=== PATIENT | male | born 1945 | race Caucasian/White ===

== ENCOUNTER → 2017-01-14 | Day surgery (SDC) | payer OTHER ==
[2016-12-28 09:05] VITALS: BMI 41.0
[~2017-01-14] VITALS: Ht 177.8 cm; Wt 129.6 kg
[~2017-01-14] MED LIST: ASPEC81 PO; COLE1TAB4 PO; FLNIN NAE; ISOS60TA25 PO; KETAMINE HCL INJ 50 MG/ML 10 ML VIAL ONE; LIDOCAINE HCL 2% 2 ML VIAL (20MG/ML) ONE; LISI-725 PO; METF-383 PO; METO-648 PO; MIDAZOLAM HCL 1 MG/ML 2ML VIAL ONE; MULTTAB58 PO; NITR0.4S UT; OMEG10007 PO; PROPOFOL IV EMULSION 10 MG/ML 20 ML VIAL IV ONE; TRIA37.5 PO
[2017-01-14 13:21] VITALS: Ht 177.8 cm; Wt 129.6 kg
--- NOTE | 2017-01-14 13:30 | Endo History and Physical ---
History & Physical Date of Service: January 14, 2017. Chief Complaint: Hx polyps Referring Physician: Dr. Conner History of Present Illness For Colonoscopy Past Surgical History Hx Cardiac Surgery: Yes (HEART CATH, STENT X1) Hx Internal Defibrillator: No Hx Pacemaker: No Hx Abdominal Surgery: No Hx of Implantable Prosthesis: No Hx Post-Op Nausea and Vomiting: No Hx Cancer Surgery: No Hx Thoracic Surgery: No Hx Orthopedic: No Hx Urinary Tract Surgery: No Family History Colon CA Social History Smoking Status: Never Smoker Hx Substance Use: No Hx Alcohol Use: Yes (OCCASIONAL) Allergies Coded Allergies: Statins (Verified Adverse Reaction, Intermediate, MYALGIAS, 12/28/16) Current Medications Reported Home Medications Medications Dose Route/Sig Max Daily Dose Days Date Category Nitrostat (Nitroglycerin) 0.4 Mg Sub 0.4 Mg UT PRN 06/08/13 Reported Multivitamin (Multiple Vitamin) 1 Tab Tab 1 Tab PO QAM 06/08/13 Reported Micronized Colestipol Hcl (Colestipol Hcl) 1 Gm Tab 2 Tablets PO BID 06/08/13 Reported Glucophage (Metformin Hcl) 850 Mg Tab 850 Mg PO BID 06/08/13 Reported Flonase Nasal [place] (Fluticasone Propionate) 120 Sprays/6000 Mcg Inha 2 Sprays SHASHI DAILY PRN 06/08/13 Reported Dyazide 37.5MG/25MG (Triamterene/HCTZ) Cap 2 Tabs PO QAM 06/08/13 Reported [place]-3 (Fish Oil) 1 Ea Cap 1 Cap PO QAM 09/02/10 Reported Imdur Ext Rel (Isosorbide Mononitrate) 60 Mg Ertab 60 Mg PO QAM 09/02/10 Reported Zestril (Lisinopril) 20 Mg Tab 20 Mg PO BID 09/02/10 Reported Ecotrin Or Generic * (Aspirin) 81 Mg Ectab 81 Mg PO QAM 09/02/10 Reported Vital Signs Weight (Kilograms): 129.55 Height (Feet): 5 Height (Inches): 10 Physical Exam General Appearance: WD/WN Respiratory/Chest: Respiratory effort: no dyspnea Cardiovascular: Heart Auscultation: RRR Abdomen: Inspection & Palpation: soft Assessment and Plan Hx of polyps for colonoscopy
--- NOTE | 2017-01-14 14:04 | Discharge Instructions ---
Endoscopy Patient Instructions Date / Procedure(s) Performed January 14, 2017. Colonoscopy Allergy Information Coded Allergies: Statins (Verified Adverse Reaction, Intermediate, MYALGIAS, 12/28/16) Discharge Date / Findings January 14, 2017. polyp, diverticulosis Medication Instructions Restart Stopped Medication(s): resume meds Reported Home Medications Medications Dose Route/Sig Max Daily Dose Days Date Category Nitrostat (Nitroglycerin) 0.4 Mg Sub 0.4 Mg UT PRN 06/08/13 Reported Multivitamin (Multiple Vitamin) 1 Tab Tab 1 Tab PO QAM 06/08/13 Reported Micronized Colestipol Hcl (Colestipol Hcl) 1 Gm Tab 2 Tablets PO BID 06/08/13 Reported Glucophage (Metformin Hcl) 850 Mg Tab 850 Mg PO BID 06/08/13 Reported Flonase Nasal [place] (Fluticasone Propionate) 120 Sprays/6000 Mcg Inha 2 Sprays SHASHI DAILY PRN 06/08/13 Reported Dyazide 37.5MG/25MG (Triamterene/HCTZ) Cap 2 Tabs PO QAM 06/08/13 Reported [place]-3 (Fish Oil) 1 Ea Cap 1 Cap PO QAM 09/02/10 Reported Imdur Ext Rel (Isosorbide Mononitrate) 60 Mg Ertab 60 Mg PO QAM 09/02/10 Reported Zestril (Lisinopril) 20 Mg Tab 20 Mg PO BID 09/02/10 Reported Ecotrin Or Generic * (Aspirin) 81 Mg Ectab 81 Mg PO QAM 09/02/10 Reported Provider Instructions Activity Restrictions - No exercising or heavy lifting for 24 hours. - Do not drink alcohol the day of the procedure. - Do not drive a car or operate machinery until the day after the procedure. - Do not make any important decisions or sign important papers in 24 hours after the procedure. Following Day: - Return to full activity which may include returning to work/school. Diet Start your diet with liquids and light foods (jello, soup, juice, toast). Then eat your usual diet if not nauseated. Treatment For Common After Affects For mild abdominal pain, bloating, or excessive gas: - Rest - Eat lightly - Lie on right side Follow-Up Information Follow-up with Dr Conner as scheduled Anesthesia Information What You Should Know You have had a procedure that required some medicine to reduce anxiety and discomfort. This treatment is called moderate sedation. After receiving the treatment, you may be sleepy, but you will be able to breathe on your own. The effects of the treatment may last for several hours. Follow these instructions along with Activity/Diet recommendations noted above: * Do NOT do anything where dizziness or clumsiness would be dangerous. * Rest quietly at home today, then you can be up and about tomorrow. * Have a responsible person stay with you the rest of today. * You may have had an I.V. today. If so, you may take the dressing off later today. Recommendations Call your doctor if: * Trouble breathing * Continuous vomiting for more than 24 hours * Temperature above 101 degrees * Severe abdominal pain or bloating * Pain not relieved by pain medicine ordered * There is increased drainage or redness from any incision * A large amount of rectal bleeding greater than 2-3 tablespoons. (If you had a polyp/s removed or have hemorrhoids, a small amount of blood - from the rectum is to be expected.) * You have any unanswered questions or concerns. IN THE EVENT OF A SERIOUS EMERGENCY, GO TO THE NEAREST EMERGENCY ROOM Your discharge instructions were prepared by provider Juan Ornelas. Patient Instructions Signature Page Moisés Peterson Patient (or Guardian) Signature/Date: I have read and understand the instructions given to me by my caregivers. Caregiver/RN/Doctor Signature/Date: The above-named patient and/or guardian has received patient instructions on this date. + Original Patient Signature Page (only) stays with chart. Please make copy for patient.
--- NOTE | 2017-01-14 14:08 | GI REPORT ---
Procedure Date: 01/14/2017 1:29 PM Procedure: Colonoscopy Indications: Personal history of colonic polyps Medicines: Midazolam 2 mg IV, Propofol total dose 120 mg IV, Lidocaine 40 mg IV, Ketamine 20 mg IV Complications: No immediate complications. Estimated Blood Loss: Estimated blood loss was minimal. Procedure: Pre-Anesthesia Assessment: - Prior to the procedure, a History and Physical was performed, and patient medications, allergies and sensitivities were reviewed. The patient's tolerance of previous anesthesia was reviewed. - The risks and benefits of the procedure and the sedation options and risks were discussed with the patient. All questions were answered and informed consent was obtained. After I obtained informed consent, the scope was passed under direct vision. Throughout the procedure, the patient's blood pressure, pulse, and oxygen saturations were monitored continuously. The scope was introduced through the anus and advanced to the cecum, identified by appendiceal orifice and ileocecal valve. The colonoscopy was performed without difficulty. The patient tolerated the procedure well. The quality of the bowel preparation was good. Findings: A few diverticula were found in the sigmoid colon. A 3 mm polyp was found in the rectum. The polyp was sessile. The polyp was removed with a cold biopsy forceps. Resection and retrieval were complete. Estimated blood loss was minimal. Impression: - Diverticulosis in the sigmoid colon. - One 3 mm polyp in the rectum, removed with a cold biopsy forceps. Resected and retrieved. Recommendation: - Discharge patient to home (ambulatory). - Continue present medications. - Await pathology results. - Return to primary care physician SHANIN. Juan Ornelas M.D. Juan Ornelas MD 01/14/2017 2:07:34 PM This report has been signed electronically. Note Initiated On: 01/14/2017 1:29 PM I attest to the content of the Intraoperative Record and orders documented therein, exceptions below
--- NOTE | 2017-01-14 14:26 | Anesthesiology Progress Note ---
Anesthesia Post Op Note Date & Time January 14, 2017 at 14:26 Vital Signs Vital Signs Past 12 Hours Date Time Temp Pulse Resp B/P Pulse Ox O2 Delivery O2 Flow Rate FiO2 01/14/17 14:21 69 18 119/69 95 Room Air 01/14/17 14:10 73 16 100/70 95 Room Air 01/14/17 13:32 36.3 87 18 149/85 97 Room Air Notes Mental Status: alert / awake / arousable, participated in evaluation Pt Amnestic to Procedure: Yes Nausea / Vomiting: adequately controlled Pain: adequately controlled Airway Patency, RR, SpO2: stable & adequate BP & HR: stable & adequate Hydration State: stable & adequate Anesthetic Complications: no major complications apparent Pt doing well.
[2017-01-14 14:40] VITALS: BP 145/82; PULSE 63; O2SAT 96
== END | disposition home or self-care (01) ==
LOC: C.GI 13:03
PROVIDERS: ATTEND Internal Medicine Gastroenterology
DX: K62.1 Rectal polyp (principal); K57.30 Diverticulosis of large intestine without perforation or abscess without bleeding; Z86.010 Personal history of colon polyps; Z80.0 Family history of malignant neoplasm of digestive organs; Z95.5 Presence of coronary angioplasty implant and graft; Z79.84 Long term (current) use of oral hypoglycemic drugs; Z79.899 Other long term (current) drug therapy

== ENCOUNTER 2017-12-21 09:18 | Observation (INO) | payer OTHER ==
[~2017-12-21] VITALS: Ht 175.3 cm; Wt 131.3 kg
[~2017-12-21 09:18] MED LIST changes: -KETAMINE HCL INJ 50 MG/ML 10 ML VIAL ONE; -LIDOCAINE HCL 2% 2 ML VIAL (20MG/ML) ONE; -METO-648 PO; +METO200T31 PO; -MIDAZOLAM HCL 1 MG/ML 2ML VIAL ONE; -PROPOFOL IV EMULSION 10 MG/ML 20 ML VIAL IV ONE
[2017-12-21 09:44] LABS: HEMATOCRIT 40.9 % (42-52); HEMOGLOBIN 13.9 g/dL (14.0-18.0); MEAN CELL VOLUME 88.9 fL (80-100); MEAN CORPUSCULAR HEMOGLOBIN 30.2 pg (25-34); MEAN PLATELET VOLUME 10.2 fL (7.4-10.4); PLATELET COUNT 238 K/uL (130-400); RED CELL DISTRIBUTION WIDTH CV 14.1 % (11.5-14.5); WHITE BLOOD COUNT 9.39 K/uL (4.8-10.8)
[2017-12-21 09:52] LABS: PTT PATIENT 24.5 SECONDS (21.0-31.0)
[2017-12-21 09:57] LABS: ALBUMIN 3.7 gm/dl (3.4-5.0); ALT/SGPT 37 U/L (12-78); AST/SGOT 38 U/L (15-37); BLOOD UREA NITROGEN 23 mg/dl (7-18); CALCIUM 8.9 mg/dl (8.5-10.1); CARBON DIOXIDE 24 mmol/L (21-32); GLUCOSE 114 mg/dl (70-99); POTASSIUM 4.3 mmol/L (3.5-5.1); SODIUM 138 mmol/L (136-145)
[2017-12-21 10:01] LABS: ALKALINE PHOSPHATASE 86 U/L (45-117); CKMB 0.5 ng/ml (0.5-3.6); TOTAL PROTEIN 7.1 gm/dl (6.4-8.2)
--- NOTE | 2017-12-21 10:15 | DIAGNOSTIC IMAGING REPORT ---
SINGLE VIEW CHEST CLINICAL HISTORY: Atypical chest pain. FINDINGS: An AP, portable, upright chest radiograph is compared to study dated 06/13/2014. The heart is enlarged. There is pulmonary vascular congestion. No airspace consolidation or large pleural effusion is identified. No pneumothorax is seen. The skeletal structures are osteopenic. The bony thorax is grossly intact. IMPRESSION: Cardiomegaly with evidence of mild congestive failure. Electronically signed by: Nikolai Bacon M.D. 12/21/2017 10:14 AM Dictated Date/Time: 12/21/2017 10:13 AM
[2017-12-21] MEDS ORDERED: MoRPHine SULFATE 4 MG/ML 1 ML CARP\\VIAL IV STA (11:07)
[2017-12-21] MEDS ORDERED: ONDANSETRON INJ 2 MG/ML 2 ML VIAL IV. SCH (11:15)
--- NOTE | 2017-12-21 11:49 | EMERGENCY ROOM VISIT NOTE ---
History First contact with patient: 09:35 Chief Complaint: CHEST PAIN Stated Complaint: CHEST PAIN Nursing Triage Summary: PT HERE WITH CHEST PAIN X A FEW WEEKS, PT STATES BECAME WORSE YESTERDAY. PT STATES INCREASED WITH MOVEMENT. PT DENIES ANY SOB, NAUSEA OR DIAPHORESIS. NO RADIATION OF PAINS. PT DOES HAVE SOME PITTING EDEMA TO BILATERAL LOWER LEGS. PT HAS HX OF CT 10 YEARS AGO. PT STATES TOOK NITRO FOR THE FIRST TIME IN 10 YEARS WITH ALLEVIATION OF PAIN History of Present Illness The patient is a 72 year old male who presents to the Emergency Room via EMS with complaints of chest pain. Patient states that he has had dull chest pain intermittently for the last week. He states the pain was just left of the sternum. He states he took nitro yesterday and it went away completely. He describes the pain as a pressure sensation and currently rates it at a 2 out of 10. This morning at 7:30 AM he states it was more severe and was worse when he got up from a sitting position. The EMS gave him nitroglycerin and aspirin. He states his pain did not completely go away. The patient denies any pain radiating to his arm or jaw. The patient denies any associated diaphoresis, shortness of breath, nausea or vomiting. The patient is not on any blood thinners. The patient states that he had an CT in the past approximately 10 years ago and was seen by Dr. Canchola and had a stent placed. He is unsure of where the CT was located. The patient states that he always has pitting edema of both his lower legs. He states that is not worse than normal. The patient is followed by [facility]. Review of Systems 10 system review was performed and was negative unless stated otherwise history of present illness. Past Medical/Surgical History Medical Problems: (1) Ankle pain (2) Gout of ankle (3) Heart disease (4) Hyperlipidemia Nec/Nos (5) Hypertension Nos (6) Leg edema, right (7) Personal History Of Pulmonary Embolism Family History Heart disease Social History Smoking Status: Never Smoker Alcohol Use: none Drug Use: none Marital Status: Housing Status: lives with family Occupation Status: retired Current/Historical Medications Scheduled Aspirin Enteric Coated (Ecotrin Or Generic *), 81 MG PO QAM Colestipol Hcl (Micronized Colestipol Hcl), 2 TABLETS PO BID Fish Oil ([place]-3), 1 CAP PO QAM Isosorbide Mononitrate Ext Rel (Imdur Ext Rel), 60 MG PO QAM Lisinopril (Zestril), 20 MG PO BID Metformin Hcl (Glucophage), 850 MG PO BID Metoprolol Succinate (Toprol Xl), 200 MG PO QAM Multiple Vitamin (Multivitamin), 1 TAB PO QAM Nitroglycerin (Nitrostat), 0.4 MG UT PRN Triamterene/Hctz (Dyazide 37.5MG/25MG), 2 TABS PO QAM Scheduled PRN Fluticasone Propionate (Flonase Nasal [place]), 2 SPRAYS SHASHI DAILY PRN for NASAL CONGESTION Physical Exam Vital Signs Date Time Temp Pulse Resp B/P (MAP) Pulse Ox O2 Delivery O2 Flow Rate FiO2 12/21/17 11:30 77 21 177/93 96 Room Air 12/21/17 10:28 63 16 155/87 97 Room Air 12/21/17 09:42 96 Room Air 12/21/17 09:42 96 Room Air 12/21/17 09:37 70 12/21/17 09:22 36.6 70 16 153/77 96 Room Air Physical Exam GENERAL: Morbidly obese 72-year-old white male appears in no acute distress. He is resting comfortably on the stretcher. MENTAL Status alert and oriented 3. EYES: PERRLA. EOMs intact. EARS: Canals clear. TMs without fluid level noted. NECK: Supple, no lymphadenopathy noted. No carotid bruits noted. LUNGS: Clear auscultation without wheezes rales or rhonchi. CARDIAC: Regular rate and rhythm without murmur. Pulses is full and equal throughout. CHEST WALL: Nontender to palpation. ABDOMEN: Positive bowel sounds all 4 quadrants. Soft, nontender to palpation. Difficult to evaluate for organomegaly or masses secondary to patient's size. LOWER EXTREMITIES: 1+ pitting edema bilaterally. No erythema or cyanosis noted. Calves are nontender. Medical Decision & Procedures ER Provider Diagnostic Interpretation: SINGLE VIEW CHEST CLINICAL HISTORY: Atypical chest pain. FINDINGS: An AP, portable, upright chest radiograph is compared to study dated 06/13/2014. The heart is enlarged. There is pulmonary vascular congestion. No airspace consolidation or large pleural effusion is identified. No pneumothorax is seen. The skeletal structures are osteopenic. The bony thorax is grossly intact. IMPRESSION: Cardiomegaly with evidence of mild congestive failure. Electronically signed by: Nikolai Bacon M.D. 12/21/2017 10:14 AM Laboratory Results 12/21/17 08:29 12/21/17 08:29 Test 12/21/17 08:29 12/21/17 11:05 Red Blood Count 4.60 M/uL (4.7-6.1) Mean Corpuscular Volume 88.9 fL (80-100) Mean Corpuscular Hemoglobin 30.2 pg (25-34) Mean Corpuscular Hemoglobin Concent 34.0 g/dl (32-36) RDW Standard Deviation 46.0 fL (36.4-46.3) RDW Coefficient of Variation 14.1 % (11.5-14.5) Mean Platelet Volume 10.2 fL (7.4-10.4) Prothrombin Time 10.3 SECONDS (9.0-12.0) Prothromb Time International Ratio 1.0 (0.9-1.1) Activated Partial Thromboplast Time 24.5 SECONDS (21.0-31.0) Partial Thromboplastin Ratio 0.9 Anion Gap 9.0 mmol/L (3-11) Est Creatinine Clear Calc Drug Dose 58.8 ml/min Estimated GFR () 52.8 Estimated GFR (Non- 45.5 BUN/Creatinine Ratio 15.6 (10-20) Calcium Level 8.9 mg/dl (8.5-10.1) Total Bilirubin 0.5 mg/dl (0.2-1) Aspartate Amino Transf (AST/SGOT) 38 U/L (15-37) Alanine Aminotransferase (ALT/SGPT) 37 U/L (12-78) Alkaline Phosphatase 86 U/L (45-117) Total Creatine Kinase 58 U/L (39-308) Creatine Kinase MB 0.5 ng/ml (0.5-3.6) Creatine Kinase MB Ratio 0.9 (0-3.0) Total Protein 7.1 gm/dl (6.4-8.2) Albumin 3.7 gm/dl (3.4-5.0) Globulin 3.4 gm/dl (2.5-4.0) Albumin/Globulin Ratio 1.1 (0.9-2) Troponin I < 0.015 ng/ml (0-0.045) Medications Administered Medications (Trade) Dose Ordered Sig/John Route Start Time Stop Time Status Last Admin Dose Admin Morphine Sulfate (MoRPHine SULFATE INJ) 4 mg NOW STAT IV 12/21/17 11:07 12/21/17 11:09 DC 12/21/17 11:22 4 MG Ondansetron HCl (Zofran Inj) 4 mg Q6H IV. 12/21/17 11:15 01/20/18 11:14 12/21/17 11:22 4 MG ECG Per My Interpretation Indication: chest pain Rhythm: sinus rhythm Findings: 1st degree AV block, no acute ischemic change Change: no significant change ED Course She was evaluated. The patient was placed on a monitor and continuous pulse ox. EKG was ordered interpreted without any acute findings. This was compared to prior EKG of June 13, 2014. There reveals sinus rhythm with first-degree AV block. Inferior infarct age undetermined as well as anterior lateral infarct age undetermined that this was similar to prior EKG. No acute ST changes noted. IV access was obtained. CBC and differential, complete metabolic profile, CK-MB, coags, troponin was ordered. Urinalysis was ordered. The patient had already received nitroglycerin and aspirin in route. Chest x- ray was ordered interpreted by the radiologist and myself as above with cardiomegaly and mild congestive heart failure. Remainder of labs were unremarkable. Troponin was normal. A second troponin was ordered and was also within normal range. Patient was independently evaluated by Dr. Mccallum who agree with treatment plan. The patient was given morphine 4 mg IV for pain. Hospitalist was consulted for admission for cardiac rule out.. Medical Decision Due to the patient's history of CAD, his obesity, and mild CHF I felt that it was reasonable to admit the patient for cardiac rule out. Other etiologies which I were of low suspicion were pneumonia, bronchitis, costochondritis, pulmonary embolus, muscular strain [place] Drug Monitoring Program Search Results: patient reviewed within database Medication Reconcilliation Current Medication List: was personally reviewed by me Blood Pressure Screening Patient's blood pressure: Elevated blood pressure Impression Primary Impression: Chest pain in adult Departure Information Dispostion Being Evaluated By Hospitalist Condition GOOD Referrals Sohan Lawler M.D. (PCP) Patient Instructions My [facility]
[2017-12-21 11:56] VITALS: Ht 175.3 cm; Wt 131.3 kg
[2017-12-21] MEDS ORDERED: POLYETHYLENE (MIRALAX) 17 GM PACK PO PRN (14:00)
[2017-12-21] MEDS ORDERED: ZOLPIDEM TARTRATE 5 MG TAB PO PRN (14:00)
[2017-12-21] MEDS ORDERED: FLUTICASONE PROPIONATE NA SPR 16 GM BTL NAE PRN (14:00)
[2017-12-21] MEDS ORDERED: ACETAMINOPHEN 325 MG TAB PO PRN (14:00)
[2017-12-21] MEDS ORDERED: NITROGLYCERIN 0.4 MG SL PER TAB CHARGE SL PRN (14:00)
[2017-12-21] MEDS ORDERED: MAGNESIUM HYDROXIDE SUSP 30 ML UDC PO PRN (14:00)
[2017-12-21] MEDS ORDERED: ONDANSETRON INJ 2 MG/ML 2 ML VIAL IV PRN (14:00)
[2017-12-21] MEDS ORDERED: ALUMINUM/MAGNESIUM/SIMETH (MAALOX MAX) 30 ML UDC PO PRN (14:00)
--- NOTE | 2017-12-21 14:11 | History and Physical ---
History & Physical Date of Service Dec 21, 2017. History & Physical chest pain rule out, [id number]
[2017-12-21] MEDS ORDERED: GLUCAGON FOR INJ 1 MG VIAL SQ PRN (14:15)
[2017-12-21] MEDS ORDERED: GLUCOSE 10 TABS/TUBE PO PRN (14:15)
[2017-12-21] MEDS ORDERED: DEXTROSE 50% 50 ML SYR IV PRN (14:15)
[2017-12-21] MEDS ORDERED: GLUCOSE 40% GEL 15 GM TUBE PO PRN (14:15)
[2017-12-21 14:17] LABS: HEMOGLOBIN A1C 6.6 % (4.5-5.6)
[2017-12-21] MEDS ORDERED: IV FLUIDS COMPLETED PRN (14:45)
[2017-12-21 14:57] VITALS: BP 156/87; PULSE 59; TEMP 36.3; O2SAT 95
--- NOTE | 2017-12-21 15:39 | HISTORY & PHYSICAL EXAMINATION ---
DATE OF ADMISSION: 12/21/2017 This is observation H&P. CHIEF COMPLAINT: Chest pain. HISTORY OF PRESENT ILLNESS: Patient is a 72-year-old white male with a significant past medical history of CAD, stent, gout, dyslipidemia, hypertension, pulmonary embolization came to the hospital Emergency Department because of the above chief complaint. Patient reported has been having chest pain, intermittent for several weeks. Yesterday afternoon and today it is getting worse, associated with some middle chest tight. It was so severe and getting worse when getting up from sitting positions. He called EMS. EMS gave him nitroglycerin and aspirin. He reported the pain did not completely go away. Denied any radiations. Denied any association with diaphoresis or shortness of breath or nausea and vomiting. He reported history of PE, but is not on any blood thinners. History of acute MT, had a cardiac catheterization and stent by Dr. Canchola, 10-year ago. Patient was to follow up with [facility] PCP. His PCP is no more with [facility] system. When I interviewed the patient, he is pleasant, awake, alert and orientated. Reports still has mild chest tight and uncomfortable appropriately 10/12. Denied fever or chills. Denied shortness of breath. Denied cough or sputum. Denied hemoptysis. Denied nausea, vomiting, abdominal pain, diarrhea or constipation. Denied dysuria, urgency and frequencies. Denied skin rashes. PAST MEDICAL HISTORY: Like I mentioned in the above which include CAD, obesity, mild CHF, dyslipidemia, hypertension, history of PE. ALLERGIES: STATINS. FAMILY HISTORY: Includes heart disease. SOCIAL HISTORY: Never smoked. Denied alcohol abuse disorder, denied illicit drug abuse. Patient is retired. MEDICATIONS: Include aspirin 81 mg p.o. daily, colestipol 2 tablets p.o. b.i.d., fish oil 1 cap p.o. q.a.m., Imdur 60 mg p.o. q.a.m., lisinopril 20 mg p.o. b.i.d., metformin 850 mg p.o. b.i.d., metoprolol 200 mg p.o. q.a.m., multivitamin 1 tab p.o. q.a.m., nitroglycerin 0.4 mg p.o. p.r.n. for chest pain, Dyazide 37.5/25 two tab p.o. q.a.m., Flonase 2 sprays bilateral nose p.r.n. for nasal congestion. REVIEW OF SYSTEMS: Please see HPI, otherwise 14-point organ system review were negative. PHYSICAL EXAMINATION: VITAL SIGNS: Temperature is 36.6, pulse 86, respiratory rate 16, blood pressure 153/77, pulse ox 96% on room air. GENERAL: Patient is a white male, awake, alert and orientated, obesity, pleasant, conversational, in no acute distress. HEAD: Normocephalic. EYES: Pupils equal, round, responds to light. EARS: Ear was normal. NOSE: Normal. NECK: Supple. Thyroid no enlargement. Trachea midline. HEART: Regular rhythm. S1, S2. LUNGS: Decreased breathing sounds. There were no wheezing, rhonchi or crackles. ABDOMEN: Obese, soft, nontender. Bowel sound was positive. Bilateral CVA was nontender. GENITOURINARY AND RECTAL: Deferred. BILATERAL LOWER EXTREMITIES: 1+ pitting edema. There was no cyanosis, no clubbing. LABORATORY STUDIES: WBC 9.3, hemoglobin 13, platelet 238. BUN 23, creatinine 1.5 compared to baseline creatinine 1.3. Blood glucose 114. Sodium 138. Potassium 4.3. WBC 9.3. IMAGING STUDIES: Chest x-ray in the Emergency Room shows cardiomegaly with evidence of mild congestive failure. EKG was done which shows sinus rhythm, first degree AV block, left axis deviations, low voltages of QRS, inferior old infarctions. There were no obvious ST-T phase changes. ASSESSMENT AND PLAN: A 72-year-old white male with the conditions as below: 1. Chest pain, rule out ACS , with history of coronary artery disease, stent. 2. History of pulmonary embolism, not on any anticoagulation. 3. Accelerated hypertension. 4. Possible mild congestive heart failure with 1+ edema and mild lung congestion in chest x-ray, possible compensated. 5. History of gout and dyslipidemia. PLAN: 1. Patient has obvious history of chest pain, history of coronary artery disease, stent. Two sets of cardiac enzyme troponin is negative. Will observation in the hospital, cardiac enzyme troponin x2 sets more. Continue home medications include aspirin and beta ruby, will have cardiology consultation. We will order a stress echo tomorrow if able to do it. Check BNP. Patient possible dose not need to have further evaluation for PE for now because he has no chest pain, no cough, no hemoptysis. He does not have any complaint of lower extremity calf pain. His oxygen is 96% in room air, however he has hx of PE, with mild elevated Ddimer,will do chest CT to rule out PE, discussed risks and benefits of iv cont, pt agrees to take risks, will give some ivf. f/u renal function. 2. Patient has acute kidney injuries. I will hold metformin, 3. hx of DMII, hold metformin,check HbA1c, order insulin sliding scale, will continue SOPHIE inhibitor for now, will check BNP as well. 4 . Continue home other medications. Check fasting lipid panel. 5. I discussed with patient about the care plan and answered all their questions, patient is full code. MTDD
--- NOTE | 2017-12-21 15:41 | EMERGENCY ROOM VISIT NOTE ---
ED Visit Note First contact with patient: 09:35 I have personally seen and evaluated the patient with the PA. I agree with the diagnosis and management decisions and have been personally involved in the case. Please see Nataly Villanueva PA-C's notes for further details of the history, physical and visit.
[2017-12-21 16:00] VITALS: O2SAT 95
[2017-12-21] MEDS ORDERED: OPTIRAY 320 IV PRN (16:00)
--- NOTE | 2017-12-21 17:12 | DIAGNOSTIC IMAGING REPORT ---
CT ANGIOGRAM OF THE CHEST CLINICAL HISTORY: Elevated d-dimer. COMPARISON STUDY: Chest x-ray dated 12/21/2017. Chest CT scan dated 10/06/2010. TECHNIQUE: Following the IV administration of approximately 60 cc of Optiray 320, CT angiogram of the chest was performed from the upper abdomen to the thoracic inlet utilizing the pulmonary embolus protocol. Images are reviewed in the axial, sagittal, and coronal planes. 3-D MIPS images are created and assessed. IV contrast was administered without complication. A dose lowering technique was utilized adhering to the principles of ALARA. There was an IV tubing malfunction during injection and only approximately half of the intended 118 cc bolus was injected. There is adequate opacification of the pulmonary arteries. The examination is degraded by motion artifact. CT DOSE: 688.44 mGy.cm FINDINGS: Thyroid: Imaged portions of the thyroid gland are normal in size and attenuation. Thoracic aorta: The thoracic aorta is normal in caliber and demonstrates 4-vessel variant arch anatomy. No dissection is seen. Pulmonary vasculature: The pulmonary trunk is normal in caliber. There are no filling defects identified in main, lobar, or proximal segmental pulmonary branches to suggest pulmonary embolus. Evaluation of the peripheral branches is degraded by motion artifact and suboptimal contrast opacification. Heart: The heart is mildly enlarged and without pericardial effusion. The coronary arteries are densely calcified. Lungs and pleural spaces: Evaluation of the lung parenchyma is degraded by motion artifact. No airspace consolidation or pleural effusion is identified. The trachea and central airways appear clear. Mediastinum: There is no mediastinal lymphadenopathy. Anita: Clear. Axillae: There is no axillary lymphadenopathy. Upper abdomen: Partially visualized upper abdominal viscera is within normal limits. Skeletal structures: The skeletal structures are osteopenic. 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 Arthritic change is also seen in the shoulders. No lytic or blastic bony lesions are seen. IMPRESSION: 1. Motion compromised examination. 2. There is no evidence of central pulmonary embolus in the main, lobar, or proximal segmental pulmonary arteries. 3. No airspace consolidation or pleural effusion is identified. 4. Cardiomegaly. Electronically signed by: Nikolai Bacon M.D. 12/21/2017 5:11 PM Dictated Date/Time: 12/21/2017 5:06 PM
[2017-12-21] MEDS: INSULIN ASPART 100 UNITS/ML 3 ML PEN SC SCH ×2 (17:36→21:00)
[2017-12-21] MEDS ORDERED: SODIUM CHLORIDE 0.9% 1000ML 1,000 ML IV SCH (17:45)
[2017-12-21 18:21] VITALS: BP 143/74; PULSE 56; TEMP 36.5; O2SAT 96
[2017-12-21] MEDS ORDERED: ENOXAPARIN 40 MG/0.4 ML SYR SC SCH (21:00)
[2017-12-21] MEDS: COLESTIPOL HCL 1 GM TAB PO SCH (21:21)
[2017-12-21] MEDS: HEPARIN SOD 5000 UNIT/0.5 ML CARP SQ SCH (21:22)
[2017-12-21] MEDS: LISINOPRIL 20 MG TAB PO SCH (21:24)
[2017-12-21 22:46] VITALS: BP 113/68; PULSE 56; TEMP 36.5; O2SAT 94
[2017-12-22] VITALS (7 sets, daily range): BP systolic 98–128; BP diastolic 57–76; PULSE 57–63; TEMP 36.5–36.8; O2SAT 92–96
[2017-12-22] MEDS: MoRPHine SULFATE 2 MG/ML CARP IV PRN ×2 (03:57→15:41)
[2017-12-22] MEDS: OMEGA-3 (PURIFIED FISH OIL) 1 GM CAP PO SCH (08:55)
[2017-12-22] MEDS: TRIAMTERENE/HCTZ 37.5/25MG CAP PO SCH (08:55)
[2017-12-22] MEDS: LISINOPRIL 20 MG TAB PO SCH ×2 (08:55→21:10)
[2017-12-22] MEDS: ISOSORBIDE MONONITRATE 60 MG TABCR PO SCH (08:56)
[2017-12-22] MEDS: MULTIVITAMIN TAB PO SCH (08:56)
[2017-12-22] MEDS: METOPROLOL SUCC 50MG EXT REL TAB PO SCH (08:56)
[2017-12-22] MEDS: ASPIRIN 81 MG ECTAB PO SCH (08:57)
[2017-12-22] MEDS: HEPARIN SOD 5000 UNIT/0.5 ML CARP SQ SCH ×2 (08:59→21:13)
[2017-12-22] MEDS ORDERED: ASPIRIN 81 MG ECTAB PO SCH (09:00)
[2017-12-22] MEDS: INSULIN ASPART 100 UNITS/ML 3 ML PEN SC SCH ×4 (09:55→21:00)
[2017-12-22] MEDS: COLESTIPOL HCL 1 GM TAB PO SCH ×2 (09:55→21:10)
[2017-12-22 10:01] LABS: BLOOD UREA NITROGEN 23 mg/dl (7-18); CALCIUM 9.1 mg/dl (8.5-10.1); CARBON DIOXIDE 28 mmol/L (21-32); CREATININE 1.51 mg/dl (0.60-1.40); GLUCOSE 124 mg/dl (70-99); POTASSIUM 4.3 mmol/L (3.5-5.1); SODIUM 138 mmol/L (136-145)
[2017-12-22 10:06] LABS: CHOLESTEROL 208 mg/dl (0-200); LDL CHOLESTEROL CALCULATED 92 mg/dl; PHOSPHORUS 3.1 mg/dl (2.5-4.9)
--- NOTE | 2017-12-22 13:48 | CARDIOLOGY CONSULTATION ---
DATE OF CONSULTATION: 12/22/2017 TIME: 11:58 a.m. CONSULTING PHYSICIAN: Saran Martinez MD REASON FOR CONSULTATION: Chest pain. PRIMARY TUB ATTENDANT: Dr. Canchola. HISTORY OF PRESENT ILLNESS: Mr. Peterson is a very pleasant 72-year-old gentleman with a history significant for CAD status post anterior MN in August of 2007, status post PCI, ischemic cardiomyopathy, type 2 diabetes, hypertension, dyslipidemia intolerant to statin therapy, who presented to [facility] with chest pain. He states for the past 2 weeks he has had intermittent chest discomfort, but his symptoms severely worsened 2 days ago. Two days ago after he had a bowel movement, he got up from the commode and had a left-sided sharp chest pain that was much more severe than anything he has experienced in the past. He took nitroglycerin and his pain resolved within 30 minutes. He took another nitroglycerin later that evening for chest discomfort as well. Yesterday morning, he had another bowel movement and when he got up off the commode he once again had chest discomfort; however, this time it was substernal and very severe sharp pain that lasted 15 seconds. He took nitroglycerin which improved his symptoms quickly, but his symptoms did not resolve. He then had a dull sensation that lasted a couple of hours before completely resolved. He states that if he is completely still. He is asymptomatic, but when he gets up or sometimes twists in bed, he will get a mild chest discomfort. There is no radiation of the pain, no shortness of breath, no diaphoresis, and no other associated symptoms. When asked if ambulation improves or worsens his pain, he was not entirely sure. He states that his answers may not be 100% accurate with some of the finer details of his history. He is certain, however, that this dull pain reminds him of his prior myocardial infarction and is such that the symptoms are similar. The sharp pain was unlike anything he has experienced in the past. He is currently chest pain free. He denies shortness of breath, syncope, near syncope, palpitations, edema, melena, hematochezia, hematuria, bleeding, abdominal pain, nausea, vomiting, fevers or chills. REVIEW OF SYSTEMS: As above. Review of systems is otherwise negative/unremarkable. PAST MEDICAL HISTORY: 1. CAD status post anterior MN and LAD PCI with a 3.5 x 15 mm stent in the early mid LAD on 08/04/2007. He also documented ostial circumflex 70% and a subtotal distal RCA stenosis per report. 2. Ischemic cardiomyopathy. 3. Type 2 diabetes. 4. Hypertension. 5. Dyslipidemia, intolerant to statin therapy. 6. Meniere's disease. 7. Pulmonary embolism. HOME MEDICATIONS: Include aspirin 81 mg daily, metoprolol succinate 200 mg daily, Imdur 60 mg daily, lisinopril 20 mg b.i.d., metformin 850 mg b.i.d., colestipol 2 tablets twice daily, fish oil 1 tablet daily, Dyazide 37.5/25 two tabs daily. INPATIENT MEDICATIONS: Include aspirin 81 mg daily, colestipol 1 gram b.i.d., fish oil 1 gram daily, heparin 5,000 units subQ q. 12 hours, Imdur 60 mg daily, lisinopril 20 mg b.i.d., metoprolol succinate 200 mg daily, Dyazide 37.5/25 two capsules daily. ALLERGIES: He is intolerant to statin therapy. SOCIAL HISTORY: Denies tobacco, alcohol abuse. He has not been . He has no children. He lives alone. He is retired and moved to [place], [place] from [place]. He is currently alone in his hospital room. FAMILY HISTORY: Father from [place] at age 60. Mother had [place] at approximately 64 years of age. PHYSICAL EXAMINATION: VITAL SIGNS: Temperature 36.7 degrees, heart rate 62 beats per minute, respiration rate 20, blood pressure 128/76 mmHg, oxygen saturation is 96% on room air, weight 131.8 kilogram. GENERAL: No acute distress. He is alert and oriented. HEENT: Anicteric sclerae. NECK: Thick, but no appreciable JVD. No bruits. Normal carotid upstrokes bilaterally. CARDIAC EXAMINATION: PMI was nonpalpable. There was no ventricular heave. Regular, normal S1 and S2. No audible murmurs, rubs or gallops. LUNGS: Clear to auscultation bilaterally without wheezes, rales or rhonchi. ABDOMEN: Soft, nontender, nondistended. Normoactive bowel sounds, no bruits noted. EXTREMITIES: No cyanosis or pitting edema. 2+ radial pulses bilaterally. 2+ dorsalis pedis pulses bilaterally. No palpable cords. CHEST: Nontender to palpation. PSYCHIATRIC: Affect appears appropriate. LABORATORY DATA: White blood cell count is 9.39, hemoglobin 13.9, platelets 238. Sodium 138, potassium 4.3, BUN 23, creatinine 1.51, magnesium 1.9. Troponin negative x5. ProBNP 302, triglycerides 360. Cholesterol 208, LDL 92, HDL 44. D-dimer 510. CT angiogram of the chest 12/21/2017 reported motion compromised exam. No evidence of central PE. ECG personally reviewed demonstrating sinus rhythm with first degree AV block at 73 BPM, inferior and anterior infarct suggested. Telemetry personally reviewed. He had a 6 beat episode of accelerated idioventricular rhythm as well as a ventricular triplet. No other arrhythmia. Cardiac catheterization findings as noted above. Echocardiogram 09/09/2010 reported LV systolic function of 35%-40%. There was apical akinesis and septal akinesis per report. ASSESSMENT AND PLAN: 1. Atypical chest pain: His chest discomfort was atypical. It tends to occur with movement; however, this could represent a musculoskeletal component as twisting of his torso appears to cause his symptoms as well as getting up from a seated position. It is unclear if actual ambulation worsens his symptoms. Given the fact, however, that it resembles his prior angina during his myocardial infarction, it would not be unreasonable to undergo the dobutamine stress echo that is currently pending for tomorrow. His troponins were not elevated and he did have a prolonged episode of chest discomfort, which would make ischemic causes of his pain less likely, but he does continue to have the pain and therefore, ischemic evaluation is reasonable. There is no urgent indication for cardiac catheterization. 2. Coronary artery disease status post percutaneous coronary intervention. Continue aspirin 81 mg daily indefinitely. Chest discomfort as described above. Continue beta ruby. He is intolerant to statin therapy. 3. Hypertension: Blood pressure adequately controlled. Continue home regimen. 4. Dyslipidemia: Intolerant to statin therapy. 5. Ischemic cardiomyopathy: Echocardiogram to further evaluate his LV systolic function as part of the stress echo, he appears to be compensated and euvolemic on exam. Continue beta ruby and SOPHIE inhibitor. 6. Disposition: Cardiology will continue to follow. Dr. Canchola, his primary employment security officer, will resume his cardiology care tomorrow. Greater than 40 minutes time spent with greater than 50% of time spent counseling patient. Thank you for allowing me to participate in care of Mr. Peterson.
--- NOTE | 2017-12-22 21:54 | Progress Note ---
Subjective Date of Service: Dec 22, 2017. Subjective Pt evaluation today including: conversation w/ patient, physical exam, lab review, conversation w/ programmer analyst consultant, review of inpatient medication list Pain: chest pressure when he walked in [place] PO Intake: adequate Voiding: no voiding problems patient described recent chest pain as sharp, midsternal, first occurred after having BM on Saturday then occurred on Saturday, was not exerting himself relieved with Nitro similar to pain when he had NH 10 years ago admits that he is not active, does not exert himself, suffers from gout has been sedentary for a year, increased fatigue, weight gain labs show negative troponin x 5 sets, EKG shows 1st degree AV block CTA chest negative for PE later in afternoon patient ambulated in the halls, had chest pressure, had to sit back down discussed with Dr. Bentley, plan for dobutamine stress echo tomorrow Problem List Medical Problems: (1) Chest pain in adult Status: Acute Review of Systems Constitutional: + weakness, + fatigue Cardiac: + chest pain All Other Systems: Reviewed and Negative Medications Current Inpatient Medications Medications (Trade) Dose Ordered Sig/John Route Start Time Stop Time Status Last Admin Dose Admin Acetaminophen (Tylenol Tab) 650 mg Q4H PRN PO 12/21/17 14:00 01/20/18 13:59 Al Hydrox/Mg Hydrox/Simethicone (Maalox Max Susp) 15 ml Q4H PRN PO 12/21/17 14:00 01/20/18 13:59 Magnesium Hydroxide (Milk Of Magnesia Susp) 30 ml Q12H PRN PO 12/21/17 14:00 01/20/18 13:59 Zolpidem Tartrate (Ambien Tab) 5 mg HSZ PRN PO 12/21/17 14:00 01/20/18 13:59 Ondansetron HCl (Zofran Inj) 4 mg Q6H PRN IV 12/21/17 14:00 01/20/18 13:59 Nitroglycerin (Nitrostat Tab) 0.4 mg UD PRN SL 12/21/17 14:00 01/20/18 13:59 Morphine Sulfate (MoRPHine SULFATE INJ) 2 mg Q30M PRN IV 12/21/17 14:00 01/04/18 13:59 12/22/17 15:41 2 MG Aspirin (Ecotrin Tab) 81 mg QAM PO 12/22/17 09:00 01/21/18 08:59 12/22/17 08:57 81 MG Polyethylene (Miralax Powder Packet) 17 gm DAILY PRN PO 12/21/17 14:00 01/20/18 13:59 Heparin Sodium (Porcine) (Heparin Sq 5000 Unit/0.5ml) 5,000 unit Q12 SQ 12/21/17 21:00 01/20/18 20:59 12/22/17 21:13 5,000 UNIT Colestipol HCl (Colestid Tab) 1 gm BID@1000,2200 PO 12/21/17 22:00 01/20/18 21:59 12/22/17 21:10 1 GM Fish Oil ([place]-3 (Purified Fish Oil) Cap) 1 gm QAM PO 12/22/17 09:00 01/21/18 08:59 12/22/17 08:55 1 GM Fluticasone Propionate (Flonase Nasal [place]) 2 sprays DAILY PRN SHASHI 12/21/17 14:00 01/20/18 13:59 Isosorbide Mononitrate (Imdur Ext Rel Tab) 60 mg QAM PO 12/22/17 09:00 01/21/18 08:59 12/22/17 08:56 60 MG Lisinopril (Zestril Tab) 20 mg BID PO 12/21/17 21:00 01/20/18 20:59 12/22/17 21:10 20 MG Metoprolol Succinate (Toprol Xl Tab) 200 mg QAM PO 12/22/17 09:00 01/21/18 08:59 12/22/17 08:56 200 MG Multivitamins (Multivitamin Tab) 1 tab QAM PO 12/22/17 09:00 01/21/18 08:59 12/22/17 08:56 1 TAB Triamterene/HCTZ (Dyazide 37.5/25 Mg Cap) 2 cap QAM PO 12/22/17 09:00 01/21/18 08:59 12/22/17 08:55 2 CAP Insulin Aspart (novoLOG ASPART) SLIDING SCALE G... ACHS SC 12/21/17 16:00 01/20/18 15:59 12/22/17 17:34 2 UNITS Glucose (Glucose 40% Gel) 15-30 GRAMS 15 GRAMS... UD PRN PO 12/21/17 14:15 01/20/18 14:14 Glucose (Glucose Chew Tab) 4-8 Tablets 4 Tabl... UD PRN PO 12/21/17 14:15 01/20/18 14:14 Dextrose (Dextrose 50% 50ML Syringe) 25-50ML OF 50% DW IV FOR... UD PRN IV 12/21/17 14:15 01/20/18 14:14 Glucagon (Glucagon Inj) 1 mg UD PRN SQ 12/21/17 14:15 01/20/18 14:14 Miscellaneous (Iv Fluids Completed) 1 ea PRN PRN N/A 12/21/17 14:45 12/21/18 14:44 Ioversol (Optiray 320) 100 ml UD PRN IV 12/21/17 16:00 12/25/17 15:59 Objective Vital Signs Date Time Temp Pulse Resp B/P (MAP) Pulse Ox O2 Delivery O2 Flow Rate FiO2 12/22/17 20:00 Room Air 12/22/17 19:32 36.8 59 20 115/68 (84) 96 Room Air 12/22/17 16:00 Room Air 12/22/17 15:41 36.5 63 18 102/60 (74) 93 Room Air 12/22/17 12:00 36.8 61 18 108/63 (78) 94 Room Air 12/22/17 12:00 Room Air 12/22/17 08:54 62 128/76 (93) 12/22/17 08:00 Room Air 12/22/17 07:11 36.7 62 20 118/74 (89) 96 Room Air 12/22/17 04:39 36.8 57 20 126/72 (90) 94 Room Air 12/22/17 04:00 Room Air 12/22/17 00:00 Room Air 12/21/17 22:46 36.5 56 20 113/68 (83) 94 Room Air Physical Exam General Appearance: no apparent distress, + obese Eyes: normal inspection, EOMI, sclerae normal ENT: normal ENT inspection, hearing grossly normal, pharynx normal Neck: supple, no adenopathy, no JVD, trachea midline Respiratory/Chest: chest non-tender, lungs clear, normal breath sounds, no respiratory distress, no accessory muscle use Cardiovascular: regular rate, rhythm, no edema, no gallop, no JVD, no murmur Abdomen: normal bowel sounds, non tender, soft, no organomegaly Extremities: normal range of motion, non-tender, normal inspection, no pedal edema, no calf tenderness, pelvis stable Neurologic/Psychiatric: 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2 BUN/Creatinine Ratio 15.4 Random Glucose 124 mg/dl Calcium Level 9.1 mg/dl Phosphorus Level 3.1 mg/dl Magnesium Level 1.9 mg/dl Triglycerides Level 360 mg/dl Cholesterol Level 208 mg/dl HDL Cholesterol 44 mg/dl LDL Cholesterol, Calculated 92 mg/dl VLDL Cholesterol, Calculated 72 mg/dl Cholesterol/HDL Ratio 4.7 Test 12/22/17 13:44 12/22/17 16:49 12/22/17 20:44 Troponin I < 0.015 ng/ml Bedside Glucose 120 mg/dl 107 mg/dl Assessment and Plan 72 yo male with history of NH 10 years ago with one cardiac stent, h/o PE 5 years ago that was treated with Coumadin, presented with intermittent sharp substernal chest pain - Chest pain: no evidence of ACS, troponin negative x 5, EKG without signs of ischemia not a PE, CTA chest negative had chest pressure when ambulating, could be angina patient agrees to dobutamine stress echo tomorrow 10 years ago on cath he had disease in multiple vessels, just not severe, was warned that he may need CABG someday continue aspirin, Fish oil, Toprol, Imdur, Lisinopril - H/o PE: no PE on CTA chest was treated with Coumadin for a year, no longer on anticoagulation - HTN: BP better controlled today, maintain home regimen - Gout: impairs ability to perform exercise stress test DVT prophylaxis: Heparin SC
[2017-12-23 03:52] VITALS: BP 130/75; PULSE 66; TEMP 36.8; O2SAT 95
[2017-12-23] MEDS: MoRPHine SULFATE 2 MG/ML CARP IV PRN (04:00)
[2017-12-23 06:49] VITALS: BP 118/75; PULSE 51; TEMP 36.5; O2SAT 96
[2017-12-23 08:30] LABS: CALCIUM 9.6 mg/dl (8.5-10.1); CREATININE 1.61 mg/dl (0.60-1.40)
[2017-12-23] MEDS: INSULIN ASPART 100 UNITS/ML 3 ML PEN SC SCH ×2 (08:44→12:23)
[2017-12-23] MEDS: TRIAMTERENE/HCTZ 37.5/25MG CAP PO SCH (08:45)
[2017-12-23] MEDS: OMEGA-3 (PURIFIED FISH OIL) 1 GM CAP PO SCH (08:45)
[2017-12-23] MEDS: ASPIRIN 81 MG ECTAB PO SCH (08:45)
[2017-12-23] MEDS: MULTIVITAMIN TAB PO SCH (08:46)
[2017-12-23] MEDS: METOPROLOL SUCC 50MG EXT REL TAB PO SCH (08:46)
[2017-12-23] MEDS: LISINOPRIL 20 MG TAB PO SCH (08:46)
[2017-12-23] MEDS: ISOSORBIDE MONONITRATE 60 MG TABCR PO SCH (08:47)
[2017-12-23] MEDS: HEPARIN SOD 5000 UNIT/0.5 ML CARP SQ SCH (08:49)
[2017-12-23] MEDS ORDERED: DOBUTamine HCL 12.5 MG/ML 20 ML VIAL ONE (09:37)
[2017-12-23] MEDS ORDERED: METOPROLOL TARTRATE 1 MG/ML VIAL ONE ×2 (09:37→09:38)
[2017-12-23] MEDS ORDERED: ATROPINE SULFATE 0.1 MG/ML 5ML SYR ONE ×2 (09:37→09:38)
[2017-12-23] MEDS ORDERED: COLESTIPOL HCL 1 GM TAB PO SCH (10:00)
[2017-12-23 11:13] VITALS: BP 99/58; PULSE 70; TEMP 36.6; O2SAT 94
--- NOTE | 2017-12-23 12:00 | DOBUTAMINE ECHO ---
*NOTICE TO RECEIVING REPUBLICAN AGENCY This information is strictly Confidential and protected under [place] law. [place] law prohibits you from making any further disclosure of this information unless further disclosure is expressly permitted by the written consent of the person to whom it pertains or is authorized by law. A general authorization for the release of medical or other information is not sufficient for this purpose. Hospital accepts no responsibility if the information is made available to any other person, INCLUDING THE PATIENT. Interpretation Summary * Name: LATANYA ASHLEY Study Date: 12/23/2017 08:55 AM BP: 156/83 mmHg * Patient Location: [facility]\S\N282\S\1 HR: 68 * : 1945 (M/d/yyyy) Gender: Male Height: 69 in * Age: 72 yrs Ethnicity: [place] Weight: 288 lb * Ordering Physician: Saran Martinez * Referring Physician: Self, Referred * Performed By: Jordan Carrillo RCS * * Reason For Study: CHEST PAIN * BSA: 2.4 m2 * -- Conclusions -- * The left ventricle is moderately dilated. * There are regional wall motion abnormalities as specified. * Left ventricular systolic function is mild to moderately reduced. * Right ventricular systolic pressure is elevated at 30-40mmHg. * Grade I diastolic dysfunction, (abnormal relaxation pattern). * Image quality was suboptimal for interpretation * No definite evidence of inducible ischemia at peak dobutamine infusion * Evidence of old infarct involving the septum apex and distal anterior wall Procedure Details * DOBUTAMINE ECHO, CPT#41591 Left Ventricular Findings with Stress * Image quality was suboptimal for interpretation No definite evidence of inducible ischemia at peak dobutamine infusion Evidence of old infarct involving the septum apex and distal anterior wall Left Ventricle * The left ventricle is moderately dilated. * There is normal left ventricular wall thickness. * Ejection Fraction = 40-45%. * Left ventricular systolic function is mild to moderately reduced. * There are regional wall motion abnormalities as specified. * At baseline there was global hypokinesis with akinesis of the septum, apex and distal portion of the anterior wall. Right Ventricle * The right ventricle is grossly normal size. * The right ventricular systolic function is normal as assessed by tricuspid annular plane systolic excursion (TAPSE) (normal >1.5 cm). Atria * The left atrial size is normal. * Right atrial size is normal. Mitral Valve * The mitral valve is grossly normal. * Significant mitral regurgitation is absent. Tricuspid Valve * The tricuspid valve is not well visualized, but is grossly normal. * There is mild tricuspid regurgitation. * Right ventricular systolic pressure is elevated at 30-40mmHg. Aortic Valve * The aortic valve is normal in structure and function. * The aortic valve is trileaflet. * No hemodynamically significant valvular aortic stenosis. * There is no significant aortic regurgitation. Pericardium * There is no pericardial effusion. Stress Parameters * Baseline EKG was sinus rhythm with evidence of old inferior and anterior infarcts * The significant ST or T-wave changes with dobutamine infusion * The stress portion of this study was personally supervised by the undersigned interpreting physician. * Rest heart rate was '68' BPM. * Rest blood pressure was '156/83' * Maximum heart rate achieved was 133 bpm. * Maximum heart rate was 90 % of maximum age-predicted heart rate. * Maximum blood pressure was '175/51' * Maximum Dobutamine infusion rate was '50' mcg/kg/min. * Dobutamine infusion was terminated due to achieving target heart rate * A total of 5 mg of IV Metoprolol was administered to reverse Dobutamine-induced tachycardia. * The patient did not exhibit any symptoms during drug infusion. * Normal blood pressure response to exercise. Left Ventricular Findings with Stress * There were baseline regional wall motion abnormalities with reduced LV systolic function At peak infusion there seem to be some improved augmentation of the inferior and posterior welch as well as basal segment of the anterior wall. No symptoms reported during the test There were no significant EKG changes during dobutamine infusion Left Ventricular Diastolic Function * Grade I diastolic dysfunction, (abnormal relaxation pattern). MMode 2D Measurements and Calculations IVSd 1.0 cm IVSs 1.2 cm LVIDd 6.3 cm LVIDs 4.1 cm LVPWd 1.0 cm LVPWs 1.2 cm IVS/LVPW 1.0 FS 35.2 % EDV(Teich) 199.8 ml ESV(Teich) 73.1 ml EF(Teich) 63.4 % EDV(cubed) 247.7 ml ESV(cubed) 67.5 ml EF(cubed) 72.7 % % IVS thick 18.7 % % LVPW thick 19.6 % LV mass(C)d 269.7 grams LV mass(C)dI 111.8 grams/m\S\2 LV mass(C)s 170.3 grams LV mass(C)sI 70.6 grams/m\S\2 SV(Teich) 126.7 ml SI(Teich) 52.5 ml/m\S\2 SV(cubed) 180.2 ml SI(cubed) 74.7 ml/m\S\2 Ao root diam 3.5 cm Ao root area 9.7 cm\S\2 ACS 1.8 cm LA dimension 3.8 cm asc Aorta Diam 3.4 cm LA/Ao 1.1 EDV(MOD-sp4) 133.7 ml ESV(MOD-sp4) 61.9 ml EF(MOD-sp4) 53.7 % EDV(MOD-sp2) 194.0 ml ESV(MOD-sp2) 104.6 ml EF(MOD-sp2) 46.1 % SV(MOD-sp4) 71.7 ml SI(MOD-sp4) 29.7 ml/m\S\2 SV(MOD-sp2) 89.4 ml SI(MOD-sp2) 37.1 ml/m\S\2 Doppler Measurements and Calculations MV E max bubba 90.5 cm/sec MV A max bubba 79.0 cm/sec MV E/A 1.1 MV P1/2t max ubbba 100.3 cm/sec MV P1/2t 78.1 msec MVA(P1/2t) 2.8 cm\S\2 MV dec slope 376.0 cm/sec\S\2 MV dec time 0.23 sec Ao V2 max 151.7 cm/sec Ao max PG 9.2 mmHg Ao max PG (full) 4.3 mmHg LV V1 max PG 4.9 mmHg LV V1 max 110.3 cm/sec PA V2 max 82.0 cm/sec PA max PG 2.7 mmHg TR max bubba 260.4 cm/sec
[2017-12-23] MEDS ORDERED: PERFLUTREN LIPID MICROSPHERE (DEFINITY) IV ONE (12:16)
[2017-12-23] MEDS ORDERED: NTRSLP4 SL (12:53)
[2017-12-23] MEDS ORDERED: GLYB2.5T7 PO (12:53)
[2017-12-23] MEDS ORDERED: FAMO20TA9 PO (12:56)
[2017-12-23] MEDS ORDERED: DICL1GEL12 TOP (12:56)
--- NOTE | 2017-12-23 12:57 | Discharge Instructions ---
Discharge Instructions Date of Service Dec 23, 2017. Admission Reason for Admission: Chest Pain Rule Out Acute Myocardial Infarction Discharge Discharge Diagnosis / Problem: Atypical chest pain Discharge Goals Goal(s): Decrease discomfort, Improve function, Increase independence, Improve disease control, Improve nutritional status, Learn about illness, Diagnostic testing, Therapeutic intervention, Prevent Disease Progression, Specific goals Activity Recommendations Activity Limitations: resume your previous activity . 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 twice daily, I also gave you Voltaren cream topical use as needed for possible musculoskeletal pain You have acute kidney injury, I hold metformin, I started glyburide for your diabetic, please follow-up with your primary care physician , you need to have labs kidney function repeated to make sure kidney function not getting worse in 1 week with your primary care physician - you need to follow up with your primary care physician in 1 week, - take medication as instructed, never overdose or any misuse, or take with alcohol, because misuse of medicine may cause organ damage or , call your primary care physician if have questions of medicaitons. - call your primary care physician OR go to local emergency room if has any fever/chill, chest pain, shortness of breathing, nausea/vomiting/abdominal pain , facial droop/slurry speech/local weakness, or if has any questions. - fall precaution - diet as instructed - you need to follow up with your subspecialist Current Hospital Diet Patient's current hospital diet: AHA Diet (Heart Healthy), Diabetes Type 2 Diet Discharge Diet Recommended Diet: Diabetes Type 2 Diet Pending Studies Studies pending at discharge: no Laboratory Results Hemoglobin A1c Test 12/21/17 08:29 Range/Units Estimated Average Glucose 143 mg/dl Hemoglobin A1c 6.6 H 4.5-5.6 % Lipid Panel Test 12/22/17 09:04 Range/Units Triglycerides Level 360 H 0-150 mg/dl Cholesterol Level 208 H 0-200 mg/dl HDL Cholesterol 44 mg/dl Cholesterol/HDL Ratio 4.7 LDL Cholesterol, Calculated 92 mg/dl Medical Emergencies . Who to Call and When: Medical Emergencies: If at any time you feel your situation is an emergency, please call 911 immediately. . Non-Emergent Contact Non-Emergency issues call your: Primary Care Provider, Lace Cutter . . "Provider Documentation" section prepared by Saran Martinez. .
[2017-12-23 14:06] VITALS: BP 99/58; PULSE 70; TEMP 36.6; O2SAT 94
--- NOTE | 2017-12-23 14:25 | Discharge Summary ---
Discharge Summary Date of Service Dec 23, 2017. Discharge Summary Admission Date: Dec 21, 2017 at 13:58 Discharge Date: Dec 23, 2017 Principal Diagnosis: atypical chest pain, so far has no evidence of acute heart attack Problems/Secondary Diagnoses: Acute kidney injury, diabetic, Immunizations: Have You Had Influenza Vaccine: Yes History of Tetanus Vaccine?: Yes History of Pneumococcal: Yes History of Hepatitis B Vaccine: No Consultations: No Medication Reconciliation New Medications: Diclofenac Sodium (Topical) (Voltaren 1% Top Gel) 1 % Gel 1 DOSE TOP DAILY PRN for Pain for 7 Days, #1 TUBE Famotidine (Pepcid) 20 Mg Tab 1 TAB PO BID for 30 Days, #60 TAB 5 Refills Nitroglycerin (Nitrostat) 0.4 Mg/1 Tab Subl 0.4 MG SL UD PRN for Chest Pain for 30 Days, #30 Continued Medications: Aspirin Enteric Coated (Ecotrin Or Generic *) 81 Mg Ectab 81 MG PO QAM Colestipol Hcl (Micronized Colestipol Hcl) 1 Gm Tab 2 TABLETS PO BID Fish Oil ([place]ster-3) 1 Ea Cap 1 CAP PO QAM Fluticasone Propionate (Flonase Nasal [place]) 120 Sprays/6000 Mcg Inha 2 SPRAYS SHASHI DAILY PRN for NASAL CONGESTION, BTL Isosorbide Mononitrate Ext Rel (Imdur Ext Rel) 60 Mg Ertab 60 MG PO QAM Lisinopril (Zestril) 20 Mg Tab 20 MG PO BID Metoprolol Succinate (Toprol Xl) 200 Mg Tab 200 MG PO QAM Multiple Vitamin (Multivitamin) 1 Tab Tab 1 TAB PO QAM Nitroglycerin (Nitrostat) 0.4 Mg Sub 0.4 MG UT PRN, BTL Triamterene/Hctz (Dyazide 37.5MG/25MG) Cap 2 TABS PO QAM Discontinued Medications: Metformin Hcl (Glucophage) 850 Mg Tab 850 MG PO BID, TAB Discharge Exam Review of Systems: Constitutional: No fever, No chills, No sweats, No weight loss, No weakness , No fatigue, No problem reported Eyes: No worsening of vision, No eye pain, No redness, No discharge, No diplopia, No problem reported ENT: No hearing loss, No unusual epistaxis, No nasal symptoms, No sore throat, No tinnitus, No dental problems, No trouble swallowing, No problem reported Respiratory: No cough, No sputum, No wheezing, No shortness of breath, No dyspnea on exertion, No dyspnea at rest, No hemoptysis, No problem reported Cardiovascular: No chest pain, No orthopnea, No PND, No edema, No claudication, No palpitations, No problem reported Abdomen: No pain, No nausea, No vomiting, No diarrhea, No constipation, No GI bleeding, No problem reported Musculoskeletal: + problem reported (Epigastric pain, producible,) Genitourinary - Male: No hematuria, No dysuria, No urinary frequency, No urinary urgency, No urinary hesitancy, No urinary retention, No urinary incontinence, No penile discharge, No lesions, No impotence, No problem reported Neurologic: No memory loss, No paralysis, No weakness, No numbness/tingling , No vertigo, No balance problems, No problem reported Psychiatric: No depression symptoms, No anhedonism, No anxiety, No insomnia , No substance abuse, No problem reported Endocrine: No fatigue, No excessive thirst, No excessive urination, No problem reported Hematologic / Lymphatic: No abnormal bleeding/bruising, No clotting problems , No swollen lymph nodes, No night sweats, No problem reported Integumentary: No rash, No itch, No new/changing skin lesions, No color change, No bleeding, No problem reported Physical Exam: General Appearance: WD/WN, no apparent distress ENT: normal ENT inspection, hearing grossly normal, TMs normal, pharynx normal Neck: supple, no adenopathy, thyroid normal Respiratory/Chest: chest non-tender, lungs clear, normal breath sounds Cardiovascular: regular rate, rhythm, no edema, no gallop, no JVD, no murmur Abdomen / GI: normal bowel sounds, non tender, soft, no organomegaly, no pulsatile mass, normal rectal exam Extremities: normal inspection, no calf tenderness, normal capillary refill , no pedal edema Neurologic/Psychiatric: credit intern II-XII nml as tested, no motor/sensory deficits , alert, normal mood/affect, normal reflexes, oriented x 3 Hospital Course 72 yo male with history of NM 10 years ago with one cardiac stent, h/o PE 5 years ago that was treated with Coumadin, presented with intermittent sharp substernal chest pain Chest pain: no evidence of ACS, troponin negative x 5, EKG without signs of ischemia, Mild epigastric area pain, come and goes, 2-3 out of 10, reproducible Has rule out ACS dobutamine stress test which was no ischemic event not a PE, CTA chest negative 10 years ago on cath he had disease in multiple vessels, just not severe, was warned that he may need CABG someday continue aspirin, Fish oil, Toprol, Imdur, Lisinopril Differential diagnosis for atypical epigastric pain include gastritis, gallbladder disease, or musculoskeletal pain, will give Pepcid to home, also Voltaren topical use as needed for the pain PCP please follow-up H/o PE: no PE on CTA chest was treated with Coumadin for a year, no longer on anticoagulation Accelerated hypertension; BP better controlled today, maintain home regimen Gout: impairs ability to perform exercise stress test Patient discharged home with stable condition Instructions / Follow-Up You have atypical chest pain, so far has no evidence of acute heart attack , dobutamine stress test is negative, 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 twice daily, I also gave you Voltaren cream topical use as needed for possible musculoskeletal pain You have acute kidney injury, I hold metformin, I started glyburide for your diabetic, please follow-up with your primary care physician , you need to have labs kidney function repeated to make sure kidney function not getting worse in 1 week with your primary care physician - you need to follow up with your primary care physician in 1 week, - take medication as instructed, never overdose or any misuse, or take with alcohol, because misuse of medicine may cause organ damage or , call your primary care physician if have questions of medicaitons. - call your primary care physician OR go to local emergency room if has any fever/chill, chest pain, shortness of breathing, nausea/vomiting/abdominal pain , facial droop/slurry speech/local weakness, or if has any questions. - fall precaution - diet as instructed - you need to follow up with your subspecialist Total Time Spent: Less than 30 minutes This includes examination of the patient, discharge planning, medication reconciliation, and communication with other providers. Discharge Instructions Please refer to the electronic Patient Visit Report (Discharge Instructions) for additional information.
--- NOTE | 2017-12-23 14:31 | CARDIOLOGY PROGRESS NOTE ---
DATE: 12/23/2017 HISTORY OF PRESENT ILLNESS: The patient was seen by me this morning. This was why he was undergoing his echocardiogram. He denies any of his recent sharp chest pain. He does complain of a dull constant aching sensation in his left chest. No relationship to activity. No increase in the intensity with exertion. He denies orthopnea, PND, palpitations, lightheadedness, syncope, or peripheral edema. No cerebrovascular complaints. No bleeding complaints. No fevers or chills. CURRENT MEDICATIONS: Colestipol 2 g p.o. b.i.d., aspirin 81 mg daily, omega 3 fish oil 1 g daily, isosorbide mononitrate 60 mg daily, metoprolol succinate ER 200 mg daily, multivitamin 1 daily, triamterene/HCTZ 2 capsules daily, subQ heparin 5000 units q. 12 hours, lisinopril 20 mg b.i.d., and several p.r.n. medications. ALLERGIES: STATINS. PHYSICAL EXAMINATION: GENERAL: Shows him to be in no distress. VITAL SIGNS: This morning with oral temperature 36.5, pulse 51, blood pressure 118/75, pulse oximetry on room air 96%. NECK: No jugular venous distention. LUNGS: Normal respiratory effort. Clear. No rales or wheezes. HEART: Regular rate and rhythm. S1, S2 normal. No S3 or S4. No murmur or rub. ABDOMEN: Soft. Nontender. No palpable masses or organomegaly. No bruits. EXTREMITIES: No pretibial edema. NEUROLOGIC: Alert and oriented x3. Motor grossly intact. PSYCHIATRIC: Affect is normal. DATA: Electrocardiogram reviewed by me from December 21 shows sinus rhythm with first degree AV block. Inferior MO and anterolateral MO. No acute ST or T-wave abnormalities. Resting echocardiogram today with global hypokinesis except for akinesis of the septum, apex, and distal anterior wall. Mild tricuspid regurgitation. The patient was given pharmacologic stress with intravenous dobutamine. Maximum heart rate attained was 133 beats per minute. This is 90% of the maximum predicted heart rate. He had no complaints during pharmacologic stress. The electrocardiogram following pharmacologic stress showed no diagnostic evidence of myocardial ischemia. There was augmentation of the wall motion in the LV segments which originally displayed hypokinesis. The patient has had 6 troponin I's less than 0.015. Metabolic profile today was sodium 137, potassium 4.0, chloride 103, carbon dioxide 29, BUN 26, creatinine 1.61, random glucose 130. Magnesium 1.9. ASSESSMENT: 1. Admission with prolonged chest discomfort. No clear association with activity such as walking. However, he said that the discomfort could be precipitated by movement of his upper body. Cardiac enzymes are negative for myocardial injury. Electrocardiogram without any diagnostic ischemic ST or T-wave abnormalities. 2. Maximum dobutamine stress echocardiogram today, negative for evidence of stress-induced myocardial ischemia by ECG and echo criteria. 3. Blood pressure under good control. 4. Mild to moderate resting left ventricular systolic dysfunction. 5. Chronic kidney disease. 6. Dyslipidemia. Intolerant of multiple statins. RECOMMENDATIONS: 1. No further cardiac workup at this time. 2. From a cardiac standpoint, discharge the patient home. 3. Continue cardiology followup with Dr. Ruddy Canchola. Continue to follow up with his primary care provider.
== END 2017-12-23 14:35 | disposition home or self-care (01) ==
LOC: EDBD 09:20 → C.EDB 09:21 → C.MED 13:58 → ENRESERV 14:11
PROVIDERS: ADMIT Hospitalist; ATTEND Hospitalist
DX: R07.89 Other chest pain (principal); N17.9 Acute kidney failure, unspecified; E78.5 Hyperlipidemia, unspecified; E11.9 Type 2 diabetes mellitus without complications; I13.0 Hypertensive heart and chronic kidney disease with heart failure and stage 1 through stage 4 chronic kidney disease, or unspecified chronic kidney disease; I50.9 Heart failure, unspecified; N18.9 Chronic kidney disease, unspecified; I25.10 Atherosclerotic heart disease of native coronary artery without angina pectoris; I25.5 Ischemic cardiomyopathy; H81.09 Meniere's disease, unspecified ear; I25.2 Old myocardial infarction; E66.9 Obesity, unspecified; Z68.41 Body mass index [BMI] 40.0-44.9, adult; Z79.82 Long term (current) use of aspirin; Z86.711 Personal history of pulmonary embolism; Z82.49 Family history of ischemic heart disease and other diseases of the circulatory system

== ENCOUNTER 2018-01-01 09:38 | Emergency (ER) | payer OTHER ==
[~2018-01-01] VITALS: Ht 175.3 cm; Wt 129.0 kg
[~2018-01-01 09:38] MED LIST changes: +DICL1GEL12 TOP; +FAMO20TA9 PO; -METF-383 PO; +NTRSLP4 SL
[2018-01-01 09:43] VITALS: TEMP 36.5; Ht 175.3 cm; Wt 129.0 kg
[2018-01-01 10:11] LABS: BASO % 0.2 %; BASO ABS # 0.02 K/uL (0-0.2); EOS % 0.3 %; EOS ABS # 0.04 K/uL (0-0.5); HEMATOCRIT 40.3 % (42-52); HEMOGLOBIN 13.5 g/dL (14.0-18.0); IG# 0.03 K/uL (0.00-0.02); LYMPH % 9.5 %; LYMPH ABS # 1.19 K/uL (1.2-3.4); MEAN CELL VOLUME 87.2 fL (80-100); MEAN CORPUSCULAR HEMOGLOBIN 29.2 pg (25-34); MEAN CORPUSCULAR HGB CONC 33.5 g/dl (32-36); MEAN PLATELET VOLUME 9.7 fL (7.4-10.4); MONO % 5.5 %; MONO ABS # 0.69 K/uL (0.11-0.59); NEUT % 84.3 %; NEUT ABS # 10.57 K/uL (1.4-6.5); PLATELET COUNT 232 K/uL (130-400); RED CELL DISTRIBUTION WIDTH SD 44.3 fL (36.4-46.3); WHITE BLOOD COUNT 12.54 K/uL (4.8-10.8)
[2018-01-01] MEDS ORDERED: OXYCODONE HCL IR 5 MG TAB (IMMEDIATE RELEASE) PO STA (10:12)
[2018-01-01] MEDS ORDERED: ALL100 PO (10:22)
[2018-01-01 10:27] LABS: ALBUMIN 3.6 gm/dl (3.4-5.0); CALCIUM 9.3 mg/dl (8.5-10.1); CREATININE 1.59 mg/dl (0.60-1.40); POTASSIUM 4.5 mmol/L (3.5-5.1)
[2018-01-01 10:30] LABS: TOTAL PROTEIN 7.3 gm/dl (6.4-8.2); URIC ACID 8.6 mg/dl (2.6-7.2)
[2018-01-01] MEDS ORDERED: FAMO20TA9 PO (10:37)
[2018-01-01] MEDS ORDERED: DICL1GEL34 TOP (10:37)
--- NOTE | 2018-01-01 11:03 | DIAGNOSTIC IMAGING REPORT ---
L FOOT MIN 3 VIEWS ROUTINE CLINICAL HISTORY: Left foot pain. Gout. COMPARISON: Left foot radiograph April 02, 2012. FINDINGS: Alignment of the left foot is anatomic. Tarsometatarsal joints are intact. Dorsal soft tissue swelling is noted. There is moderate plantar and posterior calcaneal spurring. A spur arising from the plantar aspect of the base of the distal phalanx of the left first toe is noted. There is moderate osteoarthritis of the left first metatarsophalangeal joint. There is a possible juxtacortical erosion within the distal aspect of the proximal phalanx of the left first toe. No gouty tophi are identified on this exam. IMPRESSION: 1. No acute fracture or dislocation within the left foot. 2. 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 3. Apparent juxtacortical erosion at the interphalangeal joint of the left great toe. This is nonspecific although can be seen in setting of gout. Electronically signed by: Choco Davidson M.D. 01/01/2018 11:02 AM Dictated Date/Time: 01/01/2018 10:57 AM
[2018-01-01 11:09] VITALS: BP 121/78; PULSE 81; O2SAT 97
[2018-01-01] MEDS ORDERED: PRED20TA PO (11:56)
[2018-01-01] MEDS ORDERED: OXYC1TAB3 PO (11:56)
[2018-01-01] MEDS ORDERED: DOXY100C76 PO (12:12)
--- NOTE | 2018-01-01 18:51 | EMERGENCY ROOM VISIT NOTE ---
History Report prepared by Kanu: Dave Rayo Under the Supervision of: Dr. Wai Serrano M.D. First contact with patient: 09:42 Chief Complaint: FOOT PAIN Stated Complaint: FOOT PAIN/GOUT History of Present Illness The patient is a 72 year old male who presents to the Emergency Room by EMS with complaints of constant left foot pain beginning two weeks ago. He has a history of gout, and states that his symptoms feel exactly like his previous gout. He rates his pain as a 2/10 in severity. The patient localizes his pain to the top of his left foot, and the joint connecting his big toe to his foot. His pain is worse with walking (increased to a 9/10 in severity). He reports eating pasta yesterday, but otherwise has been watching his diet. The patient was discharged from the hospital nine days ago, for which he was admitted for cardiac work-up. He seen by his PCP later that day, and was taken off of Naproxen. He was recently put on Allopurinol. The patient has a history of type 2 diabetes (on Metformin). Pt denies LOC, headache, fevers, chills, diaphoresis , visual changes, neck pain, new chest pain, breathing difficulties, calf swelling, nausea, vomiting, abdominal pain, back pain, melena, hematochezia, urinary symptoms, numbness, weakness, lymphadenopathy, rash, or other complaints. Source of History: patient Onset: Two weeks ago Position: foot (left) Symptom Intensity: currently 2/10, increases to 9/10 with walking Timing: constant Modifying Factors (Worsening): other (walking) Associated Symptoms: No chest pain (new) Note: Negative: calf swelling. Review of Systems See HPI for pertinent positives and negatives. A total of ten systems were reviewed and were otherwise negative. Past Medical & Surgical Medical Problems: (1) Ankle pain (2) chest pain rule out (3) Chest pain, rule out acute myocardial infarction (4) Diabetes (5) Gout of ankle (6) Heart disease (7) Hyperlipidemia Nec/Nos (8) Hypertension Nos (9) Leg edema, right (10) Personal History Of Pulmonary Embolism Family History Heart disease Social History Smoking Status: Never Smoker Alcohol Use: none Drug Use: none Marital Status: Housing Status: lives with family Occupation Status: retired Current/Historical Medications Scheduled Allopurinol (Allopurinol), 1 TAB PO QAM Aspirin Enteric Coated (Ecotrin Or Generic *), 81 MG PO QAM Colestipol Hcl (Micronized Colestipol Hcl), 2 TABLETS PO BID Doxycycline Monohydrate (Monodox), 100 MG PO BID Famotidine (Pepcid), 20 MG PO BID Fish Oil (Norcatur-3), 1 CAP PO QAM Isosorbide Mononitrate Ext Rel (Imdur Ext Rel), 60 MG PO QAM Lisinopril (Zestril), 20 MG PO BID Metoprolol Succinate (Toprol Xl), 200 MG PO QAM Multiple Vitamin (Multivitamin), 1 TAB PO QAM Nitroglycerin (Nitrostat), 0.4 MG UT PRN Prednisone (Prednisone), 40 MG PO DAILY Triamterene/Hctz (Dyazide 37.5MG/25MG), 2 TABS PO QAM Scheduled PRN Diclofenac Sodium (Topical) (Diclofenac Sodium), 1 DOSE TOP DAILY PRN for Pain Fluticasone Propionate (Flonase Nasal Webster), 2 SPRAYS SHASHI DAILY PRN for NASAL CONGESTION Oxycodone Ir (Roxicodone Ir), 1-2 TAB PO Q4H PRN for Pain Allergies Coded Allergies: Statins (Verified Adverse Reaction, Intermediate, MYALGIAS, 01/01/18) Physical Exam Vital Signs Date Time Temp Pulse Resp B/P (MAP) Pulse Ox O2 Delivery O2 Flow Rate FiO2 01/01/18 11:09 81 16 121/78 97 Room Air 01/01/18 09:43 36.5 88 16 161/90 94 Room Air Physical Exam GENERAL: Awake, alert, well-appearing, in no distress HENT: Normocephalic, atraumatic. Oropharynx unremarkable. EYES: Normal conjunctiva. Sclera non-icteric. NECK: Supple. No nuchal rigidity. FROM. No masses. RESPIRATORY: Clear to auscultation. No wheezes. No rales. Normal respiratory effort. CARDIAC: Normal rate. Normal rhythm. No murmurs. No rubs. Extremities warm and well perfused. Pulses equal. No JVD. GI: Soft, non-distended. No tenderness to palpation. No rebound or guarding. No masses. RECTAL: Deferred. MUSCULOSKELETAL: Atraumatic. Chest examination reveals no tenderness. The back is symmetrical on inspection without obvious abnormality. There is no CVA tenderness to palpation. No joint edema. LOWER EXTREMITIES: First MTP joint tenderness to the left foot. Tenderness to the medial and lateral left ankle joint. ROM is good, but pain elicited with ROM. No Achilles tenderness. 1+ lower extremity edema, slightly worse on the left. No calf tenderness. Negative Homans sign. NEURO: Normal sensorium. No sensory or motor deficits noted. SKIN: No rash or jaundice noted. Medical Decision & Procedures ER Provider Diagnostic Interpretation: Radiology results as stated below per my review and radiologist interpretation: L FOOT MIN 3 VIEWS ROUTINE FINDINGS: Alignment of the left foot is anatomic. Tarsometatarsal joints are intact. Dorsal soft tissue swelling is noted. There is moderate plantar and posterior calcaneal spurring. A spur arising from the plantar aspect of the base of the distal phalanx of the left first toe is noted. There is moderate osteoarthritis of the left first metatarsophalangeal joint. There is a possible juxtacortical erosion within the distal aspect of the proximal phalanx of the left first toe. No gouty tophi are identified on this exam. IMPRESSION: 1. No acute fracture or dislocation within the left foot. 2. 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 3. Apparent juxtacortical erosion at the interphalangeal joint of the left great toe. This is nonspecific although can be seen in setting of gout. Electronically signed by: Choco Davidson M.D. 01/01/2018 11:02 AM Laboratory Results 01/01/18 10:01 Red Blood Count 4.62, Mean Corpuscular Volume 87.2, Mean Corpuscular Hemoglobin 29.2, Mean Corpuscular Hemoglobin Concent 33.5, Mean Platelet Volume 9.7, Neutrophils (%) (Auto) 84.3, Lymphocytes (%) (Auto) 9.5, Monocytes (%) (Auto) 5.5, Eosinophils (%) (Auto) 0.3, Basophils (%) (Auto) 0.2, Neutrophils # (Auto) 10.57, Lymphocytes # (Auto) 1.19, Monocytes # (Auto) 0.69, Eosinophils # (Auto) 0.04, Basophils # (Auto) 0.02 01/01/18 10:01 Test 01/01/18 10:01 White Blood Count 12.54 K/uL (4.8-10.8) Red Blood Count 4.62 M/uL (4.7-6.1) Hemoglobin 13.5 g/dL (14.0-18.0) Hematocrit 40.3 % (42-52) Mean Corpuscular Volume 87.2 fL (80-100) Mean Corpuscular Hemoglobin 29.2 pg (25-34) Mean Corpuscular Hemoglobin Concent 33.5 g/dl (32-36) Platelet Count 232 K/uL (130-400) Mean Platelet Volume 9.7 fL (7.4-10.4) Neutrophils (%) (Auto) 84.3 % Lymphocytes (%) (Auto) 9.5 % Monocytes (%) (Auto) 5.5 % Eosinophils (%) (Auto) 0.3 % Basophils (%) (Auto) 0.2 % Neutrophils # (Auto) 10.57 K/uL (1.4-6.5) Lymphocytes # (Auto) 1.19 K/uL (1.2-3.4) Monocytes # (Auto) 0.69 K/uL (0.11-0.59) Eosinophils # (Auto) 0.04 K/uL (0-0.5) Basophils # (Auto) 0.02 K/uL (0-0.2) RDW Standard Deviation 44.3 fL (36.4-46.3) RDW Coefficient of Variation 14.0 % (11.5-14.5) Immature Granulocyte % (Auto) 0.2 % Immature Granulocyte # (Auto) 0.03 K/uL (0.00-0.02) Erythrocyte Sedimentation Rate 37 mm/hr (0-14) Anion Gap 7.0 mmol/L (3-11) Est Creatinine Clear Calc Drug Dose 55.0 ml/min Estimated GFR () 49.2 Estimated GFR (Non- 42.4 BUN/Creatinine Ratio 16.4 (10-20) Uric Acid 8.6 mg/dl (2.6-7.2) Calcium Level 9.3 mg/dl (8.5-10.1) Total Bilirubin 0.6 mg/dl (0.2-1) Direct Bilirubin 0.2 mg/dl (0-0.2) Aspartate Amino Transf (AST/SGOT) 22 U/L (15-37) Alanine Aminotransferase (ALT/SGPT) 31 U/L (12-78) Alkaline Phosphatase 98 U/L (45-117) C-Reactive Protein 3.05 mg/dl (0-0.29) Total Protein 7.3 gm/dl (6.4-8.2) Albumin 3.6 gm/dl (3.4-5.0) Lyme Disease IgG Antibody NEG (NEG) Laboratory results reviewed by me Medications Administered Medications (Trade) Dose Ordered Sig/John Route Start Time Stop Time Status Last Admin Dose Admin Prednisone (PredniSONE TAB) 60 mg NOW STAT PO 01/01/18 10:12 01/01/18 10:14 DC 01/01/18 10:33 60 MG Oxycodone HCl (Roxicodone Immediate Rel Tab) 5 mg NOW STAT PO 01/01/18 10:12 01/01/18 10:14 DC 01/01/18 10:32 5 MG ED Course 1004: The patient was evaluated in room B6. A complete history and physical exam was performed. 1012: Ordered Roxicodone Immediate Rel Tab 5 mg, Prednisone 60 mg PO. 1150: I reevaluated the patient. He is feeling better. Discussed results and discharge instructions: he verbalized understanding and agreement. He will follow up with his PCP in one week. The patient is ready for discharge. Medical Decision Prior records reviewed and summarized above. Triage Nursing notes reviewed and agree them. The patient's history was concerning for swelling and pain in the foot. Differential diagnosis: Etiologies such as gout, arthritis, cellulitis, DVT, joint effusion, infection, trauma, muscular, lymphedema, idiopathic, CHF, as well as others were entertained.. Physical examination: The physical examination revealed no signs of infection. Neurovascularly intact. Negative Homans sign. No calf tenderness. ER treatment provided: Oral prednisone Oral OxyIR On reassessment the patient felt better. Diagnostics interpreted by me: The labs revealed mild leukocytosis. Chemistry panel unremarkable. The patient has an elevated uric acid. Lyme IgM was positive. Western blot is pending. Imaging studies: X-ray as above Clinically the patient is doing well. He has history of gout and states this feels the same. He does have an elevated uric acid. I will put him on a very short course of prednisone. He was advised to monitor his carbohydrate intake and monitor his blood sugars. The patient will also be started on doxycycline. I will give him a seven-day prescription which should give him time to follow- up with his PCP and also have the Western blot resulted. If his Western blot is positive he will need an additional 14 days of antibiotics. The patient indicated his understanding. I gave my usual and customary discussion regarding this issue. By the evaluation outlined above emergent etiologies such as septic joint, trauma, infection, CHF, as well as others were deemed relatively unlikely. The patient was informed about the findings as listed above. All questions were answered and he was pleased with the treatment. Return instructions were outlined and the patient was discharged in stable condition. Outpatient prescription management: Prednisone OxyIR Doxycycline Referral: The patient was referred back to his primary care physician for follow-up for a recheck of the current condition. Medication Reconcilliation Current Medication List: was personally reviewed by me Blood Pressure Screening Patient's blood pressure: Normal blood pressure Blood pressure disposition: Did not require urgent referral Impression Primary Impression: Left foot pain Additional Impressions: Gout Lyme disease Scribe Attestation The scribe's documentation has been prepared under my direction and personally reviewed by me in its entirety. I confirm that the note above accurately reflects all work, treatment, procedures, and medical decision making performed by me. Departure Information Dispostion Home / Self-Care Prescriptions Doxycycline Monohydrate (Monodox) 100 Mg Cap 100 MG PO BID, #14 CAP Prov: Claudio Ureña MD 01/01/18 Prednisone (Prednisone) 20 Mg Tab 40 MG PO DAILY for 3 Days, #6 TAB Prov: Claudio Ureña MD 01/01/18 Oxycodone Ir (Roxicodone Ir) 5 Mg Tab 1-2 TAB PO Q4H Y for Pain, #12 TAB Prov: Claudio Ureña MD 01/01/18 Referrals Sohan Lawler M.D. (PCP) Forms HOME CARE DOCUMENTATION FORM, IMPORTANT VISIT INFORMATION Patient Instructions My [facility] Additional Instructions DO NOT drive, drink alcohol, operate machinery, or perform dangerous activities today. You were given medications in the ER that can affect your ability to safely function or operate a vehicle. Prednisone 40mg: Once daily until the prescription is finished. It is best to take this earlier in the day as some patients note occasional difficulty falling asleep when taken in the late evening. Doxycycline 100mg: Take one pill twice daily for seven days for your infection. Take with food, but avoid dairy. Avoid prolonged sun exposure since this medication makes you temporarily more susceptible to sunburns. All antibiotics can cause diarrhea. If this occurs and you feel worse or it does not resolve in 1-2 days follow up with your doctor or return to the Emergency Department as this could be signs of serious underlying problems. Any medication can cause an allergic reaction, stop the pills immediately and return to the ER for rash, hives, breathing difficulties, or swelling. Additional doxycycline may be necessary if the Lyme confirmation test comes back positive. This is important to discuss with Dr. Lawler on your follow- up. If it is positive on the confirmation you will need 3 weeks of antibiotics. Acetaminophen(Tylenol) may be used for fever or pain. Use 1000mg every six hours as needed. Avoid using more than 4000mg in a 24 hour period. This medication can be taken if you need to drive, work, or perform activities which may be dangerous when taking narcotic pain medication. Rest. Continue current medications. Return to the ER immediately for any numbness, tingling, severe pain, fever, redness of the joints, inability to walk, or as needed. Follow up with your primary care physician within 5-7 days for a recheck of your current condition. Problem Qualifiers
== END 2018-01-01 12:21 | disposition home or self-care (01) ==
LOC: EDBD 09:38 → C.EDB 09:39
DX: M10.9 Gout, unspecified (principal); A69.20 Lyme disease, unspecified; E11.9 Type 2 diabetes mellitus without complications; E78.5 Hyperlipidemia, unspecified; I10 Essential (primary) hypertension; Z86.711 Personal history of pulmonary embolism; Z79.82 Long term (current) use of aspirin; Z79.899 Other long term (current) drug therapy; Z88.8 Allergy status to other drugs, medicaments and biological substances

== ENCOUNTER 2020-03-07 12:25 | Inpatient (IN) ==
--- NOTE | 2020-03-07 12:47 | Emergency Department Note ---
History of Present Illness General Chief complaint: Shortness of Breath/Dyspnea Stated complaint: SOB on exertion Time Seen by Provider: 03/07/20 12:33 Source: patient Mode of arrival: EMS Limitations: no limitations History of Present Illness Provider complaint: Shortness of breath Onset (ago): week(s) 2 Location: chest Radiation: non-radiation Severity: moderate Pain Consistency: + intermittent Current Pain Intensity: 0 Exacerbated By: + other (Exertion) Associated symptoms: no chest pain, no cough, no diaphoresis, no fever/chills, no headaches, no malaise and no nausea/vomiting This is a 75-year-old male who presents with dyspnea on exertion for the past 2 weeks. He thought he likely had a heart problem or possibly COVID and did not seek medical help. He then thought today may be it is a clot in his lung and so he came here. He states that he had a clot in his lung 10 years ago. He is not sure how he got the clot and does not remember any provoking circumstances. He is no longer on any blood thinners. He states that his shortness of breath is intermittent. It is worse when he goes up the stairs or walks. It is not associated with any fever, cough or cold symptoms, loss of taste or smell, abdominal pain, diarrhea, chest discomfort or pain, leg swelling or pain or any known exposure to COVID-19. When questioned about the size of his legs he stated that they always look that way. Home Medications Home Medications Medication Instructions Recorded Confirmed Type allopurinol 300 mg tablet 300 mg PO DAILY tab 05/11/19 03/07/20 History aspirin 81 mg tablet 81 mg PO DAILY tab 05/11/19 03/07/20 History lisinopril 20 mg tablet 20 mg PO BID tab 05/11/19 03/07/20 History metformin 500 mg tablet 500 mg PO BID tab 05/11/19 03/07/20 History rjpwjzgm-bpk-mzvir acid 300 1 tab PO DAILY 05/11/19 03/07/20 History mcg-lycopene 600 mcg-lutein 300 mcg tablet nitroglycerin 0.4 mg sublingual 0.4 mg SL Q5M PRN #25 tab 05/11/19 03/07/20 History tablet vitamins A,C,C-auqc-kxfjlr 14,320 1 cap PO BID 05/11/19 03/07/20 History unit-226 mg-200 unit capsule omega 9-vsi-rtz-fish oil 1,000 mg 1 cap PO DAILY 05/20/19 03/07/20 History (120 mg-180 mg) capsule triamcinolone acetonide 0.1 % 1 appln TOP DAILY 05/20/19 03/07/20 History topical cream isosorbide mononitrate 60 mg 60 mg PO DAILY #90 tab 10/08/19 03/07/20 Rx tablet,extended release 24 hr colestipol 1 gram tablet 2 gm PO BID #360 tab 11/10/19 03/07/20 Rx triamterene 37.5 1 tab PO DAILY tab 01/05/20 03/07/20 History mg-hydrochlorothiazide 25 mg tablet metoprolol succinate 100 mg PO BID 03/07/20 03/07/20 History Allergies Allergy/AdvReac Type Severity Reaction Status Date / Time Ujejsfh-Egs-Qgk Reductase AdvReac Intermediate MYALGIAS Verified 03/07/20 12:58 Inhibitor Past Med/Surg History Medical History Arthritis of Back and Knees Bronchitis Hyperlipidemia Hypertension Past heart attack Surgical History History of prostate biopsy S/P coronary artery stent placement Family History Family/Other Prostate cancer Father Heart disease Mother Bone cancer Sister Colon cancer Social History Preferred Language: Palestinian Communication Ability: Effective marital status: Single current occupational status: retired Feels Safe at Home: Yes Smoking Status: Never smoker Hx Alcohol Use: No Diet Comment: Has special diet unsure what kind Review of Systems See HPI for pertinent positives & negatives. and A total of 10 systems reviewed and were otherwise negative Physical Exam Vital Signs Vital Signs - 24 hr 03/07/20 12:30 03/07/20 12:32 03/07/20 12:34 Temperature 37.4 C Temperature Source Oral Pulse Rate 87 88 87 Pulse Rate from SpO2 Sensor Respiratory Rate 20 20 20 Respiratory Effort / Characteristics Non-Labored Respiratory Depth Normal Blood Pressure 189/113 H 189/113 H Blood Pressure Mean 132 138 Blood Pressure Position Lying Pulse Oximetry 93 Oxygen Delivery Method Room Air Sepsis Recent Fever Within 48 Hours No Sepsis Action Taken by Nursing No Action Required 03/07/20 12:40 03/07/20 13:00 03/07/20 14:27 Temperature Temperature Source Pulse Rate 71 Pulse Rate from SpO2 Sensor 85 71 Respiratory Rate 18 20 Respiratory Effort / Characteristics Respiratory Depth Blood Pressure 125/75 Blood Pressure Mean 89 Blood Pressure Position Pulse Oximetry 91 91 Oxygen Delivery Method Room Air Sepsis Recent Fever Within 48 Hours Sepsis Action Taken by Nursing 03/07/20 14:30 03/07/20 14:31 03/07/20 15:00 Temperature Temperature Source Pulse Rate 71 70 71 Pulse Rate from SpO2 Sensor 70 70 71 Respiratory Rate 18 20 20 Respiratory Effort / Characteristics Respiratory Depth Blood Pressure 134/75 151/85 H Blood Pressure Mean 101 112 Blood Pressure Position Pulse Oximetry 90 90 90 Oxygen Delivery Method Sepsis Recent Fever Within 48 Hours Sepsis Action Taken by Nursing 03/07/20 15:01 03/07/20 15:30 03/07/20 15:31 Temperature Temperature Source Pulse Rate 77 71 69 Pulse Rate from SpO2 Sensor 77 70 69 Respiratory Rate 21 20 19 Respiratory Effort / Characteristics Respiratory Depth Blood Pressure 170/101 H Blood Pressure Mean 138 Blood Pressure Position Pulse Oximetry 89 L 91 91 Oxygen Delivery Method Sepsis Recent Fever Within 48 Hours Sepsis Action Taken by Nursing 03/07/20 16:00 Temperature Temperature Source Pulse Rate 76 Pulse Rate from SpO2 Sensor Respiratory Rate 18 Respiratory Effort / Characteristics Respiratory Depth Blood Pressure Blood Pressure Mean Blood Pressure Position Pulse Oximetry Oxygen Delivery Method Sepsis Recent Fever Within 48 Hours Sepsis Action Taken by Nursing Constitutional: Vital signs reviewed. Eyes: Pupils are equal round reactive to light. Conjunctiva are noninjected. ENT: Pharynx is clear without erythema or exudate. Mucous membranes are moist. Neck supple without meningeal signs. Respiratory: Clear to auscultation bilaterally. Breath sounds are equal bilaterally. Cardiovascular: Regular rate and rhythm. No rubs or gallops. GI: Soft, nondistended and nontender. Bowel sounds are present. Musculoskeletal: Bilateral lower extremity swelling. No pitting edema. No lower extremity tenderness. Integumentary: No cyanosis. or jaundice. Neurological: The patient is awake and alert. No focal deficits. Psychiatric: Normal affect. Not anxious appearing. Course Administered Medications Ioversol (Optiray 320 125ml) 118 ml IV ONCE PRN PRN Reason: Interaction Checking Stop: 03/11/20 13:38 Last Admin: 03/07/20 13:39 Dose: 118 ml Documented by: [id number] Discontinued Medications Furosemide (Lasix) 40 mg IV NOW STA Stop: 03/07/20 14:53 Last Admin: 03/07/20 15:28 Dose: 40 mg Documented by: [id number] Medical Decision Making Differential Diagnosis Pulmonary embolism, DVT, acute coronary syndrome, anemia, pneumonia Medical Records Attestation: I reviewed the patient's medical records. I did perform a limited focused review of portions of the patient's old chart on the electronic medical record. The patient has had no recent pertinent visits to this hospital. Home Medications Current Medication List: was personally reviewed by me Laboratory Data Attestation: I reviewed the patient's lab results. Result diagrams: 03/07/20 12:35 03/07/20 12:35 Lab Results 03/07/20 03/07/20 03/07/20 Range/Units 12:35 12:35 12:35 WBC 9.64 (4.8-10.8) K/uL RBC 4.47 L (4.7-6.1) M/uL Hgb 13.7 L (14.0-18.0) g/dL Hct 40.9 L (42-52) % MCV 91.5 (80-100) fL MCH 30.6 (25-34) pg MCHC 33.5 (32-36) g/dL RDW Std Deviation 52.3 H (36.4-46.3) fL RDW Coeff of Jeff 15.7 H (11.5-14.5) % Plt Count 199 (130-400) K/uL MPV 10.3 (7.4-10.4) fL Immature Gran % (Auto) 0.3 % Neut % (Auto) 80.3 % Lymph % (Auto) 10.6 % [place] % (Auto) 7.8 % Eos % (Auto) 0.8 % Baso % (Auto) 0.2 % Neut # (Auto) 7.74 H (1.4-6.5) K/uL Lymph # (Auto) 1.02 L (1.2-3.4) K/uL [place] # (Auto) 0.75 H (0.11-0.59) K/uL Eos # (Auto) 0.08 (0-0.5) K/uL Baso # (Auto) 0.02 (0-0.2) K/uL Immature Gran # (Auto) 0.03 H (0.00-0.02) K/uL PT 11.0 (9.0-12.0) Seconds INR 1.0 (0.9-1.1) APTT 29.1 (21.0-31.0) Seconds PTT Ratio 1.0 Sodium 141 (136-145) mmol/L Potassium 3.8 (3.5-5.1) mmol/L Chloride 108 H (98-107) mmol/L Carbon Dioxide 24 (21-32) mmol/L Anion Gap 9.0 (3-11) BUN 19 H (7-18) mg/dl Creatinine 1.15 (0.6-1.4) mg/dl Est Cr Clr Drug Dosing 74.8 ml/min Est GFR ( Amer) 71.2 Est GFR (Non-Af Amer) 61.5 BUN/Creatinine Ratio 16.5 (10-20) Glucose 128 H (70-99) mg/dl Calcium 9.2 (8.5-10.1) mg/dl Magnesium (1.8-2.4) mg/dl Total Bilirubin 0.9 (0.2-1) mg/dl AST 11 L (15-37) U/L ALT 17 (12-78) U/L Alkaline Phosphatase 95 (45-117) U/L Troponin I < 0.015 (0-0.045) ng/ml NT-Pro-B Natriuret Pep (0-1800) pg/ml Total Protein 7.2 (6.4-8.2) gm/dl Albumin 3.3 L (3.4-5.0) gm/dl Globulin 3.9 (2.5-4.0) gm/dl Albumin/Globulin Ratio 0.9 (0.9-2) /02/19 Range/Units 12:35 WBC (4.8-10.8) K/uL RBC (4.7-6.1) M/uL Hgb (14.0-18.0) g/dL Hct (42-52) % MCV (80-100) fL MCH (25-34) pg MCHC (32-36) g/dL RDW Std Deviation (36.4-46.3) fL RDW Coeff of Jeff (11.5-14.5) % Plt Count (130-400) K/uL MPV (7.4-10.4) fL Immature Gran % (Auto) % Neut % (Auto) % Lymph % (Auto) % [place] % (Auto) % Eos % (Auto) % Baso % (Auto) % Neut # (Auto) (1.4-6.5) K/uL Lymph # (Auto) (1.2-3.4) K/uL [place] # (Auto) (0.11-0.59) K/uL Eos # (Auto) (0-0.5) K/uL Baso # (Auto) (0-0.2) K/uL Immature Gran # (Auto) (0.00-0.02) K/uL PT (9.0-12.0) Seconds INR (0.9-1.1) APTT (21.0-31.0) Seconds PTT Ratio Sodium (136-145) mmol/L Potassium (3.5-5.1) mmol/L Chloride (98-107) mmol/L Carbon Dioxide (21-32) mmol/L Anion Gap (3-11) BUN (7-18) mg/dl Creatinine (0.6-1.4) mg/dl Est Cr Clr Drug Dosing ml/min Est GFR ( Amer) Est GFR (Non-Af Amer) BUN/Creatinine Ratio (10-20) Glucose (70-99) mg/dl Calcium (8.5-10.1) mg/dl Magnesium 1.8 (1.8-2.4) mg/dl Total Bilirubin (0.2-1) mg/dl AST (15-37) U/L ALT (12-78) U/L Alkaline Phosphatase (45-117) U/L Troponin I (0-0.045) ng/ml NT-Pro-B Natriuret Pep 1369 (0-1800) pg/ml Total Protein (6.4-8.2) gm/dl Albumin (3.4-5.0) gm/dl Globulin (2.5-4.0) gm/dl Albumin/Globulin Ratio (0.9-2) Imaging Data Radiologist's Impression: CT ANGIOGRAPHY OF THE CHEST, PULMONARY EMBOLUS PROTOCOL CLINICAL HISTORY: Dyspnea. COMPARISON STUDY: Chest CT December 21, 2017. TECHNIQUE: Following IV administration of 118 mL of Optiray-320, helical axial images of the chest were obtained utilizing the pulmonary embolus protocol. Maximal intensity projections and sagittal and coronal reformats were viewed on an independent 3D workstation. IV contrast was administered without complication. Automated exposure control was utilized for the study. A dose lowering technique was utilized adhering to the principles of ALARA. CT DOSE: 970.35 mGy.cm FINDINGS: No pulmonary emboli are identified although the segmental and subsegmental pulmonary arteries are suboptimally assessed given respiratory motion. Mild cardiomegaly is noted. There is no pericardial effusion. There is no pneumothorax. Small right and trace left pleural effusions are noted. Lungs are suboptimally assessed given respiratory motion. There is mild interlobular septal thickening. Mild groundglass opacities are noted. Central airways are patent. There is no lobar consolidation. Bony thorax is unremarkable. A few prominent mediastinal and right hilar lymph nodes are noted. IMPRESSION: 1. No pulmonary emboli identified although segmental and subsegmental pulmonary arteries suboptimally assessed given respiratory motion. 2. Findings suggestive of mild pulmonary edema. 2. Small right and trace left pleural effusions. ACT 112: Negative or not required by law. Electronically signed by: Choco Davidson M.D. 03/07/2020 1:58 PM ECG Data Attestation: I personally reviewed and interpreted this ECG as follows: Indication: + SOB/dyspnea Rate (beats per minute): 87 Rhythm: + normal sinus ECG Intervals/blocks: + First degree AV block ECG ST segments: no ST elevation ECG Findings: + Q waves (Anterior); no PVCs Comparison ECG Date: from (12/21/17) Change: no significant change Blood Pressure Blood Pressure Findings: Elevated blood pressure Blood Pressure Disposition: Referred to patients primary care provider MDM Narrative I did evaluate the patient as noted above. The patient is presenting with dyspnea on exertion. He states he is concerned about a blood clot in his lungs which she had approximately 10 years ago and was unprovoked. He is not on any blood thinners currently. IV access was established. I did place an order for continuous cardiac monitoring. The monitor showed normal sinus rhythm with a rate of 88. I did order and personally review the patient's 12-lead EKG as described above. He has no acute ischemic changes. He does have a first-degree AV block. I did order and review the patient's blood work as noted in the electronic medical record. CBC showed a mild anemia. Electrolytes showed a mild hyperchloremia but otherwise were normal. Troponin was negative. I did order a CT angiogram of the chest. I did review the images myself as well as the radiology report as described above. There is no evidence of pulmonary embolism. He does have pulmonary edema and bilateral effusions. I did discuss the test results with the patient. His O2 saturation was approximately 89% on room air. I did recommend hospitalization for further care and evaluation. He was given Lasix 40 mg IV. I did discuss case with the hospitalist and manager rn case. Impression & Plan Acute congestive heart failure, LOREDO (dyspnea on exertion), Bilateral pleural effusion Discharge Plan Visit Data *Final* Discharge Date/Time: 03/07/20 17:35 Chief Complaint: Shortness of Breath/Dyspnea Stated Complaint: SOB on exertion ED Provider: Galo Walls Discharge Problem: Acute congestive heart failure, LOREDO (dyspnea on exertion), Bilateral pleural effusion Patient Disposition: Admitted As Inpatient Discharge Instructions Interventions: ED Discharge Assessment Last Done: 03/07/20 17:35 Discharge Problem: Acute congestive heart failure Qualifiers: Heart failure type: unspecified Qualified Code(s): I50.9 - Heart failure, unspecified
[2020-03-07 12:52] LABS: Basophils # (auto) 0.02 K/uL (0-0.2); Basophils % (auto) 0.2 %; Eosinophils # (auto) 0.08 K/uL (0-0.5); Eosinophils % (auto) 0.8 %; Hematocrit (blood only) 40.9 % (42-52); Hemoglobin 13.7 g/dL (14.0-18.0); Immature Granulocytes # (auto) 0.03 K/uL (0.00-0.02); Immature Granulocytes % (auto) 0.3 %; Lymphocytes # (auto) 1.02 K/uL (1.2-3.4); Lymphocytes % (auto) 10.6 %; Mean Corpuscular Hemoglobin 30.6 pg (25-34); Mean Corpuscular Hgb Conc 33.5 g/dL (32-36); Mean Corpuscular Volume 91.5 fL (80-100); Mean Platelet Volume 10.3 fL (7.4-10.4); Monocytes # (auto) 0.75 K/uL (0.11-0.59); Monocytes % (auto) 7.8 %; Neutrophils # (auto) 7.74 K/uL (1.4-6.5); Neutrophils % (auto) 80.3 %; Platelet Count 199 K/uL (130-400); RDW Coefficient of Variation 15.7 % (11.5-14.5); RDW Standard Deviation 52.3 fL (36.4-46.3); Red Blood Count 4.47 M/uL (4.7-6.1); White Blood Count 9.64 K/uL (4.8-10.8)
[2020-03-07 13:08] LABS: Alanine Aminotransferase 17 U/L (12-78); Albumin Level 3.3 gm/dl (3.4-5.0); Aspartate Aminotransferase 11 U/L (15-37); BUN Creatinine Ratio 16.5 (10-20); Blood Urea Nitrogen 19 mg/dl (7-18); Calcium 9.2 mg/dl (8.5-10.1); Carbon Dioxide 24 mmol/L (21-32); Chloride 108 mmol/L (98-107); Creatinine Clr Calc Pharmacy 74.8 ml/min; Est GFR (African American) 71.2; Est GFR (Non-African American) 61.5; Glucose 128 mg/dl (70-99); Potassium 3.8 mmol/L (3.5-5.1); Sodium 141 mmol/L (136-145)
[2020-03-07 13:10] LABS: Partial Thromboplastin Time 29.1 Seconds (21.0-31.0)
[2020-03-07 13:12] LABS: Albumin Globulin Ratio 0.9 (0.9-2); Alkaline Phosphatase 95 U/L (45-117); Bilirubin,Total 0.9 mg/dl (0.2-1); Globulin 3.9 gm/dl (2.5-4.0); Total Protein 7.2 gm/dl (6.4-8.2); Troponin I < 0.015 ng/ml (0-0.045)
[2020-03-07] MEDS ORDERED: OPTIRAY 320 125ml IV PRN (13:39)
--- NOTE | 2020-03-07 13:59 | CT Scan Report ---
CT ANGIOGRAPHY OF THE CHEST, PULMONARY EMBOLUS PROTOCOL CLINICAL HISTORY: Dyspnea. COMPARISON STUDY: Chest CT December 21, 2017. TECHNIQUE: Following IV administration of 118 mL of Optiray-320, helical axial images of the chest we re obtained utilizing the pulmonary embolus protocol. Maximal intensity projections and sagittal and coronal reformats were viewed on an independent 3D workstation. IV contrast was administered withou t complication. Automated exposure control was utilized for the study. A dose lowering technique wa s utilized adhering to the principles of ALARA. CT DOSE: 970.35 mGy.cm FINDINGS: No pulmonary emboli are identified although the segmental and subsegmental pulmonary arter ies are suboptimally assessed given respiratory motion. Mild cardiomegaly is noted. There is no peric ardial effusion. There is no pneumothorax. Small right and trace left pleural effusions are noted. Marine ngs are suboptimally assessed given respiratory motion. There is mild interlobular septal thickening. Mild groundglass opacities are noted. Central airways are patent. There is no lobar consolidation. B dimitri thorax is unremarkable. A few prominent mediastinal and right hilar lymph nodes are noted. IMPRESSION: 1. No pulmonary emboli identified although segmental and subsegmental pulmonary arteries suboptimally assessed given respiratory motion. 2. Findings suggestive of mild pulmonary edema. 2. Small right and trace left pleural effusions. ACT 112: Negative or not required by law. Electronically signed by: Choco Davidson M.D. 03/07/2020 1:58 PM
[2020-03-07] MEDS ORDERED: FUROSEMIDE 40 MG/4 ML VIAL IV STA (14:52)
--- NOTE | 2020-03-07 16:17 | History & Physical Report ---
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 Will defer retrial to cardiology. LDL [12/18] 92, no need to repeat (3) Hypertension: Continue usual outpatient meds (Lisinopril, Metoprolol, ISMN, triamter heidi/HCTZ) with addition of lasix above (4) Diabetes: HbA1C with AM labs Hold metformin Insulin correction coverage only. Will add basal if requiring > 10 units/day of correction (5) Gout: Chronic. No acute flare. Continue allopurinol (6) Coronary artery disease: Conitinue ASA, metoprolol, lisinopril. Not on statin due to prior intolerance as above (7) DVT prophylaxis: Lovenox 40mg SQ Q12H, increased dose due to morbid obesity Admission and Anticipated Discharge Date Admission Date: 03/07/2020 History of Present Illness Chief Complaint: Shortness of breath on exertion Primary Care Provider: NO PCP Moisés Peterson is a 75-year-old male who presents to the ER with concern for pulmonary embolism due to ongoing shortness of breath on exertion for the past 2 weeks. He has a prior history of pulmonary embolism and although his symptoms have not been significantly worse today it did cross his mind that this might be the cause of his shortness of breath therefore decided to come to the ER as he had similar symptoms 10 years prior. He was also concerned about COVID-19 although reports no cough, fever, known COVID-19 exposure, loss or taste or smell. He has a known cardiac history with anterior [place] in 2006 with stent placed in mid LAD and follows outpatient with Dr Canchola. He denies any chest pain on exertion. No palpitations, claudication, presyncope or syncope. He does note associated paroxysmal nocturnal dyspnea and orthopnea over the same time period as his worsening shortness of breath on exertion. He has not noticed increased leg swelling and notes his right leg has always been bigger than his left leg since his prior DVT 10 years prior. In the ER he was given 40mg IV Lasix and is already responding with increased urination and improved shortness of breath. He is under urology for increased PSA but reports no change to his urine prior to Lasix being given. No nocturia, poor flow, increased frequency. Allergies Allergy/AdvReac Type Severity Reaction Status Date / Time Avcwkyu-Agf-Jhc Reductase AdvReac Intermediate MYALGIAS Verified 03/07/20 12:58 Inhibitor Home Medications Home Medications Medication Instructions Recorded Confirmed Type allopurinol 300 mg tablet 300 mg PO DAILY tab 05/11/19 03/07/20 History aspirin 81 mg tablet 81 mg PO DAILY tab 05/11/19 03/07/20 History lisinopril 20 mg tablet 20 mg PO BID tab 05/11/19 03/07/20 History metformin 500 mg tablet 500 mg PO BID tab 05/11/19 03/07/20 History tiwzcoin-pbf-enppn acid 300 1 tab PO DAILY 05/11/19 03/07/20 History mcg-lycopene 600 mcg-lutein 300 mcg tablet nitroglycerin 0.4 mg sublingual 0.4 mg SL Q5M PRN #25 tab 05/11/19 03/07/20 History tablet vitamins A,C,G-pfde-wchgox 14,320 1 cap PO BID 05/11/19 03/07/20 History unit-226 mg-200 unit capsule omega 7-rkn-iwn-fish oil 1,000 mg 1 cap PO DAILY 05/20/19 03/07/20 History (120 mg-180 mg) capsule triamcinolone acetonide 0.1 % 1 appln TOP DAILY 05/20/19 03/07/20 History topical cream isosorbide mononitrate 60 mg 60 mg PO DAILY #90 tab 10/08/19 03/07/20 Rx tablet,extended release 24 hr colestipol 1 gram tablet 2 gm PO BID #360 tab 11/10/19 03/07/20 Rx triamterene 37.5 1 tab PO DAILY tab 01/05/20 03/07/20 History mg-hydrochlorothiazide 25 mg tablet metoprolol succinate 100 mg PO BID 03/07/20 03/07/20 History Past Med/Surg History Medical History Arthritis of Back and Knees Bronchitis Hyperlipidemia Hypertension Past heart attack Surgical History History of prostate biopsy S/P coronary artery stent placement Family History Family/Other Prostate cancer Father Heart disease Mother Bone cancer Sister Colon cancer Social History Preferred Language: Estonian Communication Ability: Effective Postbed Stitcher Required: No Beliefs That Will Affect Care: None marital status: Single Current Living Situation: Alone current occupational status: retired Other Information That Helps Us Care for You: No Feels Safe at Home: Yes Safety Concerns: Feels Safe At This Time Smoking Status: Never smoker Hx Alcohol Use: Yes Alcohol type: wine Hx Substance Use: No Diet Comment: Has special diet unsure what kind Review of Systems Review of Systems: All systems reviewed & are unremarkable except as noted in HPI & below Physical Exam Constitutional: well developed and + morbidly obese; + not well nourished and no acute distress Eyes: PERRL, conjunctivae normal, anicteric sclerae ENMT: external ear and nose normal, oropharynx normal Neck: trachea midline, no thyromegaly Respiratory: normal respiratory effort; no respiratory distress Auscultation: + diminished lung sounds; no crackles, no rales and no wheezes Cardiovascular: Rate/Rhythm: regular rate and regular rhythm Heart Sounds: no murmur Vessels: + JVD Extremities: normal capillary refill and + pedal edema (3+ pitting to knees b/l, right calf > 2cm circumference left); no calf tenderness Gastrointestinal (Abdomen): normal bowel sounds, soft, nontender, no hepatosplenomegaly Musculoskeletal: no cyanosis or clubbing, extremities motor strength 5/5 Skin: no rashes, warm and dry Neurologic: moves all extremities and awake; no focal motor deficits and not confused Psychiatric: A+Ox3, euthymic affect Genitourinary: no CVA tenderness Lymphatic: no cervical or axillary lymphadenopathy Results & Data Results & Data ([facility]) Vital Signs (Past 12 Hours) Vital Signs Temp Pulse Resp BP Pulse Ox 03/07/20 15:31 69 19 91 03/07/20 15:30 71 20 170/101 H 91 03/07/20 15:01 77 21 89 L 03/07/20 15:00 71 20 151/85 H 90 03/07/20 14:31 70 20 90 03/07/20 14:30 71 18 134/75 90 03/07/20 14:27 71 20 125/75 91 03/07/20 13:00 18 91 03/07/20 12:34 87 20 03/07/20 12:32 37.4 C 88 20 189/113 H 93 03/07/20 12:30 87 20 189/[address] ANGIOGRAPHY OF THE CHEST, PULMONARY EMBOLUS PROTOCOL IMPRESSION: 1. No pulmonary emboli identified although segmental and subsegmental pulmonary arteries suboptimally assessed given respiratory motion. 2. Findings suggestive of mild pulmonary edema. 2. Small right and trace left pleural effusions. ECG Indication: SOB/dyspnea Rate (beats per minute): 87 Rhythm: normal sinus Findings: + other (left axis deviation, prior inferio/anterior q waves) and + 1st degree AV block; no acute ischemic change Comparison ECG Date: from (December 21, 2017) Change: the following changes noted Code Status & VTE Plan Code Status Full VTE Prophylaxis Plan VTE Prophylaxis will be ordered: Yes PG Care Time/CCT Total # of Minutes Spent Total Time Spent with Patient: Total time spent is greater than 50% in coordination of care (as documented) at patient's floor/unit and/or counseling patient: Coding Level of Care Code 84597 Initial Inpt Care Lvl 3 Diagnoses Acute congestive heart failure I50.9 Hyperlipidemia E78.5 Hypertension I10 Diabetes E11.9 Gout M10.9 Coronary artery disease I25.10 DVT prophylaxis Z29.9
[2020-03-07 17:04] LABS: Magnesium 1.8 mg/dl (1.8-2.4)
[2020-03-07] MEDS ORDERED: GLUCOSE 40% GEL 15 GM TUBE PO PRN (18:33)
[2020-03-07] MEDS ORDERED: ONDANSETRON INJ 2 MG/ML 2 ML VIAL IV PRN (18:33)
[2020-03-07] MEDS ORDERED: NITROGLYCERIN SL 0.4 MG/TAB TAB SL PRN ×2 (18:33)
[2020-03-07] MEDS ORDERED: GLUCOSE 10 TABS/TUBE PO PRN (18:33)
[2020-03-07] MEDS ORDERED: CARBOHYDRATES FOR HYPOGLYCEMIA PO PRN (18:33)
[2020-03-07] MEDS ORDERED: GLUCAGON FOR INJ 1 MG VIAL SQ PRN (18:33)
[2020-03-07] MEDS ORDERED: DEXTROSE 50% 50 ML SYRINGE IV PRN (18:33)
[2020-03-07] MEDS ORDERED: ALUMINUM/MAGNESIUM SUSP 30 ML UDC PO PRN (18:33)
[2020-03-07] MEDS ORDERED: MAGNESIUM HYDROXIDE SUSP 30 ML UDC PO PRN (18:33)
[2020-03-07] MEDS ORDERED: ACETAMINOPHEN 325 MG TAB PO PRN (18:33)
[2020-03-07] MEDS ORDERED: POLYETHYLENE (MIRALAX) 17 GM PACK PO PRN (18:33)
[2020-03-07 19:14] LABS: Appearance Urine Clear (Clear); Bilirubin Urine Negative (Negative); Blood Urine Negative (Negative); Color Urine Yellow; Glucose Urine UA Negative (Negative); Ketones Urine Negative (Negative); Leukocyte Esterase Urine Negative (Negative); Nitrite Urine Negative (Negative); Protein Urine Negative (Negative); Specific Gravity Urine 1.018 (1.000-1.030); Urobilinogen Urine Negative (Negative)
[2020-03-07] MEDS: INSULIN ASPART 100 UNITS/ML 3 ML PEN SC SCH ×2 (19:59→20:00)
[2020-03-07] MEDS: METOPROLOL SUCC 50MG EXT REL TAB PO SCH (20:01)
[2020-03-07] MEDS: lisinopriL 20 MG TAB PO SCH (20:02)
[2020-03-07] MEDS: COLESTIPOL HCL 1 GM TAB PO SCH (21:21)
[2020-03-07] MEDS ORDERED: ENOXAPARIN INJ 40 MG/0.4 ML SYR SQ ONE (23:00)
--- NOTE | 2020-03-08 06:28 | Electrocardiogram Report ---
Test Reason : Blood Pressure : / mmHG Vent. Rate : 087 BPM Atrial Rate : 087 BPM P-R Int : 216 ms QRS Dur : 102 ms QT Int : 376 ms P-R-T Axes : 000 -46 049 degrees QTc Int : 452 ms Sinus rhythm with 1st degree A-V block Left axis deviation Inferior infarct Anterior infarct Abnormal ECG When compared with ECG of 21-DEC-2017 09:22, No significant change was found Confirmed by Stuart Bentley ([id number]) on 03/08/2020 6:28:25 AM Referred By: REFERRED SELF Confirmed By:Stuart Bentley
[2020-03-08 06:49] LABS: Est GFR (African American) 71.2; Est GFR (Non-African American) 61.5; Potassium 3.3 mmol/L (3.5-5.1)
[2020-03-08 06:58] LABS: Estimated Average Glucose 137 mg/dl; Hemoglobin A1C 6.4 % (4.5-5.6)
[2020-03-08] MEDS ORDERED: POTASSIUM CHLORIDE 20 MEQ TABCR PO STA (08:05)
[2020-03-08] MEDS: ISOSORBIDE MONO EXTENDED REL 60 MG TABCR PO SCH (08:46)
[2020-03-08] MEDS: ASPIRIN 81 MG ECTAB PO SCH (08:46)
[2020-03-08] MEDS: lisinopriL 20 MG TAB PO SCH ×2 (08:47→20:19)
[2020-03-08] MEDS: allopurinoL 300 MG TAB PO SCH (08:47)
[2020-03-08] MEDS: MULTIVITAMIN TAB PO SCH (08:47)
[2020-03-08] MEDS: FUROSEMIDE 40 MG in SYRINGE 0 ML IV SCH (08:47)
[2020-03-08] MEDS: OMEGA-3 (PURIFIED FISH OIL) 1 GM CAP PO SCH (08:47)
[2020-03-08] MEDS: CLOTRIMAZOLE 1% CR 15 GM TUBE EXT SCH ×2 (08:47→20:19)
[2020-03-08] MEDS: ENOXAPARIN INJ 40 MG/0.4 ML SYR SQ SCH ×2 (08:47→20:18)
[2020-03-08] MEDS: METOPROLOL SUCC 50MG EXT REL TAB PO SCH ×2 (08:47→20:18)
[2020-03-08] MEDS: COLESTIPOL HCL 1 GM TAB PO SCH ×2 (08:48→20:18)
[2020-03-08] MEDS: INSULIN ASPART 100 UNITS/ML 3 ML PEN SC SCH ×4 (08:48→20:54)
[2020-03-08] MEDS ORDERED: TRIAMTERENE/HCTZ 37.5/25MG TAB PO SCH (09:00)
[2020-03-08] MEDS ORDERED: FUROSEMIDE 40 MG/4 ML VIAL IV SCH (09:00)
[2020-03-08] MEDS ORDERED: PERFLUTREN LIPID MICROSPHERE (DEFINITY) IV ONE (09:10)
--- NOTE | 2020-03-08 15:24 | Hospitalist Progress Note ---
Date of Service March 08, 2020 Assessment & Plan (1) Acute congestive heart failure: Lasix 40mg IV daily Spironolactone 25mg PO QAM Metoprolol XL 100mg BID, BP appears to be better controlled with some diuresis Lisinopril 20mg BID -> consider switching to Entresto given new diagnosis of heart failure, will defer to his non profit director TTE pending Daily weights - 3kg weight loss I&Os - -ve 1800ml since admission Fluid restrict 1500ml, heart healthy, low-sodium diet. Appreciate cardiology consult -agree patient should follow heart failure clinic on discharge. (2) Hyperlipidemia: Intolerant to statins as per prior cardiology consult. Will defer retrial to cardiology. LDL [12/18] 92, no need to repeat (3) Hypertension: Continue usual outpatient meds (Lisinopril, Metoprolol, ISMN) with addition of lasix above Switch HCTZ/triamterene for spironolactone 25mg PO daily (4) Diabetes: HbA1C with AM labs Hold metformin Insulin correction coverage only. Will add basal if requiring > 10 units/day of correction (5) Gout: Chronic. No acute flare. Continue allopurinol (6) Coronary artery disease: Conitinue ASA, metoprolol, lisinopril. Not on statin due to prior intolerance as above (7) Tinea corporis: Left abdominal wall and under left breast. Continue clotrimazole cream twice daily. Follow-up with primary care physician. (8) DVT prophylaxis: Lovenox 40mg SQ Q12H, increased dose due to morbid obesity Admission and Anticipated Discharge Date Admission Date: March 07, 2020 Subjective Producing a lot of urine from Lasix given. He reports ongoing shortness of breath on exertion especially without the oxygen. No chest pain, palpitations, claudication, paroxysmal nocturnal dyspnea. PND was intermittent prior to admission, he did not experience this last night. Orthopnea still present. Discussed diet at some length. Eating canned soup a few days per week and canned vegetables a few days a week. Does not weigh himself at home. He does note his triamterene/hydrochlorothiazide tablet was reduced in half around 6 to 8 months ago by his primary care doctor due to hypotension. Although his shortness of breath has been much more acute than this over the last month and especially the last 2 weeks Review of Systems Review of Systems: All systems reviewed & are unremarkable except as noted in HPI & below Physical Exam Constitutional: well developed and + morbidly obese; + not well nourished and no acute distress Eyes: PERRL, conjunctivae normal, anicteric sclerae ENMT: external ear and nose normal, oropharynx normal Neck: trachea midline, no thyromegaly Respiratory: normal respiratory effort; no respiratory distress Auscultation: + diminished lung sounds (improved bibasal air entry from admiss ion exam); no crackles, no rales and no wheezes Cardiovascular: Rate/Rhythm: regular rate and regular rhythm Heart Sounds: no murmur Vessels: + JVD Extremities: normal capillary refill and + pedal edema (3+ pitting to knees b/l, right calf > 2cm circumference left); no calf tenderness Gastrointestinal (Abdomen): normal bowel sounds, soft, nontender, no hepatosplenomegaly Musculoskeletal: no cyanosis or clubbing, extremities motor strength 5/5 Skin: no rashes, warm and dry Neurologic: moves all extremities and awake; not confused Psychiatric: A+Ox3, euthymic affect Results & Data Results & Data ([facility]) Vital Signs (Past 12 Hours) Vital Signs Temp Pulse Pulse Resp BP BP Pulse Ox 03/08/20 14:52 62 03/08/20 11:43 36.5 C 64 22 148/87 H 93 03/08/20 10:00 63 03/08/20 08:02 36.8 C 62 20 161/88 H 91 03/08/20 03:42 37.1 C 72 20 136/75 91 PG Care Time/CCT Total # of Minutes Spent Total Time Spent with Patient: Total time spent is greater than 50% in coordination of care (as documented) at patient's floor/unit and/or counseling patient: Coding Level of Care Code 12605 Subseq Hosp Care Lvl 3 Diagnoses Acute congestive heart failure I50.9 Heart failure type: unspecified Hyperlipidemia E78.5 Hypertension I10 Diabetes E11.9 Gout M10.9 Coronary artery disease I25.10 Tinea corporis B35.4 DVT prophylaxis Z29.9 (1) Acute congestive heart failure Heart failure type: unspecified Qualified Code(s): I50.9 - Heart failure, unspecified
--- NOTE | 2020-03-08 16:00 | XCELERA ---
[id number]
--- NOTE | 2020-03-08 16:17 | Cardiology Consultation ---
Date of Consultation March 08, 2020 Assessment & Plan (1) Acute diastolic CHF (congestive heart failure): (2) Coronary artery disease: (3) S/P coronary artery stent placement: (4) Hypertension: ASSESSMENT/PLAN: 1. Acute diastolic CHF: LV systolic function is only mildly reduced so overall, has relatively preserved EF. He does appear hypervolemic. We discussed importance of a low-sodium diet and daily weights. Continue diuresis. He appears to be diuresing well. Spironolactone was added today by the primary service after discussing as he also has hypokalemia. Heart failure program follow-up recommended. 2. CAD s/p PCI of mid LAD: No angina. Continue aspirin 81 mg daily. Intolerant to statin therapy. Continue metoprolol succinate 100 mg twice daily. Continue SOPHIE-inhibitor. 3. Ischemic cardiomyopathy: LV systolic function is only mildly reduced. Continue SOPHIE-inhibitor and beta-ruby. Plan as above. 4. Hypertension: Blood pressure reasonably controlled but was hypertensive initially. Blood pressure has improved with diuresis. 5. Dyslipidemia: Intolerant to statin therapy per records. This can be addressed by primary bonded strand operator. Could consider alternative to statin therapy given CAD. 6. Disposition: Cardiology will continue to follow. Patient care discussed with Dr. Hammond of the primary hospitalist service. Patient care also discussed with Lee Ann Kennedy of the Heart failure program who plans on meeting with him tomorrow. On discharge, he should follow up with heart failure program and his primary bonded strand operator, Dr. Canchola/Mr. Galeana. Thank you for allowing me to participate in the care of your patient. Please call for any other questions or concerns. Sincerely, Chino Bentley M.D. History of Present Illness Reason for Consultation: Heart Failure Requesting Physician: Dr. Hammond Attending Physician: Tony Hammond MD History of Present Illness Mr. Peterson is a pleasant 75-year-old gentleman with a history significant for CAD status post anterior HI in August of 2007, mid LAD PCI with 3.5 x 15 on 08/04/2007, ischemic cardiomyopathy, type 2 diabetes, hypertension, dyslipidemia intolerant to statin therapy, and pulmonary embolism. His primary bonded strand operator is Dr. Canchola and Mr. Galeana. He was admitted on 03/07/2020 with shortness of breath and diagnosed with heart failure, which is a new diagnosis for him. He has had occasional paroxysmal nocturnal dyspnea with breathing improving while sitting upright. He has had worsening dyspnea with exertion over the past few months and has been feeling weak and shaky in his legs. He has not noted any lower extremity swelling but has been told by providers here that he does have lower extremity edema. He denies syncope, near-syncope, chest pain, palpitations, or bleeding such as melena, hematochezia, or hematuria. He admits that he consumes canned soup a few days per week. He also consumes canned vegetables eventually. He denies adding salt to his food. He does not weigh himself as he does not have a scale at home. He admits that his dyspnea with exertion has progressed to the point that it would be difficult to walk even short distances such as 50 yd. While here, he has been administered intravenous furosemide and admits that he has urinated a significant amount compared to baseline. His breathing has significantly improved. Review of systems: As above. Review of systems otherwise negative/unrem arkable. Family history: Father at the age of 60 from HI. Mother had HI at the age of 64 but of cancer. Social history: Denies tobacco, alcohol, or drug abuse. He has not been . No children. Lives alone. He is unaccompanied. Allergies Allergy/AdvReac Type Severity Reaction Status Date / Time Cgtwbui-Eoz-Yvv Reductase AdvReac Intermediate MYALGIAS Verified 03/07/20 12:58 Inhibitor Home Medications Home Medications Medication Instructions Recorded Confirmed Type allopurinol 300 mg tablet 300 mg PO DAILY tab 05/11/19 03/07/20 History aspirin 81 mg tablet 81 mg PO DAILY tab 05/11/19 03/07/20 History lisinopril 20 mg tablet 20 mg PO BID tab 05/11/19 03/07/20 History metformin 500 mg tablet 500 mg PO BID tab 05/11/19 03/07/20 History blrvmocu-utu-wqwts acid 300 1 tab PO DAILY 05/11/19 03/07/20 History mcg-lycopene 600 mcg-lutein 300 mcg tablet nitroglycerin 0.4 mg sublingual 0.4 mg SL Q5M PRN #25 tab 05/11/19 03/07/20 History tablet vitamins A,C,Q-lnah-seameq 14,320 1 cap PO BID 05/11/19 03/07/20 History unit-226 mg-200 unit capsule omega 8-udu-hgn-fish oil 1,000 mg 1 cap PO DAILY 05/20/19 03/07/20 History (120 mg-180 mg) capsule triamcinolone acetonide 0.1 % 1 appln TOP DAILY 05/20/19 03/07/20 History topical cream isosorbide mononitrate 60 mg 60 mg PO DAILY #90 tab 10/08/19 03/07/20 Rx tablet,extended release 24 hr colestipol 1 gram tablet 2 gm PO BID #360 tab 11/10/19 03/07/20 Rx triamterene 37.5 1 tab PO DAILY tab 01/05/20 03/07/20 History mg-hydrochlorothiazide 25 mg tablet metoprolol succinate 100 mg PO BID 03/07/20 03/07/20 History Patient History Medical History Arthritis of Back and Knees Bronchitis Coronary artery disease DVT (deep venous thrombosis) Hyperlipidemia Hypertension Past heart attack Pulmonary embolism Type 2 diabetes mellitus Surgical History History of prostate biopsy S/P coronary artery stent placement Family History Family/Other Prostate cancer Father Heart disease Mother Bone cancer Sister Colon cancer Social History Preferred Language: Thai Communication Ability: Effective Lining Parts Sewer Required: No Beliefs That Will Affect Care: None marital status: Single Current Living Situation: Alone current occupational status: retired Other Information That Helps Us Care for You: No Feels Safe at Home: Yes Safety Concerns: Feels Safe At This Time Smoking Status: Never smoker Hx Alcohol Use: Yes Alcohol type: wine Hx Substance Use: No Diet Comment: Has special diet unsure what kind Physical Exam Physical Exam: Gen.: No acute distress. Alert and oriented. HEENT: Anicteric sclera. Neck: No JVD appreciated while sitting upright. Hepatic jugular reflux noted. No bruits. Normal carotid upstrokes bilaterally. Cardiac: PMI was nonpalpable. No ventricular heave. Regular. Normal S1-S2. No murmurs, rubs, or gallops. Pulmonary: Clear to auscultation bilaterally without wheezes, rales, or rhonchi. Abdomen: Soft, nontender, nondistended, with normoactive bowel sounds. No bruits noted. Extremities: 2+ radial pulses bilaterally. 2+ posterior tibialis pulses bila terally. 2+ bilateral lower extremity pitting edema, and to just below the knees. Non cyanosis. Psychiatric: Affect appears appropriate. Results & Data ([facility]) Vital Signs (Past 12 Hours) Vital Signs Temp Pulse Pulse Resp BP BP Pulse Ox 03/08/20 14:52 62 03/08/20 11:43 36.5 C 64 22 148/87 H 93 03/08/20 10:00 63 03/08/20 08:02 36.8 C 62 20 161/88 H 91 Intake & Output 03/06/20 03/07/20 03/08/20 03/09/20 06:59 06:59 06:59 06:59 Intake Total 350 / 350 780 / 780 Output Total 2150 / 2150 1700 / 1700 Balance -1800 / -1800 -920 / -920 Weight 130.1 kg Laboratory Results Laboratory Results - last 24 hr 03/07/20 03/07/20 03/07/20 12:35 18:37 19:00 Sodium Potassium Chloride Carbon Dioxide Anion Gap BUN Creatinine Est Cr Clr Drug Dosing Est GFR ( Amer) Est GFR (Non-Af Amer) BUN/Creatinine Ratio Glucose POC Glucose 122 H Estimat Average Glucose Hemoglobin A1c Calcium Magnesium 1.8 NT-Pro-B Natriuret Pep 1369 Urine Color Yellow Urine Appearance Clear Urine pH 5.0 Ur Specific [place] 1.018 Urine Protein Negative Urine Glucose (UA) Negative Urine Ketones Negative Urine Blood Negative Urine Nitrite Negative Urine Bilirubin Negative Urine Urobilinogen Negative Ur Leukocyte Esterase Negative 03/08/20 03/08/20 03/08/20 05:53 05:53 07:45 Sodium 142 Potassium 3.3 L Chloride 107 Carbon Dioxide 25 Anion Gap 10.0 BUN 20 H Creatinine 1.15 Est Cr Clr Drug Dosing 73.0 Est GFR ( Amer) 71.2 Est GFR (Non-Af Amer) 61.5 BUN/Creatinine Ratio 17.0 Glucose 120 H POC Glucose 126 H Estimat Average Glucose 137 Hemoglobin A1c 6.4 H Calcium 9.0 Magnesium NT-Pro-B Natriuret Pep 1537 Urine Color Urine Appearance Urine pH Ur Specific [place] Urine Protein Urine Glucose (UA) Urine Ketones Urine Blood Urine Nitrite Urine Bilirubin Urine Urobilinogen Ur Leukocyte Esterase 03/08/20 11:41 Sodium Potassium Chloride Carbon Dioxide Anion Gap BUN Creatinine Est Cr Clr Drug Dosing Est GFR ( Amer) Est GFR (Non-Af Amer) BUN/Creatinine Ratio Glucose POC Glucose 123 H Estimat Average Glucose Hemoglobin A1c Calcium Magnesium NT-Pro-B Natriuret Pep Urine Color Urine Appearance Urine pH Ur Specific [place] Urine Protein Urine Glucose (UA) Urine Ketones Urine Blood Urine Nitrite Urine Bilirubin Urine Urobilinogen Ur Leukocyte Esterase Diagnostic Findings Telemetry personally reviewed: Sinus rhythm with frequent PVCs. 4-5 beat of wide complex tachycardia. ECG personally reviewed: ECG 03/07/2020: Sinus rhythm with first-degree AV block. Inferior infarct. Anterior infarct. CTA chest 03/07/2020: No PE. Suggestion of pulmonary edema per Radiology. Small right pleural effusion. ECHO personally reviewed from 03/08/2020: 1. Normal left ventricular size with mildly reduced systolic function. EF 45- 50%. Hypokinesis of the inferior wall, basal inferoseptum, distal anterior, and basal anteroseptal wall segments. Akinesis of the mid anteroseptum and mid to distal inferoseptum. [place] is hypokinetic to akinetic. No left ventricular hypertrophy. 2. Mild right ventricular dilation with normal systolic function. 3. Mild biatrial dilation. 4. Mild mitral regurgitation. 5. Technically difficult study, enhanced with IV Definity. 6. Compared to prior study on 12/23/2017, no significant change. Medications Administered Current Inpatient Medications Acetaminophen (Tylenol) 650 mg PO Q4H PRN PRN Reason: Pain or Fever Stop: 04/06/20 18:32 Al Hydrox/Mg Hydrox/Simethicone (Maalox) 15 ml PO Q4H PRN PRN Reason: Dyspepsia Stop: 04/06/20 18:32 Allopurinol (Zyloprim) 300 mg PO DAILY [facility] Stop: 04/07/20 08:59 Last Admin: 03/08/20 08:47 Dose: 300 mg Documented by: Aspirin (Ecotrin Ectab) 81 mg PO DAILY [facility] Stop: 08/06/20 08:59 Last Admin: 03/08/20 08:46 Dose: 81 mg Documented by: Clotrimazole (Lotrimin 1%) 1 appln EXT BID [facility] Stop: 04/07/20 08:59 Last Admin: 03/08/20 08:47 Dose: 1 appln Documented by: Colestipol HCl (Colestid) 2 gm PO BID@1000,2200 [facility] Stop: 04/06/20 21:59 Last Admin: 03/08/20 08:48 Dose: 2 gm Documented by: Dextrose (Dextrose 50%) 25 - 50 ml IV UD PRN; Protocol PRN Reason: Hypoglycemia Protocol Stop: 04/06/20 18:32 Enoxaparin Sodium (Lovenox) 40 mg SQ Q12 [facility] Stop: 04/07/20 08:59 Last Admin: 03/08/20 08:47 Dose: 40 mg Documented by: Fish Oil ([place]-3 (Purified Fish Oil)) 1 gm PO DAILY [facility] Stop: 04/07/20 08:59 Last Admin: 03/08/20 08:47 Dose: 1 gm Documented by: Glucagon (Glucagen) 1 mg SQ UD PRN; Protocol PRN Reason: Hypoglycemia Protocol Stop: 04/06/20 18:32 Glucose (Dex4 Glucose) 4 - 8 tabs PO UD PRN; Protocol PRN Reason: Hypoglycemia Protocol Stop: 04/06/20 18:32 Glucose (Glucose 40%) 15 - 30 gm PO UD PRN; Protocol PRN Reason: Hypoglycemia Protocol Stop: 04/06/20 18:32 Furosemide 40 mg/ Syringe 4 mls @ 4 mls/min IV DAILY [facility] Stop: 04/07/20 08:59 Last Admin: 03/08/20 08:47 Dose: 4 mls/min Documented by: Insulin Aspart (Novolog Flexpen) 0 units SC ACHS [facility] Stop: 04/06/20 18:32 Last Admin: 03/08/20 12:00 Dose: Not Given Documented by: Isosorbide Mononitrate (Imdur Extended Rel) 60 mg PO DAILY [facility] Stop: 04/07/20 08:59 Last Admin: 03/08/20 08:46 Dose: 60 mg Documented by: Lisinopril (Zestril) 20 mg PO BID [facility] Stop: 04/06/20 20:59 Last Admin: 03/08/20 08:47 Dose: 20 mg Documented by: Magnesium Hydroxide (Milk Of Magnesia) 30 ml PO Q12H PRN PRN Reason: Constipation Stop: 04/06/20 18:32 Metoprolol Succinate (Toprol Xl) 100 mg PO BID [facility] Stop: 04/06/20 20:59 Last Admin: 03/08/20 08:47 Dose: 100 mg Documented by: Miscellaneous (Carbohydrates For Hypoglycemia) 15 - 30 gm PO UD PRN PRN Reason: Hypoglycemia Protocol Stop: 04/06/20 18:32 Multivitamins (Multivitamin Tab) 1 tab PO DAILY [facility] Stop: 04/07/20 08:59 Last Admin: 03/08/20 08:47 Dose: 1 tab Documented by: Multivitamins/Minerals (Multivitamin W/ Minerals Tab) 1 tab PO DAILY [facility]; P rotocol Stop: 04/08/20 08:59 Nitroglycerin (Nitrostat) 0.4 mg SL UD PRN PRN Reason: Chest Pain Stop: 04/06/20 18:32 Ondansetron HCl (Zofran) 4 mg IV Q6H PRN PRN Reason: Nausea Stop: 04/06/20 18:32 Polyethylene Glycol (Miralax Powder Packet) 17 gm PO DAILY PRN PRN Reason: Constipation Stop: 04/06/20 18:32 Spironolactone (Aldactone) 25 mg PO QAM [facility] Stop: 04/08/20 08:59 PG Care Time/CCT Total # of Minutes Spent Total Time Spent with Patient: Total time spent is greater than 50% in neonatal icu coordinator rdination of care (as documented) at patient's floor/unit and/or counseling patient: Coding Level of Care Code 36173 Initial Inpt Care Lvl 3 Diagnoses Acute diastolic CHF (congestive heart failure) I50.31 Coronary artery disease I25.10 S/P coronary artery stent placement Z95.5 Hypertension I10
[2020-03-08] MEDS ORDERED: ENOXAPARIN INJ 40 MG/0.4 ML SYR SQ SCH (21:00)
[2020-03-09 07:15] LABS: BUN Creatinine Ratio 19.9 (10-20); Calcium 9.1 mg/dl (8.5-10.1); Creatinine Clr Calc Pharmacy 64.1 ml/min; Est GFR (African American) 61.4; Potassium 3.5 mmol/L (3.5-5.1)
--- NOTE | 2020-03-09 08:24 | Hospitalist Progress Note ---
Date of Service March 09, 2020 Assessment & Plan (1) Acute congestive heart failure: HFpEF patient's had a mild increase in BUN and creatinine with diuresis will continue with scheduled diuresis as listed below and continue to watch his renal function but he has dry weight and then eventually discharged to heart failure clinic Lasix 40mg IV daily Spironolactone 25mg PO QAM Metoprolol XL 100mg BID, BP appears to be better controlled with some diuresis Lisinopril 20mg BID -> consider switching to Entresto given new diagnosis of heart failure, will defer to his cook starch Echo mildly reduced EF 45-50% some RWMA Fluid restrict 1500ml, heart healthy, low-sodium diet. Cardiology consult HFpEF, started on sprionolactone and recommend heart failure clinic follow up (2) Hyperlipidemia: Intolerant to statins as per prior cardiology consult. . LDL [12/18] 92, no need to repeat (3) Hypertension: Continue usual outpatient meds (Lisinopril, Metoprolol, ISMN) with addition of lasix above Switch HCTZ/triamterene for spironolactone 25mg PO daily (4) Diabetes: HbA1C with AM labs Hold metformin Insulin correction coverage only. Will add basal if requiring > 10 units/day of correction (5) Gout: Chronic. No acute flare. Continue allopurinol (6) Coronary artery disease: Conitinue ASA, metoprolol, lisinopril. Not on statin due to prior intolerance as above (7) Tinea corporis: Left abdominal wall and under left breast. Continue clotrimazole cream twice daily. Follow-up with primary care physician. (8) DVT prophylaxis: Lovenox 40mg SQ Q12H, increased dose due to morbid obesity Admission and Anticipated Discharge Date Admission Date: March 07, 2020 Subjective Patient states he feels much better with increased exercise stamina and decreased dyspnea on exertion. He still has fairly significant swelling to his legs. Vital signs documented weight reduction with diuresis institution. Currently being about 3 L negative with diuresis. He has had a modest increase in BUN and creatinine but not worrisome so we will continue diuresis as written with along with the fluid restriction and salt restriction. Patient's education with regard to his diet and he will be enrolled with a heart failure clinic for follow-up Review of Systems Review of Systems: Mild distress and fatigue especially with exercise no headache, blurry or double vision no speech or swallowing issues no chest pain, pressure or palpitations Dyspnea on exertion but less so at rest no abdominal pain, nausea or vomiting, diarrhea or constipation no dysuria, hematuria or frequency no focal joint pain has persistent bilateral lower extremity swelling no back pain, CVA tenderness or radicular pain no bruising, bleeding or rashes no focal signs of weakness or numbness or altered sensation no complaints or anxiety or depression. Physical Exam Physical Exam: The patient appeared well nourished and normally developed. Vital signs as documented. Head exam is normocephalic atraumatic no scleral icterus Neck is with mild JVD, thyromegaly, or carotid bruits. Lungs are clear to auscultation, this patient gets tachypneic with exertion Cardiac exam, Rhythm is regular.. No murmurs, rubs or gallops. Abdominal exam reveals normal bowel sounds, soft non tender, no masses Extremities are bilaterally moderately edematous and both pedal pulses are normal. Neurologic exam is alert and oriented, no focal loss of strength or sensation Skin is without bruises or rashes Psychologically is without concerns for anxiety or depression Results & Data Results & Data ([facility]) Vital Signs (Past 12 Hours) Vital Signs Temp Pulse Pulse Resp BP BP Pulse Ox 03/09/20 08:00 97.5 F L 61 18 120/72 95 03/09/20 07:41 55 L 03/09/20 02:45 97.7 F 64 18 121/70 93 03/08/20 23:26 97.9 F 65 20 120/72 91 PG Care Time/CCT Total # of Minutes Spent Total Time Spent with Patient: Total time spent is greater than 50% in coordination of care (as documented) at patient's floor/unit and/or counseling patient: Coding Level of Care Code 59853 Subseq Hosp Care Lvl 3 Diagnoses Acute congestive heart failure I50.9 Heart failure type: unspecified Hyperlipidemia E78.5 Hypertension I10 Diabetes E11.9 Gout M10.9 Coronary artery disease I25.10 Tinea corporis B35.4 DVT prophylaxis Z29.9 (1) Acute congestive heart failure Heart failure type: unspecified Qualified Code(s): I50.9 - Heart failure, unspecified
[2020-03-09] MEDS: OMEGA-3 (PURIFIED FISH OIL) 1 GM CAP PO SCH (08:47)
[2020-03-09] MEDS: ISOSORBIDE MONO EXTENDED REL 60 MG TABCR PO SCH (08:47)
[2020-03-09] MEDS: METOPROLOL SUCC 50MG EXT REL TAB PO SCH ×2 (08:47→21:12)
[2020-03-09] MEDS: ENOXAPARIN INJ 40 MG/0.4 ML SYR SQ SCH ×2 (08:47→21:11)
[2020-03-09] MEDS: SPIRONOLACTONE 25 MG TAB PO SCH (08:47)
[2020-03-09] MEDS: CEROVITE ADV FORMULA TAB PO SCH (08:47)
[2020-03-09] MEDS: FUROSEMIDE 40 MG in SYRINGE 0 ML IV SCH (08:47)
[2020-03-09] MEDS: MULTIVITAMIN TAB PO SCH (08:47)
[2020-03-09] MEDS: ASPIRIN 81 MG ECTAB PO SCH (08:47)
[2020-03-09] MEDS: lisinopriL 20 MG TAB PO SCH ×2 (08:47→21:12)
[2020-03-09] MEDS: COLESTIPOL HCL 1 GM TAB PO SCH ×2 (08:47→22:10)
[2020-03-09] MEDS: CLOTRIMAZOLE 1% CR 15 GM TUBE EXT SCH ×2 (08:47→21:11)
[2020-03-09] MEDS: allopurinoL 300 MG TAB PO SCH (08:48)
[2020-03-09] MEDS: INSULIN ASPART 100 UNITS/ML 3 ML PEN SC SCH ×4 (08:48→21:11)
--- NOTE | 2020-03-09 16:53 | Heart Failure Progress Note ---
Date of Service March 09, 2020 Assessment & Plan (1) Acute diastolic CHF (congestive heart failure): Mr. Peterson is a pleasant 75-year-old gentleman with a history significant for CAD status post anterior [place] in August of 2007, mid LAD PCI with 3.5 x 15 on 08/04/2007, ischemic cardiomyopathy, type 2 diabetes, hypertension, dyslipidemia intolerant to statin therapy, and pulmonary embolism. He is newly diagnosed with acute diastolic heart failure. His primary circulating process inspector is Dr. Canchola. He sees Charlie Galeana regularly. He was admitted on 03/07/2020 with shortness of breath and diagnosed with heart failure. Full cardiology consult was completed yesterday by Dr. Bentley. Patient is responding well to current diuretic therapy. He is net negative 4 L thus far. Weight is trending down. His symptoms are improving but not yet at baseline. Met with patient today to discuss the heart failure program. Patient is receptive and is agreeable to participation. Will continue to follow during hospitalization. Will begin to facilitate discharge planning process. Results & Data Vital Signs (Past 12 Hours) Vital Signs Temp Pulse Pulse Resp BP BP Pulse Ox 03/09/20 16:12 71 03/09/20 15:55 97.9 F 64 21 137/78 94 03/09/20 11:23 97.5 F L 64 18 121/73 93 03/09/20 08:00 97.5 F L 61 18 120/72 95 03/09/20 07:41 55 L PG Care Time/CCT Total # of Minutes Spent Total Time Spent with Patient: Total time spent is greater than 50% in coordination of care (as documented) at patient's floor/unit and/or counseling patient: Coding Level of Care Code None Diagnoses Acute diastolic CHF (congestive heart failure) I50.31
--- NOTE | 2020-03-09 17:29 | Cardiology Progress Note ---
Date of Service March 09, 2020 Assessment & Plan (1) Acute diastolic CHF (congestive heart failure): (2) Coronary artery disease: (3) S/P coronary artery stent placement: (4) Hypertension: ASSESSMENT/PLAN: 1. Acute diastolic CHF: LV systolic function is only mildly reduced so overall, he has relatively preserved EF. Volume status is improving. Continue Lasix 40 mg IV daily with spironolactone 25 mg daily. We discussed importance of a low- sodium diet and daily weights. He has now ruled in the Heart failure program and is excited to attend. 2. CAD s/p PCI of mid LAD: No angina. Continue aspirin 81 mg daily. Intolerant to statin therapy. Continue metoprolol succinate 100 mg twice daily. Continue SOPHIE-inhibitor. 3. Ischemic cardiomyopathy: LV systolic function is only mildly reduced. Continue SOPHIE-inhibitor and beta-ruby. Plan as above. 4. Hypertension: Blood pressure well controlled, although hypertensive on presentation. Blood pressure has improved with diuresis. 5. Dyslipidemia: Intolerant to statin therapy per records. This can be addressed by primary rail grinder. Could consider alternative to statin therapy given CAD. 6. Disposition: Cardiology will continue to follow. Patient care discussed with Dr. Villela of the primary hospitalist service. On discharge, he should follow up with heart failure program and his primary rail grinder, Dr. Canchola/Mr. Galeana. Admission and Anticipated Discharge Date Admission Date: March 07, 2020 Subjective He feels much better today. He denies shortness of breath but admits that he has not significantly ambulated. He feels nearly back to baseline but not quite. His energy level is not yet back to normal. He believes that his edema has improved. He denies chest pain, syncope, near-syncope, palpitations, or bleeding. Review of systems: As above. Physical Exam Physical Exam: Gen.: No acute distress. Alert and oriented. HEENT: Anicteric sclera. Neck: No JVD appreciated while sitting upright. No hepatic jugular reflux noted. Cardiac: No ventricular heave. Regular. Normal S1-S2. No murmurs, rubs, or gallops. Pulmonary: Clear to auscultation bilaterally without wheezes, rales, or rhonchi. Abdomen: Soft, nontender, nondistended, with normoactive bowel sounds. No bruits noted. Extremities: 2+ radial pulses bilaterally. 2+ posterior tibialis pulses bilaterally. 1-2+ bilateral lower extremity pitting edema care home to the knees. No cyanosis. Psychiatric: Affect appears appropriate. Results & Data ([facility]) Vital Signs (Past 12 Hours) Vital Signs Temp Pulse Pulse Resp BP BP Pulse Ox 03/09/20 16:12 71 03/09/20 15:55 36.6 C 64 21 137/78 94 03/09/20 11:23 36.4 C L 64 18 121/73 93 03/09/20 08:00 36.4 C L 61 18 120/72 95 03/09/20 07:41 55 L Intake & Output 03/07/20 03/08/20 03/09/20 03/10/20 06:59 06:59 06:59 06:59 Intake Total 350 / 350 1130 / 1130 240 / 240 Output Total 2150 / 2150 2400 / 2400 1175 / 1175 Balance -1800 / -1800 -1270 / -1270 -935 / -935 Weight 130.1 kg 128.2 kg Laboratory Results Laboratory Results - last 24 hr 03/08/20 03/09/20 03/09/20 20:19 06:09 07:45 Sodium 140 Potassium 3.5 Chloride 105 Carbon Dioxide 26 Anion Gap 9.0 BUN 26 H Creatinine 1.30 Est Cr Clr Drug Dosing 64.1 Est GFR ( Amer) 61.4 Est GFR (Non-Af Amer) 53.0 BUN/Creatinine Ratio 19.9 Glucose 125 H POC Glucose 130 H 120 H Calcium 9.1 03/09/20 03/09/20 11:45 17:05 Sodium Potassium Chloride Carbon Dioxide Anion Gap BUN Creatinine Est Cr Clr Drug Dosing Est GFR ( Amer) Est GFR (Non-Af Amer) BUN/Creatinine Ratio Glucose POC Glucose 137 H 123 H Calcium Diagnostic Findings Telemetry personally reviewed: Sinus rhythm with PVCs. Medications Administered Current Inpatient Medications Acetaminophen (Tylenol) 650 mg PO Q4H PRN PRN Reason: Pain or Fever Stop: 04/06/20 18:32 Al Hydrox/Mg Hydrox/Simethicone (Maalox) 15 ml PO Q4H PRN PRN Reason: Dyspepsia Stop: 04/06/20 18:32 Allopurinol (Zyloprim) 300 mg PO DAILY [facility] Stop: 04/07/20 08:59 Last Admin: 03/09/20 08:48 Dose: 300 mg Documented by: Aspirin (Ecotrin Ectab) 81 mg PO DAILY [facility] Stop: 04/07/20 08:59 Last Admin: 03/09/20 08:47 Dose: 81 mg Documented by: Clotrimazole (Lotrimin 1%) 1 appln EXT BID [facility] Stop: 04/07/20 08:59 Last Admin: 03/09/20 08:47 Dose: 1 appln Documented by: Colestipol HCl (Colestid) 2 gm PO BID@1000,2200 [facility] Stop: 04/06/20 21:59 Last Admin: 03/09/20 08:47 Dose: 2 gm Documented by: Dextrose (Dextrose 50%) 25 - 50 ml IV UD PRN; Protocol PRN Reason: Hypoglycemia Protocol Stop: 04/06/20 18:32 Enoxaparin Sodium (Lovenox) 40 mg SQ Q12 [facility] Stop: 04/07/20 08:59 Last Admin: 03/09/20 08:47 Dose: 40 mg Documented by: Fish Oil ([place]-3 (Purified Fish Oil)) 1 gm PO DAILY [facility] Stop: 04/07/20 08:59 Last Admin: 03/09/20 08:47 Dose: 1 gm Documented by: Glucagon (Glucagen) 1 mg SQ UD PRN; Protocol PRN Reason: Hypoglycemia Protocol Stop: 04/06/20 18:32 Glucose (Dex4 Glucose) 4 - 8 tabs PO UD PRN; Protocol PRN Reason: Hypoglycemia Protocol Stop: 04/06/20 18:32 Glucose (Glucose 40%) 15 - 30 gm PO UD PRN; Protocol PRN Reason: Hypoglycemia Protocol Stop: 04/06/20 18:32 Furosemide 40 mg/ Syringe 4 mls @ 4 mls/min IV DAILY [facility] Stop: 04/07/20 08:59 Last Admin: 03/09/20 08:47 Dose: 4 mls/min Documented by: Insulin Aspart (Novolog Flexpen) 0 units SC ACHS [facility] Stop: 04/06/20 18:32 Last Admin: 03/09/20 17:15 Dose: Not Given Documented by: Isosorbide Mononitrate (Imdur Extended Rel) 60 mg PO DAILY [facility] Stop: 04/07/20 08:59 Last Admin: 03/09/20 08:47 Dose: 60 mg Documented by: Lisinopril (Zestril) 20 mg PO BID [facility] Stop: 04/06/20 20:59 Last Admin: 03/09/20 08:47 Dose: 20 mg Documented by: Magnesium Hydroxide (Milk Of Magnesia) 30 ml PO Q12H PRN PRN Reason: Constipation Stop: 04/06/20 18:32 Metoprolol Succinate (Toprol Xl) 100 mg PO BID [facility] Stop: 04/06/20 20:59 Last Admin: 03/09/20 08:47 Dose: 100 mg Documented by: Miscellaneous (Carbohydrates For Hypoglycemia) 15 - 30 gm PO UD PRN PRN Reason: Hypoglycemia Protocol Stop: 04/06/20 18:32 Multivitamins (Multivitamin Tab) 1 tab PO DAILY [facility] Stop: 04/07/20 08:59 Last Admin: 03/09/20 08:47 Dose: 1 tab Documented by: Multivitamins/Minerals (Multivitamin W/ Minerals Tab) 1 tab PO DAILY [facility]; Protocol Stop: 04/08/20 08:59 Last Admin: 03/09/20 08:47 Dose: 1 tab Documented by: Nitroglycerin (Nitrostat) 0.4 mg SL UD PRN PRN Reason: Chest Pain Stop: 04/06/20 18:32 Ondansetron HCl (Zofran) 4 mg IV Q6H PRN PRN Reason: Nausea Stop: 04/06/20 18:32 Polyethylene Glycol (Miralax Powder Packet) 17 gm PO DAILY PRN PRN Reason: Constipation Stop: 04/06/20 18:32 Spironolactone (Aldactone) 25 mg PO QAM [facility] Stop: 04/08/20 08:59 Last Admin: 03/09/20 08:47 Dose: 25 mg Documented by: PG Care Time/CCT Total # of Minutes Spent Total Time Spent with Patient: Total time spent is greater than 50% in coordination of care (as documented) at patient's floor/unit and/or counseling patient: Coding Level of Care Code 52593 Subseq Hosp Care Lvl 3 Diagnoses Acute diastolic CHF (congestive heart failure) I50.31 Coronary artery disease I25.10 S/P coronary artery stent placement Z95.5 Hypertension I10
[2020-03-10 07:42] LABS: BUN Creatinine Ratio 20.8 (10-20); Calcium 9.4 mg/dl (8.5-10.1); Creatinine Clr Calc Pharmacy 54.7 ml/min; Est GFR (African American) 50.9; Est GFR (Non-African American) 43.9; Potassium 3.5 mmol/L (3.5-5.1)
[2020-03-10] MEDS: SPIRONOLACTONE 25 MG TAB PO SCH (07:48)
[2020-03-10] MEDS: ASPIRIN 81 MG ECTAB PO SCH (07:49)
[2020-03-10] MEDS: ISOSORBIDE MONO EXTENDED REL 60 MG TABCR PO SCH (07:49)
[2020-03-10] MEDS: CLOTRIMAZOLE 1% CR 15 GM TUBE EXT SCH ×2 (07:49→20:34)
[2020-03-10] MEDS: ENOXAPARIN INJ 40 MG/0.4 ML SYR SQ SCH ×2 (07:50→20:34)
[2020-03-10] MEDS: CEROVITE ADV FORMULA TAB PO SCH (07:50)
[2020-03-10] MEDS: MULTIVITAMIN TAB PO SCH (07:50)
[2020-03-10] MEDS: OMEGA-3 (PURIFIED FISH OIL) 1 GM CAP PO SCH (07:50)
[2020-03-10] MEDS: METOPROLOL SUCC 50MG EXT REL TAB PO SCH ×2 (07:51→20:33)
[2020-03-10] MEDS: lisinopriL 20 MG TAB PO SCH ×2 (07:51→20:33)
[2020-03-10] MEDS: allopurinoL 300 MG TAB PO SCH (07:52)
[2020-03-10] MEDS: INSULIN ASPART 100 UNITS/ML 3 ML PEN SC SCH ×4 (08:56→21:15)
[2020-03-10] MEDS: COLESTIPOL HCL 1 GM TAB PO SCH ×2 (09:28→21:39)
[2020-03-10] MEDS: FUROSEMIDE 40 MG in SYRINGE 0 ML IV SCH (09:28)
--- NOTE | 2020-03-10 15:46 | Hospitalist Progress Note ---
Date of Service March 10, 2020 Assessment & Plan (1) CIRILO (acute kidney injury): Baseline 1.3, now at 1.5 Likely related to lasix use Monitor (2) Acute congestive heart failure: HFpEF patient's had a mild increase in BUN and creatinine with diuresis wi ll continue with scheduled diuresis as listed below and continue to watch his renal function but he has dry weight and then eventually discharged to heart failure clinic Lasix 40mg IV daily, cards planning to PO today Spironolactone 25mg PO QAM Metoprolol XL 100mg BID, BP appears to be better controlled with some diuresis Lisinopril 20mg BID -> consider switching to Entresto given new diagnosis of heart failure, will defer to his cadd instructor Echo mildly reduced EF 45-50% some RWMA Fluid restrict 1500ml, heart healthy, low-sodium diet. Cardiology consult HFpEF, started on spironolactone and recommend heart failure clinic follow up Wean O2 today (3) Hyperlipidemia: Intolerant to statins as per prior cardiology consult. . LDL [12/18] 92, no need to repeat (4) Hypertension: Continue usual outpatient meds (Lisinopril, Metoprolol, ISMN) with addition of lasix above Switch HCTZ/triamterene for spironolactone 25mg PO daily (5) Diabetes: A1c 6.4 Hold metformin during admission Insulin correction coverage only. Will add basal if requiring > 10 units/day of correction (6) Gout: Chronic. No acute flare. Continue allopurinol (7) Coronary artery disease: Conitinue ASA, metoprolol, lisinopril. Not on statin due to prior intolerance as above (8) Tinea corporis: Left abdominal wall and under left breast. Continue clotrimazole cream twice daily. Follow-up with primary care physician. 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 He has not had any SOB at rest or with walking the halls, however he has not been without O2 since arrival. Still with some LE swelling, but improved. Pt denies fever, chest pain, abd pain, n/v/c/d, LE pain. No hx of home O2 use. Review of Systems Review of Systems: Pertinent positives and negatives reviewed in HPI--all others negative Physical Exam Constitutional: WD/WN, vitals as above Eyes: normal visual ascencio by confrontation and + anicteric sclerae Neck: normal visual inspection and trachea midline Respiratory: normal respiratory effort, lungs clear to auscultation Cardiovascular: Rate/Rhythm: regular rate and regular rhythm Extremities: + edema (trace pitting edema) Gastrointestinal (Abdomen): Inspection/Auscultation: abdomen not distended Percussion/Palpation: abdomen soft; abdomen nontender Musculoskeletal: Head/Neck/Chest: normocephalic and head atraumatic peripheral pulses intact Skin: no rashes, warm and dry Neurologic: awake; not confused Speech / Cognition: normal speech Psychiatric: A+Ox3, euthymic affect Results & Data Results & Data ([facility]) Vital Signs (Past 12 Hours) Vital Signs Temp Pulse Pulse Resp BP BP Pulse Ox 03/10/20 15:00 67 03/10/20 14:00 36.6 C 66 18 142/74 H 93 03/10/20 13:55 93 03/10/20 11:25 96 03/10/20 11:00 36.5 C 64 18 115/75 96 03/10/20 07:50 75 03/10/20 07:38 59 L 03/10/20 07:00 36.8 C 52 L 20 118/75 96 03/10/20 04:44 68 03/10/20 03:57 36.8 C 69 18 118/73 93 PG Care Time/CCT Total # of Minutes Spent Total Time Spent with Patient: Total time spent is greater than 50% in coordination of care (as documented) at patient's floor/unit and/or counseling patient: Coding Level of Care Code 94889 Subseq Hosp Care Lvl 3 Diagnoses CIRILO (acute kidney injury) N17.9 Acute congestive heart failure I50.9 Heart failure type: unspecified Hyperlipidemia E78.5 Hypertension I10 Diabetes E11.9 Gout M10.9 Coronary artery disease I25.10 Tinea corporis B35.4 DVT prophylaxis Z29.9 (1) Acute congestive heart failure Heart failure type: unspecified Qualified Code(s): I50.9 - Heart failure, unspecified
--- NOTE | 2020-03-10 19:00 | Cardiology Progress Note ---
Date of Service March 10, 2020 Assessment & Plan (1) Acute diastolic CHF (congestive heart failure): (2) Coronary artery disease: (3) S/P coronary artery stent placement: (4) Hypertension: ASSESSMENT/PLAN: 1. Acute diastolic CHF: LV systolic function is only mildly reduced so overall, he has relatively preserved EF. He is approaching euvolemia, remaining mildly hypervolemic today. BUN and creatinine have increased. His creatinine is now actually near his prior baseline. Continue Lasix 40 mg IV daily with spironolactone 25 mg daily. We discussed importance of a low-sodium diet and daily weights. He has now enrolled in the Heart failure program. 2. CAD s/p PCI of mid LAD: No angina. Continue aspirin 81 mg daily. Intolerant to statin therapy. Continue metoprolol succinate 100 mg twice daily. Continue SOPHIE-inhibitor. 3. Ischemic cardiomyopathy: LV systolic function is only mildly reduced. Continue SOPHIE-inhibitor and beta-ruby. Plan as above. 4. Hypertension: Blood pressure remained adequately controlled, although he was hypertensive on presentation. Blood pressure has improved with diuresis. 5. Dyslipidemia: Intolerant to statin therapy per records. This can be addressed by primary reversing mill roller. Could consider alternative to statin therapy given CAD. 6. Disposition: Cardiology will continue to follow. Patient care discussed with Dr. Sarmiento of the primary hospitalist service. On discharge, he should follow up with heart failure program ([facility]) and his primary reversing mill roller, Dr. Canchola/Raul Lissett. Admission and Anticipated Discharge Date Admission Date: March 07, 2020 Subjective He admits that he is feeling much better in regards to his breathing. He was able to ambulate in the hallways and at the end of the walk noted that he was a bit dyspneic, but much improved compared to presentation. He denies chest pain, shortness of breath at rest, syncope, near-syncope, palpitations. His edema has improved. Review of systems: As above. Physical Exam Physical Exam: Gen.: No acute distress. Alert and oriented. HEENT: Anicteric sclera. Neck: No JVD appreciated while sitting upright. No hepatic jugular reflux noted. Cardiac: No ventricular heave. Regular. Normal S1-S2. No murmurs, rubs, or gallops. Pulmonary: Clear to auscultation bilaterally without wheezes, rales, or rhonchi. Abdomen: Soft, nontender, nondistended, with normoactive bowel sounds. No bruits noted. Extremities: 2+ radial pulses bilaterally. 2+ posterior tibialis pulses bilaterally. 1+ bilateral lower extremity edema (improved). No cyanosis. Psychiatric: Affect appears appropriate. Results & Data ([facility]) Vital Signs (Past 12 Hours) Vital Signs Temp Pulse Pulse Resp BP BP Pulse Ox 03/10/20 18:52 36.6 C 70 18 117/69 92 03/10/20 15:00 67 03/10/20 14:00 36.6 C 66 18 142/74 H 93 03/10/20 13:55 93 03/10/20 11:25 96 03/10/20 11:00 36.5 C 64 18 115/75 96 03/10/20 07:50 75 03/10/20 07:38 59 L Intake & Output 03/08/20 03/09/20 03/10/20 03/11/20 06:59 06:59 06:59 06:59 Intake Total 350 / 350 1130 / 1130 740 / 740 825 / 825 Output Total 2150 / 2150 2400 / 2400 1700 / 1700 1600 / 1600 Balance -1800 / -1800 -1270 / -1270 -960 / -960 -775 / -775 Weight 130.1 kg 128.2 kg 127.8 kg 126.5 kg Laboratory Results Laboratory Results - last 24 hr 03/10/20 03/10/20 03/10/20 06:34 07:29 11:38 Sodium 139 Potassium 3.5 Chloride 103 Carbon Dioxide 29 Anion Gap 7.0 BUN 32 H Creatinine 1.52 H Est Cr Clr Drug Dosing 54.7 Est GFR ( Amer) 50.9 Est GFR (Non-Af Amer) 43.9 BUN/Creatinine Ratio 20.8 H Glucose 126 H POC Glucose 132 H 125 H Calcium 9.4 03/10/20 03/10/20 16:37 20:40 Sodium Potassium Chloride Carbon Dioxide Anion Gap BUN Creatinine Est Cr Clr Drug Dosing Est GFR ( Amer) Est GFR (Non-Af Amer) BUN/Creatinine Ratio Glucose POC Glucose 114 H 115 H Calcium Diagnostic Findings Telemetry personally reviewed: Sinus rhythm with PVCs. Medications Administered Current Inpatient Medications Acetaminophen (Tylenol) 650 mg PO Q4H PRN PRN Reason: Pain or Fever Stop: 04/06/20 18:32 Al Hydrox/Mg Hydrox/Simethicone (Maalox) 15 ml PO Q4H PRN PRN Reason: Dyspepsia Stop: 04/06/20 18:32 Allopurinol (Zyloprim) 300 mg PO DAILY [facility] Stop: 04/07/20 08:59 Last Admin: 03/10/20 07:52 Dose: 300 mg Documented by: Aspirin (Ecotrin Ectab) 81 mg PO DAILY [facility] Stop: 04/07/20 08:59 Last Admin: 03/10/20 07:49 Dose: 81 mg Documented by: Clotrimazole (Lotrimin 1%) 1 appln EXT BID [facility] Stop: 04/07/20 08:59 Last Admin: 03/10/20 20:34 Dose: 1 appln Documented by: Colestipol HCl (Colestid) 2 gm PO BID@1000,2200 [facility] Stop: 04/06/20 21:59 Last Admin: 03/10/20 21:39 Dose: 2 gm Documented by: Dextrose (Dextrose 50%) 25 - 50 ml IV UD PRN; Protocol PRN Reason: Hypoglycemia Protocol Stop: 04/06/20 18:32 Enoxaparin Sodium (Lovenox) 40 mg SQ Q12 [facility] Stop: 04/07/20 08:59 Last Admin: 03/10/20 20:34 Dose: 40 mg Documented by: Fish Oil ([place]-3 (Purified Fish Oil)) 1 gm PO DAILY [facility] Stop: 04/07/20 08:59 Last Admin: 03/10/20 07:50 Dose: 1 gm Documented by: Glucagon (Glucagen) 1 mg SQ UD PRN; Protocol PRN Reason: Hypoglycemia Protocol Stop: 04/06/20 18:32 Glucose (Dex4 Glucose) 4 - 8 tabs PO UD PRN; Protocol PRN Reason: Hypoglycemia Protocol Stop: 04/06/20 18:32 Glucose (Glucose 40%) 15 - 30 gm PO UD PRN; Protocol PRN Reason: Hypoglycemia Protocol Stop: 04/06/20 18:32 Furosemide 40 mg/ Syringe 4 mls @ 4 mls/min IV DAILY [facility] Stop: 04/07/20 08:59 Last Admin: 03/10/20 09:28 Dose: 4 mls/min Documented by: Insulin Aspart (Novolog Flexpen) 0 units SC ACHS [facility] Stop: 04/06/20 18:32 Last Admin: 03/10/20 21:15 Dose: Not Given Documented by: Isosorbide Mononitrate (Imdur Extended Rel) 60 mg PO DAILY [facility] Stop: 04/07/20 08:59 Last Admin: 03/10/20 07:49 Dose: 60 mg Documented by: Lisinopril (Zestril) 20 mg PO BID [facility] Stop: 04/06/20 20:59 Last Admin: 03/10/20 20:33 Dose: 20 mg Documented by: Magnesium Hydroxide (Milk Of Magnesia) 30 ml PO Q12H PRN PRN Reason: Constipation Stop: 04/06/20 18:32 Metoprolol Succinate (Toprol Xl) 100 mg PO BID [facility] Stop: 04/06/20 20:59 Last Admin: 03/10/20 20:33 Dose: 100 mg Documented by: Miscellaneous (Carbohydrates For Hypoglycemia) 15 - 30 gm PO UD PRN PRN Reason: Hypoglycemia Protocol Stop: 04/06/20 18:32 Multivitamins (Multivitamin Tab) 1 tab PO DAILY [facility] Stop: 04/07/20 08:59 Last Admin: 03/10/20 07:50 Dose: 1 tab Documented by: Multivitamins/Minerals (Multivitamin W/ Minerals Tab) 1 tab PO DAILY [facility]; Protocol Stop: 04/08/20 08:59 Last Admin: 03/10/20 07:50 Dose: 1 tab Documented by: Nitroglycerin (Nitrostat) 0.4 mg SL UD PRN PRN Reason: Chest Pain Stop: 04/06/20 18:32 Ondansetron HCl (Zofran) 4 mg IV Q6H PRN PRN Reason: Nausea Stop: 04/06/20 18:32 Polyethylene Glycol (Miralax Powder Packet) 17 gm PO DAILY PRN PRN Reason: Constipation Stop: 04/06/20 18:32 Last Admin: 03/10/20 10:19 Dose: 17 gm Documented by: Spironolactone (Aldactone) 25 mg PO QAM [facility] Stop: 04/08/20 08:59 Last Admin: 03/10/20 07:48 Dose: 25 mg Documented by: PG Care Time/CCT Total # of Minutes Spent Total Time Spent with Patient: Total time spent is greater than 50% in coordination of care (as documented) at patient's floor/unit and/or counseling patient: Coding Level of Care Code 52830 Subseq Hosp Care Lvl 3 Diagnoses Acute diastolic CHF (congestive heart failure) I50.31 Coronary artery disease I25.10 S/P coronary artery stent placement Z95.5 Hypertension I10
[2020-03-11 07:20] LABS: Calcium 9.1 mg/dl (8.5-10.1); Creatinine Clr Calc Pharmacy 61.1 ml/min; Est GFR (African American) 58.7; Est GFR (Non-African American) 50.6; Potassium 3.6 mmol/L (3.5-5.1)
[2020-03-11] MEDS: allopurinoL 300 MG TAB PO SCH (08:08)
[2020-03-11] MEDS: lisinopriL 20 MG TAB PO SCH ×2 (08:09→20:39)
[2020-03-11] MEDS: ISOSORBIDE MONO EXTENDED REL 60 MG TABCR PO SCH (08:09)
[2020-03-11] MEDS: CEROVITE ADV FORMULA TAB PO SCH (08:09)
[2020-03-11] MEDS: METOPROLOL SUCC 50MG EXT REL TAB PO SCH ×2 (08:09→20:39)
[2020-03-11] MEDS: ASPIRIN 81 MG ECTAB PO SCH (08:09)
[2020-03-11] MEDS: SPIRONOLACTONE 25 MG TAB PO SCH (08:10)
[2020-03-11] MEDS: MULTIVITAMIN TAB PO SCH (08:10)
[2020-03-11] MEDS: OMEGA-3 (PURIFIED FISH OIL) 1 GM CAP PO SCH (08:10)
[2020-03-11] MEDS: CLOTRIMAZOLE 1% CR 15 GM TUBE EXT SCH ×2 (08:11→20:36)
[2020-03-11] MEDS: FUROSEMIDE 40 MG in SYRINGE 0 ML IV SCH (08:11)
[2020-03-11] MEDS: INSULIN ASPART 100 UNITS/ML 3 ML PEN SC SCH ×4 (08:12→20:37)
[2020-03-11] MEDS: ENOXAPARIN INJ 40 MG/0.4 ML SYR SQ SCH ×2 (08:20→20:36)
[2020-03-11] MEDS: COLESTIPOL HCL 1 GM TAB PO SCH ×2 (10:25→21:33)
[2020-03-11] MEDS ORDERED: FUROSEMIDE 40 MG in SYRINGE 0 ML IV ONE (15:15)
--- NOTE | 2020-03-11 15:24 | Hospitalist Progress Note ---
Date of Service March 11, 2020 Assessment & Plan (1) CIRILO (acute kidney injury): Baseline 1.3, now at 1.3 Likely related to lasix use Monitor (2) Acute congestive heart failure: HFpEF patient's had a mild increase in BUN and creatinine with diuresis w ill continue with scheduled diuresis as listed below and continue to watch his renal function but he has dry weight and then eventually discharged to heart failure clinic Lasix 40mg IV daily with additional dosing this afternoon x1 Spironolactone 25mg PO QAM Metoprolol XL 100mg BID, BP appears to be better controlled with some diuresis Lisinopril 20mg BID -> consider switching to Entresto given new diagnosis of heart failure, 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 Cardiology consult HFpEF, started on spironolactone and recommend heart failure clinic follow up Wean O2 successful. (3) Hyperlipidemia: Intolerant to statins as per prior cardiology consult LDL [12/18] 92, no need to repeat colestipol at home (4) Hypertension: Continue usual outpatient meds (Lisinopril, Metoprolol, ISMN) with addition of lasix above Switch HCTZ/triamterene for spironolactone 25mg PO daily (5) Diabetes: A1c 6.4 Hold metformin during admission Insulin correction coverage only. Will add basal if requiring > 10 units/day of correction (6) Gout: Chronic. No acute flare. Continue allopurinol (7) Coronary artery disease: Conitinue ASA, metoprolol, lisinopril. Not on statin due to prior intolerance as above (8) Tinea corporis: Left abdominal wall and under left breast. Continue clotrimazole cream twice daily. Follow-up with primary care physician. (9) DVT prophylaxis: Lovenox 40mg SQ Q12H, increased dose due to morbid obesity Admission and Anticipated Discharge Date Admission Date: March 07, 2020 Subjective Pt states he is walking the halls and getting mildly SOB by the end of several "laps" . 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 He has not been on O2 since yesterday and feels fine without it at rest. No chest pain. Pt denies fever, abd pain, n/v/c/d, LE pain. LE swelling is mostly resolved. Review of Systems Review of Systems: Pertinent positives and negatives reviewed in HPI--all others negative Physical Exam Constitutional: WD/WN, vitals as above Eyes: normal visual ascencio by confrontation and + anicteric sclerae Neck: normal visual inspection and trachea midline Respiratory: normal respiratory effort, lungs clear to auscultation Cardiovascular: Rate/Rhythm: regular rate and regular rhythm Extremities: + edema (trace pitting edema) Gastrointestinal (Abdomen): Inspection/Auscultation: abdomen not distended Percussion/Palpation: abdomen soft; abdomen nontender Musculoskeletal: Head/Neck/Chest: normocephalic and head atraumatic Skin: no rashes, warm and dry Neurologic: awake; not confused Speech / Cognition: normal speech Psychiatric: A+Ox3, euthymic affect Results & Data Results & Data ([facility]) Vital Signs (Past 12 Hours) Vital Signs Temp Pulse Pulse Resp BP BP Pulse Ox 03/11/20 15:16 36.7 C 71 18 118/68 93 03/11/20 11:22 36.7 C 68 20 119/75 93 03/11/20 07:46 57 L 03/11/20 06:41 36.7 C 63 22 150/87 H 91 03/11/20 04:03 36.6 C 64 19 147/80 H 91 PG Care Time/CCT Total # of Minutes Spent Total Time Spent with Patient: Total time spent is greater than 50% in coordination of care (as documented) at patient's floor/unit and/or counseling patient: Coding Level of Care Code 82443 Subseq Hosp Care Lvl 3 Diagnoses CIRILO (acute kidney injury) N17.9 Acute congestive heart failure I50.9 Heart failure type: unspecified Hyperlipidemia E78.5 Hypertension I10 Diabetes E11.9 Gout M10.9 Coronary artery disease I25.10 Tinea corporis B35.4 DVT prophylaxis Z29.9 (1) Acute congestive heart failure Heart failure type: unspecified Qualified Code(s): I50.9 - Heart failure, unspecified
--- NOTE | 2020-03-11 16:00 | Cardiology Progress Note ---
Date of Service March 11, 2020 Assessment & Plan (1) Acute diastolic CHF (congestive heart failure): (2) Coronary artery disease: (3) S/P coronary artery stent placement: (4) Hypertension: ASSESSMENT/PLAN: 1. Acute diastolic CHF: LV systolic function is only mildly reduced so overall, he has relatively preserved EF. Mildly hypervolemic but improving daily. Another dose of Lasix 40 mg IV x1 now and addition to his morning dose. Creatinine remains at baseline. Continue Lasix 40 mg IV daily with spironolactone 25 mg daily. Continue low-sodium diet and daily weights. He has now enrolled in the Heart failure program. 2. CAD s/p PCI of mid LAD: No angina. Continue aspirin 81 mg daily. Intolerant to statin therapy. Continue metoprolol succinate 100 mg twice daily. Continue SOPHIE-inhibitor. 3. Ischemic cardiomyopathy: LV systolic function is only mildly reduced. Cont inue SOPHIE-inhibitor and beta-ruby. Plan as above. 4. Hypertension: Blood pressure is well controlled. Continue current regimen. 5. Dyslipidemia: Intolerant to statin therapy per records. This can be addressed by primary airport traffic controller. Could consider alternative to statin therapy given CAD. 6. Disposition: I will be away from the hospital for the next few days. He will likely be ready for discharge in the next 1-2 days. Please call on-call airport traffic controller for any questions or concerns. Patient care discussed with Dr. Sarmiento of the primary hospitalist service. On discharge, he should follow up with heart failure program ([facility]) and his primary airport traffic controller, Dr. Canchola/Mr. Galeana. Admission and Anticipated Discharge Date Admission Date: March 07, 2020 Subjective He is feeling better today. He did more laps in the hallway today but did have some dyspnea door today and. He is not yet back to baseline. He denies chest pain, syncope, near-syncope, palpitations. He believes that his edema is slowly improving. Review of systems: As above. Physical Exam Physical Exam: Gen.: No acute distress. Alert and oriented. HEENT: Anicteric sclera. Neck: No JVD appreciated while sitting upright. No hepatic jugular reflux noted. Cardiac: No ventricular heave. Regular. No ectopy. Normal S1-S2. No murmurs, rubs, or gallops. Pulmonary: Clear to auscultation bilaterally without wheezes, rales, or rhonchi. Abdomen: Soft, nontender, nondistended, with normoactive bowel sounds. No bruits noted. Extremities: 2+ radial pulses bilaterally. 1+ bilateral lower extremity edema a third of the way to the knees. No cyanosis. Psychiatric: Affect appears appropriate. Results & Data ([facility]) Vital Signs (Past 12 Hours) Vital Signs Temp Pulse Pulse Resp BP BP Pulse Ox 03/11/20 15:16 36.7 C 71 18 118/68 93 03/11/20 11:22 36.7 C 68 20 119/75 93 03/11/20 07:46 57 L 03/11/20 06:41 36.7 C 63 22 150/87 H 91 03/11/20 04:03 36.6 C 64 19 147/80 H 91 Intake & Output 03/09/20 03/10/20 03/11/20 03/12/20 06:59 06:59 06:59 06:59 Intake Total 1130 / 1130 740 / 740 825 / 825 700 / 700 Output Total 2400 / 2400 1700 / 1700 1925 / 1925 1245 / 1245 Balance -1270 / -1270 -960 / -960 -1100 / -1100 -545 / -545 Weight 128.2 kg 127.8 kg 126 kg Laboratory Results Laboratory Results - last 24 hr 03/10/20 03/10/20 03/11/20 16:37 20:40 06:08 Sodium 142 Potassium 3.6 Chloride 106 Carbon Dioxide 30 Anion Gap 6.0 BUN 34 H Creatinine 1.35 Est Cr Clr Drug Dosing 61.1 Est GFR ( Amer) 58.7 Est GFR (Non-Af Amer) 50.6 BUN/Creatinine Ratio 25.0 H Glucose 117 H POC Glucose 114 H 115 H Calcium 9.1 03/11/20 03/11/20 07:25 11:36 Sodium Potassium Chloride Carbon Dioxide Anion Gap BUN Creatinine Est Cr Clr Drug Dosing Est GFR ( Amer) Est GFR (Non-Af Amer) BUN/Creatinine Ratio Glucose POC Glucose 119 H 133 H Calcium Diagnostic Findings Telemetry personally reviewed: Sinus rhythm. No arrhythmia. Medications Administered Current Inpatient Medications Acetaminophen (Tylenol) 650 mg PO Q4H PRN PRN Reason: Pain or Fever Stop: 04/06/20 18:32 Al Hydrox/Mg Hydrox/Simethicone (Maalox) 15 ml PO Q4H PRN PRN Reason: Dyspepsia Stop: 04/06/20 18:32 Allopurinol (Zyloprim) 300 mg PO DAILY NAPOLEON Stop: 04/07/20 08:59 Last Admin: 03/11/20 08:08 Dose: 300 mg Documented by: Aspirin (Ecotrin Ectab) 81 mg PO DAILY N[place]OLEON Stop: 04/07/20 08:59 Last Admin: 03/11/20 08:09 Dose: 81 mg Documented by: Clotrimazole (Lotrimin 1%) 1 appln EXT BID N[place]ON Stop: 04/07/20 08:59 Last Admin: 03/11/20 08:11 Dose: 1 appln Documented by: Colestipol HCl (Colestid) 2 gm PO BID@1000,2200 [place]ON Stop: 04/06/20 21:59 Last Admin: 03/11/20 10:25 Dose: 2 gm Documented by: Dextrose (Dextrose 50%) 25 - 50 ml IV UD PRN; Protocol PRN Reason: Hypoglycemia Protocol Stop: 04/06/20 18:32 Enoxaparin Sodium (Lovenox) 40 mg SQ Q12 [place] Stop: 04/07/20 08:59 Last Admin: 03/11/20 08:20 Dose: 40 mg Documented by: Fish Oil ([place]-3 (Purified Fish Oil)) 1 gm PO DAILY N[place]LEON Stop: 04/07/20 08:59 Last Admin: 03/11/20 08:10 Dose: 1 gm Documented by: Glucagon (Glucagen) 1 mg SQ UD PRN; Protocol PRN Reason: Hypoglycemia Protocol Stop: 04/06/20 18:32 Glucose (Dex4 Glucose) 4 - 8 tabs PO UD PRN; Protocol PRN Reason: Hypoglycemia Protocol Stop: 04/06/20 18:32 Glucose (Glucose 40%) 15 - 30 gm PO UD PRN; Protocol PRN Reason: Hypoglycemia Protocol Stop: 04/06/20 18:32 Furosemide 40 mg/ Syringe 4 mls @ 4 mls/min IV DAILY N[place]ON Stop: 04/07/20 08:59 Last Admin: 03/11/20 08:11 Dose: 4 mls/min Documented by: Insulin Aspart (Novolog Flexpen) 0 units SC ACHS N[place]LEON Stop: 04/06/20 18:32 Last Admin: 03/11/20 12:29 Dose: Not Given Documented by: Isosorbide Mononitrate (Imdur Extended Rel) 60 mg PO DAILY N[place]LEON Stop: 04/07/20 08:59 Last Admin: 03/11/20 08:09 Dose: 60 mg Documented by: Lisinopril (Zestril) 20 mg PO BID N[place]LEON Stop: 04/06/20 20:59 Last Admin: 03/11/20 08:09 Dose: 20 mg Documented by: Magnesium Hydroxide (Milk Of Magnesia) 30 ml PO Q12H PRN PRN Reason: Constipation Stop: 04/06/20 18:32 Metoprolol Succinate (Toprol Xl) 100 mg PO BID N[place]OLEON Stop: 04/06/20 20:59 Last Admin: 03/11/20 08:09 Dose: 100 mg Documented by: Miscellaneous (Carbohydrates For Hypoglycemia) 15 - 30 gm PO UD PRN PRN Reason: Hypoglycemia Protocol Stop: 04/06/20 18:32 Multivitamins (Multivitamin Tab) 1 tab PO DAILY [facility] Stop: 04/07/20 08:59 Last Admin: 03/11/20 08:10 Dose: 1 tab Documented by: Multivitamins/Minerals (Multivitamin W/ Minerals Tab) 1 tab PO DAILY [facility]; Protocol Stop: 04/08/20 08:59 Last Admin: 03/11/20 08:09 Dose: 1 tab Documented by: Nitroglycerin (Nitrostat) 0.4 mg SL UD PRN PRN Reason: Chest Pain Stop: 04/06/20 18:32 Ondansetron HCl (Zofran) 4 mg IV Q6H PRN PRN Reason: Nausea Stop: 04/06/20 18:32 Polyethylene Glycol (Miralax Powder Packet) 17 gm PO DAILY PRN PRN Reason: Constipation Stop: 04/06/20 18:32 Last Admin: 03/10/20 10:19 Dose: 17 gm Documented by: Spironolactone (Aldactone) 25 mg PO QAM [facility] Stop: 04/08/20 08:59 Last Admin: 03/11/20 08:10 Dose: 25 mg Documented by: PG Care Time/CCT Total # of Minutes Spent Total Time Spent with Patient: Total time spent is greater than 50% in coordination of care (as documented) at patient's floor/unit and/or counseling patient: Coding Level of Care Code 13641 Subseq Hosp Care Lvl 3 Diagnoses Acute diastolic CHF (congestive heart failure) I50.31 Coronary artery disease I25.10 S/P coronary artery stent placement Z95.5 Hypertension I10
[2020-03-12] MEDS: ENOXAPARIN INJ 40 MG/0.4 ML SYR SQ SCH (07:28)
[2020-03-12] MEDS: CEROVITE ADV FORMULA TAB PO SCH (07:29)
[2020-03-12] MEDS: SPIRONOLACTONE 25 MG TAB PO SCH (07:29)
[2020-03-12] MEDS: MULTIVITAMIN TAB PO SCH (07:30)
[2020-03-12] MEDS: ISOSORBIDE MONO EXTENDED REL 60 MG TABCR PO SCH (07:30)
[2020-03-12] MEDS: ASPIRIN 81 MG ECTAB PO SCH (07:30)
[2020-03-12] MEDS: allopurinoL 300 MG TAB PO SCH (07:30)
[2020-03-12] MEDS: OMEGA-3 (PURIFIED FISH OIL) 1 GM CAP PO SCH (07:30)
[2020-03-12] MEDS: METOPROLOL SUCC 50MG EXT REL TAB PO SCH (07:31)
[2020-03-12] MEDS: CLOTRIMAZOLE 1% CR 15 GM TUBE EXT SCH (07:31)
[2020-03-12] MEDS: lisinopriL 20 MG TAB PO SCH (07:31)
[2020-03-12] MEDS: FUROSEMIDE 40 MG in SYRINGE 0 ML IV SCH (08:27)
[2020-03-12] MEDS: INSULIN ASPART 100 UNITS/ML 3 ML PEN SC SCH ×2 (08:27→12:19)
[2020-03-12] MEDS: COLESTIPOL HCL 1 GM TAB PO SCH (10:29)
--- NOTE | 2020-03-12 11:26 | Discharge Summary ---
Date of Service March 12, 2020 Admission HPI Per Admitting Provider Moisés Peterson is a 75-year-old male who presents to the ER with concern for pulmonary embolism due to ongoing shortness of breath on exertion for the past 2 weeks. He has a prior history of pulmonary embolism and although his symptoms have not been significantly worse today it did cross his mind that this might be the cause of his shortness of breath therefore decided to come to the ER as he had similar symptoms 10 years prior. He was also concerned about COVID-19 although reports no cough, fever, known COVID-19 exposure, loss or taste or smell. He has a known cardiac history with anterior [place] in 2006 with stent placed in mid LAD and follows outpatient with Dr Canchola. He denies any chest pain on exertion. No palpitations, claudication, presyncope or syncope. He does note associated paroxysmal nocturnal dyspnea and orthopnea over the same time period as his worsening shortness of breath on exertion. He has not noticed increased leg swelling and notes his right leg has always been bigger than his left leg since his prior DVT 10 years prior. In the ER he was given 40mg IV Lasix and is already responding with increased urination and improved shortness of breath. He is under urology for increased PSA but reports no change to his urine prior to Lasix being given. No nocturia, poor flow, increased frequency. Principal Diagnosis Pt is feeling much improved overall. He has continued to walk his "laps" and feels that his breathing with this exertion is continuing to improve. He states that he would feel comfortable going home today with his current exertion level. LE swelling is mostly resolved. Tolerating PO without issue. Pt denies fever, chest pain, abd pain, n/v/c/d, LE pain. Discharge Exam Constitutional WD/WN, vitals as above Eyes normal visual ascencio by confrontation and + anicteric sclerae Neck normal visual inspection and trachea midline Respiratory normal respiratory effort, lungs clear to auscultation Cardiovascular Rate/Rhythm: regular rate and regular rhythm Extremities: + edema (trace pitting edema) Gastrointestinal (Abdomen) Inspection/Auscultation: abdomen not distended Percussion/Palpation: abdomen soft; abdomen nontender Musculoskeletal Head/Neck/Chest: normocephalic and head atraumatic Skin no rashes, warm and dry Neurologic awake; not confused Speech / Cognition: normal speech Psychiatric A+Ox3, euthymic affect Discharge Data Allergies Allergy/AdvReac Type Severity Reaction Status Date / Time [id number] Reductase AdvReac Intermediate MYALGIAS Verified 03/07/20 12:58 Inhibitor Consultations 03/07/20 14:52 ED Decision to Admit Stat 03/07/20 18:33 Consult Cardiology Routine Ordered Studies 03/07/20 12:40 CT angio chest PE protocol Stat Hospital Course (1) CIRILO (acute kidney injury): Baseline 1.3, now at 1.3 on d/c Likely related to lasix use Monitor (2) Acute congestive heart failure: HFpEF patient's had a mild increase in BUN and creatinine with diuresis will continue with scheduled diuresis as listed below and continue to watch his renal function but he has dry weight and then eventually discharged to heart failure clinic Treated with multiple doses of Lasix 40mg IV Spironolactone 25mg PO QAM Metoprolol XL 100mg BID, BP appears to be better controlled with some diuresis Lisinopril 20mg BID -> consider switching to Entresto given new diagnosis of heart failure, will defer to his professional housing consultant Echo mildly reduced EF 45-50% some RWMA Fluid restrict 1500ml, heart healthy, low-sodium diet. Cardiology consult HFpEF, started on spironolactone and recommend heart failure clinic follow up Wean O2 successful Will d/c on lasix 60mg PO QD. Pt to purchase scale for daily weights Further adjustments to lasix as per CHF clinic Spent a substantial portion of time addressing diet, salt intake with pt Pt given Mediterranean style diet handouts prior to d/c Advised about the potential benefits of CoQ10 in CHF pts (3) Hyperlipidemia: Intolerant to statins as per prior cardiology consult LDL [12/18] 92, no need to repeat colestipol at home t/c CoQ10 dosing if statins needed in the future (4) Hypertension: Continue usual outpatient meds (Lisinopril, Metoprolol, ISMN) with addition of lasix above Switch HCTZ/triamterene for spironolactone 25mg PO daily (5) Diabetes: A1c 6.4 Hold metformin during admission, resume on d/c (6) Gout: Chronic. No acute flare. Continue allopurinol (7) Coronary artery disease: Conitinue ASA, metoprolol, lisinopril. Not on statin due to prior intolerance as above (8) Tinea corporis: Left abdominal wall and under left breast. Continue clotrimazole cream twice daily. Follow-up with primary care physician. (9) DVT prophylaxis: Lovenox 40mg SQ Q12H, increased dose due to morbid obesity Total Time Total Time Spent Total Time Spent (In Minutes): >30 Total Time Includes: Examination of the Patient, Discharge Planning, Medication Reconciliation, Communication With Other Providers and Other Discharge Plan Discharge Items Patient Disposition: Home - Self-Care Reason For Visit: ACUTE CONGESTIVE HEART FAILURE Discharge Diagnosis: Acute congestive heart failure Activity: Resume your previous activity Non-emergency contact: Primary Care Provider and Wraparound Facilitator Call non-emergency contact if: you have any medication questions and your symptoms worsen Follow-up/Referrals: Sergio Conner DO [Physician] - (in the next 3-5 days) Lee Ann Kennedy PA-C [Physician Antenna Specialist] - 03/17/20 2:00 pm (Congestive Heart Failure Program Appointment Information Early follow up is essential to managing your heart failure. An appointment has been scheduled for you with the [facility] Heart Failure Program within 7 days of discharge. Anticipate this visit to be 30-60 minutes long. Please expect a spindle sander phone call from one of our nurses approximately 48 hours from discharge. They will also be placing an order for lab work to be completed 1-2 days prior to your heart failure follow up appointment. Please be sure to have this done so we can go over the results when you come in. Office Location The cardiology office building is located in front of the hospital at [address] [facility] [place]. Bring the following with you to your follow-up doctor appointments: Please bring your daily weight log any discharge paperwork all of your medication bottles with you to this visit. ) PCP,NO [Physician] - Diet: Carb Consistent or DM2 and Low Sodium (2gm) Addtl Attending Provider Instructions: You should limit your use of pre-made salad dressings as we discussed. You can make infinite combinations with flavored olive oils or vinegars with lemon or manzanita juice, black pepper, dill, tumeric, or other spices. You should continue to limit your intake of soups or boxed foods. If you are using canned vegetables, you should rinse them well prior to eating them. Frozen vegetables have far less salt than canned. You should also ask for no salt added when you order your eggs out as most restaurants add a lot of salt to their dishes. You mentioned that you have had issues with leg cramping/spasms when using statins (cholesterol medication) in the past. It may be recommended in the future that you try taking a statin medication again. You could start taking CoQ10 300mg per day if this is the case. This will help to prevent the cramping/spasms that some people get with statin use. CoQ10 can be helpful for heart failure in general, so you might want to consider taking this supplement now, regardless of if you are put on a statin in the future. CoQ10 comes in 2 forms: ubiquinOL and ubiquinONE. Ubiquinol is the active and best form to take as it is already ready for your body to use. It will absorb better than ubiquinone. Due to this, ubiquinol can be a bit more expensive than ubiquinone, but it will be more effective for you to take the more expensive version. You can find this at most [employer], [employer], [employer], etc. You should take this with some sort of fat for best absorption: dairy products, olive oil, avocados will work for this. Pending Studies at Discharge: No Stand-Alone Forms: My [facility] [employer], Smoking Cessation Medications and DC Order Prescriptions: New spironolactone 25 mg Tablet 25 mg PO QAM Qty: 30 RF: 0 furosemide [Lasix] 40 mg tablet 60 mg PO DAILY Qty: 60 RF: 0 Continued isosorbide mononitrate 60 mg tablet extended release 24 hr 60 mg PO DAILY Qty: 90 RF: 3 colestipol 1 gram tablet 2 gm PO BID Qty: 360 RF: 3 nitroglycerin 0.4 mg tablet, sublingual 0.4 mg SL Q5M PRN (Reason: chest pain) Qty: 25 RF: 0 aspirin 81 mg tablet 81 mg PO DAILY RF: 0 metformin 500 mg tablet 500 mg PO BID RF: 0 lisinopril 20 mg tablet 20 mg PO BID RF: 0 allopurinol 300 mg tablet 300 mg PO DAILY RF: 0 PreserVision AREDS [id number] capsule 1 cap PO BID RF: 0 Centrum Silver Men 300-600-300 mcg tablet 1 tab PO DAILY RF: 0 triamterene-hydrochlorothiazid 37.5-25 mg tablet 1 tab PO DAILY RF: 0 omega 5-rnu-mks-fish oil [Fish Oil] 1,000 mg (120 mg-180 mg) capsule 1 cap PO DAILY RF: 0 triamcinolone acetonide 0.1 % cream 1 appln TOP DAILY RF: 0 metoprolol succinate 200 mg tablet extended release 24 hr 100 mg PO BID RF: 0 Discharge Orders: Discharge Order (Routine); Ordered 03/12/20 Ordered By: Sudha Moreno/Other Patient Handouts: High Blood Sugar (Hyperglycemia), Hypoglycemia (Low Blood Sugar), Managing Type 2 Diabetes, Managing Diabetes: The A1C Test, Diabetes: Meal Planning Admission Data Admit Date/Time: 03/07/20 16:23 Attending Provider: Sudha Sarmiento Admit Provider: Tony Hammond Other Providers: Tony Hammond ; Stuart Bentley Other Interventions: Discharge Summary Assessment (RN) Last Done: 03/12/20 11:29 DC Date/Time DO NOT enter until pt leaves facility: 03/12/20 14:09 Coding Level of Care Code D/C Day Management >30 mins Diagnoses CIRILO (acute kidney injury) N17.9 Acute congestive heart failure I50.9 Heart failure type: unspecified Hyperlipidemia E78.5 Hypertension I10 Diabetes E11.9 Gout M10.9 Coronary artery disease I25.10 Tinea corporis B35.4 DVT prophylaxis Z29.9
== END 2020-03-12 14:09 | disposition home or self-care (01) | DRG 291 ==
LOC: ED 12:25 → SUATTDRO 16:23 → 2N 16:23

== ENCOUNTER 2020-03-29 21:42 | Inpatient (IN) ==
[2020-03-29] MEDS ORDERED: INSULIN HUMAN REGULAR PER UNIT 10 UNITS in SYRINGE 9.9 ML IV STA (22:05)
[2020-03-29] MEDS ORDERED: CALCIUM GLUCONATE 10% 2,000 MG in SODIUM CHLORIDE 0.9% 50 ML IV STA (22:05)
[2020-03-29] MEDS ORDERED: SODIUM CHLORIDE 0.9% 500 ML IV ONE ×2 (22:05→23:49)
[2020-03-29] MEDS ORDERED: SODIUM POLYSTYRENE SULFONATE 15G/60ML SUSP PO STA ×2 (22:05→23:28)
[2020-03-29] MEDS ORDERED: DEXTROSE 50% 50 ML SYRINGE IV STA (22:05)
[2020-03-29 22:11] LABS: Basophils # (auto) 0.01 K/uL (0-0.2); Basophils % (auto) 0.1 %; Eosinophils # (auto) 0.07 K/uL (0-0.5); Eosinophils % (auto) 0.6 %; Hemoglobin 14.1 g/dL (14.0-18.0); Immature Granulocytes # (auto) 0.03 K/uL (0.00-0.02); Immature Granulocytes % (auto) 0.3 %; Lymphocytes # (auto) 1.07 K/uL (1.2-3.4); Mean Corpuscular Hemoglobin 30.7 pg (25-34); Mean Corpuscular Hgb Conc 34.4 g/dL (32-36); Mean Corpuscular Volume 89.1 fL (80-100); Mean Platelet Volume 11.3 fL (7.4-10.4); Monocytes # (auto) 0.84 K/uL (0.11-0.59); Monocytes % (auto) 7.1 %; Neutrophils # (auto) 9.81 K/uL (1.4-6.5); Neutrophils % (auto) 82.9 %; Platelet Count 201 K/uL (130-400); RDW Coefficient of Variation 14.7 % (11.5-14.5); RDW Standard Deviation 47.5 fL (36.4-46.3); White Blood Count 11.83 K/uL (4.8-10.8)
[2020-03-29 22:15] LABS: iSTAT Creatinine 4.1 mg/dl (0.6-1.3); iSTAT Hemoglobin 14.6 g/dl (14.0-18.0); iSTAT Ionized Calcium 1.23 mmol/l (1.12-1.32); iSTAT Potassium 7.3 mmol/L (3.3-5.0)
[2020-03-29 22:23] LABS: Partial Thromboplastin Ratio 0.9; Partial Thromboplastin Time 25.9 Seconds (21.0-31.0); Prothrombin Time 10.5 Seconds (9.0-12.0)
[2020-03-29 22:34] LABS: HCO3 VBG 19 mmol/L; PCO2 VBG 40 mmHg (38-50); PO2 VBG 30 mmHg; pH VBG 7.29 (7.36-7.41)
[2020-03-29 22:40] LABS: Oxygen Saturation VBG < 60.0 %
[2020-03-29 22:41] LABS: Alanine Aminotransferase 17 U/L (12-78); Albumin Level 3.7 gm/dl (3.4-5.0); Alkaline Phosphatase 84 U/L (45-117); Aspartate Aminotransferase 9 U/L (15-37); Bilirubin Direct 0.1 mg/dl (0-0.2); Bilirubin,Total 0.5 mg/dl (0.2-1); Blood Urea Nitrogen 93 mg/dl (7-18); Calcium 9.3 mg/dl (8.5-10.1); Carbon Dioxide 18 mmol/L (21-32); Chloride 103 mmol/L (98-107); Est GFR (African American) 17.2; Est GFR (Non-African American) 14.9; Globulin 3.5 gm/dl (2.5-4.0); Glucose 123 mg/dl (70-99); Lipase 732 U/L (73-393); Magnesium 2.9 mg/dl (1.8-2.4); NT Pro B Type Natriuretic Pept 4493 pg/ml (0-1800); Phosphorus 5.6 mg/dl (2.5-4.9); Potassium 7.2 mmol/L (3.5-5.1); Sodium 129 mmol/L (136-145); Total Protein 7.2 gm/dl (6.4-8.2); Troponin I < 0.015 ng/ml (0-0.045)
[2020-03-29 22:47] LABS: Appearance Urine Clear (Clear); Bacteria Urine Automated Negative (Negative); Bilirubin Urine Negative (Negative); Blood Urine 3+ (Negative); Color Urine Yellow; Epithelial Cell Urine Auto 0-5 /lpf (0-5); Glucose Urine UA Negative (Negative); Ketones Urine Negative (Negative); Leukocyte Esterase Urine Negative (Negative); Nitrite Urine Negative (Negative); Protein Urine Negative (Negative); RBC Urine Automated >30 /hpf (0-4); Specific Gravity Urine 1.015 (1.000-1.030); Urobilinogen Urine Negative (Negative)
--- NOTE | 2020-03-29 22:55 | Emergency Department Note ---
Impression & Plan Complete heart block, Acute hyperkalemia, Acute on chronic kidney failure, Metabolic acidosis ED Provider Note NAME: LATANYA ASHLEY AGE: 75 SEX: M ARRIVES VIA: Ambulance INFORMANT: Patient, ED PROVIDER(S): Daryl Johnson MD CHIEF COMPLAINT: Symptomatic bradycardia PLAN: Disposition: Admit MEDICAL DECISION MAKING: The patient is a pleasant 75-year-old gentleman with a past medical history of CHF, CAD, CKD who presents emergency department with symptomatic bradycardia found by EMS to have heart rate in the 30s with transmitted twelve-lead showing wide-complex bradycardia with no discernible P waves, with blood pressure systolic blood pressure in the 80s though the patient was mentating. The patient's symptoms occurred in the setting of feeling as though he has had had an upset stomach with nausea and decreased appetite over the past week in the setting of being started on spironolactone in addition to his Lasix on recent admission at the beginning of March. Patient reports he has been diuresing accordingly with these diuretics. Upon med command call the patient was given atropine per my order with subsequent improvement in his heart rate to the 40s and improvement in blood pressure, systolic 100s. On arrival the patient is ill-appearing but no acute distress, afebrile stable vital signs. EKG on a rrival does show white complex bradycardia with likely complete heart block though not all P waves are discernible but AL interval is variable. I-STAT chemistry shows acute on chronic renal failure with creatinine of 4 and potassium of 7. Patient was ordered for calcium, insulin. Kayexalate also was ordered and completion of CT of the abdomen pelvis. I did review the case with Dr. Lopez, [place] cardiology on-call and agrees with plan for reversal of patient's renal failure and hyperkalemia which would be expected to resolve his bradycardia and given that the patient is stabilizing we agree no indication for emergent transvenous pacing at this time. WBC 11.8, nonspecific. Hemoglobin within normal limits. Platelets within normal limits. Chemistry with mild metabolic acidosis with bicarb of 18 with VBG with pH of 7.29. Creatinine is 3.7 increased from patient's baseline of 1.5. BUN is 93 from baseline of 20-40. Opponent is negative/undetectable. BNP 4400 in the setting of the patient's acute on chronic renal failure. UA without evidence of infection. CT and pelvis was negative for acute process. Kayexalate was administered. Repeat iStat chemistry with potassium improving to 6.4 and Cr. 3.3. BP Stable though bradycardia persisting. Case was discussed with Dr. Sharp, [facility] [place] hospitalist, who will evaluate the patient for admission. Lyme screen subsequently positive for IgM AB. Patient is unsure of how he would be exposed to Ticks as he does not have pets or go outdoors. Treatment per admitting team who are aware. Triage Nursing notes reviewed and agree them. Prior medical records reviewed Vital Signs: reviewed and remarkable for no significant abnormalities Differential diagnosis: Vasovagal event, dehydration, infection, hypoglycemia, electrolyte abnormalities, cardiac sources, intracerebral event, pulmonary embolism, seizure, toxicologic, neurologic, as well as other pathologies. ER treatment provided: See below. Diagnostics interpreted by me: ECG: Wide complex bradycardia, 43 bpm, no ectopy, suspected complete heart block, no overt ST elevation or depression. Cardiac Monitoring: An order for continuous cardiac monitoring was placed and demonstrated wide-complex bradycardia, 43 bpm, suspected complete heart block Laboratory studies: See below Imaging studies: CXR: Mild venous congestion no focal infiltrates. STATRAD: Preliminary Findings Only See Final Report For Complete Findings CT ABDOMEN & PELVIS Without Contrast: Impression: No evidence of small bowel obstruction or other acute abnormality in the abdomen and pelvis on noncontrast examination. No renal or ureteral calculi. Urinary bladder is decompressed by Sam catheter. Sigmoid colon diverticulosis without evidence of acute diverticulitis. Enlarged prostate gland. Degenerative changes seen in the spine. Radiologist: Jose Carlos Ryan MD Study ready at 23:18 and initial results transmitted at 23:23 Consultation(s): Dr. Bentley [place] [facility]iology on-call. HPI: The patient is a pleasant 75-year-old gentleman with a past medical history of CHF, CAD, CKD who presents emergency department with symptomatic bradycardia found by EMS to have heart rate in the 30s with transmitted twelve-lead showing wide-complex bradycardia with no discernible P waves, with blood pressure systolic blood pressure in the 80s though the patient was mentating. The patient's symptoms occurred in the setting of feeling as though he has had had an upset stomach with nausea and decreased appetite over the past week in the setting of being started on spironolactone in addition to his Lasix on recent admission at the beginning of March. Patient reports he has been diuresing accordingly with these diuretics. Upon med command call the patient was given atropine per my order with subsequent improvement in his heart rate to the 40s and improvement in blood pressure to the 100s systolic. ROS: See above HPI for pertinent positives & negatives. A total of 10 systems reviewed and were otherwise negative. PAST MEDICAL HISTORY:See Below PAST SURGICAL HISTORY:See Below FAMILY HISTORY:See Below SOCIAL HISTORY:See Below HOME MEDICATIONS:See Below ALLERGIES:See Below VITALS:See Below PHYSICAL EXAMINATION: GENERAL: Awake, alert, ill-appearing, in no distress HENT: Normocephalic, atraumatic. Oropharynx with dry mucous membranes and otherwise unremarkable. EYES: Normal conjunctiva. Sclera non-icteric. NECK: Supple. No nuchal rigidity. FROM. No JVD. RESPIRATORY: Clear to auscultation. CARDIAC: Bradycardia rate, regular rhythm. Extremities warm and well perfused. Pulses equal. ABDOMEN: Soft, non-distended. No tenderness to palpation. No rebound or guarding. No masses. RECTAL: Deferred. MUSCULOSKELETAL: Chest examination reveals no tenderness. The back is symmetrical on inspection without obvious abnormality. There is no CVA tenderness to palpation. No joint edema. LOWER EXTREMITIES: Calves are equal size bilaterally and non-tender. Scant BLE edema. No discoloration. NEURO: Normal sensorium. No sensory or motor deficits noted. SKIN: No rash or jaundice noted. ED COURSE: Critical Care: I have personally spent greater than 105 minutes of critical care time in the direct management of this patient. This includes bedside care, interpretation of diagnostic studies, and testing, discussion with consultants, patient, and family members, and other required patient management activities. This 105 minutes is in excess of all separately billable procedures. Daryl Johnson MD Past Med/Surg History Medical History Arthritis of Back and Knees Bronchitis Coronary artery disease Hyperlipidemia Hypertension Past heart attack Pulmonary embolism Type 2 diabetes mellitus Surgical History History of prostate biopsy S/P coronary artery stent placement Family History Family/Other Prostate cancer Father Heart disease Mother Bone cancer Sister Colon cancer Social History Smoking Status: Never smoker Second Hand Exposure: No; Do You Dip or Chew Tobacco: No; Tobacco Cessation Education Requested by Patient: No Hx Alcohol Use: No Hx Substance Use: No Preferred Language: Kyrgyz Communication Ability: Effective Grades 1 Through 6 Teacher Required: No Beliefs That Will Affect Care: None marital status: Single Current Living Situation: Alone current occupational status: retired Other Information That Helps Us Care for You: No Feels Safe at Home: Yes Safety Concerns: Feels Safe At This Time Diet Comment: Has special diet unsure what kind Allergies Allergies Allergy/AdvReac Type Severity Reaction Status Date / Time Ukfceae-Dir-Gof Reductase AdvReac Intermediate MYALGIAS Verified 03/17/20 14:23 Inhibitor Home Meds Home Medications Medication Instructions Recorded Confirmed allopurinol 300 mg tablet 300 mg PO DAILY tab 05/11/19 03/29/20 aspirin 81 mg tablet 81 mg PO DAILY tab 05/11/19 03/29/20 lisinopril 20 mg tablet 20 mg PO BID tab 05/11/19 03/29/20 metformin 500 mg tablet 500 mg PO BID tab 05/11/19 03/29/20 vmabufmb-zjy-mjdus acid 300 1 tab PO DAILY 05/11/19 03/29/20 mcg-lycopene 600 mcg-lutein 300 mcg tablet nitroglycerin 0.4 mg sublingual 0.4 mg SL Q5M PRN #25 tab 05/11/19 03/29/20 tablet vitamins A,C,I-iqlu-oyzmam 14,320 1 cap PO BID 05/11/19 03/29/20 unit-226 mg-200 unit capsule omega 3-ruy-klv-fish oil 1,000 mg 1 cap PO DAILY 05/20/19 03/29/20 (120 mg-180 mg) capsule triamterene 37.5 1 tab PO DAILY tab 01/05/20 03/29/20 mg-hydrochlorothiazide 25 mg tablet clotrimazole 1 % topical cream 1 appln TOP BID PRN 03/17/20 03/29/20 metoprolol succinate 200 mg 200 mg PO DAILY tab 03/17/20 03/29/20 tablet,extended release 24 hr triamcinolone acetonide 55 mcg 1 sprays INTNAS DAILY 03/17/20 03/29/20 nasal spray aerosol turmeric root extract 500 mg 1,000 mg PO DAILY cap 03/17/20 03/29/20 capsule Previous Rx's Medication Instructions Recorded isosorbide mononitrate 60 mg 60 mg PO DAILY #90 tab 10/08/19 tablet,extended release 24 hr colestipol 1 gram tablet 2 gm PO BID #360 tab 11/10/19 furosemide 40 mg tablet 40 mg PO DAILY #90 tab 03/17/20 spironolactone 25 mg tablet 25 mg PO QAM #90 tab 03/17/20 Results & Data (ED) Vital Signs Vital Signs - 24 hr 03/29/20 21:51 03/29/20 22:45 03/29/20 22:50 Temperature 36.8 C Temperature Source Oral Pulse Rate 42 L 37 L 43 L Pulse Rate from SpO2 Sensor Respiratory Rate 20 Blood Pressure 102/59 L Blood Pressure Mean 73 Blood Pressure Position Sitting Pulse Oximetry 97 96 Oxygen Delivery Method Room Air Room Air Sepsis Recent Fever Within 48 Hours No Sepsis New/Unexplained Change in Mental Status No Sepsis Action Taken by Nursing No Action Required 03/29/20 23:11 03/29/20 23:12 03/29/20 23:13 Temperature Temperature Source Pulse Rate 44 L 46 L 46 L Pulse Rate from SpO2 Sensor 43 L 43 L 46 L Respiratory Rate 14 Blood Pressure 91/54 L Blood Pressure Mean 68 Blood Pressure Position Pulse Oximetry 99 99 98 Oxygen Delivery Method Room Air Room Air Sepsis Recent Fever Within 48 Hours Sepsis New/Unexplained Change in Mental Status Sepsis Action Taken by Nursing 03/29/20 23:15 03/29/20 23:16 03/29/20 23:17 Temperature Temperature Source Pulse Rate 45 L 42 L 50 L Pulse Rate from SpO2 Sensor 43 L 46 L Respiratory Rate 15 16 15 Blood Pressure 98/49 L Blood Pressure Mean 62 Blood Pressure Position Pulse Oximetry 98 98 97 Oxygen Delivery Method Room Air Sepsis Recent Fever Within 48 Hours Sepsis New/Unexplained Change in Mental Status Sepsis Action Taken by Nursing 03/29/20 23:30 03/29/20 23:31 03/29/20 23:45 Temperature Temperature Source Pulse Rate 34 L 46 L 43 L Pulse Rate from SpO2 Sensor Respiratory Rate 14 16 14 Blood Pressure 122/53 L Blood Pressure Mean 79 Blood Pressure Position Pulse Oximetry 94 96 95 Oxygen Delivery Method Room Air Room Air Room Air Sepsis Recent Fever Within 48 Hours Sepsis New/Unexplained Change in Mental Status Sepsis Action Taken by Nursing 03/29/20 23:47 03/29/20 23:48 03/30/20 00:00 Temperature Temperature Source Pulse Rate 41 L 37 L 37 L Pulse Rate from SpO2 Sensor Respiratory Rate 13 14 16 Blood Pressure 104/44 L 134/66 Blood Pressure Mean 82 72 Blood Pressure Position Pulse Oximetry 97 94 96 Oxygen Delivery Method Room Air Room Air Room Air Sepsis Recent Fever Within 48 Hours Sepsis New/Unexplained Change in Mental Status Sepsis Action Taken by Nursing 03/30/20 00:01 03/30/20 00:15 03/30/20 00:27 Temperature Temperature Source Pulse Rate 39 L 40 L 42 L Pulse Rate from SpO2 Sensor Respiratory Rate 12 14 12 Blood Pressure 122/50 L Blood Pressure Mean 74 Blood Pressure Position Pulse Oximetry 98 98 96 Oxygen Delivery Method Room Air Room Air Sepsis Recent Fever Within 48 Hours Sepsis New/Unexplained Change in Mental Status Sepsis Action Taken by Nursing 03/30/20 00:28 03/30/20 00:30 03/30/20 00:31 Temperature Temperature Source Pulse Rate 33 L 39 L 35 L Pulse Rate from SpO2 Sensor Respiratory Rate 13 18 12 Blood Pressure 135/54 L Blood Pressure Mean 75 Blood Pressure Position Pulse Oximetry 96 98 Oxygen Delivery Method Room Air Room Air Sepsis Recent Fever Within 48 Hours Sepsis New/Unexplained Change in Mental Status Sepsis Action Taken by Nursing 03/30/20 00:45 03/30/20 00:46 03/30/20 00:47 Temperature Temperature Source Pulse Rate 39 L 42 L 48 L Pulse Rate from SpO2 Sensor Respiratory Rate 14 13 16 Blood Pressure 96/46 L Blood Pressure Mean 67 Blood Pressure Position Pulse Oximetry 94 93 96 Oxygen Delivery Method Room Air Room Air Room Air Sepsis Recent Fever Within 48 Hours Sepsis New/Unexplained Change in Mental Status Sepsis Action Taken by Nursing 03/30/20 01:00 03/30/20 01:01 03/30/20 01:02 Temperature Temperature Source Pulse Rate 42 L 35 L 38 L Pulse Rate from SpO2 Sensor Respiratory Rate 14 14 14 Blood Pressure 101/40 L Blood Pressure Mean 66 Blood Pressure Position Pulse Oximetry 98 98 100 Oxygen Delivery Method Room Air Room Air Room Air Sepsis Recent Fever Within 48 Hours Sepsis New/Unexplained Change in Mental Status Sepsis Action Taken by Nursing 03/30/20 01:15 03/30/20 01:25 03/30/20 01:30 Temperature Temperature Source Pulse Rate 37 L 43 L 43 L Pulse Rate from SpO2 Sensor Respiratory Rate 14 13 16 Blood Pressure 98/47 L Blood Pressure Mean 58 Blood Pressure Position Pulse Oximetry 94 94 Oxygen Delivery Method Room Air Sepsis Recent Fever Within 48 Hours Sepsis New/Unexplained Change in Mental Status Sepsis Action Taken by Nursing Laboratory Data Attestation: I reviewed the patient's lab results. Result diagrams: 03/29/20 21:55 03/29/20 21:55 Lab Results 03/29/20 03/29/20 03/29/20 Range/Units 21:55 21:55 21:55 WBC 11.83 H (4.8-10.8) K/uL RBC 4.60 L (4.7-6.1) M/uL Hgb 14.1 (14.0-18.0) g/dL POC Hgb (14.0-18.0) g/dl Hct 41.0 L (42-52) % POC Hct (42-52) % MCV 89.1 (80-100) fL MCH 30.7 (25-34) pg MCHC 34.4 (32-36) g/dL RDW Std Deviation 47.5 H (36.4-46.3) fL RDW Coeff of Jeff 14.7 H (11.5-14.5) % Plt Count 201 (130-400) K/uL MPV 11.3 H (7.4-10.4) fL Immature Gran % (Auto) 0.3 % Neut % (Auto) 82.9 % Lymph % (Auto) 9.0 % [place] % (Auto) 7.1 % Eos % (Auto) 0.6 % Baso % (Auto) 0.1 % Neut # (Auto) 9.81 H (1.4-6.5) K/uL Lymph # (Auto) 1.07 L (1.2-3.4) K/uL [place] # (Auto) 0.84 H (0.11-0.59) K/uL Eos # (Auto) 0.07 (0-0.5) K/uL Baso # (Auto) 0.01 (0-0.2) K/uL Immature Gran # (Auto) 0.03 H (0.00-0.02) K/uL PT 10.5 (9.0-12.0) Seconds INR 1.0 (0.9-1.1) APTT 25.9 (21.0-31.0) Seconds PTT Ratio 0.9 VBG pH (7.36-7.41) VBG pCO2 (38-50) mmHg VBG pO2 mmHg VBG HCO3 mmol/L VBG O2 Saturation % VBG Base Excess mEq/L POC Sodium (135-144) mmol/L Sodium 129 L (136-145) mmol/L POC Potassium (3.3-5.0) mmol/L Potassium 7.2 H* (3.5-5.1) mmol/L POC Chloride (101-112) mmol/L Chloride 103 (98-107) mmol/L Carbon Dioxide 18 L (21-32) mmol/L POC Total CO2 (24-31) mmol/L Anion Gap 8.0 (3-11) POC Anion Gap (16-25) mmol/L POC BUN (7-18) mg/dl BUN 93 H (7-18) mg/dl Creatinine 3.72 H (0.6-1.4) mg/dl POC Creatinine (0.6-1.3) mg/dl Est Cr Clr Drug Dosing 23.0 ml/min Est GFR ( Amer) 17.2 Est GFR (Non-Af Amer) 14.9 BUN/Creatinine Ratio 25.0 H (10-20) Glucose 123 H (70-99) mg/dl POC Glucose (other) (70-99) mg/dl Calcium 9.3 (8.5-10.1) mg/dl POC Ioniz Calcium Daniel (1.12-1.32) mmol/l Phosphorus 5.6 H (2.5-4.9) mg/dl Magnesium 2.9 H (1.8-2.4) mg/dl Total Bilirubin 0.5 (0.2-1) mg/dl Direct Bilirubin 0.1 (0-0.2) mg/dl AST 9 L (15-37) U/L ALT 17 (12-78) U/L Alkaline Phosphatase 84 (45-117) U/L Troponin I < 0.015 (0-0.045) ng/ml NT-Pro-B Natriuret Pep 4493 H (0-1800) pg/ml Total Protein 7.2 (6.4-8.2) gm/dl Albumin 3.7 (3.4-5.0) gm/dl Globulin 3.5 (2.5-4.0) gm/dl Albumin/Globulin Ratio 1.0 (0.9-2) Lipase 732 H (73-393) U/L TSH 3.870 (0.300-4.500) uIu/ml Urine Color Urine Appearance (Clear) Urine pH (4.5-7.5) Ur Specific [place] (1.000-1.030) Urine Protein (Negative) Urine Glucose (UA) (Negative) Urine Ketones (Negative) Urine Blood (Negative) Urine Nitrite (Negative) Urine Bilirubin (Negative) Urine Urobilinogen (Negative) Ur Leukocyte Esterase (Negative) Urine WBC (Auto) (0-5) /hpf Urine RBC (Auto) (0-4) /hpf U Hyaline Cast (Auto) (0-5) /lpf U Epithel Cells (Auto) (0-5) /lpf Urine Bacteria (Auto) (Negative) Lyme Disease IgG Ab (Negative) Lyme Disease IgM Ab (Negative) 03/29/20 03/29/20 03/29/20 Range/Units 21:55 22:01 22:19 WBC (4.8-10.8) K/uL RBC (4.7-6.1) M/uL Hgb (14.0-18.0) g/dL POC Hgb 14.6 (14.0-18.0) g/dl Hct (42-52) % POC Hct 43 (42-52) % MCV (80-100) fL MCH (25-34) pg MCHC (32-36) g/dL RDW Std Deviation (36.4-46.3) fL RDW Coeff of Jeff (11.5-14.5) % Plt Count (130-400) K/uL MPV (7.4-10.4) fL Immature Gran % (Auto) % Neut % (Auto) % Lymph % (Auto) % [place] % (Auto) % Eos % (Auto) % Baso % (Auto) % Neut # (Auto) (1.4-6.5) K/uL Lymph # (Auto) (1.2-3.4) K/uL [place] # (Auto) (0.11-0.59) K/uL Eos # (Auto) (0-0.5) K/uL Baso # (Auto) (0-0.2) K/uL Immature Gran # (Auto) (0.00-0.02) K/uL PT (9.0-12.0) Seconds INR (0.9-1.1) APTT (21.0-31.0) Seconds PTT Ratio VBG pH 7.29 L (7.36-7.41) VBG pCO2 40 (38-50) mmHg VBG pO2 30 mmHg VBG HCO3 19 mmol/L VBG O2 Saturation < 60.0 % VBG Base Excess -7.0 mEq/L POC Sodium 129 L (135-144) mmol/L Sodium (136-145) mmol/L POC Potassium 7.3 H* (3.3-5.0) mmol/L Potassium (3.5-5.1) mmol/L POC Chloride 104 (101-112) mmol/L Chloride (98-107) mmol/L Carbon Dioxide (21-32) mmol/L POC Total CO2 18 L (24-31) mmol/L Anion Gap (3-11) POC Anion Gap 16.0 (16-25) mmol/L POC BUN 104 H* (7-18) mg/dl BUN (7-18) mg/dl Creatinine (0.6-1.4) mg/dl POC Creatinine 4.1 H (0.6-1.3) mg/dl Est Cr Clr Drug Dosing ml/min Est GFR ( Amer) Est GFR (Non-Af Amer) BUN/Creatinine Ratio (10-20) Glucose (70-99) mg/dl POC Glucose (other) 124 H (70-99) mg/dl Calcium (8.5-10.1) mg/dl POC Ioniz Calcium Daniel 1.23 (1.12-1.32) mmol/l Phosphorus (2.5-4.9) mg/dl Magnesium (1.8-2.4) mg/dl Total Bilirubin (0.2-1) mg/dl Direct Bilirubin (0-0.2) mg/dl AST (15-37) U/L ALT (12-78) U/L Alkaline Phosphatase (45-117) U/L Troponin I (0-0.045) ng/ml NT-Pro-B Natriuret Pep (0-1800) pg/ml Total Protein (6.4-8.2) gm/dl Albumin (3.4-5.0) gm/dl Globulin (2.5-4.0) gm/dl Albumin/Globulin Ratio (0.9-2) Lipase (73-393) U/L TSH (0.300-4.500) uIu/ml Urine Color Urine Appearance (Clear) Urine pH (4.5-7.5) Ur Specific [place] (1.000-1.030) Urine Protein (Negative) Urine Glucose (UA) (Negative) Urine Ketones (Negative) Urine Blood (Negative) Urine Nitrite (Negative) Urine Bilirubin (Negative) Urine Urobilinogen (Negative) Ur Leukocyte Esterase (Negative) Urine WBC (Auto) (0-5) /hpf Urine RBC (Auto) (0-4) /hpf U Hyaline Cast (Auto) (0-5) /lpf U Epithel Cells (Auto) (0-5) /lpf Urine Bacteria (Auto) (Negative) Lyme Disease IgG Ab Negative (Negative) Lyme Disease IgM Ab Positive A (Negative) 03/29/20 03/29/20 Range/Units 22:30 23:45 WBC (4.8-10.8) K/uL RBC (4.7-6.1) M/uL Hgb (14.0-18.0) g/dL POC Hgb 12.9 L (14.0-18.0) g/dl Hct (42-52) % POC Hct 38 L (42-52) % MCV (80-100) fL MCH (25-34) pg MCHC (32-36) g/dL RDW Std Deviation (36.4-46.3) fL RDW Coeff of Jeff (11.5-14.5) % Plt Count (130-400) K/uL MPV (7.4-10.4) fL Immature Gran % (Auto) % Neut % (Auto) % Lymph % (Auto) % [place] % (Auto) % Eos % (Auto) % Baso % (Auto) % Neut # (Auto) (1.4-6.5) K/uL Lymph # (Auto) (1.2-3.4) K/uL [place] # (Auto) (0.11-0.59) K/uL Eos # (Auto) (0-0.5) K/uL Baso # (Auto) (0-0.2) K/uL Immature Gran # (Auto) (0.00-0.02) K/uL PT (9.0-12.0) Seconds INR (0.9-1.1) APTT (21.0-31.0) Seconds PTT Ratio VBG pH (7.36-7.41) VBG pCO2 (38-50) mmHg VBG pO2 mmHg VBG HCO3 mmol/L VBG O2 Saturation % VBG Base Excess mEq/L POC Sodium 132 L (135-144) mmol/L Sodium (136-145) mmol/L POC Potassium 6.4 H* (3.3-5.0) mmol/L Potassium (3.5-5.1) mmol/L POC Chloride 106 (101-112) mmol/L Chloride (98-107) mmol/L Carbon Dioxide (21-32) mmol/L POC Total CO2 17 L (24-31) mmol/L Anion Gap (3-11) POC Anion Gap 16.0 (16-25) mmol/L POC BUN 96 H (7-18) mg/dl BUN (7-18) mg/dl Creatinine (0.6-1.4) mg/dl POC Creatinine 3.3 H (0.6-1.3) mg/dl Est Cr Clr Drug Dosing ml/min Est GFR ( Amer) Est GFR (Non-Af Amer) BUN/Creatinine Ratio (10-20) Glucose (70-99) mg/dl POC Glucose (other) 189 H (70-99) mg/dl Calcium (8.5-10.1) mg/dl POC Ioniz Calcium Daniel 1.18 (1.12-1.32) mmol/l Phosphorus (2.5-4.9) mg/dl Magnesium (1.8-2.4) mg/dl Total Bilirubin (0.2-1) mg/dl Direct Bilirubin (0-0.2) mg/dl AST (15-37) U/L ALT (12-78) U/L Alkaline Phosphatase (45-117) U/L Troponin I (0-0.045) ng/ml NT-Pro-B Natriuret Pep (0-1800) pg/ml Total Protein (6.4-8.2) gm/dl Albumin (3.4-5.0) gm/dl Globulin (2.5-4.0) gm/dl Albumin/Globulin Ratio (0.9-2) Lipase (73-393) U/L TSH (0.300-4.500) uIu/ml Urine Color Yellow Urine Appearance Clear (Clear) Urine pH 5.0 (4.5-7.5) Ur Specific [place] 1.015 (1.000-1.030) Urine Protein Negative (Negative) Urine Glucose (UA) Negative (Negative) Urine Ketones Negative (Negative) Urine Blood 3+ H (Negative) Urine Nitrite Negative (Negative) Urine Bilirubin Negative (Negative) Urine Urobilinogen Negative (Negative) Ur Leukocyte Esterase Negative (Negative) Urine WBC (Auto) 1-5 (0-5) /hpf Urine RBC (Auto) >30 H (0-4) /hpf U Hyaline Cast (Auto) 1-5 (0-5) /lpf U Epithel Cells (Auto) 0-5 (0-5) /lpf Urine Bacteria (Auto) Negative (Negative) Lyme Disease IgG Ab (Negative) Lyme Disease IgM Ab (Negative) Administered Medications Sodium Chloride (Nss 1000ml) 1,000 mls @ 125 mls/hr IV .Q8H [place] Stop: 04/29/20 01:53 Last Admin: 03/30/20 02:37 Dose: 125 mls/hr Documented by: [id number] Discontinued Medications Dextrose (Dextrose 50%) 100 ml IV NOW STA Stop: 03/29/20 22:06 Last Admin: 03/29/20 22:26 Dose: 100 ml Documented by: [id number] Calcium Gluconate 2,000 mg/ (Sodium Chloride) 70 mls @ 240 mls/hr IV NOW STA Stop: 03/29/20 22:19 Last Infusion: 03/29/20 22:53 Dose: 0 mls/hr Documented by: [id number] Admin: 03/29/20 22:32 Dose: 240 mls/hr Documented by: [id number] Insulin Human Regular 10 units (/ Syringe) 9.9 mls @ 3 mls/sec IV ONE STA Stop: 03/29/20 22:06 Last Admin: 03/29/20 22:52 Dose: 3 mls/sec Documented by: [id number] Cosigned by: [id number] Sodium Chloride (Nss) 500 mls @ 999 mls/hr IV .Q31M ONE Stop: 03/29/20 22:35 Last Infusion: 03/29/20 23:13 Dose: 0 mls/hr Documented by: [id number] Admin: 03/29/20 22:25 Dose: 999 mls/hr Documented by: [id number] Sodium Chloride (Nss) 500 mls @ 125 mls/hr IV .Q4H [place] Stop: 04/28/20 23:14 Last Infusion: 03/30/20 00:26 Dose: 125 mls/hr Documented by: [id number] Infusion: 03/29/20 23:50 Dose: 0 mls/hr Documented by: [id number] Admin: 03/29/20 23:18 Dose: 125 mls/hr Documented by: [id number] Sodium Chloride (Nss) 500 mls @ 999 mls/hr IV .Q31M ONE Stop: 03/30/20 00:19 Last Infusion: 03/30/20 00:26 Dose: 0 mls/hr Documented by: [id number] Admin: 03/29/20 23:50 Dose: 999 mls/hr Documented by: [id number] Sodium Polystyrene Sulfonate (Kayexalate) 15 gm PO NOW STA Stop: 03/29/20 22:06 Last Admin: 03/29/20 23:35 Dose: 15 gm Documented by: [id number] Sodium Polystyrene Sulfonate (Kayexalate) 15 gm PO NOW STA Stop: 03/29/20 23:29 Last Admin: 03/29/20 23:35 Dose: 15 gm Documented by: [id number] Blood Pressure Blood Pressure Findings: Low blood pressure Blood Pressure Disposition: further management by hospitalist Discharge Plan Visit Data *Final* Discharge Date/Time: 03/30/20 01:48 Chief Complaint: Bradycardia ED Provider: Daryl Johnson Discharge Problem: Complete heart block, Acute hyperkalemia, Acute on chronic kidney failure, Metabolic acidosis Patient Disposition: Admitted As Inpatient Discharge Instructions Interventions: ED Discharge Assessment Last Done: 03/30/20 01:48
[2020-03-29 23:12] LABS: Lyme Ab IgG w/WB Rflx Negative (Negative)
[2020-03-29 23:13] LABS: Lyme Ab IgM w/WB Rflx Positive (Negative)
[2020-03-29] MEDS ORDERED: SODIUM CHLORIDE 0.9% 500 ML IV SCH (23:15)
[2020-03-29 23:57] LABS: iSTAT Creatinine 3.3 mg/dl (0.6-1.3); iSTAT Hemoglobin 12.9 g/dl (14.0-18.0); iSTAT Ionized Calcium 1.18 mmol/l (1.12-1.32); iSTAT Potassium 6.4 mmol/L (3.3-5.0)
--- NOTE | 2020-03-30 01:00 | History & Physical Report ---
Date of Service March 30, 2020 Assessment & Plan (1) Bradycardia: 75-year-old male with past medical history hypertension, dyslipidemia, CHF, coronary artery disease, type 2 diabetes mellitus, gout presents with concern of low heart rate found to have hyperkalemia worsening renal function. Bradycardia/hyperkalemia Admit to PCU telemetry EKG: Wide-complex bradycardia with no discernible P waves. Suspect complete heart block. Will repeat EKG daily In the setting of starting spironolactone 25 mg and decreasing Lasix from 60 mg to 40 mg recently. We will hold spironolactone and additionally Lasix given worsening renal function Potassium 7.2 on admit. S/P IV calcium gluconate 2 g, IV insulin 10 units and dextrose, p.o. Kayexalate 15 g x 2 with improvement to 6.6. Will repeat this regimen again with next BMP resulting in the AM We will trend BMP every 4 hour Case was discussed with Dr. Bentley of cardiology. Plan to correct patient's renal failure and hyperkalemia with expectation that this will resolve his bradycardia. No indication for emergent transvenous pacing at this time Appreciate cardiology consult. Consideration for pacer Lyme serology pending. Lyme IgM antibody positive so far, which could explain his heart block. Will treat with IV Rocephin and p.o. doxy 100 mg twice daily for any other possible tick borne diseases as serologies result CIRILO Creatinine 3.72 on admit. Baseline ~1.5. Patient is not a dialysis patient In setting of overdiuresis -IVF NSS@125 mls/hr Holding diuretics as above CAD s/p PCI of mid LAD/dyslipidemia/hypertension/diastolic CHF -Continue aspirin 81 daily. Holding metoprolol succinate, lisinopril, triamterene/HCTZ, ISMN given soft pressures. Holding Lasix and Spironolactone as above -Patient is intolerant to statin therapy. This can be further discussed with lead business systems analyst. Cont Colestipol Ischemic cardiomyopathy Holding SOPHIE inhibitor and beta-ruby as above. Echo from last admission shows LV systolic function only mildly reduced. Entresto not currently indicated with EF greater than 40% DM 2 A1c 6.05 March 2020 Holding home metformin. Placed on SSI Gout Chronic, no acute flare. Continue allopurinol FEN/GI: Sodium 129, potassium 6.4. NSS@125. Heart healthy low-sodium diet DVT prophylaxis: Lovenox 40 mg SQ twice daily (increased dose secondary to morbid obesity) Full Code Dispo: PCU telemetry History of Present Illness Chief Complaint: Bradycardia Primary Care Provider: Sohan Lawler MD 75-year-old male with past medical history hypertension, dyslipidemia, CHF, coronary artery disease, type 2 diabetes mellitus, gout presents with concern of low heart rate and GI upset. Patient notes that he was recently discharged from hospital March 12, 2020 for acute CHF. On discharge he was started on spironolactone 25 mg. Additionally, at follow-up heart failure clinic appointment patient's Lasix was decreased to 40 mg from 60 mg. For the past few days patient notes GI upset with nausea and decreased appetite. He also states that he feels like his heart is going to stop. These symptoms in summation prompted EMS call. EMS noted patient's heart rate to be in the 30s (wide-c omplex bradycardia with no discernible P waves) with systolic BP in 80s. Instructed to give atropine in the field with improvement of heart rate in the 40s and systolic blood pressure in 100s. Pt notes associated loose bowel movements and leg cramping. Patient otherwise denies any fevers, chills, vomiting, chest pain, shortness of breath, palpitations, syncope or near syncope, abdominal pain, known sick contacts or recent travel anywhere. Patient with no other acute concerns or complaints. Pertinent labs: WBC 11.8, sodium 129, potassium 7.2, BUN 93, creatinine 3.72, phosphorus 5.6, magnesium 2.9, BNP 4493, lipase 732, Trop negative EKG: Per my interpretation, wide-complex bradycardia with no discernible P waves. Suspect complete heart block. Chest x-ray: Mild venous congestion with no focal infiltrates Abdominal pelvic CT without contrast: Negative for any acute process ER course: IV calcium gluconate 2 g, IV insulin 10 units and dextrose, p.o. Kayexalate 15 g x 2, NSS 1 L, NSS at 125 Allergies Allergy/AdvReac Type Severity Reaction Status Date / Time Cdzadjv-Ksl-Gdz Reductase AdvReac Intermediate MYALGIAS Verified 03/17/20 14:23 Inhibitor Home Medications Home Medications Medication Instructions Recorded Confirmed Type allopurinol 300 mg tablet 300 mg PO DAILY tab 05/11/19 03/29/20 History aspirin 81 mg tablet 81 mg PO DAILY tab 05/11/19 03/29/20 History lisinopril 20 mg tablet 20 mg PO BID tab 05/11/19 03/29/20 History metformin 500 mg tablet 500 mg PO BID tab 05/11/19 03/29/20 History lhayeetr-dji-ljrvj acid 300 1 tab PO DAILY 05/11/19 03/29/20 History mcg-lycopene 600 mcg-lutein 300 mcg tablet nitroglycerin 0.4 mg sublingual 0.4 mg SL Q5M PRN #25 tab 05/11/19 03/29/20 History tablet vitamins A,C,C-affl-vrubmb 14,320 1 cap PO BID 05/11/19 03/29/20 History unit-226 mg-200 unit capsule omega 7-ves-izc-fish oil 1,000 mg 1 cap PO DAILY 05/20/19 03/29/20 History (120 mg-180 mg) capsule isosorbide mononitrate 60 mg 60 mg PO DAILY #90 tab 10/08/19 03/29/20 Rx tablet,extended release 24 hr colestipol 1 gram tablet 2 gm PO BID #360 tab 11/10/19 03/29/20 Rx triamterene 37.5 1 tab PO DAILY tab 01/05/20 03/29/20 History mg-hydrochlorothiazide 25 mg tablet clotrimazole 1 % topical cream 1 appln TOP BID PRN 03/17/20 03/29/20 History furosemide 40 mg tablet 40 mg PO DAILY #90 tab 03/17/20 03/29/20 Rx metoprolol succinate 200 mg 200 mg PO DAILY tab 03/17/20 03/29/20 History tablet,extended release 24 hr spironolactone 25 mg tablet 25 mg PO QAM #90 tab 03/17/20 03/29/20 Rx triamcinolone acetonide 55 mcg 1 sprays INTNAS DAILY 03/17/20 03/29/20 History nasal spray aerosol turmeric root extract 500 mg 1,000 mg PO DAILY cap 03/17/20 03/29/20 History capsule Past Med/Surg History Medical History Arthritis of Back and Knees Bronchitis Coronary artery disease Hyperlipidemia Hypertension Past heart attack Pulmonary embolism Type 2 diabetes mellitus Surgical History History of prostate biopsy S/P coronary artery stent placement Family History Family/Other Prostate cancer Father Heart disease Mother Bone cancer Sister Colon cancer Social History Smoking Status: Never smoker Second Hand Exposure: No; Do You Dip or Chew Tobacco: No; Tobacco Cessation Education Requested by Patient: No Hx Alcohol Use: No Hx Substance Use: No Preferred Language: [place] Leonean Communication Ability: Effective Strategic Account Executive Required: No Beliefs That Will Affect Care: None marital status: Single Current Living Situation: Alone current occupational status: retired Other Information That Helps Us Care for You: No Feels Safe at Home: Yes Safety Concerns: Feels Safe At This Time Diet Comment: Has special diet unsure what kind Review of Systems Review of Systems: All systems reviewed & are unremarkable except as noted in HPI & below Physical Exam Constitutional: + ill appearing and + obese; no acute distress Eyes: PERRL, conjunctivae normal, anicteric sclerae ENMT: Mouth: + oral mucosal abnormality (Dry) Respiratory: normal respiratory effort, lungs clear to auscultation Cardiovascular: Rate/Rhythm: + bradycardic Gastrointestinal (Abdomen): normal bowel sounds, soft, nontender, no hepat osplenomegaly Percussion/Palpation: no guarding Skin: no rashes, warm and dry Psychiatric: A+Ox3, euthymic affect Genitourinary: Sam in place draining urine Lymphatic: + lymphedema (Trace lower extremity) Results & Data Results & Data ([facility]) Vital Signs (Past 12 Hours) Vital Signs Temp Pulse Resp BP Pulse Ox 03/30/20 00:00 37 L 16 134/66 96 03/29/20 23:48 37 L 14 94 03/29/20 23:47 41 L 13 104/44 L 97 03/29/20 23:45 43 L 14 95 03/29/20 23:31 46 L 16 122/53 L 96 03/29/20 23:30 34 L 14 94 03/29/20 23:17 50 L 15 97 03/29/20 23:16 42 L 16 98/49 L 98 03/29/20 23:15 45 L 15 98 03/29/20 23:13 46 L 14 98 03/29/20 23:12 46 L 91/54 L 99 03/29/20 23:11 44 L 99 03/29/20 22:50 43 L 03/29/20 22:45 37 L 96 03/29/20 21:51 36.8 C 42 L 20 102/59 L 97 Laboratory Results Laboratory Results - last 24 hr 03/29/20 03/29/20 03/29/20 21:55 21:55 21:55 WBC 11.83 H RBC 4.60 L Hgb 14.1 POC Hgb Hct 41.0 L POC Hct MCV 89.1 MCH 30.7 MCHC 34.4 RDW Std Deviation 47.5 H RDW Coeff of Jeff 14.7 H Plt Count 201 MPV 11.3 H Immature Gran % (Auto) 0.3 Neut % (Auto) 82.9 Lymph % (Auto) 9.0 Payne % (Auto) 7.1 Eos % (Auto) 0.6 Baso % (Auto) 0.1 Neut # (Auto) 9.81 H Lymph # (Auto) 1.07 L Payne # (Auto) 0.84 H Eos # (Auto) 0.07 Baso # (Auto) 0.01 Immature Gran # (Auto) 0.03 H PT 10.5 INR 1.0 APTT 25.9 PTT Ratio 0.9 VBG pH VBG pCO2 VBG pO2 VBG HCO3 VBG O2 Saturation VBG Base Excess POC Sodium Sodium 129 L POC Potassium Potassium 7.2 H* POC Chloride Chloride 103 Carbon Dioxide 18 L POC Total CO2 Anion Gap 8.0 POC Anion Gap POC BUN BUN 93 H Creatinine 3.72 H POC Creatinine Est Cr Clr Drug Dosing 23.0 Est GFR ( Amer) 17.2 Est GFR (Non-Af Amer) 14.9 BUN/Creatinine Ratio 25.0 H Glucose 123 H POC Glucose (other) Calcium 9.3 POC Ioniz Calcium Daniel Phosphorus 5.6 H Magnesium 2.9 H Total Bilirubin 0.5 Direct Bilirubin 0.1 AST 9 L ALT 17 Alkaline Phosphatase 84 Troponin I < 0.015 NT-Pro-B Natriuret Pep 4493 H Total Protein 7.2 Albumin 3.7 Globulin 3.5 Albumin/Globulin Ratio 1.0 Lipase 732 H TSH 3.870 Urine Color Urine Appearance Urine pH Ur Specific [place] Urine Protein Urine Glucose (UA) Urine Ketones Urine Blood Urine Nitrite Urine Bilirubin Urine Urobilinogen Ur Leukocyte Esterase Urine WBC (Auto) Urine RBC (Auto) U Hyaline Cast (Auto) U Epithel Cells (Auto) Urine Bacteria (Auto) Lyme Disease IgG Ab Lyme IgG (Western Blot) Lyme IgG 18 kDa Band Lyme IgG 23 kDa Band Lyme IgG 28 kDa Band Lyme IgG 30 kDa Band Lyme IgG 39 kDa Band Lyme IgG 41 kDa Band Lyme IgG 45 kDa Band Lyme IgG 58 kDa Band Lyme IgG 66 kDa Band Lyme IgG 93 kDa Band Lyme IgM Ab (WB) Lyme Disease IgM Ab Lyme IgM 23 kDa Band Lyme IgM 39 kDa Band Lyme IgM 41 kDa Band 03/29/20 03/29/20 03/29/20 21:55 21:55 22:01 WBC RBC Hgb POC Hgb 14.6 Hct POC Hct 43 MCV MCH MCHC RDW Std Deviation RDW Coeff of Jeff Plt Count MPV Immature Gran % (Auto) Neut % (Auto) Lymph % (Auto) Payne % (Auto) Eos % (Auto) Baso % (Auto) Neut # (Auto) Lymph # (Auto) Payne # (Auto) Eos # (Auto) Baso # (Auto) Immature Gran # (Auto) PT INR APTT PTT Ratio VBG pH VBG pCO2 VBG pO2 VBG HCO3 VBG O2 Saturation VBG Base Excess POC Sodium 129 L Sodium POC Potassium 7.3 H* Potassium POC Chloride 104 Chloride Carbon Dioxide POC Total CO2 18 L Anion Gap POC Anion Gap 16.0 POC BUN 104 H* BUN Creatinine POC Creatinine 4.1 H Est Cr Clr Drug Dosing Est GFR ( Amer) Est GFR (Non-Af Amer) BUN/Creatinine Ratio Glucose POC Glucose (other) 124 H Calcium POC Ioniz Calcium Daniel 1.23 Phosphorus Magnesium Total Bilirubin Direct Bilirubin AST ALT Alkaline Phosphatase Troponin I NT-Pro-B Natriuret Pep Total Protein Albumin Globulin Albumin/Globulin Ratio Lipase TSH Urine Color Urine Appearance Urine pH Ur Specific [place] Urine Protein Urine Glucose (UA) Urine Ketones Urine Blood Urine Nitrite Urine Bilirubin Urine Urobilinogen Ur Leukocyte Esterase Urine WBC (Auto) Urine RBC (Auto) U Hyaline Cast (Auto) U Epithel Cells (Auto) Urine Bacteria (Auto) Lyme Disease IgG Ab Negative Lyme IgG (Western Blot) Pending Lyme IgG 18 kDa Band Pending Lyme IgG 23 kDa Band Pending Lyme IgG 28 kDa Band Pending Lyme IgG 30 kDa Band Pending Lyme IgG 39 kDa Band Pending Lyme IgG 41 kDa Band Pending Lyme IgG 45 kDa Band Pending Lyme IgG 58 kDa Band Pending Lyme IgG 66 kDa Band Pending Lyme IgG 93 kDa Band Pending Lyme IgM Ab (WB) Pending Lyme Disease IgM Ab Positive A Lyme IgM 23 kDa Band Pending Lyme IgM 39 kDa Band Pending Lyme IgM 41 kDa Band Pending 03/29/20 03/29/20 03/29/20 22:19 22:30 23:45 WBC RBC Hgb POC Hgb 12.9 L Hct POC Hct 38 L MCV MCH MCHC RDW Std Deviation RDW Coeff of Jeff Plt Count MPV Immature Gran % (Auto) Neut % (Auto) Lymph % (Auto) Payne % (Auto) Eos % (Auto) Baso % (Auto) Neut # (Auto) Lymph # (Auto) Payne # (Auto) Eos # (Auto) Baso # (Auto) Immature Gran # (Auto) PT INR APTT PTT Ratio VBG pH 7.29 L VBG pCO2 40 VBG pO2 30 VBG HCO3 19 VBG O2 Saturation < 60.0 VBG Base Excess -7.0 POC Sodium 132 L Sodium POC Potassium 6.4 H* Potassium POC Chloride 106 Chloride Carbon Dioxide POC Total CO2 17 L Anion Gap POC Anion Gap 16.0 POC BUN 96 H BUN Creatinine POC Creatinine 3.3 H Est Cr Clr Drug Dosing Est GFR ( Amer) Est GFR (Non-Af Amer) BUN/Creatinine Ratio Glucose POC Glucose (other) 189 H Calcium POC Ioniz Calcium Daniel 1.18 Phosphorus Magnesium Total Bilirubin Direct Bilirubin AST ALT Alkaline Phosphatase Troponin I NT-Pro-B Natriuret Pep Total Protein Albumin Globulin Albumin/Globulin Ratio Lipase TSH Urine Color Yellow Urine Appearance Clear Urine pH 5.0 Ur Specific [place] 1.015 Urine Protein Negative Urine Glucose (UA) Negative Urine Ketones Negative Urine Blood 3+ H Urine Nitrite Negative Urine Bilirubin Negative Urine Urobilinogen Negative Ur Leukocyte Esterase Negative Urine WBC (Auto) 1-5 Urine RBC (Auto) >30 H U Hyaline Cast (Auto) 1-5 U Epithel Cells (Auto) 0-5 Urine Bacteria (Auto) Negative Lyme Disease IgG Ab Lyme IgG (Western Blot) Lyme IgG 18 kDa Band Lyme IgG 23 kDa Band Lyme IgG 28 kDa Band Lyme IgG 30 kDa Band Lyme IgG 39 kDa Band Lyme IgG 41 kDa Band Lyme IgG 45 kDa Band Lyme IgG 58 kDa Band Lyme IgG 66 kDa Band Lyme IgG 93 kDa Band Lyme IgM Ab (WB) Lyme Disease IgM Ab Lyme IgM 23 kDa Band Lyme IgM 39 kDa Band Lyme IgM 41 kDa Band Medications Administered Current Inpatient Medications Sodium Chloride (Nss) 500 mls @ 125 mls/hr IV .Q4H [place] Stop: 04/28/20 23:14 Last Infusion: 03/30/20 00:26 Dose: 125 mls/hr Documented by: Code Status & VTE Plan Code Status full Supervising Physician Co-Signing Physician Notes Patient seen and examined, chart reviewed, case discussed with Dr. Gutierrez and I agree with his assessment and plan as documented above. Briefly, patient is a 75yo male with history of CAD/HTN/HLP/DM presenting with bradycardia, hyperkalemia, CIRILO, suspected heart block. Patient was treated with Atropine prior to arrival. He was medically treated for hyperkalemia with insulin, calcium gluconate, IVF and Kayexelate. Patient reports brief episodes of dizziness and confusion as well as the feeling that his heart was going to stop beating over the last 1-2 weeks He denies CP, SOB, edema or orthopnea On exam he is afebrile, bradycardic, AA&O x 3, pleasant Skin - no rash HEENT - NC/AT, PERRL, EOMI, MMM, Neck supple Heart - +S1/S2, regular, bradcardic, no m/r/g Lungs - CTA, no rales/rhonchi/wheezes Abd - +BS, soft, NT/ND Ext - No edema Neuro - No deficits Labs and images reviewed. +WBC=11.84 Qo=258, K=7.2, CO2=18, BUN=93, Cr=3.72, BXG=9555, Nnkovz=387 Lyme IGM + - Western Blot confirmation pending CXR with mild bilateral airspace disease EKG with wide complex rhythm, ?complete heart block Assessment/Plan: 75yo C male presenting with bradycardia, complete heart block, found to have CIRILO with hyperkalemia as well as Lyme IgM positive. ?Lyme leading to heart block leading to poor perfusion, CIRILO and hyperkalemia vs overdiuresis leading to CIRILO and hyperkalemia leading to bradycardia. Patient reports brief episodes of dizziness and confusion over the past week. ?if these were episodes of bradycardia with poor perfusion?. He is currently well appearing, conversational and appropriate with no symptoms. No clinical evidence of heart failure although elevated BNP and mild pulmonary edema on CXR. -Admit to PCU, place pacer pads on chest -Await Lyme WB confirmatory testing -Ceftriaxone 2gm IV daily until heart block resolves -Doxycycline 100mg PO BID to cover possible other tick borne illnesses -IVF -BMP q 4 hours to monitor K and renal function - patient with Sam in place and is making urine. He may need additional round of Hyper-K treatment if K is not resolving -Cardiology consultation appreciated -Remainder of plan as above Resident Activity Tracking Resident Involvement: Resident Care Provided Care Provided: Adult Hospital Medicine
[2020-03-30] MEDS ORDERED: GLUCOSE 40% GEL 15 GM TUBE PO PRN ×2 (01:54→02:45)
[2020-03-30] MEDS ORDERED: GLUCOSE 10 TABS/TUBE PO PRN ×2 (01:54→02:45)
[2020-03-30] MEDS ORDERED: CARBOHYDRATES FOR HYPOGLYCEMIA PO PRN ×2 (01:54→02:45)
[2020-03-30] MEDS ORDERED: CLOTRIMAZOLE 1% CR 15 GM TUBE TOP PRN (01:54)
[2020-03-30] MEDS ORDERED: SODIUM CHLORIDE 0.9% 1000ML 1,000 ML IV SCH (01:54)
[2020-03-30] MEDS ORDERED: ALUMINUM/MAGNESIUM SUSP 30 ML UDC PO PRN (01:54)
[2020-03-30] MEDS ORDERED: DEXTROSE 50% 50 ML SYRINGE IV PRN ×2 (01:54→02:45)
[2020-03-30] MEDS ORDERED: GLUCAGON FOR INJ 1 MG VIAL SQ PRN (01:54)
[2020-03-30] MEDS ORDERED: ONDANSETRON INJ 2 MG/ML 2 ML VIAL IV PRN (01:54)
[2020-03-30] MEDS ORDERED: ACETAMINOPHEN 325 MG TAB PO PRN (01:54)
[2020-03-30] MEDS ORDERED: GLUCAGON FOR INJ 1 MG VIAL IM PRN (02:45)
--- NOTE | 2020-03-30 03:40 | Billing Data ---
Date of Service March 30, 2020 Coding Level of Care Code 89194 Initial Inpt Care Lvl 3
[2020-03-30 03:41] LABS: Basophils # (auto) 0.02 K/uL (0-0.2); Basophils % (auto) 0.2 %; Eosinophils # (auto) 0.11 K/uL (0-0.5); Eosinophils % (auto) 1.1 %; Hematocrit (blood only) 39.8 % (42-52); Hemoglobin 13.7 g/dL (14.0-18.0); Immature Granulocytes # (auto) 0.01 K/uL (0.00-0.02); Immature Granulocytes % (auto) 0.1 %; Lymphocytes # (auto) 1.28 K/uL (1.2-3.4); Mean Corpuscular Hemoglobin 31.1 pg (25-34); Mean Corpuscular Hgb Conc 34.4 g/dL (32-36); Mean Corpuscular Volume 90.5 fL (80-100); Mean Platelet Volume 10.9 fL (7.4-10.4); Monocytes # (auto) 0.62 K/uL (0.11-0.59); Monocytes % (auto) 6.3 %; Neutrophils % (auto) 79.3 %; Platelet Count 182 K/uL (130-400); RDW Coefficient of Variation 14.7 % (11.5-14.5); RDW Standard Deviation 48.4 fL (36.4-46.3); White Blood Count 9.84 K/uL (4.8-10.8)
[2020-03-30 04:02] LABS: BUN Creatinine Ratio 28.1 (10-20); Calcium 8.8 mg/dl (8.5-10.1); Est GFR (African American) 19.1; Est GFR (Non-African American) 16.5; Magnesium 2.8 mg/dl (1.8-2.4); Phosphorus 5.6 mg/dl (2.5-4.9); Potassium 6.6 mmol/L (3.5-5.1)
[2020-03-30] MEDS ORDERED: CALCIUM GLUCONATE 10% 2,000 MG in SODIUM CHLORIDE 0.9% 50 ML IV STA (04:11)
[2020-03-30] MEDS ORDERED: SODIUM POLYSTYRENE SULFONATE 15G/60ML SUSP PO STA ×2 (04:16→15:53)
[2020-03-30] MEDS ORDERED: DEXTROSE 50% 50 ML SYRINGE IV ONE (04:25)
[2020-03-30] MEDS ORDERED: INSULIN HUMAN REGULAR PER UNIT 10 UNITS in SYRINGE 9.9 ML IV ONE (04:30)
[2020-03-30] MEDS: cefTRIAXone SODIUM 2,000 MG in DEXTROSE 5% 50 ML IV SCH (04:41)
--- NOTE | 2020-03-30 06:38 | CT Scan Report ---
CT abd pelvis wo con CT DOSE: 1698.84 mGy.cm HISTORY: acute renal failure, abd pain nausea TECHNIQUE: Multiaxial CT images of the abdomen and pelvis were performed without contrast. A dose lo wering technique was utilized adhering to the principles of ALARA. COMPARISON STUDY: None. FINDINGS: The lung bases are clear. The unenhanced liver, spleen, gallbladder, pancreas, kidneys, and adrenal glands are within normal limits. No bowel wall thickening or obstruction. The pelvic organs are unremarkable. No suspicious lytic or blastic osseous lesions. Mild proximal sigmoid colonic diver ticulosis IMPRESSION: No significant abnormality identified within the abdomen or pelvis. Mild proximal sigmoid colonic div erticulosis. No evidence for diverticulitis. ACT 112: Negative or not required by law. The above report was generated using voice recognition software. It may contain grammatical, syntax or spelling errors. Electronically signed by: Mark Villanueva M.D. 03/30/2020 6:37 AM
--- NOTE | 2020-03-30 06:44 | XRay Report ---
XR chest 1V portable CLINICAL HISTORY: Atypical chest pain COMPARISON STUDY: 12/21/2017 FINDINGS: The heart is borderline enlarged. There is no failure. There is no focal pulmonary consolid ation. There are no pleural effusions.[ IMPRESSION: No active disease in the chest. ACT 112: Negative or not required by law. Electronically signed by: Corona العلي M.D. 03/30/2020 6:43 AM
[2020-03-30] MEDS ORDERED: SODIUM CHLORIDE 0.9% 1000ML 1,000 ML IV ONE (08:33)
[2020-03-30 08:51] LABS: BUN Creatinine Ratio 29.9 (10-20); Calcium 9.2 mg/dl (8.5-10.1); Creatinine Clr Calc Pharmacy 28.9 ml/min; Est GFR (African American) 22.7; Est GFR (Non-African American) 19.6; Potassium 5.7 mmol/L (3.5-5.1)
[2020-03-30] MEDS ORDERED: SODIUM BICARB 8.4% INJ 50 MEQ/50 ML SYR IV STA (08:58)
[2020-03-30] MEDS ORDERED: FUROSEMIDE 40 MG in SYRINGE 0 ML IV ONE (09:00)
[2020-03-30] MEDS ORDERED: cefTRIAXone SODIUM 2,000 MG in DEXTROSE 5% 50 ML IV SCH (09:00)
[2020-03-30] MEDS ORDERED: ENOXAPARIN INJ 40 MG/0.4 ML SYR SQ SCH (09:00)
[2020-03-30] MEDS ORDERED: FUROSEMIDE 100 MG in SYRINGE 0 ML IV ONE (09:15)
[2020-03-30] MEDS: INSULIN ASPART 100 UNITS/ML 3 ML PEN SC SCH ×4 (09:28→21:19)
[2020-03-30] MEDS: INSULIN GLARGINE SOLOSTAR 100 UNITS/ML 3 ML PEN SC SCH ×2 (09:28→21:21)
[2020-03-30] MEDS: ASPIRIN 81 MG ECTAB PO SCH (09:29)
[2020-03-30] MEDS: DOXYCYCLINE HYCLATE 100 MG CAP PO SCH ×2 (09:29→21:22)
[2020-03-30] MEDS: ENOXAPARIN INJ 30 MG/0.3 ML SYR SQ SCH (09:29)
[2020-03-30] MEDS: allopurinoL 300 MG TAB PO SCH (09:29)
--- NOTE | 2020-03-30 09:33 | Nephrology Consultation ---
Date of Consultation March 30, 2020 Assessment & Plan (1) Acute hyperkalemia: * Patient was seen emergently in the ICU. Potassium is trending down with medical management and hemodynamic status has improved * Discussed HD w/ patient and primary service. Given current clinical improvement will continue w/ medical management * staff development educator ordered to provide 1g Ca gluconate, 1 amp NaHCO3 IV x1, 1L NS bolus IV and 100 mg Furosemide IV x1 * Hold Lisinopril, Spironolactone and Dyazide * Next PRP to be drawn at 12 noon 90 min critical care time provided in the ICU this morning (2) Acute on chronic kidney failure: * Creatinine is trending down following IV hydration * Hold Lisinopril * Monitor PRP History of Present Illness Reason for Consultation: CIRILO/hyperkalemia Attending Physician: Serena Garces MD History of Present Illness Mr. Peterson is a 75 year old white male who is seen emergently at the request of Dr. Villatoro in the ICU for evaluation of CIRILO/hyperkalemia. Medical records in the EMR were reviewed and are summarized as follows: Mr. Peterson has ASCVD/ICM and is followed in the CHF clinic. He was hospitalized 02/19 w/ CHF. During his hospitalization Spironolactone was added to his medical regimen. He was also taking Lisinopril and Dyazide. Following his hospitalization Furosemide dose was reduced. Yesterday evening he developed GI upset and lightheadedness. EMS was called. Mr. Peterson was found to be in 3rd degree heart block w/ HR ~ 30, SBP 80's. Atropine was administered and Mr. Peterson was brought to the ED for evaluation. Labs revealed K 7.0, Cr 4.0, HCO3 18. Medical management of hyperkalemia was provided and transcutaneous pacer pads applied. Patient received 2g Ca at MN and 1g at 5am, Kayexelate 45 g po, dextrose and insulin. K had improved to 6.6 by 3am. Nephrology was called at 8:30 am to assess need for dialysis. At the time of my evaluation telemetry revealed a junctional rhythm but HR has improved to 60 bpm, BP120's. Patient was mentating well. He denied angina or dyspnea. Lungs - CTA, CV - reg, Ext - no edema. Lab was called. 8am labs were resulted but not yet posted. 8am K has improved to 5.7. Patient having frequent bowel movements due to kayexelate therapy. Allergies Allergy/AdvReac Type Severity Reaction Status Date / Time Emtjhgh-Btf-Ska Reductase AdvReac Intermediate MYALGIAS Verified 03/17/20 14:23 Inhibitor Home Medications Home Medications Medication Instructions Recorded Confirmed Type allopurinol 300 mg tablet 300 mg PO DAILY tab 05/11/19 03/29/20 History aspirin 81 mg tablet 81 mg PO DAILY tab 05/11/19 03/29/20 History lisinopril 20 mg tablet 20 mg PO BID tab 05/11/19 03/29/20 History metformin 500 mg tablet 500 mg PO BID tab 05/11/19 03/29/20 History iokmbtpi-jjc-omdgb acid 300 1 tab PO DAILY 05/11/19 03/29/20 History mcg-lycopene 600 mcg-lutein 300 mcg tablet nitroglycerin 0.4 mg sublingual 0.4 mg SL Q5M PRN #25 tab 05/11/19 03/29/20 History tablet vitamins A,C,Z-odpy-ikxpdq 14,320 1 cap PO BID 05/11/19 03/29/20 History unit-226 mg-200 unit capsule omega 4-amx-vvr-fish oil 1,000 mg 1 cap PO DAILY 05/20/19 03/29/20 History (120 mg-180 mg) capsule isosorbide mononitrate 60 mg 60 mg PO DAILY #90 tab 10/08/19 03/29/20 Rx tablet,extended release 24 hr colestipol 1 gram tablet 2 gm PO BID #360 tab 11/10/19 03/29/20 Rx triamterene 37.5 1 tab PO DAILY tab 01/05/20 03/29/20 History mg-hydrochlorothiazide 25 mg tablet clotrimazole 1 % topical cream 1 appln TOP BID PRN 03/17/20 03/29/20 History furosemide 40 mg tablet 40 mg PO DAILY #90 tab 03/17/20 03/29/20 Rx metoprolol succinate 200 mg 200 mg PO DAILY tab 03/17/20 03/29/20 History tablet,extended release 24 hr spironolactone 25 mg tablet 25 mg PO QAM #90 tab 03/17/20 03/29/20 Rx triamcinolone acetonide 55 mcg 1 sprays INTNAS DAILY 03/17/20 03/29/20 History nasal spray aerosol turmeric root extract 500 mg 1,000 mg PO DAILY cap 03/17/20 03/29/20 History capsule Patient History Medical History Arthritis of Back and Knees Bronchitis Coronary artery disease Hyperlipidemia Hypertension Past heart attack Pulmonary embolism Type 2 diabetes mellitus Surgical History History of prostate biopsy S/P coronary artery stent placement Family History Family/Other Prostate cancer Father Heart disease Mother Bone cancer Sister Colon cancer Social History Smoking Status: Never smoker Second Hand Exposure: No; Do You Dip or Chew Tobacco: No; Tobacco Cessation Education Requested by Patient: No Hx Alcohol Use: No Hx Substance Use: No Preferred Language: Lao Communication Ability: Effective Public Relations 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 Director 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: No Beliefs That Will Affect Care: None marital status: Single Current Living Situation: Alone current occupational status: retired Other Information That Helps Us Care for You: No Feels Safe at Home: Yes Safety Concerns: Feels Safe At This Time Diet Comment: Has special diet unsure what kind Physical Exam Constitutional: no acute distress Eyes: PERRL, conjunctivae normal, anicteric sclerae ENMT: external ear and nose normal, oropharynx normal Neck: trachea midline, no thyromegaly Respiratory: normal respiratory effort, lungs clear to auscultation Cardiovascular: RRR, no murmur, no edema Gastrointestinal (Abdomen): normal bowel sounds, soft, nontender, no hepatosplenomegaly Musculoskeletal: Extremities: no cyanosis Skin: no rashes, warm and dry Neurologic: awake; not confused Results & Data Vital Signs (Past 12 Hours) Vital Signs Temp Pulse Pulse Resp BP BP Pulse Ox 03/30/20 06:00 82 13 99 03/30/20 05:30 44 L 17 95 03/30/20 05:11 57 L 19 151/65 H 97 03/30/20 05:00 41 L 14 97 03/30/20 04:30 43 L 12 94 03/30/20 04:12 34 L 15 122/49 L 97 03/30/20 04:00 41 L 12 03/30/20 03:30 36 L 16 96 03/30/20 03:11 40 L 15 105/37 L 96 03/30/20 03:00 36 L 13 92 03/30/20 02:30 39 L 14 93 03/30/20 02:11 41 L 12 109/54 L 96 03/30/20 02:08 155 H 03/30/20 02:00 36.8 C 31 L 18 109/54 L 95 03/30/20 01:54 36.8 C 31 L 20 109/54 L 95 03/30/20 01:46 46 L 13 89 L 03/30/20 01:45 43 L 12 100/45 L 98 03/30/20 01:31 42 L 19 95/43 L 94 03/30/20 01:30 43 L 16 03/30/20 01:25 43 L 13 98/47 L 94 03/30/20 01:15 37 L 14 94 03/30/20 01:02 38 L 14 100 03/30/20 01:01 35 L 14 101/40 L 98 03/30/20 01:00 42 L 14 98 03/30/20 00:47 48 L 16 96 03/30/20 00:46 42 L 13 96/46 L 93 03/30/20 00:45 39 L 14 94 03/30/20 00:31 35 L 12 135/54 L 98 03/30/20 00:30 39 L 18 03/30/20 00:28 33 L 13 96 03/30/20 00:27 42 L 12 122/50 L 96 03/30/20 00:15 40 L 14 98 03/30/20 00:01 39 L 12 98 03/30/20 00:00 37 L 16 134/66 96 03/29/20 23:48 37 L 14 94 03/29/20 23:47 41 L 13 104/44 L 97 03/29/20 23:45 43 L 14 95 03/29/20 23:31 46 L 16 122/53 L 96 03/29/20 23:30 34 L 14 94 03/29/20 23:17 50 L 15 97 03/29/20 23:16 42 L 16 98/49 L 98 03/29/20 23:15 45 L 15 98 03/29/20 23:13 46 L 14 98 03/29/20 23:12 46 L 91/54 L 99 03/29/20 23:11 44 L 99 03/29/20 22:50 43 L 03/29/20 22:45 37 L 96 03/29/20 21:51 36.8 C 42 L 20 102/59 L 97 Pulse Ox 03/30/20 06:00 03/30/20 05:30 03/30/20 05:11 03/30/20 05:00 03/30/20 04:30 03/30/20 04:12 03/30/20 04:00 03/30/20 03:30 03/30/20 03:11 03/30/20 03:00 03/30/20 02:30 03/30/20 02:11 03/30/20 02:08 03/30/20 02:00 03/30/20 01:54 95 03/30/20 01:46 03/30/20 01:45 03/30/20 01:31 03/30/20 01:30 03/30/20 01:25 03/30/20 01:15 03/30/20 01:02 03/30/20 01:01 03/30/20 01:00 03/30/20 00:47 03/30/20 00:46 03/30/20 00:45 03/30/20 00:31 03/30/20 00:30 03/30/20 00:28 03/30/20 00:27 03/30/20 00:15 03/30/20 00:01 03/30/20 00:00 03/29/20 23:48 03/29/20 23:47 03/29/20 23:45 03/29/20 23:31 03/29/20 23:30 03/29/20 23:17 03/29/20 23:16 03/29/20 23:15 03/29/20 23:13 03/29/20 23:12 03/29/20 23:11 03/29/20 22:50 03/29/20 22:45 03/29/20 21:51 Laboratory Tests 03/29/20 03/29/20 03/30/20 22:01 23:45 03:20 WBC Hgb Hct Plt Count Sodium POC Potassium 7.3 H* 6.4 H* Potassium 6.6 H* Chloride Carbon Dioxide BUN Creatinine Calcium 03/30/20 03/30/20 03:20 08:00 WBC 9.84 Hgb 13.7 L Hct 39.8 L Plt Count 182 Sodium 134 L POC Potassium Potassium 5.7 H Chloride 107 Carbon Dioxide 18 L BUN 89 H Creatinine 2.96 H D Calcium 9.2 PG Care Time/CCT Total # of Minutes Spent Total Time Spent with Patient: Total time spent is greater than 50% in coordination of care (as documented) at patient's floor/unit and/or counseling patient: Critical Care Time: Yes Total Critical Care Time: 90 Coding Level of Care Code None Diagnoses Acute hyperkalemia E87.5 Acute on chronic kidney failure N17.9; N18.9 Additional Codes Critical Care Time - Critical Care Time: Yes ([id number])
[2020-03-30] MEDS ORDERED: CALCIUM GLUCONATE 10% 1,000 MG in SODIUM CHLORIDE 0.9% 50 ML IV ONE (10:00)
--- NOTE | 2020-03-30 10:32 | Cardiology Consultation ---
Date of Consultation March 30, 2020 Assessment & Plan (1) Junctional bradycardia: On presentation he appeared to be in a junctional bradycardia with a somewhat wide complex although his complex had the same axis and morphology as his baseline several weeks ago. This is consistent with hyperkalemia causing a wide-complex, it is also likely that hyperkalemia inhibited his sinus function resulting in a junctional bradycardia. I do not see evidence of complete heart block. (2) Acute hyperkalemia: The cause of his hyperkalemia appears to be a combination of spironolactone, triamterene as well as a possible contribution of Lasix and hydrochlorothiazide resulting in renal insufficiency. He is not on a potassium supplement. I do not know that he needs spironolactone, I am not sure exactly why it was added. His LV function is diminished but not terribly so, I would probably avoid spironolactone in the future. (3) Acute on chronic kidney failure: He has chronic kidney disease, he had significant worsening of his creatinine this admission. That is probably due to either dehydration from diuresis or from his junctional bradycardia causing a decreased cardiac output. It is hard to tell the difference at this point, both will result in decreased perfusion of his kidneys. (4) Diastolic CHF: He has a history of diastolic heart failure primarily, we need to be careful about over diuresis. Fluid management may be difficult over the long run as he may have very little change in volume to go from fluid overload to dehydration. (5) S/P coronary artery stent placement: He has coronary disease but that does not seem to be a factor in his presentation. History of Present Illness Reason for Consultation: Bradycardia Attending Physician: Serena Garces MD History of Present Illness This is a 75-year-old male with a history of diabetes, hypertension, dyslipidemia and coronary artery disease including myocardial infarction August 2007 where he had an LAD stent placed August 04, 2007. He has an ischemic cardiomyopathy which has improved with medical therapy, his ejection fraction March 08, 2020 was 45 to 50% with wall motion abnormalities. This was similar to 2018. He has had admissions for diastolic heart failure however, most recently March 07 through March 12, 2020. He was recently seen in our heart failure clinic on March 17, 2020. He was evidently doing well, following a diet and having improvement in his peripheral edema. He presented to the emergency room on March 29, 2020 with a wide-complex rhythm and bradycardia, however his creatinine was elevated to 3.72, his potassium was 7.3 and his electrocardiogram showed a left bundle pattern at a rate of 43 bpm, QRS duration 124 ms. There may be one P wave visible on the tracing although it could also be artifact, otherwise there are no P waves visible. Following admission his creatinine has improved to 5.7 his creatinine has gradually improved somewhat as well. His chest x-ray did not indicate congestive heart failure. His potassium was 4.2 on March 16, 2020. His creatinine was 1.8 at that time with a baseline of around 1.3-1.5. Based on our office records he was on spironolactone 25 mg daily and triamterene 37.5 mg daily as part of Dyazide. He was also on lisinopril 20 mg twice daily in addition to furosemide. At the time of my evaluation he was feeling much better. His potassium had been corrected resulting in improvement in his heart rate. He is sitting in his chair at his bedside, he is feeling very well and has no current complaints. Allergies Allergy/AdvReac Type Severity Reaction Status Date / Time Ubxnkqx-Iom-Bym Reductase AdvReac Intermediate MYALGIAS Verified 03/17/20 14:23 Inhibitor Home Medications Home Medications Medication Instructions Recorded Confirmed Type allopurinol 300 mg tablet 300 mg PO DAILY tab 05/11/19 03/29/20 History aspirin 81 mg tablet 81 mg PO DAILY tab 05/11/19 03/29/20 History lisinopril 20 mg tablet 20 mg PO BID tab 05/11/19 03/29/20 History metformin 500 mg tablet 500 mg PO BID tab 05/11/19 03/29/20 History obeiacvp-zqp-irmek acid 300 1 tab PO DAILY 05/11/19 03/29/20 History mcg-lycopene 600 mcg-lutein 300 mcg tablet nitroglycerin 0.4 mg sublingual 0.4 mg SL Q5M PRN #25 tab 05/11/19 03/29/20 History tablet vitamins A,C,Z-badg-sqeddk 14,320 1 cap PO BID 05/11/19 03/29/20 History unit-226 mg-200 unit capsule omega 6-plz-eof-fish oil 1,000 mg 1 cap PO DAILY 05/20/19 03/29/20 History (120 mg-180 mg) capsule isosorbide mononitrate 60 mg 60 mg PO DAILY #90 tab 10/08/19 03/29/20 Rx tablet,extended release 24 hr colestipol 1 gram tablet 2 gm PO BID #360 tab 11/10/19 03/29/20 Rx triamterene 37.5 1 tab PO DAILY tab 01/05/20 03/29/20 History mg-hydrochlorothiazide 25 mg tablet clotrimazole 1 % topical cream 1 appln TOP BID PRN 03/17/20 03/29/20 History furosemide 40 mg tablet 40 mg PO DAILY #90 tab 03/17/20 03/29/20 Rx metoprolol succinate 200 mg 200 mg PO DAILY tab 03/17/20 03/29/20 History tablet,extended release 24 hr spironolactone 25 mg tablet 25 mg PO QAM #90 tab 03/17/20 03/29/20 Rx triamcinolone acetonide 55 mcg 1 sprays INTNAS DAILY 03/17/20 03/29/20 History nasal spray aerosol turmeric root extract 500 mg 1,000 mg PO DAILY cap 03/17/20 03/29/20 History capsule Patient History Medical History Arthritis of Back and Knees Bronchitis Coronary artery disease Hyperlipidemia Hypertension Past heart attack Pulmonary embolism Type 2 diabetes mellitus Surgical History History of prostate biopsy S/P coronary artery stent placement Family History Family/Other Prostate cancer Father Heart disease Mother Bone cancer Sister Colon cancer Social History Smoking Status: Never smoker Second Hand Exposure: No; Do You Dip or Chew Tobacco: No; Tobacco Cessation Education Requested by Patient: No Hx Alcohol Use: No Hx Substance Use: No Preferred Language: Guatemalan Communication Ability: Effective 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 HEENT: Unremarkable Neck: No jugular venous distention, carotid pulses are normal and equal bi laterally without bruits. Pulmonary: Clear to auscultation bilaterally. Cardiac: Regular rhythm with no murmur, gallop or rub. Abdomen: Soft, nontender with normal bowel sounds. Extremities: No edema. Distal pulses intact. Neurologic: No focal findings. Gait is steady. Skin: No rash, ecchymoses or petechiae. Results & Data ([facility]) Vital Signs (Past 12 Hours) Vital Signs Temp Pulse Pulse Resp BP BP Pulse Ox 03/30/20 06:00 82 13 99 03/30/20 05:30 44 L 17 95 03/30/20 05:11 57 L 19 151/65 H 97 03/30/20 05:00 41 L 14 97 03/30/20 04:30 43 L 12 94 03/30/20 04:12 34 L 15 122/49 L 97 03/30/20 04:00 41 L 12 03/30/20 03:30 36 L 16 96 03/30/20 03:11 40 L 15 105/37 L 96 03/30/20 03:00 36 L 13 92 03/30/20 02:30 39 L 14 93 03/30/20 02:11 41 L 12 109/54 L 96 03/30/20 02:08 155 H 03/30/20 02:00 36.8 C 31 L 18 109/54 L 95 03/30/20 01:54 36.8 C 31 L 20 109/54 L 95 03/30/20 01:46 46 L 13 89 L 03/30/20 01:45 43 L 12 100/45 L 98 03/30/20 01:31 42 L 19 95/43 L 94 03/30/20 01:30 43 L 16 03/30/20 01:25 43 L 13 98/47 L 94 03/30/20 01:15 37 L 14 94 03/30/20 01:02 38 L 14 100 03/30/20 01:01 35 L 14 101/40 L 98 03/30/20 01:00 42 L 14 98 03/30/20 00:47 48 L 16 96 03/30/20 00:46 42 L 13 96/46 L 93 03/30/20 00:45 39 L 14 94 03/30/20 00:31 35 L 12 135/54 L 98 03/30/20 00:30 39 L 18 03/30/20 00:28 33 L 13 96 03/30/20 00:27 42 L 12 122/50 L 96 03/30/20 00:15 40 L 14 98 03/30/20 00:01 39 L 12 98 03/30/20 00:00 37 L 16 134/66 96 03/29/20 23:48 37 L 14 94 03/29/20 23:47 41 L 13 104/44 L 97 03/29/20 23:45 43 L 14 95 03/29/20 23:31 46 L 16 122/53 L 96 03/29/20 23:30 34 L 14 94 03/29/20 23:17 50 L 15 97 03/29/20 23:16 42 L 16 98/49 L 98 03/29/20 23:15 45 L 15 98 03/29/20 23:13 46 L 14 98 03/29/20 23:12 46 L 91/54 L 99 03/29/20 23:11 44 L 99 03/29/20 22:50 43 L 03/29/20 22:45 37 L 96 Pulse Ox 03/30/20 06:00 03/30/20 05:30 03/30/20 05:11 03/30/20 05:00 03/30/20 04:30 03/30/20 04:12 03/30/20 04:00 03/30/20 03:30 03/30/20 03:11 03/30/20 03:00 03/30/20 02:30 03/30/20 02:11 03/30/20 02:08 03/30/20 02:00 03/30/20 01:54 95 03/30/20 01:46 03/30/20 01:45 03/30/20 01:31 03/30/20 01:30 03/30/20 01:25 03/30/20 01:15 03/30/20 01:02 03/30/20 01:01 03/30/20 01:00 03/30/20 00:47 03/30/20 00:46 03/30/20 00:45 03/30/20 00:31 03/30/20 00:30 03/30/20 00:28 03/30/20 00:27 03/30/20 00:15 03/30/20 00:01 03/30/20 00:00 03/29/20 23:48 03/29/20 23:47 03/29/20 23:45 03/29/20 23:31 03/29/20 23:30 03/29/20 23:17 03/29/20 23:16 03/29/20 23:15 03/29/20 23:13 03/29/20 23:12 03/29/20 23:11 03/29/20 22:50 03/29/20 22:45 Diagnostic Findings Cardiac Enzymes 03/29/20 Range/Units 21:55 AST 9 L (15-37) U/L Troponin I < 0.015 (0-0.045) ng/ml Coagulation 03/29/20 Range/Units 21:55 PT 10.5 (9.0-12.0) Seconds APTT 25.9 (21.0-31.0) Seconds CBC 03/29/20 03/30/20 Range/Units 21:55 03:20 WBC 11.83 H 9.84 (4.8-10.8) K/uL RBC 4.60 L 4.40 L (4.7-6.1) M/uL Hgb 14.1 13.7 L (14.0-18.0) g/dL Hct 41.0 L 39.8 L (42-52) % Plt Count 201 182 (130-400) K/uL Neut # (Auto) 9.81 H 7.80 H (1.4-6.5) K/uL Lymph # (Auto) 1.07 L 1.28 (1.2-3.4) K/uL [place] # (Auto) 0.84 H 0.62 H (0.11-0.59) K/uL Eos # (Auto) 0.07 0.11 (0-0.5) K/uL Baso # (Auto) 0.01 0.02 (0-0.2) K/uL Comprehensive Metabolic Panel 03/29/20 03/30/20 03/30/20 Range/Units 21:55 03:20 08:00 Sodium 129 L 134 L 134 L (136-145) mmol/L Potassium 7.2 H* 6.6 H* 5.7 H (3.5-5.1) mmol/L Chloride 103 108 H 107 (98-107) mmol/L Carbon Dioxide 18 L 20 L 18 L (21-32) mmol/L BUN 93 H 96 H 89 H (7-18) mg/dl Creatinine 3.72 H 3.42 H D 2.96 H D (0.6-1.4) mg/dl Glucose 123 H 100 H 117 H (70-99) mg/dl Calcium 9.3 8.8 9.2 (8.5-10.1) mg/dl Direct Bilirubin 0.1 (0-0.2) mg/dl AST 9 L (15-37) U/L ALT 17 (12-78) U/L Alkaline Phosphatase 84 (45-117) U/L Total Protein 7.2 (6.4-8.2) gm/dl Albumin 3.7 (3.4-5.0) gm/dl Intake and Output 03/29/20 03/30/20 03/30/20 22:59 06:59 14:59 Intake Total 70 / 3811.358 8949.000 / 7065.544 6399 / 1818 Output Total 50 / 428 378 / 428 Balance 20 / 5430.993 7296.000 / 9382.878 2414 / 1818 Intake: IV 70 / 4339.185 0420.000 / 9033.745 8809 / 1818 Calcium Gluconate 10% 2,000 mg 70 / 140 70 / 140 In Nss 50 ml @ 240 mls/hr IV NOW STA Rx#:[id number] Nss 1000ML 1,000 ml @ 999 mls/ 1818 / 1818 hr IV .Q1H1M ONE Rx#:[id number] Nss 500 ml @ 125 mls/hr IV .Q4H 1500.000 / 1500.000 [facility] Rx#:[id number] Rocephin 2,000 mg In D5w 50 ml 70 / 70 @ 100 mls/hr IV Q24H [place] Rx#: [id number] Oral 0 / 0 Output: Stool 1 / 1 Urine Amount (Catheter) 50 / 425 375 / 425 Sam/Indwelling 50 / 425 375 / 425 # Bowel Movements 2 / 2 Other: Weight 123.9 kg 124 kg His presenting electrocardiogram on March 29, 2020 at 2149 showed what I believe to be a junctional bradycardia at 43 bpm. There might be 1 atrial beat evident, but no consistent atrial activity. There is a left bundle branch pattern versus anterior myocardial infarction with left axis deviation. In comparison his electrocardiogram from March 07, 2020 he was in sinus rhythm with a borderline QRS duration but a very similar conduction pattern with left axis deviation and QS pattern across the precordium. On telemetry he remained in a junctional bradycardia with occasional increased heart rate overnight, this morning he regained sinus rhythm based on telemetry with a heart rate in the 80s. PG Care Time/CCT Total # of Minutes Spent Total Time Spent with Patient: Total time spent is greater than 50% in coordination of care (as documented) at patient's floor/unit and/or counseling patient: Coding Level of Care Code 71972 Initial Inpt Care Lvl 3 Diagnoses Junctional bradycardia R00.1 Acute hyperkalemia E87.5 Acute on chronic kidney failure N17.9; N18.9 Diastolic CHF I50.30 S/P coronary artery stent placement Z95.5
[2020-03-30] MEDS: COLESTIPOL HCL 1 GM TAB PO SCH ×2 (11:13→22:38)
[2020-03-30 11:38] LABS: BUN Creatinine Ratio 30.3 (10-20); Calcium 8.8 mg/dl (8.5-10.1); Creatinine Clr Calc Pharmacy 31.4 ml/min; Est GFR (African American) 25.2; Est GFR (Non-African American) 21.7; Potassium 5.4 mmol/L (3.5-5.1)
--- NOTE | 2020-03-30 12:59 | Medical Student Progress Note ---
Date of Service March 30, 2020 Assessment & Plan (1) Junctional bradycardia: Patient is a 75 year old male with a past medical history of CHF, CAD, and CKD who presented to the emergency department with abdominal pain, leg cramps and was found to have a HR in the 30s with EKG changes as well as hyperkalemia. After consultation with cardiology, the bradycardia likely seems secondary to his hyperkalemia, which seems secondary to the addition of spironolactone to his CHF regimen. Junctional bradycardia in setting of hyperkalemia - HR this am down in 30s. - Appreciate cardiology consult - Junctional bradycardia 2/2 hyperkalemia - Per cards the wide complexes can be attributed to hyperkalemia - Only IgM lyme titre +. Likely false positive. Abx d/pasha - Treating Hyperkalemia - Patient's heart rate has come up to the 80s later in the day Hyperkalemia w/ Acute on chronic kidney disease 2/2 diuretics - Recently started on spironolactone and furosemide dose decreased as outpatient - CIRILO prerenal - Treated with multiple dose of insulin, calcium gluconate, kayexalate. - Nephro consulted - feels that both hyperkalemia and CIRILO are due to recent prescription of spironolactone on top of furosemide - administered calcium, sodium bicarb, 1L NSS bolus, 100 mg furosemide this morning. Kayexelate overnight per nephro as above. - Hold lisinopril, spironolactone, dyazide. - Continue BMP Q4H Chronic systolic Congestive Heart Failure - EF 45-50% - No symptoms of exacerbation (dyspnea, fatigue, edema) - CXR showed an enlarged heart but otherwise unremarkable - Appreciate cardiology consult - Per cards spironolactone is not needed for this patient's CHF management and that it should be discontinued altogether Hypoxia - O2 at baseline DM II HbA1c 6.4 (as March) Holding home metformin. - Insulin SSI Gout Chronic, no acute flare. Continue allopurinol FEN/GI: NSS. Heart healthy low-potassium diet. DVT prophylaxis: Lovenox 30 mg SQ daily Full Code Dispo: PCU Present on Admission?: Yes (2) Acute hyperkalemia: Present on Admission?: Yes (3) Acute on chronic kidney failure: Present on Admission?: Yes (4) Acute diastolic CHF (congestive heart failure): Present on Admission?: Yes Supervising Attestation Medical student Supervision Note: I independently interviewed and examined the patient and verified the beltran history and physical, reviewed labs and image studies, discussed the case with Bianka Brothers and agree with the findings and care plan. Patient bradycardic this am in 30s. Denied shortness of breath, chest pain, dizziness. Other vitals stable Received insulin, calcium gluconate, IVF and kayexalate overnight. considering HR and hyperkalemia of K above 6 - consulted with nephrology for need of hemodialysis. repeat k started check came down. plan to hold HD. recommended starting IV with bicarb, lasix 100mgs Patient's heart rate slowly started to go up. Spent 35 min of critical care time. Subjective Patient gave a little background about his admission and the events leading up to his admission. Jesús was admitted to the hospital recently (discharge date was 03/12) for CHF. He was put on 25 mg of spironolactone and 40 mg of furosemide daily (down from his previous dose of 60 mg of furosemide). He felt fine for about a week, but then started having intermittent episodes of: cramping muscular pain, upper abdominal discomfort, diaphoresis, altered mental status ("I just felt foggy sometimes"), and feeling like "my heart was going to stop." He saw his provider who manages his CHF, but they did not feel he needed to go to the ED. But as his symptoms worsened, he decided to go to the ED, where he was found to be bradycardic with "wide QRS complexes and no discernable P waves." Today, he says he feels "good" and that if he didn't know that his vitals/test results are not looking good, then he'd have had no idea that he was having health problems. He currently does not endorse any SOB, chest pain, muscle pain, palpitations, light-headedness, n/v, or abdominal pain. Review of Systems Cardiovascular: no chest pain, no dyspnea, no palpitations and no lightheadedness Gastrointestinal: no abdominal pain, no nausea and no vomiting Physical Exam Constitutional: WD/WN, vitals as above Respiratory: normal respiratory effort, lungs clear to auscultation Cardiovascular: Rate/Rhythm: + bradycardic Heart Sounds: normal S1 and normal S2; no murmur Results & Data ([facility]) Vital Signs (Past 12 Hours) Vital Signs Temp Pulse Pulse Resp BP BP Pulse Ox 03/30/20 11:00 36.4 C L 03/30/20 06:00 82 13 99 03/30/20 05:30 44 L 17 95 03/30/20 05:11 57 L 19 151/65 H 97 03/30/20 05:00 41 L 14 97 03/30/20 04:30 43 L 12 94 03/30/20 04:12 34 L 15 122/49 L 97 03/30/20 04:00 41 L 12 03/30/20 03:30 36 L 16 96 03/30/20 03:11 40 L 15 105/37 L 96 03/30/20 03:00 36 L 13 92 03/30/20 02:30 39 L 14 93 03/30/20 02:11 41 L 12 109/54 L 96 03/30/20 02:08 155 H 03/30/20 02:00 36.8 C 31 L 18 109/54 L 95 03/30/20 01:54 36.8 C 31 L 20 109/54 L 95 03/30/20 01:46 46 L 13 89 L 03/30/20 01:45 43 L 12 100/45 L 98 03/30/20 01:31 42 L 19 95/43 L 94 03/30/20 01:30 43 L 16 03/30/20 01:25 43 L 13 98/47 L 94 03/30/20 01:15 37 L 14 94 03/30/20 01:02 38 L 14 100 03/30/20 01:01 35 L 14 101/40 L 98 03/30/20 01:00 42 L 14 98 03/30/20 00:47 48 L 16 96 Pulse Ox 03/30/20 11:00 03/30/20 06:00 03/30/20 05:30 03/30/20 05:11 03/30/20 05:00 03/30/20 04:30 03/30/20 04:12 03/30/20 04:00 03/30/20 03:30 03/30/20 03:11 03/30/20 03:00 03/30/20 02:30 03/30/20 02:11 03/30/20 02:08 03/30/20 02:00 03/30/20 01:54 95 03/30/20 01:46 03/30/20 01:45 03/30/20 01:31 03/30/20 01:30 03/30/20 01:25 03/30/20 01:15 03/30/20 01:02 03/30/20 01:01 03/30/20 01:00 03/30/20 00:47 Resident Activity Tracking Resident Involvement: Resident Care Provided Care Provided: Adult [facility] Medicine
[2020-03-30] MEDS ORDERED: HYDROCORTISONE HC 2.5% CRM 30GM TUBE EXT PRN (13:31)
[2020-03-30 15:22] LABS: BUN Creatinine Ratio 27.3 (10-20); Calcium 9.2 mg/dl (8.5-10.1); Creatinine Clr Calc Pharmacy 29.4 ml/min; Est GFR (African American) 23.2; Potassium 5.6 mmol/L (3.5-5.1)
[2020-03-30 19:30] LABS: BUN Creatinine Ratio 28.9 (10-20); Calcium 9.4 mg/dl (8.5-10.1); Creatinine Clr Calc Pharmacy 31.9 ml/min; Est GFR (African American) 25.6; Est GFR (Non-African American) 22.1; Potassium 4.7 mmol/L (3.5-5.1)
[2020-03-30] MEDS ORDERED: LACTULOSE SYRUP 20 GM/30 ML UDC PO SCH (21:00)
[2020-03-31] MEDS: cefTRIAXone SODIUM 2,000 MG in DEXTROSE 5% 50 ML IV SCH (04:46)
[2020-03-31 07:34] LABS: Basophils # (auto) 0.02 K/uL (0-0.2); Basophils % (auto) 0.2 %; Eosinophils # (auto) 0.11 K/uL (0-0.5); Eosinophils % (auto) 1.2 %; Hematocrit (blood only) 42.8 % (42-52); Hemoglobin 14.7 g/dL (14.0-18.0); Immature Granulocytes # (auto) 0.02 K/uL (0.00-0.02); Immature Granulocytes % (auto) 0.2 %; Lymphocytes % (auto) 15.7 %; Mean Corpuscular Hemoglobin 31.1 pg (25-34); Mean Corpuscular Hgb Conc 34.3 g/dL (32-36); Mean Corpuscular Volume 90.5 fL (80-100); Mean Platelet Volume 10.9 fL (7.4-10.4); Monocytes # (auto) 0.64 K/uL (0.11-0.59); Monocytes % (auto) 7.2 %; Neutrophils # (auto) 6.71 K/uL (1.4-6.5); Neutrophils % (auto) 75.5 %; Platelet Count 161 K/uL (130-400); RDW Coefficient of Variation 14.7 % (11.5-14.5); RDW Standard Deviation 49.1 fL (36.4-46.3); Red Blood Count 4.73 M/uL (4.7-6.1)
[2020-03-31] MEDS: allopurinoL 300 MG TAB PO SCH (07:46)
[2020-03-31] MEDS: DOXYCYCLINE HYCLATE 100 MG CAP PO SCH (07:46)
[2020-03-31] MEDS: ASPIRIN 81 MG ECTAB PO SCH (07:46)
[2020-03-31] MEDS: INSULIN ASPART 100 UNITS/ML 3 ML PEN SC SCH ×4 (07:47→20:40)
[2020-03-31] MEDS: ENOXAPARIN INJ 30 MG/0.3 ML SYR SQ SCH (07:47)
[2020-03-31 08:04] LABS: BUN Creatinine Ratio 32.3 (10-20); Calcium 9.1 mg/dl (8.5-10.1); Creatinine Clr Calc Pharmacy 42.9 ml/min; Est GFR (African American) 37.2; Est GFR (Non-African American) 32.1; Potassium 4.3 mmol/L (3.5-5.1)
--- NOTE | 2020-03-31 08:20 | Electrocardiogram Report ---
Test Reason : Blood Pressure : / mmHG Vent. 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
--- NOTE | 2020-03-31 08:58 | Electrocardiogram Report ---
Test Reason : Blood Pressure : / mmHG Vent. Rate : 043 BPM Atrial Rate : 045 BPM P-R Int : 000 ms QRS Dur : 124 ms QT Int : 466 ms P-R-T Axes : 000 -60 043 degrees QTc Int : 393 ms Junctional bradycardia Left axis deviation Inferior infarct , age undetermined Anterolateral infarct , age undetermined Abnormal ECG When compared with ECG of 07-MAR-2020 12:30, Wide QRS rhythm has replaced Sinus rhythm Vent. rate has decreased BY 44 BPM Confirmed by Chino Bai ([id number]) on 03/31/2020 8:57:48 AM Referred By: REFERRED SELF Confirmed By:Chino Bai
--- NOTE | 2020-03-31 09:08 | Electrocardiogram Report ---
Test Reason : Blood Pressure : / mmHG Vent. 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 rate has increased BY 43 BPM Confirmed by Tommy Torres ([id number]) on 03/31/2020 9:08:03 AM Referred By: REFERRED SELF Confirmed By:Tommy Torres
[2020-03-31] MEDS: COLESTIPOL HCL 1 GM TAB PO SCH ×2 (09:24→20:39)
[2020-03-31] MEDS: INSULIN GLARGINE SOLOSTAR 100 UNITS/ML 3 ML PEN SC SCH ×2 (09:24→20:40)
[2020-03-31] MEDS ORDERED: SODIUM CHLORIDE 0.9% 1000ML 1,000 ML IV SCH (09:45)
--- NOTE | 2020-03-31 10:41 | Nephrology Progress Note ---
Date of Service March 31, 2020 Assessment & Plan (1) Acute hyperkalemia: * Potassium has normalized w/ medical management * Avoid Spironolactone (2) Acute on chronic kidney failure: * Baseline Cr 1.3. Will provide 1L 0.9NS today and monitor kidney fun ction * Hold Lisinopril. Can restart if needed once creatinine has normalized * Monitor PRP Admission and Anticipated Discharge Date Admission Date: March 30, 2020 Subjective Mr. Peterson was seen and examined in his hospital room this morning. He tolerated Kayexelate therapy without GI upset or diarrhea. He currently denies angina or palpitations. He reports no new medical concerns. Review of Systems Constitutional: no fever and no weakness Eyes: no problem reported Ear, Nose, Mouth, Throat: no problem reported Respiratory: no cough and no dyspnea Cardiovascular: no chest pain, no palpitations and no edema Gastrointestinal: no abdominal pain and no diarrhea/loose stools Genitourinary: no dysuria, no urinary hesitancy and no hematuria Musculoskeletal: no back pain Integumentary: no rash Neurologic: no dizziness and no confusion Physical Exam Constitutional: no acute distress Eyes: PERRL, conjunctivae normal, anicteric sclerae ENMT: external ear and nose normal, oropharynx normal Neck: trachea midline, no thyromegaly Respiratory: normal respiratory effort, lungs clear to auscultation Cardiovascular: RRR, no murmur, no edema Gastrointestinal (Abdomen): normal bowel sounds, soft, nontender, no hepatospl enomegaly Musculoskeletal: Extremities: no cyanosis Skin: no rashes, warm and dry Neurologic: awake; not confused Results & Data ([facility]) Vital Signs (Past 12 Hours) Vital Signs Temp Pulse Resp BP BP Pulse Ox 03/31/20 07:19 36.5 C 88 20 121/71 95 03/31/20 03:00 36.6 C 86 16 114/70 97 03/30/20 23:37 36.5 C 90 16 95/63 L 95 Laboratory Tests 03/31/20 03/31/20 07:22 07:22 WBC 8.90 Hgb 14.7 Hct 42.8 Plt Count 161 Sodium 142 Potassium 4.3 Chloride 110 H Carbon Dioxide 25 BUN 64 H Creatinine 1.97 H D Glucose 121 H PG Care Time/CCT Total # of Minutes Spent Total Time Spent with Patient: Total time spent is greater than 50% in coordination of care (as documented) at patient's floor/unit and/or counseling patient: Coding Level of Care Code 95572 Subseq Hosp Care Lvl 3 Diagnoses Acute hyperkalemia E87.5 Acute on chronic kidney failure N17.9; N18.9
--- NOTE | 2020-03-31 10:45 | Medical Student Progress Note ---
Date of Service March 31, 2020 Assessment & Plan (1) Junctional bradycardia: Patient is a 75 year old male with a past medical history of CHF, CAD, and CKD who presented to the emergency department with abdominal pain and was found to have a HR in the 30s with EKG changes as well as hyperkalemia. After consultation with cardiology, the bradycardia likely seems secondary to his hyperkalemia, which seems secondary to the addition of spironolactone to his CHF regimen. Bradycardia - Patient's heart rate has come up to the 80s (was between 31-57 overnight) - EKG showed wide QRS complexes and "no discernable P waves" - Appreciate cardiology consult - "Junctional bradycardia" likely secondary to hyperkalemia (which in turn is likely secondary to diuretic treatment) - According to Dr. Bai, the wide complexes can be attributed to hy perkalemia and that this patient does not have a heart block - There was originally a consideration of a Lyme etiology because his Lyme IgM was positive, but his IgG was negative, he has no history of being outdoors in a wooded area, and he has no other symptoms (fever, rash, arthralgias) - Abx have been discontinued Hyperkalemia/Acute on chronic kidney failure - Potassium is downtrending; 7.2 on admission --> 5.4 at 11 AM today - Creatinine is downtrending; 3.72 on admission --> 2.72 at 11 AM today (baseline is closer to 1.3) - Abdomen/Pelvis CT unremarkable except for a mild sigmoid diverticulosis. - Appreciate nephrology consult - feels that both hyperkalemia and CIRILO are due to recent prescription of spironolactone on top of furosemide - administered calcium, sodium bicarb, 1 L NSS bolus, 100 mg furosemide - held lisinopril, spironolactone, dyazide - continue to monitor BMP, continue IVF (NSS) Congestive Heart Failure - no symptoms of exacerbation (dyspnea, fatigue, edema) - CXR showed an enlarged heart but otherwise unremarkable - Appreciate cardiology consult - Dr. Bai believes that spironolactone is not needed for this patient's CHF management and that it should be discontinued altogether DM II HbA1c 6.4 (as March) Holding home metformin. Placed on sliding scale insulin Gout Chronic, no acute flare. Continue allopurinol FEN/GI: NSS. Heart healthy low-potassium diet. DVT prophylaxis: Lovenox 40 mg SQ twice daily Full Code Dispo: ICU telemetry (2) Acute hyperkalemia: (3) Acute on chronic kidney failure: (4) Acute diastolic CHF (congestive heart failure): Subjective Patient reports feeling well today. He says that the symptoms he had prior to admission (stomach discomfort, cramping leg pain, leg muscle twitching) have resolved. Results & Data ([facility]) Vital Signs (Past 12 Hours) Vital Signs Temp Pulse Resp BP BP Pulse Ox 03/31/20 07:19 36.5 C 88 20 121/71 95 03/31/20 03:00 36.6 C 86 16 114/70 97 03/30/20 23:37 36.5 C 90 16 95/63 L 95
--- NOTE | 2020-03-31 10:47 | Medical Student Progress Note ---
Date of Service March 31, 2020 Assessment & Plan (1) Junctional bradycardia: Patient is a 75 year old male with a past medical history of CHF, CAD, and CKD who presented to the emergency department with abdominal pain and was found to have a HR in the 30s with EKG changes as well as hyperkalemia. After consultation with cardiology, the bradycardia likely seems secondary to his hyperkalemia, which seems secondary to the addition of spironolactone to his CHF regimen. Junctional bradycardia in setting of hyperkalemia - Bradycardia has resolved, HR in 80s Hyperkalemia w/ Acute on chronic kidney disease 2/2 diuretics - Potassium 4.3 - Creatinine 1.97 (baseline is 1.5) - Recently started on spironolactone while furosemide dose decreased as outpatient - Nephro consulted - feels that both hyperkalemia and CIRILO are due to recent prescription of spironolactone while he was also taking triamterene. - IV NSS for CIRILO - Hold lisinopril, spironolactone, triamterene Chronic systolic Congestive Heart Failure - EF 45-50% - No symptoms of exacerbation (dyspnea, fatigue, edema) - CXR showed an enlarged heart but otherwise unremarkable - Appreciate cardiology consult - Per cards spironolactone not needed for this patient's CHF management and should be discontinued altogether - Patient is followed outpatient by the heart failure clinic, has discussed changing dietary sodium - Patient should schedule outpatient dietitian appt for further dietary counseling DM II Most recent HbA1c 6.4 Holding home metformin. - Insulin SSI Gout Chronic, no acute flare. Continue allopurinol FEN/GI: NSS. Heart healthy low-potassium diet. DVT prophylaxis: Lovenox 30 mg SQ daily Full Code Dispo: PCU Present on Admission?: Yes (2) Acute hyperkalemia: (3) Acute on chronic kidney failure: (4) Acute diastolic CHF (congestive heart failure): Supervising Attestation Medical Student Supervision Note: I independently interviewed and examined the patient and verified the beltran history and physical, reviewed labs and image studies, discussed the case with Bianka Brothers and agree with the findings and care plan. No chest pain, shortness of breath HR in 80s. BP stable. K, creatinine level down. continue IVF to d/c spironolactone. to resume lisinopril as outpatient. anticipate d/c home in am Subjective Patient reports feeling well today. He says that the symptoms he had prior to admission (stomach discomfort, cramping leg pain, leg muscle twitching) have resolved. Review of Systems Cardiovascular: no chest pain, no dyspnea and no palpitations Musculoskeletal: no cramping pain, no twitching Physical Exam Constitutional: WD/WN, vitals as above Respiratory: normal respiratory effort, lungs clear to auscultation Cardiovascular: Rate/Rhythm: regular rate and regular rhythm Extremities: no pedal edema Results & Data ([facility]) Vital Signs (Past 12 Hours) Vital Signs Temp Pulse Resp BP BP Pulse Ox 03/31/20 07:19 36.5 C 88 20 121/71 95 03/31/20 03:00 36.6 C 86 16 114/70 97 03/30/20 23:37 36.5 C 90 16 95/63 L 95
[2020-04-01 07:47] LABS: BUN Creatinine Ratio 26.2 (10-20); Calcium 9.2 mg/dl (8.5-10.1); Creatinine Clr Calc Pharmacy 53.7 ml/min; Est GFR (African American) 48.5; Est GFR (Non-African American) 41.9
[2020-04-01] MEDS: INSULIN ASPART 100 UNITS/ML 3 ML PEN SC SCH ×2 (08:23→11:57)
[2020-04-01] MEDS: INSULIN GLARGINE SOLOSTAR 100 UNITS/ML 3 ML PEN SC SCH (08:24)
[2020-04-01] MEDS: ENOXAPARIN INJ 30 MG/0.3 ML SYR SQ SCH (08:25)
[2020-04-01] MEDS: ASPIRIN 81 MG ECTAB PO SCH (08:25)
[2020-04-01] MEDS: allopurinoL 300 MG TAB PO SCH (08:25)
[2020-04-01] MEDS ORDERED: FUROSEMIDE 40 MG TAB PO SCH (09:00)
[2020-04-01] MEDS: COLESTIPOL HCL 1 GM TAB PO SCH (10:42)
--- NOTE | 2020-04-01 10:55 | Cardiology Progress Note ---
Date of Service April 01, 2020 Assessment & Plan (1) Junctional bradycardia: On presentation he appeared to be in a junctional bradycardia with a somewhat wide complex although his complex had the same axis and morphology as his baseline several weeks ago. This is consistent with hyperkalemia causing a wide-complex, it is also likely that hyperkalemia inhibited his sinus function resulting in a junctional bradycardia. I do not see evidence of complete heart block. This has not recurred following correction of his potassium and I would not evaluate further. (2) Acute hyperkalemia: The cause of his hyperkalemia appears to be a combination of spironolactone, triamterene as well as a possible contribution of Lasix and hydrochlorothiazide resulting in renal insufficiency. He is not on a potassium supplement. I would not use spironolactone, I am not sure exactly why it was added. His LV function is diminished but not terribly so, I would probably avoid spironolactone in the future. He was doing well on Dyazide and that may be reasonable to continue in the future, although if it can be avoided without causing undue hypokalemia perhaps it would be safer but he may well need a potassium supplement in that case. (3) Acute on chronic kidney failure: He has chronic kidney disease, he had significant worsening of his creatinine this admission. That is probably due to either dehydration from diuresis or from his junctional bradycardia causing a decreased cardiac output. It is hard to tell the difference at this point, both will result in decreased perfusion of his kidneys. His kidney function has now returned to baseline, which is slightly diminished. (4) Diastolic CHF: He has a history of diastolic heart failure primarily, we need to be careful about over diuresis. Fluid management may be difficult over the long run as he may have very little change in volume to go from fluid overload to dehydration. He was doing well until he had the hyperkalemia as near as I can tell, therefore I would be inclined to send him home on the same heart failure medications except avoiding spironolactone and possibly Dyazide. He has a telephone visit scheduled for this coming Saturday, I advised him to keep it. (5) S/P coronary artery stent placement: He has coronary disease but that does not seem to be a factor in his presentation. Admission and Anticipated Discharge Date Admission Date: March 30, 2020 Subjective He is doing well today, he has none of the symptoms he had preceding his presentation. He is worried about some leg weakness that he had and a feeling of a slow heart rate which have not occurred since correction of his potassium. Physical Exam Physical Exam: Constitutional: Alert, cooperative and in no distress. HEENT: Unremarkable Neck: No jugular venous distention, carotid pulses are normal and equal bilaterally without bruits. Pulmonary: Clear to auscultation bilaterally. Cardiac: Regular rhythm with no murmur, gallop or rub. Abdomen: Soft, nontender with normal bowel sounds. Extremities: No edema. Distal pulses intact. Neurologic: No focal findings. Gait is steady. Skin: No rash, ecchymoses or petechiae. Results & Data ([facility]) Vital Signs (Past 12 Hours) Vital Signs Temp Pulse Pulse Resp BP BP Pulse Ox 04/01/20 07:34 36.5 C 92 H 20 116/76 97 04/01/20 02:47 36.5 C 87 16 99/67 L 93 04/01/20 00:00 79 03/31/20 23:11 36.5 C 93 H 18 107/68 94 Laboratory Results Comprehensive Metabolic Panel 04/01/20 04/01/20 Range/Units 06:51 08:30 Sodium 142 (136-145) mmol/L Potassium 4.0 (3.5-5.1) mmol/L Chloride 109 H (98-107) mmol/L Carbon Dioxide 26 (21-32) mmol/L BUN 41 H (7-18) mg/dl Creatinine 1.58 H D (0.6-1.4) mg/dl Glucose 111 H (70-99) mg/dl Calcium 9.2 (8.5-10.1) mg/dl Intake and Output 03/31/20 04/01/20 04/01/20 22:59 06:59 14:59 Intake Total 1560 / 2195 Output Total 1175 / 2276 500 / 2276 Balance 385 / -81 -500 / -81 Intake: IV 1000 / 1000 Nss 1000ML 1,000 ml @ 125 mls/ 1000 / 1000 hr IV .Q8H [place] Rx#:[id number] Oral 560 / 1195 Output: Urine 1175 / 2275 500 / 2275 Other: Weight 122.2 kg Diagnostic Findings Telemetry: Sinus rhythm, rate well controlled. PG Care Time/CCT Total # of Minutes Spent Total Time Spent with Patient: Total time spent is greater than 50% in coordination of care (as documented) at patient's floor/unit and/or counseling patient: Coding Level of Care Code 72506 Subseq Hosp Care Lvl 2 Diagnoses Junctional bradycardia R00.1 Acute hyperkalemia E87.5 Acute on chronic kidney failure N17.9; N18.9 Diastolic CHF I50.30 S/P coronary artery stent placement Z95.5
--- NOTE | 2020-04-01 11:08 | Nephrology Progress Note ---
Date of Service April 01, 2020 Assessment & Plan (1) Acute hyperkalemia: * Potassium has normalized w/ medical management * Avoid Spironolactone (2) Acute on chronic kidney failure: * Kidney function is nearing baseline * Volume status and electrolyte balance are acceptable * BP is acceptable. Defer whether to resume SOPHIE to Cardiology * No further Nephrology evaluation needed at this time. Will sign off. Please call if further assistance is needed Admission and Anticipated Discharge Date Admission Date: March 30, 2020 Subjective Mr. Peterson was seen and examined in his hospital room this morning. He denied angina or palpitations. He reports no new medical concerns. Review of Systems Constitutional: no fever and no weakness Eyes: no problem reported Ear, Nose, Mouth, Throat: no problem reported Respiratory: no cough and no dyspnea Cardiovascular: no chest pain, no palpitations and no edema Gastrointestinal: no abdominal pain Genitourinary: no urinary hesitancy and no hematuria Musculoskeletal: no back pain Integumentary: no rash Neurologic: no dizziness and no confusion Physical Exam Constitutional: no acute distress Eyes: PERRL, conjunctivae normal, anicteric sclerae ENMT: external ear and nose normal, oropharynx normal Neck: trachea midline, no thyromegaly Respiratory: normal respiratory effort, lungs clear to auscultation Cardiovascular: RRR, no murmur, no edema Gastrointestinal (Abdomen): normal bowel sounds, soft, nontender, no hepatosplenomegaly Musculoskeletal: Extremities: no cyanosis Skin: no rashes, warm and dry Neurologic: awake; not confused Results & Data ([facility]) Vital Signs (Past 12 Hours) Vital Signs Temp Pulse Pulse Resp BP BP Pulse Ox 04/01/20 07:34 36.5 C 92 H 20 116/76 97 04/01/20 02:47 36.5 C 87 16 99/67 L 93 04/01/20 00:00 79 03/31/20 23:11 36.5 C 93 H 18 107/68 94 Laboratory Results Laboratory Tests 04/01/20 04/01/20 06:51 08:30 Sodium 142 Potassium 4.0 Chloride 109 H Carbon Dioxide 26 BUN 41 H Creatinine 1.58 H D Glucose 111 H PG Care Time/CCT Total # of Minutes Spent Total Time Spent with Patient: Total time spent is greater than 50% in coordination of care (as documented) at patient's floor/unit and/or counseling patient: Coding Level of Care Code 84247 Subseq Hosp Care Lvl 3 Diagnoses Acute hyperkalemia E87.5 Acute on chronic kidney failure N17.9; N18.9
--- NOTE | 2020-04-01 14:49 | Discharge Summary ---
Date of Service April 01, 2020 Admission HPI Per Admitting Provider 75-year-old male with past medical history hypertension, dyslipidemia, CHF, coronary artery disease, type 2 diabetes mellitus, gout presents with concern of low heart rate and GI upset. Patient notes that he was recently discharged from hospital March 12, 2020 for acute CHF. On discharge he was started on spironolactone 25 mg. Additionally, at follow-up heart failure clinic appointment patient's Lasix was decreased to 40 mg from 60 mg. For the past few days patient notes GI upset with nausea and decreased appetite. He also states that he feels like his heart is going to stop. These symptoms in summation prom pted EMS call. EMS noted patient's heart rate to be in the 30s (wide-complex bradycardia with no discernible P waves) with systolic BP in 80s. Instructed to give atropine in the field with improvement of heart rate in the 40s and systolic blood pressure in 100s. Pt notes associated loose bowel movements and leg cramping. Patient otherwise denies any fevers, chills, vomiting, chest pain, shortness of breath, palpitations, syncope or near syncope, abdominal pain, known sick contacts or recent travel anywhere. Patient with no other acute concerns or complaints. Pertinent labs: WBC 11.8, sodium 129, potassium 7.2, BUN 93, creatinine 3.72, phosphorus 5.6, magnesium 2.9, BNP 4493, lipase 732, Trop negative EKG: Per my interpretation, wide-complex bradycardia with no discernible P waves. Suspect complete heart block. Chest x-ray: Mild venous congestion with no focal infiltrates Abdominal pelvic CT without contrast: Negative for any acute process ER course: IV calcium gluconate 2 g, IV insulin 10 units and dextrose, p.o. Kayexalate 15 g x 2, NSS 1 L, NSS at 125 Admission Exam Per Admitting Provider Constitutional: + ill appearing and + obese; no acute distress Eyes: PERRL, conjunctivae normal, anicteric sclerae ENMT: Mouth: + oral mucosal abnormality (Dry) Respiratory: normal respiratory effort, lungs clear to auscultation Cardiovascular: Rate/Rhythm: + bradycardic Gastrointestinal (Abdomen): normal bowel sounds, soft, nontender, no hepatosplenomegaly Percussion/Palpation: no guarding Skin: no rashes, warm and dry Psychiatric: A+Ox3, euthymic affect Genitourinary: Sam in place draining urine Lymphatic: + lymphedema (Trace lower extremity) Principal Diagnosis hyperkalemia Discharge Exam Constitutional WD/WN, vitals as above Eyes normal visual ascencio by confrontation and + anicteric sclerae Neck normal visual inspection and trachea midline Respiratory normal respiratory effort, lungs clear to auscultation Cardiovascular Rate/Rhythm: regular rate and regular rhythm Extremities: + edema (trace pitting edema) Gastrointestinal (Abdomen) Inspection/Auscultation: abdomen not distended Percussion/Palpation: abdomen soft; abdomen nontender Musculoskeletal Head/Neck/Chest: normocephalic and head atraumatic Skin no rashes, warm and dry Neurologic awake; not confused Speech / Cognition: normal speech Psychiatric A+Ox3, euthymic affect Discharge Data Allergies Allergy/AdvReac Type Severity Reaction Status Date / Time Lhbvvah-Zmn-Dtq Reductase AdvReac Intermediate MYALGIAS Verified 03/17/20 14:23 Inhibitor Consultations 03/29/20 22:53 ED Decision to Admit Stat 03/30/20 01:54 Consult Cardiology Routine Ordered Studies 03/29/20 22:08 CT abd pelvis wo con Urgent Hospital Course (1) Acute hyperkalemia: Patient is a 75 year old male with a past medical history of CHF, CAD, and CKD who presented to the emergency department with abdominal pain and was found to have a HR in the 30s with EKG changes as well as hyperkalemia. After consultation with cardiology, the bradycardia likely seems secondary to his hyperkalemia, which seems secondary to the addition of spironolactone to his CHF regimen. Junctional bradycardia in setting of hyperkalemia - Bradycardia resolved with treatment of Hyperkalemia. HR in 80s Hyperkalemia w/ Acute on chronic kidney disease 2/2 diuretics - hyperkalemia and CIRILO sec to recent prescription of spironolactone while he was also taking triamterene. - Potassium on admission 7.2 - Was treated with multiple dose of insulin, calcium gluconate, kayexalate, IVF. - Nephro consulted for possible need of dialysis when having junctional rhythm with elevated. - Creatinine improved with medical treatment. 1.58 on discharge (baseline is 1.5) - discontinued spironolactone, triamterene - reviewed low Potassium diet - BMP Saturday Chronic systolic Congestive Heart Failure - EF 45-50% - No symptoms of exacerbation (dyspnea, fatigue, edema) - CXR showed an enlarged heart but otherwise unremarkable - Patient is followed outpatient by the heart failure clinic, has discussed changing dietary sodium - Patient should schedule outpatient dietitian appt for further dietary counseling on Na and K DM II Most recent HbA1c 6.4 will continue home medication on discharge Gout Chronic, no acute flare. Continue allopurinol Total Time Total Time Spent Total Time Spent (In Minutes): see attending attestation Discharge Plan Discharge Items Patient Disposition: Home - Self-Care Reason For Visit: BRADYCARDIA, HYPERK Discharge Diagnosis: hyperkalemia resolved Activity: Per Instructions section Non-emergency contact: Primary Care Provider Call non-emergency contact if: your symptoms worsen Follow-up/Referrals: Sohan Lawler MD [Primary Care Provider] - Shaun Rodriguez MD [Resident] - 04/07/20 12:50 pm (Please follow up with Dr. Rodriguez at [facility] on 04/07/2020 at 12:50 pm. Please arrive to the office 15 minutes early for your appointment. *If you are unable to keep this appointment, please call the office at to reschedule. ) Diet: Heart Healthy, Low Potassium (2gm) and Low Sodium (2gm) Addtl Attending Provider Instructions: Elevated potassium You came to the hospital for muscle cramps and were found to have a elevated potassium level. This was thought to be related to your medication Spironolactone and Triamterene. We limited your intake of potassium, worked to ensure that you were getting fluid and having several bowel movements to clear the potassium from your body. You will need to ensure that the food that you eat does not contain added potass ium. You should also avoid high potassium foods that include: - sports drinks - fruits such as bananas, coconut, melon, kiwi, pedro, oranges, dried fruit, dates, prunes - milk - soups (read the labels) Heart failure You have a history of heart failure and we had cardiology see you while you were here in the hospital. You should resume your home medications as prescribed. You should set up an outpatient visit with a dietitian to work on decreasing sodium in your diet. Blood pressure You have had low blood pressures while in the hospital and we will hold your metoprolol until you have follow up to restart this. Follow up You will need to have the following follow up appointments: Primary care - in the next day or two Heart failure clinic - as soon as possible Dietitian - as soon as possible If you do not get a call to arrange this appointment please call to arrange it. Labs You will have a lab to get on Saturday prior to seeing your primary care doctor. Return precautions If you experience any of the following call or come in to get evaluated: - chest pain - palpitations, fast or irregular heart beats - cramps similar to what brought you in Pending Studies at Discharge: No Stand-Alone Forms: My [facility] [place] [address], Smoking Cessation Medications and DC Order Prescriptions: Continued isosorbide mononitrate 60 mg tablet extended release 24 hr 60 mg PO DAILY Qty: 90 RF: 3 colestipol 1 gram tablet 2 gm PO BID Qty: 360 RF: 3 nitroglycerin 0.4 mg tablet, sublingual 0.4 mg SL Q5M PRN (Reason: chest pain) Qty: 25 RF: 0 aspirin 81 mg tablet 81 mg PO DAILY RF: 0 metformin 500 mg tablet 500 mg PO BID RF: 0 lisinopril 20 mg tablet 20 mg PO BID RF: 0 allopurinol 300 mg tablet 300 mg PO DAILY RF: 0 PreserVision AREDS [id number],[id number] ufie-[id number] capsule 1 cap PO BID RF: 0 Centrum Silver Men 300-600-300 mcg tablet 1 tab PO DAILY RF: 0 omega 5-wfx-bpk-fish oil [Fish Oil] 1,000 mg (120 mg-180 mg) capsule 1 cap PO DAILY RF: 0 clotrimazole [Antifungal (clotrimazole)] 1 % cream 1 appln TOP BID PRN (Reason: break outs) RF: 0 triamcinolone acetonide [Nasacort] 55 mcg aerosol,spray 1 sprays INTNAS DAILY RF: 0 turmeric root extract 500 mg capsule 1,000 mg PO DAILY RF: 0 furosemide [Lasix] 40 mg tablet 40 mg PO DAILY Qty: 90 RF: 3 Discontinued triamterene-hydrochlorothiazid 37.5-25 mg tablet 1 tab PO DAILY RF: 0 metoprolol succinate 200 mg tablet extended release 24 hr 200 mg PO DAILY RF: 0 spironolactone 25 mg tablet 25 mg PO QAM Qty: 90 RF: 3 Discharge Orders: Discharge Order (Routine); Ordered 04/01/20 Ordered By: Lazaro Moreno/Other Patient Handouts: Tips for Using Less Salt, Low-Salt Choices, Heart Failure Making Changes to Your Diet, Heart Failure Dc, Hyperkalemia Dc, Understanding Bradycardia Admission Data Admit Date/Time: 03/30/20 01:31 Attending Provider: Serena Garces Admit Provider: Alex Gutierrez Primary Care Provider: Sohan Lawler Other Providers: Mary Sharp ; Chino Bai ; Galo Villela Other Interventions: Discharge Summary Assessment (RN) Last Done: 04/01/20 12:16 DC Date/Time DO NOT enter until pt leaves facility: 04/01/20 13:46 Supervising Physician Co-Signing Physician Notes Resident Physician Supervision Note: I independently interviewed and examined the patient and verified the beltran history and physical, reviewed labs and image studies, discussed the case with the resident Dr. Klien and agree with the findings and care plan. Time spent in discharge 35 min CBC Results Results Complete Blood Count Results: RBC 4.73 M/uL (4.7-6.1) 03/31/20 WBC 8.90 K/uL (4.8-10.8) 03/31/20 Hgb 14.7 g/dL (14.0-18.0) 03/31/20 Hct 42.8 % (42-52) 03/31/20 Plt Count 161 K/uL (130-400) 03/31/20 Results BMP Results: Sodium 142 mmol/L (136-145) 04/01/20 Potassium 4.0 mmol/L (3.5-5.1) 04/01/20 Chloride 109 mmol/L (98-107) H 04/01/20 BUN 41 mg/dl (7-18) H 04/01/20 Creatinine 1.58 mg/dl (0.6-1.4) H 04/01/20 Glucose 111 mg/dl (70-99) H 04/01/20 Resident Activity Tracking Resident Involvement: Resident Care Provided Care Provided: [facility]
[2020-04-01 16:29] LABS: 18KDIGG Band NON-REACTIVE; 23KDIGG Band NON-REACTIVE; 23KDIGM Band NON-REACTIVE; 28KDIGG Band NON-REACTIVE; 30KDIGG Band NON-REACTIVE; 39KDIGG Band NON-REACTIVE; 39KDIGM Band NON-REACTIVE; 41KDIGG Band REACTIVE; 41KDIGM Band NON-REACTIVE; 45KDIGG Band NON-REACTIVE; 58KDIGG Band NON-REACTIVE; 66KDIGG Band NON-REACTIVE; 93KDIGG Band NON-REACTIVE; Lyme Antibodies, WB IgG NEGATIVE (NEGATIVE); Lyme Antibodies, WB IgM NEGATIVE (NEGATIVE)
--- NOTE | 2020-04-02 07:02 | Electrocardiogram Report ---
Test Reason : Blood Pressure : / mmHG Vent. Rate : 101 BPM Atrial Rate : 101 BPM P-R Int : 240 ms QRS Dur : 108 ms QT Int : 344 ms P-R-T Axes : 000 -60 089 degrees QTc Int : 446 ms Sinus tachycardia with 1st degree A-V block Left axis deviation Inferior infarct (cited on or before 04-AUG-2007) Anterolateral infarct (cited on or before 04-AUG-2007) Abnormal ECG When compared with ECG of 31-MAR-2020 06:40, Premature ventricular complexes are no longer Present Inverted T waves have replaced nonspecific T wave abnormality in Lateral leads Confirmed by Chino Bai ([id number]) on 04/02/2020 7:01:37 AM Referred By: REFERRED SELF Confirmed By:Chino Bai
== END 2020-04-01 13:46 | disposition home or self-care (01) | DRG 683 ==
LOC: ED 21:42 → SUATTDRO 03-30 01:31 → 1E 03-30 01:31 → 2S 03-30 17:21

== ENCOUNTER 2020-08-22 13:56 | Inpatient (IN) ==
[2020-08-22] MEDS ORDERED: NITROGLYCERIN SL 0.4 MG/TAB TAB SL STA (14:08)
[2020-08-22 14:30] LABS: Basophils # (auto) 0.01 K/uL (0-0.2); Basophils % (auto) 0.1 %; Eosinophils # (auto) 0.02 K/uL (0-0.5); Eosinophils % (auto) 0.2 %; Hematocrit (blood only) 44.4 % (42-52); Hemoglobin 15.1 g/dL (14.0-18.0); Immature Granulocytes # (auto) 0.03 K/uL (0.00-0.02); Immature Granulocytes % (auto) 0.2 %; Lymphocytes # (auto) 0.96 K/uL (1.2-3.4); Mean Corpuscular Hemoglobin 31.7 pg (25-34); Mean Corpuscular Volume 93.3 fL (80-100); Mean Platelet Volume 10.2 fL (7.4-10.4); Monocytes # (auto) 0.53 K/uL (0.11-0.59); Monocytes % (auto) 4.4 %; Neutrophils # (auto) 10.48 K/uL (1.4-6.5); Neutrophils % (auto) 87.1 %; Platelet Count 223 K/uL (130-400); RDW Coefficient of Variation 14.4 % (11.5-14.5); RDW Standard Deviation 48.7 fL (36.4-46.3); Red Blood Count 4.76 M/uL (4.7-6.1); White Blood Count 12.03 K/uL (4.8-10.8)
[2020-08-22 14:41] LABS: Partial Thromboplastin Time 27.6 Seconds (21.0-31.0); Prothrombin Time 10.7 Seconds (9.0-12.0)
[2020-08-22 14:48] LABS: Albumin Level 3.9 gm/dl (3.4-5.0); BUN Creatinine Ratio 12.9 (10-20); Calcium 9.3 mg/dl (8.5-10.1); Creatinine Clr Calc Pharmacy 64.1 ml/min; Est GFR (African American) 60.9; Est GFR (Non-African American) 52.5
[2020-08-22 15:08] LABS: Albumin Globulin Ratio 1.1 (0.9-2); Bilirubin,Total 0.4 mg/dl (0.2-1); Globulin 3.7 gm/dl (2.5-4.0); Total Protein 7.6 gm/dl (6.4-8.2); Troponin I 3.83 ng/ml (0-0.045)
--- NOTE | 2020-08-22 15:13 | XRay Report ---
SINGLE VIEW CHEST CLINICAL HISTORY: Atypical chest pain. FINDINGS: 2 AP, portable, upright chest radiographs are compared to study dated 03/29/2020 and correla phi with chest CT dated 03/07/2020. The heart is enlarged noting atherosclerotic calcification of the t horacic aorta. There is prominence of the pulmonary vasculature. Chronic interstitial thickening is s imilar to previous. Mild scarring/atelectasis is seen at the lung bases. No airspace consolidation or large pleural effusion is identified. No pneumothorax is seen. The skeletal structures are osteopeni c. The bony thorax is grossly intact. IMPRESSION: 1. Cardiomegaly with prominence of the pulmonary vasculature. Correlate clinically for evidence of mi ld congestive failure. 2. No airspace consolidation or large pleural effusion is identified. ACT 112: Negative or not required by law. Electronically signed by: Nikolai Bacon M.D. 08/22/2020 3:11 PM
[2020-08-22] MEDS ORDERED: Heparin IV Low Dose WITH Bolus IV STA (15:25)
[2020-08-22] MEDS ORDERED: NITROGLYCERIN 2% OINTMENT 30GM TUBE EXT STA (15:27)
[2020-08-22] MEDS ORDERED: HEPARIN SOD (PORCINE) 1000 UNIT/ML 10 ML VIAL ONE (15:44)
[2020-08-22] MEDS: HEPARIN SODIUM/DEXTROSE 25,000 UNITS/500 ML BAG IV SCH (15:55)
--- NOTE | 2020-08-22 17:13 | History & Physical Report ---
Date of Service August 22, 2020 Assessment & Plan (1) NSTEMI (non-ST elevated myocardial infarction): Mr. Peterson is a 75-year-old male with a history of CAD s/p Anterior DC 08/04/2007 (s/p 3.5 x 15 mm Stent in early mid LAD), 70% Ostial LCx stenosis, Subtotal Distal RCA stenosis, Ischemic Cardiomyopathy (LVEF 45% to 50%), Type 2 Diabetes Mellitus, Hypertension, Dyslipidemia (intolerant of statin therapy), and Chronic Diastolic CHF who woke up this morning with a relatively severe chest pressure and elevated BP readings. Patient subsequently took his usual morning medications and his chest pressure gradually improved. He contacted his mix chemist's office with concern about his BP readings and was advised to take an extra Metoprolol -- which he did. His BP improved, but he's continued to experience a low-level chest pressure off and on throughout the day rated a 1 or 2/10. Chest pressure is associated with nausea and diaphoresis and is reminiscent of his prior anginal complaints. It gets slightly worse with exertion. His breathing has been stable and his body weight has been holding steady. His presenting symptoms and elevated troponin I level are consistent with an NSTEMI and his BP remains elevated. Recommend the following: -- Admit to telemetry. -- Heparin drip. -- Nitroglycerin transdermal. -- Aspirin 81 mg x 3 tabs now, then 81 mg daily. -- Toprol XL 100 mg daily. -- Lisinopril 40 mg daily. -- Isosorbide Mononitrate 60 mg daily. -- Sublingual Nitroglycerin as needed. -- Add Amlodipine 5 mg now and then q a.m. for better BP control. -- Patient is statin intolerant, would recommend Repatha 140 mg subcutaneous injection twice monthly if insurance will cover it. -- NPO after midnight except medications. -- Hold Metformin. -- Cardiac Catheterization/Coronary Angiography tomorrow with Vaibhav Nicholas. (2) CAD, multiple vessel: -- As outlined above. (3) Hypertension: -- Continue usual medications along with Amlodipine 5 mg. (4) Hyperlipidemia: -- Patient is statin intolerant, would recommend Repatha 140 mg subcutaneous injection twice monthly if insurance will cover it. -- Continue Myton 3 fish oil capsules. (5) Type 2 diabetes mellitus: -- Hold Metformin due to risk of renal toxicity. -- BSG checks with SSI. (6) Diastolic CHF: -- Currently appears euvolemic. -- Monitor daily I&O's and body weights. -- Continue Lasix 40 mg daily with an extra 40 mg prn for weight gain, edema, or SOB. History of Present Illness Chief Complaint: -- Chest pressure/NSTEMI. -- CAD. -- Chronic Diastolic CHF. Primary Care Provider: Sohan Lawler MD Mr. Peterson is a 75-year-old male with a history of CAD s/p Anterior DC 08/04/2007 (s/p 3.5 x 15 mm Stent in early mid LAD), 70% Ostial LCx stenosis, Subtotal Distal RCA stenosis, Ischemic Cardiomyopathy (LVEF 45% to 50%), Type 2 Diabetes Mellitus, Hypertension, Dyslipidemia (intolerant of statin therapy), and Chronic Diastolic CHF who woke up this morning with a relatively severe chest pressure and elevated BP readings. Patient subsequently took his usual morning medications and his chest pressure gradually improved. He contacted his mix chemist's office with concern about his BP readings and was advised to take an extra Metoprolol -- which he did. His BP improved, but he's continued to experience a low-level chest pressure off and on throughout the day rated a 1 or 2/10. Chest pressure is associated with nausea and diaphoresis and is reminiscent of his prior anginal complaints. It gets slightly worse with exertion. His breathing has been stable and his body weight has been holding steady. He is closely followed by [facility] Heart Failure [facility]. HISTORICAL BACKGROUND: History of coronary artery disease dates back to an Anterior DC August 04, 2007. Cardiac Catheterization at that time revealed total early mid LAD occlusion. Subsequent deployment of 3.5 x 15 mm bare metal stent. 70% Ostial LCx stenosis. Subtotal distal RCA stenosis. History of bilateral pulmonary emboli April 2010. History of diabetes mellitus, dyslipidemia, and hypertension. Intolerant of statin therapy. Dobutamine stress echocardiogram negative for myocardial ischemia at 87% MPHR 09/2010. Dobutamine Stress Echocardiogram 2012 negative for evidence of myocardial ischemia. Resting LV ejection fraction 35% -- anteroseptal, apical, anterolateral, and anterior akinesis. He was admitted from 03/07/2020 through 03/12/20 for newly diagnosed acute diastolic congestive heart failure. He presented with shortness of breath. He was hypervolemic on exam. He responded well to diuretics, net negative 4 L during admission. Patient was referred to the heart failure program upon discharge. He was discharged on Spironolactone 25 mg daily and Lasix 60 mg daily. 03/08/2020 Echo: Normal LV size, EF 45%-50%. Hypokinesis of inferior wall, basal inferoseptum, distal anterior, and basal anteroseptal wall. Akinesis of mid anteroseptum and mid to distal inferoseptum. Fellows is hypokinetic to akinetic. No LVH. Mild RV dilation with normal function. Mild biatrial dilation. Mild mitral regurgitation. No change from 2018. Patient was then evaluated with the heart failure program on 03/17/20. At that time he was feeling well without heart failure symptoms. Dry weight was 275 lb. Labs demonstrated slight azotemia and Lasix was decreased from 60 mg to 40 mg daily. Patient was readmitted from 03/30/20 through 04/01/20 for symptomatic bradycardia secondary to hyperkalemia. He was treated with multiple dose of insulin, calcium gluconate, kayexalate, IVF. HCTZ, Spironolactone were held on discharge. Follow up labs demonstrated stable electrolytes and kidney function. Allergies Allergy/AdvReac Type Severity Reaction Status Date / Time spironolactone AdvReac Severe Increased Verified 08/22/20 16:44 K, decreased HR Ojwrxhb-Nxt-Ahp Reductase AdvReac Intermediate MYALGIAS Verified 08/22/20 16:44 Inhibitor Home Medications Medication Instructions Recorded Confirmed Type allopurinol 300 mg tablet 300 mg PO DAILY tab 05/11/19 08/22/20 History lisinopril 20 mg tablet 40 mg PO QAM tab 05/11/19 08/22/20 History metformin 500 mg tablet 500 mg PO BIDM tab 05/11/19 08/22/20 History visivahh-yie-ltzpi acid 300 1 tab PO DAILY 05/11/19 08/22/20 History mcg-lycopene 600 mcg-lutein 300 mcg tablet vitamins A,C,H-pmte-xlufsm 14,320 1 cap PO BID 05/11/19 08/22/20 History unit-226 mg-200 unit capsule omega 0-qbs-noc-fish oil 1,000 mg 1 cap PO DAILY 05/20/19 08/22/20 History (120 mg-180 mg) capsule isosorbide mononitrate 60 mg 60 mg PO DAILY #90 tab 10/08/19 08/22/20 Rx tablet,extended release 24 hr clotrimazole 1 % topical cream 1 appln TOP BID PRN 03/17/20 08/22/20 History triamcinolone acetonide 55 mcg 1 sprays INTNAS DAILY 03/17/20 08/22/20 History nasal spray aerosol nitroglycerin 0.4 mg sublingual 0.4 mg SL Q5M PRN #25 tab 04/05/20 08/22/20 Rx tablet Blue Emu Cream 1 applic TOPICAL TID PRN 06/21/20 08/22/20 History naproxen sodium 220 mg tablet 220 mg PO Q12H PRN 06/21/20 08/22/20 History aspirin [Aspir-Low] 81 mg PO DAILY 08/22/20 08/22/20 History colestipol 2 g PO QPM 08/22/20 08/22/20 History furosemide [Lasix] 40 - 80 mg PO QAM 08/22/20 08/22/20 History metoprolol succinate 100 mg PO DAILY 08/22/20 08/22/20 History Past Med/Surg History Medical History Acute diastolic CHF (congestive heart failure) Ankle pain Arthritis of Back and Knees Bronchitis Chest pain, rule out acute myocardial infarction Coronary artery disease Fall Gout of ankle Hyperlipidemia Hypertension Left foot pain Leg edema, right Low back pain Lyme disease Past heart attack Pulmonary embolism Tinea corporis Type 2 diabetes mellitus Surgical History History of prostate biopsy S/P coronary artery stent placement Family History Family/Other Prostate cancer Father Heart disease Mother Bone cancer Sister Colon cancer Social History Smoking Status: Never smoker Second Hand Exposure: No; Do You Dip or Chew Tobacco: No; Tobacco Cessation Education Requested by Patient: No Hx Alcohol Use: Yes Alcohol type: wine Hx Substance Use: No Preferred Language: Sierra Leonean Communication Ability: Effective 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 General: Patient in no acute distress. HEENT: Head is atraumatic, normocephalic. EOMs intact. Sclera anicteric. Facies symmetric. No perioral cyanosis. Neck: No JVD. Carotid upstrokes +2 bilaterally without bruits. Jugular venous pressure is at the level of the clavicle sitting upright. Chest and Lungs: Clear to auscultation throughout all lung ascencio, no wheezes, rales, or rhonchi. CVS: S1 and S2 are regular without obvious murmurs, gallops, or rubs. PMI is nonpalpable. No lifts, heaves, or thrills. No abdominal aortic or renal bruits. Abdominal Exam: Bowel sounds present. No masses, organomegaly, or tenderness. Extremities: No clubbing or cyanosis. Radial pulses +2 bilaterally, Fab's test positive for both right radial and ulnar arterial reflow. Trace to +1 bilateral pretibial edema. Neurologic Exam: Patient is awake, alert, and oriented. Pleasant and cooperative. Answers questions appropriately. Speech is clear. Normal movement in all 4 extremities. Results & Data Results & Data ([facility]) Vital Signs (Past 12 Hours) Vital Signs Temp Pulse Resp BP Pulse Ox 08/22/20 16:01 94 08/22/20 16:00 94 H 22 154/100 H 93 08/22/20 15:30 89 24 158/97 H 94 08/22/20 15:01 93 H 15 268/117 H 93 08/22/20 15:00 95 H 17 94 08/22/20 14:50 95 H 20 144/101 H 93 08/22/20 14:45 11 L 161/102 H 92 08/22/20 14:40 19 162/107 H 91 08/22/20 14:35 91 H 15 149/94 H 91 08/22/20 14:30 100 H 18 163/109 H 92 08/22/20 14:28 95 H 14 164/106 H 93 08/22/20 14:20 104 H 19 91 08/22/20 14:15 97 H 15 94 08/22/20 14:07 36.9 C 99 H 29 H 191/139 H 94 Laboratory Results Laboratory Results - last 24 hr 08/22/20 08/22/20 08/22/20 14:11 14:11 14:11 WBC 12.03 H RBC 4.76 Hgb 15.1 Hct 44.4 MCV 93.3 MCH 31.7 MCHC 34.0 RDW Std Deviation 48.7 H RDW Coeff of Jeff 14.4 Plt Count 223 MPV 10.2 Immature Gran % (Auto) 0.2 Neut % (Auto) 87.1 Lymph % (Auto) 8.0 [place] % (Auto) 4.4 Eos % (Auto) 0.2 Baso % (Auto) 0.1 Neut # (Auto) 10.48 H Lymph # (Auto) 0.96 L [place] # (Auto) 0.53 Eos # (Auto) 0.02 Baso # (Auto) 0.01 Immature Gran # (Auto) 0.03 H PT 10.7 INR 1.0 APTT 27.6 PTT Ratio 1.0 Sodium 139 Potassium 4.0 Chloride 106 Carbon Dioxide 25 Anion Gap 8.0 BUN 17 Creatinine 1.31 Est Cr Clr Drug Dosing 64.1 Est GFR ( Amer) 60.9 Est GFR (Non-Af Amer) 52.5 BUN/Creatinine Ratio 12.9 Glucose 153 H Calcium 9.3 Total Bilirubin 0.4 AST 52 H ALT 21 Alkaline Phosphatase 93 Troponin I 3.830 H* Total Protein 7.6 Albumin 3.9 Globulin 3.7 Albumin/Globulin Ratio 1.1 Lipase 178 SARS-CoV-2 Ag (Rapid) 08/22/20 16:31 WBC RBC Hgb Hct MCV MCH MCHC RDW Std Deviation RDW Coeff of Jeff Plt Count MPV Immature Gran % (Auto) Neut % (Auto) Lymph % (Auto) [place] % (Auto) Eos % (Auto) Baso % (Auto) Neut # (Auto) Lymph # (Auto) [place] # (Auto) Eos # (Auto) Baso # (Auto) Immature Gran # (Auto) PT INR APTT PTT Ratio Sodium Potassium Chloride Carbon Dioxide Anion Gap BUN Creatinine Est Cr Clr Drug Dosing Est GFR ( Amer) Est GFR (Non-Af Amer) BUN/Creatinine Ratio Glucose Calcium Total Bilirubin AST ALT Alkaline Phosphatase Troponin I Total Protein Albumin Globulin Albumin/Globulin Ratio Lipase SARS-CoV-2 Ag (Rapid) Negative Medications Administered Active Medications Generic Name Dose Route Start Last Admin Trade Name Freq PRN Reason Stop Dose Admin Amlodipine Besylate 5 mg 08/22/20 17:05 Amlodipine Besylate 5 Mg Tab PO 08/22/20 17:06 NOW ONE Amlodipine Besylate 5 mg 08/23/20 09:00 Amlodipine Besylate 5 Mg Tab PO 09/22/20 08:59 QAM NAPOLEON Heparin Sodium/Dextrose 25,000 units in 500 mls @ 20 mls/hr 08/22/20 15:30 08/22/20 15:55 Heparin Sodium/Dextrose IV 09/21/20 15:29 1,000 units/hr .Q24H NAPOLEON 20 mls/hr Administration Protocol 1,000 UNITS/HR Code Status & VTE Plan Code Status Full code VTE Prophylaxis Plan VTE Prophylaxis will be ordered: Yes Supervising Physician Co-Signing Physician Notes I personally saw and examined the patient. I verified all beltran points and agree with RAUL Galeana with the following exceptions and/or additions: 75 yo male with known CAD who presents to the ER with substernal chest pain that started this morning, associated shortness of breath, nausea. Initially 8/10 severity, currently 2/10. Already seen by cardiology and recommend cardiac cath tomorrow as long as pain not increasing. O/E bibasal crackles, HS 1+2 RRR, no murmurs, Abdo SNT, BS +ve A/P NSTEMI ASA 324mg given via EMS, continue 81mg PO daily, no clopidogrel per cardiology recommendations IV heparin bolus and drip Continue current dose of metoprolol and add amlodipine per cardiology recommendations for hypertension in setting of NSTEMI Continue nitro paste per cardiology recommendations but will increase to 2 inch. No statin due to prior intolerance - consider PCSK9 inhibitor as outpatient Lipid panel and HbA1C with AM labs NPO after midnight PG Care Time/CCT Total # of Minutes Spent Total Time Spent with Patient: Total time spent is greater than 50% in coordination of care (as documented) at patient's floor/unit and/or counseling patient:35 Coding Level of Care Code 55428 Initial Inpt Care Lvl 3 Diagnoses NSTEMI (non-ST elevated myocardial infarction) I21.4 CAD, multiple vessel I25.10 Hypertension I10 Hyperlipidemia E78.5 Type 2 diabetes mellitus E11.9 Diastolic CHF I50.30
--- NOTE | 2020-08-22 17:19 | Cardiology Consultation ---
Date of Consultation August 22, 2020 Assessment & Plan (1) NSTEMI (non-ST elevated myocardial infarction): 2. History of coronary artery disease post prior anterior ID 2006. Known residual ostial circumflex, distal RCA disease. 3. Ischemic cardiomyopathyLVEF 45 to 50%, hypokinetic inferior wall wall, akinetic apex. 4. Chronic diastolic heart failure 5. Type 2 diabetes 6. Hypertension 7. Dyslipidemiastatin intolerance 8. Chronic renal insufficiency Patient here with acute onset chest pain and elevated troponin consistent with NSTEMI. Patient at elevated risk for adverse cardiac events and recommend invasive risk stratification with cardiac catheterization. At present patient with minimal residual discomfort, hemodynamically and electrically stable. No need for urgent catheterization at this time and will plan to perform procedure tomorrow via right radial artery. In the interim continue heparin infusion. Continue current Nitropaste. Resume home Toprol-XL, lisinopril and would add amlodipine. Continue aspirin. We will hold off on clopidogrel in the setting of diabetes and possible multivessel disease. Please keep n.p.o. after midnight. Please contact if recurrent severe chest discomfort overnight. Further recommendations pending findings of cathete rization. History of Present Illness History of Present Illness Mr. Peterson is a very pleasant 75-year-old man with a history of coronary artery disease post anterior ID in 2006 (residual 70% ostial circumflex, diffuse subtotal RCA disease at that time) chronic diastolic heart failure, hypertension, type 2 diabetes on oral therapy, remote VTE admitted with acute onset chest pain with elevated troponin consistent with NSTEMI. Patient is followed by Dr. Canchola for his cardiac care as well as the heart failure clinic. Most recent heart failure hospitalization back in March. Last seen in office 6 days ago at which time was stable on maintenance Lasix 80 mg daily. Patient reports that he was doing well up until this morning when after waking noted chest pressure, at its worse 6 out of 10 with some associated nausea. States pain improved when he took all of his morning medications. Noted that his blood pressure this a.m. was up to the high 170s. Chest pressure somewhat reminiscent of his prior ID. States that with walking during the day today has noted increase shortness of breath. No palpitations, presyncope, worsening lower extremity edema. States weights have been stable. On arrival blood pressure initially in the 190s.. ECG showed sinus rhythm with old inferior, anterolateral infarct but no dynamic ST changes. Troponin elevated at 3.83. Chest x-ray with minimal congestion. Started on heparin infusion, Nitropaste, previously took full dose aspirin. At time of interview patient states feeling better. Minimal residual chest pressure may be 1 out of 10. Prior cardiac studies: Cardiac catheterization 08/2007 -- revealed total early mid LAD occlusion. Subsequent deployment of 3.5 x 15 mm bare metal stent. 70% ostial left circumflex stenosis. Subtotal distal RCA stenosis. 03/08/20 Echo: Normal LV size, EF 45-50%. Hypokinesis of inferior wall, basal inferoseptum, distal anterior, and basal anteroseptal wall. Akinesis of mid anteroseptum and mid to distal inferoseptum. [place] is hypokinetic to akinetic. No LVH. Mild RV dilation with normal function. Mild biatrial dilation. Mild mitral regurgitation. No change from 2018. Social history: Retired, previously worked for an [employer] company near [place]. Single. Denies tobacco. Family history: Father of an ID at age 60. Allergies Allergy/AdvReac Type Severity Reaction Status Date / Time spironolactone AdvReac Severe Increased Verified 08/22/20 16:44 K, decreased HR Mhqipmu-Iim-Mhi Reductase AdvReac Intermediate MYALGIAS Verified 08/22/20 16:44 Inhibitor Home Medications Medication Instructions Recorded Confirmed Type allopurinol 300 mg tablet 300 mg PO DAILY tab 05/11/19 08/22/20 History lisinopril 20 mg tablet 40 mg PO QAM tab 05/11/19 08/22/20 History metformin 500 mg tablet 500 mg PO BIDM tab 05/11/19 08/22/20 History mnjmgcee-opj-tceos acid 300 1 tab PO DAILY 05/11/19 08/22/20 History mcg-lycopene 600 mcg-lutein 300 mcg tablet vitamins A,C,J-nlkb-ovhmqw 14,320 1 cap PO BID 05/11/19 08/22/20 History unit-226 mg-200 unit capsule omega 7-tif-sfu-fish oil 1,000 mg 1 cap PO DAILY 05/20/19 08/22/20 History (120 mg-180 mg) capsule isosorbide mononitrate 60 mg 60 mg PO DAILY #90 tab 10/08/19 08/22/20 Rx tablet,extended release 24 hr clotrimazole 1 % topical cream 1 appln TOP BID PRN 03/17/20 08/22/20 History triamcinolone acetonide 55 mcg 1 sprays INTNAS DAILY 03/17/20 08/22/20 History nasal spray aerosol nitroglycerin 0.4 mg sublingual 0.4 mg SL Q5M PRN #25 tab 04/05/20 08/22/20 Rx tablet Blue Emu Cream 1 applic TOPICAL TID PRN 06/21/20 08/22/20 History naproxen sodium 220 mg tablet 220 mg PO Q12H PRN 06/21/20 08/22/20 History aspirin [Aspir-Low] 81 mg PO DAILY 08/22/20 08/22/20 History colestipol 2 g PO QPM 08/22/20 08/22/20 History furosemide [Lasix] 40 - 80 mg PO QAM 08/22/20 08/22/20 History metoprolol succinate 100 mg PO DAILY 08/22/20 08/22/20 History Patient History Medical History (Updated 08/22/20 @ 17:12 by Jeffry Peterson MD) Acute diastolic CHF (congestive heart failure) Ankle pain Arthritis of Back and Knees Bronchitis Chest pain, rule out acute myocardial infarction Coronary artery disease Fall Gout of ankle Hyperlipidemia Hypertension Left foot pain Leg edema, right Low back pain Lyme disease Past heart attack Pulmonary embolism Tinea corporis Type 2 diabetes mellitus Surgical History History of prostate biopsy S/P coronary artery stent placement Family History Family/Other Prostate cancer Father Heart disease Mother Bone cancer Sister Colon cancer Social History Smoking Status: Never smoker Second Hand Exposure: No; Hx Alcohol Use: No Hx Substance Use: No Preferred Language: Swedish Communication Ability: Effective 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 Cardiac: Regular rate and rhythm, no murmurs. No JVD. Abdomen: Soft, nontender, nondistended, positive bowel sounds. Extremities: Warm, well perfused, trace edema 2+ radial pulses, 2+ DP pulses bilaterally Skin: No rashes or lesions. Neuro: Nonfocal Psych: Alert orient x3, normal affect and mood Results & Data ([facility]) Vital Signs (Past 12 Hours) Vital Signs Temp Pulse Resp BP Pulse Ox 08/22/20 16:01 94 08/22/20 16:00 94 H 22 154/100 H 93 08/22/20 15:30 89 24 158/97 H 94 08/22/20 15:01 93 H 15 268/117 H 93 08/22/20 15:00 95 H 17 94 08/22/20 14:50 95 H 20 144/101 H 93 08/22/20 14:45 11 L 161/102 H 92 08/22/20 14:40 19 162/107 H 91 08/22/20 14:35 91 H 15 149/94 H 91 08/22/20 14:30 100 H 18 163/109 H 92 08/22/20 14:28 95 H 14 164/106 H 93 08/22/20 14:20 104 H 19 91 08/22/20 14:15 97 H 15 94 08/22/20 14:07 98.4 F 99 H 29 H 191/139 H 94 PG Care Time/CCT Total # of Minutes Spent Total Time Spent with Patient: Total time spent is greater than 50% in coordination of care (as documented) at patient's floor/unit and/or counseling patient: Coding Level of Care Code 18597 Inpt Consult Level 4 Diagnoses NSTEMI (non-ST elevated myocardial infarction) I21.4
--- NOTE | 2020-08-22 18:48 | Emergency Department Note ---
History of Present Illness General Chief complaint: Cardiac Assessment Time Seen by Provider: 08/22/20 13:58 Source: patient, EMS and RN notes reviewed Mode of arrival: EMS Limitations: no limitations History of Present Illness Provider complaint: substernal CP, h/o CHF, CAD w stent Maximum Pain Intensity: 2 This pt is a 75 yo male with h/o CHF and CAD with stent who follows with Dr Canchola. He presents to the ED with c/o substernal to L sided CP with very little radiation of the pain. He states it began last evening after eating "a meatball marinara" so he attributed the pain to heartburn. He was unable to get rid of the discomfort for most of the evening and again noticed discomfort this am. 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 Pt states he is feeling much better now. He received ASA in the ambulance, but no NTG. He is hoping "this is not a waste of time." He denies recent fevers, cough, vomiting, abd pain, diarrhea or known COVID exposure. Home Medications Medication Instructions Recorded Confirmed Type allopurinol 300 mg tablet 300 mg PO DAILY tab 05/11/19 08/22/20 History lisinopril 20 mg tablet 40 mg PO QAM tab 05/11/19 08/22/20 History metformin 500 mg tablet 500 mg PO BIDM tab 05/11/19 08/22/20 History xkgcqtos-ick-onock acid 300 1 tab PO DAILY 05/11/19 08/22/20 History mcg-lycopene 600 mcg-lutein 300 mcg tablet vitamins A,C,W-lmfx-kkhljd 14,320 1 cap PO BID 05/11/19 08/22/20 History unit-226 mg-200 unit capsule omega 5-rsq-ngt-fish oil 1,000 mg 1 cap PO DAILY 05/20/19 08/22/20 History (120 mg-180 mg) capsule isosorbide mononitrate 60 mg 60 mg PO DAILY #90 tab 10/08/19 08/22/20 Rx tablet,extended release 24 hr clotrimazole 1 % topical cream 1 appln TOP BID PRN 03/17/20 08/22/20 History triamcinolone acetonide 55 mcg 1 sprays INTNAS DAILY 03/17/20 08/22/20 History nasal spray aerosol nitroglycerin 0.4 mg sublingual 0.4 mg SL Q5M PRN #25 tab 04/05/20 08/22/20 Rx tablet Blue Emu Cream 1 applic TOPICAL TID PRN 06/21/20 08/22/20 History naproxen sodium 220 mg tablet 220 mg PO Q12H PRN 06/21/20 08/22/20 History aspirin [Aspir-Low] 81 mg PO DAILY 08/22/20 08/22/20 History colestipol 2 g PO QPM 08/22/20 08/22/20 History furosemide [Lasix] 40 - 80 mg PO QAM 08/22/20 08/22/20 History metoprolol succinate 100 mg PO DAILY 08/22/20 08/22/20 History Allergies Allergy/AdvReac Type Severity Reaction Status Date / Time spironolactone AdvReac Severe Increased Verified 08/22/20 16:44 K, decreased HR Uvsxsfc-Ean-Uqy Reductase AdvReac Intermediate MYALGIAS Verified 08/22/20 16:44 Inhibitor Past Med/Surg History Medical History Acute diastolic CHF (congestive heart failure) Ankle pain Arthritis of Back and Knees Bronchitis Chest pain, rule out acute myocardial infarction Coronary artery disease Fall Gout of ankle Hyperlipidemia Hypertension Left foot pain Leg edema, right Low back pain Lyme disease Past heart attack Pulmonary embolism Tinea corporis Type 2 diabetes mellitus Surgical History History of prostate biopsy S/P coronary artery stent placement Family History Family/Other Prostate cancer Father Heart disease Mother Bone cancer Sister Colon cancer Social History Smoking Status: Never smoker Second Hand Exposure: No; Do You Dip or Chew Tobacco: No; Tobacco Cessation Education Requested by Patient: No Hx Alcohol Use: Yes Alcohol type: wine Hx Substance Use: No Preferred Language: Maltese Communication Ability: Effective 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 and A total of 10 systems reviewed and were otherwise negative Physical Exam Vital Signs Vital Signs - 24 hr 08/22/20 14:07 08/22/20 14:15 08/22/20 14:20 Temperature 36.9 C Temperature Source Oral Pulse Rate 99 H 97 H 104 H Pulse Rate from SpO2 Sensor 99 H 98 H 104 H Respiratory Rate 29 H 15 19 Blood Pressure 191/139 H Blood Pressure Mean 159 Pulse Oximetry 94 94 91 Oxygen Delivery Method Room Air Sepsis Recent Fever Within 48 Hours No Sepsis New/Unexplained Change in Mental Status N/A Sepsis Action Taken by Nursing No Action Required 08/22/20 14:28 08/22/20 14:30 08/22/20 14:35 Temperature Temperature Source Pulse Rate 95 H 100 H 91 H Pulse Rate from SpO2 Sensor 95 H 97 H 91 H Respiratory Rate 14 18 15 Blood Pressure 164/106 H 163/109 H 149/94 H Blood Pressure Mean 119 117 108 Pulse Oximetry 93 92 91 Oxygen Delivery Method Sepsis Recent Fever Within 48 Hours Sepsis New/Unexplained Change in Mental Status Sepsis Action Taken by Nursing 08/22/20 14:40 08/22/20 14:45 08/22/20 14:50 Temperature Temperature Source Pulse Rate 95 H Pulse Rate from SpO2 Sensor 98 H 92 H 94 H Respiratory Rate 19 11 L 20 Blood Pressure 162/107 H 161/102 H 144/101 H Blood Pressure Mean 126 116 113 Pulse Oximetry 91 92 93 Oxygen Delivery Method Sepsis Recent Fever Within 48 Hours Sepsis New/Unexplained Change in Mental Status Sepsis Action Taken by Nursing 08/22/20 15:00 08/22/20 15:01 08/22/20 15:30 Temperature Temperature Source Pulse Rate 95 H 93 H 89 Pulse Rate from SpO2 Sensor 95 H 93 H 89 Respiratory Rate 17 15 24 Blood Pressure 268/117 H 158/97 H Blood Pressure Mean 178 105 Pulse Oximetry 94 93 94 Oxygen Delivery Method Room Air Sepsis Recent Fever Within 48 Hours Sepsis New/Unexplained Change in Mental Status Sepsis Action Taken by Nursing 08/22/20 16:00 08/22/20 16:01 08/22/20 17:00 Temperature Temperature Source Pulse Rate 94 H 90 Pulse Rate from SpO2 Sensor 94 H 91 H Respiratory Rate 22 19 Blood Pressure 154/100 H 155/100 H Blood Pressure Mean 119 119 Pulse Oximetry 93 94 92 Oxygen Delivery Method Room Air Sepsis Recent Fever Within 48 Hours Sepsis New/Unexplained Change in Mental Status Sepsis Action Taken by Nursing 08/22/20 17:30 08/22/20 18:00 Temperature Temperature Source Pulse Rate Pulse Rate from SpO2 Sensor Respiratory Rate 19 20 Blood Pressure 144/95 H 160/103 H Blood Pressure Mean 107 119 Pulse Oximetry Oxygen Delivery Method Sepsis Recent Fever Within 48 Hours Sepsis New/Unexplained Change in Mental Status Sepsis Action Taken by Nursing Vital signs reviewed. General: Well-appearing 75 yo male, in no significant distress. HEENT: No scleral icterus, PERRLA, neck supple. Atraumatic. Cardiovascular: Regular rate and rhythm, no extra sounds. Pulmonary: Clear to auscultation bilaterally, normal work of breathing. Abdomen: Soft, obese, nontender, nondistended, positive bowel sounds. Musculoskeletal: Atraumatic, no peripheral edema. Neurologic: Patient awake alert and oriented x 3 Skin: Warm, dry, no rash Course Administered Medications Allopurinol (Allopurinol 300 Mg Tab) 300 mg PO DAILY [facility] Stop: 09/22/20 08:59 Last Admin: 08/23/20 09:18 Dose: 300 mg Documented by: [id number] Amlodipine Besylate (Amlodipine Besylate 5 Mg Tab) 5 mg PO QAM [facility] Stop: 09/22/20 08:59 Last Admin: 08/23/20 09:19 Dose: 5 mg Documented by: [id number] Colestipol HCl (Colestipol Hcl 1 Gm Tab) 2 gm PO DAILY@1999 [facility] Stop: 09/21/20 20:14 Last Admin: 08/22/20 21:57 Dose: 2 gm Documented by: [id number] Fish Oil ([place]-3 (Purified Fish Oil) 1 Gm Cap) 1 gm PO DAILY [facility] Stop: 09/22/20 08:59 Last Admin: 08/23/20 09:18 Dose: 1 gm Documented by: [id number] Heparin Sodium/Dextrose (Heparin Sodium/Dextrose) 25,000 units in 500 mls @ 28 mls/hr IV .[id number] [facility]; Protocol Stop: 09/21/20 15:29 Last Titration: 08/23/20 07:03 Dose: 1,400 units/hr, 28 mls/hr Documented by: [id number] Cosigned by: [id number] Titration: 08/23/20 06:16 Dose: 1,400 units/hr, 28 mls/hr Documented by: [id number] Cosigned by: [id number] Titration: 08/22/20 22:33 Dose: 1,200 units/hr, 24 mls/hr Documented by: [id number] Cosigned by: [id number] Titration: 08/22/20 20:31 Dose: 1,000 units/hr, 20 mls/hr Documented by: [id number] Cosigned by: [id number] Admin: 08/22/20 15:55 Dose: 1,000 units/hr, 20 mls/hr Documented by: [id number] Cosigned by: [id number] Potassium Chloride (K Curtis / Wtr) 10 meq in 100 mls @ 100 mls/hr IV Q1H [facility] Stop: 08/23/20 10:14 Last Admin: 08/23/20 09:26 Dose: 100 mls/hr Documented by: [id number] Infusion: 08/23/20 09:25 Dose: 100 mls/hr Documented by: [id number] Admin: 08/23/20 08:25 Dose: 100 mls/hr Documented by: [id number] Insulin Aspart (Insulin Aspart 100 Units/Ml 3 Ml Pen) 0 units SC ACHS [facility] Stop: 09/21/20 20:59 Last Admin: 08/23/20 06:14 Dose: 1 units Documented by: [id number] Cosigned by: [id number] Admin: 08/22/20 22:01 Dose: 2 units Documented by: [id number] Cosigned by: [id number] Isosorbide Mononitrate (Isosorbide [place] Extended Rel 60 Mg Tabcr) 60 mg PO DAILY [facility] Stop: 09/22/20 08:59 Last Admin: 08/23/20 09:19 Dose: 60 mg Documented by: [id number] Lisinopril (Lisinopril 20 Mg Tab) 20 mg PO BID [facility] Stop: 09/21/20 21:44 Last Admin: 08/23/20 09:19 Dose: 20 mg Documented by: [id number] Admin: 08/22/20 22:35 Dose: 20 mg Documented by: [id number] Metoprolol Succinate (Metoprolol Succ 50mg Ext Rel Tab) 100 mg PO DAILY [facility] Stop: 09/22/20 08:59 Last Admin: 08/23/20 09:19 Dose: 100 mg Documented by: [id number] Multivitamins (Multivitamin Tab) 1 tab PO DAILY [facility] Stop: 09/22/20 08:59 Last Admin: 08/23/20 09:19 Dose: 1 tab Documented by: [id number] Multivitamins/Minerals (Cerovite Adv Formula Tab) 1 tab PO DAILY [facility]; Protocol Stop: 09/22/20 08:59 Last Admin: 08/23/20 09:19 Dose: 1 tab Documented by: [id number] Nitroglycerin (Nitroglycerin 2% Ointment 30gm Tube) 2 inch EXT Q6H [facility] Stop: 09/21/20 21:59 Last Admin: 08/23/20 09:20 Dose: 2 inch Documented by: [id number] Admin: 08/23/20 03:42 Dose: 2 inch Documented by: [id number] Admin: 08/22/20 21:57 Dose: 2 inch Documented by: [id number] Discontinued Medications Amlodipine Besylate (Amlodipine Besylate 5 Mg Tab) 5 mg PO NOW ONE Stop: 08/22/20 18:51 Last Admin: 08/22/20 18:52 Dose: 5 mg Documented by: [id number] Heparin Sodium (Porcine) (Heparin Sod (Porcine) 1000 Unit/Ml 10 Ml Vial) Confirm Administered Dose 10,000 units .ROUTE .STK-MED ONE Stop: 08/22/20 15:45 Last Admin: 08/22/20 15:57 Dose: 4,000 units Documented by: [id number] Cosigned by: [id number] Heparin Sodium/Dextrose (Heparin Iv Low Dose With Bolus) 1 ea IV NOW STA; Protocol Stop: 08/22/20 15:26 Last Admin: 08/22/20 15:57 Dose: Not Given Documented by: [id number] Heparin Sodium (Porcine) 4,000 (units/ Syringe) 4 mls @ 10 mls/min IV ONE ONE Stop: 08/22/20 22:33 Last Admin: 08/22/20 22:54 Dose: 10 mls/min Documented by: [id number] Cosigned by: [id number] Heparin Sodium (Porcine) 4,000 (units/ Syringe) 4 mls @ 10 mls/min IV ONE ONE Stop: 08/23/20 06:18 Last Admin: 08/23/20 06:38 Dose: 10 mls/min Documented by: [id number] Cosigned by: [id number] Insulin Aspart (Insulin Aspart 100 Units/Ml 3 Ml Pen) 0 units SC TODAY@0000,0400 [facility] Stop: 08/23/20 04:01 Last Admin: 08/23/20 03:42 Dose: 2 units Documented by: [id number] Cosigned by: [id number] Admin: 08/23/20 00:01 Dose: 1 units Documented by: [id number] Cosigned by: [id number] Nitroglycerin (Nitroglycerin Sl 0.4 Mg/Tab Tab) 0.4 mg SL NOW STA Stop: 08/22/20 14:09 Last Admin: 08/22/20 14:28 Dose: 0.4 mg Documented by: [id number] Nitroglycerin (Nitroglycerin 2% Ointment 30gm Tube) 1 inch EXT NOW STA Stop: 08/22/20 15:28 Last Admin: 08/22/20 15:56 Dose: 1 inch Documented by: [id number] Critical Care Time Critical Care Time: Yes (40) The high probability of a clinically significant, sudden or life threatening deterioration required my full and direct attention, intervention and personal management. The aggregate critical care time was 40 minutes. This time is in addition to time spent performing reported procedures but includes the following: [x] Data Review and interpretation [x] Patient assessment and monitoring of vital signs [x] Documentation [x] Medication orders and management Medical Decision Making Differential Diagnosis Cardiac ischemia, aortic dissection, pulmonary embolism, pneumothorax, pneumonia, pericarditis, myocarditis, esophageal rupture, GERD, cholecystitis, pancreatitis, musculoskeletal, as well as other pathologies. Medical Records Attestation: I reviewed the patient's medical records. Home Medications Current Medication List: was personally reviewed by me Laboratory Data Attestation: I reviewed the patient's lab results. Result diagrams: 08/23/20 05:41 08/23/20 05:41 Lab Results 08/22/20 08/22/20 08/22/20 Range/Units 14:11 14:11 14:11 WBC 12.03 H (4.8-10.8) K/uL RBC 4.76 (4.7-6.1) M/uL Hgb 15.1 (14.0-18.0) g/dL Hct 44.4 (42-52) % MCV 93.3 (80-100) fL MCH 31.7 (25-34) pg MCHC 34.0 (32-36) g/dL RDW Std Deviation 48.7 H (36.4-46.3) fL RDW Coeff of Jeff 14.4 (11.5-14.5) % Plt Count 223 (130-400) K/uL MPV 10.2 (7.4-10.4) fL Immature Gran % (Auto) 0.2 % Neut % (Auto) 87.1 % Lymph % (Auto) 8.0 % [place] % (Auto) 4.4 % Eos % (Auto) 0.2 % Baso % (Auto) 0.1 % Neut # (Auto) 10.48 H (1.4-6.5) K/uL Lymph # (Auto) 0.96 L (1.2-3.4) K/uL [place] # (Auto) 0.53 (0.11-0.59) K/uL Eos # (Auto) 0.02 (0-0.5) K/uL Baso # (Auto) 0.01 (0-0.2) K/uL Immature Gran # (Auto) 0.03 H (0.00-0.02) K/uL PT 10.7 (9.0-12.0) Seconds INR 1.0 (0.9-1.1) APTT 27.6 (21.0-31.0) Seconds PTT Ratio 1.0 Sodium 139 (136-145) mmol/L Potassium 4.0 (3.5-5.1) mmol/L Chloride 106 (98-107) mmol/L Carbon Dioxide 25 (21-32) mmol/L Anion Gap 8.0 (3-11) BUN 17 (7-18) mg/dl Creatinine 1.31 (0.6-1.4) mg/dl Est Cr Clr Drug Dosing 64.1 ml/min Est GFR ( Amer) 60.9 Est GFR (Non-Af Amer) 52.5 BUN/Creatinine Ratio 12.9 (10-20) Glucose 153 H (70-99) mg/dl Calcium 9.3 (8.5-10.1) mg/dl Total Bilirubin 0.4 (0.2-1) mg/dl AST 52 H (15-37) U/L ALT 21 (12-78) U/L Alkaline Phosphatase 93 (45-117) U/L Troponin I 3.830 H* (0-0.045) ng/ml Total Protein 7.6 (6.4-8.2) gm/dl Albumin 3.9 (3.4-5.0) gm/dl Globulin 3.7 (2.5-4.0) gm/dl Albumin/Globulin Ratio 1.1 (0.9-2) Lipase 178 (73-393) U/L SARS-CoV-2 Ag (Rapid) (Negative) 08/22/20 Range/Units 16:31 WBC (4.8-10.8) K/uL RBC (4.7-6.1) M/uL Hgb (14.0-18.0) g/dL Hct (42-52) % MCV (80-100) fL MCH (25-34) pg MCHC (32-36) g/dL RDW Std Deviation (36.4-46.3) fL RDW Coeff of Jeff (11.5-14.5) % Plt Count (130-400) K/uL MPV (7.4-10.4) fL Immature Gran % (Auto) % Neut % (Auto) % Lymph % (Auto) % [place] % (Auto) % Eos % (Auto) % Baso % (Auto) % Neut # (Auto) (1.4-6.5) K/uL Lymph # (Auto) (1.2-3.4) K/uL [place] # (Auto) (0.11-0.59) K/uL Eos # (Auto) (0-0.5) K/uL Baso # (Auto) (0-0.2) K/uL Immature Gran # (Auto) (0.00-0.02) K/uL PT (9.0-12.0) Seconds INR (0.9-1.1) APTT (21.0-31.0) Seconds PTT Ratio Sodium (136-145) mmol/L Potassium (3.5-5.1) mmol/L Chloride (98-107) mmol/L Carbon Dioxide (21-32) mmol/L Anion Gap (3-11) BUN (7-18) mg/dl Creatinine (0.6-1.4) mg/dl Est Cr Clr Drug Dosing ml/min Est GFR ( Amer) Est GFR (Non-Af Amer) BUN/Creatinine Ratio (10-20) Glucose (70-99) mg/dl Calcium (8.5-10.1) mg/dl Total Bilirubin (0.2-1) mg/dl AST (15-37) U/L ALT (12-78) U/L Alkaline Phosphatase (45-117) U/L Troponin I (0-0.045) ng/ml Total Protein (6.4-8.2) gm/dl Albumin (3.4-5.0) gm/dl Globulin (2.5-4.0) gm/dl Albumin/Globulin Ratio (0.9-2) Lipase (73-393) U/L SARS-CoV-2 Ag (Rapid) Negative (Negative) Imaging Data Radiologist's Impression: SINGLE VIEW CHEST CLINICAL HISTORY: Atypical chest pain. FINDINGS: 2 AP, portable, upright chest radiographs are compared to study dated 03/29/2020 and correlated with chest CT dated 03/07/2020. The heart is enlarged noting atherosclerotic calcification of the thoracic aorta. There is prominence of the pulmonary vasculature. Chronic interstitial thickening is similar to previous. Mild scarring/atelectasis is seen at the lung bases. No airspace consolidation or large pleural effusion is identified. No pneumothorax is seen. The skeletal structures are osteopenic. The bony thorax is grossly intact. IMPRESSION: 1. Cardiomegaly with prominence of the pulmonary vasculature. Correlate clinically for evidence of mild congestive failure. 2. No airspace consolidation or large pleural effusion is identified. ACT 112: Negative or not required by law. Electronically signed by: Nikolai Bacon M.D. 08/22/2020 3:11 PM Dictated: 08/22/20 1509Transcribed: 08/22/20 1509 ECG Data Attestation: I personally reviewed and interpreted this ECG as follows: Indication: + chest pain and + other Rate (beats per minute): 101 Rhythm: + sinus tachycardia ECG Intervals/blocks: + First degree AV block and + Prolonged QT (487) ECG [place]: + Left axis deviation ECG ST segments: + Normal ST segments ECG Findings: + Q waves (inferior, anterior) and + Other (poor quality baseline) Additional Comments: EKG#2 @ 1552 SR at 88 bpm w first degree AV block. QTc has improved from previous. Q waves inferior and anterior persist. ST segments remain at baseline. Low voltage with LAD. Blood Pressure Blood Pressure Findings: Elevated blood pressure Blood Pressure Disposition: further management by hospitalist MDM Narrative This pt was evaluated and appeared to be in no distress. IV access was obtained and lab work was drawn. An order for cardiac monitoring was placed and the pt was noted to be in a SR with first degree AV block at 99 bpm. BP was elevated. NTG SL was administered with minimal improvement. 1" NTG paste was applied. CXR reveals cardiomegaly and mild congestion. Lab work is concerning for elevated trop at 3.83. IV heparin was initiated. Pt had minimal residual pain. His BP was improved but remained elevated. Dr. Peterson of interventional cardiology was consulted as well as the hospitalist service for further management. Pt is aware of the plan and agrees. Impression & Plan Acute non-ST elevation myocardial infarction (NSTEMI), CAD S/P percutaneous coronary angioplasty Discharge Plan Visit Data Chief Complaint: Cardiac Assessment ED Provider: Parris Mccallum Discharge Problem: Acute non-ST elevation myocardial infarction (NSTEMI), CAD S/P percutaneous coronary angioplasty Patient Disposition: Admitted As Inpatient Discharge Instructions Interventions: ED Discharge Assessment Last Done: 08/22/20 19:17
[2020-08-22] MEDS ORDERED: amLODIPine BESYLATE 5 MG TAB PO ONE (18:50)
[2020-08-22] MEDS ORDERED: ONDANSETRON INJ 2 MG/ML 2 ML VIAL IV PRN (19:54)
[2020-08-22] MEDS ORDERED: NITROGLYCERIN SL 0.4 MG/TAB TAB SL PRN (19:54)
[2020-08-22] MEDS ORDERED: BLUE EMU topical PRN (19:54)
[2020-08-22] MEDS ORDERED: CLOTRIMAZOLE 1% CR 15 GM TUBE TOP PRN (19:54)
[2020-08-22] MEDS ORDERED: ACETAMINOPHEN 325 MG TAB PO PRN (19:54)
[2020-08-22] MEDS ORDERED: PHARMACY GLYCEMIC MGMT CONSULT PRN (20:20)
[2020-08-22] MEDS ORDERED: FUROSEMIDE 40 MG TAB PO PRN (20:30)
[2020-08-22] MEDS ORDERED: GLUCAGON FOR INJ 1 MG VIAL IM PRN (21:00)
[2020-08-22] MEDS ORDERED: CARBOHYDRATES FOR HYPOGLYCEMIA PO PRN (21:00)
[2020-08-22] MEDS ORDERED: GLUCOSE 40% GEL 15 GM TUBE PO PRN (21:00)
[2020-08-22] MEDS ORDERED: GLUCOSE 10 TABS/TUBE PO PRN (21:00)
[2020-08-22] MEDS ORDERED: DEXTROSE 50% 50 ML SYRINGE IV PRN (21:00)
[2020-08-22] MEDS: NITROGLYCERIN 2% OINTMENT 30GM TUBE EXT SCH (21:57)
[2020-08-22] MEDS: COLESTIPOL HCL 1 GM TAB PO SCH (21:57)
[2020-08-22] MEDS: INSULIN ASPART 100 UNITS/ML 3 ML PEN SC SCH (22:01)
[2020-08-22 22:31] LABS: Partial Thromboplastin Ratio 1.1
[2020-08-22] MEDS ORDERED: HEPARIN IV BOLUS 4,000 UNITS in SYRINGE 0 ML IV ONE (22:32)
[2020-08-22] MEDS: lisinopril 20 MG TAB PO SCH (22:35)
[2020-08-23] MEDS: INSULIN ASPART 100 UNITS/ML 3 ML PEN SC SCH ×6 (00:01→20:55)
[2020-08-23] MEDS: NITROGLYCERIN 2% OINTMENT 30GM TUBE EXT SCH ×4 (03:42→22:51)
[2020-08-23 06:00] LABS: Basophils # (auto) 0.01 K/uL (0-0.2); Basophils % (auto) 0.1 %; Eosinophils # (auto) 0.04 K/uL (0-0.5); Eosinophils % (auto) 0.3 %; Hematocrit (blood only) 44.1 % (42-52); Hemoglobin 14.7 g/dL (14.0-18.0); Immature Granulocytes # (auto) 0.02 K/uL (0.00-0.02); Immature Granulocytes % (auto) 0.2 %; Lymphocytes # (auto) 0.89 K/uL (1.2-3.4); Lymphocytes % (auto) 6.9 %; Mean Corpuscular Hemoglobin 31.1 pg (25-34); Mean Corpuscular Volume 93.4 fL (80-100); Mean Platelet Volume 10.2 fL (7.4-10.4); Monocytes # (auto) 0.69 K/uL (0.11-0.59); Monocytes % (auto) 5.3 %; Neutrophils # (auto) 11.29 K/uL (1.4-6.5); Neutrophils % (auto) 87.2 %; Platelet Count 209 K/uL (130-400); RDW Coefficient of Variation 14.5 % (11.5-14.5); Red Blood Count 4.72 M/uL (4.7-6.1); White Blood Count 12.94 K/uL (4.8-10.8)
[2020-08-23 06:09] LABS: Partial Thromboplastin Ratio 1.3; Partial Thromboplastin Time 37.4 Seconds (21.0-31.0)
[2020-08-23] MEDS ORDERED: HEPARIN IV BOLUS 4,000 UNITS in SYRINGE 0 ML IV ONE (06:17)
[2020-08-23 06:23] LABS: Calcium 9.1 mg/dl (8.5-10.1); Est GFR (African American) 51.7; Est GFR (Non-African American) 44.6; Magnesium 1.9 mg/dl (1.8-2.4); Potassium 3.6 mmol/L (3.5-5.1)
[2020-08-23 06:27] LABS: Mean Corpuscular Hgb Conc 33.3 g/dL (32-36)
[2020-08-23 06:49] LABS: Troponin I 18.2 ng/ml (0-0.045)
[2020-08-23 07:50] LABS: Estimated Average Glucose 140 mg/dl; Hemoglobin A1C 6.5 % (4.5-5.6)
[2020-08-23] MEDS: POTASSIUM CHLORIDE / WTR 10 MEQ/100 ML PLCT IV SCH ×2 (08:25→09:26)
[2020-08-23] MEDS ORDERED: lisinopril 40 MG TAB PO SCH (09:00)
[2020-08-23] MEDS: OMEGA-3 (PURIFIED FISH OIL) 1 GM CAP PO SCH (09:18)
[2020-08-23] MEDS: allopurinoL 300 MG TAB PO SCH (09:18)
[2020-08-23] MEDS: METOPROLOL SUCC 50MG EXT REL TAB PO SCH (09:19)
[2020-08-23] MEDS: CEROVITE ADV FORMULA TAB PO SCH (09:19)
[2020-08-23] MEDS: lisinopril 20 MG TAB PO SCH ×2 (09:19→20:42)
[2020-08-23] MEDS: ISOSORBIDE MONO EXTENDED REL 60 MG TABCR PO SCH (09:19)
[2020-08-23] MEDS: MULTIVITAMIN TAB PO SCH (09:19)
[2020-08-23] MEDS: amLODIPine BESYLATE 5 MG TAB PO SCH (09:19)
--- NOTE | 2020-08-23 10:09 | Hospitalist Progress Note ---
Date of Service August 23, 2020 Assessment & Plan (1) NSTEMI (non-ST elevated myocardial infarction): Serial changes of anterior ischemic changes on EKGs. Troponin not yet peaked therefore will continue to trend. Continue aspirin, no clopidogrel per cardiology recommendations due to concern for multivessel disease and possible need for bypass. Continue IV heparin drip Continue metoprolol XL 100mg PO daily - room to increase this but will defer to cardiology Continue nitro paste with his usual PO ISMN If patient stays here will consult gearcase assembler to consider setting up PSCK9 inhibitor as an outpatient is insurance covers Further management pending cardiac cath results. Appreciate ongoing cardiology management (2) CAD, multiple vessel: -- As outlined above. (3) Hypertension: -- Continue usual medications along with Amlodipine 5 mg and nitro paste 2 inch (4) Hyperlipidemia: -- Patient is statin intolerant, would recommend Repatha 140 mg subcutan eous injection twice monthly if insurance will cover it. -- Continue [place] 3 fish oil capsules. (5) Type 2 diabetes mellitus: HbA1C 6.5. -- Hold Metformin due to risk of renal toxicity. Can restart as outpatient on this -- BSG checks with SSI - pharmacy consulted for glycemic control (6) Diastolic CHF: -- Currently appears euvolemic. -- Monitor daily I&O's and body weights. (negative 307ml balance 08/22) -- Continue Lasix 40 mg daily with an extra 40 mg prn for weight gain, edema, or SOB. (7) Gout: Continue allopurinol 300mg PO daily (8) DVT prophylaxis: IV heparin drip Admission and Anticipated Discharge Date Admission Date: August 22, 2020 Subjective Patient reports pain was well controlled all night on nitro paste. Current severity /. Planning on cardiac catheterization later this morning. No shortness of breath or diaphoresis. BP much improved this morning with introduction of nitro paste and amlodipine. Review of Systems Review of Systems: All systems reviewed & are unremarkable except as noted in HPI & below Physical Exam Constitutional: well developed, well nourished and + morbidly obese; no acute distress Eyes: + anicteric sclerae; normal pupil size ENMT: external ear and nose normal, oropharynx normal Neck: trachea midline, no thyromegaly Respiratory: normal respiratory effort, lungs clear to auscultation Cardiovascular: Rate/Rhythm: regular rate and regular rhythm Heart Sounds: no murmur Vessels: no JVD Extremities: normal capillary refill; no calf tenderness and no pedal edema Results & Data Results & Data ([facility]) Vital Signs (Past 12 Hours) Vital Signs Temp Pulse Pulse Resp BP Pulse Ox 08/23/20 07:22 84 08/23/20 07:05 37.1 C 86 18 125/78 92 08/23/20 03:28 36.7 C 86 18 149/91 H 91 08/22/20 23:34 36.4 C L 82 18 141/87 H 90 ECG Indication: chest pain Rate (beats per minute): 77 Rhythm: normal sinus Findings: + other (T wave flattening laterally) and + 1st degree AV block Change: the following changes noted (serial changes of anterior infarct present) PG Care Time/CCT Total # of Minutes Spent Total Time Spent with Patient: Total time spent is greater than 50% in coordination of care (as documented) at patient's floor/unit and/or counseling patient: Coding Level of Care Code 68025 Subseq Hosp Care Lvl 2 Diagnoses NSTEMI (non-ST elevated myocardial infarction) I21.4 CAD, multiple vessel I25.10 Hypertension I10 Hyperlipidemia E78.5 Type 2 diabetes mellitus E11.9 Diastolic CHF I50.30 Gout M10.9 DVT prophylaxis Z29.9
--- NOTE | 2020-08-23 10:20 | XCELERA ---
[id number]
--- NOTE | 2020-08-23 10:24 | Cardiology Progress Note ---
Date of Service August 23, 2020 Assessment & Plan (1) NSTEMI (non-ST elevated myocardial infarction): 2. History of coronary artery disease post prior anterior OR 2006. Known residual ostial circumflex, distal RCA disease. 3. Ischemic cardiomyopathyLVEF today 2024% with worse anterior, lateral wall motion abnormality 4. Chronic diastolic heart failure 5. Type 2 diabetes 6. Hypertension 7. Dyslipidemiastatin intolerance 8. Acute on chronic renal insufficiency Reviewed patient's echocardiogram from earlier today. Now with severe LV dysfunction and worse anterior/lateral wall motion abnormality. Largely chest pain-free this morning. Troponin uptrending to 18 Hemodynamically and electrically stable overnight. Plan to proceed with cardiac catheterization later this morning. Admission and Anticipated Discharge Date Admission Date: August 22, 2020 Subjective Feeling well this morning. Minimal chest pressure overnight, states usually would not have thought anything of it. No shortness of breath. Telemetry reviewedno events Review of Systems Review of Systems: All systems reviewed & are unremarkable except as noted in HPI & below Physical Exam Physical Exam: General: Comfortable, no acute distress HEENT: Sclerae anicteric Lungs: Clear to auscultation anteriorly Cardiac: Regular rate and rhythm, 2/6 holosystolic murmur Abdomen: Soft, nontender Extremities: Warm, well perfused, no edema. 2+ radial pulses Neuro: Nonfocal Psych: Alert orient x3, normal affect and mood Results & Data ([facility]) Vital Signs (Past 12 Hours) Vital Signs Temp Pulse Pulse Resp BP Pulse Ox 08/23/20 07:22 84 08/23/20 07:05 98.8 F 86 18 125/78 92 08/23/20 03:28 98.1 F 86 18 149/91 H 91 08/22/20 23:34 97.5 F L 82 18 141/87 H 90 PG Care Time/CCT Total # of Minutes Spent Total Time Spent with Patient: Total time spent is greater than 50% in coordination of care (as documented) at patient's floor/unit and/or counseling patient: Coding Level of Care Code 52403 Subseq Hosp Care Lvl 3 Diagnoses NSTEMI (non-ST elevated myocardial infarction) I21.4
[2020-08-23] MEDS ORDERED: NITROGLYCERIN/D5W 100MCG/ML 20ML SYR ONE (11:10)
[2020-08-23] MEDS ORDERED: fentaNYL citrate 100 MCG/2 ML VIAL ONE ×2 (11:10→12:22)
[2020-08-23] MEDS ORDERED: MIDAZOLAM HCL 1 MG/ML 2ML VIAL ONE ×2 (11:10→11:42)
[2020-08-23] MEDS ORDERED: HEPARIN (PORCINE) 1000 UNIT/ML 10 ML (CATH LAB USE ONLY) ONE (11:10)
[2020-08-23] MEDS ORDERED: niCARdipine HCL INJ 2.5 MG/ML 10 ML AMP ONE (11:10)
[2020-08-23] MEDS ORDERED: CLOPIDOGREL BISULFATE 300 MG TAB ONE (12:43)
--- NOTE | 2020-08-23 13:19 | Post Anesthesia Assessment ---
Date of Service August 23, 2020 Post Sedation Assessment Vital Signs Temp Pulse Pulse Resp BP BP Pulse Ox 08/23/20 13:13 81 18 155/94 H 95 08/23/20 13:00 85 18 153/97 H 95 08/23/20 07:22 84 08/23/20 07:05 98.8 F 86 18 125/78 92 08/23/20 03:28 98.1 F 86 18 149/91 H 91 08/22/20 23:34 97.5 F L 82 18 141/87 H 90 08/22/20 21:55 84 138/78 08/22/20 19:53 97.3 F L 88 18 176/111 H 92 08/22/20 19:00 85 20 143/96 H 90 08/22/20 18:30 86 20 154/104 H 93 08/22/20 18:00 20 160/103 H 08/22/20 17:30 19 144/95 H 08/22/20 17:00 90 19 155/100 H 92 08/22/20 16:01 94 08/22/20 16:00 94 H 22 154/100 H 93 08/22/20 15:30 89 24 158/97 H 94 08/22/20 15:01 93 H 15 268/117 H 93 08/22/20 15:00 95 H 17 94 08/22/20 14:50 95 H 20 144/101 H 93 08/22/20 14:45 11 L 161/102 H 92 08/22/20 14:40 19 162/107 H 91 08/22/20 14:35 91 H 15 149/94 H 91 08/22/20 14:30 100 H 18 163/109 H 92 08/22/20 14:28 95 H 14 164/106 H 93 08/22/20 14:20 104 H 19 91 08/22/20 14:15 97 H 15 94 08/22/20 14:07 98.4 F 99 H 29 H 191/139 H 94 Recovery Score Activity: Moves 4 extremities Respiration: Deep Breath/Cough Circulation: +/-20% PreAnes Value Consciousness: Fully Awake Oxygen Saturation: O2 needed for >90% Discharge Sedation Level of Care: Fast Track Phase II Post Sedation Plan On clinical assessment, the patient appears to have tolerated the sedation without complications. Patient is recovering as anticipated. Patient will continue to be monitored by nursing and may be discharged when sedation discharge criteria are met per below protocol. Upon Completions of procedure up to 15 minutes continue every 5 minute vital signs and the P.A.R. score; then discharge to a Phase I or Fast Track to Phase II per the following guidelines: * Discharge Patient to appropriate Phase II area if PAR is 8 or greater or return to pre- procedure baseline. The post - procedure orders will be as directed. * If PAR score is less than 8 or not return to pre-procedure baseline then patient will follow Phase I monitoring till PAR is reached for Phase II. The Phase I may be done in procedure room or may call to secure a Phase I area. * If naloxone or flumazenil are used for reversal, hold in Phase I for continued monitoring from when last reversal dose was given for a minimum of 60 minutes or longer pending the nurse and/or physician discretion of patient condition before discharge to Phase II. Please call the Sedation Physician to re-evaluate and complete post-note for discharge to Phase II area. Do NOT discharge from procedure sedation or Phase 1 until post- sedation evaluation note is complete by procedure /sedation MD Sedation Discharge Instructions to be given to the patient at discharge to home.
--- NOTE | 2020-08-23 13:23 | Post Operative Brief Note ---
Cardiology Brief Post Op Date of Surgery August 23, 2020 Pre & Post Diagnosis CAD Procedure -- Line Installer Trolley Yassine Peterson MD Benefits Consultant Maciel Estimated Blood Loss 10 Findings See Below Severe multivessel CAD - 95% distal RCA into PDA. Chronic R-PAV occlusion. R-PLB fills via left to right collaterals. - Mid LAD stent 30% ISR (by IVUS). 70% late-mid LAD stenosis - 50-60% distal circumflex (50% by IVUS). PCI of distal RCA into PDA with 3.0x22 mm Carl; post-dilated with 3.5 NC PCI of late-mid LAD with 2.75 x 15 mm Carl; post-dilated with 3.0 NC Anesthesia Type RN Sedation Complications none Disposition Accompanied Patient To Recovery: No Disposition: PCU Overlapping Procedure I was present for: the critical portions of procedure. I was immediately available: during the entire case. Back up surgeon: was not required during procedure.
[2020-08-23] MEDS ORDERED: SODIUM CHLORIDE 0.9% 1000ML 1,000 ML IV SCH (13:30)
[2020-08-23] MEDS: ASPIRIN 81 MG ECTAB PO SCH (13:39)
[2020-08-23] MEDS: FUROSEMIDE 40 MG TAB PO SCH (13:40)
[2020-08-23] MEDS: TRIAMCINOLONE ACET NASAL SPRAY 10.8ML BTL SCH (13:41)
[2020-08-23] MEDS: HEPARIN SODIUM/DEXTROSE 25,000 UNITS/500 ML BAG IV SCH (13:45)
--- NOTE | 2020-08-23 14:07 | Pharmacy Report ---
Pharmacy Glycemic Short Note 2 - Date of Service August 23, 2020 - Glycemic Short BSG Results (Last 24 hours): 08/22/20 08/22/20 08/22/20 14:11 19:38 21:48 Glucose 153 H POC Glucose 146 H 185 H 08/22/20 08/23/20 08/23/20 23:57 03:27 05:41 Glucose 160 H POC Glucose 150 H 173 H 08/23/20 08/23/20 08/23/20 06:01 07:34 13:26 Glucose POC Glucose 149 H 159 H 149 H OUTPATIENT ANTIDIABETIC REGIMEN: * metformin 500 bid ASSESSMENT: * 75 year old with NSTEMI. Type 2 diabetic managed only on metformin at home * BSGs relatively well controlled since admission / continue novolog for now. Will consider adding basal if fasting elevated. A1c of 6.5% on admission indicating good glycemic control outpatient PLAN FOR INPATIENT GLYCEMIC CONTROL: * Hold outpatient oral diabetes medications * Basal insulin * Lantus - hold * Bolus insulin * NovoLog per scale ACHS or Q6hrs while NPO * Goal Range: Low 110 mg/dL - High 140 mg/dL * Correction Factor: 25 mg/dL/unit * Nutritional / Prandial insulin per carb ratio of 1 unit per 8 grams CHO consumed PLAN FOR DISCHARGE: * A1c of 6.5 indicates good glycemic control. Would consider continuation of home metformin as long as no contraindications exist
[2020-08-23 14:53] LABS: Partial Thromboplastin Ratio 2.3
[2020-08-23 15:07] LABS: Partial Thromboplastin Time 64.2 Seconds (21.0-31.0)
--- NOTE | 2020-08-23 15:56 | Electrocardiogram Report ---
Test Reason : Blood Pressure : / mmHG Vent. Rate : 101 BPM Atrial Rate : 101 BPM P-R Int : 240 ms QRS Dur : 108 ms QT Int : 376 ms P-R-T Axes : 000 -64 078 degrees QTc Int : 487 ms Poor data quality, interpretation may be adversely affected Sinus tachycardia with 1st degree A-V block Left axis deviation Low voltage QRS Inferior infarct (cited on or before 04-AUG-2007) Cannot rule out Anterior infarct (cited on or before 04-AUG-2007) Abnormal ECG When compared with ECG of 01-APR-2020 07:48, No significant change Confirmed by Chino Bai ([id number]) on 08/23/2020 3:56:07 PM Referred By: ER Confirmed By:Chino Bai
--- NOTE | 2020-08-23 15:57 | Electrocardiogram Report ---
Test Reason : Blood Pressure : / mmHG Vent. Rate : 088 BPM Atrial Rate : 088 BPM P-R Int : 232 ms QRS Dur : 114 ms QT Int : 380 ms P-R-T Axes : -25 -62 085 degrees QTc Int : 459 ms Sinus rhythm with 1st degree A-V block Left axis deviation Low voltage QRS Inferior infarct (cited on or before 04-AUG-2007) Anterolateral infarct (cited on or before 04-AUG-2007) Abnormal ECG When compared with ECG of 22-AUG-2020 14:04, (unconfirmed) No significant change Confirmed by Chino Bai ([id number]) on 08/23/2020 3:57:21 PM Referred By: REFERRED SELF Confirmed By:Chino Bai
--- NOTE | 2020-08-23 16:19 | Electrocardiogram Report ---
Test Reason : Blood Pressure : / mmHG Vent. Rate : 077 BPM Atrial Rate : 077 BPM P-R Int : 272 ms QRS Dur : 108 ms QT Int : 432 ms P-R-T Axes : 020 -49 127 degrees QTc Int : 488 ms Sinus rhythm with 1st degree A-V block Left axis deviation Low voltage QRS Inferior infarct (cited on or before 04-AUG-2007) Cannot rule out Anterior infarct (cited on or before 04-AUG-2007) T wave abnormality, consider lateral ischemia Abnormal ECG When compared with ECG of 22-AUG-2020 15:52, (unconfirmed) Serial changes of Anterior infarct Present Confirmed by Chino Bai ([id number]) on 08/23/2020 4:19:04 PM Referred By: REFERRED SELF Confirmed By:Chino Bai
--- NOTE | 2020-08-23 18:25 | Cardiac Catheterization ---
ACC Data: [place] Cardiac Status Clinical evaluation leading to the procedure CAD Presenation: Non STEMI Anginal Classification: CCS IV Heart Failure: No Cardiogenic Shock within 24 Hours: No Cardiac Arrest within 24 Hours: No Imaging Studies Past 6 Months: Yes Stress Studies Past 6 Months: No Diagnostic Physicians Name: Yassine Peterson MD Status: Elective Closure Device Percutaneous Entry Location: Radial Closure Device: Radial Band Recommendations: PCI without planned CABG PCI Indication: PCI for high risk Non-ALEKSANDAR Lesion Segment Name: Distal RCA Culprit Artery: Yes Stenosis Prior to Rx (%): 95 Chronic Total Occlusion: No IVUS: Yes FFR: No Pre-Procedure KURT Flow: 3 Previously Treated Lesion: No Lesion Complexity: Non-High/Non-C Lesion Length (mm): 15 Thrombus Present: Yes Bifurcation Lesion: Yes Guidewire Across Lesion: Stenosis Post-Procedure (%): 0 Post-Procedure KURT Flow: 3 Devices(s) Deployed: Yes Yes Lesion #2 Segment Name: Latemid LAD Culprit Artery: No Stenosis Prior to Rx (%): 70 Chronic Total Occlusion: No IVUS: Yes Pre-Procedure KURT Flow: 3 Previously Treated Lesion: No Lesion Complexity: Non-High/Non-C Lesion Length (mm): 10 Thrombus Present: No Bifurcation Lesion: No Guidewire Across Lesion: Yes Stenosis Post-Procedure (%): 0 Post-Procedure KURT Flow: 3 Devices(s) Deployed: Yes Intraprocedure Events Significant Disection: No Perforation: No Cardiac Cath Procedure Full Procedure Date August 23, 2020 Pre-Procedure Diagnosis Pre-Procedure Diagnosis: Non STEMI AUC Score AUC Score: 8 Post-Procedure Diagnosis Post-Procedure Diagnosis: Severe CAD, Successful PCI and Normal Intracardiac Pressures Procedure(s) Performed Procedure(s) Performed: Coronary Angiography, Left Heart Cath, Drug Eluting Stent and IVUS Coat Finisher Yassine Peterson MD University Extension Specialist(s) Maciel Estimated Blood Loss Estimated Blood Loss: None Medication(s) Medication(s): Clopidogrel, Fentanyl, Heparin, Lidocaine 1%, Nicardipine, Nitroglycerin and Versed Summary of Findings Indication: NSTEMI, new LV dysfunction Access: 6 Fr right radial artery Catheters: [place], EBU 3.5 guide, JR4 guide Findings: LM -20 to 30% ostial stenosis LAD -medium caliber vessel, proximal luminal regularities, 40% mid in-stent restenosis (mild disease by IVUS), 70% latemid focal stenosis (71% by IVUS, MLA 1.8 mm)., distal vessel with luminal irregularities as wraps around apex. Large D1 takes off just before prior LAD stent and has a 30 to 40% ostial stenosis by IVUS, mid D1 with focal, calcified 50 to 60% stenosis (IVUS MLA 3.0 mm). Circumflex -large caliber vessel, 40% ostial stenosis by IVUS, proximal and mid segment luminal regularities, 60% calcified focal stenosis in distal segment just after takeoff of large OM 3 (50% by IVUS, MLA 3.7 mm). Distal vessel gives off collaterals to right posterior lateral branch. RCA -dominant, medium caliber, 40 to 50% proximal stenosis, mid segment ectatic with mild disease, 95% distal RCA/ostial PDA stenosis. Subtotal occlusion of right posterior AV branch. Right PLB fills via [id number] collaterals. LVEDP -14 Venus IVUS assessment of LAD, D1, circumflex and RCA. Found to have moderate mid LAD in-stent restenosis and severe chronic latemid LAD disease. Moderate nonobstructive, chronic D1 disease and distal circumflex disease. Decision to proceed with PCI of latemid LAD and acute culprit RCA. -- PCI -- Antithrombotic therapy: Heparin, clopidogrel Procedure: Left main cannulated with EBU 3.5 guide BMW wire passed across lesion into distal LAD Latemid LAD lesion predilated with 2.5 compliant balloon Dilated lesion stented with 2.75 x 15 mm [place] drug-eluting stent Stent post-dilated with 3.0 noncompliant balloon IC vasodilators administered for spasm Post procedure KURT 3 flow, stent well expanded with minimal residual stenosis and no apparent cardiac complications. RCA cannulated with JR4 guide BMW wire passed across lesion into distal PDA Ostial PDA/distal RCA dilated with 2.5 balloon 3.0 x 22 mm Carl drug-eluting stent placed from distal RCA into proximal PDA Stent postdilated with 3.5 NC balloon IC vasodilators administered for spasm Post procedure KURT 3 flow, stent well expanded with minimal residual stenosis and no apparent cardiac complications. Arterial Closure: TR band Summary: 1. Multivessel coronary artery disease -95% acute distal RCA/ostial PDA. Chronic subtotal occlusion of right posterior AV branch. Right PLB fills via [id number] collaterals. 20 to 30% ostial left main 40% mid LAD in-stent restenosis, 70% latemid LAD stenosis 40% ostial circumflex, 50 to 60% distal circumflex after OM 3 2. Normal intracardiac filling pressure 3. Successful PCI of distal RCA to proximal PDA with single drug-eluting stent (3.0 x 22 mm Carl; postdilated with 3.5 NC). 4. Successful PCI of latemid LAD with single drug-eluting stent (2.75 x 15 mm Carl; postdilated with 3.0 NC) Recommendations: To PCU for continued monitoring Loaded with clopidogrel 600 mg in bolt labeler Continue dual-antiplatelet therapy for at least 1 year. Consider extended DAPT in the setting of multivessel stenting. Continue statin, and ASCVD risk factor modification Optimize GDMT for ischemic cardiomyopathy Consult cardiac Rehab If severe LV dysfunction persists, or refractory symptoms consider FFR and possible PCI to distal circumflex which is a large vessel and provides collaterals to right PLB. Hemodynamics Rest Ao:: 123/78/99 Final Ao: 118/75/93 LV: 121/14 Recommendations Recommendations: PCI without planned CABG Specimens Specimens: None Radiation Exposure (mGy) 3996 Contrast (mls) 145 Fluids (cc crystalloids) Fluids (cc crystalloids): 54 Drains Drains: None Anesthesia Moderate Procedural Complication(s) None Disposition PCU I attest to the content of the Intraoperative Record and any orders documented therein. Any exceptions are noted below. [facility] Card Cath Procedure Codes Cardiac Catheterization Procedure 1: Cardiovascular Cath Procedures: 27268 Coronaries and LHC (+/-LV) Therapeutic Services & Ancillary Proc Procedure 1: Cardiovascular Tx and Anc Procedures: 71937 IV Ultrasound (Coronary or Graft) Procedure 2: Cardiovascular Tx and Anc Procedures: 83132 IV Ultrasound Ea addl vessel Procedure 3: Cardiovascular Tx and Anc Procedures: 39741 IV Ultrasound Ea addl vessel Stenting Procedure 1: Cardiovascular Stent Procedures: 75375 Perc transcatheter placement of intracoronary stent(s), with ang Procedure 2: Cardiovascular Stent Procedures: 92372 Ea addl branch of a major coronary artery PG Care Time/CCT Total # of Minutes Spent Total Time Spent with Patient: Total time spent is greater than 50% in coordination of care (as documented) at patient's floor/unit and/or counseling patient:
[2020-08-23] MEDS: COLESTIPOL HCL 1 GM TAB PO SCH (20:41)
[2020-08-24] MEDS: NITROGLYCERIN 2% OINTMENT 30GM TUBE EXT SCH ×3 (04:25→23:21)
[2020-08-24 06:57] LABS: BUN Creatinine Ratio 16.2 (10-20); Calcium 9.1 mg/dl (8.5-10.1); Creatinine Clr Calc Pharmacy 58.4 ml/min; Est GFR (African American) 56.2; Est GFR (Non-African American) 48.5; Potassium 3.6 mmol/L (3.5-5.1)
[2020-08-24 07:03] LABS: Troponin I 15.9 ng/ml (0-0.045)
[2020-08-24] MEDS: INSULIN ASPART 100 UNITS/ML 3 ML PEN SC SCH ×4 (08:18→20:42)
[2020-08-24] MEDS: ASPIRIN 81 MG ECTAB PO SCH (08:23)
[2020-08-24] MEDS: FUROSEMIDE 40 MG TAB PO SCH (08:24)
[2020-08-24] MEDS: ISOSORBIDE MONO EXTENDED REL 60 MG TABCR PO SCH (08:24)
[2020-08-24] MEDS: CEROVITE ADV FORMULA TAB PO SCH (08:25)
[2020-08-24] MEDS: amLODIPine BESYLATE 5 MG TAB PO SCH (08:26)
[2020-08-24] MEDS: OMEGA-3 (PURIFIED FISH OIL) 1 GM CAP PO SCH (08:26)
[2020-08-24] MEDS: allopurinoL 300 MG TAB PO SCH (08:27)
[2020-08-24] MEDS: CLOPIDOGREL BISULFATE 75 MG TAB PO SCH (08:27)
[2020-08-24] MEDS: lisinopril 20 MG TAB PO SCH ×2 (08:27→23:20)
[2020-08-24] MEDS: METOPROLOL SUCC 50MG EXT REL TAB PO SCH ×2 (08:27→23:44)
[2020-08-24] MEDS: TRIAMCINOLONE ACET NASAL SPRAY 10.8ML BTL SCH (08:30)
[2020-08-24] MEDS: MULTIVITAMIN TAB PO SCH (08:31)
[2020-08-24] MEDS: POLYETHYLENE (MIRALAX) 17 GM PACK PO PRN (12:20)
[2020-08-24] MEDS: PSYLLIUM 58.6% POWDER PACKET PO SCH (12:22)
--- NOTE | 2020-08-24 14:34 | Cardiology Progress Note ---
Date of Service August 24, 2020 Assessment & Plan (1) NSTEMI (non-ST elevated myocardial infarction): 2. Multivessel coronary disease 3. Ischemic cardiomyopathyLVEF today 20-25% with worse anterior, lateral wall motion abnormality 4. Chronic diastolic heart failure 5. Type 2 diabetes 6. Hypertension 7. Dyslipidemiastatin intolerance 8. Acute on chronic renal insufficiency Patient stable post PCI yesterday to RCA, latemid LAD. Residual moderate circumflex disease. From a cardiac standpoint okay with discharge today. Home on DAPT with aspirin, clopidogrel. Continue current lisinopril 40 mg daily and Toprol-XL We will consider transition of lisinopril to Entresto as an outpatient Continue current Imdur, amlodipine. Intolerant to spironolactone and statins. Consider PCSK9 as an outpatient Continue maintenance Lasix 40 mg daily. Heart failure follow-up in 1 to 2 weeks. Follow-up with Dr. Canchola in 2 weeks. Long-term if refractory symptoms, persistent LV dysfunction could consider FFR/PCI to distal circumflex. Admission and Anticipated Discharge Date Admission Date: August 22, 2020 Subjective Feeling well this morning. No recurrent chest pain. Up around room to bathroom without symptoms. No significant pain at right radial access site. Telemetry reviewedno events Review of Systems Review of Systems: All systems reviewed & are unremarkable except as noted in HPI & below Physical Exam Physical Exam: General: comfortable, no acute distress HEENT: Sclerae anicteric Lungs: Clear to auscultation anteriorly Cardiac: Regular rate and rhythm, 2/6 holosystolic murmur Abdomen: Soft, nontender Extremities: Warm, well perfused, no edema. Right radial artery access site with no ecchymosis, hematoma. Distal pulse and sensation intact. Neuro: Nonfocal Psych: Alert orient x3, normal affect and mood Results & Data ([facility]) Vital Signs (Past 12 Hours) Vital Signs Temp Pulse Resp BP Pulse Ox 08/24/20 07:43 98.4 F 84 18 129/72 92 08/24/20 06:14 94 08/24/20 03:32 98.6 F 78 18 104/64 95 PG Care Time/CCT Total # of Minutes Spent Total Time Spent with Patient: Total time spent is greater than 50% in coordination of care (as documented) at patient's floor/unit and/or counseling patient: Coding Level of Care Code 87818 Subseq Hosp Care Lvl 3 Diagnoses NSTEMI (non-ST elevated myocardial infarction) I21.4
[2020-08-24] MEDS ORDERED: NITROGLYCERIN SL 0.4 MG/TAB TAB SL STA (14:47)
[2020-08-24] MEDS ORDERED: HEPARIN SODIUM/DEXTROSE 25,000 UNITS/500 ML BAG IV SCH (16:00)
--- NOTE | 2020-08-24 16:03 | Hospitalist Progress Note ---
Date of Service August 24, 2020 Assessment & Plan (1) NSTEMI (non-ST elevated myocardial infarction): Serial changes of anterior ischemic changes on EKGs. S/p cardiac catheterization with multivessel coronary artery disease and x2 PCI and SONYA to distal RCA-PDA and latemid LAD. Residual disease most notably in circumflex. Troponin peaked at 21.9 Continue aspirin, clopidogrel Initially discontinued Nitropaste and IV heparin however will restart these given recurrence of chest pain Continued isosorbide mononitrate extended release 60 mg p.o. daily Increase metoprolol XL 100 -> 200mg given current tachycardia Continue lisinopril during inpatient stay with goal to switch to Entresto as outpatient when more stable. Praluent cost $15 with insurance (insurance preferred over Repatha) Morphine as needed for continued pain not controlled with nitroglycerin. If needing x2 doses of this recommend switching to IV nitroglycerin for chest pain control. Appreciate cardiology ongoing management - discussed ongoing pain with Dr. Peterson who will review patient. (2) CAD, multiple vessel: As outlined above. (3) Hypertension: Continue usual medications along with Amlodipine 5 mg and nitro paste 2 inch (4) Hyperlipidemia: Patient is statin intolerant, will start on Praluent every 2 weeks as outpatient. Continue [place] 3 fish oil capsules. (5) Type 2 diabetes mellitus: HbA1C 6.5. - Hold Metformin due to risk of renal toxicity. Can restart as outpatient on this - BSG checks with SSI - pharmacy consulted for glycemic control (6) Diastolic CHF: - Currently appears euvolemic - confirmed on catheterization. - Monitor daily I&O's and body weights. (negative 307ml balance 08/22) - Continue Lasix 40 mg daily (7) Ischemic cardiomyopathy: Metoprolol succinate increased as above Switch lisinopril to Entresto as an outpatient (8) Gout: Continue allopurinol 300mg PO daily (9) DVT prophylaxis: IV heparin drip Admission and Anticipated Discharge Date Admission Date: August 22, 2020 Subjective Initially patient seen in the morning with 0/10 chest pain. However throughout the morning his chest pain increased to 1/10. Sublingual nitroglycerin given and repeat blood pressure measurements normal. Pain increasing to 3-4/10 therefore will restart on heparin IV drip and nitro patch. Chest pain feels similar to when he came in. Associated mild shortness of breath, no diaphoresis or nausea. No radiation. Review of Systems Review of Systems: All systems reviewed & are unremarkable except as noted in HPI & below Physical Exam Constitutional: well developed, well nourished and + acute distress (Chest pain) Eyes: + anicteric sclerae; normal pupil size Respiratory: normal respiratory effort, lungs clear to auscultation Cardiovascular: Rate/Rhythm: regular rate and regular rhythm Heart Sounds: no murmur Extremities: normal capillary refill and + pedal edema (Trace ankles bilaterally equal); no calf tenderness Gastrointestinal (Abdomen): normal bowel sounds, soft, nontender, no hepatos plenomegaly Musculoskeletal: no cyanosis or clubbing, extremities motor strength 5/5 Skin: no rashes, warm and dry Neurologic: moves all extremities and awake; not confused Psychiatric: A+Ox3, euthymic affect Results & Data Results & Data ([facility]) Vital Signs (Past 12 Hours) Vital Signs Temp Pulse Resp BP BP Pulse Ox 08/24/20 15:26 37.0 C 80 18 112/52 L 94 08/24/20 15:15 88 127/69 08/24/20 14:45 90 96/57 L 08/24/20 07:43 36.9 C 84 18 129/72 92 08/24/20 06:14 94 PG Care Time/CCT Total # of Minutes Spent Total Time Spent with Patient: Total time spent is greater than 50% in coordination of care (as documented) at patient's floor/unit and/or counseling patient: Coding Level of Care Code 11449 Subseq Hosp Care Lvl 3 Diagnoses NSTEMI (non-ST elevated myocardial infarction) I21.4 CAD, multiple vessel I25.10 Hypertension I10 Hyperlipidemia E78.5 Type 2 diabetes mellitus E11.9 Diastolic CHF I50.30 Ischemic cardiomyopathy I25.5 Gout M10.9 DVT prophylaxis Z29.9
--- NOTE | 2020-08-24 16:35 | XRay Report ---
SINGLE VIEW CHEST CLINICAL HISTORY: Atypical chest pain. FINDINGS: 2 AP, portable, upright chest radiographs are compared to study dated 08/22/2020 and correl ated with chest CT dated 03/07/2020. The heart is enlarged noting atherosclerotic calcification of the thoracic aorta. There is prominence of the pulmonary vasculature. Chronic interstitial thickening is similar to previous. Mild scarring/atelectasis is seen at the lung bases. Mild patchy interstitial op acities are seen throughout both lungs. No large pleural effusion or pneumothorax is identified. The skeletal structures are osteopenic. The bony thorax is grossly intact. IMPRESSION: 1. Cardiomegaly with prominence of the pulmonary vasculature. Correlate clinically for evidence of mi ld congestive failure. 2. Mild hazy interstitial airspace opacities are present in both lungs. This could represent mild pul monary edema and/or an infectious/inflammatory pneumonitis. Clinical correlation will be required ACT 112: Negative or not required by law. Electronically signed by: Nikolai Bacon M.D. 08/24/2020 4:34 PM
[2020-08-24] MEDS: Heparin IV Low Dose WITH Bolus IV SCH ×3 (16:59→17:01)
[2020-08-24] MEDS ORDERED: metFORMIN HCL 500 MG TAB PO SCH (17:00)
[2020-08-24 17:05] LABS: Hematocrit (blood only) 43.8 % (42-52); Hemoglobin 14.4 g/dL (14.0-18.0); Mean Corpuscular Hemoglobin 31.3 pg (25-34); Mean Corpuscular Volume 95.2 fL (80-100); Mean Platelet Volume 10.1 fL (7.4-10.4); Platelet Count 188 K/uL (130-400); RDW Coefficient of Variation 14.8 % (11.5-14.5); RDW Standard Deviation 51.5 fL (36.4-46.3); White Blood Count 15.77 K/uL (4.8-10.8)
[2020-08-24 17:08] LABS: Mean Corpuscular Hgb Conc 32.9 g/dL (32-36)
[2020-08-24 17:17] LABS: INR 1.1 (0.9-1.1); Partial Thromboplastin Time 26.7 Seconds (21.0-31.0); Prothrombin Time 11.1 Seconds (9.0-12.0)
[2020-08-24 17:31] LABS: BUN Creatinine Ratio 17.1 (10-20); Calcium 9.3 mg/dl (8.5-10.1); Creatinine Clr Calc Pharmacy 51.7 ml/min; Est GFR (African American) 48.5; Est GFR (Non-African American) 41.9; Troponin I 11.5 ng/ml (0-0.045)
[2020-08-24] MEDS ORDERED: MoRPHine SULFATE 2 MG/ML CARP IV PRN (17:34)
[2020-08-24] MEDS ORDERED: HEPARIN IV BOLUS 4,000 UNITS in SYRINGE 0 ML IV ONE (18:00)
[2020-08-24] MEDS ORDERED: FUROSEMIDE 40 MG in SYRINGE 0 ML IV STA (19:12)
[2020-08-24] MEDS ORDERED: POTASSIUM CHLORIDE CRTAB 20 MEQ TABCR PO STA (19:12)
[2020-08-24 19:31] LABS: Magnesium 1.7 mg/dl (1.8-2.4)
[2020-08-24] MEDS ORDERED: niCARdipine HCL INJ 2.5 MG/ML 10 ML AMP ONE (21:17)
[2020-08-24] MEDS ORDERED: fentaNYL citrate 100 MCG/2 ML VIAL ONE (21:17)
[2020-08-24] MEDS ORDERED: HEPARIN (PORCINE) 1000 UNIT/ML 10 ML (CATH LAB USE ONLY) ONE (21:17)
[2020-08-24] MEDS ORDERED: MIDAZOLAM HCL 1 MG/ML 2ML VIAL ONE (21:18)
[2020-08-24] MEDS ORDERED: NITROGLYCERIN/D5W 100MCG/ML 20ML SYR ONE (21:18)
--- NOTE | 2020-08-24 21:36 | Pre Anesthesia Assessment ---
Date of Service August 24, 2020 Pre Sedation Assessment Vital Signs Temp Pulse Pulse Resp BP BP Pulse Ox 08/24/20 20:47 107 H 22 137/79 96 08/24/20 18:47 99.7 F H 110 H 18 94 08/24/20 18:39 120 H 141/80 H 08/24/20 16:30 103 H 146/83 H 08/24/20 16:00 93 H 08/24/20 15:58 96 H 131/76 08/24/20 15:26 98.6 F 80 18 112/52 L 94 08/24/20 15:15 88 127/69 08/24/20 14:45 90 96/57 L 08/24/20 07:43 98.4 F 84 18 129/72 92 08/24/20 06:14 94 08/24/20 03:32 98.6 F 78 18 104/64 95 08/23/20 23:46 97.7 F 85 19 120/73 96 Cardiovascular RRR, no murmur, no edema Respiratory normal respiratory effort, lungs clear to auscultation Pre-Sedation Airway Assessment Smoking Status: Never smoker Hx Sleep Apnea: No Hx Difficult Intubation: No Short, Thick Neck: No Thyromental Distance: > or= 3.5 Finger Breadths Oral Cavity: + WNL Mallampati Class: III ASA: ASA3 Procedure Planning Contraindications for Sedation: none Current Medications Reviewed: Yes Notes The planned sedation has been discussed with the patient. Informed Consent was obtained. I have identified the patient, determined the appropriateness of sedation and have assessed the patient immediately prior to the procedure. All medicine(s) and interventions are by my order.
[2020-08-24] MEDS ORDERED: METOPROLOL TARTRATE 1 MG/ML VIAL IV ONE (22:22)
[2020-08-24] MEDS ORDERED: FUROSEMIDE 40 MG/4 ML VIAL IV ONE (22:22)
[2020-08-24] MEDS ORDERED: CLOPIDOGREL BISULFATE 300 MG TAB ONE (22:23)
--- NOTE | 2020-08-24 22:26 | Post Anesthesia Assessment ---
Date of Service August 24, 2020 Post Sedation Assessment Vital Signs Temp Pulse Pulse Resp BP BP Pulse Ox 08/24/20 20:47 107 H 22 137/79 96 08/24/20 18:47 99.7 F H 110 H 18 94 08/24/20 18:39 120 H 141/80 H 08/24/20 16:30 103 H 146/83 H 08/24/20 16:00 93 H 08/24/20 15:58 96 H 131/76 08/24/20 15:26 98.6 F 80 18 112/52 L 94 08/24/20 15:15 88 127/69 08/24/20 14:45 90 96/57 L 08/24/20 07:43 98.4 F 84 18 129/72 92 08/24/20 06:14 94 08/24/20 03:32 98.6 F 78 18 104/64 95 08/23/20 23:46 97.7 F 85 19 120/73 96 Recovery Score Activity: Moves 4 extremities Respiration: Deep Breath/Cough Circulation: +/-20% PreAnes Value Consciousness: Fully Awake Oxygen Saturation: O2 needed for >90% Discharge Sedation Level of Care: Fast Track Phase II Post Sedation Plan On clinical assessment, the patient appears to have tolerated the sedation without complications. Patient is recovering as anticipated. Patient will continue to be monitored by nursing and may be discharged when sedation discharge criteria are met per below protocol. Upon Completions of procedure up to 15 minutes continue every 5 minute vital signs and the P.A.R. score; then discharge to a Phase I or Fast Track to Phase II per the following guidelines: * Discharge Patient to appropriate Phase II area if PAR is 8 or greater or re turn to pre- procedure baseline. The post - procedure orders will be as directed. * If PAR score is less than 8 or not return to pre-procedure baseline then patient will follow Phase I monitoring till PAR is reached for Phase II. The Phase I may be done in procedure room or may call to secure a Phase I area. * If naloxone or flumazenil are used for reversal, hold in Phase I for continued monitoring from when last reversal dose was given for a minimum of 60 minutes or longer pending the nurse and/or physician discretion of patient condition before discharge to Phase II. Please call the Sedation Physician to re-evaluate and complete post-note for discharge to Phase II area. Do NOT discharge from procedure sedation or Phase 1 until post- sedation evaluation note is complete by procedure /sedation MD Sedation Discharge Instructions to be given to the patient at discharge to home.
--- NOTE | 2020-08-24 22:43 | Cardiac Catheterization ---
[facility] Data: [facility] Cardiac Status Clinical evaluation leading to the procedure CAD Presenation: Non STEMI Anginal Classification: CCS IV Heart Failure: NYHA Class: CCS IV Cardiogenic Shock within 24 Hours: No Cardiac Arrest within 24 Hours: No Imaging Studies Past 6 Months: Yes Stress Studies Past 6 Months: No Diagnostic Physicians Name: Yassine Peterson MD Status: Urgent Closure Device Percutaneous Entry Location: Radial Closure Device: Radial Band Recommendations: PCI without planned CABG PCI Indication: PCI for high risk Non-ALEKSANDAR Lesion Segment Name: Distal circumflex Culprit Artery: Yes Stenosis Prior to Rx (%): 70 Chronic Total Occlusion: No IVUS: No FFR: No Pre-Procedure KURT Flow: 3 Previously Treated Lesion: No Lesion Complexity: Non-High/Non-C Lesion Length (mm): 12 Thrombus Present: No Bifurcation Lesion: Yes Guidewire Across Lesion: Stenosis Post-Procedure (%): 0 Post-Procedure KURT Flow: 3 Devices(s) Deployed: Yes Yes Intraprocedure Events Significant Disection: No Perforation: No Cardiac Cath Procedure Full Procedure Date August 24, 2020 Pre-Procedure Diagnosis Pre-Procedure Diagnosis: Acute Coronary Syndrome AUC Score AUC Score: 8 Post-Procedure Diagnosis Post-Procedure Diagnosis: Severe CAD, Successful PCI and Elevated Intracardiac Pressures Procedure(s) Performed Procedure(s) Performed: Coronary Angiography, Left Heart Cath and Drug Eluting S tent Service Delivery Manager Yassine Peterson MD Light Bulb Replacer(s) Wolfgang Estimated Blood Loss Estimated Blood Loss: 15 Medication(s) Medication(s): Clopidogrel, Fentanyl, Heparin, Lidocaine 1%, Nicardipine, Nitrog lycerin and Versed Summary of Findings Indication: Patient admitted with NSTEMI and is post PCI with stent to distal RCA and latemid LAD yesterday. At that time noted to have moderate to severe residual circumflex disease. Had been feeling well and chest pain-free until this afternoon when had recurrent chest pain which was refractory to topical nitrates, morphine. ECG unchanged. Due to persistent pain reminiscent of presenting symptoms patient brought back to [facility] for repeat evaluation. Access: 6 Fr right radial artery Catheters: Medora, diagnostic JR4, EBU 3.5 guide Findings: LM -20 to 30% ostial stenosis LAD - 40% mid in-stent restenosis (mild disease by IVUS), patent late to mid LAD stent. D1 with unchanged 40% ostial stenosis. Circumflex -large caliber vessel, 30 to 40% ostial stenosis, hazy/calcified 60 to 70% distal circumflex after large OM 3 (unchanged. Distal vessel gives off collaterals to right posterior lateral branch. RCA -dominant, medium caliber, 40 percent proximal stenosis, mid segment ectatic with mild disease, widely patent distal RCA into PDA stent. Subtotal occlusion of right posterior AV branch. LVEDP -22 -- PCI of distal circumflex-- Antithrombotic therapy: Heparin, clopidogrel Procedure: Left main cannulated with EBU 3.5 guide BMW wire passed across lesion into distal circumflex Distal circumflex lesion predilated with 2.5 compliant balloon Prowater wire placed in OM 3 Dilated lesion stented with 2.75 x 15 mm Xience Anika drug-eluting stent Stent post-dilated with 3.0 noncompliant balloon IC vasodilators administered for spasm Post procedure KURT 3 flow, stent well expanded with minimal residual stenosis and KURT-3 flow in OM3 with minimal ostial stenosis. Arterial Closure: TR band In the setting of elevated filling pressures, sinus tachycardia given 40 of IV Lasix and 5 of IV Lopressor. Summary: 1. Widely patent latemid LAD, distal RCA stents. 2. Stable moderate to severe distal circumflex disease 3. Acute systolic heart failure (LVEDP 22). 4. Successful PCI of distal circumflex with single drug-eluting stent (2.75 x 15 mm Xience; postdilated with 3.0 NC) Recommendations: To PCU for continued monitoring Reloaded with clopidogrel 300 mg in [facility] Continue dual-antiplatelet therapy for at least 1 year, likely extended DAPT in the setting of multivessel stenting. Follow-up urine output, renal function. Possible additional IV diuresis tomorrow Increase Toprol-XL to 100 mg twice daily Hold SOPHIE inhibitor in a.m. Continue current amlodipine, Imdur Hemodynamics Rest Ao:: 110/70/87 Final Ao: 114/76/90 LV: 117/22 Recommendations Recommendations: PCI without planned CABG Specimens Specimens: None Radiation Exposure (mGy) 2721 Contrast (mls) 55 Fluids (cc crystalloids) Fluids (cc crystalloids): 80 Drains Drains: None Anesthesia Moderate Procedural Complication(s) None Disposition PCU I attest to the content of the Intraoperative Record and any orders documented therein. Any exceptions are noted below. [facility] Card Cath Procedure Codes Cardiac Catheterization Procedure 1: Cardiovascular Cath Procedures: 29052 Coronaries and LHC (+/-LV) Moderate Sedation Procedure 1: Sedation/Anesthesia: 64258 Mod Sedation by the same physician;Init15 Min Child Age 5 & Up Procedure 2: Sedation/Anesthesia: 08034 Mod Sedation by the same physician; Ea [id number] Minutes Stenting Procedure 1: Cardiovascular Stent Procedures: 80128 Perc transcatheter placement of intracoronary stent(s), with ang PG Care Time/CCT Total # of Minutes Spent Total Time Spent with Patient: Total time spent is greater than 50% in coordination of care (as documented) at patient's floor/unit and/or counseling patient:
[2020-08-24] MEDS: COLESTIPOL HCL 1 GM TAB PO SCH (23:44)
[2020-08-25 07:19] LABS: BUN Creatinine Ratio 14.5 (10-20); Calcium 9.5 mg/dl (8.5-10.1); Creatinine Clr Calc Pharmacy 47.1 ml/min; Est GFR (African American) 43.5; Est GFR (Non-African American) 37.5; Potassium 3.6 mmol/L (3.5-5.1)
--- NOTE | 2020-08-25 07:56 | Electrocardiogram Report ---
Test Reason : Blood Pressure : / mmHG Vent. 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
[2020-08-25] MEDS ORDERED: POTASSIUM CHLORIDE CRTAB 20 MEQ TABCR PO ONE (08:00)
[2020-08-25] MEDS ORDERED: MAGNESIUM OXIDE 400 MG TAB PO ONE (08:00)
--- NOTE | 2020-08-25 08:18 | Electrocardiogram Report ---
Test Reason : Blood Pressure : / mmHG Vent. 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
[2020-08-25] MEDS: INSULIN ASPART 100 UNITS/ML 3 ML PEN SC SCH ×4 (08:37→21:12)
[2020-08-25] MEDS: allopurinoL 300 MG TAB PO SCH (08:39)
[2020-08-25] MEDS: CEROVITE ADV FORMULA TAB PO SCH (08:39)
[2020-08-25] MEDS: CLOPIDOGREL BISULFATE 75 MG TAB PO SCH (08:39)
[2020-08-25] MEDS: ISOSORBIDE MONO EXTENDED REL 60 MG TABCR PO SCH (08:39)
[2020-08-25] MEDS: amLODIPine BESYLATE 5 MG TAB PO SCH (08:39)
[2020-08-25] MEDS: PSYLLIUM 58.6% POWDER PACKET PO SCH (08:39)
[2020-08-25] MEDS: ASPIRIN 81 MG ECTAB PO SCH (08:39)
[2020-08-25] MEDS: OMEGA-3 (PURIFIED FISH OIL) 1 GM CAP PO SCH (08:39)
[2020-08-25] MEDS: TRIAMCINOLONE ACET NASAL SPRAY 10.8ML BTL SCH (08:39)
[2020-08-25] MEDS: MULTIVITAMIN TAB PO SCH (08:40)
[2020-08-25] MEDS ORDERED: METOPROLOL SUCC 50MG EXT REL TAB PO SCH (09:00)
--- NOTE | 2020-08-25 09:36 | Electrocardiogram Report ---
Test Reason : Blood Pressure : / mmHG Vent. 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
--- NOTE | 2020-08-25 09:47 | Cardiology Progress Note ---
Date of Service August 25, 2020 Assessment & Plan (1) NSTEMI (non-ST elevated myocardial infarction): 2. Multivessel coronary disease 3. Ischemic cardiomyopathyLVEF today 20-25% with worse anterior, lateral wall motion abnormality 4. Chronic diastolic heart failure 5. Type 2 diabetes 6. Hypertension 7. Dyslipidemiastatin intolerance 8. Acute on chronic renal insufficiency Patient with mild residual, pleuritic chest discomfort. Repeat cardiac catheterization showed unchanged anatomy. Had uncomplicated PCI to distal circumflex lesion but do not feel his chest pain yesterday/today is secondary to his coronary artery disease. Question some component of his symptoms secondary to heart failure although minimal apparent congestion on exam today. Consider other etiologies of pleuritic chest pain including PE. Continue aspirin, clopidogrel Repeat chest x-ray, proBNP For now hold SOPHIE inhibitor, additional diuretics Continue current beta-ruby, amlodipine, Imdur. We will continue to follow. Admission and Anticipated Discharge Date Admission Date: August 22, 2020 Subjective Patient had recurrent chest pain yesterday afternoon/evening with worsening shortness of breath. ECG unchanged. Taken urgently back for cardiac catheterization which revealed widely patent stents and unchanged moderate to severe distal circumflex disease with KURT-3 flow. Underwent uncomplicated PCI of distal circumflex with placement of a single drug-eluting stent. Also given 40 of IV Lasix in the setting of LVEDP of 22. Overnight telemetry unremarkable. Net positive I/Os. Weight down a pound. Still with mild residual chest pain, pleuritic in nature. Mild dyspnea. Review of Systems Review of Systems: All systems reviewed & are unremarkable except as noted in HPI & below Physical Exam Physical Exam: General: Appears tired, sitting up in chair HEENT: Sclerae anicteric Lungs: Clear aside from possibly decreased breath sounds at right base Cardiac: Regular rate and rhythm, 2/6 holosystolic murmur. No apparent JVD Abdomen: Soft, nontender Extremities: Warm, well perfused, no edema. Right radial artery access site with no ecchymosis, hematoma. Distal pulse and sensation intact. Neuro: Nonfocal Psych: Alert orient x3, normal affect and mood Results & Data ([facility]) Vital Signs (Past 12 Hours) Vital Signs Temp Pulse Pulse Resp BP BP BP 08/25/20 07:40 98.2 F 85 20 118/72 08/25/20 07:25 85 12/24/20 03:30 98.8 F 79 19 104/70 08/25/20 02:31 88 20 135/84 08/25/20 01:31 90 18 139/82 08/25/20 00:31 92 H 18 121/75 08/25/20 00:01 99 H 20 156/101 H 08/24/20 23:31 99 H 22 143/94 H 08/24/20 23:16 99 H 22 129/75 08/24/20 23:01 99 H 20 155/89 H 08/24/20 22:46 98.4 F 101 H 18 145/87 H 08/24/20 22:27 107 H 137/79 Pulse Ox 08/25/20 07:40 96 08/25/20 07:25 08/25/20 03:30 92 08/25/20 02:31 97 08/25/20 01:31 97 08/25/20 00:31 96 08/25/20 00:01 96 08/24/20 23:31 96 08/24/20 23:16 96 08/24/20 23:01 94 08/24/20 22:46 94 08/24/20 22:27 PG Care Time/CCT Total # of Minutes Spent Total Time Spent with Patient: Total time spent is greater than 50% in coordination of care (as documented) at patient's floor/unit and/or counseling patient: Coding Level of Care Code 12377 Subseq Hosp Care Lvl 3 Diagnoses NSTEMI (non-ST elevated myocardial infarction) I21.4
--- NOTE | 2020-08-25 11:31 | XRay Report ---
TWO VIEW CHEST CLINICAL HISTORY: Dyspnea. FINDINGS: PA and lateral chest radiographs are compared to study dated 08/24/2020 and correlated with chest CT dated 03/07/2020. The heart is enlarged. There is prominence of the portal vasculature. Inter stitial opacities at the lung bases have partially cleared as compared to yesterday. There is no pleu ral effusion or pneumothorax. The skeletal structures are osteopenic. The bony thorax appears intact. IMPRESSION: 1. Cardiomegaly with prominence of the pulmonary vasculature. Correlate clinically for evidence of mi ld congestive failure. 2. Interstitial opacities at the lung bases have partially cleared as compared to yesterday. ACT 112: Negative or not required by law. Electronically signed by: Nikolai Bacon M.D. 08/25/2020 11:29 AM
[2020-08-25] MEDS: METOPROLOL SUCC 50MG EXT REL TAB PO SCH ×2 (11:57→22:15)
--- NOTE | 2020-08-25 17:34 | Hospitalist Progress Note ---
Date of Service August 25, 2020 Assessment & Plan (1) Pleuritic chest pain: Suspected residual pain not from CAD. Differential includes pulmonary embolism however not tachycardic or hypoxic and unless getting worse will avoid overtreatment as currently would avoid CT for PE given x2 intravenous contrast given for cath procedures and renal function worsening (suspect due to lasix given). Positional (worse on lying down) - possible pericarditis GI - possible gastrointestinal related despite feeling similar to the pain he came in with. Start famotidine 20mg PO daily. (2) NSTEMI (non-ST elevated myocardial infarction): Serial changes of anterior ischemic changes on EKGs. S/p cardiac catheterization with multivessel coronary artery disease and x2 PCI and SONYA to distal RCA-PDA and latemid LAD. Ongoing chest pain therefore taken back to [facility] for PCI and SONYA to residual disease in circumflex Troponin peaked at 21.9 Continue aspirin, clopidogrel Continued isosorbide mononitrate extended release 60 mg p.o. daily Increase metoprolol XL 100 daily -> BID per cardiology recommendations Hold lasix and lisinopril in setting of relative hypotension and worsening renal function Praluent cost $15 with insurance (insurance preferred over Repatha) Appreciate cardiology ongoing management. (3) CAD, multiple vessel: As outlined above. (4) Hypertension: Hold Lasix and lisinopril as above Continue usual medications along with Amlodipine 5 mg (5) Hyperlipidemia: Patient is statin intolerant, start on Praluent every 2 weeks as outpatient. Continue [place] 3 fish oil capsules. (6) Type 2 diabetes mellitus: HbA1C 6.5. - Hold Metformin due to risk of renal toxicity. Can restart as outpatient on this - BSG checks with [facility] - pharmacy consulted for glycemic control (7) Diastolic CHF: Increased lasix yesterday prior to and during 2nd cardiac cath Increased Cr today ?due to overdiuresis vs. contrast induced nephropathy. Will hold off further diuretics per cardiology recommendations. - Monitor daily I&O's and body weights. (negative -612ml balance 08/24) (8) Ischemic cardiomyopathy: Metoprolol succinate increased as above Switch lisinopril to Entresto as an outpatient (9) Gout: Continue allopurinol 300mg PO daily (10) DVT prophylaxis: Previously on IV heparin. Will hold off further anticoagulation today in setting of second plavix loading dose and aspirin. Admission and Anticipated Discharge Date Admission Date: August 22, 2020 Subjective Ongoing substernal chest pain. 3-4/10 on lying down, 1-2/10 on sitting up. Similar pain to when he came in. No radiation. Non exertional. No relationship to food. Review of Systems Review of Systems: All systems reviewed & are unremarkable except as noted in HPI & below Physical Exam Constitutional: well developed, well nourished and + morbidly obese; no acute distress Eyes: + anicteric sclerae; normal pupil size Neck: trachea midline Respiratory: normal respiratory effort, lungs clear to auscultation Cardiovascular: Rate/Rhythm: regular rate and regular rhythm Heart Sounds: no murmur Vessels: no JVD Extremities: normal capillary refill and + pedal edema (Trace ankles bilaterally equal); no calf tenderness Gastrointestinal (Abdomen): normal bowel sounds, soft, nontender, no he patosplenomegaly Skin: no rashes, warm and dry Neurologic: moves all extremities and awake; not confused Results & Data Results & Data ([facility]) Vital Signs (Past 12 Hours) Vital Signs Temp Pulse Pulse Resp BP BP Pulse Ox 08/25/20 15:04 94 08/25/20 15:03 38.0 C H 87 19 101/62 86 L 08/25/20 11:33 36.9 C 75 16 95/56 L 97 08/25/20 07:40 36.8 C 85 20 118/72 96 08/25/20 07:25 85 Diagnostic Findings TWO VIEW CHEST IMPRESSION: 1. Cardiomegaly with prominence of the pulmonary vasculature. Correlate clinically for evidence of mild congestive failure. 2. Interstitial opacities at the lung bases have partially cleared as compared to yesterday. ECG Indication: chest pain Rate (beats per minute): 83 Rhythm: normal sinus Findings: + other (Nonspecific lateral T wave changes) and + 1st degree AV block Comparison ECG Date: from (August 24, 2020) Change: no significant change PG Care Time/CCT Total # of Minutes Spent Total Time Spent with Patient: Total time spent is greater than 50% in coordination of care (as documented) at patient's floor/unit and/or counseling patient: Coding Level of Care Code 20885 Subseq Hosp Care Lvl 3 Diagnoses Pleuritic chest pain R07.81 NSTEMI (non-ST elevated myocardial infarction) I21.4 CAD, multiple vessel I25.10 Hypertension I10 Hyperlipidemia E78.5 Type 2 diabetes mellitus E11.9 Diastolic CHF I50.30 Ischemic cardiomyopathy I25.5 Gout M10.9 DVT prophylaxis Z29.9
[2020-08-25] MEDS: COLESTIPOL HCL 1 GM TAB PO SCH (20:04)
[2020-08-25] MEDS ORDERED: FAMOTIDINE 20 MG TAB PO SCH (21:00)
[2020-08-26] MEDS: allopurinoL 300 MG TAB PO SCH (07:46)
[2020-08-26] MEDS: MULTIVITAMIN TAB PO SCH (07:46)
[2020-08-26] MEDS: CLOPIDOGREL BISULFATE 75 MG TAB PO SCH (07:46)
[2020-08-26] MEDS: OMEGA-3 (PURIFIED FISH OIL) 1 GM CAP PO SCH (07:46)
[2020-08-26] MEDS: CEROVITE ADV FORMULA TAB PO SCH (07:47)
[2020-08-26] MEDS: ASPIRIN 81 MG ECTAB PO SCH (07:47)
[2020-08-26] MEDS: ISOSORBIDE MONO EXTENDED REL 60 MG TABCR PO SCH (07:47)
[2020-08-26] MEDS: PSYLLIUM 58.6% POWDER PACKET PO SCH (07:47)
[2020-08-26] MEDS: amLODIPine BESYLATE 5 MG TAB PO SCH (07:47)
[2020-08-26] MEDS: TRIAMCINOLONE ACET NASAL SPRAY 10.8ML BTL SCH (07:48)
[2020-08-26] MEDS: INSULIN ASPART 100 UNITS/ML 3 ML PEN SC SCH ×4 (08:00→21:09)
[2020-08-26 08:33] LABS: Basophils # (auto) 0.02 K/uL (0-0.2); Basophils % (auto) 0.2 %; Eosinophils # (auto) 0.27 K/uL (0-0.5); Eosinophils % (auto) 2.2 %; Hematocrit (blood only) 40.3 % (42-52); Hemoglobin 13.5 g/dL (14.0-18.0); Immature Granulocytes # (auto) 0.03 K/uL (0.00-0.02); Immature Granulocytes % (auto) 0.2 %; Lymphocytes # (auto) 1.14 K/uL (1.2-3.4); Lymphocytes % (auto) 9.3 %; Mean Corpuscular Hemoglobin 31.5 pg (25-34); Mean Corpuscular Hgb Conc 33.5 g/dL (32-36); Mean Corpuscular Volume 93.9 fL (80-100); Mean Platelet Volume 10.8 fL (7.4-10.4); Monocytes % (auto) 7.3 %; Neutrophils # (auto) 9.91 K/uL (1.4-6.5); Neutrophils % (auto) 80.8 %; Platelet Count 209 K/uL (130-400); RDW Coefficient of Variation 14.8 % (11.5-14.5); RDW Standard Deviation 50.3 fL (36.4-46.3); Red Blood Count 4.29 M/uL (4.7-6.1); White Blood Count 12.27 K/uL (4.8-10.8)
[2020-08-26] MEDS ORDERED: ALUMINUM/MAGNESIUM SUSP 30 ML UDC PO PRN (08:42)
[2020-08-26 09:06] LABS: BUN Creatinine Ratio 25.8 (10-20); Calcium 9.1 mg/dl (8.5-10.1); Est GFR (African American) 46.7; Est GFR (Non-African American) 40.3
[2020-08-26] MEDS: POLYETHYLENE (MIRALAX) 17 GM PACK PO PRN (09:15)
[2020-08-26] MEDS: METOPROLOL SUCC 50MG EXT REL TAB PO SCH ×2 (12:17→20:56)
--- NOTE | 2020-08-26 12:52 | Cardiology Progress Note ---
Date of Service August 26, 2020 Assessment & Plan Admission and Anticipated Discharge Date Admission Date: August 22, 2020 Subjective He describes a chest discomfort that is worse laying down and better sitting up he notes sitting in a chair at approximately a 1 out of 10 but when he lays in bed it is a 3-4 out of 10. Is unchanged from yesterday. He denies that there is a sensation of feeling like an elephant sitting on his chest and it has not worsened since yesterday. Overnight he went into atrial fibrillation with a controlled ventricular response. He is unaware of any palpitations or fluttering the does not feel any different in sinus rhythm compared to atrial fibrillation. This does raise the question as to whether he may have been having atrial fibrillation at home as well. He denies any dark stools or black tarry stools. He denies coughing up any blood or vomiting any blood. He denies any orthostatic symptoms. His appetite is very good. He has no significant lower extremity edema. He is not short of breath talking in sentences. The rest of a complete review of systems is otherwise negative Results & Data ([facility]) Vital Signs (Past 12 Hours) Vital Signs Temp Pulse Pulse Resp BP BP Pulse Ox 08/26/20 12:14 37.1 C 95 H 20 118/59 L 93 08/26/20 08:05 36.7 C 89 18 98/66 L 95 08/26/20 03:42 36.8 C 99 H 16 107/70 95 he is awake alert oriented x3 he is in no acute distress HEENT: Markedly reduced carotid upstrokes Lungs: Clear to auscultation bilaterally no rales rhonchi or wheezing Heart: Irregular rate and rhythm there is a soft systolic ejection murmur Abdomen: Soft nontender distended positive bowel sounds Extremities: No clubbing cyanosis or edema Psychiatric his affect appear appropriate Assessment & Plan (1) NSTEMI (non-ST elevated myocardial infarction): 2. Multivessel coronary disease with coronary intervention x2 in 2 vascular territories this admission 3. Ischemic cardiomyopathyLVEF today 20-25% with worse anterior, lateral wall motion abnormality 4. Chronic diastolic heart failure 5. Type 2 diabetes 6. Hypertension 7. Dyslipidemiastatin intolerance 8. 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 New onset atrial fibrillation at approximately midnight on August 26, 2020 This was discussed with Dr. Hammond. The challenge now is discussion of his anticoagulation and antiplatelet agents. 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 Therefore I made the following recommendations: 1.stop his aspirin 2. add colchicine 0.6 mg twice daily as it does have antiplatelet effect as well 3. he will remain on Plavix 75 mg daily 4. If he remains in atrial fibrillation tomorrow he will need to start apixaban. His creatinine is 1.7 he is only 75 years of age but given the fact that he is probably going to need to be on triple therapy for at least a month 2-1/2 mg of apixaban twice a day may be the better option. His rates in atrial fibrillation are reasonably well controlled. If he needs better rate control his beta-blockers can be increased. 5. He may be having episodes of atrial fibrillation at home that he has been unaware of. This would not surprise me as he is completely asymptomatic in A. fib today. This makes the need for long-term anticoagulation more likely. 6. There is no appreciable rub on exam. And clinically he was not in heart failure. Dr. Ibarra will return tomorrow for the weekend coverage 7. Depending on where his renal function ends up there should be consideration of Entresto
--- NOTE | 2020-08-26 13:22 | Hospitalist Progress Note ---
Date of Service August 26, 2020 Assessment & Plan (1) New onset atrial fibrillation: Converted to new onset atrial fibrillation overnight. Per cardiology recommendations will start on apixaban tomorrow if does not convert. Rate controlled on metoprolol succinate 100mg PO BID Will defer repeat limited TTE to cardiology as below. (2) Pleuritic chest pain: Suspected residual pain not from CAD. Discussed with Dr. 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 ESR/CRP with AM labs. No significant change with famotidine or Maalox suggesting not gastrointestinal If renal function continues to improve consider CT for PE in AM. (3) NSTEMI (non-ST elevated myocardial infarction): Serial changes of anterior ischemic changes on EKGs. S/p cardiac catheterization with multivessel coronary artery disease and x2 PCI and SONYA to distal RCA-PDA and latemid LAD. Ongoing chest pain therefore taken back to label printing machinist for PCI and SONYA to residual disease in circumflex Troponin peaked at 21.9 Continue aspirin, clopidogrel Continued isosorbide mononitrate extended release 60 mg p.o. daily Increase metoprolol XL 100 daily -> BID per cardiology recommendations Hold lasix and lisinopril in setting of relative hypotension and worsening renal function Praluent cost $15 with insurance (insurance preferred over Repatha) - needs prescribing on discharge. Appreciate cardiology ongoing management. (4) CAD, multiple vessel: As outlined above. (5) Hypertension: Relative hypotension - patient asymptomatic Hold Lasix, lisinopril and amlodipine as above Continue ISMN currently however if BP continues to be low may need to discontinue this. (6) Hyperlipidemia: Patient is statin intolerant, will start on Praluent every 2 weeks as outpatient. Continue [place] 3 fish oil capsules. (7) Type 2 diabetes mellitus: HbA1C 6.5. - Hold Metformin due to risk of renal toxicity. Can restart as outpatient on this - BSG checks with SSI - pharmacy consulted for glycemic control (8) Diastolic CHF: - Currently appears euvolemic - confirmed on catheterization. - Monitor daily I&O's and body weights. (negative 307ml balance 08/22) - Holding further lasix with repeat CXR (9) Ischemic cardiomyopathy: Metoprolol succinate increased as above Possibly will start on Entresto as outpatient (10) Gout: Continue allopurinol 300mg PO daily (11) DVT prophylaxis: SCDs Possibly will start on apixaban in AM if still in a. fib Admission and Anticipated Discharge Date Admission Date: August 22, 2020 Subjective Ongoing substernal chest pain. 3-4/10 on lying down, 1-2/10 on sitting up. Sharp, worse on inspiration. Similar pain to when he came in. No radiation. Non exertional. No relationship to food. No associated diaphoresis or shortness of breath. Converted to a. fib just after midnight on telemetry. Patient not having any more symptoms with this. No palpitations or increased leg swelling. Review of Systems Review of Systems: All systems reviewed & are unremarkable except as noted in HPI & below Physical Exam Constitutional: well developed, well nourished and + morbidly obese; no acute distress Eyes: + anicteric sclerae; normal pupil size ENMT: external ear and nose normal, oropharynx normal Neck: trachea midline Respiratory: normal respiratory effort, lungs clear to auscultation Cardiovascular: Rate/Rhythm: regular rate and + irregularly irregular Heart Sounds: no murmur Vessels: no JVD Extremities: + pedal edema (Trace ankles bilaterally equal); no calf tenderness Chest (Breasts): Additional Comments: No pain on palpation Gastrointestinal (Abdomen): normal bowel sounds, soft, nontender, no hepatosplenomegaly Neurologic: moves all extremities and awake; not confused Psychiatric: A+Ox3, euthymic affect Results & Data Results & Data ([facility]) Vital Signs (Past 12 Hours) Vital Signs Temp Pulse Pulse Resp BP BP Pulse Ox 08/26/20 12:14 37.1 C 95 H 20 118/59 L 93 08/26/20 08:05 36.7 C 89 18 98/66 L 95 08/26/20 03:42 36.8 C 99 H 16 107/70 95 ECG Indication: chest pain Rate (beats per minute): 89 Rhythm: atrial fibrillation Comparison ECG Date: from (August 26, 2020) Change: the following changes noted (a. fib is new) PG Care Time/CCT Total # of Minutes Spent Total Time Spent with Patient: Total time spent is greater than 50% in coordination of care (as documented) at patient's floor/unit and/or counseling patient: Coding Level of Care Code 10926 Subseq Hosp Care Lvl 3 Diagnoses New onset atrial fibrillation I48.91 Pleuritic chest pain R07.81 NSTEMI (non-ST elevated myocardial infarction) I21.4 CAD, multiple vessel I25.10 Hypertension I10 Hyperlipidemia E78.5 Type 2 diabetes mellitus E11.9 Diastolic CHF I50.30 Ischemic cardiomyopathy I25.5 Gout M10.9 DVT prophylaxis Z29.9
--- NOTE | 2020-08-26 13:55 | Pharmacy Report ---
Pharmacy Glycemic Short Note 2 - Date of Service August 26, 2020 - Glycemic Short BSG Results (Last 24 hours): 08/25/20 08/25/20 08/26/20 16:22 20:06 07:26 Glucose POC Glucose 122 H 172 H 147 H 08/26/20 08/26/20 08:00 11:31 Glucose 172 H POC Glucose 148 H OUTPATIENT ANTIDIABETIC REGIMEN: * metformin 500 bid * A1c = 6.5% 08/23/20 ASSESSMENT: * Moisés received 19 units of bolus insulin yesterday * Fasting BSG = 147 mg/dL. Will continue to hold on basal insulin. May need to consider adding basal if fasting trends up any further. * Post prandial BSGs are acceptable. Continue current Novolog parameters. PLAN FOR INPATIENT GLYCEMIC CONTROL: * Hold outpatient oral diabetes medications * Basal insulin * Lantus - hold * Bolus insulin * NovoLog per scale ACHS or Q6hrs while NPO * Goal Range: Low 110 mg/dL - High 140 mg/dL * Correction Factor: 25 mg/dL/unit * Nutritional / Prandial insulin per carb ratio of 1 unit per 8 grams CHO consumed PLAN FOR DISCHARGE: * A1c of 6.5 indicates good glycemic control. Would consider continuation of home metformin as long as no contraindications exist
[2020-08-26] MEDS: COLCHICINE 0.6 MG TAB PO SCH ×2 (14:06→20:55)
[2020-08-26] MEDS: FAMOTIDINE 20 MG TAB PO SCH (20:55)
[2020-08-26] MEDS: COLESTIPOL HCL 1 GM TAB PO SCH (20:55)
[2020-08-27] MEDS ORDERED: DOCUSATE SODIUM 100 MG CAP PO PRN (02:59)
[2020-08-27 06:29] LABS: Basophils # (auto) 0.02 K/uL (0-0.2); Basophils % (auto) 0.2 %; Eosinophils # (auto) 0.48 K/uL (0-0.5); Hematocrit (blood only) 38.4 % (42-52); Hemoglobin 12.7 g/dL (14.0-18.0); Immature Granulocytes # (auto) 0.02 K/uL (0.00-0.02); Immature Granulocytes % (auto) 0.2 %; Lymphocytes # (auto) 1.41 K/uL (1.2-3.4); Lymphocytes % (auto) 11.8 %; Mean Corpuscular Hemoglobin 31.1 pg (25-34); Mean Corpuscular Hgb Conc 33.1 g/dL (32-36); Mean Corpuscular Volume 93.9 fL (80-100); Mean Platelet Volume 10.6 fL (7.4-10.4); Monocytes # (auto) 0.72 K/uL (0.11-0.59); Neutrophils # (auto) 9.33 K/uL (1.4-6.5); Neutrophils % (auto) 77.8 %; Platelet Count 217 K/uL (130-400); RDW Coefficient of Variation 14.6 % (11.5-14.5); RDW Standard Deviation 49.3 fL (36.4-46.3); Red Blood Count 4.09 M/uL (4.7-6.1); White Blood Count 11.98 K/uL (4.8-10.8)
[2020-08-27 06:55] LABS: BUN Creatinine Ratio 26.5 (10-20); Creatinine Clr Calc Pharmacy 52.5 ml/min; Est GFR (African American) 48.9; Est GFR (Non-African American) 42.2; Potassium 4.5 mmol/L (3.5-5.1)
[2020-08-27 07:05] LABS: C Reactive Protein 16.9 mg/dl (0-0.29); Thyroid Stimulating Hormone 1.97 uIu/ml (0.300-4.500)
--- NOTE | 2020-08-27 07:16 | XRay Report ---
XR chest 2V PA/lateral CLINICAL HISTORY: Chest pain, hypoxia COMPARISON STUDY: 08/25/2020 FINDINGS: The heart is enlarged. There is no failure. There is no acute vertebral consolidation. Ther e is minimal blunting of the left lateral costophrenic angle. 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 Cardiomegaly 2. No evidence of focal pulmonary consolidation 3. Possible trace left pleural effusion ACT 112: Negative or not required by law. Electronically signed by: Corona العلي M.D. 08/27/2020 7:15 AM
[2020-08-27] MEDS: COLCHICINE 0.6 MG TAB PO SCH ×2 (08:03→21:09)
[2020-08-27] MEDS: allopurinoL 300 MG TAB PO SCH (08:03)
[2020-08-27] MEDS: METOPROLOL SUCC 50MG EXT REL TAB PO SCH ×2 (08:03→21:09)
[2020-08-27] MEDS: ISOSORBIDE MONO EXTENDED REL 60 MG TABCR PO SCH (08:04)
[2020-08-27] MEDS: CLOPIDOGREL BISULFATE 75 MG TAB PO SCH (08:04)
[2020-08-27] MEDS: MULTIVITAMIN TAB PO SCH (08:04)
[2020-08-27] MEDS: PSYLLIUM 58.6% POWDER PACKET PO SCH (08:04)
[2020-08-27] MEDS: OMEGA-3 (PURIFIED FISH OIL) 1 GM CAP PO SCH (08:04)
[2020-08-27] MEDS: CEROVITE ADV FORMULA TAB PO SCH (08:05)
[2020-08-27] MEDS: FAMOTIDINE 20 MG TAB PO SCH ×2 (08:05→21:09)
[2020-08-27] MEDS: INSULIN ASPART 100 UNITS/ML 3 ML PEN SC SCH ×4 (08:06→21:09)
[2020-08-27] MEDS: TRIAMCINOLONE ACET NASAL SPRAY 10.8ML BTL SCH (08:06)
[2020-08-27] MEDS ORDERED: METOPROLOL SUCC 50MG EXT REL TAB PO SCH (09:00)
[2020-08-27] MEDS: APIXABAN 2.5 MG TAB PO SCH ×2 (10:27→21:09)
[2020-08-27] MEDS: metFORMIN HCL 500 MG TAB PO SCH ×2 (10:28→17:13)
[2020-08-27] MEDS: FUROSEMIDE 40 MG TAB PO SCH (12:17)
--- NOTE | 2020-08-27 13:10 | Hospitalist Progress Note ---
Date of Service August 27, 2020 Assessment & Plan (1) New onset atrial fibrillation: Converted to new onset atrial fibrillation overnight on 08/26, remains in it but rate controlled Asymptomatic Rate controlled on metoprolol succinate 100mg PO BID -start Eliquis today at Cardiology recommendation of 2.5 bid as he remains in Afib and is on triple therapy Consider increasing Eliquis to 5mg bid after off triple therapy in future continue tele monitoring (2) Pleuritic chest pain: Suspected residual pain not from CAD. 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 ESR/CRP quite elevated which is consistent with such Now much improved with colchicine No significant change with famotidine or Maalox suggesting not gastrointestinal No need for CTA for PE as is drastically improved with colchicine alone -continue colchicine x 3 months Follow up with Cardiology (3) NSTEMI (non-ST elevated myocardial infarction): Serial changes of anterior ischemic changes on EKGs. S/p cardiac catheterization with multivessel coronary artery disease and x2 PCI and SONYA to distal RCA-PDA and latemid LAD. Ongoing chest pain therefore taken back to director labor standards for PCI and SONYA to residual disease in circumflex Troponin peaked at 21.9 Continue clopidogrel and colchcine rather than ASA as above Continued isosorbide mononitrate extended release 60 mg p.o. daily Increased metoprolol XL 100 to BID per cardiology recommendations Restart home lasix and continue to hold lisinopril in setting of relative hypotension and worsening renal function -hopeful to restart lisinopril tomorrow if chlorinator stable Praluent cost $15 with insurance (insurance preferred over Repatha) - needs prescribing on discharge. Appreciate cardiology ongoing management. (4) CAD, multiple vessel: As outlined above. (5) Hypertension: Relative hypotension - patient asymptomatic ok to restart Lasix -continue holding lisinopril and amlodipine Continue ISMN currently however if BP continues to be low may need to discontinue this. (6) Hyperlipidemia: Patient is statin intolerant, start on Praluent every 2 weeks as outpatient. Continue [place] 3 fish oil capsules. (7) Type 2 diabetes mellitus: HbA1C 6.5. - Hold Metformin due to risk of renal toxicity. Can restart as outpatient on this possibly - BSG checks with SSI - pharmacy consulted for glycemic control (8) Diastolic CHF: Chronic combined systolic and diastolic CHF/Ischemic cardiomyopathyLVEF here 20-25% with worse anterior, lateral wall motion abnormality - Currently appears euvolemic - confirmed on catheterization. - Monitor daily I&O's and daily weights -restart home po lasix -restart lisinopril hopefully tomorrow if BP tolerates and chlorinator stable (9) Ischemic cardiomyopathy: Metoprolol succinate increased as above Possibly will start on Entresto as outpatient (10) Gout: Continue allopurinol 300mg PO daily colchicine will also help with this (11) CKD (chronic kidney disease) stage 3, GFR 30-59 ml/min: with renal insufficiency in setting of CKD stage 3 chlorinator down to 1.5 today -Avoid nephrotoxins -renally dose meds when appropriate -follow BMP -restart lasix (12) DVT prophylaxis: SCDs Felisa Dispo-continued stay, possibly home tomorrow if remains stable Admission and Anticipated Discharge Date Admission Date: August 22, 2020 Subjective Feeling much better, still " a little shaky." Says the chest pain is now almost completely gone and he can even lie down without an increase in pain as before. No SOB, no nausea. Is eating well. Had a BM this AM, no bleeding from anywhere but has bruising on arms. Tele with rate controlled Afib Discussed his care with Cardiology today, Dr. Ibarra Review of Systems Review of Systems: All systems reviewed & are unremarkable except as noted in HPI & below Physical Exam Constitutional: WD/WN, vitals as above Eyes: + anicteric sclerae Neck: trachea midline, no thyromegaly Respiratory: normal respiratory effort, lungs clear to auscultation Cardiovascular: Rate/Rhythm: regular rate and + irregularly irregular Heart Sounds: no murmur Extremities: + edema (trace pitting edema of legs bilat) Gastrointestinal (Abdomen): normal bowel sounds, soft, nontender, no hepatosplenomegaly Musculoskeletal: Extremities: extremities normal to inspection; no cyanosis and no clubbing Skin: no rashes, warm and dry Neurologic: moves all extremities and awake; no focal motor deficits Psychiatric: A+Ox3, euthymic affect Lymphatic: no lymphedema Results & Data Results & Data ([facility]) Vital Signs (Past 12 Hours) Vital Signs Temp Pulse Pulse Resp BP Pulse Ox 08/27/20 12:59 36.4 C L 72 20 107/62 96 08/27/20 08:10 37.4 C 75 19 114/73 94 08/27/20 07:26 81 08/27/20 03:03 37 C 86 18 99/58 L 96 Laboratory Results 08/27/20 08/27/20 08/27/20 Range/Units 12:22 06:10 06:10 WBC (4.8-10.8) K/uL RBC (4.7-6.1) M/uL Hgb (14.0-18.0) g/dL Hct (42-52) % MCV (80-100) fL MCH (25-34) pg MCHC (32-36) g/dL RDW Std Deviation (36.4-46.3) fL RDW Coeff of Jeff (11.5-14.5) % Plt Count (130-400) K/uL MPV (7.4-10.4) fL Immature Gran % (Auto) % Neut % (Auto) % Lymph % (Auto) % Cache % (Auto) % Eos % (Auto) % Baso % (Auto) % Neut # (Auto) (1.4-6.5) K/uL Lymph # (Auto) (1.2-3.4) K/uL Cache # (Auto) (0.11-0.59) K/uL Eos # (Auto) (0-0.5) K/uL Baso # (Auto) (0-0.2) K/uL Immature Gran # (Auto) (0.00-0.02) K/uL ESR > 90 H (0-14) mm/hr Sodium 135 L (136-145) mmol/L Potassium 4.5 (3.5-5.1) mmol/L Chloride 102 (98-107) mmol/L Carbon Dioxide 28 (21-32) mmol/L Anion Gap 5.0 (3-11) BUN 42 H (7-18) mg/dl Creatinine 1.57 H (0.6-1.4) mg/dl Est Cr Clr Drug Dosing 52.5 ml/min Est GFR ( Amer) 48.9 Est GFR (Non-Af Amer) 42.2 BUN/Creatinine Ratio 26.5 H (10-20) Glucose 148 H (70-99) mg/dl POC Glucose 142 H (70-99) mg/dl Calcium 9.0 (8.5-10.1) mg/dl C-Reactive Protein 16.90 H (0-0.29) mg/dl TSH 1.970 (0.300-4.500) uIu/ml 08/27/20 08/26/20 Range/Units 06:10 21:06 WBC 11.98 H (4.8-10.8) K/uL RBC 4.09 L (4.7-6.1) M/uL Hgb 12.7 L (14.0-18.0) g/dL Hct 38.4 L (42-52) % MCV 93.9 (80-100) fL MCH 31.1 (25-34) pg MCHC 33.1 (32-36) g/dL RDW Std Deviation 49.3 H (36.4-46.3) fL RDW Coeff of Jeff 14.6 H (11.5-14.5) % Plt Count 217 (130-400) K/uL MPV 10.6 H (7.4-10.4) fL Immature Gran % (Auto) 0.2 % Neut % (Auto) 77.8 % Lymph % (Auto) 11.8 % Cache % (Auto) 6.0 % Eos % (Auto) 4.0 % Baso % (Auto) 0.2 % Neut # (Auto) 9.33 H (1.4-6.5) K/uL Lymph # (Auto) 1.41 (1.2-3.4) K/uL Cache # (Auto) 0.72 H (0.11-0.59) K/uL Eos # (Auto) 0.48 (0-0.5) K/uL Baso # (Auto) 0.02 (0-0.2) K/uL Immature Gran # (Auto) 0.02 (0.00-0.02) K/uL ESR (0-14) mm/hr Sodium (136-145) mmol/L Potassium (3.5-5.1) mmol/L Chloride (98-107) mmol/L Carbon Dioxide (21-32) mmol/L Anion Gap (3-11) BUN (7-18) mg/dl Creatinine (0.6-1.4) mg/dl Est Cr Clr Drug Dosing ml/min Est GFR ( Amer) Est GFR (Non-Af Amer) BUN/Creatinine Ratio (10-20) Glucose (70-99) mg/dl POC Glucose 155 H (70-99) mg/dl Calcium (8.5-10.1) mg/dl C-Reactive Protein (0-0.29) mg/dl TSH (0.300-4.500) uIu/ml PG Care Time/CCT Total # of Minutes Spent Total Time Spent with Patient: Total time spent is greater than 50% in coordination of care (as documented) at patient's floor/unit and/or counseling patient: Coding Level of Care Code 03714 Subseq Hosp Care Lvl 3 Diagnoses New onset atrial fibrillation I48.91 Pleuritic chest pain R07.81 NSTEMI (non-ST elevated myocardial infarction) I21.4 CAD, multiple vessel I25.10 Hypertension I10 Hyperlipidemia E78.5 Type 2 diabetes mellitus E11.9 Diastolic CHF I50.30 Ischemic cardiomyopathy I25.5 Gout M10.9 CKD (chronic kidney disease) stage 3, GFR 30-59 ml/min N18.30 DVT prophylaxis Z29.9
--- NOTE | 2020-08-27 13:23 | Electrocardiogram Report ---
Test Reason : Blood Pressure : / mmHG Vent. Rate : 089 BPM Atrial Rate : 100 BPM P-R Int : 000 ms QRS Dur : 106 ms QT Int : 376 ms P-R-T Axes : 000 -73 057 degrees QTc Int : 457 ms Atrial fibrillation Left axis deviation Low voltage QRS Inferior infarct (cited on or before 04-AUG-2007) Anterolateral infarct (cited on or before 04-AUG-2007) Abnormal ECG When compared with ECG of 25-AUG-2020 08:00, Atrial fibrillation has replaced Sinus rhythm Serial changes of Anterior infarct Present Confirmed by Alex Ibarra ([id number]) on 08/27/2020 1:22:45 PM Referred By: REFERRED SELF Confirmed By:Alex Ibarra
[2020-08-27] MEDS: COLESTIPOL HCL 1 GM TAB PO SCH (20:14)
[2020-08-28] MEDS: metFORMIN HCL 500 MG TAB PO SCH (08:04)
[2020-08-28] MEDS: APIXABAN 2.5 MG TAB PO SCH ×2 (08:04→20:02)
[2020-08-28] MEDS: METOPROLOL SUCC 50MG EXT REL TAB PO SCH ×2 (08:05→20:03)
[2020-08-28] MEDS: allopurinoL 300 MG TAB PO SCH (08:05)
[2020-08-28] MEDS: PSYLLIUM 58.6% POWDER PACKET PO SCH (08:05)
[2020-08-28] MEDS: FAMOTIDINE 20 MG TAB PO SCH ×2 (08:06→20:02)
[2020-08-28] MEDS: CEROVITE ADV FORMULA TAB PO SCH (08:06)
[2020-08-28] MEDS: COLCHICINE 0.6 MG TAB PO SCH ×2 (08:06→20:02)
[2020-08-28] MEDS: CLOPIDOGREL BISULFATE 75 MG TAB PO SCH (08:06)
[2020-08-28] MEDS: OMEGA-3 (PURIFIED FISH OIL) 1 GM CAP PO SCH (08:07)
[2020-08-28] MEDS: ISOSORBIDE MONO EXTENDED REL 60 MG TABCR PO SCH (08:07)
[2020-08-28] MEDS: MULTIVITAMIN TAB PO SCH (08:07)
[2020-08-28] MEDS: FUROSEMIDE 40 MG TAB PO SCH (08:07)
[2020-08-28] MEDS: TRIAMCINOLONE ACET NASAL SPRAY 10.8ML BTL SCH (08:08)
[2020-08-28] MEDS: INSULIN ASPART 100 UNITS/ML 3 ML PEN SC SCH ×4 (08:16→20:05)
[2020-08-28 08:57] LABS: Basophils # (auto) 0.03 K/uL (0-0.2); Basophils % (auto) 0.3 %; Eosinophils # (auto) 0.56 K/uL (0-0.5); Eosinophils % (auto) 5.6 %; Hematocrit (blood only) 38.2 % (42-52); Hemoglobin 12.9 g/dL (14.0-18.0); Immature Granulocytes # (auto) 0.02 K/uL (0.00-0.02); Immature Granulocytes % (auto) 0.2 %; Lymphocytes # (auto) 1.42 K/uL (1.2-3.4); Lymphocytes % (auto) 14.2 %; Mean Corpuscular Hemoglobin 31.6 pg (25-34); Mean Corpuscular Hgb Conc 33.8 g/dL (32-36); Mean Corpuscular Volume 93.6 fL (80-100); Mean Platelet Volume 10.7 fL (7.4-10.4); Monocytes # (auto) 0.69 K/uL (0.11-0.59); Monocytes % (auto) 6.9 %; Neutrophils # (auto) 7.31 K/uL (1.4-6.5); Neutrophils % (auto) 72.8 %; Platelet Count 230 K/uL (130-400); RDW Coefficient of Variation 14.6 % (11.5-14.5); RDW Standard Deviation 49.6 fL (36.4-46.3); Red Blood Count 4.08 M/uL (4.7-6.1); White Blood Count 10.03 K/uL (4.8-10.8)
[2020-08-28 09:17] LABS: Albumin Level 2.9 gm/dl (3.4-5.0); BUN Creatinine Ratio 23.9 (10-20); C Reactive Protein 12.6 mg/dl (0-0.29); Calcium 9.5 mg/dl (8.5-10.1); Creatinine Clr Calc Pharmacy 53.2 ml/min; Est GFR (African American) 49.7; Est GFR (Non-African American) 42.8; Magnesium 2.3 mg/dl (1.8-2.4); Potassium 4.1 mmol/L (3.5-5.1)
[2020-08-28 09:28] LABS: Albumin Globulin Ratio 0.7 (0.9-2); Bilirubin,Total 0.6 mg/dl (0.2-1); Globulin 4.4 gm/dl (2.5-4.0); Thyroid Stimulating Hormone 2.59 uIu/ml (0.300-4.500); Total Protein 7.3 gm/dl (6.4-8.2)
--- NOTE | 2020-08-28 11:52 | Hospitalist Progress Note ---
Date of Service August 28, 2020 Assessment & Plan (1) New onset atrial fibrillation: Converted to new onset atrial fibrillation overnight on 08/26, remains in it but rate controlled Asymptomatic Rate controlled on metoprolol succinate 100mg PO BID Started on Eliquis at Cardiology recommendation of 2.5 bid as he remains in Afib and is on triple therapy because of his recent SONYA Consider increasing Eliquis to 5mg bid after off triple therapy in future continue tele monitoring (2) Pleuritic chest pain: Continue to have residual chest pain even after stents in place not thought to be due to 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 ESR/CRP quite elevated which is consistent with such Now chest pain is completely resolved since starting colchicine No need for CTA for PE as is drastically improved with colchicine alone -continue colchicine x 3 months -Continue to follow ESR and CRP-CRP is starting to trend downward but ESR remains greater than 90 Follow up with Cardiology (3) Acute on chronic combined systolic (congestive) and diastolic (congestive) heart failure: Ischemic cardiomyopathyLVEF here 20-25% with worse anterior, lateral wall motion abnormality Was noted to have elevated LVEDP of 22 on cardiac catheterization Was given IV Lasix and now on p.o. Lasix 40 mg once daily Continues with dyspnea on exertion and peripheral edema, has developed crackles on examination today and weight is up slightly Increase p.o. Lasix to 80 mg p.o. daily for now - Monitor daily I&O's and daily weights, low-sodium diet -Continue to hold SOPHIE inhibitor for now, consideration to be made for Entresto in the future Follow BMP in the morning Follows with CHF clinic -Continue Toprol-XL (4) NSTEMI (non-ST elevated myocardial infarction): Serial changes of anterior ischemic changes on EKGs. S/p cardiac catheterization with multivessel coronary artery disease and x2 PCI and SONYA to distal RCA-PDA and latemid LAD. 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 daily Increased metoprolol XL 100 to BID per cardiology recommendations Continue p.o. lasix and hold lisinopril in setting of relative hypotension and worsened renal function Statin intolerant-Praluent cost $15 with insurance (insurance preferred over Repatha) - needs prescribing on discharge. Appreciate cardiology ongoing management. (5) CAD, multiple vessel: As outlined above. (6) Hypertension: Blood pressures were slightly low, now improved Continue Lasix -continue holding lisinopril and amlodipine from home Metoprolol was increased, continue isosorbide (7) Hyperlipidemia: Patient is statin intolerant, start on Praluent every 2 weeks as outpatient. Continue [place] 3 fish oil capsules. (8) Type 2 diabetes mellitus: HbA1C 6.5. - Hold Metformin due to risk of renal toxicity. 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 No further chest pain at all. He is not feeling ready to go home yet and is scared of going home on his own too soon. He had a bad experience earlier this year of going home too soon and coming back with hypokalemia and bradycardia and renal failure. He also reports that after his multiple hospitalizations this year he has been feeling depressed on some days. He denies any thoughts of suicide. He is receptive to treatment for depression if his mood does not improve in the near future and says he will follow-up with his PCP regarding this. Telemetry with atrial fibrillation with rates in the 60s to low 100s. Review of Systems Review of Systems: All systems reviewed & are unremarkable except as noted in HPI & below Appetite is good, no abdominal pain. He is making urine. Physical Exam Constitutional: WD/WN, vitals as above Eyes: + anicteric sclerae ENMT: Ears: no hearing impairment Neck: trachea midline, no thyromegaly Respiratory: normal respiratory effort Auscultation: + crackles (Bibasilar); no rhonchi and no wheezes Cardiovascular: Rate/Rhythm: regular rate and + irregularly irregular Heart Sounds: no murmur Extremities: + edema (trace pitting edema of legs bilat) Gastrointestinal (Abdomen): normal bowel sounds, soft, nontender, no hepatosplenomegaly Musculoskeletal: Extremities: extremities normal to inspection; no cyanosis and no clubbing Skin: no rashes, warm and dry Neurologic: moves all extremities and awake; no focal motor deficits Psychiatric: Orientation: alert and oriented x 3 Eye Contact: good eye contact Speech: normal rate/rhythm/volume of speech Affect: + depressed affect and + tearful affect Mood: + depressed mood Suicidal Thoughts: denies suicidal thoughts Insight: good insight Judgement: good judgement Lymphatic: no lymphedema Results & Data Results & Data ([facility]) Vital Signs (Past 12 Hours) Vital Signs Temp Pulse Pulse Resp BP Pulse Ox 08/28/20 07:25 83 08/28/20 03:28 36.5 C 85 18 114/74 95 Laboratory Results 08/28/20 08/28/20 08/28/20 Range/Units 19:58 16:47 11:47 WBC (4.8-10.8) K/uL RBC (4.7-6.1) M/uL Hgb (14.0-18.0) g/dL Hct (42-52) % MCV (80-100) fL MCH (25-34) pg MCHC (32-36) g/dL RDW Std Deviation (36.4-46.3) fL RDW Coeff of Jeff (11.5-14.5) % Plt Count (130-400) K/uL MPV (7.4-10.4) fL Immature Gran % (Auto) % Neut % (Auto) % Lymph % (Auto) % [place] % (Auto) % Eos % (Auto) % Baso % (Auto) % Neut # (Auto) (1.4-6.5) K/uL Lymph # (Auto) (1.2-3.4) K/uL [place] # (Auto) (0.11-0.59) K/uL Eos # (Auto) (0-0.5) K/uL Baso # (Auto) (0-0.2) K/uL Immature Gran # (Auto) (0.00-0.02) K/uL ESR (0-14) mm/hr Sodium (136-145) mmol/L Potassium (3.5-5.1) mmol/L Chloride (98-107) mmol/L Carbon Dioxide (21-32) mmol/L Anion Gap (3-11) BUN (7-18) mg/dl Creatinine (0.6-1.4) mg/dl Est Cr Clr Drug Dosing ml/min Est GFR ( Amer) Est GFR (Non-Af Amer) BUN/Creatinine Ratio (10-20) Glucose (70-99) mg/dl POC Glucose 158 H 129 H 134 H (70-99) mg/dl Calcium (8.5-10.1) mg/dl Magnesium (1.8-2.4) mg/dl Total Bilirubin (0.2-1) mg/dl AST (15-37) U/L ALT (12-78) U/L Alkaline Phosphatase (45-117) U/L C-Reactive Protein (0-0.29) mg/dl Total Protein (6.4-8.2) gm/dl Albumin (3.4-5.0) gm/dl Globulin (2.5-4.0) gm/dl Albumin/Globulin Ratio (0.9-2) TSH (0.300-4.500) uIu/ml 08/28/20 08/28/20 08/28/20 Range/Units 08:47 08:47 08:47 WBC 10.03 (4.8-10.8) K/uL RBC 4.08 L (4.7-6.1) M/uL Hgb 12.9 L (14.0-18.0) g/dL Hct 38.2 L (42-52) % MCV 93.6 (80-100) fL MCH 31.6 (25-34) pg MCHC 33.8 (32-36) g/dL RDW Std Deviation 49.6 H (36.4-46.3) fL RDW Coeff of Jeff 14.6 H (11.5-14.5) % Plt Count 230 (130-400) K/uL MPV 10.7 H (7.4-10.4) fL Immature Gran % (Auto) 0.2 % Neut % (Auto) 72.8 % Lymph % (Auto) 14.2 % [place] % (Auto) 6.9 % Eos % (Auto) 5.6 % Baso % (Auto) 0.3 % Neut # (Auto) 7.31 H (1.4-6.5) K/uL Lymph # (Auto) 1.42 (1.2-3.4) K/uL [place] # (Auto) 0.69 H (0.11-0.59) K/uL Eos # (Auto) 0.56 H (0-0.5) K/uL Baso # (Auto) 0.03 (0-0.2) K/uL Immature Gran # (Auto) 0.02 (0.00-0.02) K/uL ESR > 90 H (0-14) mm/hr Sodium 137 (136-145) mmol/L Potassium 4.1 (3.5-5.1) mmol/L Chloride 100 (98-107) mmol/L Carbon Dioxide 25 (21-32) mmol/L Anion Gap 11.0 (3-11) BUN 37 H (7-18) mg/dl Creatinine 1.55 H (0.6-1.4) mg/dl Est Cr Clr Drug Dosing 53.2 ml/min Est GFR ( Amer) 49.7 Est GFR (Non-Af Amer) 42.8 BUN/Creatinine Ratio 23.9 H (10-20) Glucose 195 H (70-99) mg/dl POC Glucose (70-99) mg/dl Calcium 9.5 (8.5-10.1) mg/dl Magnesium 2.3 (1.8-2.4) mg/dl Total Bilirubin 0.6 (0.2-1) mg/dl AST 28 (15-37) U/L ALT 31 (12-78) U/L Alkaline Phosphatase 126 H (45-117) U/L C-Reactive Protein 12.60 H (0-0.29) mg/dl Total Protein 7.3 (6.4-8.2) gm/dl Albumin 2.9 L (3.4-5.0) gm/dl Globulin 4.4 H (2.5-4.0) gm/dl Albumin/Globulin Ratio 0.7 L (0.9-2) TSH 2.590 (0.300-4.500) uIu/ml 08/28/20 08/27/20 Range/Units 07:40 20:14 WBC (4.8-10.8) K/uL RBC (4.7-6.1) M/uL Hgb (14.0-18.0) g/dL Hct (42-52) % MCV (80-100) fL MCH (25-34) pg MCHC (32-36) g/dL RDW Std Deviation (36.4-46.3) fL RDW Coeff of Jeff (11.5-14.5) % Plt Count (130-400) K/uL MPV (7.4-10.4) fL Immature Gran % (Auto) % Neut % (Auto) % Lymph % (Auto) % [place] % (Auto) % Eos % (Auto) % Baso % (Auto) % Neut # (Auto) (1.4-6.5) K/uL Lymph # (Auto) (1.2-3.4) K/uL [place] # (Auto) (0.11-0.59) K/uL Eos # (Auto) (0-0.5) K/uL Baso # (Auto) (0-0.2) K/uL Immature Gran # (Auto) (0.00-0.02) K/uL ESR (0-14) mm/hr Sodium (136-145) mmol/L Potassium (3.5-5.1) mmol/L Chloride (98-107) mmol/L Carbon Dioxide (21-32) mmol/L Anion Gap (3-11) BUN (7-18) mg/dl Creatinine (0.6-1.4) mg/dl Est Cr Clr Drug Dosing ml/min Est GFR ( Amer) Est GFR (Non-Af Amer) BUN/Creatinine Ratio (10-20) Glucose (70-99) mg/dl POC Glucose 139 H 158 H (70-99) mg/dl Calcium (8.5-10.1) mg/dl Magnesium (1.8-2.4) mg/dl Total Bilirubin (0.2-1) mg/dl AST (15-37) U/L ALT (12-78) U/L Alkaline Phosphatase (45-117) U/L C-Reactive Protein (0-0.29) mg/dl Total Protein (6.4-8.2) gm/dl Albumin (3.4-5.0) gm/dl Globulin (2.5-4.0) gm/dl Albumin/Globulin Ratio (0.9-2) TSH (0.300-4.500) uIu/ml PG Care Time/CCT Total # of Minutes Spent Total Time Spent with Patient: Total time spent is greater than 50% in coordination of care (as documented) at patient's floor/unit and/or counseling patient: Coding Level of Care Code 71302 Subseq Hosp Care Lvl 3 Diagnoses New onset atrial fibrillation I48.91 Pleuritic chest pain R07.81 Acute on chronic combined systolic (congestive) and diastolic (congestive) heart failure I50.43 NSTEMI (non-ST elevated myocardial infarction) I21.4 CAD, multiple vessel I25.10 Hypertension I10 Hyperlipidemia E78.5 Type 2 diabetes mellitus E11.9 Ischemic cardiomyopathy I25.5 Gout M10.9 CKD (chronic kidney disease) stage 3, GFR 30-59 ml/min N18.30 DVT prophylaxis Z29.9
[2020-08-28] MEDS ORDERED: FUROSEMIDE 40 MG TAB PO ONE (11:53)
[2020-08-28] MEDS: COLESTIPOL HCL 1 GM TAB PO SCH (19:32)
[2020-08-29 07:04] LABS: BUN Creatinine Ratio 23.8 (10-20); Calcium 9.1 mg/dl (8.5-10.1); Creatinine Clr Calc Pharmacy 50.6 ml/min; Est GFR (African American) 46.7; Est GFR (Non-African American) 40.3; Potassium 3.9 mmol/L (3.5-5.1)
[2020-08-29] MEDS: PSYLLIUM 58.6% POWDER PACKET PO SCH (08:20)
[2020-08-29] MEDS: CLOPIDOGREL BISULFATE 75 MG TAB PO SCH (08:20)
[2020-08-29] MEDS: METOPROLOL SUCC 50MG EXT REL TAB PO SCH ×2 (08:20→22:32)
[2020-08-29] MEDS: allopurinoL 300 MG TAB PO SCH (08:21)
[2020-08-29] MEDS: OMEGA-3 (PURIFIED FISH OIL) 1 GM CAP PO SCH (08:21)
[2020-08-29] MEDS: FUROSEMIDE 40 MG TAB PO SCH (08:21)
[2020-08-29] MEDS: APIXABAN 2.5 MG TAB PO SCH ×2 (08:21→22:32)
[2020-08-29] MEDS: FAMOTIDINE 20 MG TAB PO SCH ×2 (08:21→22:32)
[2020-08-29] MEDS: COLCHICINE 0.6 MG TAB PO SCH ×2 (08:21→22:32)
[2020-08-29] MEDS: ISOSORBIDE MONO EXTENDED REL 60 MG TABCR PO SCH (08:22)
[2020-08-29] MEDS: MULTIVITAMIN TAB PO SCH (08:22)
[2020-08-29] MEDS: CEROVITE ADV FORMULA TAB PO SCH (08:22)
[2020-08-29] MEDS: TRIAMCINOLONE ACET NASAL SPRAY 10.8ML BTL SCH (08:23)
[2020-08-29] MEDS: INSULIN ASPART 100 UNITS/ML 3 ML PEN SC SCH ×4 (08:27→21:33)
[2020-08-29] MEDS ORDERED: FUROSEMIDE 80 MG TAB PO SCH (09:00)
--- NOTE | 2020-08-29 17:33 | Hospitalist Progress Note ---
Date of Service August 29, 2020 Assessment & Plan (1) New onset atrial fibrillation: Converted to new onset atrial fibrillation overnight on 08/26, remains in it but rate controlled Asymptomatic at rest, but continues to be quite dyspneic with exertion--> question if just not tolerating Afib? No room to go up on beta ruby and adding diltiazem not ideal with reduced EF -continue metoprolol succinate 100mg PO BID Started on Eliquis at Cardiology recommendation of 2.5 bid as he remains in Afib and is on triple therapy because of his recent SONYA Consider increasing Eliquis to 5mg bid after off triple therapy in future continue tele monitoring Appreciate any further Cardiology recommendations (2) Pleuritic chest pain: Continued to have residual chest pain even after stents in place Cardiology Dr. 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 ESR/CRP quite elevated which is consistent with such Now chest pain is completely resolved since starting colchicine 08/29 noted exertional chest tightness while walking halls that went away with rest -continue colchicine x 3 months -Continue to follow ESR and CRP-CRP is starting to trend downward but ESR remains greater than 90 -may need to increase isosorbide as antianginal Follow up with Cardiology (3) Acute on chronic combined systolic (congestive) and diastolic (congestive) heart failure: Ischemic cardiomyopathyLVEF here 20-25% with worse anterior, lateral wall motion abnormality Was noted to have elevated LVEDP of 22 on cardiac catheterization Was given IV Lasix and now on p.o. Lasix 40 mg once daily, received 80mg po on 08/28 Continues with dyspnea on exertion but crackles improved, edema improved, BUN/Tripe Cooker rising -continue lasix 40mg po daily - Monitor daily I&O's and daily weights, low-sodium diet -Continue to hold SOPHIE inhibitor for now, consideration to be made for Entresto in the future Follow BMP in the morning Follows with CHF clinic -Continue Toprol-XL (4) NSTEMI (non-ST elevated myocardial infarction): Serial changes of anterior ischemic changes on EKGs. S/p cardiac catheterization with multivessel coronary artery disease and x2 PCI and SONYA to distal RCA-PDA and latemid LAD. 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 daily Increased metoprolol XL 100 to BID per cardiology recommendations Continue p.o. lasix and hold lisinopril in setting of relative hypotension and worsened renal function Statin intolerant-Praluent cost $15 with insurance (insurance preferred over Repatha) - needs prescribing on discharge. Appreciate cardiology ongoing management. (5) CAD, multiple vessel: As outlined above. (6) Hypertension: Blood pressures were slightly low, now improved Continue Lasix -continue holding lisinopril and amlodipine from home Metoprolol was increased, continue isosorbide (7) Hyperlipidemia: Patient is statin intolerant, start on Praluent every 2 weeks as outpatient. Continue [place] 3 fish oil capsules. (8) Type 2 diabetes mellitus: HbA1C 6.5. - Hold Metformin due to risk of renal toxicity. 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.6 -Avoid nephrotoxins -renally dose meds when appropriate -follow BMP Continue Lasix (12) DVT prophylaxis: SCDs Felisa Dispo-continued stay,see if Cardiology wants to make any changes in management to improve dyspnea, exertional chest pain PT/OT consults ordered, recommend home with home health, however pt prefers short term rehab now--> Case Management consult placed to look into short term rehab stay Will need Cardiac rehab after discharge as well Admission and Anticipated Discharge Date Admission Date: August 22, 2020 Subjective Patient still feeling short of breath with walking in the halls today with physical therapy and had to stop frequently to catch his breath. He also reports some chest tightness that came on with walking in the halls that went away with rest. He was able to go up and down 1 flight of stairs with physical therapy. He still does not feel like he is quite ready to go home. He is actually very concerned about being able to even walk from the parking lot into the pharmacy to get his medications upon discharge. He is interested in perhaps going to a short-term rehab stay. Discussed his care with Cardiology Tele with atrial fibrillation, PVCs, rates in the 60s to 80s with couplets Review of Systems Review of Systems: All systems reviewed & are unremarkable except as noted in HPI & below Physical Exam Constitutional: WD/WN, vitals as above Eyes: + anicteric sclerae ENMT: Ears: + hearing impairment Respiratory: normal respiratory effort, lungs clear to auscultation Cardiovascular: Rate/Rhythm: regular rate and + irregularly irregular Heart Sounds: no murmur Extremities: + edema (trace pitting edema of legs bilat) Gastrointestinal (Abdomen): normal bowel sounds, soft, nontender, no hepatosplenomegaly Musculoskeletal: Extremities: extremities normal to inspection; no cyanosis a nd no clubbing Skin: no rashes, warm and dry Neurologic: moves all extremities and awake; no focal motor deficits Psychiatric: A+Ox3, euthymic affect Eye Contact: good eye contact Speech: normal rate/rhythm/volume of speech Lymphatic: no lymphedema Results & Data Results & Data ([facility]) Vital Signs (Past 12 Hours) Vital Signs Temp Pulse Pulse Pulse Resp BP BP 08/29/20 16:22 37.0 C 71 18 110/73 08/29/20 16:00 63 08/29/20 11:23 36.6 C 71 16 110/73 08/29/20 07:22 36.9 C 72 16 104/71 08/29/20 07:13 78 Pulse Ox 08/29/20 16:22 95 08/29/20 16:00 08/29/20 11:23 93 08/29/20 07:22 95 08/29/20 07:13 Laboratory Results 08/29/20 08/29/20 08/29/20 Range/Units 16:35 11:35 07:31 Sodium (136-145) mmol/L Potassium (3.5-5.1) mmol/L Chloride (98-107) mmol/L Carbon Dioxide (21-32) mmol/L Anion Gap (3-11) BUN (7-18) mg/dl Creatinine (0.6-1.4) mg/dl Est Cr Clr Drug Dosing ml/min Est GFR ( Amer) Est GFR (Non-Af Amer) BUN/Creatinine Ratio (10-20) Glucose (70-99) mg/dl POC Glucose 137 H 144 H 157 H (70-99) mg/dl Calcium (8.5-10.1) mg/dl 08/29/20 08/28/20 Range/Units 05:54 19:58 Sodium 135 L (136-145) mmol/L Potassium 3.9 (3.5-5.1) mmol/L Chloride 100 (98-107) mmol/L Carbon Dioxide 30 (21-32) mmol/L Anion Gap 5.0 (3-11) BUN 39 H (7-18) mg/dl Creatinine 1.63 H (0.6-1.4) mg/dl Est Cr Clr Drug Dosing 50.6 ml/min Est GFR ( Amer) 46.7 Est GFR (Non-Af Amer) 40.3 BUN/Creatinine Ratio 23.8 H (10-20) Glucose 128 H (70-99) mg/dl POC Glucose 158 H (70-99) mg/dl Calcium 9.1 (8.5-10.1) mg/dl PG Care Time/CCT Total # of Minutes Spent Total Time Spent with Patient: Total time spent is greater than 50% in coordination of care (as documented) at patient's floor/unit and/or counseling patient: Coding Level of Care Code 64519 Subseq Hosp Care Lvl 3 Diagnoses New onset atrial fibrillation I48.91 Pleuritic chest pain R07.81 Acute on chronic combined systolic (congestive) and diastolic (congestive) heart failure I50.43 NSTEMI (non-ST elevated myocardial infarction) I21.4 CAD, multiple vessel I25.10 Hypertension I10 Hyperlipidemia E78.5 Type 2 diabetes mellitus E11.9 Ischemic cardiomyopathy I25.5 Gout M10.9 CKD (chronic kidney disease) stage 3, GFR 30-59 ml/min N18.30 DVT prophylaxis Z29.9
[2020-08-29] MEDS ORDERED: FUROSEMIDE 40 MG in SYRINGE 0 ML IV ONE (18:45)
[2020-08-29] MEDS: COLESTIPOL HCL 1 GM TAB PO SCH (21:33)
--- NOTE | 2020-08-29 22:12 | Cardiology Progress Note ---
Date of Service August 29, 2020 Assessment & Plan (1) NSTEMI (non-ST elevated myocardial infarction): 2. Multivessel coronary disease Post PCI to distal RCA, latemid LAD, distal circumflex 3. Ischemic cardiomyopathyLVEF 20-25% 4. Acute on chronic diastolic heart failure 5. Persistent atrial fibrillation 6. 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 Acute on chronic renal insufficiency 8. Type 2 diabetes 9. Hypertension 10. Dyslipidemiastatin intolerance Looks well today. No recurrent chest pain. No O2 requirement but mild dyspnea/chest tightness with walking in the halls Remains in atrial fibrillation but well rate controlled Well-perfused with congestion on exam, weight up 3 kg since admission Will give additional 40 of IV Lasix today. Likely resume maintenance Lasix tomorrow Repeat limited echo in a.m. Continue dual therapy with clopidogrel, Eliquis. If renal function stable tomorrow would switch Eliquis back to 5 mg twice daily If renal function stable would discontinue Imdur and resume SOPHIE inhibitor. Start lisinopril 20 mg and can titrate back up as an outpatient Continue current Toprol-XL 100 mg Continue colchicine 0.6 mg twice daily for 1 month Plan to start Praluent as an outpatient From a cardiac standpoint possible discharge to home tomorrow. Admission and Anticipated Discharge Date Admission Date: August 22, 2020 Subjective Denies chest pain. Reports some mild tightness with walking the halls. Could walk about 25 feet before developed shortness of breath. Has not required oxyge n. Does report that lower extremities more swollen than with admission. No palpitations. Telemetry reviewedremains in atrial fibrillation, rate controlled with heart rates primarily in the 80s Review of Systems Review of Systems: All systems reviewed & are unremarkable except as noted in HPI & below Physical Exam Physical Exam: General: Appears comfortable, sitting up in chair HEENT: Sclerae anicteric Lungs: Few crackles at bases, right greater than left Cardiac: Irregular irregular 2/6 holosystolic murmur. JVP approximately 8-9 Abdomen: Soft, nontender Extremities: Warm, well perfused, trace to 1+ edema to the shins. Right radial artery access site with no ecchymosis, hematoma. Distal pulse and sensation intact. Neuro: Nonfocal Psych: Alert orient x3, normal affect and mood Results & Data ([facility]) Vital Signs (Past 12 Hours) Vital Signs Temp Pulse Pulse Pulse Resp BP BP 08/29/20 19:44 97.5 F L 66 18 137/95 08/29/20 16:22 98.6 F 71 18 110/73 08/29/20 16:00 63 08/29/20 11:23 97.9 F 71 16 110/73 Pulse Ox 08/29/20 19:44 95 08/29/20 16:22 95 08/29/20 16:00 08/29/20 11:23 93 PG Care Time/CCT Total # of Minutes Spent Total Time Spent with Patient: Total time spent is greater than 50% in coordination of care (as documented) at patient's floor/unit and/or counseling patient: Coding Level of Care Code 93750 Subseq Hosp Care Lvl 3 Diagnoses NSTEMI (non-ST elevated myocardial infarction) I21.4
[2020-08-30 07:58] LABS: BUN Creatinine Ratio 24.3 (10-20); Calcium 9.2 mg/dl (8.5-10.1); Creatinine Clr Calc Pharmacy 53.1 ml/min; Est GFR (African American) 50.4; Est GFR (Non-African American) 43.5; Potassium 3.7 mmol/L (3.5-5.1)
[2020-08-30] MEDS: allopurinoL 300 MG TAB PO SCH (08:11)
[2020-08-30] MEDS: FUROSEMIDE 40 MG TAB PO SCH (08:11)
[2020-08-30] MEDS: OMEGA-3 (PURIFIED FISH OIL) 1 GM CAP PO SCH (08:11)
[2020-08-30] MEDS: CLOPIDOGREL BISULFATE 75 MG TAB PO SCH (08:12)
[2020-08-30] MEDS: FAMOTIDINE 20 MG TAB PO SCH ×2 (08:12→21:09)
[2020-08-30] MEDS: MULTIVITAMIN TAB PO SCH (08:12)
[2020-08-30] MEDS: APIXABAN 2.5 MG TAB PO SCH (08:13)
[2020-08-30] MEDS: COLCHICINE 0.6 MG TAB PO SCH ×2 (08:13→21:08)
[2020-08-30] MEDS: PSYLLIUM 58.6% POWDER PACKET PO SCH (08:14)
[2020-08-30] MEDS: ISOSORBIDE MONO EXTENDED REL 60 MG TABCR PO SCH (08:14)
[2020-08-30] MEDS: METOPROLOL SUCC 50MG EXT REL TAB PO SCH ×2 (08:15→21:10)
[2020-08-30] MEDS: TRIAMCINOLONE ACET NASAL SPRAY 10.8ML BTL SCH (08:16)
[2020-08-30] MEDS: CEROVITE ADV FORMULA TAB PO SCH (08:16)
[2020-08-30] MEDS: INSULIN ASPART 100 UNITS/ML 3 ML PEN SC SCH ×4 (08:18→21:09)
--- NOTE | 2020-08-30 08:51 | XCELERA ---
[id number]
[2020-08-30] MEDS ORDERED: APIXABAN 5 MG TABLET PO SCH ×2 (09:00→21:00)
[2020-08-30] MEDS ORDERED: APIXABAN 2.5 MG TAB PO ONE (09:00)
--- NOTE | 2020-08-30 10:53 | Hospitalist Progress Note ---
Date of Service August 30, 2020 Assessment & Plan (1) New onset atrial fibrillation: Converted to new onset atrial fibrillation overnight on 08/26, remains in it but rate controlled Asymptomatic at rest, but continues to be quite dyspneic with exertion secondary to CHF. -continue metoprolol succinate 100mg PO BID which is an increased dose -Started on Eliquis and increased to 5mg po bid today as renal function stable continue tele monitoring Appreciate Cardiology recommendations (2) Pleuritic chest pain: Continued to have residual chest pain even after stents in place Cardiology Dr. 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 ESR/CRP quite elevated which is consistent with such Now chest pain is completely resolved since starting colchicine 08/29 noted exertional chest tightness while walking halls that went away with rest. Ths is also now resolved with IV diuresis -continue colchicine x 1 month as per Cardio -Continue to follow ESR and CRP-CRP is starting to trend downward but ESR remains greater than 90 -Cardio recs to dc isosorbide Follow up with Cardiology (3) Acute on chronic combined systolic (congestive) and diastolic (congestive) heart failure: Ischemic cardiomyopathyLVEF here 20-25% with worse anterior, lateral wall motion abnormality Repeat limited ECHO 08/30 same Was noted to have elevated LVEDP of 22 on cardiac catheterization Was given IV Lasix and now on p.o. Lasix 40 mg once daily, received 80mg po on 08/28 Continues with dyspnea on exertion but crackles improved, edema improved, BUN/Grinder Gear stable/improved today -give another lasix 40mg IV x 1 -continue lasix but increase tomorrow to 80mg po daily - Monitor daily I&O's and daily weights, low-sodium diet -restart lisinopril 20mg daily and dc isosorbide as per Cardio -consideration to be made for Entresto in the future Follow BMP in the morning Follows with CHF clinic -Continue Toprol-XL 100 bid -will need repeat ECHO in 3 months and consideration for AICD if EF remains poor (4) NSTEMI (non-ST elevated myocardial infarction): Serial changes of anterior ischemic changes on EKGs. S/p cardiac catheterization with multivessel coronary artery disease and x2 PCI and SONYA to distal RCA-PDA and latemid LAD. 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 Appreciate cardiology ongoing management. (5) CAD, multiple vessel: As outlined above. (6) Hypertension: Blood pressures stable Continue Lasix -restart lisinopril -hold/dc amlodipine -Metoprolol was increased -discontinue isosorbide (7) Hyperlipidemia: Patient is statin intolerant, start on Praluent every 2 weeks as outpatient. Continue Thorp 3 fish oil capsules. (8) Type 2 diabetes mellitus: HbA1C 6.5. - Hold Metformin due to risk of renal toxicity. 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 at 1.5 -Avoid nephrotoxins -renally dose meds when appropriate -follow BMP Continue Lasix (12) Major depressive disorder: feels depressed o nmost days, thoughts of being better off , no plans for suicide post-SD start ZOloft 25mg po qAM and encouraged to seek counseling after discharge (13) DVT prophylaxis: Bridget Roberto Dispo-continued stay,diuresis PT/OT consults ordered, recommend home, does not qualify for rehab as he requested Will need Cardiac rehab after discharge as well Admission and Anticipated Discharge Date Admission Date: August 22, 2020 Subjective Pt reports he took two laps around the halls this AM and now feels "exhausted." Still with LOREDO, but no further chest tightness with walking. Does not feel he can go home. Also continues to admit to feelings of hopelessness and wonders "what's the point" in reference to living at times. Denies SI. Feels depressed most days. Is willing to see therapist as outpt and start SSRI Tele with Afib rates 60s-90s Review of Systems Review of Systems: All systems reviewed & are unremarkable except as noted in HPI & below Physical Exam Constitutional: WD/WN, vitals as above Eyes: + anicteric sclerae ENMT: Ears: + hearing impairment Neck: trachea midline, no thyromegaly Respiratory: normal respiratory effort, lungs clear to auscultation normal respiratory effort Cardiovascular: Rate/Rhythm: regular rate and + irregularly irregular Heart Sounds: no murmur Extremities: + edema (trace pitting edema of legs bilat) Gastrointestinal (Abdomen): normal bowel sounds, soft, nontender, no hepatosplenomegaly Musculoskeletal: Extremities: extremities normal to inspection; no cyanosis and no clubbing Skin: no rashes, warm and dry Neurologic: moves all extremities and awake; no focal motor deficits Psychiatric: Orientation: alert and oriented x 3 Eye Contact: good eye contact Speech: normal rate/rhythm/volume of speech Affect: + depressed affect Mood: + depressed mood Suicidal Thoughts: denies suicidal thoughts Insight: good insight Judgement: good judgement Lymphatic: no lymphedema Results & Data Results & Data ([facility]) Vital Signs (Past 12 Hours) Vital Signs Temp Pulse Pulse Resp BP BP Pulse Ox 08/30/20 08:23 36.2 C L 77 16 130/88 93 08/30/20 05:26 36.7 C 69 18 131/76 94 08/30/20 00:09 36.4 C L 82 20 136/82 94 08/30/20 00:00 76 Laboratory Results 08/30/20 08/30/20 08/29/20 Range/Units 07:43 07:04 20:14 Sodium 138 (136-145) mmol/L Potassium 3.7 (3.5-5.1) mmol/L Chloride 101 (98-107) mmol/L Carbon Dioxide 29 (21-32) mmol/L Anion Gap 8.0 (3-11) BUN 37 H (7-18) mg/dl Creatinine 1.53 H (0.6-1.4) mg/dl Est Cr Clr Drug Dosing 53.1 ml/min Est GFR ( Amer) 50.4 Est GFR (Non-Af Amer) 43.5 BUN/Creatinine Ratio 24.3 H (10-20) Glucose 132 H (70-99) mg/dl POC Glucose 136 H 152 H (70-99) mg/dl Calcium 9.2 (8.5-10.1) mg/dl Magnesium 2.0 (1.8-2.4) mg/dl 08/29/20 08/29/20 Range/Units 16:35 11:35 Sodium (136-145) mmol/L Potassium (3.5-5.1) mmol/L Chloride (98-107) mmol/L Carbon Dioxide (21-32) mmol/L Anion Gap (3-11) BUN (7-18) mg/dl Creatinine (0.6-1.4) mg/dl Est Cr Clr Drug Dosing ml/min Est GFR ( Amer) Est GFR (Non-Af Amer) BUN/Creatinine Ratio (10-20) Glucose (70-99) mg/dl POC Glucose 137 H 144 H (70-99) mg/dl Calcium (8.5-10.1) mg/dl Magnesium (1.8-2.4) mg/dl PG Care Time/CCT Total # of Minutes Spent Total Time Spent with Patient: Total time spent is greater than 50% in coordination of care (as documented) at patient's floor/unit and/or counseling patient: Coding Level of Care Code 51665 Subseq Hosp Care Lvl 3 Diagnoses New onset atrial fibrillation I48.91 Pleuritic chest pain R07.81 Acute on chronic combined systolic (congestive) and diastolic (congestive) heart failure I50.43 NSTEMI (non-ST elevated myocardial infarction) I21.4 CAD, multiple vessel I25.10 Hypertension I10 Hyperlipidemia E78.5 Type 2 diabetes mellitus E11.9 Ischemic cardiomyopathy I25.5 Gout M10.9 CKD (chronic kidney disease) stage 3, GFR 30-59 ml/min N18.30 Major depressive disorder F32.9 DVT prophylaxis Z29.9
[2020-08-30] MEDS ORDERED: FUROSEMIDE 40 MG in SYRINGE 0 ML IV ONE (11:00)
[2020-08-30] MEDS: SERTRALINE HCL 50 MG TABLET PO SCH (11:51)
--- NOTE | 2020-08-30 12:09 | Cardiology Progress Note ---
Date of Service August 30, 2020 Assessment & Plan (1) NSTEMI (non-ST elevated myocardial infarction): 2. Multivessel coronary disease Post PCI to distal RCA, latemid LAD, distal circumflex 3. Ischemic cardiomyopathyLVEF 20-25% 4. Acute on chronic diastolic heart failure 5. Persistent atrial fibrillation 6. 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 Acute on chronic renal insufficiency 8. Type 2 diabetes 9. Hypertension 10. Dyslipidemiastatin intolerance Congestion improved on exam today. Renal function stable. Remains well rate controlled Echo again shows severe LV dysfunction, unchanged from prior. IVC dilated. From a cardiac standpoint okay with discharge today Agree with going home on 80 mg of p.o. Lasix. Continue current Toprol-XL, resume lisinopril. Will consider Entresto as an outpatient. Previously intolerant to spironolactone. Continue dual therapy with clopidogrel, Eliquis. Eliquis increased back to 5 mg twice daily Continue colchicine 0.6 mg twice daily for 1 month Plan to start Praluent as an outpatient Follow-up with heart failure clinic in [address] Canchola within a month. Cardiac rehab to be arranged as an outpatient. Appreciate [facility] medicine care. Admission and Anticipated Discharge Date Admission Date: August 22, 2020 Subjective Feeling well this morning. Denies any chest pain or shortness of breath. Has not walked in the halls yet at time seen. . Telemetry reviewedremains in atrial fibrillation primarily in the 60s to 80s. Review of Systems Review of Systems: All systems reviewed & are unremarkable except as noted in HPI & below Physical Exam Physical Exam: General: Appears comfortable, sitting up in chair HEENT: Sclerae anicteric Lungs: Lungs clear t Cardiac: Irregular irregular 2/6 holosystolic murmur. JVP approximately 7-8 Abdomen: Soft, nontender Extremities: Warm, well perfused, no significant edema. Neuro: Nonfocal Psych: Alert orient x3, normal affect and mood Results & Data ([facility]) Vital Signs (Past 12 Hours) Vital Signs Temp Pulse Resp BP BP Pulse Ox 08/30/20 11:24 97.3 F L 73 20 114/73 93 08/30/20 08:23 97.2 F L 77 16 130/88 93 08/30/20 05:26 98.1 F 69 18 131/76 94 08/30/20 00:09 97.5 F L 82 20 136/82 94 PG Care Time/CCT Total # of Minutes Spent Total Time Spent with Patient: Total time spent is greater than 50% in coordination of care (as documented) at patient's floor/unit and/or counseling patient: Coding Level of Care Code 48634 Subseq Hosp Care Lvl 3 Diagnoses NSTEMI (non-ST elevated myocardial infarction) I21.4
--- NOTE | 2020-08-30 14:38 | Pharmacy Report ---
Pharmacy Glycemic Short Note 2 - Date of Service August 30, 2020 - Glycemic Short BSG Results (Last 24 hours): 08/29/20 08/29/20 08/30/20 16:35 20:14 07:04 Glucose 132 H POC Glucose 137 H 152 H 08/30/20 08/30/20 07:43 11:45 Glucose POC Glucose 136 H 135 H OUTPATIENT ANTIDIABETIC REGIMEN: * metformin 500 bid * A1c = 6.5% 08/23/20 ASSESSMENT: * Moisés received 21 units of bolus insulin yesterday with BSG ranging 128 - 157 mg/dL. * Fasting BSG = 136 mg/dL. Will continue to hold basal insulin. * Post prandial BSGs are acceptable. Continue current Novolog parameters. Metformin placed on hold by provider. PLAN FOR INPATIENT GLYCEMIC CONTROL: * Hold outpatient oral diabetes medications * Basal insulin * Lantus - hold * Bolus insulin * NovoLog per scale ACHS or Q6hrs while NPO * Goal Range: Low 110 mg/dL - High 140 mg/dL * Correction Factor: 25 mg/dL/unit * Nutritional / Prandial insulin per carb ratio of 1 unit per 7 grams CHO consumed PLAN FOR DISCHARGE: * A1c of 6.5 indicates good glycemic control. Would consider continuation of home metformin as long as no contraindications exist
[2020-08-30] MEDS: APIXABAN 5 MG TABLET PO SCH (21:09)
[2020-08-30] MEDS: COLESTIPOL HCL 1 GM TAB PO SCH (22:08)
[2020-08-31 06:25] LABS: Basophils # (auto) 0.04 K/uL (0-0.2); Basophils % (auto) 0.4 %; Eosinophils # (auto) 0.26 K/uL (0-0.5); Eosinophils % (auto) 2.5 %; Hematocrit (blood only) 38.1 % (42-52); Hemoglobin 12.9 g/dL (14.0-18.0); Immature Granulocytes # (auto) 0.04 K/uL (0.00-0.02); Immature Granulocytes % (auto) 0.4 %; Lymphocytes % (auto) 14.2 %; Mean Corpuscular Hemoglobin 31.3 pg (25-34); Mean Corpuscular Hgb Conc 33.9 g/dL (32-36); Mean Corpuscular Volume 92.5 fL (80-100); Mean Platelet Volume 10.6 fL (7.4-10.4); Monocytes # (auto) 0.42 K/uL (0.11-0.59); Neutrophils # (auto) 8.32 K/uL (1.4-6.5); Neutrophils % (auto) 78.5 %; Platelet Count 298 K/uL (130-400); RDW Coefficient of Variation 14.3 % (11.5-14.5); RDW Standard Deviation 48.3 fL (36.4-46.3); Red Blood Count 4.12 M/uL (4.7-6.1); White Blood Count 10.58 K/uL (4.8-10.8)
[2020-08-31 06:56] LABS: BUN Creatinine Ratio 24.7 (10-20); Calcium 9.6 mg/dl (8.5-10.1); Creatinine Clr Calc Pharmacy 58.5 ml/min; Est GFR (African American) 56.7; Est GFR (Non-African American) 48.9; Potassium 3.5 mmol/L (3.5-5.1)
[2020-08-31] MEDS: INSULIN ASPART 100 UNITS/ML 3 ML PEN SC SCH ×2 (08:12→11:56)
[2020-08-31] MEDS: SERTRALINE HCL 50 MG TABLET PO SCH (08:13)
[2020-08-31] MEDS: CLOPIDOGREL BISULFATE 75 MG TAB PO SCH (08:14)
[2020-08-31] MEDS: MULTIVITAMIN TAB PO SCH (08:14)
[2020-08-31] MEDS: allopurinoL 300 MG TAB PO SCH (08:14)
[2020-08-31] MEDS: CEROVITE ADV FORMULA TAB PO SCH (08:14)
[2020-08-31] MEDS: METOPROLOL SUCC 50MG EXT REL TAB PO SCH (08:14)
[2020-08-31] MEDS: COLCHICINE 0.6 MG TAB PO SCH (08:15)
[2020-08-31] MEDS: FAMOTIDINE 20 MG TAB PO SCH (08:15)
[2020-08-31] MEDS: OMEGA-3 (PURIFIED FISH OIL) 1 GM CAP PO SCH (08:15)
[2020-08-31] MEDS: APIXABAN 5 MG TABLET PO SCH (08:16)
[2020-08-31] MEDS: TRIAMCINOLONE ACET NASAL SPRAY 10.8ML BTL SCH (08:16)
[2020-08-31] MEDS ORDERED: lisinopril 20 MG TAB PO SCH (09:00)
[2020-08-31] MEDS ORDERED: FUROSEMIDE 80 MG TAB PO SCH (09:00)
[2020-08-31] MEDS: PSYLLIUM 58.6% POWDER PACKET PO SCH (09:31)
--- NOTE | 2020-08-31 11:51 | Discharge Summary ---
Date of Service August 31, 2020 Admission HPI Per Admitting Provider Mr. Peterson is a 75-year-old male with a history of CAD s/p Anterior SD 08/04/2007 (s/p 3.5 x 15 mm Stent in early mid LAD), 70% Ostial LCx stenosis, Subtotal Distal RCA stenosis, Ischemic Cardiomyopathy (LVEF 45% to 50%), Type 2 Diabetes Mellitus, Hypertension, Dyslipidemia (intolerant of statin therapy), and Chronic Diastolic CHF who woke up this morning with a relatively severe chest pressure and elevated BP readings. Patient subsequently took his usual morning medications and his chest pressure gradually improved. He contacted his solution lead's office with concern about his BP readings and was advised to take an extra Metoprolol -- which he did. His BP improved, but he's continued to experience a low-level chest pressure off and on throughout the day rated a 1 or 2/10. Chest pressure is associated with nausea and diaphoresis and is reminiscent of his prior anginal complaints. It gets slightly worse with exertion. His breathing has been stable and his body weight has been holding steady. He is closely followed by [facility] Heart Failure Program. HISTORICAL BACKGROUND: History of coronary artery disease dates back to an Anterior SD August 04, 2007. Cardiac Catheterization at that time revealed total early mid LAD occlusion. Subsequent deployment of 3.5 x 15 mm bare metal stent. 70% Ostial LCx stenosis. Subtotal distal RCA stenosis. History of bilateral pulmonary emboli April 2010. History of diabetes mellitus, dyslipidemia, and hypertension. Intolerant of statin therapy. Dobutamine stress echocardiogram negative for myocardial ischemia at 87% MPHR 09/2010. Dobutamine Stress Echocardiogram 2012 negative for evidence of myocardial ischemia. Resting LV ejection fraction 35% -- anteroseptal, apical, anterolateral, and anterior akinesis. He was admitted from 03/07/2020 through 03/12/20 for newly diagnosed acute diastolic congestive heart failure. He presented with shortness of breath. He was hypervolemic on exam. He responded well to diuretics, net negative 4 L during admission. Patient was referred to the heart failure program upon discharge. He was discharged on Spironolactone 25 mg daily and Lasix 60 mg daily. 03/08/2020 Echo: Normal LV size, EF 45%-50%. Hypokinesis of inferior wall, basal inferoseptum, distal anterior, and basal anteroseptal wall. Akinesis of mid anteroseptum and mid to distal inferoseptum. [place] is hypokinetic to akinetic. No LVH. Mild RV dilation with normal function. Mild biatrial dilation. Mild mitral regurgitation. No change from 2018. Patient was then evaluated with the heart failure program on 03/17/20. At that time he was feeling well without heart failure symptoms. Dry weight was 275 lb. Labs demonstrated slight azotemia and Lasix was decreased from 60 mg to 40 mg daily. Patient was readmitted from 03/30/20 through 04/01/20 for symptomatic bradycardia secondary to hyperkalemia. He was treated with multiple dose of insulin, calcium gluconate, kayexalate, IVF. HCTZ, Spironolactone were held on discharge. Follow up labs demonstrated stable electrolytes and kidney function. Principal Diagnosis NSTEMI, acute on chronic combined systolic and diastolic CHF Discharge Exam Constitutional WD/WN, vitals as above Eyes + anicteric sclerae ENMT Ears: + hearing impairment Neck trachea midline, no thyromegaly Respiratory normal respiratory effort, lungs clear to auscultation normal respiratory effort Cardiovascular Rate/Rhythm: regular rate and + irregularly irregular Heart Sounds: no murmur Extremities: + edema (trace pitting edema of legs bilat) Gastrointestinal (Abdomen) normal bowel sounds, soft, nontender, no hepatosplenomegaly Musculoskeletal Extremities: extremities normal to inspection; no cyanosis and no clubbing Skin no rashes, warm and dry Neurologic moves all extremities and awake; no focal motor deficits Psychiatric A+Ox3, euthymic affect Eye Contact: good eye contact Speech: normal rate/rhythm/volume of speech Insight: good insight Judgement: good judgement Lymphatic no lymphedema Discharge Data Allergies Allergy/AdvReac Type Severity Reaction Status Date / Time spironolactone AdvReac Severe Increased Verified 08/22/20 16:44 K, decreased HR Wypvkqf-Oji-Rzf Reductase AdvReac Intermediate MYALGIAS Verified 08/22/20 16:44 Inhibitor Consultations 08/22/20 19:54 Consult Cardiology Routine 08/23/20 13:25 Consult Cardiac Rehabilitation Routine 08/24/20 07:58 Consult Case Management - Discharge Planning Routine 08/28/20 09:49 Consult Case Management - Discharge Planning Routine 08/29/20 17:35 Consult Case Management - Discharge Planning Routine Procedures Performed Operation Date: 08/23/20 11:00 Actual Procedures p Cath, Left with Cors and Vent - Jeffry Peterson MD s Cineradiography w/Routine Exam - Jeffry Peterson MD s IVUS Coronary Single Vessel - Jeffry Peterson MD s IVUS Coronary each ADDL Vessel - Jeffry Peterson MD s Drug Eluting Stent SGl Vessel - Jeffry Peterson MD s Drug Eluting Stent each ADDTL Vessel - Jeffry Peterson MD Operation Date: 08/24/20 21:10 Actual Procedures s Cath, Left with Cors and Vent - Jeffry Peterson MD s Cineradiography w/Routine Exam - Jeffry Peterson MD p Drug Eluting Stent SGl Vessel - Jeffry Peterson MD Ordered Studies 08/23/20 11:03 CL Cath Imgs for PACS use only Routine 08/23/20 14:31 CL Cath Imgs for PACS use only Routine 08/24/20 21:12 CL Cath Imgs for PACS use only Stat CXRx4 ECHO x 2 Hospital Course (1) New onset atrial fibrillation: Converted to new onset atrial fibrillation overnight on 08/26, remains in it but rate controlled Asymptomatic -continue metoprolol succinate 100mg PO BID which is a change from home regimen of 200 mg once daily -Started on Eliquis 5mg po bid today as renal function stable Appreciate Cardiology recommendations (2) Pleuritic chest pain: Continued to have residual chest pain even after stents in place Cardiology Dr. 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 ESR/CRP quite elevated which is consistent with such Now chest pain is completely resolved since starting colchicine 08/29 noted exertional chest tightness while walking halls that went away with rest. Ths is also now resolved with IV diuresis -continue colchicine x 1 month as per Cardio -Continue to follow ESR and CRP-CRP is starting to trend downward but ESR remains greater than 90 -Cardio recs to dc isosorbide Follow up with Cardiology (3) Acute on chronic combined systolic (congestive) and diastolic (congestive) heart failure: Ischemic cardiomyopathyLVEF here 20-25% with worse anterior, lateral wall motion abnormality Repeat limited ECHO 08/30 same Was noted to have elevated LVEDP of 22 on cardiac catheterization Was given IV Lasix on several occasions and will go home on Lasix 80 mg p.o. once daily Dyspnea on exertion much improved and weight is down and net negative on his I's and O's since admission No further crackles on examination and BUN and creatinine have actually improved since admission - Monitor daily weights, low-sodium diet, and fluid restriction of 1500 mL/day at home -Continue lower dose of lisinopril 20mg daily and dc isosorbide as per Cardio -consideration to be made for Entresto in the future Follow BMP as an outpatient Follows with CHF clinic -Continue Toprol-XL 100 bid -will need repeat ECHO in 3 months and consideration for AICD if EF remains poor (4) NSTEMI (non-ST elevated myocardial infarction): Serial changes of anterior ischemic changes on EKGs. S/p cardiac catheterization with multivessel coronary artery disease and x2 PCI and SONYA to distal RCA-PDA and latemid LAD. Ongoing chest pain therefore taken back to cardiac catheterization technician for PCI and SONYA to residual disease in circumflex Troponin peaked at 21.9 Continue clopidogrel and colchicine rather than ASA as above. Once colchicine is completed, will likely go back on aspirin in addition to the Plavix for DAPT dc isosorbide mononitrate Continue metoprolol XL 100 to BID per cardiology recommendations Continue lasix and lisinopril as above Statin intolerant-Praluent cost $15 with insurance (insurance preferred over Repatha) -prescribed on discharge Appreciate cardiology ongoing management. (5) CAD, multiple vessel: As outlined above. (6) Hypertension: Blood pressures stable Continue Lasix, lisinopril, and metoprolol -discontinued isosorbide (7) Hyperlipidemia: Patient is statin intolerant, start on Praluent every 2 weeks as outpatient. Continue [place] 3 fish oil capsules. (8) Type 2 diabetes mellitus: HbA1C 6.5. 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 reamer improved today at 1.3 -Avoid nephrotoxins -renally dose meds when appropriate -follow BMP as an outpatient Continue Lasix (12) Major depressive disorder: feels depressed o nmost days, thoughts of being better off , no plans for suicide post-SD started ZOloft 25mg po qAM and encouraged to seek counseling after discharge Follow-up with PCP and given precautions about black box warning for increased suicidality risk He contracts for safety (13) DVT prophylaxis: SCDs Felisa Dispo-stable for discharge to home PT/OT consults ordered, recommend home, does not qualify for rehab as he requested Will need Cardiac rehab after discharge as well Total Time Total Time Spent Total Time Spent (In Minutes): 40 minutes Total Time Includes: Examination of the Patient, Discharge Planning, Medication Reconciliation and Communication With Other Providers (Cardiology) Discharge Plan Discharge Items Patient Disposition: Home - Self-Care Reason For Visit: NSTEMI Discharge Diagnosis: Heart attack (non-ST elevation myocardiac infarction), Congestive heart failure Condition on Discharge: Good Activity: As commented below Lifting: No more than 5 pounds Bathing: No limitations Exercise Comment: No heavy exertion until after follow up with Cardiology Driving/Machine Use: No limitations Non-emergency contact: Primary Care Provider and Park Maintenance Technician Call non-emergency contact if: you have any medication questions and your symptoms worsen Follow-up/Referrals: Sohan Lawler MD [Primary Care Provider] - (Follow-up within 1 week) Lee Ann Kennedy PA-C [Physician Clinical Quality Analyst] - 09/06/20 2:00 pm Diet: Carb Consistent or DM2, Heart Healthy and Low Sodium (2gm) Addtl Attending Provider Instructions: You were admitted to [facility] from August 22 to 2019 due to chest pain. You were diagnosed with a heart attack and treated with cardiac catheterization and x2 drug-eluting stents placed. You have congestive heart failure and the function of your heart is currently at 20-25%. You were given IV Lasix which helped take some fluid off and help you feel less short of breath. Your medications have been changed around so please follow the medication list instructions carefully. You were also diagnosed with an irregular heart rhythm called atrial fibrillation. You were started on apixaban as a blood thinner for this to prevent stroke. Please follow-up with the CHF clinic as scheduled and with your primary care physician within 1 week. You had some chest pains and were diagnosed with a post myocardial infarction pericarditis which means inflammation around the heart lining. This is being treated with colchicine for at least 1 month. The solution lead will tell you when you can stop taking this medication. You were also started on an antidepressant called sertraline/Zoloft for major depressive disorder. Please follow-up with your primary care physician for further management of this and to get a referral to a therapist for counseling which can also be very beneficial. It has been a pleasure taking care of you exhalation point -Dr. Kay Borgestl Ceramic Plater Provider Instructions: ACTIVITY RECOMMENDATIONS POST CARDIAC CATHETERIZATION: Excess manipulation of the wrist should be avoided for the next 24-48 hours. * No lifting over 2 pounds (approximately a 1/2 gallon of milk) with the utilized arm for 24 hours. * No strenuous activity such as bowling or tennis for 3 days. * Keep the site of the procedure covered with a bandage for 24 hours. *You may shower the day after the procedure. Do not take a tub bath or submerge the puncture site in water for the next 3 days. *Do not operate any motorized equipment for 3 days. SPECIAL CARE INSTRUCTIONS: The site may be slightly bruised and sore following your procedure. Should any of the following occur, contact the Dr. who performed your procedure. 1. Redness/inflammation, swelling, chills, or fever, or colored drainage at procedure site within 3-7 days after your procedure. 2. Coldness, discoloration, ongoing numbness, severe pain, or swelling. Expect mild tingling of hand and tenderness at the puncture site for up to three days. If this persists beyond three days, or other symptoms develop, notify the Dr. who performed your procedure. BLEEDING: If the procedure site on your wrist begins to bleed, do not panic 1. Place 1 or 2 fingers firmly just slightly above the insertion site to stop the bleeding. You may be able to feel your pulse as you hold pressure. 2. Lift your finger after 5 minutes to see if the bleeding has stopped. 3. Once the bleeding has stopped, gently wipe the wrist area clean with a bandage. * If the bleeding from your wrist does not stop after 10 minutes, or if there is a large amount of bleeding or spurting, call 911 (do not drive yourself to the hospital). SKIN IRRITATION: * You may experience some redness and/or swelling in the area where radiation was administered. If any skin irritation occurs, please contact your family physician. FOLLOW UP VISIT: Keep any scheduled doctor appointments. Pending Studies at Discharge: No Stand-Alone Forms: My [facility] Medications and DC Order Prescriptions: New clopidogrel 75 mg Tablet 75 mg PO QAM 30 Days Qty: 30 RF: 0 Eliquis 5 mg Tablet 5 mg PO BID Qty: 60 RF: 0 sertraline 25 mg tablet 25 mg PO DAILY Qty: 30 RF: 0 metformin 500 mg Tablet 500 mg PO BIDM Qty: 60 RF: 0 colchicine [Colcrys] 0.6 mg Tablet 0.6 mg PO BID Qty: 60 RF: 0 Praluent Pen 75 mg/mL pen injector 75 mg subcut Q14D Qty: 2 RF: 0 Continued metformin 500 mg tablet 500 mg PO BIDM RF: 0 allopurinol 300 mg tablet 300 mg PO DAILY RF: 0 PreserVision AREDS [id number] ijyf-ca-fqph capsule 1 cap PO BID RF: 0 Centrum Silver Men 300-600-300 mcg tablet 1 tab PO DAILY RF: 0 omega 6-cef-pzv-fish oil [Fish Oil] 1,000 mg (120 mg-180 mg) capsule 1 cap PO DAILY RF: 0 clotrimazole [Antifungal (clotrimazole)] 1 % cream 1 appln TOP BID PRN (Reason: break outs) RF: 0 triamcinolone acetonide [Nasacort] 55 mcg aerosol,spray 1 sprays INTNAS DAILY RF: 0 nitroglycerin 0.4 mg tablet, sublingual 0.4 mg SL Q5M PRN (Reason: chest pain) Qty: 25 RF: 0 Blue Emu Cream 1 applic topical TID PRN (Reason: pain) RF: 0 colestipol 1 gram tablet 2 g PO QPM RF: 0 Changed lisinopril 20 mg tablet 20 mg PO QAM Qty: 0 RF: 0 furosemide [Lasix] 40 mg tablet 80 mg PO QAM Qty: 0 RF: 0 metoprolol succinate 100 mg tablet extended release 24 hr 100 mg PO BID Qty: 0 RF: 0 Discontinued isosorbide mononitrate 60 mg tablet extended release 24 hr 60 mg PO DAILY Qty: 90 RF: 3 naproxen sodium 220 mg tablet 220 mg PO Q12H PRN (Reason: pain) RF: 0 aspirin [Aspir-Low] 81 mg Tablet,Delayed Release (Dr/Ec) 81 mg PO DAILY RF: 0 Discharge Orders: Discharge Order (Routine); Ordered 08/31/20 Ordered By: Kay Moreno/Other Patient Handouts: High Blood Sugar (Hyperglycemia), Hypoglycemia (Low Blood Sugar), Managing Type 2 Diabetes, 5 Steps for Eating Healthier Admission Data Admit Date/Time: 08/22/20 18:17 Attending Provider: Kay Corona Admit Provider: Tony Hammond Primary Care Provider: Sohan Lawler Other Providers: Jeffry Peterson ; [facility],[employer] Coding Level of Care Code D/C Day Management >30 mins Diagnoses New onset atrial fibrillation I48.91 Pleuritic chest pain R07.81 Acute on chronic combined systolic (congestive) and diastolic (congestive) heart failure I50.43 NSTEMI (non-ST elevated myocardial infarction) I21.4 CAD, multiple vessel I25.10 Hypertension I10 Hyperlipidemia E78.5 Type 2 diabetes mellitus E11.9 Ischemic cardiomyopathy I25.5 Gout M10.9 CKD (chronic kidney disease) stage 3, GFR 30-59 ml/min N18.30 Major depressive disorder F32.9 DVT prophylaxis Z29.9
== END 2020-08-31 14:13 | disposition home health service (06) | DRG 246 ==
LOC: ED 13:56 → 2S 18:17 → SUATTDRO 18:17 → 2S 19:17 → 2N 08-26 14:13

== ENCOUNTER 2020-11-14 17:04 | Observation (INO) ==
[2020-11-14] MEDS ORDERED: NITROGLYCERIN 2% OINTMENT 30GM TUBE EXT STA (19:23)
--- NOTE | 2020-11-14 19:30 | Emergency Department Note ---
Impression & Plan Precordial chest pain, SOB (shortness of breath), History of coronary artery disease, History of pericarditis ED Provider Note NAME: LATANYA ASHLEY AGE: 75 SEX: M : 1945 ARRIVES VIA: Walk-In INFORMANT: [Patient] ED PROVIDER(S): [Nikolai Anders MD] CHIEF COMPLAINT: Chest pain HISTORY OF PRESENT ILLNESS: The patient is a 75-year-old male who presents to the ER with around 8 hours of mild central chest pain that worsens to inhale. He is not short of breath, he h as not had fever or chills. There has been no nausea or vomiting. No trauma. The patient spoke to the staff carbonating stone cleaner for the heart failure clinic and was sent to the ER. The patient admits that for the last 3 months, he has had some dyspnea. He states that this is being dealt with by his doctors, he has heart disease, he has A. fib. The 2 things are making him winded. He notices his dyspnea with exertion. He has to stop to catch his breath. The patient does not typically have chest pain, when he called today and spoke to the heart failure clinic, because of the pain, he was referred. Of note, the patient is on Eliquis. He also takes medications to control his heart rate. The patient states that he had 3 cardiac stents placed in August, about 3 months ago. REVIEW OF SYSTEMS: See HPI for pertinent positives and negatives. A total of ten systems were reviewed and were otherwise negative. PMHx/PSHx: See Below SOCIAL HISTORY: See Below. PHYSICAL EXAM: GENERAL: Patient is in no acute distress. HEENT: No acute trauma, normocephalic atraumatic, mucous membranes moist, no nasal congestion, no scleral icterus. NECK: No stridor, no adenopathy, no meningismus, trachea is midline. LUNGS: Clear to auscultation bilaterally, no wheeze, no rhonchi, breath sounds equal. HEART: Without murmurs gallops or rubs, regular rate and rhythm. Heart tones are distant. ABDOMEN: Soft, nontender, bowel sounds positive, no hernias, no peritonitis. EXTREMITIES: No cyanosis, moderate bilateral pedal edema, full range of motion of all the joints without pain or difficulty, no signs for acute trauma. NEUROLOGIC: Oriented x 3, no acute motor or sensory deficits, no focal weakness. SKIN: No rash, no jaundice, no diaphoresis. DIFFERENTIAL DIAGNOSIS: Cardiac ischemia, aortic dissection, pulmonary embolism, pneumothorax, pneumonia, pericarditis, myocarditis, esophageal rupture, GERD, cholecystitis, pancreatitis, musculoskeletal, as well as other pathologies. EMERGENCY DEPARTMENT COURSE/PROCEDURES: ECG: Indication was chest pain. The ECG shows some baseline artifact. The rhythm is difficult but I believe this is a sinus rhythm with a long first- degree AV block. The rate is 72. There is a potential old inferior infarct and some poor R wave progression. An old anterior lateral infarct appears present. The QTc is 479. Compared to an ECG from 11 October 2020, I see no significant change. Continuous Cardiac Monitoring: An order was placed for continuous cardiac monitoring. The monitor shows a rate of 78 with sinus rhythm with a first- degree AV block. MEDICAL DECISION MAKING: There is no leukocytosis or concerning anemia. There is a normal platelet cou nt. There is some mild renal insufficiency but this is baseline looking back at previous testing. No concerning electrolyte abnormality. Magnesium slightly low but not in need of emergent correction. No worrisome liver enzyme elevation. ECG shows what appears to be a sinus rhythm with a first-degree AV block. No acute ischemic change. Cardiac enzyme testing x1 is not consistent with acute cardiac injury. There is no evidence for pancreatitis by our testing. Covid testing returned negative. Chest film showed some cardiomegaly, I see no CHF or mediastinal widening. There was no pneumonia. On exam, the patient complained of central pleuritic chest discomfort. The pain was not reproducible. The patient was not toxic or febrile. The patient was given 1 inch of nitroglycerin paste. He thought this may have helped his discomfort slightly but the pain did not completely resolve. I spoke to cardiology on-call. Given the patient's complicated recent past history, a hospital stay and further cardiac work-up was felt warranted. Certainly, the patient's chest pain does seem atypical for cardiac ischemia however, further enzyme testing and a cardiology consult in the a.m. was felt warranted. I did speak with case management, I spoke to the patient. The on- call hospitalist was consulted. Past Med/Surg History Medical History Arthritis back, knees Atrial fibrillation New onset a. fib 08/2020 in setting of NSTEMI (which resulted in placement of 3 stents) Chronic anticoagulation Chronic systolic heart failure CKD (chronic kidney disease) stage 3, GFR 30-59 ml/min Coronary artery disease stent x1 (2006), stents x3 (08/2020) Diastolic CHF Newly diagnosed during 03/2020 admission, responded well to diuretics > discharged on diuretics and referred to HF clinic per cardiology records Gout of ankle Hx of myocardial infarction 2006, NSTEMI (08/2020 > 3 stents) Hyperlipidemia Hypertension Ischemic cardiomyopathy Low back pain Lyme disease hx of 2018 Major depressive disorder Obesity Paroxysmal atrial fibrillation Pulmonary embolism 5+ years ago Type 2 diabetes mellitus NIDDM Surgical History History of prostate biopsy S/P coronary artery stent placement stent x1 (2006), stents x3 (08/2020) Family History Family/Other Prostate cancer Father Heart disease Mother Bone cancer Sister Colon cancer Social History Smoking Status: Never smoker Second Hand Exposure: No; Do You Dip or Chew Tobacco: No; Tobacco Cessation Education Requested by Patient: No Hx Alcohol Use: Yes Alcohol type: wine Hx Substance Use: No Preferred Language: Qatari Communication Ability: Effective 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 Beliefs That Will Affect Care: Sikhism Sikhism Beliefs: RESTORATIONISM marital status: Single Current Living Situation: Alone current occupational status: retired Other Information That Helps Us Care for You: No Feels Safe at Home: Yes Safety Concerns: Feels Safe At This Time Diet Comment: Has special diet unsure what kind Assistive Devices: Glasses Allergies Allergies Allergy/AdvReac Type Severity Reaction Status Date / Time spironolactone AdvReac Severe Hyperkalemia, Verified 11/14/20 19:38 bradycardia Ktoingg-Slz-Gla Reductase AdvReac Intermediate Myalgias Verified 11/14/20 19:38 Inhibitor Home Meds Home Medications Medication Instructions Recorded Confirmed allopurinol 300 mg tablet 300 mg PO QAM tab 05/11/19 11/14/20 nvqkdlbr-dpy-kwlaj acid 300 1 tab PO DAILY 05/11/19 11/14/20 mcg-lycopene 600 mcg-lutein 300 mcg tablet vitamins A,C,G-lwhc-eiquoa 14,320 1 cap PO BID 05/11/19 11/14/20 unit-226 mg-200 unit capsule omega 8-qxl-gmw-fish oil 1,000 mg 1 cap PO DAILY 05/20/19 11/14/20 (120 mg-180 mg) capsule triamcinolone acetonide 55 mcg 1 sprays INTNAS DAILY 03/17/20 11/14/20 nasal spray aerosol colestipol 2 g PO QPM 08/22/20 11/14/20 amiodarone 200 mg PO HS 10/06/20 11/14/20 colchicine 0.6 mg PO QAM 10/06/20 11/14/20 sertraline 50 mg PO DAILY 11/14/20 11/14/20 Previous Rx's Medication Instructions Recorded metformin 500 mg PO BIDM #60 tab 08/31/20 nitroglycerin 0.4 mg sublingual 0.4 mg SL Q5M PRN #25 tab 09/06/20 tablet apixaban 5 mg tablet 5 mg PO BID #180 tab 09/20/20 clopidogrel 75 mg tablet 75 mg PO QAM 30 Days #90 tab 09/20/20 metoprolol succinate 100 mg 100 mg PO BID #180 tab 10/17/20 tablet,extended release 24 hr furosemide 40 mg tablet 80 mg PO QAM #200 tab 11/04/20 sacubitril 97 mg-valsartan 103 mg 1 tab PO BID #180 tab 11/04/20 tablet Results & Data (ED) Vital Signs Vital Signs - 24 hr 11/14/20 17:08 11/14/20 19:48 11/14/20 19:50 Temperature 36.2 C L Temperature Source Temporal Artery Scan Pulse Rate 78 72 Pulse Rate [Apical] 72 Pulse Rate from SpO2 Sensor Respiratory Rate 20 17 Blood Pressure 126/82 138/86 Blood Pressure [Left Arm] 132/93 Blood Pressure Mean 96 103 Blood Pressure Mean [Left Arm] 106 Pulse Oximetry 93 95 95 Oxygen Delivery Method Room Air Room Air Room Air Sepsis Recent Fever Within 48 Hours No Sepsis New/Unexplained Change in Mental Status N/A Sepsis Action Taken by Nursing No Action Required 11/14/20 20:00 11/14/20 20:15 11/14/20 20:30 Temperature Temperature Source Pulse Rate 71 70 73 Pulse Rate [Apical] Pulse Rate from SpO2 Sensor 71 70 Respiratory Rate 20 20 20 Blood Pressure 134/88 133/87 112/79 Blood Pressure [Left Arm] Blood Pressure Mean 103 102 90 Blood Pressure Mean [Left Arm] Pulse Oximetry 93 91 92 Oxygen Delivery Method Sepsis Recent Fever Within 48 Hours Sepsis New/Unexplained Change in Mental Status Sepsis Action Taken by Nursing 11/14/20 20:45 11/14/20 21:00 11/14/20 21:15 Temperature Temperature Source Pulse Rate 70 67 73 Pulse Rate [Apical] Pulse Rate from SpO2 Sensor Respiratory Rate 19 20 21 Blood Pressure 119/70 113/70 136/79 Blood Pressure [Left Arm] Blood Pressure Mean 86 84 98 Blood Pressure Mean [Left Arm] Pulse Oximetry 92 91 93 Oxygen Delivery Method Sepsis Recent Fever Within 48 Hours Sepsis New/Unexplained Change in Mental Status Sepsis Action Taken by Nursing 11/14/20 21:30 11/14/20 21:45 11/14/20 22:00 Temperature Temperature Source Pulse Rate 72 72 72 Pulse Rate [Apical] Pulse Rate from SpO2 Sensor Respiratory Rate 19 14 20 Blood Pressure 132/84 116/74 129/79 Blood Pressure [Left Arm] Blood Pressure Mean 100 88 95 Blood Pressure Mean [Left Arm] Pulse Oximetry 92 91 91 Oxygen Delivery Method Sepsis Recent Fever Within 48 Hours Sepsis New/Unexplained Change in Mental Status Sepsis Action Taken by Nursing 11/14/20 22:15 11/14/20 22:20 11/14/20 22:30 Temperature Temperature Source Pulse Rate 72 72 74 Pulse Rate [Apical] Pulse Rate from SpO2 Sensor 73 72 74 Respiratory Rate 20 21 21 Blood Pressure 134/74 131/72 Blood Pressure [Left Arm] Blood Pressure Mean 94 91 Blood Pressure Mean [Left Arm] Pulse Oximetry 91 92 92 Oxygen Delivery Method Sepsis Recent Fever Within 48 Hours Sepsis New/Unexplained Change in Mental Status Sepsis Action Taken by Nursing 11/14/20 22:31 11/14/20 22:45 11/14/20 23:00 Temperature Temperature Source Pulse Rate 75 75 66 Pulse Rate [Apical] Pulse Rate from SpO2 Sensor 75 75 76 Respiratory Rate 20 20 22 Blood Pressure 139/88 125/78 Blood Pressure [Left Arm] Blood Pressure Mean 105 93 Blood Pressure Mean [Left Arm] Pulse Oximetry 93 93 93 Oxygen Delivery Method Sepsis Recent Fever Within 48 Hours Sepsis New/Unexplained Change in Mental Status Sepsis Action Taken by Nursing 11/14/20 23:01 Temperature Temperature Source Pulse Rate 72 Pulse Rate [Apical] Pulse Rate from SpO2 Sensor 72 Respiratory Rate 21 Blood Pressure Blood Pressure [Left Arm] Blood Pressure Mean Blood Pressure Mean [Left Arm] Pulse Oximetry 92 Oxygen Delivery Method Sepsis Recent Fever Within 48 Hours Sepsis New/Unexplained Change in Mental Status Sepsis Action Taken by Half-Way Medications Current Medication List: was personally reviewed by me Laboratory Data Attestation: I reviewed the patient's lab results. Result diagrams: 11/15/20 04:14 11/15/20 04:14 Lab Results 11/14/20 11/14/20 11/14/20 Range/Units 19:51 19:51 22:10 WBC 10.29 (4.8-10.8) K/uL RBC 4.28 L (4.7-6.1) M/uL Hgb 13.4 L (14.0-18.0) g/dL Hct 40.3 L (42-52) % MCV 94.2 (80-100) fL MCH 31.3 (25-34) pg MCHC 33.3 (32-36) g/dL RDW Std Deviation 54.5 H (36.4-46.3) fL RDW Coeff of Jeff 15.8 H (11.5-14.5) % Plt Count 229 (130-400) K/uL MPV 10.6 H (7.4-10.4) fL Immature Gran % (Auto) 0.2 % Neut % (Auto) 82.2 % Lymph % (Auto) 7.9 % Merrick % (Auto) 8.6 % Eos % (Auto) 1.0 % Baso % (Auto) 0.1 % Neut # (Auto) 8.47 H (1.4-6.5) K/uL Lymph # (Auto) 0.81 L (1.2-3.4) K/uL Merrick # (Auto) 0.88 H (0.11-0.59) K/uL Eos # (Auto) 0.10 (0-0.5) K/uL Baso # (Auto) 0.01 (0-0.2) K/uL Immature Gran # (Auto) 0.02 (0.00-0.02) K/uL Sodium 142 (136-145) mmol/L Potassium 3.6 (3.5-5.1) mmol/L Chloride 106 (98-107) mmol/L Carbon Dioxide 30 (21-32) mmol/L Anion Gap 6.0 (3-11) BUN 26 H (7-18) mg/dl Creatinine 1.55 H (0.6-1.4) mg/dl Est Cr Clr Drug Dosing 52.7 ml/min Est GFR ( Amer) 49.7 Est GFR (Non-Af Amer) 42.8 BUN/Creatinine Ratio 16.8 (10-20) Glucose 112 H (70-99) mg/dl Calcium 9.5 (8.5-10.1) mg/dl Magnesium 1.7 L (1.8-2.4) mg/dl Total Bilirubin 0.8 (0.2-1) mg/dl AST 9 L (15-37) U/L ALT 15 (12-78) U/L Alkaline Phosphatase 121 H (45-117) U/L Troponin I < 0.015 (0-0.045) ng/ml Total Protein 7.5 (6.4-8.2) gm/dl Albumin 3.8 (3.4-5.0) gm/dl Globulin 3.7 (2.5-4.0) gm/dl Albumin/Globulin Ratio 1.0 (0.9-2) Lipase 166 (73-393) U/L COVID-19 Eval [facility] SARS-CoV-2, RNA, NAAT (NEGATIVE) 11/14/20 Range/Units 22:10 WBC (4.8-10.8) K/uL RBC (4.7-6.1) M/uL Hgb (14.0-18.0) g/dL Hct (42-52) % MCV (80-100) fL MCH (25-34) pg MCHC (32-36) g/dL RDW Std Deviation (36.4-46.3) fL RDW Coeff of Jeff (11.5-14.5) % Plt Count (130-400) K/uL MPV (7.4-10.4) fL Immature Gran % (Auto) % Neut % (Auto) % Lymph % (Auto) % Merrick % (Auto) % Eos % (Auto) % Baso % (Auto) % Neut # (Auto) (1.4-6.5) K/uL Lymph # (Auto) (1.2-3.4) K/uL Merrick # (Auto) (0.11-0.59) K/uL Eos # (Auto) (0-0.5) K/uL Baso # (Auto) (0-0.2) K/uL Immature Gran # (Auto) (0.00-0.02) K/uL Sodium (136-145) mmol/L Potassium (3.5-5.1) mmol/L Chloride (98-107) mmol/L Carbon Dioxide (21-32) mmol/L Anion Gap (3-11) BUN (7-18) mg/dl Creatinine (0.6-1.4) mg/dl Est Cr Clr Drug Dosing ml/min Est GFR ( Amer) Est GFR (Non-Af Amer) BUN/Creatinine Ratio (10-20) Glucose (70-99) mg/dl Calcium (8.5-10.1) mg/dl Magnesium (1.8-2.4) mg/dl Total Bilirubin (0.2-1) mg/dl AST (15-37) U/L ALT (12-78) U/L Alkaline Phosphatase (45-117) U/L Troponin I (0-0.045) ng/ml Total Protein (6.4-8.2) gm/dl Albumin (3.4-5.0) gm/dl Globulin (2.5-4.0) gm/dl Albumin/Globulin Ratio (0.9-2) Lipase (73-393) U/L COVID-19 Eval Order SARS-CoV-2, RNA, NAAT NEGATIVE (NEGATIVE) Administered Medications Allopurinol (Allopurinol 300 Mg Tab) 300 mg PO QAM [facility] Stop: 12/15/20 08:59 Last Admin: 11/15/20 09:25 Dose: 300 mg Documented by: [id number] Apixaban (Apixaban 5 Mg Tablet) 5 mg PO BID [facility] Stop: 12/15/20 08:59 Last Admin: 11/15/20 09:26 Dose: 5 mg Documented by: [id number] Clopidogrel Bisulfate (Clopidogrel Bisulfate 75 Mg Tab) 75 mg PO QAM [facility] Stop: 12/15/20 08:59 Last Admin: 11/15/20 09:25 Dose: 75 mg Documented by: [id number] Colchicine (Colchicine 0.6 Mg Tab) 0.6 mg PO QAM [facility] Stop: 12/15/20 08:59 Last Admin: 11/15/20 09:25 Dose: 0.6 mg Documented by: [id number] Furosemide (Furosemide 80 Mg Tab) 80 mg PO QAM [facility] Stop: 12/15/20 08:59 Last Admin: 11/15/20 09:26 Dose: 80 mg Documented by: [id number] Insulin Aspart (Insulin Aspart 100 Units/Ml 3 Ml Pen) 0 units SC ACHS [facility] Stop: 12/15/20 07:29 Last Admin: 11/15/20 09:39 Dose: Not Given Documented by: [id number] Cosigned by: [id number] Metoprolol Succinate (Metoprolol Succ 50mg Ext Rel Tab) 100 mg PO BID [facility] Stop: 12/15/20 08:59 Last Admin: 11/15/20 09:25 Dose: 100 mg Documented by: [id number] Sacubitril/Valsartan (Sacubitril-Valsartan 97-103 Mg Tab) 1 tab PO BID [facility] Stop: 12/15/20 08:59 Last Admin: 11/15/20 09:26 Dose: 1 tab Documented by: [id number] Sertraline HCl (Sertraline Hcl 50 Mg Tablet) 50 mg PO DAILY [facility] Stop: 12/15/20 08:59 Last Admin: 11/15/20 09:26 Dose: 50 mg Documented by: [id number] Triamcinolone Acetonide (Triamcinolone Acet Nasal [place] 10.8ml Btl) 1 sprays NA DAILY [facility] Stop: 12/15/20 08:59 Last Admin: 11/15/20 09:26 Dose: 1 sprays Documented by: [id number] Discontinued Medications Magnesium Sulfate/Dextrose (Magnesium Sulfate / D5w) 1 gm in 100 mls @ 50 mls/hr IV Q2H STA Stop: 11/15/20 01:36 Last Infusion: 11/15/20 02:12 Dose: 0 mls/hr Documented by: [id number] Admin: 11/14/20 23:59 Dose: 50 mls/hr Documented by: [id number] Furosemide 80 mg/ Syringe 8 mls @ 4 mls/min IV ONE ONE Stop: 11/15/20 10:31 Last Admin: 11/15/20 11:28 Dose: 4 mls/min Documented by: [id number] Nitroglycerin (Nitroglycerin 2% Ointment 30gm Tube) 1 inch EXT NOW STA Stop: 11/14/20 19:24 Last Admin: 11/14/20 19:46 Dose: 1 inch Documented by: [id number] Perflutren Lipid Microsphere (Perflutren Lipid Microsphere (Definity)) 2 ml IV ONCE ONE Stop: 11/15/20 07:08 Last Admin: 11/15/20 07:08 Dose: 2 ml Documented by: [id number] Potassium Chloride (Potassium Chloride Crtab 20 Meq Tabcr) 40 meq PO NOW STA Stop: 11/15/20 10:00 Last Admin: 11/15/20 11:28 Dose: 40 meq Documented by: [id number] Imaging Data Radiologist's Impression: XR chest 1V portable CLINICAL HISTORY: Atypical chest pain COMPARISON STUDY: 08/26/2020 FINDINGS: The heart is enlarged. There is mild central vascular prominence without evidence of overt failure. There is no lobar consolidation. There are no pleural effusions.[ IMPRESSION: Cardiomegaly. No evidence of focal pulmonary consolidation Discharge Plan Visit Data Chief Complaint: Chest Pain Stated Complaint: CHEST PAIN, DOC REF'D ED Provider: Nikolai Anders Discharge Problem: Precordial chest pain, SOB (shortness of breath), History of coronary artery disease, History of pericarditis Patient Disposition: Admitted As Inpatient Condition: Good Discharge Instructions Interventions: ED Discharge Assessment Last Done: 11/14/20 23:56
--- NOTE | 2020-11-14 19:49 | XRay Report ---
XR chest 1V portable CLINICAL HISTORY: Atypical chest pain COMPARISON STUDY: 08/26/2020 FINDINGS: The heart is enlarged. There is mild central vascular prominence without evidence of overt failure. There is no lobar consolidation. There are no pleural effusions.[ IMPRESSION: Cardiomegaly. No evidence of focal pulmonary consolidation ACT 112: Negative or not required by law. Electronically signed by: Corona العلي M.D. 11/14/2020 7:48 PM
[2020-11-14 19:59] LABS: Basophils # (auto) 0.01 K/uL (0-0.2); Basophils % (auto) 0.1 %; Hematocrit (blood only) 40.3 % (42-52); Hemoglobin 13.4 g/dL (14.0-18.0); Immature Granulocytes # (auto) 0.02 K/uL (0.00-0.02); Immature Granulocytes % (auto) 0.2 %; Lymphocytes # (auto) 0.81 K/uL (1.2-3.4); Lymphocytes % (auto) 7.9 %; Mean Corpuscular Hemoglobin 31.3 pg (25-34); Mean Corpuscular Hgb Conc 33.3 g/dL (32-36); Mean Corpuscular Volume 94.2 fL (80-100); Mean Platelet Volume 10.6 fL (7.4-10.4); Monocytes # (auto) 0.88 K/uL (0.11-0.59); Monocytes % (auto) 8.6 %; Neutrophils # (auto) 8.47 K/uL (1.4-6.5); Neutrophils % (auto) 82.2 %; Platelet Count 229 K/uL (130-400); RDW Coefficient of Variation 15.8 % (11.5-14.5); RDW Standard Deviation 54.5 fL (36.4-46.3); Red Blood Count 4.28 M/uL (4.7-6.1); White Blood Count 10.29 K/uL (4.8-10.8)
[2020-11-14 20:19] LABS: Alanine Aminotransferase 15 U/L (12-78); Albumin Level 3.8 gm/dl (3.4-5.0); Aspartate Aminotransferase 9 U/L (15-37); BUN Creatinine Ratio 16.8 (10-20); Blood Urea Nitrogen 26 mg/dl (7-18); Calcium 9.5 mg/dl (8.5-10.1); Carbon Dioxide 30 mmol/L (21-32); Chloride 106 mmol/L (98-107); Creatinine Clr Calc Pharmacy 52.7 ml/min; Est GFR (African American) 49.7; Est GFR (Non-African American) 42.8; Glucose 112 mg/dl (70-99); Lipase 166 U/L (73-393); Magnesium 1.7 mg/dl (1.8-2.4); Potassium 3.6 mmol/L (3.5-5.1); Sodium 142 mmol/L (136-145)
[2020-11-14 20:24] LABS: Alkaline Phosphatase 121 U/L (45-117); Bilirubin,Total 0.8 mg/dl (0.2-1); Globulin 3.7 gm/dl (2.5-4.0); Total Protein 7.5 gm/dl (6.4-8.2); Troponin I < 0.015 ng/ml (0-0.045)
[2020-11-14] MEDS ORDERED: NITROGLYCERIN SL 0.4 MG/TAB TAB SL PRN (23:03)
--- NOTE | 2020-11-14 23:09 | History & Physical Report ---
Date of Service November 14, 2020 Assessment & Plan (1) Chest pain: 74 yo M PMHx HTN, HLD, CAD s/p stent x3 with resultant ischemic CM with LVEF 20-25%, pericarditis on colchicine, and AFib on Eliquis therapy admitted for chest pain rule out. Atypical chest pain/CAD s/p stent/ischemic CM: -Presents with midsternal chest pain that worsens with deep inspiration. -EKG without changes as compared to last EKG. Initial troponin negative. -CXR without findings suggestive of pneumonia. COVID 19 negative. -Unlikely to be pericarditis as patient's symptoms do not worsen with lying down. -Last Echocardiogram August 2020 with LVEF 20-25% with severe global hypokinesis -Continue Eliquis/Plavix therapy, Entresto, Lasix, colestipol. -Lipid panel and Hgb A1c with AM labs. Trend troponins q8h. -Echocardiogram ordered. -Cardiology consult placed. Depending on results of Echo, patient may be candid ate for AICD. -Optimize electrolytes. AFib: -History of, follows with Dr. Canchola. -On rate control with metoprolol, rhythm control with amiodarone, and is s/p cardioversion one month ago. -Not currently in RVR. -On chronic Eliquis therapy, continue. Pericarditis: -Diagnosed with pericarditis when last admitted in August 2020. At that time was started on colchicine. -No findings on exam suggestive of pericarditis. -Echo and Cardiology consult in the AM as above. -Continue colchicine. DM2: -On metformin therapy. -Hgb A1c in the AM. -SSI while admitted. CKD stage 3b: -History of, with baseline creatinine 1.6. -Creatinine is at baseline this admission, no interventions. Code Status: DNR/DNI FEN: NPO at midnight. DVT ppx: Eliquis Dispo: PCU Telemetry (2) CAD S/P percutaneous coronary angioplasty: (3) Ischemic cardiomyopathy: (4) Major depressive disorder: (5) CKD (chronic kidney disease) stage 3, GFR 30-59 ml/min: (6) Type 2 diabetes mellitus: (7) Hyperlipidemia: (8) Hypertension: History of Present Illness Chief Complaint: chest pain Primary Care Provider: Sohan Lawler MD 74 yo M PMHx HTN, HLD, CAD s/p stent x3, DM2, ischemic CM with LVEF 25%, pericarditis on colchicine, and AFib on Eliquis therapy presented to ER for chest tightness x1 day with deep inspiration, with complaints of dyspnea on exertion since discharge from hospital in August. Was admitted to hospital in August and at that time was found to have significant CAD, and had stent x3 placed by Dr. Peterson. He was also found to have ischemic cardiomyopathy, pericarditis, and AFib that admission. Has been on Eliquis therapy and colchicine since discharge. Was started on amiodarone by Dr. Canchola for rhythm control given dyspnea on exertion felt to be secondary to AFib. When that did not relieve his symptoms he was cardioverted. Today in the ER he had troponin x1 which was negative, EKG without new findings, CXR without pneumonia. Did receive Nitropaste x1 in ER. Given significant and recent cardiac history, hospitalist service was consulted for observation for chest pain rule out ACS. On my interview patient reports no further sensation of chest tightness. No dyspnea at rest or while talking, no dizziness, headaches, abdominal pain, naus ea. No smoking history and no history of lung disease. Allergies Allergy/AdvReac Type Severity Reaction Status Date / Time spironolactone AdvReac Severe Hyperkalemia, Verified 11/14/20 19:38 bradycardia Qbhxkww-Dcl-Iyp Reductase AdvReac Intermediate Myalgias Verified 11/14/20 19:38 Inhibitor Home Medications Medication Instructions Recorded Confirmed Type allopurinol 300 mg tablet 300 mg PO QAM tab 05/11/19 11/14/20 History lliwszkq-xfh-zgxaw acid 300 1 tab PO DAILY 05/11/19 11/14/20 History mcg-lycopene 600 mcg-lutein 300 mcg tablet vitamins A,C,B-zvcv-wzeirf 14,320 1 cap PO BID 05/11/19 11/14/20 History unit-226 mg-200 unit capsule omega 9-mkp-nfp-fish oil 1,000 mg 1 cap PO DAILY 05/20/19 11/14/20 History (120 mg-180 mg) capsule triamcinolone acetonide 55 mcg 1 sprays INTNAS DAILY 03/17/20 11/14/20 History nasal spray aerosol colestipol 2 g PO QPM 08/22/20 11/14/20 History metformin 500 mg PO BIDM #60 tab 08/31/20 11/14/20 Rx nitroglycerin 0.4 mg sublingual 0.4 mg SL Q5M PRN #25 tab 09/06/20 11/14/20 Rx tablet apixaban 5 mg tablet 5 mg PO BID #180 tab 09/20/20 11/14/20 Rx clopidogrel 75 mg tablet 75 mg PO QAM 30 Days #90 tab 09/20/20 11/14/20 Rx amiodarone 200 mg PO HS 10/06/20 11/14/20 History colchicine 0.6 mg PO QAM 10/06/20 11/14/20 History metoprolol succinate 100 mg 100 mg PO BID #180 tab 10/17/20 11/14/20 Rx tablet,extended release 24 hr furosemide 40 mg tablet 80 mg PO QAM #200 tab 11/04/20 11/14/20 Rx sacubitril 97 mg-valsartan 103 mg 1 tab PO BID #180 tab 11/04/20 11/14/20 Rx tablet sertraline 50 mg PO DAILY 11/14/20 11/14/20 History Past Med/Surg History Medical History Arthritis back, knees Atrial fibrillation New onset a. fib 08/2020 in setting of NSTEMI (which resulted in placement of 3 stents) Chronic anticoagulation CKD (chronic kidney disease) stage 3, GFR 30-59 ml/min Coronary artery disease stent x1 (2006), stents x3 (08/2020) Diastolic CHF Newly diagnosed during 03/2020 admission, responded well to diuretics > discharged on diuretics and referred to HF clinic per cardiology records Gout of ankle Hx of myocardial infarction 2006, NSTEMI (08/2020 > 3 stents) Hyperlipidemia Hypertension Ischemic cardiomyopathy Low back pain Lyme disease hx of 2018 Major depressive disorder Obesity Pulmonary embolism 5+ years ago Type 2 diabetes mellitus NIDDM Surgical History History of prostate biopsy S/P coronary artery stent placement stent x1 (2006), stents x3 (08/2020) Family History Family/Other Prostate cancer Father Heart disease Mother Bone cancer Sister Colon cancer Social History Smoking Status: Never smoker Second Hand Exposure: No; Do You Dip or Chew Tobacco: No; Tobacco Cessation Education Requested by Patient: No Hx Alcohol Use: Yes Alcohol type: wine Hx Substance Use: No Preferred Language: Gibraltarian Communication Ability: Effective Media Theorist And Author Of Required: No Beliefs That Will Affect Care: Latter-Day Latter-Day Beliefs: JEWISH marital status: Single Current Living Situation: Alone current occupational status: retired Other Information That Helps Us Care for You: No Feels Safe at Home: Yes Safety Concerns: Feels Safe At This Time Diet Comment: Has special diet unsure what kind Assistive Devices: Glasses Review of Systems Review of Systems: All systems reviewed & are unremarkable except as noted in HPI & below (Note ROS at time of my interview) Constitutional: no fever, no chills and no malaise Respiratory: no cough and no dyspnea Cardiovascular: no chest pain, no palpitations and no edema Gastrointestinal: no abdominal pain, no constipation and no diarrhea/loose stools Physical Exam Constitutional: WD/WN, vitals as above Eyes: PERRL, conjunctivae normal, anicteric sclerae ENMT: external ear and nose normal, oropharynx normal Neck: normal visual inspection Respiratory: normal respiratory effort, lungs clear to auscultation Cardiovascular: Rate/Rhythm: regular rate and regular rhythm Heart Sounds: no murmur Extremities: + edema (1+ bilateral LE) Gastrointestinal (Abdomen): normal bowel sounds, soft, nontender, no hepatosplenomegaly Musculoskeletal: no cyanosis or clubbing, extremities motor strength 5/5 Skin: no rashes, warm and dry Neurologic: AAOx3, normal speech. Moves all extremities equally. Psychiatric: A+Ox3, euthymic affect Results & Data Results & Data ([facility]) Vital Signs (Past 12 Hours) Vital Signs Temp Pulse Pulse Resp BP BP Pulse Ox 11/14/20 22:20 72 21 92 11/14/20 22:15 72 20 134/74 91 11/14/20 22:00 72 20 129/79 91 11/14/20 21:45 72 14 116/74 91 11/14/20 21:30 72 19 132/84 92 11/14/20 21:15 73 21 136/79 93 11/14/20 21:00 67 20 113/70 91 11/14/20 20:45 70 19 119/70 92 11/14/20 20:30 73 20 112/79 92 11/14/20 20:15 70 20 133/87 91 11/14/20 20:00 71 20 134/88 93 11/14/20 19:50 72 72 17 138/86 132/93 95 11/14/20 19:48 95 11/14/20 17:08 36.2 C L 78 20 126/82 93 Laboratory Results Lab Results 11/14/20 11/14/20 11/14/20 Range/Units 19:51 19:51 22:10 WBC 10.29 (4.8-10.8) K/uL RBC 4.28 L (4.7-6.1) M/uL Hgb 13.4 L (14.0-18.0) g/dL Hct 40.3 L (42-52) % MCV 94.2 (80-100) fL MCH 31.3 (25-34) pg MCHC 33.3 (32-36) g/dL RDW Std Deviation 54.5 H (36.4-46.3) fL RDW Coeff of Jeff 15.8 H (11.5-14.5) % Plt Count 229 (130-400) K/uL MPV 10.6 H (7.4-10.4) fL Immature Gran % (Auto) 0.2 % Neut % (Auto) 82.2 % Lymph % (Auto) 7.9 % Lake % (Auto) 8.6 % Eos % (Auto) 1.0 % Baso % (Auto) 0.1 % Neut # (Auto) 8.47 H (1.4-6.5) K/uL Lymph # (Auto) 0.81 L (1.2-3.4) K/uL Lake # (Auto) 0.88 H (0.11-0.59) K/uL Eos # (Auto) 0.10 (0-0.5) K/uL Baso # (Auto) 0.01 (0-0.2) K/uL Immature Gran # (Auto) 0.02 (0.00-0.02) K/uL Sodium 142 (136-145) mmol/L Potassium 3.6 (3.5-5.1) mmol/L Chloride 106 (98-107) mmol/L Carbon Dioxide 30 (21-32) mmol/L Anion Gap 6.0 (3-11) BUN 26 H (7-18) mg/dl Creatinine 1.55 H (0.6-1.4) mg/dl Est Cr Clr Drug Dosing 52.7 ml/min Est GFR ( Amer) 49.7 Est GFR (Non-Af Amer) 42.8 BUN/Creatinine Ratio 16.8 (10-20) Glucose 112 H (70-99) mg/dl Calcium 9.5 (8.5-10.1) mg/dl Magnesium 1.7 L (1.8-2.4) mg/dl Total Bilirubin 0.8 (0.2-1) mg/dl AST 9 L (15-37) U/L ALT 15 (12-78) U/L Alkaline Phosphatase 121 H (45-117) U/L Troponin I < 0.015 (0-0.045) ng/ml Total Protein 7.5 (6.4-8.2) gm/dl Albumin 3.8 (3.4-5.0) gm/dl Globulin 3.7 (2.5-4.0) gm/dl Albumin/Globulin Ratio 1.0 (0.9-2) Lipase 166 (73-393) U/L COVID-19 Eval Order Covid19 IDNow atMVAC SARS-CoV-2, RNA, NAAT (NEGATIVE) 11/14/20 Range/Units 22:10 WBC (4.8-10.8) K/uL RBC (4.7-6.1) M/uL Hgb (14.0-18.0) g/dL Hct (42-52) % MCV (80-100) fL MCH (25-34) pg MCHC (32-36) g/dL RDW Std Deviation (36.4-46.3) fL RDW Coeff of Jeff (11.5-14.5) % Plt Count (130-400) K/uL MPV (7.4-10.4) fL Immature Gran % (Auto) % Neut % (Auto) % Lymph % (Auto) % Lake % (Auto) % Eos % (Auto) % Baso % (Auto) % Neut # (Auto) (1.4-6.5) K/uL Lymph # (Auto) (1.2-3.4) K/uL Lake # (Auto) (0.11-0.59) K/uL Eos # (Auto) (0-0.5) K/uL Baso # (Auto) (0-0.2) K/uL Immature Gran # (Auto) (0.00-0.02) K/uL Sodium (136-145) mmol/L Potassium (3.5-5.1) mmol/L Chloride (98-107) mmol/L Carbon Dioxide (21-32) mmol/L Anion Gap (3-11) BUN (7-18) mg/dl Creatinine (0.6-1.4) mg/dl Est Cr Clr Drug Dosing ml/min Est GFR ( Amer) Est GFR (Non-Af Amer) BUN/Creatinine Ratio (10-20) Glucose (70-99) mg/dl Calcium (8.5-10.1) mg/dl Magnesium (1.8-2.4) mg/dl Total Bilirubin (0.2-1) mg/dl AST (15-37) U/L ALT (12-78) U/L Alkaline Phosphatase (45-117) U/L Troponin I (0-0.045) ng/ml Total Protein (6.4-8.2) gm/dl Albumin (3.4-5.0) gm/dl Globulin (2.5-4.0) gm/dl Albumin/Globulin Ratio (0.9-2) Lipase (73-393) U/L COVID-19 Eval Order SARS-CoV-2, RNA, NAAT NEGATIVE (NEGATIVE) Diagnostic Findings XR chest 1V portable CLINICAL HISTORY: Atypical chest pain COMPARISON STUDY: 08/26/2020 FINDINGS: The heart is enlarged. There is mild central vascular prominence without evidence of overt failure. There is no lobar consolidation. There are no pleural effusions.[ IMPRESSION: Cardiomegaly. No evidence of focal pulmonary consolidation ACT 112: Negative or not required by law. Electronically signed by: Corona العلي M.D. 11/14/2020 7:48 PM Dictated: 11/14/[id number]: 11/14/201946 Code Status & VTE Plan VTE Prophylaxis Plan VTE Prophylaxis will be ordered: Yes Supervising Physician Co-Signing Physician Notes Patient seen and examined, chart reviewed, case discussed with Dr. Jorgensen and I agree with her assessment and plan as documented above. Briefly, patient is a 75yo male with history of DM/HTN/HLP and CAD s/p PCI in August 2020 - mid LAD, RCA and mid-late LAD, circumflex. Ischemic cardiomyopathy with EF of 20-25%, Atrial fibrillation on Eliquis presenting with chest discomfort. Troponin unremarkable EKG unchanged History of pericarditis on colchicine On exam he is afebrile, HD stable, NAD, hard of hearing Skin - no rash HEENT - NC/AT, PERRL Heart - +S1/S2, regular Lungs - CTA Abd - +BS, soft, NT/ND Ext - No edema Labs and images reviewed Assessment/Plan - 75yo male with history of CAD, pericarditis, ICM presenting with atypical CP -Telemetry monitoring -Trend troponin -Repeat Echo - hopefully patient will have improvement in EF with current CHF regimen -Cardiology consultation appreciated -Remainder of plan as above Resident Activity Tracking Resident Involvement: Resident Care Provided Care Provided: Adult Hospital Medicine (1) Major depressive disorder Active/Remission status: currently active Major depression episode severity: unspecified Major depression recurrence: unspecified whether recurrent Qualified Code(s): F32.9 - Major depressive disorder, single episode, unspecified (2) Type 2 diabetes mellitus Chronic kidney disease stage: stage 3 (moderate) Chronic kidney disease stage 3 subtype: stage 3b (GFR 30-44) Diabetes mellitus complication detail: with chronic kidney disease Diabetes mellitus complication status: with kidney complications Diabetes mellitus tank terminal gauger insulin use: without tank terminal gauger use Qualified Code(s): E11.22 - Type 2 diabetes mellitus with diabetic chronic kidney disease; N18.32 - Chronic kidney disease, stage 3b (3) CKD (chronic kidney disease) stage 3, GFR 30-59 ml/min Chronic kidney disease stage 3 subtype: stage 3b (GFR 30-44) Qualified Code(s): N18.32 - Chronic kidney disease, stage 3b (4) Hyperlipidemia Hyperlipidemia type: unspecified Qualified Code(s): E78.5 - Hyperlipidemia, unspecified (5) Chest pain Chest pain type: unspecified Qualified Code(s): R07.9 - Chest pain, unspecified (6) Hypertension Hypertension type: essential hypertension Qualified Code(s): I10 - Essential (primary) hypertension
[2020-11-14] MEDS ORDERED: MAGNESIUM SULFATE / D5W 1 GM/100 ML BAG IV STA (23:37)
[2020-11-15] MEDS ORDERED: GLUCOSE 10 TABS/TUBE PO PRN (00:47)
[2020-11-15] MEDS ORDERED: GLUCAGON FOR INJ 1 MG VIAL SQ PRN (00:47)
[2020-11-15] MEDS ORDERED: ACETAMINOPHEN 325 MG TAB PO PRN (00:47)
[2020-11-15] MEDS ORDERED: DEXTROSE 50% 50 ML SYRINGE IV PRN (00:47)
[2020-11-15] MEDS ORDERED: GLUCOSE 40% GEL 15 GM TUBE PO PRN (00:47)
[2020-11-15] MEDS ORDERED: CARBOHYDRATES FOR HYPOGLYCEMIA PO PRN (00:47)
--- NOTE | 2020-11-15 02:29 | Billing Data ---
Date of Service November 14, 2020 Coding Level of Care Code 40860 OBS Care - Level 3
[2020-11-15 04:37] LABS: Basophils # (auto) 0.01 K/uL (0-0.2); Basophils % (auto) 0.1 %; Eosinophils # (auto) 0.13 K/uL (0-0.5); Eosinophils % (auto) 1.6 %; Hematocrit (blood only) 35.5 % (42-52); Hemoglobin 11.4 g/dL (14.0-18.0); Immature Granulocytes # (auto) 0.02 K/uL (0.00-0.02); Immature Granulocytes % (auto) 0.2 %; Lymphocytes # (auto) 0.77 K/uL (1.2-3.4); Lymphocytes % (auto) 9.4 %; Mean Corpuscular Hemoglobin 30.5 pg (25-34); Mean Corpuscular Hgb Conc 32.1 g/dL (32-36); Mean Corpuscular Volume 94.9 fL (80-100); Mean Platelet Volume 10.4 fL (7.4-10.4); Monocytes # (auto) 0.71 K/uL (0.11-0.59); Monocytes % (auto) 8.7 %; Neutrophils # (auto) 6.53 K/uL (1.4-6.5); Platelet Count 197 K/uL (130-400); RDW Coefficient of Variation 15.9 % (11.5-14.5); RDW Standard Deviation 55.3 fL (36.4-46.3); Red Blood Count 3.74 M/uL (4.7-6.1); White Blood Count 8.17 K/uL (4.8-10.8)
[2020-11-15 04:54] LABS: BUN Creatinine Ratio 18.2 (10-20); Calcium 8.6 mg/dl (8.5-10.1); Creatinine Clr Calc Pharmacy 59.2 ml/min; Est GFR (African American) 57.7; Est GFR (Non-African American) 49.7; Potassium 3.4 mmol/L (3.5-5.1)
[2020-11-15 04:59] LABS: Troponin I 0.018 ng/ml (0-0.045)
[2020-11-15 06:15] LABS: Estimated Average Glucose 120 mg/dl; Hemoglobin A1C 5.8 % (4.5-5.6)
[2020-11-15] MEDS ORDERED: PERFLUTREN LIPID MICROSPHERE (DEFINITY) IV ONE (07:07)
[2020-11-15] MEDS ORDERED: SERTRALINE HCL 50 MG TABLET PO SCH (09:00)
[2020-11-15] MEDS ORDERED: allopurinoL 300 MG TAB PO SCH (09:00)
[2020-11-15] MEDS ORDERED: SACUBITRIL-VALSARTAN 97-103 MG TAB PO SCH (09:00)
[2020-11-15] MEDS ORDERED: METOPROLOL SUCC 50MG EXT REL TAB PO SCH (09:00)
[2020-11-15] MEDS ORDERED: CLOPIDOGREL BISULFATE 75 MG TAB PO SCH (09:00)
[2020-11-15] MEDS ORDERED: FUROSEMIDE 80 MG TAB PO SCH (09:00)
[2020-11-15] MEDS ORDERED: APIXABAN 5 MG TABLET PO SCH (09:00)
[2020-11-15] MEDS ORDERED: TRIAMCINOLONE ACET NASAL SPRAY 10.8ML BTL SCH (09:00)
[2020-11-15] MEDS ORDERED: COLCHICINE 0.6 MG TAB PO SCH (09:00)
[2020-11-15] MEDS: INSULIN ASPART 100 UNITS/ML 3 ML PEN SC SCH ×2 (09:39→12:40)
[2020-11-15] MEDS ORDERED: POTASSIUM CHLORIDE CRTAB 20 MEQ TABCR PO STA (09:59)
--- NOTE | 2020-11-15 10:14 | Cardiology Consultation ---
Date of Consultation November 15, 2020 Assessment & Plan (1) Chest pain: (2) CAD, multiple vessel: (3) Ischemic cardiomyopathy: (4) Paroxysmal atrial fibrillation: (5) Chronic anticoagulation: (6) Chronic systolic heart failure: (7) S/P coronary artery stent placement: (8) Hypertension: ASSESSMENT/PLAN: 1. Chest pain: Atypical. Pleuritic in nature. Not consistent with ischemic etiology. Already on treatment for pericarditis with colchicine at home. Symptoms have resolved without intervention or change in therapy. No further cardiac assessment or change in therapy necessary at this time in this regard. 2. Chronic systolic CHF: He appears hypervolemic and has class 3 symptoms, chronically. Continue home dose of diuretic. Give Lasix 80 mg IV x1. Otherwise, continue home regimen for now which has been titrated as an outpatient. Low-sodium diet. Daily weights. Following heart failure program closely. Did not tolerate spironolactone according to record. Depending on the intolerant, could consider eplerenone. 3. Ischemic cardiomyopathy: LV systolic function has improved since August. Continue current regimen and has repeat echo as an outpatient scheduled next month to determine if he qualifies for ICD for primary prevention following optimal therapy. Continue beta-ruby and Entresto. 4. Paroxysmal atrial fibrillation s/p Cardioversion Oct 2020: In sinus rhythm. On anticoagulation for stroke risk reduction. Continue beta-ruby. On amiodarone. 5. CAD s/p multivessel PCI: Symptoms inconsistent with ischemic heart disease. Continue Plavix 75 mg daily. Continue beta-ruby. Intolerant to statin therapy according to records. 6. Hypertension: Blood pressure has been well controlled. Continue current regimen. 7. Disposition: Can be discharged later today from a cardiac standpoint if no new issues. Close follow-up with heart failure program. Continue to follow-up with primary production specialist, Dr. Canchola. Patient care discussed with Dr. Hawk of the primary hospitalist service. 50 minute visit including discussion with patient, coordinating care with heart failure program (Ms Kennedy) and primary service (Dr. Hawk), chart review, record review, and chart completion. Thank you for allowing me to participate in the care of your patient. Please call for any other questions or concerns. Sincerely, Chino Bentley M.D. History of Present Illness Reason for Consultation: CAD s/p PCI x 3. Ischemic cardiomyopathy. Pericarditis. Requesting Physician: Dr. Jacobsen Attending Physician: Laurent Hawk MD History of Present Illness Mr. Peterson is a pleasant 75-year-old gentleman with a history significant for CAD status post anterior [place] in August of 2007, multivessel PCI, paroxysmal Atrial fibrillation s/p DC cardioversion, ischemic cardiomyopathy, type 2 diabetes, hypertension, dyslipidemia intolerant to statin therapy, and pulmonary embolism. His primary production specialist is Dr. Canchola and Mr. Galeana. He is followed in the Heart Failure Program with Ms. Lee Ann Kennedy. He was hospitalized in August of 2020 with myocardial infarction and underwent PCI of distal RCA to proximal PDA with 3 x 22 mm milena, mid LAD with 2.75 x 15 mm milena, and distal circumflex with 2.75 x 15 mm Xience. His RCA lesion was felt to be the culprit lesion and left to right collaterals are noted. He also underwent echocardiogram which demonstrated severely reduced LV systolic function with an EF of 20-25% and mildly reduced RV systolic function with moderate MR. For atrial fibrillation, he underwent cardioversion on 10/11/2020 and has been on amiodarone and anticoagulation therapy. He has been treated for pericarditis and continues to take colchicine. He was admitted on 11/14/2020 with chest discomfort. He describes the chest discomfort as a tightness across his chest. It is pleuritic in nature, only occurring with inspiration. It began acutely yesterday at 11:00 a.m. while sitting and has since resolved. It is nonexertional. His troponins have remained unremarkable. He has had dyspnea with exertion chronically since his hospitalization in August of 2020, but no recent worsening. In fact, exercise tolerance has improved with titration of outpatient medications. He denies shortness of breath at rest, orthopnea, syncope, near-syncope, palpitations. He has chronic lower extremity edemabut believes it is no worse than usual. He maintains a low-sodium diet and weighs himself approximately 3 days per week. He states that his weight has been stable at home. He denies bleeding such as melena, hematochezia, or hematuria. He has an outpatient echo pending in December following titration of his medications. He states that Entresto was recently increased to the high dose and he is tolerating it well. Review of systems: As above. Review of systems otherwise negative/unremarkable. Family history: Father at the age of 60 from [place]. Mother had [place] at the age of 64 but of cancer. Social history: Denies tobacco, alcohol, or drug abuse. He has not been . No children. Lives alone. He is unaccompanied. Allergies Allergy/AdvReac Type Severity Reaction Status Date / Time spironolactone AdvReac Severe Hyperkalemia, Verified 11/14/20 19:38 bradycardia Xuguseg-Bgs-Tud Reductase AdvReac Intermediate Myalgias Verified 11/14/20 19:38 Inhibitor Home Medications Medication Instructions Recorded Confirmed Type allopurinol 300 mg tablet 300 mg PO QAM tab 05/11/19 11/14/20 History vkynhizu-nti-qeqvw acid 300 1 tab PO DAILY 05/11/19 11/14/20 History mcg-lycopene 600 mcg-lutein 300 mcg tablet vitamins A,C,D-dmce-hoifpb 14,320 1 cap PO BID 05/11/19 11/14/20 History unit-226 mg-200 unit capsule omega 2-qiv-mdm-fish oil 1,000 mg 1 cap PO DAILY 05/20/19 11/14/20 History (120 mg-180 mg) capsule triamcinolone acetonide 55 mcg 1 sprays INTNAS DAILY 03/17/20 11/14/20 History nasal spray aerosol colestipol 2 g PO QPM 08/22/20 11/14/20 History metformin 500 mg PO BIDM #60 tab 08/31/20 11/14/20 Rx nitroglycerin 0.4 mg sublingual 0.4 mg SL Q5M PRN #25 tab 09/06/20 11/14/20 Rx tablet apixaban 5 mg tablet 5 mg PO BID #180 tab 09/20/20 11/14/20 Rx clopidogrel 75 mg tablet 75 mg PO QAM 30 Days #90 tab 09/20/20 11/14/20 Rx amiodarone 200 mg PO HS 10/06/20 11/14/20 History colchicine 0.6 mg PO QAM 10/06/20 11/14/20 History metoprolol succinate 100 mg 100 mg PO BID #180 tab 10/17/20 11/14/20 Rx tablet,extended release 24 hr furosemide 40 mg tablet 80 mg PO QAM #200 tab 11/04/20 11/14/20 Rx sacubitril 97 mg-valsartan 103 mg 1 tab PO BID #180 tab 11/04/20 11/14/20 Rx tablet sertraline 50 mg PO DAILY 11/14/20 11/14/20 History Patient History Medical History Arthritis back, knees Atrial fibrillation New onset a. fib 08/2020 in setting of NSTEMI (which resulted in placement of 3 stents) Chronic anticoagulation Chronic systolic heart failure CKD (chronic kidney disease) stage 3, GFR 30-59 ml/min Coronary artery disease stent x1 (2006), stents x3 (08/2020) Diastolic CHF Newly diagnosed during 03/2020 admission, responded well to diuretics > discharged on diuretics and referred to HF clinic per cardiology records Gout of ankle Hx of myocardial infarction 2006, NSTEMI (08/2020 > 3 stents) Hyperlipidemia Hypertension Ischemic cardiomyopathy Low back pain Lyme disease hx of 2018 Major depressive disorder Obesity Paroxysmal atrial fibrillation Pulmonary embolism 5+ years ago Type 2 diabetes mellitus NIDDM Surgical History History of prostate biopsy S/P coronary artery stent placement stent x1 (2006), stents x3 (08/2020) Family History Family/Other Prostate cancer Father Heart disease Mother Bone cancer Sister Colon cancer Social History Smoking Status: Never smoker Second Hand Exposure: No; Do You Dip or Chew Tobacco: No; Tobacco Cessation Education Requested by Patient: No Hx Alcohol Use: Yes Alcohol type: wine Hx Substance Use: No Preferred Language: German Communication Ability: Effective Strip Polisher Required: No Beliefs That Will Affect Care: Buddhist Buddhist Beliefs: TAOISM marital status: Single Current Living Situation: Alone current occupational status: retired Other Information That Helps Us Care for You: No Feels Safe at Home: Yes Safety Concerns: Feels Safe At This Time Diet Comment: Has special diet unsure what kind Assistive Devices: Glasses Physical Exam Physical Exam: Gen.: No acute distress. Alert and oriented. HEENT: Anicteric sclera. Neck: No appreciable JVD. No bruits. Normal carotid upstrokes bilaterally. Cardiac: PMI was nondisplaced. No ventricular heave. Regular. Normal S1-S2. No murmurs, rubs, or gallops. Pulmonary: Clear to auscultation bilaterally without wheezes, rales, or rhonchi. Abdomen: Soft, nontender, nondistended, with normoactive bowel sounds. No bruits noted. Extremities: 2+ radial pulses bilaterally. 2+ posterior tibialis pulses bilaterally. 1 to 2+ right lower extremity edema. 2+ left lower extremity edema. No cyanosis. Psychiatric: Affect appears appropriate. Results & Data ([facility]) Vital Signs (Past 12 Hours) Vital Signs Temp Pulse Pulse Resp BP BP Pulse Ox 11/15/20 08:05 36.9 C 73 16 143/82 H 98 11/15/20 03:00 36.4 C L 70 20 119/69 90 11/15/20 00:15 36.4 C L 75 22 130/82 93 11/14/20 23:31 70 18 91 11/14/20 23:30 71 26 H 130/76 92 11/14/20 23:15 71 20 126/77 90 11/14/20 23:01 72 21 92 11/14/20 23:00 66 22 125/78 93 11/14/20 22:45 75 20 139/88 93 11/14/20 22:31 75 20 93 11/14/20 22:30 74 21 131/72 92 11/14/20 22:20 72 21 92 11/14/20 22:15 72 20 134/74 91 Intake & Output 11/13/20 11/14/20 11/15/20 11/16/20 06:59 06:59 06:59 06:59 Intake Total 100 / 100 Balance 100 / 100 Weight 269 lb 13.533 oz Laboratory Results Laboratory Results - last 24 hr 11/14/20 11/14/20 11/14/20 19:51 19:51 22:10 WBC 10.29 RBC 4.28 L Hgb 13.4 L Hct 40.3 L MCV 94.2 MCH 31.3 MCHC 33.3 RDW Std Deviation 54.5 H RDW Coeff of Jeff 15.8 H Plt Count 229 MPV 10.6 H Immature Gran % (Auto) 0.2 Neut % (Auto) 82.2 Lymph % (Auto) 7.9 Dougherty % (Auto) 8.6 Eos % (Auto) 1.0 Baso % (Auto) 0.1 Neut # (Auto) 8.47 H Lymph # (Auto) 0.81 L Dougherty # (Auto) 0.88 H Eos # (Auto) 0.10 Baso # (Auto) 0.01 Immature Gran # (Auto) 0.02 Sodium 142 Potassium 3.6 Chloride 106 Carbon Dioxide 30 Anion Gap 6.0 BUN 26 H Creatinine 1.55 H Est Cr Clr Drug Dosing 52.7 Est GFR ( Amer) 49.7 Est GFR (Non-Af Amer) 42.8 BUN/Creatinine Ratio 16.8 Glucose 112 H POC Glucose Estimat Average Glucose Hemoglobin A1c Calcium 9.5 Magnesium 1.7 L Total Bilirubin 0.8 AST 9 L ALT 15 Alkaline Phosphatase 121 H Troponin I < 0.015 Total Protein 7.5 Albumin 3.8 Globulin 3.7 Albumin/Globulin Ratio 1.0 Triglycerides Cholesterol LDL Cholesterol, Calc VLDL Cholesterol, Calc HDL Cholesterol Cholesterol/HDL Ratio Lipase 166 COVID-19 Eval Order Covid19 IDNow On license of [facility] SARS-CoV-2, RNA, NAAT 11/14/20 11/15/20 11/15/20 22:10 04:14 04:14 WBC 8.17 RBC 3.74 L Hgb 11.4 L Hct 35.5 L MCV 94.9 MCH 30.5 MCHC 32.1 RDW Std Deviation 55.3 H RDW Coeff of Jeff 15.9 H Plt Count 197 MPV 10.4 Immature Gran % (Auto) 0.2 Neut % (Auto) 80.0 Lymph % (Auto) 9.4 Dougherty % (Auto) 8.7 Eos % (Auto) 1.6 Baso % (Auto) 0.1 Neut # (Auto) 6.53 H Lymph # (Auto) 0.77 L Dougherty # (Auto) 0.71 H Eos # (Auto) 0.13 Baso # (Auto) 0.01 Immature Gran # (Auto) 0.02 Sodium Potassium Chloride Carbon Dioxide Anion Gap BUN Creatinine Est Cr Clr Drug Dosing Est GFR ( Amer) Est GFR (Non-Af Amer) BUN/Creatinine Ratio Glucose POC Glucose Estimat Average Glucose Hemoglobin A1c Calcium Magnesium Total Bilirubin AST ALT Alkaline Phosphatase Troponin I Cancelled Total Protein Albumin Globulin Albumin/Globulin Ratio Triglycerides Cholesterol LDL Cholesterol, Calc VLDL Cholesterol, Calc HDL Cholesterol Cholesterol/HDL Ratio Lipase COVID-19 Eval Order SARS-CoV-2, RNA, NAAT NEGATIVE 11/15/20 11/15/20 11/15/20 04:14 04:14 07:04 WBC RBC Hgb Hct MCV MCH MCHC RDW Std Deviation RDW Coeff of Jeff Plt Count MPV Immature Gran % (Auto) Neut % (Auto) Lymph % (Auto) Dougherty % (Auto) Eos % (Auto) Baso % (Auto) Neut # (Auto) Lymph # (Auto) Dougherty # (Auto) Eos # (Auto) Baso # (Auto) Immature Gran # (Auto) Sodium 144 Potassium 3.4 L Chloride 110 H Carbon Dioxide 32 Anion Gap 2.0 L BUN 25 H Creatinine 1.37 Est Cr Clr Drug Dosing 59.2 Est GFR ( Amer) 57.7 Est GFR (Non-Af Amer) 49.7 BUN/Creatinine Ratio 18.2 Glucose 124 H POC Glucose 128 H Estimat Average Glucose 120 Hemoglobin A1c 5.8 H Calcium 8.6 Magnesium Total Bilirubin AST ALT Alkaline Phosphatase Troponin I 0.018 Total Protein Albumin Globulin Albumin/Globulin Ratio Triglycerides 108 Cholesterol 122 LDL Cholesterol, Calc 58 VLDL Cholesterol, Calc 22 HDL Cholesterol 42 Cholesterol/HDL Ratio 3 Lipase COVID-19 Eval Order SARS-CoV-2, RNA, NAAT Diagnostic Findings Chest x-ray 11/14/2020: No consolidation. Telemetry personally reviewed: Sinus rhythm. No arrhythmia. Echo 11/15/2020: Moderately reduced LV systolic function. EF 35-40%. Mild to moderate MR. (see full report for details) ECGs personally reviewed: ECG 11/14/2020: Sinus rhythm first-degree AV block. 72 beats per minute. Inferior infarct. Anterior infarct. ECG 11/15/2020: Sinus rhythm first-degree AV block 63 beats per minute. Inferior [place]. Anterior [place]. Cardiac catheterization reports reviewed from August 2020 as noted above in HPI. Medications Administered Current Inpatient Medications Acetaminophen (Acetaminophen 325 Mg Tab) 650 mg PO Q4H PRN PRN Reason: Pain or Fever Stop: 12/15/20 00:46 Allopurinol (Allopurinol 300 Mg Tab) 300 mg PO QAM [facility] Stop: 12/15/20 08:59 Last Admin: 11/15/20 09:25 Dose: 300 mg Documented by: Amiodarone HCl (Amiodarone 200 Mg Tab) 200 mg PO HS [facility] Stop: 12/15/20 20:59 Apixaban (Apixaban 5 Mg Tablet) 5 mg PO BID [facility] Stop: 12/15/20 08:59 Last Admin: 11/15/20 09:26 Dose: 5 mg Documented by: Clopidogrel Bisulfate (Clopidogrel Bisulfate 75 Mg Tab) 75 mg PO QAM [facility] Stop: 12/15/20 08:59 Last Admin: 11/15/20 09:25 Dose: 75 mg Documented by: Colchicine (Colchicine 0.6 Mg Tab) 0.6 mg PO QAM [facility] Stop: 12/15/20 08:59 Last Admin: 11/15/20 09:25 Dose: 0.6 mg Documented by: Colestipol HCl (Colestipol Hcl 1 Gm Tab) 2 gm PO DAILY@2200 [facility] Stop: 12/15/20 21:59 Dextrose (Dextrose 50% 50 Ml Syringe) 25 - 50 ml IV UD PRN; Protocol PRN Reason: Hypoglycemia Protocol Stop: 12/15/20 00:46 Furosemide (Furosemide 80 Mg Tab) 80 mg PO QAM [facility] Stop: 12/15/20 08:59 Last Admin: 11/15/20 09:26 Dose: 80 mg Documented by: Glucagon (Glucagon For Inj 1 Mg Vial) 1 mg SQ UD PRN; Protocol PRN Reason: Hypoglycemia Protocol Stop: 12/15/20 00:46 Glucose (Glucose 10 Tabs/Tube) 4 - 8 tabs PO UD PRN; Protocol PRN Reason: Hypoglycemia Protocol Stop: 12/15/20 00:46 Glucose (Glucose 40% Gel 15 Gm Tube) 15 - 30 gm PO UD PRN; Protocol PRN Reason: Hypoglycemia Protocol Stop: 12/15/20 00:46 Insulin Aspart (Insulin Aspart 100 Units/Ml 3 Ml Pen) 0 units SC ACHS [facility] Stop: 12/15/20 07:29 Last Admin: 11/15/20 09:39 Dose: Not Given Documented by: Metoprolol Succinate (Metoprolol Succ 50mg Ext Rel Tab) 100 mg PO BID [facility] Stop: 12/15/20 08:59 Last Admin: 11/15/20 09:25 Dose: 100 mg Documented by: Miscellaneous (Carbohydrates For Hypoglycemia ) 15 - 30 gm PO UD PRN PRN Reason: Hypoglycemia Protocol Stop: 12/15/20 00:46 Nitroglycerin (Nitroglycerin Sl 0.4 Mg/Tab Tab) 0.4 mg SL UD PRN PRN Reason: Chest Pain Stop: 12/14/20 23:02 Sacubitril/Valsartan (Sacubitril-Valsartan 97-103 Mg Tab) 1 tab PO BID [facility] Stop: 12/15/20 08:59 Last Admin: 11/15/20 09:26 Dose: 1 tab Documented by: Sertraline HCl (Sertraline Hcl 50 Mg Tablet) 50 mg PO DAILY [facility] Stop: 12/15/20 08:59 Last Admin: 11/15/20 09:26 Dose: 50 mg Documented by: Triamcinolone Acetonide (Triamcinolone Acet Nasal [facility] 10.8ml Btl) 1 sprays NA DAILY [facility] Stop: 12/15/20 08:59 Last Admin: 11/15/20 09:26 Dose: 1 sprays Documented by: PG Care Time/CCT Total # of Minutes Spent Total Time Spent with Patient: Total time spent is greater than 50% in coordination of care (as documented) at patient's floor/unit and/or counseling patient: Coding Level of Care Code 04487 Office/Outpt Visit, Est Diagnoses Chest pain R07.9 Chest pain type: unspecified CAD, multiple vessel I25.10 Ischemic cardiomyopathy I25.5 Paroxysmal atrial fibrillation I48.0 Chronic anticoagulation Z79.01 Chronic systolic heart failure I50.22 S/P coronary artery stent placement Z95.5 Hypertension I10 Hypertension type: essential hypertension (1) Chest pain Chest pain type: unspecified Qualified Code(s): R07.9 - Chest pain, unspecified (2) Hypertension Hypertension type: essential hypertension Qualified Code(s): I10 - Essential (primary) hypertension
[2020-11-15] MEDS ORDERED: FUROSEMIDE 80 MG in SYRINGE 0 ML IV ONE (10:30)
--- NOTE | 2020-11-15 10:44 | XCELERA ---
[id number] \\[email or web address]\[id number]
--- NOTE | 2020-11-15 17:30 | Discharge Summary ---
Date of Service November 15, 2020 Admission HPI Per Admitting Provider 74 yo M PMHx HTN, HLD, CAD s/p stent x3, DM2, ischemic CM with LVEF 25%, pericarditis on colchicine, and AFib on Eliquis therapy presented to ER for chest tightness x1 day with deep inspiration, with complaints of dyspnea on exertion since discharge from hospital in August. Was admitted to hospital in August and at that time was found to have significant CAD, and had stent x3 placed by Dr. Peterson. He was also found to have ischemic cardiomyopathy, pericarditis, and AFib that admission. Has been on Eliquis therapy and colchicine since discharge. Was started on amiodarone by Dr. Canchola for rhythm control given dyspnea on exertion felt to be secondary to AFib. When that did not relieve his symptoms he was cardioverted. Today in the ER he had troponin x1 which was negative, EKG without new findings, CXR without pneumonia. Did receive Nitropaste x1 in ER. Given significant and recent cardiac history, hospitalist service was consulted for observation for chest pain rule out ACS. On my interview patient reports no further sensation of chest tightness. No dyspnea at rest or while talking, no dizziness, headaches, abdominal pain, nausea. No smoking history and no history of lung disease. Principal Diagnosis Non-cardiac chest pain Discharge Exam Constitutional WD/WN, vitals as above Eyes EOM intact bilaterally; no conjunctival abnormality ENMT external ear and nose normal, oropharynx normal Neck trachea midline, no thyromegaly normal visual inspection Respiratory normal respiratory effort, lungs clear to auscultation no respiratory distress Cardiovascular RRR, no murmur, no edema Gastrointestinal (Abdomen) Inspection/Auscultation: abdomen normal to inspection; abdomen not distended Musculoskeletal no cyanosis or clubbing, extremities motor strength 5/5 Skin no rashes, warm and dry Neurologic moves all extremities and awake Psychiatric Orientation: alert, oriented to person and cooperative Discharge Data Allergies Allergy/AdvReac Type Severity Reaction Status Date / Time spironolactone AdvReac Severe Hyperkalemia, Verified 11/14/20 19:38 bradycardia Tycjerq-Kii-Wsb Reductase AdvReac Intermediate Myalgias Verified 11/14/20 19:38 Inhibitor Consultations 11/14/20 21:58 ED Decision to Admit Stat 11/14/20 23:03 Consult Cardiology Routine Hospital Course (1) Precordial chest pain: Troponins negative x 2. Given recent cath, there was no need for further testing per cardiology team. He was felt to be slightly volume up, so he was given Lasix 80 mg IV x 1 to boost diuresis. He will see Lee Ann Kennedy in clinic on Saturday. By discharge, his chest pain had resolved, and he was happy to be disharged. Total Time Total Time Spent Total Time Spent (In Minutes): 24 Discharge Plan Discharge Items Patient Disposition: Home - Self-Care Reason For Visit: CHEST PAIN RULE OUT Discharge Diagnosis: Chest pain - ruled out cardiac cause Condition on Discharge: Good Activity: Resume your previous activity Non-emergency contact: Primary Care Provider and [employer] Call non-emergency contact if: your symptoms worsen Follow-up/Referrals: Sohan Lawler MD [Primary Care Provider] - 11/22/20 2:10 pm (Your appointment will be in [address].) Lee Ann Kennedy PA-C [Physician [employer]] - 11/18/20 11:00 am Diet: Heart Healthy and Low Sodium (2gm) Addtl Attending Provider Instructions: Mr. Peterson, You were admitted with chest pain. Luckily, this was not an indication of a heart attack as your lab measures remained normal. The heart doctor team saw you and feels you are good to head home. You will see Lee Ann Kennedy in clinic on Saturday to be sure you are doing well. Pending Studies at Discharge: No Stand-Alone Forms: My [facility] Ludesi, Smoking Cessation Medications and DC Order Prescriptions: Continued metoprolol succinate 100 mg tablet extended release 24 hr 100 mg PO BID Qty: 180 RF: 3 allopurinol 300 mg tablet 300 mg PO QAM RF: 0 PreserVision AREDS [id number] rdku-ls-jowq capsule 1 cap PO BID RF: 0 Centrum Silver Men 300-600-300 mcg tablet 1 tab PO DAILY RF: 0 omega 1-mvp-dvi-fish oil [Fish Oil] 1,000 mg (120 mg-180 mg) capsule 1 cap PO DAILY RF: 0 triamcinolone acetonide [Nasacort] 55 mcg aerosol,spray 1 sprays INTNAS DAILY RF: 0 Entresto 97-103 mg tablet 1 tab PO BID Qty: 180 RF: 3 furosemide [Lasix] 40 mg tablet 80 mg PO QAM Qty: 200 RF: 0 Eliquis 5 mg tablet 5 mg PO BID Qty: 180 RF: 3 clopidogrel 75 mg tablet 75 mg PO QAM 30 Days Qty: 90 RF: 3 nitroglycerin 0.4 mg tablet, sublingual 0.4 mg SL Q5M PRN (Reason: chest pain) Qty: 25 RF: 0 amiodarone 200 mg tablet 200 mg PO HS RF: 0 colchicine 0.6 mg tablet 0.6 mg PO QAM RF: 0 colestipol 1 gram tablet 2 g PO QPM RF: 0 metformin 500 mg Tablet 500 mg PO BIDM Qty: 60 RF: 0 sertraline 50 mg tablet 50 mg PO DAILY RF: 0 Discharge Orders: Discharge Order (Routine); Ordered 11/15/20 Ordered By: Laurent Moreno/Other Patient Handouts: Heart Failure Meds, What Is Heart Failure, Heart Failure Signs of Flare-Up, Heart Failure: Tracking Your Weight, Heart Failure: Being Active, Coping with Heart Failure, Heart Failure Making Changes to ..., Warning Signs of a Heart Attack Admission Data Admit Date/Time: 11/14/20 23:03 Attending Provider: Laurent Hawk Admit Provider: Mary Sharp Primary Care Provider: Sohan Lawler Other Providers: Chino Bai ; Laurent Hawk Other Interventions: Discharge Summary Assessment (RN) Last Done: 11/15/20 12:45 Coding Level of Care Code 41779 OBS Care - Discharge Diagnoses Precordial chest pain R07.2
[2020-11-15] MEDS ORDERED: AMIODARONE 200 MG TAB PO SCH (21:00)
[2020-11-15] MEDS ORDERED: COLESTIPOL HCL 1 GM TAB PO SCH (22:00)
--- NOTE | 2020-11-16 05:28 | Electrocardiogram Report ---
Test Reason : Blood Pressure : / mmHG Vent. Rate : 072 BPM Atrial Rate : 078 BPM P-R Int : 340 ms QRS Dur : 114 ms QT Int : 438 ms P-R-T Axes : 000 -57 118 degrees QTc Int : 479 ms Poor data quality, interpretation may be adversely affected Sinus rhythm with 1st degree A-V block Left axis deviation Inferior infarct (cited on or before 04-AUG-2007) Anterior infarct (cited on or before 04-AUG-2007) Abnormal ECG When compared with ECG of 11-OCT-2020 07:49, QT has shortened Confirmed by Stuart Bentley ([id number]) on 11/16/2020 5:28:22 AM Referred By: Lee Ann Kennedy Confirmed By:Stuart Bentley
--- NOTE | 2020-11-16 05:56 | Electrocardiogram Report ---
Test Reason : Blood Pressure : / mmHG Vent. Rate : 063 BPM Atrial Rate : 063 BPM P-R Int : 280 ms QRS Dur : 118 ms QT Int : 452 ms P-R-T Axes : 000 -58 094 degrees QTc Int : 462 ms Sinus rhythm with 1st degree A-V block Left axis deviation Low voltage QRS Inferior infarct Anterior infarct Abnormal ECG When compared with ECG of 14-NOV-2020 17:16, No significant change Confirmed by Stuart Bentley ([id number]) on 11/16/2020 5:56:13 AM Referred By: Lee Ann Kennedy Confirmed By:Stuart Bentley
== END 2020-11-15 14:19 | disposition home or self-care (01) ==
LOC: ED 17:04 → 2S 17:04 → SUATTDRO 23:03 → 2S 23:56

== ENCOUNTER 2021-05-02 08:01 | Inpatient (IN) ==
--- NOTE | 2021-05-02 09:32 | CT Scan Report ---
CT OF THE HEAD WITHOUT CONTRAST CLINICAL HISTORY: pain fall COMPARISON STUDY: No previous studies for comparison. MRI brain February 01, 2011. TECHNIQUE: Helical axial images of the head were obtained without IV contrast. Automated exposure con trol was utilized for the study. A dose lowering technique was utilized adhering to the principles o f ALARA. FINDINGS: This exam is mildly compromised by motion artifact. No acute intracranial hemorrhage, midli ne shift or mass effect is present. The ventricular system is unremarkable. The basal cisterns are pa tent. No extra-axial collections are present. There are no findings to suggest acute dural sinus thro mbosis or acute territorial infarct. Visualized portions of the sinuses and mastoid air cells are arely ar. A small right scalp contusion is noted. There is no calvarial fracture. IMPRESSION: 1. No acute intracranial findings. Exam mildly compromised by motion artifact. 2. Small right scalp contusion. No calvarial fracture. ACT 112: Negative or not required by law. Electronically signed by: Choco Davidson M.D. 05/02/2021 9:30 AM
--- NOTE | 2021-05-02 09:43 | CT Scan Report ---
CERVICAL SPINE CT CT DOSE: 3304.51 mGy.cm HISTORY: Neck pain fall TECHNIQUE: Multiaxial CT images of the cervical spine were performed and reformatted in the sagittal and coronal plane without the use of contrast. A dose lowering technique was utilized adhering to th e principles of ALARA. COMPARISON: None. FINDINGS: No fracture or subluxation within the cervical spine. The C3-T1 vertebral bodies and facets are fused. The prevertebral soft tissues and C1-C2 interval are intact. Partially visualized left pl eural effusion. IMPRESSION: No fractures within the cervical spine. Partially visualized left pleural effusion. ACT 112: Negative or not required by law. Electronically signed by: Adebayo Whitehead M.D. 05/02/2021 9:42 AM
--- NOTE | 2021-05-02 10:16 | XRay Report ---
XR chest 1V portable CLINICAL HISTORY: Chest Pain COMPARISON STUDY: Chest radiograph November 14, 2020. FINDINGS: There is no pneumothorax. A moderate left pleural effusion is present. There is left basila r opacity. There is pulmonary vascular congestion with suspected pulmonary edema. Cardiomegaly is not ed. IMPRESSION: 1. Moderate left pleural effusion with left basilar opacity which likely reflects atelectasis. Radiog raphic follow-up is recommended to ensure resolution. 2. Mild pulmonary edema. 3. Cardiomegaly. ACT 112: Negative or not required by law. Electronically signed by: Choco Davidson M.D. 05/02/2021 10:14 AM
--- NOTE | 2021-05-02 10:19 | XRay Report ---
XR hip RT 2V w pelvis CLINICAL HISTORY: Right hip pain. Fall COMPARISON STUDY: Pelvis 10/12/2014. FINDINGS: No fracture or dislocation within the pelvis or hips. There is mild osteoarthritis within t he bilateral hips, unchanged. The sacrum appears intact. Soft tissues are within normal limits. IMPRESSION: No fracture or dislocation within the pelvis or hips. ACT 112: Negative or not required by law. Electronically signed by: Adebayo Whitehead M.D. 05/02/2021 10:18 AM
[2021-05-02 10:54] LABS: Basophils # (auto) 0.01 K/uL (0-0.2); Basophils % (auto) 0.1 %; Eosinophils # (auto) 0.03 K/uL (0-0.5); Eosinophils % (auto) 0.3 %; Hematocrit (blood only) 35.8 % (42-52); Hemoglobin 11.5 g/dL (14.0-18.0); Immature Granulocytes # (auto) 0.05 K/uL (0.00-0.02); Immature Granulocytes % (auto) 0.4 %; Lymphocytes # (auto) 0.37 K/uL (1.2-3.4); Lymphocytes % (auto) 3.2 %; Mean Corpuscular Hemoglobin 29.3 pg (25-34); Mean Corpuscular Hgb Conc 32.1 g/dL (32-36); Mean Corpuscular Volume 91.3 fL (80-100); Mean Platelet Volume 10.9 fL (7.4-10.4); Monocytes # (auto) 0.76 K/uL (0.11-0.59); Monocytes % (auto) 6.6 %; Neutrophils # (auto) 10.23 K/uL (1.4-6.5); Neutrophils % (auto) 89.4 %; Platelet Count 247 K/uL (130-400); RDW Coefficient of Variation 17.4 % (11.5-14.5); RDW Standard Deviation 57.5 fL (36.4-46.3); Red Blood Count 3.92 M/uL (4.7-6.1); White Blood Count 11.45 K/uL (4.8-10.8)
[2021-05-02 11:13] LABS: INR 1.2 (0.9-1.1); Partial Thromboplastin Time 25.4 Seconds (21.0-31.0); Prothrombin Time 12.2 Seconds (9.0-12.0)
[2021-05-02 11:19] LABS: Alanine Aminotransferase 21 U/L (12-78); Albumin Level 3.2 gm/dl (3.4-5.0); Aspartate Aminotransferase 20 U/L (15-37); BUN Creatinine Ratio 22.6 (10-20); Bilirubin Direct 0.3 mg/dl (0-0.2); Blood Urea Nitrogen 48 mg/dl (7-18); Calcium 8.6 mg/dl (8.5-10.1); Carbon Dioxide 26 mmol/L (21-32); Chloride 104 mmol/L (98-107); Creatinine Clr Calc Pharmacy 37.3 ml/min; Est GFR (African American) 33.4 ml/min; Est GFR (Non-African American) 28.8 ml/min; Glucose 126 mg/dl (70-99); Lipase 267 U/L (73-393); Potassium 3.3 mmol/L (3.5-5.1); Sodium 138 mmol/L (136-145)
[2021-05-02 11:23] LABS: Albumin Globulin Ratio 0.9 (0.9-2); Alkaline Phosphatase 250 U/L (45-117); Bilirubin,Total 0.7 mg/dl (0.2-1); Globulin 3.6 gm/dl (2.5-4.0); NT Pro B Type Natriuretic Pept 4999 pg/ml (0-1800); Phosphorus 3.7 mg/dl (2.5-4.9); Total Protein 6.8 gm/dl (6.4-8.2); Troponin I < 0.015 ng/ml (0-0.045)
[2021-05-02] MEDS ORDERED: BUMETANIDE 2 MG in SYRINGE 0 ML IV ONE (11:24)
--- NOTE | 2021-05-02 11:56 | Ultrasound Report ---
BILATERAL LOWER EXTREMITY VENOUS DOPPLER HISTORY: Lower extremity edema pain COMPARISON STUDY: None. FINDINGS: There is normal compressibility, flow, and augmentation within the bilateral lower extremit y deep venous systems. IMPRESSION: No DVT within the right or left lower extremity. ACT 112: Negative or not required by law. Electronically signed by: Adebayo Whitehead M.D. 05/02/2021 11:54 AM
--- NOTE | 2021-05-02 12:43 | Emergency Department Note ---
Impression & Plan Acute on chronic combined systolic (congestive) and diastolic (congestive) heart failure, Bilateral edema of lower extremity, Shortness of breath at rest, Ulcer of right lower leg, Fall from standing ED Provider Note NAME: LATANYA ASHLEY AGE: 76 SEX: M ARRIVES VIA: Ambulance INFORMANT: Patient, ED PROVIDER(S): Daryl Johnson MD CHIEF COMPLAINT: Fall, SOB. PLAN: Disposition: Admit MEDICAL DECISION MAKING: The patient is a pleasant 76-year-old gentleman with a past medical history of atrial fibrillation, CAD, ischemic cardiomyopathy, combined systolic and diastolic heart failure, CKD, diabetes, hypertension, hyperlipidemia who presents to the emergency department for evaluation of worsening shortness of breath and fluid retention as well as evaluation for fall which he reports occurred today when he was at him to get in his vehicle and was unable to get his leg up into the car and fell over onto his right side hitting his head. He denies any loss of consciousness. He reports he was unable to get up but upon EMS arrival was able to stand with assistance. He reports he was on his way to have an outpatient ultrasound done which was ordered by his cardiology office. He was seen yesterday per his report and he relates that he was prescribed metolazone which she was to pickle maker today to help with additional diuresis and fluid removal. He denies any fevers, chills, nausea, vomiting, diarrhea. He reports his legs have becoming more edematous and red with increased weeping over the past couple of weeks. On arrival the patient is chronically ill-appearing, uncomfortable/mildly dyspneic but in NAD, AFVSS. He appears hypervolemic with 4+ BLE pitting edma with serous weeping. EKG shows suspected A. fib without overt acute ischemia. Chest X-ray shows pulmonary edema. WBC 11.4, nonspecific. Platelets within normal limits. H/H similar to prior range of values. Chemistry without metabolic acidosis. Creatinine 2.1, similar to yesterday however increased from recent range of values. LFTs without significant abnormality. Troponin negative/undetectable. BNP 4900 increased from recent. Over [address] of the head and C-spine negative for acute findings. Plain films of the right hip and pelvis. Bilateral lower extremity ultrasound negative for DVT. The patient reports he is "getting exhausted from this" as he feels he is unable to manage given his increased fluid retention where he is short of breath with minimal exertion and moving his legs which are severely edematous and contributed to his fall today. Agrees with plan for admission for further management. IV Bumex ordered. Case was discussed [place]. Marquis, [facility] [place], who will evaluate the patient for admission. Triage Nursing notes reviewed and agree them. Prior medical records reviewed Vital Signs: reviewed and remarkable for no significant abnormalities Differential diagnosis: Infection, dehydration, metabolic abnormality, hypo/hyperglycemia, electrolyte disturbance, anemia, hypoxia, cardiac sources, intracerebral event, toxicologic, neurologic, as well as other pathologies. ER treatment provided: See below. Diagnostics interpreted by me: ECG: Suspected atrial fibrillation, 55 bpm, no ectopy, no overt ST elevation or depression, QTC 508, QRS 98. Cardiac Monitoring: An order for continuous cardiac monitoring was placed and demonstrated suspected atrial fibrillation, 55 bpm, no ectopy. Laboratory studies: See below Imaging studies: See below Consultation(s): Case was discussed with Dr. Marquis [facility] [place], who will evaluate the patient for admission. HPI: The patient is a pleasant 76-year-old gentleman with a past medical history of atrial fibrillation, CAD, ischemic cardiomyopathy, combined systolic and diastolic heart failure, CKD, diabetes, hypertension, hyperlipidemia who presents to the emergency department for evaluation of worsening shortness of breath and fluid retention as well as evaluation for fall which he reports occurred today when he was at him to get in his vehicle and was unable to get his leg up into the car and fell over onto his right side hitting his head. He denies any loss of consciousness. He reports he was unable to get up but upon EMS arrival was able to stand with assistance. He reports he was on his way to have an outpatient ultrasound done which was ordered by his cardiology office. He was seen yesterday per his report and he relates that he was prescribed metolazone which she was to pickle maker today to help with additional diuresis and fluid removal. He denies any fevers, chills, nausea, vomiting, diarrhea. He reports his legs have becoming more edematous and red with increased weeping over the past couple of weeks. ROS: See above HPI for pertinent positives & negatives. A total of 10 systems reviewed and were otherwise negative. PAST MEDICAL HISTORY:See Below PAST SURGICAL HISTORY:See Below FAMILY HISTORY:See Below SOCIAL HISTORY:See Below HOME MEDICATIONS:See Below ALLERGIES:See Below VITALS:See Below PHYSICAL EXAMINATION: GENERAL: Awake, alert, chronically ill-appearing, in no distress HENT: Normocephalic, atraumatic. Oropharynx unremarkable. EYES: Normal conjunctiva. Sclera non-icteric. NECK: Supple. No nuchal rigidity. FROM. Mild JVD. RESPIRATORY: Diminished breath sounds at the bases and bilateral scant rales. CARDIAC: Regular rate, normal rhythm. Extremities warm and well perfused. Pulses equal. ABDOMEN: Soft, non-distended. No tenderness to palpation. No rebound or guarding. No masses. RECTAL: Deferred. MUSCULOSKELETAL: Chest examination reveals no tenderness. The back is symmetrical on inspection without obvious abnormality. There is no CVA tenderness to palpation. No joint edema. LOWER EXTREMITIES: Calves are equal size bilaterally and non-tender. 4+ BLE edema with serous weeping. Right lower leg with mild erythema and 4cm superficial pretibial ulceration. NEURO: Normal sensorium. No sensory or motor deficits noted. SKIN: No jaundice noted. Daryl Johnson MD Past Med/Surg History Medical History Arthritis back, knees Atrial fibrillation New onset a. fib 08/2020 in setting of NSTEMI (which resulted in placement of 3 stents) Chronic anticoagulation Chronic systolic heart failure CKD (chronic kidney disease) stage 3, GFR 30-59 ml/min Coronary artery disease stent x1 (2006), stents x3 (08/2020) Diastolic CHF Newly diagnosed during 03/2020 admission, responded well to diuretics > discharged on diuretics and referred to HF clinic per cardiology records Gout of ankle Hx of myocardial infarction 2006, NSTEMI (08/2020 > 3 stents) Hyperlipidemia Hypertension Ischemic cardiomyopathy Low back pain Lyme disease hx of 2018 Major depressive disorder Obesity Paroxysmal atrial fibrillation Pulmonary embolism 5+ years ago Type 2 diabetes mellitus NIDDM Surgical History History of prostate biopsy S/P coronary artery stent placement stent x1 (2006), stents x3 (08/2020) Family History Family/Other Prostate cancer Father Heart disease Mother Bone cancer Sister Colon cancer Social History Smoking Status: Never smoker Second Hand Exposure: No; Hx Alcohol Use: No Hx Substance Use: No Preferred Language: [place] Communication Ability: Effective Md Urologist Required: No Beliefs That Will Affect Care: None marital status: Single Current Living Situation: Alone current occupational status: retired Other Information That Helps Us Care for You: No Feels Safe at Home: Yes Safety Concerns: Feels Safe At This Time Diet Comment: Has special diet unsure what kind Assistive Devices: Cane and Glasses Allergies Allergies Allergy/AdvReac Type Severity Reaction Status Date / Time spironolactone AdvReac Severe Hyperkalemia, Verified 05/02/21 08:46 bradycardia Sqvofye-Ktt-Wqa Reductase AdvReac Intermediate Myalgias Verified 05/02/21 08:46 Inhibitor Home Meds Home Medications Medication Instructions Recorded Confirmed allopurinol 300 mg tablet 300 mg PO QAM tab 05/11/19 05/02/21 mhnqxxmq-fvx-kozzy acid 300 1 tab PO QAM 05/11/19 05/02/21 mcg-lycopene 600 mcg-lutein 300 mcg tablet (Centrum Silver Men) vitamins A,C,I-ucvd-rawvah 14,320 1 cap PO BID 05/11/19 05/02/21 unit-226 mg-200 unit capsule (PreserVision AREDS) omega 6-qda-tms-fish oil 1,000 mg 1 cap PO QAM 05/20/19 05/02/21 (120 mg-180 mg) capsule (Fish Oil) amiodarone 200 mg tablet (Pacerone) 200 mg PO HS 10/06/20 05/02/21 sertraline 50 mg tablet (Zoloft) 50 mg PO QAM 11/14/20 05/02/21 albuterol sulfate 90 mcg/actuation 2 puff INHALATION Q6H PRN 05/02/21 05/02/21 aerosol inhaler (Ventolin HFA) clopidogrel 75 mg tablet (Plavix) 75 mg PO QAM 05/02/21 05/02/21 colestipol 1 gram tablet (Colestid) 2 g PO BID 05/02/21 05/02/21 ketoconazole 2 % topical cream 1 applic TOPICAL DAILY 05/02/21 05/02/21 metoprolol succinate 100 mg 100 mg PO BID 05/02/21 05/02/21 tablet,extended release 24 hr (Toprol XL) nitroglycerin 0.4 mg sublingual 0.4 mg SL Q5M PRN 05/02/21 05/02/21 tablet (Nitrostat) Previous Rx's Medication Instructions Recorded metformin 500 mg tablet 500 mg PO BIDM #60 tab 08/31/20 sacubitril 97 mg-valsartan 103 mg 1 tab PO BID #180 tab 11/04/20 tablet (Entresto) apixaban 5 mg tablet (Eliquis) 5 mg PO BID #180 tab 03/28/21 bumetanide 2 mg tablet 2 mg PO BID #60 tab 03/28/21 metolazone 5 mg tablet 5 mg PO DAILY #7 tab 05/01/21 Results & Data (ED) Vital Signs Vital Signs - 24 hr 05/02/21 08:00 05/02/21 08:03 05/02/21 12:15 Temperature 36.7 C Temperature Source Oral Pulse Rate 58 L 53 L 57 L Pulse Rate [Apical] Pulse Rate from SpO2 Sensor 56 L 52 L Respiratory Rate 18 19 18 Respiratory Effort / Characteristics Non-Labored Respiratory Depth Normal Blood Pressure 103/60 103/60 108/66 Blood Pressure [Right Arm] Blood Pressure Mean 74 74 80 Blood Pressure Mean [Right Arm] Blood Pressure Position [Right Arm] Pulse Oximetry 90 93 95 Oxygen Delivery Method Room Air Room Air Room Air Sepsis Recent Fever Within 48 Hours No Sepsis New/Unexplained Change in Mental Status No Sepsis Action Taken by Nursing No Action Required 05/02/21 14:02 Temperature Temperature Source Pulse Rate Pulse Rate [Apical] 64 Pulse Rate from SpO2 Sensor Respiratory Rate 20 Respiratory Effort / Characteristics Respiratory Depth Blood Pressure Blood Pressure [Right Arm] 108/66 Blood Pressure Mean Blood Pressure Mean [Right Arm] 80 Blood Pressure Position [Right Arm] Sitting Pulse Oximetry 98 Oxygen Delivery Method Room Air Sepsis Recent Fever Within 48 Hours Sepsis New/Unexplained Change in Mental Status Sepsis Action Taken by Nursing Laboratory Data Result diagrams: 05/02/21 10:39 05/02/21 10:39 Lab Results 05/02/21 05/02/21 05/02/21 Range/Units 10:15 10:15 10:39 WBC 11.45 H (4.8-10.8) K/uL RBC 3.92 L (4.7-6.1) M/uL Hgb 11.5 L (14.0-18.0) g/dL Hct 35.8 L (42-52) % MCV 91.3 (80-100) fL MCH 29.3 (25-34) pg MCHC 32.1 (32-36) g/dL RDW Std Deviation 57.5 H (36.4-46.3) fL RDW Coeff of Jeff 17.4 H (11.5-14.5) % Plt Count 247 (130-400) K/uL MPV 10.9 H (7.4-10.4) fL Immature Gran % (Auto) 0.4 % Neut % (Auto) 89.4 % Lymph % (Auto) 3.2 % [place] % (Auto) 6.6 % Eos % (Auto) 0.3 % Baso % (Auto) 0.1 % Neut # (Auto) 10.23 H (1.4-6.5) K/uL Lymph # (Auto) 0.37 L (1.2-3.4) K/uL [place] # (Auto) 0.76 H (0.11-0.59) K/uL Eos # (Auto) 0.03 (0-0.5) K/uL Baso # (Auto) 0.01 (0-0.2) K/uL Immature Gran # (Auto) 0.05 H (0.00-0.02) K/uL PT (9.0-12.0) Seconds INR (0.9-1.1) APTT (21.0-31.0) Seconds PTT Ratio Sodium (136-145) mmol/L Potassium (3.5-5.1) mmol/L Chloride (98-107) mmol/L Carbon Dioxide (21-32) mmol/L Anion Gap (3-11) BUN (7-18) mg/dl Creatinine (0.6-1.4) mg/dl Est Cr Clr Drug Dosing ml/min Est GFR ( Amer) ml/min Est GFR (Non-Af Amer) ml/min BUN/Creatinine Ratio (10-20) Glucose (70-99) mg/dl Calcium (8.5-10.1) mg/dl Phosphorus (2.5-4.9) mg/dl Magnesium (1.8-2.4) mg/dl Total Bilirubin (0.2-1) mg/dl Direct Bilirubin (0-0.2) mg/dl AST (15-37) U/L ALT (12-78) U/L Alkaline Phosphatase (45-117) U/L Troponin I (0-0.045) ng/ml NT-Pro-B Natriuret Pep (0-1800) pg/ml Total Protein (6.4-8.2) gm/dl Albumin (3.4-5.0) gm/dl Globulin (2.5-4.0) gm/dl Albumin/Globulin Ratio (0.9-2) Lipase (73-393) U/L COVID-19 Eval Order Covid19 at [facility] SARS-CoV-2 (PCR) NEGATIVE (Negative) 05/02/21 05/02/21 Range/Units 10:39 10:39 WBC (4.8-10.8) K/uL RBC (4.7-6.1) M/uL Hgb (14.0-18.0) g/dL Hct (42-52) % MCV (80-100) fL MCH (25-34) pg MCHC (32-36) g/dL RDW Std Deviation (36.4-46.3) fL RDW Coeff of Jeff (11.5-14.5) % Plt Count (130-400) K/uL MPV (7.4-10.4) fL Immature Gran % (Auto) % Neut % (Auto) % Lymph % (Auto) % [place] % (Auto) % Eos % (Auto) % Baso % (Auto) % Neut # (Auto) (1.4-6.5) K/uL Lymph # (Auto) (1.2-3.4) K/uL [place] # (Auto) (0.11-0.59) K/uL Eos # (Auto) (0-0.5) K/uL Baso # (Auto) (0-0.2) K/uL Immature Gran # (Auto) (0.00-0.02) K/uL PT 12.2 H (9.0-12.0) Seconds INR 1.2 H (0.9-1.1) APTT 25.4 (21.0-31.0) Seconds PTT Ratio 1.0 Sodium 138 (136-145) mmol/L Potassium 3.3 L (3.5-5.1) mmol/L Chloride 104 (98-107) mmol/L Carbon Dioxide 26 (21-32) mmol/L Anion Gap 8.0 (3-11) BUN 48 H (7-18) mg/dl Creatinine 2.14 H (0.6-1.4) mg/dl Est Cr Clr Drug Dosing 37.3 ml/min Est GFR ( Amer) 33.4 ml/min Est GFR (Non-Af Amer) 28.8 ml/min BUN/Creatinine Ratio 22.6 H (10-20) Glucose 126 H (70-99) mg/dl Calcium 8.6 (8.5-10.1) mg/dl Phosphorus 3.7 (2.5-4.9) mg/dl Magnesium 2.0 (1.8-2.4) mg/dl Total Bilirubin 0.7 (0.2-1) mg/dl Direct Bilirubin 0.3 H (0-0.2) mg/dl AST 20 (15-37) U/L ALT 21 (12-78) U/L Alkaline Phosphatase 250 H (45-117) U/L Troponin I < 0.015 (0-0.045) ng/ml NT-Pro-B Natriuret Pep 4999 H (0-1800) pg/ml Total Protein 6.8 (6.4-8.2) gm/dl Albumin 3.2 L (3.4-5.0) gm/dl Globulin 3.6 (2.5-4.0) gm/dl Albumin/Globulin Ratio 0.9 (0.9-2) Lipase 267 (73-393) U/L COVID-19 Eval Order SARS-CoV-2 (PCR) (Negative) Administered Medications Acetaminophen (Acetaminophen 325 Mg Tab) 650 mg PO Q4H PRN PRN Reason: Pain or Fever Stop: 06/01/21 15:31 Last Admin: 05/02/21 20:19 Dose: 650 mg Documented by: [id number] Amiodarone HCl (Amiodarone 200 Mg Tab) 200 mg PO HS [place] Stop: 06/01/21 20:59 Last Admin: 05/02/21 20:23 Dose: 200 mg Documented by: [id number] Apixaban (Apixaban 5 Mg Tablet) 5 mg PO BID [place] Stop: 06/01/21 20:59 Last Admin: 05/02/21 20:20 Dose: 5 mg Documented by: [id number] Bumetanide 2 mg/ Syringe 8 mls @ 4 mls/min IV BID@0900,1700 [facility] Stop: 06/01/21 16:59 Last Admin: 05/02/21 16:07 Dose: 4 mls/min Documented by: [id number] Insulin Aspart (Insulin Aspart 100 Units/Ml 3 Ml Pen) 0 units SC ACHS [facility] Stop: 06/01/21 16:29 Last Admin: 05/02/21 20:56 Dose: Not Given Documented by: [id number] Cosigned by: [id number] Admin: 05/02/21 17:13 Dose: 1 units Documented by: [id number] Cosigned by: [id number] Metoprolol Succinate (Metoprolol Succ 50mg Ext Rel Tab) 100 mg PO BID [facility] Stop: 06/01/21 20:59 Last Admin: 05/02/21 20:25 Dose: Not Given Documented by: [id number] Discontinued Medications Bumetanide 2 mg/ Syringe 8 mls @ 4 mls/min IV ONE ONE Stop: 05/02/21 11:25 Last Admin: 05/02/21 12:14 Dose: 4 mls/min Documented by: [id number] Imaging Data Radiologist's Impression: Hip/Pelvis X-Ray 05/02/21 09:10 XR hip RT 2V w pelvis CLINICAL HISTORY: Right hip pain. Fall COMPARISON STUDY: Pelvis 10/12/2014. FINDINGS: No fracture or dislocation within the pelvis or hips. There is mild osteoarthritis within the bilateral hips, unchanged. The sacrum appears intact. Soft tissues are within normal limits. IMPRESSION: No fracture or dislocation within the pelvis or hips. ACT 112: Negative or not required by law. Electronically signed by: Adebayo Whitehead M.D. 05/02/2021 10:18 AM Venous Doppler Study 05/02/21 10:13 BILATERAL LOWER EXTREMITY VENOUS DOPPLER HISTORY: Lower extremity edema pain COMPARISON STUDY: None. FINDINGS: There is normal compressibility, flow, and augmentation within the b ilateral lower extremity deep venous systems. IMPRESSION: No DVT within the right or left lower extremity. ACT 112: Negative or not required by law. Electronically signed by: Adebayo Whitehead M.D. 05/02/2021 11:54 AM Discharge Plan Visit Data Chief Complaint: Fall Stated Complaint: FALL, ED Provider: Daryl Johnson Discharge Problem: Acute on chronic combined systolic (congestive) and diastolic (congestive) heart failure, Bilateral edema of lower extremity, Shortness of breath at rest, Ulcer of right lower leg, Fall from standing Patient Disposition: Admitted As Inpatient Discharge Instructions Interventions: ED Discharge Assessment Last Done: 05/02/21 15:12 Discharge Problem: Ulcer of right lower leg Qualifiers: Non-pressure ulcer stage: limited to breakdown of skin Qualified Code(s): L97.911 - Non-pressure chronic ulcer of unspecified part of right lower leg limited to breakdown of skin Fall from standing Qualifiers: Encounter type: initial encounter Qualified Code(s): W19.XXXA - Unspecified fall, initial encounter
--- NOTE | 2021-05-02 13:58 | History & Physical Report ---
Date of Service May 02, 2021 Assessment & Plan (1) Acute on chronic systolic heart failure: Plan: Patient with significant edema and worsening renal status, likely secondary to acute on chronic heart failure Patient does have a history of ischemic cardiomyopathy with EF of 30-35% Admit to a PCU bed and Start diuresis with Bumex 2 mg IV every 12 hours. Per previous cardiology note, patient was very recently increased 4 mg of but may not have started his new dose I will also start metolazone 5 mg daily as recommended by cardiology Check I's and O's, daily weights Elevate legs when possible Trend cardiac enzymes I will ask cardiology to evaluate further recommendations (2) Pleural effusion: Plan: Left-sided pleural effusion seen on checks x-ray, most likely CHF Discussed with Nikolai Valladares, can tap as patient is on aspirin, Plavix, and Eliquis. We will try to diuresis fluid off but may need to consider if patient does not improve (3) History of coronary artery disease: Plan: Continue medications as previously ordered This includes Toprol-XL 100 mg twice daily, aspirin and Plavix, (4) Paroxysmal atrial fibrillation: Plan: Patient is on Eliquis 5 mg twice daily Patient also takes amiodarone 200 mg twice daily which we will continue (5) CKD (chronic kidney disease) stage 3, GFR 30-59 ml/min: Plan: Patient appears to have worsening renal function on serial lab work prior to his presentation Creatinine was previously 1.3 but now up to 2.14, will monitor with diuresis Because of poor renal function, will hold Entresto for now, will need this restarted as soon as possible (6) Type 2 diabetes mellitus: Plan: I with worsening renal function, will hold off on Metformin for now Start sliding scale insulin Check hemoglobin A1c (7) Hyperlipidemia: Plan: Check fasting lipid Patient is not on a statin, noted to have an intolerance Continue Colestid as ordered (8) Hypertension: Plan: Blood pressure is low, holding Entresto may improve this History of Present Illness Chief Complaint: Dyspnea on exertion, edema, status post fall Primary Care Provider: Sohan Lawler MD This is a 76-year-old male with past medical history of ischemic cardiomyopathy with EF 30-35%, rhythm controlled atrial fibrillation, coronary artery disease that presents status post fall along with worsening edema and dyspnea. Patient is pleasant but somewhat limited historian. Patient initially started to notice a worsening edema in his lower extremities over the past few weeks to the point that are now massively edematous and weeping clear fluid. He finds that it is somewhat more difficult to ambulate with this. In addition, he has noticed worsening dyspnea on exertion with very little exercise tolerance. 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 Canchola on 05/01. At that time, was no phi that his renal function was worsening and that he was more edematous despite being on large doses of twice daily Bumex. Patient was prescribed metolazone 5 mg daily, this was called to the pharmacy that the patient has not yet been able to obtain it. Earlier today, patient was at the [employer] building here. He went to get into his car and tripped on the runner, falling down his right si de. Patient was brought to the emergency room, evaluation shows the patient did not have any significant injury including fracture or head trauma. At my evaluation, the patient is ambulatory around the room. He does not appear to be short of breath at rest but has significant dyspnea with even a short walk from the bathroom. Patient is concerned that he can no longer care for himself in his current condition and will like more intensive therapy to deal with his fluid overload. He does admit to some of very minimal chest pain which is substernal, similar to a "pulled muscle "that he experienced in the past. He denies any fevers, chills, diarrhea, nausea, vomiting, or constipation. Allergies Allergy/AdvReac Type Severity Reaction Status Date / Time spironolactone AdvReac Severe Hyperkalemia, Verified 05/02/21 08:46 bradycardia Ukxcezk-Rqv-Lxe Reductase AdvReac Intermediate Myalgias Verified 05/02/21 08:46 Inhibitor Home Medications Medication Instructions Recorded Confirmed Type allopurinol 300 mg tablet 300 mg PO QAM tab 05/11/19 05/02/21 History nufjyrfv-zcf-gyldi acid 300 1 tab PO QAM 05/11/19 05/02/21 History mcg-lycopene 600 mcg-lutein 300 mcg tablet (Centrum Silver Men) vitamins A,C,T-swmw-rzhlxl 14,320 1 cap PO BID 05/11/19 05/02/21 History unit-226 mg-200 unit capsule (PreserVision AREDS) omega 7-cxv-oao-fish oil 1,000 mg 1 cap PO QAM 05/20/19 05/02/21 History (120 mg-180 mg) capsule (Fish Oil) metformin 500 mg tablet 500 mg PO BIDM #60 tab 08/31/20 05/02/21 Rx amiodarone 200 mg tablet (Pacerone) 200 mg PO HS 10/06/20 05/02/21 History sacubitril 97 mg-valsartan 103 mg 1 tab PO BID #180 tab 11/04/20 05/02/21 Rx tablet (Entresto) sertraline 50 mg tablet (Zoloft) 50 mg PO QAM 11/14/20 05/02/21 History apixaban 5 mg tablet (Eliquis) 5 mg PO BID #180 tab 03/28/21 05/02/21 Rx bumetanide 2 mg tablet 2 mg PO BID #60 tab 03/28/21 05/02/21 Rx metolazone 5 mg tablet 5 mg PO DAILY #7 tab 05/01/21 05/02/21 Rx albuterol sulfate 90 mcg/actuation 2 puff INHALATION Q6H PRN 05/02/21 05/02/21 History aerosol inhaler (Ventolin HFA) clopidogrel 75 mg tablet (Plavix) 75 mg PO QAM 05/02/21 05/02/21 History colestipol 1 gram tablet (Colestid) 2 g PO BID 05/02/21 05/02/21 History ketoconazole 2 % topical cream 1 applic TOPICAL DAILY 05/02/21 05/02/21 History metoprolol succinate 100 mg 100 mg PO BID 05/02/21 05/02/21 History tablet,extended release 24 hr (Toprol XL) nitroglycerin 0.4 mg sublingual 0.4 mg SL Q5M PRN 05/02/21 05/02/21 History tablet (Nitrostat) Past Med/Surg History Medical History Arthritis Atrial fibrillation Chronic anticoagulation Chronic systolic heart failure CKD (chronic kidney disease) stage 3, GFR 30-59 ml/min Coronary artery disease Diastolic CHF Gout of ankle Hx of myocardial infarction Hyperlipidemia Hypertension Ischemic cardiomyopathy Low back pain Lyme disease Major depressive disorder Obesity Paroxysmal atrial fibrillation Pulmonary embolism Type 2 diabetes mellitus Surgical History History of prostate biopsy S/P coronary artery stent placement Family History Family/Other Prostate cancer Father Heart disease Mother Bone cancer Sister Colon cancer Social History Smoking Status: Never smoker Second Hand Exposure: No; Hx Alcohol Use: Yes Alcohol type: wine Hx Substance Use: No Preferred Language: Surinamese Communication Ability: Effective 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 Required: No Beliefs That Will Affect Care: Adventist Adventist Beliefs: SPIRITISM marital status: Single Current Living Situation: Alone current occupational status: retired Feels Safe at Home: Yes Diet Comment: Has special diet unsure what kind Assistive Devices: Glasses Review of Systems Constitutional: + weight gain; no fever, no chills, no weakness and no weight loss Eyes: as per Subjective / HPI Respiratory: + dyspnea on exertion; no cough, no chest congestion and no sputum production Cardiovascular: + chest pain, + dyspnea on exertion and + edema; no orthopnea, no palpitations and no lightheadedness Additional Comments: Positive for worsening edema Gastrointestinal: no abdominal pain, no nausea, no vomiting, no constipation and no diarrhea/loose stools Musculoskeletal: + neck pain; no back pain, no joint pain, no stiffness and no myalgia Integumentary: no rash Neurologic: no gait abnormality, no unsteadiness, no falls and no generalized weakness Physical Exam Constitutional: cooperative; no acute distress Neck: trachea midline, no thyromegaly Respiratory: normal respiratory effort Auscultation: + diminished lung sounds (Left base), + crackles and + rales; no rhonchi and no wheezes Cardiovascular: Rate/Rhythm: regular rate and regular rhythm Heart Sounds: normal S1 and normal S2 Gastrointestinal (Abdomen): Inspection/Auscultation: abdomen normal to inspection Percussion/Palpation: abdomen soft; abdomen nontender, no guarding, abdomen not rigid and no hepatosplenomegaly Skin: + ulcer (Right pretibial area, ulceration covered by dressing. Bilateral serous weep) Results & Data Results & Data ([facility]) Vital Signs (Past 12 Hours) Vital Signs Temp Pulse Resp BP Pulse Ox 05/02/21 12:15 57 L 18 108/66 95 05/02/21 08:03 53 L 19 103/60 93 05/02/21 08:00 36.7 C 58 L 18 103/60 90 Laboratory Results Laboratory Results WBC 11.45 K/uL (4.8-10.8) H 05/02/21 10:39 RBC 3.92 M/uL (4.7-6.1) L 05/02/21 10:39 Hgb 11.5 g/dL (14.0-18.0) L 05/02/21 10:39 Hct 35.8 % (42-52) L 05/02/21 10:39 MCV 91.3 fL (80-100) 05/02/21 10:39 MCH 29.3 pg (25-34) 05/02/21 10:39 MCHC 32.1 g/dL (32-36) 05/02/21 10:39 RDW Std Deviation 57.5 fL (36.4-46.3) H 05/02/21 10:39 RDW Coeff of Jeff 17.4 % (11.5-14.5) H 05/02/21 10:39 Plt Count 247 K/uL (130-400) 05/02/21 10:39 MPV 10.9 fL (7.4-10.4) H 05/02/21 10:39 Immature Gran % (Auto) 0.4 % 05/02/21 10:39 Neut % (Auto) 89.4 % 05/02/21 10:39 Lymph % (Auto) 3.2 % 05/02/21 10:39 [place] % (Auto) 6.6 % 05/02/21 10:39 Eos % (Auto) 0.3 % 05/02/21 10:39 Baso % (Auto) 0.1 % 05/02/21 10:39 Neut # (Auto) 10.23 K/uL (1.4-6.5) H 05/02/21 10:39 Lymph # (Auto) 0.37 K/uL (1.2-3.4) L 05/02/21 10:39 [place] # (Auto) 0.76 K/uL (0.11-0.59) H 05/02/21 10:39 Eos # (Auto) 0.03 K/uL (0-0.5) 05/02/21 10:39 Baso # (Auto) 0.01 K/uL (0-0.2) 05/02/21 10:39 Immature Gran # (Auto) 0.05 K/uL (0.00-0.02) H 05/02/21 10:39 PT 12.2 Seconds (9.0-12.0) H 05/02/21 10:39 INR 1.2 (0.9-1.1) H 05/02/21 10:39 APTT 25.4 Seconds (21.0-31.0) 05/02/21 10:39 PTT Ratio 1.0 05/02/21 10:39 Sodium 138 mmol/L (136-145) 05/02/21 10:39 Potassium 3.3 mmol/L (3.5-5.1) L 05/02/21 10:39 Chloride 104 mmol/L (98-107) 05/02/21 10:39 Carbon Dioxide 26 mmol/L (21-32) 05/02/21 10:39 Anion Gap 8.0 (3-11) 05/02/21 10:39 BUN 48 mg/dl (7-18) H 05/02/21 10:39 Creatinine 2.14 mg/dl (0.6-1.4) H 05/02/21 10:39 Est Cr Clr Drug Dosing 37.3 ml/min 05/02/21 10:39 Est GFR ( Amer) 33.4 ml/min 05/02/21 10:39 Est GFR (Non-Af Amer) 28.8 ml/min 05/02/21 10:39 BUN/Creatinine Ratio 22.6 (10-20) H 05/02/21 10:39 Glucose 126 mg/dl (70-99) H 05/02/21 10:39 Calcium 8.6 mg/dl (8.5-10.1) 05/02/21 10:39 Phosphorus 3.7 mg/dl (2.5-4.9) 05/02/21 10:39 Magnesium 2.0 mg/dl (1.8-2.4) 05/02/21 10:39 Total Bilirubin 0.7 mg/dl (0.2-1) 05/02/21 10:39 Direct Bilirubin 0.3 mg/dl (0-0.2) H 05/02/21 10:39 AST 20 U/L (15-37) 05/02/21 10:39 ALT 21 U/L (12-78) 05/02/21 10:39 Alkaline Phosphatase 250 U/L (45-117) H 05/02/21 10:39 Troponin I < 0.015 ng/ml (0-0.045) 05/02/21 10:39 NT-Pro-B Natriuret Pep 4999 pg/ml (0-1800) H 05/02/21 10:39 Total Protein 6.8 gm/dl (6.4-8.2) 05/02/21 10:39 Albumin 3.2 gm/dl (3.4-5.0) L 05/02/21 10:39 Globulin 3.6 gm/dl (2.5-4.0) 05/02/21 10:39 Albumin/Globulin Ratio 0.9 (0.9-2) 05/02/21 10:39 Lipase 267 U/L (73-393) 05/02/21 10:39 COVID-19 Eval Order Covid19 at [facility] 05/02/21 10:15 SARS-CoV-2 (PCR) NEGATIVE (Negative) 05/02/21 10:15 Impressions Chest X-Ray 05/02/21 09:04 XR chest 1V portable CLINICAL HISTORY: Chest Pain COMPARISON STUDY: Chest radiograph November 14, 2020. FINDINGS: There is no pneumothorax. A moderate left pleural effusion is present. There is left basilar opacity. There is pulmonary vascular congestion with suspected pulmonary edema. Cardiomegaly is noted. IMPRESSION: 1. Moderate left pleural effusion with left basilar opacity which likely reflects atelectasis. Radiographic follow-up is recommended to ensure resolution. 2. Mild pulmonary edema. 3. Cardiomegaly. ACT 112: Negative or not required by law. Electronically signed by: Choco Davidson M.D. 05/02/2021 10:[address] 05/02/21 09:[address] DOSE: 3304.51 mGy.cm HISTORY: Neck pain fall TECHNIQUE: Multiaxial CT images of the cervical spine were performed and reformatted in the sagittal and coronal plane without the use of contrast. A dose lowering technique was utilized adhering to the principles of ALARA. COMPARISON: None. FINDINGS: No fracture or subluxation within the cervical spine. The C3-T1 vertebral bodies and facets are fused. The prevertebral soft tissues and C1-C2 interval are intact. Partially visualized left pleural effusion. IMPRESSION: No fractures within the cervical spine. Partially visualized left pleural effusion. ACT 112: Negative or not required by law. Electronically signed by: Adebayo Whitehead M.D. 05/02/2021 9:[address] 05/02/21 09:10 CT OF THE HEAD WITHOUT CONTRAST CLINICAL HISTORY: pain fall COMPARISON STUDY: No previous studies for comparison. MRI brain February 01, 2011. TECHNIQUE: Helical axial images of the head were obtained without IV contrast. Automated exposure control was utilized for the study. A dose lowering technique was utilized adhering to the principles of ALARA. FINDINGS: This exam is mildly compromised by motion artifact. No acute intracranial hemorrhage, midline shift or mass effect is present. The ventricular system is unremarkable. The basal cisterns are patent. No extra- axial collections are present. There are no findings to suggest acute dural sinus thrombosis or acute territorial infarct. Visualized portions of the sinuses and mastoid air cells are clear. A small right scalp contusion is noted. There is no calvarial fracture. IMPRESSION: 1. No acute intracranial findings. Exam mildly compromised by motion artifact. 2. Small right scalp contusion. No calvarial fracture. ACT 112: Negative or not required by law. Electronically signed by: Choco Davidson M.D. 05/02/2021 9:30 AM Hip/Pelvis X-Ray 05/02/21 09:10 XR hip RT 2V w pelvis CLINICAL HISTORY: Right hip pain. Fall COMPARISON STUDY: Pelvis 10/12/2014. FINDINGS: No fracture or dislocation within the pelvis or hips. There is mild osteoarthritis within the bilateral hips, unchanged. The sacrum appears intact. Soft tissues are within normal limits. IMPRESSION: No fracture or dislocation within the pelvis or hips. ACT 112: Negative or not required by law. Electronically signed by: Adebayo Whitehead M.D. 05/02/2021 10:18 AM Venous Doppler Study 05/02/21 10:13 BILATERAL LOWER EXTREMITY VENOUS DOPPLER HISTORY: Lower extremity edema pain COMPARISON STUDY: None. FINDINGS: There is normal compressibility, flow, and augmentation within the bilateral lower extremity deep venous systems. IMPRESSION: No DVT within the right or left lower extremity. ACT 112: Negative or not required by law. Electronically signed by: Adebayo Whitehead M.D. 05/02/2021 11:54 AM Code Status & VTE Plan Code Status Patient tells me that he is DNR/DNI, has living will on file with [facility] Care Time/CCT Total # of Minutes Spent Total Time Spent with Patient: Total time spent is greater than 50% in coordination of care (as documented) at patient's floor/unit and/or counseling patient: Coding Level of Care Code 30807 Initial Inpt Care Lvl 3 Diagnoses Acute on chronic systolic heart failure I50.23 History of coronary artery disease Z86.79 Paroxysmal atrial fibrillation I48.0 CKD (chronic kidney disease) stage 3, GFR 30-59 ml/min N18.32 Chronic kidney disease stage 3 subtype: stage 3b (GFR 30-44) Type 2 diabetes mellitus E11.22; N18.32 Diabetes mellitus correction insulin use: without correction use Diabetes mellitus complication status: with kidney complications Diabetes mellitus complication detail: with chronic kidney disease Chronic kidney disease stage: stage 3 (moderate) Chronic kidney disease stage 3 subtype: stage 3b (GFR 30-44) Hyperlipidemia E78.5 Hyperlipidemia type: unspecified Hypertension I10 Hypertension type: essential hypertension Pleural effusion J90 (1) CKD (chronic kidney disease) stage 3, GFR 30-59 ml/min Chronic kidney disease stage 3 subtype: stage 3b (GFR 30-44) Qualified Code(s): N18.32 - Chronic kidney disease, stage 3b (2) Type 2 diabetes mellitus Diabetes mellitus correction insulin use: without parts counterman use Diabetes mellitus complication status: with kidney complications Diabetes mellitus complication detail: with chronic kidney disease Chronic kidney disease stage: stage 3 (moderate) Chronic kidney disease stage 3 subtype: stage 3b (GFR 30-44) Qualified Code(s): E11.22 - Type 2 diabetes mellitus with diabetic chronic kidney disease; N18.32 - Chronic kidney disease, stage 3b (3) Hyperlipidemia Hyperlipidemia type: unspecified Qualified Code(s): E78.5 - Hyperlipidemia, unspecified (4) Hypertension Hypertension type: essential hypertension Qualified Code(s): I10 - Essential (primary) hypertension
[2021-05-02] MEDS ORDERED: GLUCOSE 10 TABS/TUBE PO PRN (15:32)
[2021-05-02] MEDS ORDERED: NITROGLYCERIN SL 0.4 MG/TAB TAB SL PRN (15:32)
[2021-05-02] MEDS ORDERED: CARBOHYDRATES FOR HYPOGLYCEMIA PO PRN (15:32)
[2021-05-02] MEDS ORDERED: GLUCOSE 40% GEL 15 GM TUBE PO PRN (15:32)
[2021-05-02] MEDS ORDERED: DEXTROSE 50% 50 ML SYRINGE IV PRN (15:32)
[2021-05-02] MEDS ORDERED: GLUCAGON FOR INJ 1 MG VIAL SQ PRN (15:32)
[2021-05-02] MEDS ORDERED: ALBUTEROL HFA 8 GM INHALER INH PRN (15:32)
[2021-05-02] MEDS: BUMETANIDE 2 MG in SYRINGE 0 ML IV SCH (16:07)
[2021-05-02] MEDS: INSULIN ASPART 100 UNITS/ML 3 ML PEN SC SCH ×2 (17:13→20:56)
[2021-05-02] MEDS: ACETAMINOPHEN 325 MG TAB PO PRN (20:19)
[2021-05-02] MEDS: APIXABAN 5 MG TABLET PO SCH (20:20)
[2021-05-02] MEDS: AMIODARONE 200 MG TAB PO SCH (20:23)
[2021-05-02] MEDS: METOPROLOL SUCC 50MG EXT REL TAB PO SCH (20:25)
[2021-05-02] MEDS: COLESTIPOL HCL 1 GM TAB PO SCH (22:36)
--- NOTE | 2021-05-03 05:40 | Electrocardiogram Report ---
Test Reason : Blood Pressure : / mmHG Vent. 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
[2021-05-03 07:06] LABS: Basophils # (auto) 0.01 K/uL (0-0.2); Basophils % (auto) 0.1 %; Eosinophils # (auto) 0.05 K/uL (0-0.5); Eosinophils % (auto) 0.5 %; Hematocrit (blood only) 36.1 % (42-52); Hemoglobin 11.5 g/dL (14.0-18.0); Immature Granulocytes # (auto) 0.02 K/uL (0.00-0.02); Immature Granulocytes % (auto) 0.2 %; Lymphocytes # (auto) 0.47 K/uL (1.2-3.4); Mean Corpuscular Hemoglobin 29.3 pg (25-34); Mean Corpuscular Hgb Conc 31.9 g/dL (32-36); Mean Corpuscular Volume 91.9 fL (80-100); Mean Platelet Volume 10.6 fL (7.4-10.4); Monocytes # (auto) 0.73 K/uL (0.11-0.59); Monocytes % (auto) 7.8 %; Neutrophils # (auto) 8.06 K/uL (1.4-6.5); Neutrophils % (auto) 86.4 %; Platelet Count 235 K/uL (130-400); RDW Coefficient of Variation 17.5 % (11.5-14.5); RDW Standard Deviation 57.5 fL (36.4-46.3); Red Blood Count 3.93 M/uL (4.7-6.1); White Blood Count 9.34 K/uL (4.8-10.8)
[2021-05-03 07:44] LABS: BUN Creatinine Ratio 22.7 (10-20); Calcium 8.5 mg/dl (8.5-10.1); Creatinine Clr Calc Pharmacy 43.8 ml/min; Est GFR (African American) 40.6 ml/min; Estimated Average Glucose 143 mg/dl; Hemoglobin A1C 6.6 % (4.5-5.6); Magnesium 1.6 mg/dl (1.8-2.4); Potassium 3.2 mmol/L (3.5-5.1)
[2021-05-03] MEDS: allopurinoL 100 MG TAB PO SCH (07:57)
[2021-05-03] MEDS: CLOPIDOGREL BISULFATE 75 MG TAB PO SCH (07:57)
[2021-05-03] MEDS: CEROVITE ADV FORMULA TAB PO SCH (07:58)
[2021-05-03] MEDS: SERTRALINE HCL 50 MG TABLET PO SCH (07:58)
[2021-05-03] MEDS: OMEGA-3 (PURIFIED FISH OIL) 1 GM CAP PO SCH (07:58)
[2021-05-03] MEDS: METOPROLOL SUCC 50MG EXT REL TAB PO SCH ×2 (07:58→19:54)
[2021-05-03] MEDS: BUMETANIDE 2 MG in SYRINGE 0 ML IV SCH ×2 (07:58→17:16)
[2021-05-03] MEDS: APIXABAN 5 MG TABLET PO SCH ×2 (07:58→19:54)
[2021-05-03] MEDS: INSULIN ASPART 100 UNITS/ML 3 ML PEN SC SCH ×4 (08:03→19:57)
[2021-05-03] MEDS ORDERED: metOLazone 5 MG TABLET PO SCH (09:00)
--- NOTE | 2021-05-03 09:42 | Cardiology Consultation ---
Date of Consultation May 03, 2021 Assessment & Plan (1) Acute on chronic combined systolic (congestive) and diastolic (congestive) heart failure: No clear precipitants. Increasing diuretic requirement over the last month. Responded to IV Bumex. Renal function stable. Mild residual congestion on exam. Repeat echo to assess mitral valve disease Continue IV Bumex 2 mg twice daily Supplement potassium Received metolazone this morning. We will hold going forward unless inadequate diuresis on Bumex alone Strict Daily I/O, weights. Goal net -1 to 2 L Continue home Toprol-XL. (2) CAD, multiple vessel: No symptoms, objective findings of ACS. Continue antiplatelet therapy with clopidogrel (3) Paroxysmal atrial fibrillation: Remains in sinus rhythm. Continue amiodarone. Continue Eliquis for now. Alternative if renal function declines (4) CKD (chronic kidney disease) stage 3, GFR 30-59 ml/min: Stable from recent baseline. Entresto on hold (5) Venous ulcer of leg: Bilateral lower extreme edema secondary to heart failure and likely some combination of lymphedema, chronic venous insufficiency. Some concern for possible cellulitis. Consider wound culture, antibiotics, wound care involvement will need some form of compressive therapy Venous reflux ultrasound as outpatient to eval for pathologic venous reflux. History of Present Illness Attending Physician: Vinod Rob MD History of Present Illness Mr. Peterson is a very pleasant 76-year-old gentleman with a history significant for CAD status post anterior [place] in August of 2007, multivessel PCI 08/2020, paroxysmal Atrial fibrillation on amiodarone, heart failure with reduced ejection fraction (EF 30 to 35%), type 2 diabetes, hypertension, dyslipidemia intolerant to statin therapy, and remote pulmonary embolism. His primary barrel rifler button is Dr. Canchola. He is followed in the Heart Failure Program with Ms. Lee Ann Kennedy. Patient has been dealing with volume overload, increased dyspnea over the last several weeks. Bumex dose increased to 4 mg twice daily recently and after was seen by Dr. Canchola 2 days ago plan had been to add metolazone as well (not started at home). Has also been dealing with bilateral left greater than right lower extremity/carroll ulcerations being treated by PCP. Was to undergo venous reflux ultrasound yesterday but had a mechanical fall in the parking lot. Taken to ED in the setting of fall, worsened dyspnea. Post fall reports some mild chest discomfort which resolved without intervention. Denies preceding palpitations, presyncope. In ED CT of head/neck unremarkable. Hip/pelvis x-ray without fracture. Venous duplex negative for DVT. Chest x-ray showed pulmonary edema and moderate left pleural effusion. Troponin negative. ECG without dynamic ST changes. BNP elevated to 5000. Serum creatinine mildly to 2.1. Given 2 mg IV Bumex. Overnight -1700. Down 1 pound on home scale. Creatinine down to 1.8. Most recent cardiac studies: August of 2020- PCI of distal RCA to proximal PDA with 3 x 22 mm milena, mid LAD with 2.75 x 15 mm milena, and distal circumflex with 2.75 x 15 mm Xience. His RCA lesion was felt to be the culprit lesion and left to right collaterals are noted. 12/2020 echo: EF 30 to 35%, LV mildly dilated, apex, anterior wall is akinetic. Normal RV function, mildly dilated RV. Moderate MR Allergies Allergy/AdvReac Type Severity Reaction Status Date / Time spironolactone AdvReac Severe Hyperkalemia, Verified 05/02/21 08:46 bradycardia Zkddxyu-Erm-Usq Reductase AdvReac Intermediate Myalgias Verified 05/02/21 08:46 Inhibitor Home Medications Medication Instructions Recorded Confirmed Type allopurinol 300 mg tablet 300 mg PO QAM tab 05/11/19 05/02/21 History hztykjyz-dcm-sqrmq acid 300 1 tab PO QAM 05/11/19 05/02/21 History mcg-lycopene 600 mcg-lutein 300 mcg tablet (Centrum Silver Men) vitamins A,C,W-pauf-ccsjys 14,320 1 cap PO BID 05/11/19 05/02/21 History unit-226 mg-200 unit capsule (PreserVision AREDS) omega 2-yrl-cmh-fish oil 1,000 mg 1 cap PO QAM 05/20/19 05/02/21 History (120 mg-180 mg) capsule (Fish Oil) metformin 500 mg tablet 500 mg PO BIDM #60 tab 08/31/20 05/02/21 Rx amiodarone 200 mg tablet (Pacerone) 200 mg PO HS 10/06/20 05/02/21 History sacubitril 97 mg-valsartan 103 mg 1 tab PO BID #180 tab 11/04/20 05/02/21 Rx tablet (Entresto) sertraline 50 mg tablet (Zoloft) 50 mg PO QAM 11/14/20 05/02/21 History apixaban 5 mg tablet (Eliquis) 5 mg PO BID #180 tab 03/28/21 05/02/21 Rx bumetanide 2 mg tablet 2 mg PO BID #60 tab 03/28/21 05/02/21 Rx metolazone 5 mg tablet 5 mg PO DAILY #7 tab 05/01/21 05/02/21 Rx albuterol sulfate 90 mcg/actuation 2 puff INHALATION Q6H PRN 05/02/21 05/02/21 History aerosol inhaler (Ventolin HFA) clopidogrel 75 mg tablet (Plavix) 75 mg PO QAM 05/02/21 05/02/21 History colestipol 1 gram tablet (Colestid) 2 g PO BID 05/02/21 05/02/21 History ketoconazole 2 % topical cream 1 applic TOPICAL DAILY 05/02/21 05/02/21 History metoprolol succinate 100 mg 100 mg PO BID 05/02/21 05/02/21 History tablet,extended release 24 hr (Toprol XL) nitroglycerin 0.4 mg sublingual 0.4 mg SL Q5M PRN 05/02/21 05/02/21 History tablet (Nitrostat) Patient History Medical History Arthritis back, knees Atrial fibrillation New onset a. fib 08/2020 in setting of NSTEMI (which resulted in placement of 3 stents) Chronic anticoagulation Chronic systolic heart failure CKD (chronic kidney disease) stage 3, GFR 30-59 ml/min Coronary artery disease stent x1 (2006), stents x3 (08/2020) Diastolic CHF Newly diagnosed during 03/2020 admission, responded well to diuretics > discharged on diuretics and referred to HF clinic per cardiology records Gout of ankle Hx of myocardial infarction 2006, NSTEMI (08/2020 > 3 stents) Hyperlipidemia Hypertension Ischemic cardiomyopathy Low back pain Lyme disease hx of 2018 Major depressive disorder Obesity Paroxysmal atrial fibrillation Pulmonary embolism 5+ years ago Type 2 diabetes mellitus NIDDM Surgical History History of prostate biopsy S/P coronary artery stent placement stent x1 (2006), stents x3 (08/2020) Family History Family/Other Prostate cancer Father Heart disease Mother Bone cancer Sister Colon cancer Social History Smoking Status: Never smoker Second Hand Exposure: No; Hx Alcohol Use: No Hx Substance Use: No Preferred Language: Stateless Communication Ability: Effective Leasing Manager Required: No Beliefs That Will Affect Care: None marital status: Single Current Living Situation: Alone current occupational status: retired Other Information That Helps Us Care for You: No Feels Safe at Home: Yes Safety Concerns: Feels Safe At This Time Diet Comment: Has special diet unsure what kind Assistive Devices: Walker Review of Systems Review of Systems: All systems reviewed & are unremarkable except as noted in HPI & below Physical Exam Physical Exam: General: Comfortable, in good spirits HEENT: Sclerae anicteric Lungs: Decreased breath sounds at left base, few crackles at right base Cardiac: Distant heart sounds, regular, bradycardic, 2/6 holosystolic murmur heard best at the apex Vascular: 2+ radial bilaterally Abdomen: Soft, nontender Extremities: Well perfused, 2-3+ bilateral lower extremity edema left greater than right. Superficial ulceration over lateral aspects of bilateral shins greater than 3 cm on left with surrounding erythema. Neuro: Nonfocal Psych: Alert orient x3, normal affect and mood Results & Data ([facility]) Vital Signs (Past 12 Hours) Vital Signs Temp Pulse Pulse Resp BP Pulse Ox 05/03/21 07:36 97.7 F 57 L 20 113/70 93 05/03/21 05:33 62 05/03/21 03:49 97.7 F 54 L 18 111/78 94 05/02/21 23:45 97.9 F 58 L 18 106/67 90 PG Care Time/CCT Total # of Minutes Spent Total Time Spent with Patient: Total time spent is greater than 50% in coordination of care (as documented) at patient's floor/unit and/or counseling patient: Coding Level of Care Code 04966 Initial Inpt Care Lvl 3 Diagnoses Acute on chronic combined systolic (congestive) and diastolic (congestive) heart failure I50.43 CAD, multiple vessel I25.10 Paroxysmal atrial fibrillation I48.0 CKD (chronic kidney disease) stage 3, GFR 30-59 ml/min N18.32 Chronic kidney disease stage 3 subtype: stage 3b (GFR 30-44) Venous ulcer of leg I83.009; L97.909 (1) CKD (chronic kidney disease) stage 3, GFR 30-59 ml/min Chronic kidney disease stage 3 subtype: stage 3b (GFR 30-44) Qualified Code(s): N18.32 - Chronic kidney disease, stage 3b
[2021-05-03] MEDS ORDERED: MICONAZOLE NITRATE POWDER 43 GM EXT PRN (10:08)
[2021-05-03] MEDS: COLESTIPOL HCL 1 GM TAB PO SCH ×2 (10:45→23:16)
[2021-05-03] MEDS ORDERED: POTASSIUM CHLORIDE 20 MEQ/15 ML UDC PO STA (12:34)
[2021-05-03] MEDS: MAGNESIUM SULFATE / D5W 1 GM/100 ML BAG IV SCH ×2 (13:15→15:27)
--- NOTE | 2021-05-03 13:37 | Hospitalist Progress Note ---
Date of Service May 03, 2021 Assessment & Plan (1) Acute on chronic systolic heart failure: Plan: IV Bumex; low threshold to switch to Bumex drip but hold off for now; Entresto could have been continued but now that held hold off immediate resumption (2) Pleural effusion: Plan: At present diuresis; could need thoracocentesis at some point (3) History of coronary artery disease: Plan: May be excessively negatively chronotropically blockedcut back metoprolol (4) Paroxysmal atrial fibrillation: Plan: Continue Eliquis and amiodarone (5) Type 2 diabetes mellitus: Plan: On sliding scale; sugars acceptable at presentno change (6) Hyperlipidemia: Plan: LDL 48no change (7) Hypertension: Plan: No change other than above (8) Acute on chronic renal failure: Plan: Likely CRS; improved; follow for nowunderlying CKD stage III (9) Venous ulcer of leg: Plan: Wound care consult Plan: Watch leukocytosisimproved; wound care consult; anemia can be followed Admission and Anticipated Discharge Date Admission Date: May 02, 2021 Subjective Follow-up of presentation of decompensated heart failure; presented after a fall but found to be in decompensated heart failure; recent symptoms of worsening weeping edema Physical Exam Physical Exam: Constitutional and general: No acute distress, looks biologic age Head and face: No puffiness, atraumatic Eyes: No scleral icterus, extraocular movements normal Neck: Supple, JVD ++ Musculoskeletal: No acute joint swelling, no bony abnormalities Skin/dermatologic/integument: No rash, no purpura Hematologic and lymphatic: pallor +, no petechia Gastrointestinal/abdomen: distended, soft, nonacute Neurologic: Cranial nerves intact, nonfocal Psychiatry: Awake, alert, pleasant, communicative Cardiovascular: Heart rhythm regular, no rub, pansystolic murmur 2 x 6, no gallop Respiratory: Chest movements equal, no use of accessory muscles, decreased breath sounds left more than Extremities: 3-4+ edema, no cyanosis Results & Data Results & Data ([facility]) Vital Signs (Past 12 Hours) Vital Signs Temp Pulse Pulse Resp BP Pulse Ox 05/03/21 10:59 36.4 C L 60 17 115/74 92 05/03/21 08:00 57 L 05/03/21 07:36 36.5 C 57 L 20 113/70 93 09/01/21 05:33 62 05/03/21 03:49 36.5 C 54 L 18 111/78 94 Laboratory Results Laboratory Results - last 24 hr 05/02/21 05/02/21 05/03/21 15:42 20:28 06:45 WBC 9.34 RBC 3.93 L Hgb 11.5 L Hct 36.1 L MCV 91.9 MCH 29.3 MCHC 31.9 L RDW Std Deviation 57.5 H RDW Coeff of Jeff 17.5 H Plt Count 235 MPV 10.6 H Immature Gran % (Auto) 0.2 Neut % (Auto) 86.4 Lymph % (Auto) 5.0 [place] % (Auto) 7.8 Eos % (Auto) 0.5 Baso % (Auto) 0.1 Neut # (Auto) 8.06 H Lymph # (Auto) 0.47 L [place] # (Auto) 0.73 H Eos # (Auto) 0.05 Baso # (Auto) 0.01 Immature Gran # (Auto) 0.02 Sodium Potassium Chloride Carbon Dioxide Anion Gap BUN Creatinine Est Cr Clr Drug Dosing Est GFR ( Amer) Est GFR (Non-Af Amer) BUN/Creatinine Ratio Glucose POC Glucose 132 H 108 H Estimat Average Glucose Hemoglobin A1c Calcium Magnesium Triglycerides Cholesterol LDL Cholesterol, Calc VLDL Cholesterol, Calc HDL Cholesterol Cholesterol/HDL Ratio 05/03/21 05/03/21 05/03/21 06:45 06:45 07:10 WBC RBC Hgb Hct MCV MCH MCHC RDW Std Deviation RDW Coeff of Jeff Plt Count MPV Immature Gran % (Auto) Neut % (Auto) Lymph % (Auto) [place] % (Auto) Eos % (Auto) Baso % (Auto) Neut # (Auto) Lymph # (Auto) [place] # (Auto) Eos # (Auto) Baso # (Auto) Immature Gran # (Auto) Sodium 141 Potassium 3.2 L Chloride 106 Carbon Dioxide 28 Anion Gap 7.0 BUN 41 H Creatinine 1.82 H D Est Cr Clr Drug Dosing 43.8 Est GFR ( Amer) 40.6 Est GFR (Non-Af Amer) 35.0 BUN/Creatinine Ratio 22.7 H Glucose 109 H POC Glucose 107 H Estimat Average Glucose 143 Hemoglobin A1c 6.6 H Calcium 8.5 Magnesium 1.6 L Triglycerides 83 Cholesterol 108 LDL Cholesterol, Calc 48 VLDL Cholesterol, Calc 17 HDL Cholesterol 43 Cholesterol/HDL Ratio 3 05/03/21 07:43 WBC RBC Hgb Hct MCV MCH MCHC RDW Std Deviation RDW Coeff of Jeff Plt Count MPV Immature Gran % (Auto) Neut % (Auto) Lymph % (Auto) [place] % (Auto) Eos % (Auto) Baso % (Auto) Neut # (Auto) Lymph # (Auto) [place] # (Auto) Eos # (Auto) Baso # (Auto) Immature Gran # (Auto) Sodium Potassium Chloride Carbon Dioxide Anion Gap BUN Creatinine Est Cr Clr Drug Dosing Est GFR ( Amer) Est GFR (Non-Af Amer) BUN/Creatinine Ratio Glucose POC Glucose 116 H Estimat Average Glucose Hemoglobin A1c Calcium Magnesium Triglycerides Cholesterol LDL Cholesterol, Calc VLDL Cholesterol, Calc HDL Cholesterol Cholesterol/HDL Ratio PG Care Time/CCT Total # of Minutes Spent Total Time Spent with Patient: Total time spent is greater than 50% in coordination of care (as documented) at patient's floor/unit and/or counseling patient: Coding Level of Care Code 93977 Subseq Hosp Care Lvl 3 Diagnoses Acute on chronic systolic heart failure I50.23 Pleural effusion J90 History of coronary artery disease Z86.79 Paroxysmal atrial fibrillation I48.0 Type 2 diabetes mellitus E11.22; N18.32 Diabetes mellitus terminal block assembler insulin use: without jail use Diabetes mellitus complication status: with kidney complications Diabetes mellitus complication detail: with chronic kidney disease Chronic kidney disease stage: stage 3 (moderate) Chronic kidney disease stage 3 subtype: stage 3b (GFR 30-44) Hyperlipidemia E78.5 Hyperlipidemia type: unspecified Hypertension I10 Hypertension type: essential hypertension Acute on chronic renal failure N17.9; N18.9 Venous ulcer of leg I83.009; L97.909 (1) Type 2 diabetes mellitus Diabetes mellitus terminal block assembler insulin use: without jail use Diabetes mellitus complication status: with kidney complications Diabetes mellitus complication detail: with chronic kidney disease Chronic kidney disease stage: stage 3 (moderate) Chronic kidney disease stage 3 subtype: stage 3b (GFR 30-44) Qualified Code(s): E11.22 - Type 2 diabetes mellitus with diabetic chronic kidney disease; N18.32 - Chronic kidney disease, stage 3b (2) Hyperlipidemia Hyperlipidemia type: unspecified Qualified Code(s): E78.5 - Hyperlipidemia, unspecified (3) Hypertension Hypertension type: essential hypertension Qualified Code(s): I10 - Essential (primary) hypertension
--- NOTE | 2021-05-03 17:20 | XCELERA ---
[id number]
[2021-05-03] MEDS: POLYETHYLENE (MIRALAX) 17 GM PACK PO PRN (18:20)
[2021-05-03] MEDS: AMIODARONE 200 MG TAB PO SCH (19:53)
[2021-05-03] MEDS ORDERED: METOPROLOL SUCC 25MG EXT REL TAB PO SCH (21:00)
--- NOTE | 2021-05-04 05:47 | Electrocardiogram Report ---
Test Reason : Blood Pressure : / mmHG Vent. Rate : 056 BPM Atrial Rate : 326 BPM P-R Int : 000 ms QRS Dur : 134 ms QT Int : 444 ms P-R-T Axes : 000 -43 111 degrees QTc Int : 428 ms Probable Sinus bradycardia with 1st degree A-V block Left axis deviation Non-specific intra-ventricular conduction block Inferior infarct , age undetermined Anterior infarct , age undetermined Nonspecific T wave abnormality Abnormal ECG When compared with ECG of 02-MAY-2021 08:09, Confirmed by Stuart Bentley ([id number]) on 05/04/2021 5:46:56 AM Referred By: REFERRED SELF Confirmed By:Stuart Bentley
[2021-05-04 07:19] LABS: Basophils # (auto) 0.01 K/uL (0-0.2); Basophils % (auto) 0.1 %; Eosinophils # (auto) 0.05 K/uL (0-0.5); Eosinophils % (auto) 0.5 %; Hematocrit (blood only) 35.6 % (42-52); Hemoglobin 11.4 g/dL (14.0-18.0); Immature Granulocytes # (auto) 0.01 K/uL (0.00-0.02); Immature Granulocytes % (auto) 0.1 %; Lymphocytes # (auto) 0.83 K/uL (1.2-3.4); Mean Corpuscular Hemoglobin 29.8 pg (25-34); Mean Platelet Volume 10.5 fL (7.4-10.4); Monocytes # (auto) 0.31 K/uL (0.11-0.59); Monocytes % (auto) 3.4 %; Neutrophils # (auto) 7.99 K/uL (1.4-6.5); Neutrophils % (auto) 86.9 %; Platelet Count 256 K/uL (130-400); RDW Coefficient of Variation 17.3 % (11.5-14.5); RDW Standard Deviation 58.7 fL (36.4-46.3); Red Blood Count 3.83 M/uL (4.7-6.1)
[2021-05-04 07:44] LABS: Albumin Level 3.2 gm/dl (3.4-5.0); BUN Creatinine Ratio 21.2 (10-20); Calcium 9.1 mg/dl (8.5-10.1); Creatinine Clr Calc Pharmacy 46.2 ml/min; Est GFR (African American) 44.4 ml/min; Est GFR (Non-African American) 38.3 ml/min; Magnesium 1.9 mg/dl (1.8-2.4)
[2021-05-04 07:47] LABS: Albumin Globulin Ratio 0.8 (0.9-2); Bilirubin,Total 0.8 mg/dl (0.2-1); Globulin 3.9 gm/dl (2.5-4.0); Total Protein 7.1 gm/dl (6.4-8.2)
[2021-05-04] MEDS: INSULIN ASPART 100 UNITS/ML 3 ML PEN SC SCH ×4 (08:37→21:00)
[2021-05-04] MEDS: APIXABAN 5 MG TABLET PO SCH ×2 (08:38→20:34)
[2021-05-04] MEDS: BUMETANIDE 2 MG in SYRINGE 0 ML IV SCH ×2 (08:38→17:09)
[2021-05-04] MEDS: METOPROLOL SUCC 50MG EXT REL TAB PO SCH ×2 (08:38→20:34)
[2021-05-04] MEDS: CLOPIDOGREL BISULFATE 75 MG TAB PO SCH (08:39)
[2021-05-04] MEDS: SERTRALINE HCL 50 MG TABLET PO SCH (08:39)
[2021-05-04] MEDS: COLESTIPOL HCL 1 GM TAB PO SCH ×2 (08:39→22:02)
[2021-05-04] MEDS: OMEGA-3 (PURIFIED FISH OIL) 1 GM CAP PO SCH (08:39)
[2021-05-04] MEDS: allopurinoL 100 MG TAB PO SCH (08:39)
[2021-05-04] MEDS: CEROVITE ADV FORMULA TAB PO SCH (08:39)
--- NOTE | 2021-05-04 08:46 | Hospitalist Progress Note ---
Date of Service May 04, 2021 Assessment & Plan (1) Acute on chronic systolic heart failure: Plan: Doing better; continue diuresis; cardiology following (2) Pleural effusion: Plan: At present diuresis; could need thoracocentesis at some point; repeat x-ray chest in a.m. (3) History of coronary artery disease: Plan: No angina; no change; cardiology preferred continue metoprolol at prior dosewill defer (4) Paroxysmal atrial fibrillation: Plan: Continue Eliquis and amiodarone (5) Type 2 diabetes mellitus: Plan: On sliding scale; sugars acceptable at presentno change (6) Hyperlipidemia: Plan: LDL 48no change (7) Hypertension: Plan: Acceptable; no change (8) Acute on chronic renal failure: Plan: Likely CRS; improved; follow for nowunderlying CKD stage III (9) Venous ulcer of leg: Plan: Wound care consult (10) Hypokalemia: Plan: Replace Plan: wound care following venous ulcer; anemia can be followed; PT/OTat least will need home health if not short-term rehab Admission and Anticipated Discharge Date Admission Date: May 02, 2021 Subjective Follow-up of presentation of decompensated heart failure; presented after a fall but found to be in decompensated heart failure; doing better Physical Exam Physical Exam: Constitutional and general: No acute distress, looks biologic age Head and face: No puffiness, atraumatic Eyes: No scleral icterus, extraocular movements normal Neck: Supple, JVD much less Musculoskeletal: No acute joint swelling, no bony abnormalities Skin/dermatologic/integument: No rash, no purpura Hematologic and lymphatic: pallor +, no petechia Gastrointestinal/abdomen: distended, soft, nonacute Neurologic: Cranial nerves intact, nonfocal Psychiatry: Awake, alert, pleasant, communicative Cardiovascular: Heart rhythm regular, no rub, pansystolic murmur 2 x 6, no gallop Respiratory: Chest movements equal, no use of accessory muscles, decreased breath sounds left more than Extremities: 3+ edema, no cyanosis Results & Data Results & Data ([facility]) Vital Signs (Past 12 Hours) Vital Signs Temp Pulse Resp BP Pulse Ox 05/04/21 07:45 36.3 C L 58 L 18 110/64 94 05/04/21 03:40 36.3 C L 57 L 19 104/59 L 93 05/03/21 23:47 36.6 C 63 19 106/64 92 Laboratory Results Laboratory Results - last 24 hr 05/03/21 05/03/21 05/04/21 15:57 19:57 06:54 WBC 9.20 RBC 3.83 L Hgb 11.4 L Hct 35.6 L MCV 93.0 MCH 29.8 MCHC 32.0 RDW Std Deviation 58.7 H RDW Coeff of Jeff 17.3 H Plt Count 256 MPV 10.5 H Immature Gran % (Auto) 0.1 Neut % (Auto) 86.9 Lymph % (Auto) 9.0 Ray % (Auto) 3.4 Eos % (Auto) 0.5 Baso % (Auto) 0.1 Neut # (Auto) 7.99 H Lymph # (Auto) 0.83 L Ray # (Auto) 0.31 Eos # (Auto) 0.05 Baso # (Auto) 0.01 Immature Gran # (Auto) 0.01 Sodium Potassium Chloride Carbon Dioxide Anion Gap BUN Creatinine Est Cr Clr Drug Dosing Est GFR ( Amer) Est GFR (Non-Af Amer) BUN/Creatinine Ratio Glucose POC Glucose 128 H 127 H Calcium Magnesium Total Bilirubin AST ALT Alkaline Phosphatase Total Protein Albumin Globulin Albumin/Globulin Ratio 05/04/21 05/04/21 06:54 07:10 WBC RBC Hgb Hct MCV MCH MCHC RDW Std Deviation RDW Coeff of Jeff Plt Count MPV Immature Gran % (Auto) Neut % (Auto) Lymph % (Auto) Ray % (Auto) Eos % (Auto) Baso % (Auto) Neut # (Auto) Lymph # (Auto) Ray # (Auto) Eos # (Auto) Baso # (Auto) Immature Gran # (Auto) Sodium 140 Potassium 3.0 L Chloride 103 Carbon Dioxide 32 Anion Gap 6.0 BUN 36 H Creatinine 1.69 H Est Cr Clr Drug Dosing 46.2 Est GFR ( Amer) 44.4 Est GFR (Non-Af Amer) 38.3 BUN/Creatinine Ratio 21.2 H Glucose 127 H POC Glucose 123 H Calcium 9.1 Magnesium 1.9 Total Bilirubin 0.8 AST 19 ALT 18 Alkaline Phosphatase 225 H Total Protein 7.1 Albumin 3.2 L Globulin 3.9 Albumin/Globulin Ratio 0.8 L PG Care Time/CCT Total # of Minutes Spent Total Time Spent with Patient: Total time spent is greater than 50% in coordination of care (as documented) at patient's floor/unit and/or counseling patient: Coding Level of Care Code 27757 Subseq Hosp Care Lvl 2 Diagnoses Acute on chronic systolic heart failure I50.23 Pleural effusion J90 History of coronary artery disease Z86.79 Paroxysmal atrial fibrillation I48.0 Type 2 diabetes mellitus E11.22; N18.32 Diabetes mellitus moth exterminator insulin use: without moth exterminator use Diabetes mellitus complication status: with kidney complications Diabetes mellitus complication detail: with chronic kidney disease Chronic kidney disease stage: stage 3 (moderate) Chronic kidney disease stage 3 subtype: stage 3b (GFR 30-44) Hyperlipidemia E78.5 Hyperlipidemia type: unspecified Hypertension I10 Hypertension type: essential hypertension Acute on chronic renal failure N17.9; N18.9 Venous ulcer of leg I83.009; L97.909 Hypokalemia E87.6 (1) Type 2 diabetes mellitus Diabetes mellitus intermediate insulin use: without intermediate use Diabetes mellitus complication status: with kidney complications Diabetes mellitus complication detail: with chronic kidney disease Chronic kidney disease stage: stage 3 (moderate) Chronic kidney disease stage 3 subtype: stage 3b (GFR 30-44) Qualified Code(s): E11.22 - Type 2 diabetes mellitus with diabetic chronic kidney disease; N18.32 - Chronic kidney disease, stage 3b (2) Hyperlipidemia Hyperlipidemia type: unspecified Qualified Code(s): E78.5 - Hyperlipidemia, unspecified (3) Hypertension Hypertension type: essential hypertension Qualified Code(s): I10 - Essential (primary) hypertension
[2021-05-04] MEDS: POTASSIUM CHLORIDE CRTAB 20 MEQ TABCR PO SCH ×3 (09:08→20:34)
--- NOTE | 2021-05-04 10:27 | Cardiology Progress Note ---
Date of Service May 04, 2021 Assessment & Plan (1) Acute on chronic combined systolic (congestive) and diastolic (congestive) heart failure: Plan: 2. Multivessel CAD 3. Paroxysmal atrial fibrillation 4. CKD 5. Bilateral venous ulcers, suspected CVI/edema Excellent diuresis yesterday. Renal function stable. Persistent pleural effusion, lower extremity edema on exam. Repeat echo reviewed. LV, mitral valve function unchanged. RV more dilated. Recommend continued IV diuresis today Continue IV Bumex 2 mg twice daily Additional dose of metolazone 5 mg today Supplement potassium Continue current Toprol-XL. Restart home Entresto. Continue amiodarone, Eliquis. Continue clopidogrel Wound care. Outpatient venous reflux study. Admission and Anticipated Discharge Date Admission Date: May 02, 2021 Subjective Feeling better today. Denies significant dyspnea although activity limited to few trips to the bathroom. No chest pain. Negative more than 3 L yesterday. Serum creatinine stable at 1.69 Telemetry reviewedsinus bradycardia in the 50s, low 60s Review of Systems Review of Systems: All systems reviewed & are unremarkable except as noted in HPI & below Physical Exam Physical Exam: General: Comfortable, in good spirits HEENT: Sclerae anicteric Lungs: Decreased breath sounds at left base, clear on the right Cardiac: Distant heart sounds, regular, bradycardic, 2/6 holosystolic murmur heard best at the apex Vascular: 2+ radial bilaterally Abdomen: Soft, nontender Extremities: Well perfused, 2+ bilateral lower extremity edema left greater than right. Superficial ulceration over lateral aspects of bilateral shins, mild surrounding erythema, dressing in place Neuro: Nonfocal Psych: Alert orient x3, normal affect and mood Results & Data ([facility]) Vital Signs (Past 12 Hours) Vital Signs Temp Pulse Resp BP Pulse Ox 05/04/21 07:45 97.3 F L 58 L 18 110/64 94 05/04/21 03:40 97.3 F L 57 L 19 104/59 L 93 05/03/21 23:47 97.9 F 63 19 106/64 92 PG Care Time/CCT Total # of Minutes Spent Total Time Spent with Patient: Total time spent is greater than 50% in coordination of care (as documented) at patient's floor/unit and/or counseling patient: Coding Level of Care Code 68210 Subseq Hosp Care Lvl 3 Diagnoses Acute on chronic combined systolic (congestive) and diastolic (congestive) heart failure I50.43
[2021-05-04] MEDS ORDERED: metOLazone 5 MG TABLET PO ONE (10:45)
[2021-05-04] MEDS: SACUBITRIL-VALSARTAN 97-103 MG TAB PO SCH (20:33)
[2021-05-04] MEDS: AMIODARONE 200 MG TAB PO SCH (20:35)
--- NOTE | 2021-05-05 06:11 | Electrocardiogram Report ---
Test Reason : Blood Pressure : / mmHG Vent. Rate : 058 BPM Atrial Rate : 057 BPM P-R Int : 300 ms QRS Dur : 122 ms QT Int : 518 ms P-R-T Axes : 000 -63 099 degrees QTc Int : 508 ms Sinus bradycardia with 1st degree A-V block Left axis deviation Inferior infarct , age undetermined Anterior infarct , age undetermined Nonspecific T wave abnormality Abnormal ECG When compared with ECG of 03-MAY-2021 06:08, No significant change Confirmed by Stuart Bentley ([id number]) on 05/05/2021 6:10:51 AM Referred By: REFERRED SELF Confirmed By:Stuart Bentley
[2021-05-05 07:08] LABS: Basophils # (auto) 0.02 K/uL (0-0.2); Basophils % (auto) 0.2 %; Hematocrit (blood only) 35.6 % (42-52); Hemoglobin 11.5 g/dL (14.0-18.0); Immature Granulocytes # (auto) 0.03 K/uL (0.00-0.02); Immature Granulocytes % (auto) 0.3 %; Lymphocytes # (auto) 0.57 K/uL (1.2-3.4); Lymphocytes % (auto) 5.6 %; Mean Corpuscular Hemoglobin 29.6 pg (25-34); Mean Corpuscular Hgb Conc 32.3 g/dL (32-36); Mean Corpuscular Volume 91.8 fL (80-100); Mean Platelet Volume 10.6 fL (7.4-10.4); Monocytes # (auto) 0.79 K/uL (0.11-0.59); Monocytes % (auto) 7.8 %; Neutrophils # (auto) 8.67 K/uL (1.4-6.5); Neutrophils % (auto) 85.1 %; Platelet Count 261 K/uL (130-400); RDW Coefficient of Variation 17.7 % (11.5-14.5); RDW Standard Deviation 57.8 fL (36.4-46.3); Red Blood Count 3.88 M/uL (4.7-6.1); White Blood Count 10.18 K/uL (4.8-10.8)
[2021-05-05 07:47] LABS: Albumin Level 3.3 gm/dl (3.4-5.0); BUN Creatinine Ratio 21.7 (10-20); Calcium 9.6 mg/dl (8.5-10.1); Creatinine Clr Calc Pharmacy 43.9 ml/min; Est GFR (African American) 42.6 ml/min; Est GFR (Non-African American) 36.7 ml/min; Magnesium 1.7 mg/dl (1.8-2.4); Potassium 3.3 mmol/L (3.5-5.1)
[2021-05-05 07:49] LABS: Albumin Globulin Ratio 0.9 (0.9-2); Bilirubin,Total 0.9 mg/dl (0.2-1); Globulin 3.7 gm/dl (2.5-4.0)
[2021-05-05] MEDS: BUMETANIDE 2 MG in SYRINGE 0 ML IV SCH ×2 (08:16→17:35)
[2021-05-05] MEDS: CLOPIDOGREL BISULFATE 75 MG TAB PO SCH (08:17)
[2021-05-05] MEDS: OMEGA-3 (PURIFIED FISH OIL) 1 GM CAP PO SCH (08:17)
[2021-05-05] MEDS: SERTRALINE HCL 50 MG TABLET PO SCH (08:17)
[2021-05-05] MEDS: allopurinoL 100 MG TAB PO SCH (08:17)
[2021-05-05] MEDS: METOPROLOL SUCC 50MG EXT REL TAB PO SCH ×2 (08:17→20:33)
[2021-05-05] MEDS: SACUBITRIL-VALSARTAN 97-103 MG TAB PO SCH ×2 (08:17→20:33)
[2021-05-05] MEDS: CEROVITE ADV FORMULA TAB PO SCH (08:17)
[2021-05-05] MEDS: APIXABAN 5 MG TABLET PO SCH ×2 (08:17→20:32)
[2021-05-05] MEDS: INSULIN ASPART 100 UNITS/ML 3 ML PEN SC SCH ×4 (08:19→20:34)
--- NOTE | 2021-05-05 09:19 | XRay Report ---
XR chest 2V PA/lateral HISTORY: Follow-up Pleural effusion COMPARISON: Chest 05/02/2021. FINDINGS: No pneumothorax. Moderate left pleural effusion and left basilar densities remain unchanged . No right pleural effusion. The heart remains mildly enlarged. There is mild central pulmonary vascu lar congestion without overt edema. IMPRESSION: No change in the moderate left pleural effusion. The pulmonary vasculature congestion has improved. ACT 112: Negative or not required by law. Electronically signed by: Adebayo Whitehead M.D. 05/05/2021 9:18 AM
--- NOTE | 2021-05-05 09:25 | Cardiology Progress Note ---
Date of Service May 05, 2021 Assessment & Plan (1) Acute on chronic systolic heart failure: Plan: 2. Multivessel CAD 3. Paroxysmal atrial fibrillation 4. CKD 5. Bilateral venous ulcers, suspected CVI/edema Patient continues with significant diuresis, Negative additional 2.8L, net negative nearly 8L. Continues to have signs of congestion with lower extremity edema and likely left pleural effusion. Creatinine slightly higher today and persistent mild hypokalemia. --Plan to hold metolazone --Consider additional potassium supplement --Continue IV Bumex 2 mg BID today, transition to p.o. diuretics over the weekend if continued improvement --Low sodium diet, daily weights, strict I&Os --Continue Toprol XL, Entresto --Continue amiodarone --Continue Eliquis, clopidogrel --Wound care --Will need close followup in our office and with CHF clinic upon discharge --Outpatient venous reflux study (2) Acute on chronic combined systolic (congestive) and diastolic (congestive) heart failure: Admission and Anticipated Discharge Date Admission Date: May 02, 2021 Subjective Patient reports further improvement in his dyspnea and fatigue. Walked the halls yesterday, still with limiting dyspnea but was able to walk much further than he had prior to hospitalization. No orthopnea or PND. Did sleep in his chair last night due to frequent urination. Still with lower extremity edema. No chest pain, ribs are sore with certain movements which he attributes to his fall. No syncope or palpitations. Tele reviewed--no events Negative additional 2.8L, weight continues to trend down Physical Exam Physical Exam: General: Comfortable, no acute distress HEENT: Sclerae anicteric Lungs: Decreased breath sounds at left base, clear on the right Cardiac: Regular, bradycardic. Distant heart sounds. 2/6 holosystolic murmur heard best at the apex Vascular: 2+ radial bilaterally Abdomen: Soft, nontender Extremities: --well perfused --2+ bilateral lower extremity edema. --Superficial ulcers bilateral shins, minimal drainage, no periwound inflammation Neuro: Nonfocal Psych: Alert orient x3, normal affect and mood Results & Data ([facility]) Vital Signs (Past 12 Hours) Vital Signs Temp Pulse Pulse Resp BP BP Pulse Ox 05/05/21 07:35 36.7 C 80 20 105/67 97 05/05/21 03:50 36.4 C L 59 L 18 118/76 93 05/05/21 01:21 71 05/04/21 23:07 36.4 C L 70 20 104/64 91 Laboratory Results Laboratory Results - last 24 hr 05/04/21 05/04/21 05/04/21 11:07 16:17 20:45 WBC RBC Hgb Hct MCV MCH MCHC RDW Std Deviation RDW Coeff of Jeff Plt Count MPV Immature Gran % (Auto) Neut % (Auto) Lymph % (Auto) [place] % (Auto) Eos % (Auto) Baso % (Auto) Neut # (Auto) Lymph # (Auto) [place] # (Auto) Eos # (Auto) Baso # (Auto) Immature Gran # (Auto) Sodium Potassium Chloride Carbon Dioxide Anion Gap BUN Creatinine Est Cr Clr Drug Dosing Est GFR ( Amer) Est GFR (Non-Af Amer) BUN/Creatinine Ratio Glucose POC Glucose 130 H 131 H 144 H Calcium Magnesium Total Bilirubin AST ALT Alkaline Phosphatase Total Protein Albumin Globulin Albumin/Globulin Ratio 05/05/21 05/05/21 05/05/21 06:50 06:50 07:17 WBC 10.18 RBC 3.88 L Hgb 11.5 L Hct 35.6 L MCV 91.8 MCH 29.6 MCHC 32.3 RDW Std Deviation 57.8 H RDW Coeff of Jeff 17.7 H Plt Count 261 MPV 10.6 H Immature Gran % (Auto) 0.3 Neut % (Auto) 85.1 Lymph % (Auto) 5.6 [place] % (Auto) 7.8 Eos % (Auto) 1.0 Baso % (Auto) 0.2 Neut # (Auto) 8.67 H Lymph # (Auto) 0.57 L [place] # (Auto) 0.79 H Eos # (Auto) 0.10 Baso # (Auto) 0.02 Immature Gran # (Auto) 0.03 H Sodium 140 Potassium 3.3 L Chloride 103 Carbon Dioxide 32 Anion Gap 5.0 BUN 38 H Creatinine 1.75 H Est Cr Clr Drug Dosing 43.9 Est GFR ( Amer) 42.6 Est GFR (Non-Af Amer) 36.7 BUN/Creatinine Ratio 21.7 H Glucose 118 H POC Glucose 135 H Calcium 9.6 Magnesium 1.7 L Total Bilirubin 0.9 AST 22 ALT 21 Alkaline Phosphatase 229 H Total Protein 7.0 Albumin 3.3 L Globulin 3.7 Albumin/Globulin Ratio 0.9 PG Care Time/CCT Total # of Minutes Spent Total Time Spent with Patient: Total time spent is greater than 50% in coordination of care (as documented) at patient's floor/unit and/or counseling patient: Coding Level of Care Code 45378 Subseq Hosp Care Lvl 3 Diagnoses Acute on chronic systolic heart failure I50.23 Acute on chronic combined systolic (congestive) and diastolic (congestive) heart failure I50.43
[2021-05-05] MEDS: TRIAMCINOLONE ACET NASAL SPRAY 10.8ML BTL NAE SCH (09:28)
--- NOTE | 2021-05-05 10:13 | Hospitalist Progress Note ---
Date of Service May 05, 2021 Assessment & Plan (1) Acute on chronic systolic heart failure: Plan: Doing betterweights do not correlate but and likely spurious; continue diuresis; cardiology following (2) Pleural effusion: Plan: Persists but overall fluid status betterinclined to still observe and continue diuresis (3) History of coronary artery disease: Plan: No angina; follow clinically (4) Paroxysmal atrial fibrillation: Plan: Continue Eliquis and amiodarone (5) Type 2 diabetes mellitus: Plan: On sliding scale; sugars acceptable at presentno change (6) Hyperlipidemia: Plan: LDL 48no change (7) Hypertension: Plan: Acceptable; no change (8) Acute on chronic renal failure: Plan: Likely CRS; improved to stablefollowunderlying CKD stage III (9) Venous ulcer of leg: Plan: Wound care consulted (10) Hypokalemia: Plan: Replace Plan: wound care following venous ulcer; anemia can be followed; PT/OTat least will need home health if not short-term rehab; replace magnesium Admission and Anticipated Discharge Date Admission Date: May 02, 2021 Subjective Original presentation with fall; however, when he presented for evaluation of same reported increased lower extremity weeping edema and found to be in decompensated heart failurebeing diuresed; doing better but still weeping edema Physical Exam Physical Exam: Constitutional and general: No acute distress, looks biologic age Head and face: No puffiness, atraumatic Eyes: No scleral icterus, extraocular movements normal Neck: Supple, JVD much less Musculoskeletal: No acute joint swelling, no bony abnormalities Skin/dermatologic/integument: No rash, no purpura Hematologic and lymphatic: pallor +, no petechia Gastrointestinal/abdomen: distended, soft, nonacute Neurologic: Cranial nerves intact, nonfocal Psychiatry: Awake, alert, pleasant, communicative Cardiovascular: Heart rhythm regular, no rub, pansystolic murmur 2 x 6, no gallop Respiratory: Chest movements equal, no use of accessory muscles, decreased breath sounds left more than right Extremities: 3+ edema, no cyanosis Results & Data Results & Data ([facility]) Vital Signs (Past 12 Hours) Vital Signs Temp Pulse Pulse Resp BP BP Pulse Ox 05/05/21 07:35 36.7 C 80 20 105/67 97 05/05/21 03:50 36.4 C L 59 L 18 118/76 93 09/03/21 01:21 71 05/04/21 23:07 36.4 C L 70 20 104/64 91 Laboratory Results Laboratory Results - last 24 hr 05/04/21 05/04/21 05/04/21 11:07 16:17 20:45 WBC RBC Hgb Hct MCV MCH MCHC RDW Std Deviation RDW Coeff of Jeff Plt Count MPV Immature Gran % (Auto) Neut % (Auto) Lymph % (Auto) [place] % (Auto) Eos % (Auto) Baso % (Auto) Neut # (Auto) Lymph # (Auto) [place] # (Auto) Eos # (Auto) Baso # (Auto) Immature Gran # (Auto) Sodium Potassium Chloride Carbon Dioxide Anion Gap BUN Creatinine Est Cr Clr Drug Dosing Est GFR ( Amer) Est GFR (Non-Af Amer) BUN/Creatinine Ratio Glucose POC Glucose 130 H 131 H 144 H Calcium Magnesium Total Bilirubin AST ALT Alkaline Phosphatase Total Protein Albumin Globulin Albumin/Globulin Ratio 05/05/21 05/05/21 05/05/21 06:50 06:50 07:17 WBC 10.18 RBC 3.88 L Hgb 11.5 L Hct 35.6 L MCV 91.8 MCH 29.6 MCHC 32.3 RDW Std Deviation 57.8 H RDW Coeff of Jeff 17.7 H Plt Count 261 MPV 10.6 H Immature Gran % (Auto) 0.3 Neut % (Auto) 85.1 Lymph % (Auto) 5.6 [place] % (Auto) 7.8 Eos % (Auto) 1.0 Baso % (Auto) 0.2 Neut # (Auto) 8.67 H Lymph # (Auto) 0.57 L [place] # (Auto) 0.79 H Eos # (Auto) 0.10 Baso # (Auto) 0.02 Immature Gran # (Auto) 0.03 H Sodium 140 Potassium 3.3 L Chloride 103 Carbon Dioxide 32 Anion Gap 5.0 BUN 38 H Creatinine 1.75 H Est Cr Clr Drug Dosing 43.9 Est GFR ( Amer) 42.6 Est GFR (Non-Af Amer) 36.7 BUN/Creatinine Ratio 21.7 H Glucose 118 H POC Glucose 135 H Calcium 9.6 Magnesium 1.7 L Total Bilirubin 0.9 AST 22 ALT 21 Alkaline Phosphatase 229 H Total Protein 7.0 Albumin 3.3 L Globulin 3.7 Albumin/Globulin Ratio 0.9 PG Care Time/CCT Total # of Minutes Spent Total Time Spent with Patient: Total time spent is greater than 50% in coordination of care (as documented) at patient's floor/unit and/or counseling patient: Coding Level of Care Code 19907 Subseq Hosp Care Lvl 2 Diagnoses Acute on chronic systolic heart failure I50.23 Pleural effusion J90 History of coronary artery disease Z86.79 Paroxysmal atrial fibrillation I48.0 Type 2 diabetes mellitus E11.22; N18.32 Diabetes mellitus ad terminal makeup operator insulin use: without ad terminal makeup operator use Diabetes mellitus complication status: with kidney complications Diabetes mellitus complication detail: with chronic kidney disease Chronic kidney disease stage: stage 3 (moderate) Chronic kidney disease stage 3 subtype: stage 3b (GFR 30-44) Hyperlipidemia E78.5 Hyperlipidemia type: unspecified Hypertension I10 Hypertension type: essential hypertension Acute on chronic renal failure N17.9; N18.9 Venous ulcer of leg I83.009; L97.909 Hypokalemia E87.6 (1) Type 2 diabetes mellitus Diabetes mellitus ad terminal makeup operator insulin use: without mcfp use Diabetes mellitus complication status: with kidney complications Diabetes mellitus complication detail: with chronic kidney disease Chronic kidney disease stage: stage 3 (moderate) Chronic kidney disease stage 3 subtype: stage 3b (GFR 30-44) Qualified Code(s): E11.22 - Type 2 diabetes mellitus with diabetic chronic kidney disease; N18.32 - Chronic kidney disease, stage 3b (2) Hyperlipidemia Hyperlipidemia type: unspecified Qualified Code(s): E78.5 - Hyperlipidemia, unspecified (3) Hypertension Hypertension type: essential hypertension Qualified Code(s): I10 - Essential (primary) hypertension
[2021-05-05] MEDS: POTASSIUM CHLORIDE CRTAB 20 MEQ TABCR PO SCH (11:26)
[2021-05-05] MEDS: COLESTIPOL HCL 1 GM TAB PO SCH ×2 (11:26→21:57)
[2021-05-05] MEDS: MAGNESIUM SULFATE / D5W 1 GM/100 ML BAG IV SCH ×2 (11:27→13:33)
[2021-05-05] MEDS: AMIODARONE 200 MG TAB PO SCH (20:32)
[2021-05-06 06:46] LABS: Basophils # (auto) 0.01 K/uL (0-0.2); Basophils % (auto) 0.1 %; Eosinophils # (auto) 0.19 K/uL (0-0.5); Eosinophils % (auto) 1.8 %; Hematocrit (blood only) 35.8 % (42-52); Hemoglobin 11.6 g/dL (14.0-18.0); Immature Granulocytes # (auto) 0.01 K/uL (0.00-0.02); Immature Granulocytes % (auto) 0.1 %; Lymphocytes # (auto) 0.55 K/uL (1.2-3.4); Lymphocytes % (auto) 5.2 %; Mean Corpuscular Hemoglobin 29.4 pg (25-34); Mean Corpuscular Hgb Conc 32.4 g/dL (32-36); Mean Corpuscular Volume 90.6 fL (80-100); Mean Platelet Volume 10.3 fL (7.4-10.4); Monocytes # (auto) 0.83 K/uL (0.11-0.59); Monocytes % (auto) 7.8 %; Neutrophils # (auto) 9.01 K/uL (1.4-6.5); Platelet Count 263 K/uL (130-400); RDW Coefficient of Variation 17.5 % (11.5-14.5); RDW Standard Deviation 56.7 fL (36.4-46.3); Red Blood Count 3.95 M/uL (4.7-6.1)
[2021-05-06 07:24] LABS: Albumin Level 3.2 gm/dl (3.4-5.0); BUN Creatinine Ratio 24.3 (10-20); Calcium 9.4 mg/dl (8.5-10.1); Creatinine Clr Calc Pharmacy 40.5 ml/min; Est GFR (African American) 38.8 ml/min; Est GFR (Non-African American) 33.5 ml/min; Potassium 2.9 mmol/L (3.5-5.1)
[2021-05-06 07:27] LABS: Albumin Globulin Ratio 0.9 (0.9-2); Bilirubin,Total 0.8 mg/dl (0.2-1); Globulin 3.8 gm/dl (2.5-4.0)
--- NOTE | 2021-05-06 07:41 | Hospitalist Progress Note ---
Date of Service May 06, 2021 Assessment & Plan (1) Acute on chronic systolic heart failure: Plan: Doing betterpossibly relatively overdiuresis given renal parameters and low blood pressurehold Bumex; resume p.o. dose when appropriate; cardiology following and can defer (2) Pleural effusion: Plan: Persists but overall fluid status betterinclined to observe (3) History of coronary artery disease: Plan: No angina; follow clinically (4) Paroxysmal atrial fibrillation: Plan: Continue Eliquis and amiodarone; noted chronotropic blockage, discussed with cardiology before and they prefer the current metoprolol (5) Type 2 diabetes mellitus: Plan: On sliding scale; sugars acceptable at presentno change (6) Hyperlipidemia: Plan: LDL 48no change (7) Hypertension: Plan: If at all lowsee above (8) Acute on chronic renal failure: Plan: Mildly worsening parameters likely represent overdiuresissee above (9) Venous ulcer of leg: Plan: Wound care consulted (10) Hypokalemia: Plan: Replace again Plan: wound care following venous ulcer; anemia can be followed Admission and Anticipated Discharge Date Admission Date: May 02, 2021 Subjective Original presentation with fall; however, when he presented for evaluation of same reported increased lower extremity weeping edema and found to be in decompensated heart failurebeing diuresed; doing better; Overnight low blood pressureasymptomatic Physical Exam Physical Exam: Constitutional and general: No acute distress, looks biologic age Head and face: No puffiness, atraumatic Eyes: No scleral icterus, extraocular movements normal Neck: Supple, JVD none Musculoskeletal: No acute joint swelling, no bony abnormalities Skin/dermatologic/integument: No rash, no purpura Hematologic and lymphatic: pallor +, no petechia Gastrointestinal/abdomen: distended, soft, nonacute Neurologic: Cranial nerves intact, nonfocal Psychiatry: Awake, alert, pleasant, communicative Cardiovascular: Heart rhythm regular, no rub, pansystolic murmur 2 x 6, no gallop Respiratory: Chest movements equal, no use of accessory muscles, decreased breath sounds left more than right Extremities: 2+ edema, no cyanosis Results & Data Results & Data ([facility]) Vital Signs (Past 12 Hours) Vital Signs Temp Pulse Pulse Resp BP Pulse Ox 05/06/21 04:33 90/50 L 05/06/21 04:08 36.4 C L 54 L 20 78/45 L 95 05/06/21 00:00 61 05/05/21 23:27 36.6 C 56 L 20 96/59 L 92 Laboratory Results Laboratory Results - last 24 hr 05/05/21 05/05/21 05/05/21 06:50 11:18 16:09 WBC RBC Hgb Hct MCV MCH MCHC RDW Std Deviation RDW Coeff of Jeff Plt Count MPV Immature Gran % (Auto) Neut % (Auto) Lymph % (Auto) [place] % (Auto) Eos % (Auto) Baso % (Auto) Neut # (Auto) Lymph # (Auto) [place] # (Auto) Eos # (Auto) Baso # (Auto) Immature Gran # (Auto) Sodium 140 Potassium 3.3 L Chloride 103 Carbon Dioxide 32 Anion Gap 5.0 BUN 38 H Creatinine 1.75 H Est Cr Clr Drug Dosing 43.9 Est GFR ( Amer) 42.6 Est GFR (Non-Af Amer) 36.7 BUN/Creatinine Ratio 21.7 H Glucose 118 H POC Glucose 134 H 122 H Calcium 9.6 Magnesium 1.7 L Total Bilirubin 0.9 AST 22 ALT 21 Alkaline Phosphatase 229 H Total Protein 7.0 Albumin 3.3 L Globulin 3.7 Albumin/Globulin Ratio 0.9 05/05/21 05/06/21 05/06/21 19:55 06:23 06:23 WBC 10.60 RBC 3.95 L Hgb 11.6 L Hct 35.8 L MCV 90.6 MCH 29.4 MCHC 32.4 RDW Std Deviation 56.7 H RDW Coeff of Jeff 17.5 H Plt Count 263 MPV 10.3 Immature Gran % (Auto) 0.1 Neut % (Auto) 85.0 Lymph % (Auto) 5.2 [place] % (Auto) 7.8 Eos % (Auto) 1.8 Baso % (Auto) 0.1 Neut # (Auto) 9.01 H Lymph # (Auto) 0.55 L [place] # (Auto) 0.83 H Eos # (Auto) 0.19 Baso # (Auto) 0.01 Immature Gran # (Auto) 0.01 Sodium 139 Potassium 2.9 L Chloride 100 Carbon Dioxide 32 Anion Gap 7.0 BUN 46 H Creatinine 1.89 H Est Cr Clr Drug Dosing 40.5 Est GFR ( Amer) 38.8 Est GFR (Non-Af Amer) 33.5 BUN/Creatinine Ratio 24.3 H Glucose 115 H POC Glucose 138 H Calcium 9.4 Magnesium 2.0 Total Bilirubin 0.8 AST 20 ALT 20 Alkaline Phosphatase 226 H Total Protein 7.0 Albumin 3.2 L Globulin 3.8 Albumin/Globulin Ratio 0.9 05/06/21 07:29 WBC RBC Hgb Hct MCV MCH MCHC RDW Std Deviation RDW Coeff of Jeff Plt Count MPV Immature Gran % (Auto) Neut % (Auto) Lymph % (Auto) [place] % (Auto) Eos % (Auto) Baso % (Auto) Neut # (Auto) Lymph # (Auto) [place] # (Auto) Eos # (Auto) Baso # (Auto) Immature Gran # (Auto) Sodium Potassium Chloride Carbon Dioxide Anion Gap BUN Creatinine Est Cr Clr Drug Dosing Est GFR ( Amer) Est GFR (Non-Af Amer) BUN/Creatinine Ratio Glucose POC Glucose 135 H Calcium Magnesium Total Bilirubin AST ALT Alkaline Phosphatase Total Protein Albumin Globulin Albumin/Globulin Ratio PG Care Time/CCT Total # of Minutes Spent Total Time Spent with Patient: Total time spent is greater than 50% in coordination of care (as documented) at patient's floor/unit and/or counseling patient: Coding Level of Care Code 76869 Subseq Hosp Care Lvl 2 Diagnoses Acute on chronic systolic heart failure I50.23 Pleural effusion J90 History of coronary artery disease Z86.79 Paroxysmal atrial fibrillation I48.0 Type 2 diabetes mellitus E11.22; N18.32 Chronic kidney disease stage: stage 3 (moderate) Chronic kidney disease stage 3 subtype: stage 3b (GFR 30-44) Diabetes mellitus complication detail: with chronic kidney disease Diabetes mellitus complication status: with kidney complications Diabetes mellitus retirement insulin use: without retirement use Hyperlipidemia E78.5 Hyperlipidemia type: unspecified Hypertension I10 Hypertension type: essential hypertension Acute on chronic renal failure N17.9; N18.9 Venous ulcer of leg I83.009; L97.909 Hypokalemia E87.6 (1) Type 2 diabetes mellitus Chronic kidney disease stage: stage 3 (moderate) Chronic kidney disease stage 3 subtype: stage 3b (GFR 30-44) Diabetes mellitus complication detail: with chronic kidney disease Diabetes mellitus complication status: with kidney complications Diabetes mellitus intermission coordinator insulin use: without retirement use Qualified Code(s): E11.22 - Type 2 diabetes mellitus with diabetic chronic kidney disease; N18.32 - Chronic kidney disease, stage 3b (2) Hyperlipidemia Hyperlipidemia type: unspecified Qualified Code(s): E78.5 - Hyperlipidemia, unspecified (3) Hypertension Hypertension type: essential hypertension Qualified Code(s): I10 - Essential (primary) hypertension
[2021-05-06] MEDS: SACUBITRIL-VALSARTAN 97-103 MG TAB PO SCH ×2 (08:20→20:23)
[2021-05-06] MEDS: allopurinoL 100 MG TAB PO SCH (08:20)
[2021-05-06] MEDS: CEROVITE ADV FORMULA TAB PO SCH (08:20)
[2021-05-06] MEDS: POTASSIUM CHLORIDE CRTAB 20 MEQ TABCR PO SCH (08:20)
[2021-05-06] MEDS: OMEGA-3 (PURIFIED FISH OIL) 1 GM CAP PO SCH (08:20)
[2021-05-06] MEDS: CLOPIDOGREL BISULFATE 75 MG TAB PO SCH (08:20)
[2021-05-06] MEDS: SERTRALINE HCL 50 MG TABLET PO SCH (08:21)
[2021-05-06] MEDS: APIXABAN 5 MG TABLET PO SCH ×2 (08:21→20:20)
[2021-05-06] MEDS: TRIAMCINOLONE ACET NASAL SPRAY 10.8ML BTL NAE SCH (08:22)
[2021-05-06] MEDS: INSULIN ASPART 100 UNITS/ML 3 ML PEN SC SCH ×4 (08:24→20:24)
[2021-05-06] MEDS: POTASSIUM CHLORIDE / WTR 10 MEQ/100 ML PLCT IV SCH ×4 (08:28→11:35)
[2021-05-06] MEDS: METOPROLOL SUCC 50MG EXT REL TAB PO SCH ×2 (09:33→20:22)
[2021-05-06] MEDS: COLESTIPOL HCL 1 GM TAB PO SCH ×2 (10:31→22:43)
[2021-05-06] MEDS: AMIODARONE 200 MG TAB PO SCH (20:20)
[2021-05-07 05:53] LABS: Basophils # (auto) 0.02 K/uL (0-0.2); Basophils % (auto) 0.2 %; Eosinophils # (auto) 0.17 K/uL (0-0.5); Eosinophils % (auto) 1.7 %; Hematocrit (blood only) 34.6 % (42-52); Hemoglobin 11.1 g/dL (14.0-18.0); Immature Granulocytes # (auto) 0.02 K/uL (0.00-0.02); Immature Granulocytes % (auto) 0.2 %; Lymphocytes # (auto) 0.62 K/uL (1.2-3.4); Lymphocytes % (auto) 6.3 %; Mean Corpuscular Hemoglobin 29.7 pg (25-34); Mean Corpuscular Hgb Conc 32.1 g/dL (32-36); Mean Corpuscular Volume 92.5 fL (80-100); Mean Platelet Volume 10.3 fL (7.4-10.4); Monocytes # (auto) 0.78 K/uL (0.11-0.59); Monocytes % (auto) 7.9 %; Neutrophils # (auto) 8.22 K/uL (1.4-6.5); Neutrophils % (auto) 83.7 %; Platelet Count 269 K/uL (130-400); RDW Coefficient of Variation 17.3 % (11.5-14.5); RDW Standard Deviation 57.4 fL (36.4-46.3); Red Blood Count 3.74 M/uL (4.7-6.1); White Blood Count 9.83 K/uL (4.8-10.8)
[2021-05-07 06:43] LABS: Albumin Level 3.1 gm/dl (3.4-5.0); BUN Creatinine Ratio 26.3 (10-20); Calcium 9.1 mg/dl (8.5-10.1); Creatinine Clr Calc Pharmacy 39.1 ml/min; Est GFR (African American) 36.9 ml/min; Est GFR (Non-African American) 31.8 ml/min; Magnesium 2.3 mg/dl (1.8-2.4); Potassium 3.5 mmol/L (3.5-5.1)
[2021-05-07 06:45] LABS: Albumin Globulin Ratio 0.8 (0.9-2); Bilirubin,Total 0.7 mg/dl (0.2-1); Globulin 3.8 gm/dl (2.5-4.0); Total Protein 6.9 gm/dl (6.4-8.2)
[2021-05-07] MEDS: INSULIN ASPART 100 UNITS/ML 3 ML PEN SC SCH ×4 (08:30→21:43)
[2021-05-07] MEDS: CEROVITE ADV FORMULA TAB PO SCH (08:48)
[2021-05-07] MEDS: OMEGA-3 (PURIFIED FISH OIL) 1 GM CAP PO SCH (08:48)
[2021-05-07] MEDS: APIXABAN 5 MG TABLET PO SCH ×2 (08:48→20:24)
[2021-05-07] MEDS: METOPROLOL SUCC 50MG EXT REL TAB PO SCH ×2 (08:48→20:25)
[2021-05-07] MEDS: allopurinoL 100 MG TAB PO SCH (08:48)
[2021-05-07] MEDS: CLOPIDOGREL BISULFATE 75 MG TAB PO SCH (08:48)
[2021-05-07] MEDS: SERTRALINE HCL 50 MG TABLET PO SCH (08:49)
[2021-05-07] MEDS: POTASSIUM CHLORIDE CRTAB 20 MEQ TABCR PO SCH (08:49)
[2021-05-07] MEDS: TRIAMCINOLONE ACET NASAL SPRAY 10.8ML BTL NAE SCH (08:52)
[2021-05-07] MEDS: COLESTIPOL HCL 1 GM TAB PO SCH ×2 (10:57→21:44)
--- NOTE | 2021-05-07 18:49 | Hospitalist Progress Note ---
Date of Service May 07, 2021 Assessment & Plan (1) Acute on chronic combined systolic and diastolic CHF (congestive heart failure): Plan: clinically stable/improved. diuretics placed on hold due to rise in creatinine and drop in BPs. cont metoprolol but reduce dose to 50mg BID. cont Entresto but lower dose by 50%. reassess BMP and BPs in am. daily weights. (2) Hypotension: Plan: suspect 2nd over-diuresis. He is nearly 20 pounds down from weight at admission. see #1 above. follow carefully. (3) Pleural effusion: Plan: left stable sats in room air mild-moderate in size would observe; LOREDO is at his usual baseline; consider thoracentesis if it worsens (4) History of coronary artery disease: Plan: no chest pain / ischemic symptoms cont BB cont plavix unfortunately he is statin intolerant (5) Paroxysmal atrial fibrillation: Plan: Continue Eliquis and amiodarone Continue metoprolol succinate but dose reduced to 50mg BID given his low BPs Remains in NSR on the monitor (6) Type 2 diabetes mellitus: Plan: Controlled w/ novolog sliding scale (7) Hyperlipidemia: Plan: LDL 48 off of any statin agent cont colestipol (8) Hypertension: Plan: now with low BPs - see above (9) Acute on chronic renal failure: Plan: rise in Cr likely 2nd diuresis baseline Creatinine 1.5 to 1.6 stage 3 CKD acute kidnye injury --- Cr today - 1.97 hold diuretics repeat BMP am (10) Venous ulcer of leg: Plan: Wound care consulted and recs appreciated (11) Hypokalemia: Plan: resolved (12) Weakness: Plan: deconditioning in the setting of severe systolic CHF and other medical problems cont PT/OT he walked in hallway today and was very fatigued uncertain if he will need rehab post-d/c needs repeat PT/OT evals given his worsening walking (13) DVT prophylaxis: Plan: eliquis BID will update family Plan: care plan d/w Dr Ness from [facility] cardiology Admission and Anticipated Discharge Date Admission Date: May 02, 2021 Subjective patient sitting in chair about to eat lunch during my visit. c/o weakness, fatigue, and LOREDO with walking but otherwise doing ok. he does report improvement in his LE edema. eating well. he states he has 15 steps to get up the stairs in his condo building, and additional steps once he is within his condo. walking to bathroom ok. denies chest pain. tele - sinus bradycardia or NSR. Review of Systems Review of Systems: gen - no fevers, no chills CV - no palpitations or chest pain pulm - no cough GI - no abd pain, nausea, or emesis Physical Exam Physical Exam: gen - obese, NAD, a/o x 3 neck - no JVD ENT - MMM heart - keyur, s1 s2, no murmur lungs - decreased BS left base, ow CTA b/l abd - soft NT ND BS+; no HSM ext - 2+ edema from feet up to the knees, pulses 2+ b/l skin - dressings intact b/l shins; stasis changes b/l shins Results & Data Results & Data ([facility]) Vital Signs (Past 12 Hours) Vital Signs Temp Pulse Pulse Resp BP Pulse Ox 05/07/21 15:40 36.6 C 55 L 16 95/59 L 93 05/07/21 12:08 36.4 C L 56 L 16 97/58 L 95 05/07/21 08:00 55 L 05/07/21 07:44 36.3 C L 57 L 16 90/51 L 94 Laboratory Results Laboratory Results - last 24 hr 05/06/21 05/07/21 05/07/21 20:07 05:25 05:25 WBC 9.83 RBC 3.74 L Hgb 11.1 L Hct 34.6 L MCV 92.5 MCH 29.7 MCHC 32.1 RDW Std Deviation 57.4 H RDW Coeff of Jeff 17.3 H Plt Count 269 MPV 10.3 Immature Gran % (Auto) 0.2 Neut % (Auto) 83.7 Lymph % (Auto) 6.3 [place] % (Auto) 7.9 Eos % (Auto) 1.7 Baso % (Auto) 0.2 Neut # (Auto) 8.22 H Lymph # (Auto) 0.62 L [place] # (Auto) 0.78 H Eos # (Auto) 0.17 Baso # (Auto) 0.02 Immature Gran # (Auto) 0.02 Sodium 137 Potassium 3.5 D Chloride 100 Carbon Dioxide 31 Anion Gap 6.0 BUN 52 H Creatinine 1.97 H Est Cr Clr Drug Dosing 39.1 Est GFR ( Amer) 36.9 Est GFR (Non-Af Amer) 31.8 BUN/Creatinine Ratio 26.3 H Glucose 119 H POC Glucose 143 H Calcium 9.1 Magnesium 2.3 Total Bilirubin 0.7 AST 24 ALT 21 Alkaline Phosphatase 232 H Total Protein 6.9 Albumin 3.1 L Globulin 3.8 Albumin/Globulin Ratio 0.8 L 05/07/21 05/07/21 05/07/21 07:25 11:45 16:08 WBC RBC Hgb Hct MCV MCH MCHC RDW Std Deviation RDW Coeff of Jeff Plt Count MPV Immature Gran % (Auto) Neut % (Auto) Lymph % (Auto) [place] % (Auto) Eos % (Auto) Baso % (Auto) Neut # (Auto) Lymph # (Auto) [place] # (Auto) Eos # (Auto) Baso # (Auto) Immature Gran # (Auto) Sodium Potassium Chloride Carbon Dioxide Anion Gap BUN Creatinine Est Cr Clr Drug Dosing Est GFR ( Amer) Est GFR (Non-Af Amer) BUN/Creatinine Ratio Glucose POC Glucose 135 H 120 H 148 H Calcium Magnesium Total Bilirubin AST ALT Alkaline Phosphatase Total Protein Albumin Globulin Albumin/Globulin Ratio PG Care Time/CCT Total # of Minutes Spent Total Time Spent with Patient: Total time spent is greater than 50% in coordination of care (as documented) at patient's floor/unit and/or counseling patient: Coding Level of Care Code 62398 Subseq Hosp Care Lvl 3 Diagnoses Pleural effusion J90 History of coronary artery disease Z86.79 Paroxysmal atrial fibrillation I48.0 Type 2 diabetes mellitus E11.22; N18.32 Diabetes mellitus skilled nursing insulin use: without skilled nursing use Diabetes mellitus complication status: with kidney complications Diabetes mellitus complication detail: with chronic kidney disease Chronic kidney disease stage: stage 3 (moderate) Chronic kidney disease stage 3 subtype: stage 3b (GFR 30-44) Hyperlipidemia E78.5 Hyperlipidemia type: unspecified Hypertension I10 Hypertension type: essential hypertension Acute on chronic renal failure N17.9; N18.9 Venous ulcer of leg I83.009; L97.909 Hypokalemia E87.6 Acute on chronic combined systolic and diastolic CHF (congestive heart failure) I50.43 Hypotension I95.9 Weakness R53.1 DVT prophylaxis Z29.9 (1) Type 2 diabetes mellitus Diabetes mellitus bed bug exterminator insulin use: without skilled nursing use Diabetes mellitus complication status: with kidney complications Diabetes mellitus complication detail: with chronic kidney disease Chronic kidney disease stage: stage 3 (moderate) Chronic kidney disease stage 3 subtype: stage 3b (GFR 30-44) Qualified Code(s): E11.22 - Type 2 diabetes mellitus with diabetic chronic kidney disease; N18.32 - Chronic kidney disease, stage 3b (2) Hyperlipidemia Hyperlipidemia type: unspecified Qualified Code(s): E78.5 - Hyperlipidemia, unspecified (3) Hypertension Hypertension type: essential hypertension Qualified Code(s): I10 - Essential (primary) hypertension
[2021-05-07] MEDS: SACUBITRIL-VALSARTAN 49/51 MG TAB PO SCH (20:25)
[2021-05-07] MEDS: AMIODARONE 200 MG TAB PO SCH (20:26)
[2021-05-08 06:29] LABS: BUN Creatinine Ratio 26.6 (10-20); Calcium 9.3 mg/dl (8.5-10.1); Creatinine Clr Calc Pharmacy 39.1 ml/min; Est GFR (African American) 36.9 ml/min; Est GFR (Non-African American) 31.8 ml/min
[2021-05-08] MEDS: allopurinoL 100 MG TAB PO SCH (09:00)
[2021-05-08] MEDS: SERTRALINE HCL 50 MG TABLET PO SCH (09:00)
[2021-05-08] MEDS: APIXABAN 5 MG TABLET PO SCH ×2 (09:00→20:26)
[2021-05-08] MEDS: METOPROLOL SUCC 50MG EXT REL TAB PO SCH ×2 (09:00→20:27)
[2021-05-08] MEDS: CEROVITE ADV FORMULA TAB PO SCH (09:00)
[2021-05-08] MEDS: CLOPIDOGREL BISULFATE 75 MG TAB PO SCH (09:01)
[2021-05-08] MEDS: COLESTIPOL HCL 1 GM TAB PO SCH ×2 (09:01→21:37)
[2021-05-08] MEDS: SACUBITRIL-VALSARTAN 49/51 MG TAB PO SCH ×2 (09:01→20:26)
[2021-05-08] MEDS: INSULIN ASPART 100 UNITS/ML 3 ML PEN SC SCH ×4 (09:02→20:28)
[2021-05-08] MEDS: TRIAMCINOLONE ACET NASAL SPRAY 10.8ML BTL NAE SCH (09:02)
[2021-05-08] MEDS: POTASSIUM CHLORIDE CRTAB 20 MEQ TABCR PO SCH (09:02)
[2021-05-08] MEDS: OMEGA-3 (PURIFIED FISH OIL) 1 GM CAP PO SCH (09:14)
--- NOTE | 2021-05-08 11:46 | Hospitalist Progress Note ---
Date of Service May 08, 2021 Assessment & Plan (1) Acute on chronic combined systolic and diastolic CHF (congestive heart failure): Plan: clinically stable/improved. diuretics placed on hold due to rise in creatinine and drop in BPs last 48 hours. however, he continues with LOREDO, edema, and cxr today with pulm edema. will give bumex 2mg x 1 and reassess in am for additional diuretic. cont metoprolol at reduced dose of 50mg BID. cont Entresto at lower dose. BPs improved w/ above 2 changes. (2) Hypotension: Plan: suspect 2nd over-diuresis. resolved with change in beta ruby and entresto dosing. He is nearly 20 pounds down from weight at admission. see #1 above. (3) Pleural effusion: Plan: left stable sats in room air mild-moderate in size no change on cxr today cont to observe (4) History of coronary artery disease: Plan: had episode of CP lasting 2 min today despite such his troponins x 2 were negative today and EKG was unchanged [id number] he has a complex CAD history with stents x 3 in 08/[address] Peterson cont BB cont plavix unfortunately he is statin intolerant I spoke with Dr Torres - will have Dr Peterson re-eval him tomorrow for whether he needs additional ischemic evaluation (5) Paroxysmal atrial fibrillation: Plan: Continue Eliquis and amiodarone Continue metoprolol succinate at reduced dose of 50mg BID given his low BPs Remains in NSR on the monitor (6) Type 2 diabetes mellitus: Plan: Controlled w/ novolog sliding scale (7) Hyperlipidemia: Plan: LDL 48 off of any statin agent cont colestipol (8) Hypertension: Plan: controlled low BPs resolved (9) Acute on chronic renal failure: Plan: rise in Cr likely 2nd diuresis baseline Creatinine 1.5 to 1.6 stage 3 CKD still seems a bit volume overloaded - may need to accept higher creatinine to maintain euvolemia repeat BMP am bumex x 1 today (10) Venous ulcer of leg: Plan: Wound care consulted and recs appreciated (11) Hypokalemia: Plan: resolved (12) Weakness: Plan: deconditioning in the setting of severe systolic CHF and other medical problems cont PT/OT he walked in hallway today and was very fatigued; PT advising rehab (13) DVT prophylaxis: Plan: eliquis BID Plan: extensive 20 min update given to pt's nephew, Alen, today questions answered discussed plan of care Admission and Anticipated Discharge Date Admission Date: May 02, 2021 Subjective tele - sinus keyur, upper 50s; NSR 60s no AV block or a.fib patient continues to have LOREDO and LE edema states he worked with PT today and "things didn't go well" he had LOREDO as well as a 2-min long episode of substernal CP that self-resolved states the pain was somewhat similar to past episodes of chest pain he notes that he has had intermittent chest pain for several weeks, sometimes with simply bending over, sometimes swinging his legs over into the bed, and several episodes with exertion PT did state that he would benefit from rehab post-discharge Review of Systems Review of Systems: GEN: fatigue at baseline, appetite wnl CV: chest pain this am - see HPI Pulm: no cough GI: no abd pain or nausea Physical Exam Physical Exam: gen - obese, NAD, a/o x 3 neck - no JVD ENT - MMM heart - keyur, s1 s2, no murmur lungs - decreased BS left base; minimal rales b/l bases abd - soft NT ND BS+; no HSM ext - 2+ edema from feet up to the knees, pulses 2+ b/l - no change in edema skin - dressings intact b/l shins; stasis changes b/l shins Results & Data Results & Data ([facility]) Vital Signs (Past 12 Hours) Vital Signs Temp Pulse Pulse Resp BP BP Pulse Ox 05/08/21 11:15 36.6 C 70 16 103/69 96 05/08/21 11:10 97 05/08/21 10:18 59 L 05/08/21 07:32 36.3 C L 62 16 109/64 96 05/08/21 03:59 36.4 C L 61 18 109/65 94 05/08/21 00:00 60 05/07/21 23:59 36.5 C 61 18 104/62 93 Laboratory Results Laboratory Results - last 24 hr 05/08/21 05/08/21 05/08/21 05:29 07:18 11:29 Sodium 135 L Potassium 4.0 Chloride 99 Carbon Dioxide 32 Anion Gap 4.0 BUN 53 H Creatinine 1.97 H Est Cr Clr Drug Dosing 39.1 Est GFR ( Amer) 36.9 Est GFR (Non-Af Amer) 31.8 BUN/Creatinine Ratio 26.6 H Glucose 128 H POC Glucose 139 H 145 H Calcium 9.3 Troponin I 05/08/21 05/08/21 05/08/21 12:09 16:12 19:29 Sodium Potassium Chloride Carbon Dioxide Anion Gap BUN Creatinine Est Cr Clr Drug Dosing Est GFR ( Amer) Est GFR (Non-Af Amer) BUN/Creatinine Ratio Glucose POC Glucose 129 H Calcium Troponin I < 0.015 < 0.015 05/08/21 20:15 Sodium Potassium Chloride Carbon Dioxide Anion Gap BUN Creatinine Est Cr Clr Drug Dosing Est GFR ( Amer) Est GFR (Non-Af Amer) BUN/Creatinine Ratio Glucose POC Glucose 172 H Calcium Troponin I Diagnostic Findings Chest X-Ray 05/08/21 11:45 TWO VIEW CHEST CLINICAL HISTORY: Dyspnea on exertion. Pleural effusions. FINDINGS: AP and lateral chest radiographs are compared to study dated 05/05/2021 and correlated with chest CT dated 03/07/2020. The heart is enlarged noting atherosclerotic calcification of the thoracic aorta. There is pulmonary vascular congestion. There is a layering left pleural effusion with left basilar consolidation. No right pleural effusion is identified. There is right basilar atelectasis. There is no pneumothorax. The skeletal structures are osteopenic. The bony thorax appears intact. IMPRESSION: 1. Cardiomegaly with evidence of congestive failure. This has modestly worsened as compared to 05/05/2021. 2. Layering left pleural effusion with left basilar consolidation. This is similar to previous. ACT 112: Negative or not required by law. Electronically signed by: Nikolai Bacon M.D. 05/08/2021 3:56 PM EKG - NSR, low voltage, some mild flattening of ST segments but no T wave inversions PG Care Time/CCT Total # of Minutes Spent Total Time Spent with Patient: Total time spent is greater than 50% in coordination of care (as documented) at patient's floor/unit and/or counseling patient: Coding Level of Care Code 96049 Subseq Hosp Care Lvl 3 Diagnoses Acute on chronic combined systolic and diastolic CHF (congestive heart failure) I50.43 Hypotension I95.9 Pleural effusion J90 History of coronary artery disease Z86.79 Paroxysmal atrial fibrillation I48.0 Type 2 diabetes mellitus E11.22; N18.32 Chronic kidney disease stage: stage 3 (moderate) Chronic kidney disease stage 3 subtype: stage 3b (GFR 30-44) Diabetes mellitus complication detail: with chronic kidney disease Diabetes mellitus complication status: with kidney complications Diabetes mellitus buttermaker helper insulin use: without fpc use Hyperlipidemia E78.5 Hyperlipidemia type: unspecified Hypertension I10 Hypertension type: essential hypertension Acute on chronic renal failure N17.9; N18.9 Venous ulcer of leg I83.009; L97.909 Hypokalemia E87.6 Weakness R53.1 DVT prophylaxis Z29.9 (1) Type 2 diabetes mellitus Chronic kidney disease stage: stage 3 (moderate) Chronic kidney disease stage 3 subtype: stage 3b (GFR 30-44) Diabetes mellitus complication detail: with chronic kidney disease Diabetes mellitus complication status: with kidney complications Diabetes mellitus buttermaker helper insulin use: without fpc use Qualified Code(s): E11.22 - Type 2 diabetes mellitus with diabetic chronic kidney disease; N18.32 - Chronic kidney disease, stage 3b (2) Hyperlipidemia Hyperlipidemia type: unspecified Qualified Code(s): E78.5 - Hyperlipidemia, unspecified (3) Hypertension Hypertension type: essential hypertension Qualified Code(s): I10 - Essential (primary) hypertension
--- NOTE | 2021-05-08 15:57 | XRay Report ---
TWO VIEW CHEST CLINICAL HISTORY: Dyspnea on exertion. Pleural effusions. FINDINGS: AP and lateral chest radiographs are compared to study dated 05/05/2021 and correlated with c hest CT dated 03/07/2020. The heart is enlarged noting atherosclerotic calcification of the thoracic ao rta. There is pulmonary vascular congestion. There is a layering left pleural effusion with left basi lar consolidation. No right pleural effusion is identified. There is right basilar atelectasis. There is no pneumothorax. The skeletal structures are osteopenic. The bony thorax appears intact. IMPRESSION: 1. Cardiomegaly with evidence of congestive failure. This has modestly worsened as compared to 05/05/20 21. 2. Layering left pleural effusion with left basilar consolidation. This is similar to previous. ACT 112: Negative or not required by law. Electronically signed by: Nikolai Bacon M.D. 05/08/2021 3:56 PM
[2021-05-08] MEDS ORDERED: BUMETANIDE 1 MG TAB PO ONE (19:21)
[2021-05-08] MEDS: AMIODARONE 200 MG TAB PO SCH (20:27)
[2021-05-09 07:30] LABS: BUN Creatinine Ratio 27.1 (10-20); Calcium 9.3 mg/dl (8.5-10.1); Creatinine Clr Calc Pharmacy 46.9 ml/min; Est GFR (African American) 46.4 ml/min; Potassium 3.3 mmol/L (3.5-5.1)
[2021-05-09 07:38] LABS: Thyroid Stimulating Hormone 3.83 uIu/ml (0.300-4.500)
[2021-05-09] MEDS: INSULIN ASPART 100 UNITS/ML 3 ML PEN SC SCH ×4 (07:58→21:48)
[2021-05-09] MEDS: SACUBITRIL-VALSARTAN 49/51 MG TAB PO SCH ×2 (08:02→21:31)
[2021-05-09] MEDS: CEROVITE ADV FORMULA TAB PO SCH (08:02)
[2021-05-09] MEDS: CLOPIDOGREL BISULFATE 75 MG TAB PO SCH (08:02)
[2021-05-09] MEDS: APIXABAN 5 MG TABLET PO SCH ×2 (08:02→21:30)
[2021-05-09] MEDS: OMEGA-3 (PURIFIED FISH OIL) 1 GM CAP PO SCH (08:02)
[2021-05-09] MEDS: POTASSIUM CHLORIDE CRTAB 20 MEQ TABCR PO SCH ×4 (08:02→22:03)
[2021-05-09] MEDS: METOPROLOL SUCC 50MG EXT REL TAB PO SCH ×2 (08:02→21:31)
[2021-05-09] MEDS: SERTRALINE HCL 50 MG TABLET PO SCH (08:03)
[2021-05-09] MEDS: allopurinoL 100 MG TAB PO SCH (08:03)
[2021-05-09] MEDS: TRIAMCINOLONE ACET NASAL SPRAY 10.8ML BTL NAE SCH (08:04)
[2021-05-09] MEDS ORDERED: BUMETANIDE 2 MG in SYRINGE 0 ML IV ONE (08:15)
--- NOTE | 2021-05-09 08:19 | Electrocardiogram Report ---
Test Reason : Blood Pressure : / mmHG Vent. 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
[2021-05-09] MEDS: COLESTIPOL HCL 1 GM TAB PO SCH ×2 (10:36→23:03)
--- NOTE | 2021-05-09 14:16 | Cardiology Progress Note ---
Date of Service May 09, 2021 Assessment & Plan (1) Acute on chronic systolic heart failure: Plan: 2. Multivessel CAD 3. Paroxysmal atrial fibrillation 4. CKD 5. Bilateral venous ulcers, suspected CVI/edema Patient with persistent systemic venous congestion on exam. Had worsened pulmonary edema on most recent chest x-ray. Renal function stable. Unfortunately appears that he is going to require significant maintenance diuretics with his worsened RV failure. Goal this hospitalization is to get as close to euvolemic as possible. Do not feel recent chest pain is ischemic in nature. Did have residual mid LAD disease but distal LAD distribution likely infarcted and would forego additional ischemic evaluation at this time. Would resume IV Bumex 2 mg twice daily --Consider additional potassium supplement --Continue reduced dose Toprol XL, Entresto --Continue amiodarone --Continue Eliquis, clopidogrel --Will need close followup in our office and with CHF clinic upon discharge --Outpatient venous reflux study We will continue to follow. Admission and Anticipated Discharge Date Admission Date: May 02, 2021 Subjective Feeling well today. No shortness of breath at rest. Dyspnea with mild exertion. Reports intermittent chest discomfort since fall. Chest symptoms can occur with twisting, getting in bed. Did have some discomfort while walking with PT. Telemetry reviewedno events Review of Systems Review of Systems: All systems reviewed & are unremarkable except as noted in HPI & below Physical Exam Physical Exam: General: Comfortable, in good spirits HEENT: Sclerae anicteric Lungs: Decreased breath sounds at left base (improved), clear on the right Cardiac: Distant heart sounds, regular, bradycardic, 2/6 holosystolic murmur heard best at the apex Vascular: 2+ radial bilaterally Abdomen: Soft, nontender Extremities: Well perfused, significant lower extremity edema, legs wrapped Neuro: Nonfocal Psych: Alert orient x3, normal affect and mood Results & Data ([facility]) Vital Signs (Past 12 Hours) Vital Signs Temp Pulse Pulse Resp BP Pulse Ox 05/09/21 10:59 97.7 F 61 19 97/59 L 93 05/09/21 08:00 60 05/09/21 07:24 98.1 F 61 17 111/63 95 05/09/21 04:26 97.3 F L 63 16 103/67 93 05/09/21 02:08 66 PG Care Time/CCT Total # of Minutes Spent Total Time Spent with Patient: Total time spent is greater than 50% in coordination of care (as documented) at patient's floor/unit and/or counseling patient: Coding Level of Care Code 00614 Subseq Hosp Care Lvl 3 Diagnoses Acute on chronic systolic heart failure I50.23
[2021-05-09] MEDS: BUMETANIDE 2 MG in SYRINGE 0 ML IV SCH (16:50)
[2021-05-09] MEDS: NYSTATIN POWDER 15GM BTL EXT SCH ×2 (17:17→21:30)
--- NOTE | 2021-05-09 21:07 | Hospitalist Progress Note ---
Date of Service May 09, 2021 Assessment & Plan (1) Acute on chronic combined systolic and diastolic CHF (congestive heart failure): Plan: was aggressively diuresed earlier this stay with 15-20 pounds of weight loss. Creatinine adia- diuretics transiently held due to such as well as hypotension. He has continued with LOREDO, edema, and cxr findings c/w pulm edema. Thus, bumex resumed yesterday. I spoke with Dr Peterson and Jaye Kennedy from [facility] [place] - both advising ongoing diuresis. 2mg IV BID of bumex resumed today. cont metoprolol at reduced dose of 50mg BID. cont Entresto at lower dose. fluid restriction. daily weights. (2) Hypotension: Plan: suspect 2nd over-diuresis. resolved with change in beta ruby and entresto dosing. (3) Pleural effusion: Plan: left stable sats in room air mild-moderate in size no change on cxr cont to observe likely 2nd to systolic/diastolic CHF (4) History of coronary artery disease: Plan: had episode of CP during PT yesterday am despite such his troponins x 2 were negative and EKG was unchanged complex CAD history with stents x 3 in 08/[address] Peterson I spoke with Dr Peterson this am current symptoms may simply be from his decompensated CHF no plans at this time for ischemic eval (stress test, cath, etc) cont BB cont plavix unfortunately he is statin intolerant cont diuresis (5) Paroxysmal atrial fibrillation: Plan: Continue Eliquis and amiodarone Continue metoprolol succinate at reduced dose of 50mg BID Remains in NSR on the monitor (6) Type 2 diabetes mellitus: Plan: Controlled w/ novolog sliding scale (7) Hyperlipidemia: Plan: LDL 48 off of any statin agent cont colestipol (8) Hypertension: Plan: controlled low BPs resolved (9) Acute on chronic renal failure: Plan: recent rise in Cr likely 2nd diuresis peak creatinine about 2 baseline Creatinine 1.5 to 1.6 stage 3 CKD resumed diuresis last pm Cr this am 1.6 BMP in am (10) Venous ulcer of leg: Plan: Wound care consulted and recs appreciated (11) Hypokalemia: Plan: replete - repeat BMP in am check mag in am as well (12) Weakness: Plan: deconditioning in the setting of severe systolic CHF and other medical problems cont PT/OT needs rehab (13) DVT prophylaxis: Plan: eliquis BID Plan: nepheliecer Lowry updated extensively by phone yesterday Admission and Anticipated Discharge Date Admission Date: May 02, 2021 Subjective tele overnight NSR pt with same complaints as previous - LOREDO, chest discomfort (nonanginal) with moving in the bed feels he did a little better with his walking today with PT no new complaints Review of Systems Review of Systems: gen - fatigue; no anorexia GI - no abd pain - no voiding issues Pulm - no cough CV - some orthopnea; ongoing edema Physical Exam Physical Exam: gen - obese, NAD, a/o x 3 neck - JVD present ENT - MMM heart - keyur, s1 s2, no murmur lungs - decreased BS left base; scant rales b/l bases abd - soft NT ND BS+; no HSM ext - 2+ edema - no change, pulses 2+ b/l skin - dressings intact b/l shins; stasis changes b/l shins chest - no reproducible chest wall pain Results & Data Results & Data ([facility]) Vital Signs (Past 12 Hours) Vital Signs Temp Pulse Pulse Resp BP Pulse Ox 05/09/21 19:45 36.3 C L 71 16 118/76 90 05/09/21 15:25 60 05/09/21 15:08 36.4 C L 64 18 117/74 94 05/09/21 10:59 36.5 C 61 19 97/59 L 93 Laboratory Results Laboratory Results - last 24 hr 05/09/21 05/09/21 05/09/21 06:30 07:14 11:36 Sodium 136 Potassium 3.3 L D Chloride 101 Carbon Dioxide 30 Anion Gap 5.0 BUN 44 H Creatinine 1.63 H D Est Cr Clr Drug Dosing 46.9 Est GFR ( Amer) 46.4 Est GFR (Non-Af Amer) 40.0 BUN/Creatinine Ratio 27.1 H Glucose 127 H POC Glucose 139 H 117 H Calcium 9.3 TSH 3.830 05/09/21 05/09/21 16:13 20:22 Sodium Potassium Chloride Carbon Dioxide Anion Gap BUN Creatinine Est Cr Clr Drug Dosing Est GFR ( Amer) Est GFR (Non-Af Amer) BUN/Creatinine Ratio Glucose POC Glucose 131 H 127 H Calcium TSH PG Care Time/CCT Total # of Minutes Spent Total Time Spent with Patient: Total time spent is greater than 50% in coordination of care (as documented) at patient's floor/unit and/or counseling patient: Coding Level of Care Code 73865 Subseq Hosp Care Lvl 2 Diagnoses Acute on chronic combined systolic and diastolic CHF (congestive heart failure) I50.43 Hypotension I95.9 Pleural effusion J90 History of coronary artery disease Z86.79 Paroxysmal atrial fibrillation I48.0 Type 2 diabetes mellitus E11.22; N18.32 Chronic kidney disease stage: stage 3 (moderate) Chronic kidney disease stage 3 subtype: stage 3b (GFR 30-44) Diabetes mellitus complication detail: with chronic kidney disease Diabetes mellitus complication status: with kidney complications Diabetes mellitus termite helper insulin use: without termite helper use Hyperlipidemia E78.5 Hyperlipidemia type: unspecified Hypertension I10 Hypertension type: essential hypertension Acute on chronic renal failure N17.9; N18.9 Venous ulcer of leg I83.009; L97.909 Hypokalemia E87.6 Weakness R53.1 DVT prophylaxis Z29.9 (1) Type 2 diabetes mellitus Chronic kidney disease stage: stage 3 (moderate) Chronic kidney disease stage 3 subtype: stage 3b (GFR 30-44) Diabetes mellitus complication detail: with chronic kidney disease Diabetes mellitus complication status: with kidney complications Diabetes mellitus usp insulin use: without termite helper use Qualified Code(s): E11.22 - Type 2 diabetes mellitus with diabetic chronic kidney disease; N18.32 - Chronic kidney disease, stage 3b (2) Hyperlipidemia Hyperlipidemia type: unspecified Qualified Code(s): E78.5 - Hyperlipidemia, unspecified (3) Hypertension Hypertension type: essential hypertension Qualified Code(s): I10 - Essential (primary) hypertension
[2021-05-09] MEDS: AMIODARONE 200 MG TAB PO SCH (21:31)
[2021-05-10 08:53] LABS: BUN Creatinine Ratio 27.4 (10-20); Calcium 9.5 mg/dl (8.5-10.1); Creatinine Clr Calc Pharmacy 44.6 ml/min; Est GFR (African American) 44.1 ml/min; Est GFR (Non-African American) 38.1 ml/min; Magnesium 2.1 mg/dl (1.8-2.4)
[2021-05-10] MEDS: INSULIN ASPART 100 UNITS/ML 3 ML PEN SC SCH ×4 (09:04→21:06)
[2021-05-10] MEDS: CEROVITE ADV FORMULA TAB PO SCH (09:05)
[2021-05-10] MEDS: SACUBITRIL-VALSARTAN 49/51 MG TAB PO SCH ×2 (09:05→20:59)
[2021-05-10] MEDS: SERTRALINE HCL 50 MG TABLET PO SCH (09:05)
[2021-05-10] MEDS: METOPROLOL SUCC 50MG EXT REL TAB PO SCH ×2 (09:05→20:58)
[2021-05-10] MEDS: COLESTIPOL HCL 1 GM TAB PO SCH ×2 (09:05→20:59)
[2021-05-10] MEDS: APIXABAN 5 MG TABLET PO SCH ×2 (09:06→20:57)
[2021-05-10] MEDS: OMEGA-3 (PURIFIED FISH OIL) 1 GM CAP PO SCH (09:06)
[2021-05-10] MEDS: CLOPIDOGREL BISULFATE 75 MG TAB PO SCH (09:06)
[2021-05-10] MEDS: BUMETANIDE 2 MG in SYRINGE 0 ML IV SCH ×2 (09:06→17:56)
[2021-05-10] MEDS: NYSTATIN POWDER 15GM BTL EXT SCH ×3 (09:06→20:59)
[2021-05-10] MEDS: allopurinoL 100 MG TAB PO SCH (09:06)
[2021-05-10] MEDS: TRIAMCINOLONE ACET NASAL SPRAY 10.8ML BTL NAE SCH (09:07)
--- NOTE | 2021-05-10 12:28 | Cardiology Progress Note ---
Date of Service May 10, 2021 Assessment & Plan (1) Acute on chronic systolic heart failure: Plan: 2. Multivessel CAD 3. Paroxysmal atrial fibrillation 4. CKD 5. Bilateral venous ulcers, suspected CVI/edema Continues to diurese well. Still with residual systemic venous congestion Renal function stable. Continues to have positional chest pain which do not feel it is anginal in nature. Unfortunately appears that he is going to require significant maintenance diuretics with his worsened RV failure. Goal this hospitalization is to get as close to euvolemic as possible. Continue IV Bumex 2 mg twice daily --Continue reduced dose Toprol XL, Entresto --Continue amiodarone --Continue Eliquis, clopidogrel --Will need close followup in our office and with CHF clinic upon discharge --Outpatient venous reflux study We will continue to follow. Admission and Anticipated Discharge Date Admission Date: May 02, 2021 Subjective Still with chest discomfort with moving/turning or being turned in bed. Also reports mild discomfort bilaterally in his lower abdomen with lying back. Telemetry reviewedno new events. Review of Systems Review of Systems: All systems reviewed & are unremarkable except as noted in HPI & below Physical Exam Physical Exam: General: Comfortable, in good spirits HEENT: Sclerae anicteric Lungs: Decreased breath sounds at left base (improved from admission), clear on the right Cardiac: Distant heart sounds, regular, bradycardic, 2/6 holosystolic murmur heard best at the apex Vascular: 2+ radial bilaterally Abdomen: Soft, nontender Extremities: Well perfused, significant lower extremity edema, legs wrapped Neuro: Nonfocal Psych: Alert orient x3, normal affect and mood Results & Data ([facility]) Vital Signs (Past 12 Hours) Vital Signs Temp Pulse Pulse Resp BP Pulse Ox 05/10/21 11:53 97.5 F L 64 18 95/58 L 95 05/10/21 08:00 60 05/10/21 07:37 98.1 F 61 18 98/58 L 92 05/10/21 04:31 98.1 F 69 16 101/66 94 PG Care Time/CCT Total # of Minutes Spent Total Time Spent with Patient: Total time spent is greater than 50% in coordination of care (as documented) at patient's floor/unit and/or counseling patient: Coding Level of Care Code 00615 Subseq Hosp Care Lvl 3 Diagnoses Acute on chronic systolic heart failure I50.23
[2021-05-10] MEDS: DICLOFENAC SOD 1% GEL 100 GM TUBE EXT SCH ×2 (18:21→20:56)
[2021-05-10] MEDS: AMIODARONE 200 MG TAB PO SCH (20:58)
--- NOTE | 2021-05-10 23:01 | Hospitalist Progress Note ---
Date of Service May 10, 2021 Assessment & Plan (1) Acute on chronic combined systolic and diastolic CHF (congestive heart failure): Plan: was aggressively diuresed earlier this stay with 15-20 pounds of weight loss. Creatinine adia- diuretics transiently held due to such as well as hypotension. Diuresis resumed; now on bumex 2mg IV BID. cont metoprolol at reduced dose of 50mg BID (due to recent hypotension dose decreased). cont Entresto at lower dose. fluid restriction. daily weights. (2) Hypotension: Plan: suspect 2nd over-diuresis. resolved with change in beta ruby and entresto dosing. (3) Pleural effusion: Plan: left stable sats in room air mild-moderate in size on most recent cxr cont to observe 2nd to systolic/diastolic CHF (4) History of coronary artery disease: Plan: has had intermittent chest pain episodes over the last few weeks at home and here in hospital some exertional also with a chest discomfort - "sharp" - that he gets when he moves into the bed and "swings his legs up" this sounds musculoskeletal - will try voltaren gel to chest wall despite the above troponins have been negative and EKGs have been unchanged complex CAD history with stents x 3 in 08/[address] Peterson I spoke with Dr Peterson this week current symptoms may simply be from his decompensated CHF no plans at this time for ischemic eval (stress test, cath, etc) cont BB cont plavix unfortunately he is statin intolerant cont diuresis (5) Paroxysmal atrial fibrillation: Plan: Continue Eliquis and amiodarone Continue metoprolol succinate at reduced dose of 50mg BID Remains in NSR on the monitor (6) Type 2 diabetes mellitus: Plan: Controlled w/ novolog sliding scale (7) Hyperlipidemia: Plan: LDL 48 off of any statin agent cont colestipol (8) Hypertension: Plan: controlled without hypotension (9) Acute on chronic renal failure: Plan: recent rise in Cr likely 2nd diuresis peak creatinine about 2 baseline Creatinine 1.5 to 1.6 stage 3 CKD resumed diuresis and creatinine remaining stable BMP in am (10) Venous ulcer of leg: Plan: Wound care consulted and recs appreciated cont local wound care dressings elevate legs would benefit from compression once volume status is improved (11) Hypokalemia: Plan: resolved (12) Weakness: Plan: deconditioning in the setting of severe systolic CHF and other medical problems cont PT/OT may need rehab (13) DVT prophylaxis: Plan: eliquis BID Plan: nepheliecer Lowry updated extensively by phone this week Admission and Anticipated Discharge Date Admission Date: May 02, 2021 Subjective main complaint today is that of chest pain - lower sternal - which comes on when he "swings his legs into the bed when he lays down." does not get the pain w/ walking to bathroom. worked with PT today and did better than previous. breathing is slightly better than previous. tele overnight with NSR. Review of Systems Review of Systems: gen - no fevers, mild fatigue, eating well CV - see HPI GI - no abd pain, no nausea, moving bowels - voiding w/o difficulty Physical Exam Physical Exam: gen - obese, NAD, a/o x 3 neck - JVD present but improved ENT - MMM heart - keyur, s1 s2, no murmur lungs - decreased BS left base; no rales or wheeze abd - soft NT ND BS+; no HSM ext - 2+ edema - no change, pulses 2+ b/l skin - dressings intact b/l shins; stasis changes b/l shins chest - no reproducible chest wall pain despite his complaints Results & Data Results & Data ([facility]) Vital Signs (Past 12 Hours) Vital Signs Temp Pulse Resp BP BP Pulse Ox 05/10/21 19:44 36.4 C L 72 16 103/67 91 05/10/21 15:30 36.5 C 67 19 103/63 95 05/10/21 11:53 36.4 C L 64 18 95/58 L 95 Laboratory Results Laboratory Results - last 24 hr 05/10/21 05/10/21 05/10/21 07:26 07:52 11:35 Sodium 141 Potassium 4.0 D Chloride 105 Carbon Dioxide 30 Anion Gap 6.0 BUN 47 H Creatinine 1.70 H Est Cr Clr Drug Dosing 44.6 Est GFR ( Amer) 44.1 Est GFR (Non-Af Amer) 38.1 BUN/Creatinine Ratio 27.4 H Glucose 114 H POC Glucose 116 H 119 H Calcium 9.5 Magnesium 2.1 05/10/21 05/10/21 16:32 20:19 Sodium Potassium Chloride Carbon Dioxide Anion Gap BUN Creatinine Est Cr Clr Drug Dosing Est GFR ( Amer) Est GFR (Non-Af Amer) BUN/Creatinine Ratio Glucose POC Glucose 118 H 157 H Calcium Magnesium PG Care Time/CCT Total # of Minutes Spent Total Time Spent with Patient: Total time spent is greater than 50% in coordination of care (as documented) at patient's floor/unit and/or counseling patient: Coding Level of Care Code 62512 Subseq Hosp Care Lvl 2 Diagnoses Acute on chronic combined systolic and diastolic CHF (congestive heart failure) I50.43 Hypotension I95.9 Pleural effusion J90 History of coronary artery disease Z86.79 Paroxysmal atrial fibrillation I48.0 Type 2 diabetes mellitus E11.22; N18.32 Chronic kidney disease stage: stage 3 (moderate) Chronic kidney disease stage 3 subtype: stage 3b (GFR 30-44) Diabetes mellitus complication detail: with chronic kidney disease Diabetes mellitus complication status: with kidney complications Diabetes mellitus nursing home insulin use: without nursing home use Hyperlipidemia E78.5 Hyperlipidemia type: unspecified Hypertension I10 Hypertension type: essential hypertension Acute on chronic renal failure N17.9; N18.9 Venous ulcer of leg I83.009; L97.909 Hypokalemia E87.6 Weakness R53.1 DVT prophylaxis Z29.9 (1) Type 2 diabetes mellitus Chronic kidney disease stage: stage 3 (moderate) Chronic kidney disease stage 3 subtype: stage 3b (GFR 30-44) Diabetes mellitus complication detail: with chronic kidney disease Diabetes mellitus complication status: with kidney complications Diabetes mellitus nursing home insulin use: without terminal operations supervisor use Qualified Code(s): E11.22 - Type 2 diabetes mellitus with diabetic chronic kidney disease; N18.32 - Chronic kidney disease, stage 3b (2) Hyperlipidemia Hyperlipidemia type: unspecified Qualified Code(s): E78.5 - Hyperlipidemia, unspecified (3) Hypertension Hypertension type: essential hypertension Qualified Code(s): I10 - Essential (primary) hypertension
[2021-05-11 07:04] LABS: BUN Creatinine Ratio 26.6 (10-20); Calcium 9.6 mg/dl (8.5-10.1); Creatinine Clr Calc Pharmacy 41.3 ml/min; Est GFR (African American) 40.1 ml/min; Est GFR (Non-African American) 34.6 ml/min; Potassium 3.9 mmol/L (3.5-5.1)
[2021-05-11] MEDS: INSULIN ASPART 100 UNITS/ML 3 ML PEN SC SCH ×4 (08:41→21:47)
[2021-05-11] MEDS: BUMETANIDE 2 MG in SYRINGE 0 ML IV SCH ×2 (08:46→16:59)
[2021-05-11] MEDS: NYSTATIN POWDER 15GM BTL EXT SCH ×3 (08:46→21:44)
[2021-05-11] MEDS: METOPROLOL SUCC 50MG EXT REL TAB PO SCH ×2 (08:47→21:45)
[2021-05-11] MEDS: APIXABAN 5 MG TABLET PO SCH ×2 (08:47→21:45)
[2021-05-11] MEDS: COLESTIPOL HCL 1 GM TAB PO SCH ×2 (08:47→21:44)
[2021-05-11] MEDS: SACUBITRIL-VALSARTAN 49/51 MG TAB PO SCH ×2 (08:47→21:45)
[2021-05-11] MEDS: CEROVITE ADV FORMULA TAB PO SCH (08:48)
[2021-05-11] MEDS: OMEGA-3 (PURIFIED FISH OIL) 1 GM CAP PO SCH (08:48)
[2021-05-11] MEDS: DICLOFENAC SOD 1% GEL 100 GM TUBE EXT SCH ×4 (08:48→21:44)
[2021-05-11] MEDS: allopurinoL 100 MG TAB PO SCH (08:48)
[2021-05-11] MEDS: CLOPIDOGREL BISULFATE 75 MG TAB PO SCH (08:48)
[2021-05-11] MEDS: SERTRALINE HCL 50 MG TABLET PO SCH (08:48)
[2021-05-11] MEDS: TRIAMCINOLONE ACET NASAL SPRAY 10.8ML BTL NAE SCH (08:49)
--- NOTE | 2021-05-11 12:54 | Cardiology Progress Note ---
Date of Service May 11, 2021 Assessment & Plan (1) Acute on chronic systolic heart failure: Plan: 2. Multivessel CAD 3. Paroxysmal atrial fibrillation 4. CKD 5. Bilateral venous ulcers, suspected CVI/edema Diuresis has tapered off Congestion, pleural effusion improved on exam. Residual lower extremity edema feel in part secondary to CVI, lymphedema Overall feel he is probably close to his new dry weight and can transition to maintenance home Bumex. Resume Bumex 2 mg p.o. twice daily --Continue reduced dose Toprol XL, Entresto --Continue amiodarone --Continue Eliquis, clopidogrel --Will need close followup in our office and with CHF clinic upon discharge --Outpatient venous reflux study Okay for discharge from a cardiac standpoint when medical issues stable. Admission and Anticipated Discharge Date Admission Date: May 02, 2021 Subjective Walked with PT yesterday. No chest pain with walking. Still with dyspnea but improved compared to where he was two or 3 weeks prior to admission. Still with intermittent chest pain getting in and out of bed. Telemetry reviewedno events Review of Systems Review of Systems: All systems reviewed & are unremarkable except as noted in HPI & below Physical Exam Physical Exam: General: Comfortable, in good spirits HEENT: Sclerae anicteric Lungs: Lungs clear Cardiac: Distant heart sounds, regular, bradycardic, 2/6 holosystolic murmur heard best at the apex Vascular: 2+ radial bilaterally Abdomen: Soft, nontender Extremities: Well perfused, lower extremity edema, legs wrapped Neuro: Nonfocal Psych: Alert orient x3, normal affect and mood Results & Data ([facility]) Vital Signs (Past 12 Hours) Vital Signs Temp Pulse Pulse Resp BP Pulse Ox 05/11/21 11:46 97.5 F L 65 18 102/65 94 05/11/21 07:48 67 05/11/21 07:22 97.5 F L 67 20 96/54 L 92 05/11/21 04:19 97.9 F 60 18 120/75 90 PG Care Time/CCT Total # of Minutes Spent Total Time Spent with Patient: Total time spent is greater than 50% in coordination of care (as documented) at patient's floor/unit and/or counseling patient: Coding Level of Care Code 32582 Subseq Hosp Care Lvl 3 Diagnoses Acute on chronic systolic heart failure I50.23
--- NOTE | 2021-05-11 21:37 | Hospitalist Progress Note ---
Date of Service May 11, 2021 Assessment & Plan (1) Acute on chronic combined systolic and diastolic CHF (congestive heart failure): Plan: Compensated today. 20+ pounds of weight loss since admission. Spoke with Dr Peterson - d/c IV bumex , change to bumex 2mg PO BID tomorrow. cont metoprolol at reduced dose of 50mg BID (due to recent hypotension dose was decreased). cont Entresto at lower dose - also because of recent hypotension. fluid restriction. daily weights. BMP am. (2) Hypotension: Plan: suspect 2nd over-diuresis. resolved with change in beta ruby and entresto dosing. (3) Pleural effusion: Plan: left by way of exam his effusion seems better stable sats in room air 2nd to systolic/diastolic CHF no Rx needed (4) History of coronary artery disease: Plan: had had intermittent chest pain episodes over the last few weeks at home and here in hospital some exertional also with a chest discomfort - "sharp" - that he gets when he moves into the bed and "swings his legs up" despite sounding musculoskeletal voltaren gel did not help the discomfort l despite the above troponins were negative and EKGs were unchanged complex CAD history with stents x 3 in 08/[address] Peterson no plans at this time for ischemic eval (stress test, cath, etc) after speaking with Dr Peterson cont BB cont plavix unfortunately he is statin intolerant (5) Paroxysmal atrial fibrillation: Plan: Continue Eliquis and amiodarone Continue metoprolol succinate at reduced dose of 50mg BID Remains in NSR on the monitor (6) Type 2 diabetes mellitus: Plan: Controlled w/ novolog sliding scale (7) Hyperlipidemia: Plan: LDL 48 off of any statin agent cont colestipol (8) Hypertension: Plan: controlled without hypotension today (9) Acute on chronic renal failure: Plan: recent rise in Cr likely 2nd diuresis peak creatinine about 2 baseline Creatinine 1.5 to 1.6 stage 3 CKD creatinine remains stable BMP in am (10) Venous ulcer of leg: Plan: Wound care consulted and recs appreciated cont local wound care dressings elevate legs would benefit from compression once volume status is improved (11) Hypokalemia: Plan: resolved (12) Weakness: Plan: significant deconditioning in the setting of severe systolic CHF and other medical problems I agree with patient that it would be unsafe to return home as he cannot safely ascend the steps to get into his building cont PT/OT dispo - SNF for rehab (13) DVT prophylaxis: Plan: eliquis BID Plan: updated pt's nephew, Alen, extensively by phone today discussed disposition and plan of care Admission and Anticipated Discharge Date Admission Date: May 02, 2021 Subjective no issues overnight tele stable voltaren gel did not help the chest discomfort that he gets when he bends or gets into bed [id number] the pain is unchanged from prior LOREDO has improved no cough eating well he expresses ongoing concerns about being able to climb the steps that lead into his condo building, then the steps in his actual condo (he sleeps in a loft) Review of Systems Review of Systems: gen - no anorexia pulm - no dyspnea at rest CV - no orthopnea GI - no nausea/emesis/abd pain Physical Exam Physical Exam: gen - obese, NAD, a/o x 3 neck - no JVD today ENT - MMM heart - RRR, s1 s2, no murmur lungs - airation wnl; CTA b/l abd - soft NT ND BS+; no HSM ext - 2+ edema - no change, pulses 2+ b/l skin - dressings intact b/l shins; stasis changes b/l shins Results & Data Results & Data ([facility]) Vital Signs (Past 12 Hours) Vital Signs Temp Pulse Pulse Resp BP Pulse Ox 05/11/21 19:51 36.7 C 66 18 106/70 92 05/11/21 17:19 59 L 05/11/21 15:37 36.3 C L 62 18 105/62 94 05/11/21 11:46 36.4 C L 65 18 102/65 94 Laboratory Results Laboratory Results - last 24 hr 05/11/21 05/11/21 05/11/21 06:05 11:17 16:33 Sodium 138 Potassium 3.9 Chloride 103 Carbon Dioxide 30 Anion Gap 5.0 BUN 49 H Creatinine 1.84 H Est Cr Clr Drug Dosing 41.3 Est GFR ( Amer) 40.1 Est GFR (Non-Af Amer) 34.6 BUN/Creatinine Ratio 26.6 H Glucose 127 H POC Glucose 142 H 148 H Calcium 9.6 05/11/21 20:46 Sodium Potassium Chloride Carbon Dioxide Anion Gap BUN Creatinine Est Cr Clr Drug Dosing Est GFR ( Amer) Est GFR (Non-Af Amer) BUN/Creatinine Ratio Glucose POC Glucose 149 H Calcium PG Care Time/CCT Total # of Minutes Spent Total Time Spent with Patient: Total time spent is greater than 50% in coordination of care (as documented) at patient's floor/unit and/or counseling patient: Coding Level of Care Code 20042 Subseq Hosp Care Lvl 3 Diagnoses Acute on chronic combined systolic and diastolic CHF (congestive heart failure) I50.43 Hypotension I95.9 Pleural effusion J90 History of coronary artery disease Z86.79 Paroxysmal atrial fibrillation I48.0 Type 2 diabetes mellitus E11.22; N18.32 Chronic kidney disease stage: stage 3 (moderate) Chronic kidney disease stage 3 subtype: stage 3b (GFR 30-44) Diabetes mellitus complication detail: with chronic kidney disease Diabetes mellitus complication status: with kidney complications Diabetes mellitus jail insulin use: without diesel dinkey engineer use Hyperlipidemia E78.5 Hyperlipidemia type: unspecified Hypertension I10 Hypertension type: essential hypertension Acute on chronic renal failure N17.9; N18.9 Venous ulcer of leg I83.009; L97.909 Hypokalemia E87.6 Weakness R53.1 DVT prophylaxis Z29.9 (1) Type 2 diabetes mellitus Chronic kidney disease stage: stage 3 (moderate) Chronic kidney disease stage 3 subtype: stage 3b (GFR 30-44) Diabetes mellitus complication detail: with chronic kidney disease Diabetes mellitus complication status: with kidney complications Diabetes mellitus diesel dinkey engineer insulin use: without diesel dinkey engineer use Qualified Code(s): E11.22 - Type 2 diabetes mellitus with diabetic chronic kidney disease; N18.32 - Chronic kidney disease, stage 3b (2) Hyperlipidemia Hyperlipidemia type: unspecified Qualified Code(s): E78.5 - Hyperlipidemia, unspecified (3) Hypertension Hypertension type: essential hypertension Qualified Code(s): I10 - Essential (primary) hypertension
[2021-05-11] MEDS: AMIODARONE 200 MG TAB PO SCH (21:45)
[2021-05-12] MEDS: BUMETANIDE 1 MG TAB PO SCH ×2 (08:40→17:34)
[2021-05-12] MEDS: SACUBITRIL-VALSARTAN 49/51 MG TAB PO SCH ×2 (08:41→21:23)
[2021-05-12] MEDS: METOPROLOL SUCC 50MG EXT REL TAB PO SCH ×2 (08:41→21:23)
[2021-05-12] MEDS: APIXABAN 5 MG TABLET PO SCH ×2 (08:41→21:24)
[2021-05-12] MEDS: SERTRALINE HCL 50 MG TABLET PO SCH (08:41)
[2021-05-12] MEDS: OMEGA-3 (PURIFIED FISH OIL) 1 GM CAP PO SCH (08:42)
[2021-05-12] MEDS: CLOPIDOGREL BISULFATE 75 MG TAB PO SCH (08:42)
[2021-05-12] MEDS: COLESTIPOL HCL 1 GM TAB PO SCH ×2 (08:42→23:26)
[2021-05-12] MEDS: CEROVITE ADV FORMULA TAB PO SCH (08:42)
[2021-05-12] MEDS: allopurinoL 100 MG TAB PO SCH (08:42)
[2021-05-12] MEDS: DICLOFENAC SOD 1% GEL 100 GM TUBE EXT SCH ×4 (08:43→21:21)
[2021-05-12] MEDS: TRIAMCINOLONE ACET NASAL SPRAY 10.8ML BTL NAE SCH (08:44)
[2021-05-12] MEDS: INSULIN ASPART 100 UNITS/ML 3 ML PEN SC SCH ×4 (08:50→21:21)
[2021-05-12 08:59] LABS: BUN Creatinine Ratio 26.2 (10-20); Calcium 9.7 mg/dl (8.5-10.1); Creatinine Clr Calc Pharmacy 45.2 ml/min; Est GFR (African American) 45.1 ml/min; Est GFR (Non-African American) 38.9 ml/min
[2021-05-12] MEDS: NYSTATIN POWDER 15GM BTL EXT SCH ×3 (10:33→21:27)
--- NOTE | 2021-05-12 17:57 | Cardiology Progress Note ---
Date of Service May 12, 2021 Assessment & Plan (1) Acute on chronic systolic heart failure: Plan: 2. Multivessel CAD 3. Paroxysmal atrial fibrillation 4. CKD 5. Bilateral venous ulcers, suspected CVI/edema Net even yesterday, weight stable now on p.o. home maintenance Bumex Residual lower extremity edema feel in part secondary to CVI, lymphedema From a cardiac standpoint okay with discharge to SNF when available Continue maintenance Bumex 2 mg twice daily --Continue reduced dose Toprol XL, Entresto --Continue amiodarone --Continue Eliquis, clopidogrel --Outpatient venous reflux study Heart failure to follow while patient at SNF Admission and Anticipated Discharge Date Admission Date: May 02, 2021 Subjective No new issues overnight. Still reports difficulty and recurrent chest pain getting in and out of bed. Breathing at rest comfortable. Telemetry reviewedno events Physical Exam Physical Exam: General: Comfortable, in good spirits HEENT: Sclerae anicteric Lungs: Lungs clear Cardiac: Distant heart sounds, regular, bradycardic, 2/6 holosystolic murmur heard best at the apex Vascular: 2+ radial bilaterally Abdomen: Soft, nontender Extremities: Well perfused, lower extremity edema, legs wrapped Neuro: Nonfocal Psych: Alert orient x3, normal affect and mood Results & Data ([facility]) Vital Signs (Past 12 Hours) Vital Signs Temp Pulse Resp BP Pulse Ox 05/12/21 15:33 97.9 F 56 L 19 94/50 L 95 05/12/21 11:28 97.3 F L 59 L 22 92/57 L 96 05/12/21 07:48 98.1 F 58 L 20 99/61 L 97 PG Care Time/CCT Total # of Minutes Spent Total Time Spent with Patient: Total time spent is greater than 50% in coordination of care (as documented) at patient's floor/unit and/or counseling patient: Coding Level of Care Code 35108 Subseq Hosp Care Lvl 2 Diagnoses Acute on chronic systolic heart failure I50.23
[2021-05-12] MEDS: AMIODARONE 200 MG TAB PO SCH (21:24)
--- NOTE | 2021-05-12 22:12 | Hospitalist Progress Note ---
Date of Service May 12, 2021 Assessment & Plan (1) Acute on chronic combined systolic and diastolic CHF (congestive heart failure): Plan: Compensated. On stable regimen of cardiac meds and diuretics (bumex 2mg BID). 20+ pounds of weight loss since admission. Cont metoprolol at reduced dose of 50mg BID (due to recent hypotension dose was decreased). Cont Entresto at lower dose - also because of recent hypotension. Cont fluid restriction. daily weights. BMP am. (2) Hypotension: Plan: resolved. was 2nd over-diuresis. beta ruby and entresto doses were reduced earlier this stay in response to low BPs. (3) Pleural effusion: Plan: 2nd to systolic/diastolic CHF clinically resolved - BS are equal b/l (4) History of coronary artery disease: Plan: Had intermittent chest pain episodes over the last few weeks at home and here in hospital some exertional also with a chest discomfort - "sharp" - that he gets when he moves into the bed and "swings his legs up" despite sounding musculoskeletal voltaren gel did not help the discomfort also, despite the above symptoms - troponins were negative and EKGs were unchanged complex CAD history with stents x 3 in 08/[address] Peterson no plans at this time for ischemic eval (stress test, cath, etc) after speaking with Dr Nicholas gooden BB cont plavix statin intolerant (5) Paroxysmal atrial fibrillation: Plan: Continue Eliquis and amiodarone Continue metoprolol succinate at reduced dose of 50mg BID Remains in NSR on the monitor (6) Type 2 diabetes mellitus: Plan: Controlled (7) Hyperlipidemia: Plan: LDL 48 off of any statin agent cont colestipol (8) Hypertension: Plan: controlled no changes to meds today (9) Acute on chronic renal failure: Plan: recent rise in Cr likely 2nd diuresis peak creatinine about 2 Cr 1.67 today baseline Creatinine 1.5 to 1.6 BMP in am (10) Venous ulcer of leg: Plan: Wound care consulted and recs appreciated cont local wound care dressings elevate legs I examined the LLE - no cellulitis concurrently; will examine RLE tomorrow would benefit from compression once volume status is improved (11) Hypokalemia: Plan: resolved (12) Weakness: Plan: significant deconditioning in the setting of severe systolic CHF and other medical problems I agree with patient that it would be unsafe to return home as he cannot safely ascend the steps to get into his building cont PT/OT dispo - SNF for rehab (13) CKD (chronic kidney disease) stage 3, GFR 30-59 ml/min: (14) DVT prophylaxis: Plan: eliquis BID Plan: spoke with pt's insurance company today (peer to peer) -- SNF approved hopefully to [facility] tomorrow on Sat Admission and Anticipated Discharge Date Admission Date: May 02, 2021 Subjective patient without complaints today eating well breathing is improved I informed him that auth for SNF was approved and hopefully can d/c to [facility] this weekend he mentions the chest wall discomfort he gets with bending but otherwise feeling decent today continues with LE edema Review of Systems Review of Systems: gen - NAD, sitting in chair eating pulm - LOREDO remains CV - no orthopnea GI - no nausea/emesis/abd pain Physical Exam Physical Exam: gen - obese, NAD, a/o x 3 neck - no JVD ENT - MMM heart - RRR, s1 s2, no murmur lungs - CTA b/l abd - soft NT ND BS+; no HSM ext - 2+ edema; pulses 2+ b/l skin - dressings intact b/l shins; I removed the LLE dressings -- LLE with stasis changes, macerated skin multiple locations, no cellulitis; right leg dressings left intact Results & Data Results & Data ([facility]) Vital Signs (Past 12 Hours) Vital Signs Temp Pulse Resp BP Pulse Ox 05/12/21 20:05 36.7 C 66 18 107/67 95 05/12/21 15:33 36.6 C 56 L 19 94/50 L 95 05/12/21 11:28 36.3 C L 59 L 22 92/57 L 96 Laboratory Results Laboratory Results - last 24 hr 05/12/21 05/12/21 05/12/21 07:18 08:01 11:18 Sodium 140 Potassium 4.0 Chloride 106 Carbon Dioxide 28 Anion Gap 6.0 BUN 44 H Creatinine 1.67 H Est Cr Clr Drug Dosing 45.2 Est GFR ( Amer) 45.1 Est GFR (Non-Af Amer) 38.9 BUN/Creatinine Ratio 26.2 H Glucose 121 H POC Glucose 130 H 126 H Calcium 9.7 05/12/21 05/12/21 16:32 20:46 Sodium Potassium Chloride Carbon Dioxide Anion Gap BUN Creatinine Est Cr Clr Drug Dosing Est GFR ( Amer) Est GFR (Non-Af Amer) BUN/Creatinine Ratio Glucose POC Glucose 115 H 131 H Calcium PG Care Time/CCT Total # of Minutes Spent Total Time Spent with Patient: Total time spent is greater than 50% in coordination of care (as documented) at patient's floor/unit and/or counseling patient: Coding Level of Care Code 40908 Subseq Hosp Care Lvl 2 Diagnoses Acute on chronic combined systolic and diastolic CHF (congestive heart failure) I50.43 Hypotension I95.9 Pleural effusion J90 History of coronary artery disease Z86.79 Paroxysmal atrial fibrillation I48.0 Type 2 diabetes mellitus E11.22; N18.32 Chronic kidney disease stage: stage 3 (moderate) Chronic kidney disease stage 3 subtype: stage 3b (GFR 30-44) Diabetes mellitus complication detail: with chronic kidney disease Diabetes mellitus complication status: with kidney complications Diabetes mellitus ferry terminal agent insulin use: without snf use Hyperlipidemia E78.5 Hyperlipidemia type: unspecified Hypertension I10 Hypertension type: essential hypertension Acute on chronic renal failure N17.9; N18.9 Venous ulcer of leg I83.009; L97.909 Hypokalemia E87.6 Weakness R53.1 DVT prophylaxis Z29.9 CKD (chronic kidney disease) stage 3, GFR 30-59 ml/min N18.32 Chronic kidney disease stage 3 subtype: stage 3b (GFR 30-44) (1) Type 2 diabetes mellitus Chronic kidney disease stage: stage 3 (moderate) Chronic kidney disease stage 3 subtype: stage 3b (GFR 30-44) Diabetes mellitus complication detail: with chronic kidney disease Diabetes mellitus complication status: with kidney complications Diabetes mellitus ferry terminal agent insulin use: without ferry terminal agent use Qualified Code(s): E11.22 - Type 2 diabetes mellitus with diabetic chronic kidney disease; N18.32 - Chronic kidney disease, stage 3b (2) Hyperlipidemia Hyperlipidemia type: unspecified Qualified Code(s): E78.5 - Hyperlipidemia, unspecified (3) Hypertension Hypertension type: essential hypertension Qualified Code(s): I10 - Essential (primary) hypertension (4) CKD (chronic kidney disease) stage 3, GFR 30-59 ml/min Chronic kidney disease stage 3 subtype: stage 3b (GFR 30-44) Qualified Code(s): N18.32 - Chronic kidney disease, stage 3b
[2021-05-12] MEDS: ACETAMINOPHEN 325 MG TAB PO PRN (23:27)
[2021-05-13 07:40] LABS: BUN Creatinine Ratio 25.8 (10-20); Calcium 9.5 mg/dl (8.5-10.1); Creatinine Clr Calc Pharmacy 39.8 ml/min; Est GFR (African American) 38.8 ml/min; Est GFR (Non-African American) 33.5 ml/min; Magnesium 2.3 mg/dl (1.8-2.4); Potassium 4.4 mmol/L (3.5-5.1)
[2021-05-13] MEDS: INSULIN ASPART 100 UNITS/ML 3 ML PEN SC SCH ×2 (08:34→12:18)
[2021-05-13] MEDS: APIXABAN 5 MG TABLET PO SCH (08:37)
[2021-05-13] MEDS: SACUBITRIL-VALSARTAN 49/51 MG TAB PO SCH (08:37)
[2021-05-13] MEDS: BUMETANIDE 1 MG TAB PO SCH (08:38)
[2021-05-13] MEDS: allopurinoL 100 MG TAB PO SCH (08:39)
[2021-05-13] MEDS: OMEGA-3 (PURIFIED FISH OIL) 1 GM CAP PO SCH (08:39)
[2021-05-13] MEDS: SERTRALINE HCL 50 MG TABLET PO SCH (08:39)
[2021-05-13] MEDS: CLOPIDOGREL BISULFATE 75 MG TAB PO SCH (08:39)
[2021-05-13] MEDS: TRIAMCINOLONE ACET NASAL SPRAY 10.8ML BTL NAE SCH (08:40)
[2021-05-13] MEDS: CEROVITE ADV FORMULA TAB PO SCH (08:40)
[2021-05-13] MEDS: NYSTATIN POWDER 15GM BTL EXT SCH ×2 (08:40→13:49)
[2021-05-13] MEDS: DICLOFENAC SOD 1% GEL 100 GM TUBE EXT SCH ×2 (08:42→13:49)
[2021-05-13] MEDS: POLYETHYLENE (MIRALAX) 17 GM PACK PO PRN (08:55)
[2021-05-13] MEDS: METOPROLOL SUCC 50MG EXT REL TAB PO SCH (08:55)
[2021-05-13] MEDS: COLESTIPOL HCL 1 GM TAB PO SCH (12:19)
--- NOTE | 2021-05-13 13:48 | Discharge Summary ---
Date of Service date of admission - May 02, 2021 date of discharge - May 13, 2021 Admission HPI Per Admitting Provider This is a 76-year-old male with past medical history of ischemic cardiomyopathy with EF 30-35%, rhythm controlled atrial fibrillation, coronary artery disease that presents status post fall along with worsening edema and dyspnea. Patient is pleasant but somewhat limited historian. Patient initially started to notice a worsening edema in his lower extremities over the past few weeks to the point that are now massively edematous and weeping clear fluid. He finds that it is somewhat more difficult to ambulate with this. In addition, he has noticed worsening dyspnea on exertion with very little exercise tolerance. Patient was seen in the heart failure clinic on 04/12 and subsequently with his guard museum, Dr. Canchola on 05/01. At that time, was noted that his renal function was worsening and that he was more edematous despite being on large doses of twice daily Bumex. Patient was prescribed metolazone 5 mg daily, this was called to the pharmacy that the patient has not yet been able to obtain it. Earlier today, patient was at the [employer] here. He went to get into his car and tripped on the runner, falling down his right side. Patient was brought to the emergency room, evaluation shows the patient did not have any significant injury including fracture or head trauma. At my evaluation, the patient is ambulatory around the room. He does not appear to be short of breath at rest but has significant dyspnea with even a short walk from the bathroom. Patient is concerned that he can no longer care for himself in his current condition and will like more intensive therapy to deal with his fluid overload. He does admit to some of very minimal chest pain which is substernal, similar to a "pulled muscle "that he experienced in the past. He denies any fevers, chills, diarrhea, nausea, vomiting, or constipation. Principal Diagnosis 1. acute/chronic systolic/diastolic CHF 2. fall preceding this admission 3. chest wall pain likely musculoskeletal in etiology 4. severe deconditioning Discharge Exam Gen: NAD, pleasant Mouth: MMM Neck: no JVD with patient sitting upright at 90 degrees Heart: RRR, s1 s2, no murmur Lungs: CTA b/l, no rales/wheeze; good airation Abd: soft NT ND BS+ Ext: 2+ edema b/l Vasc: 2+ pulses b/l feet Skin: multiple venous stasis ulcers b/l shins - clean, serous drainage only, no cellulitis; background of venous stasis changes b/l shins Discharge Data Allergies Allergy/AdvReac Type Severity Reaction Status Date / Time spironolactone AdvReac Severe Hyperkalemia, Verified 05/18/21 14:21 bradycardia Joojiuw-Uyd-Nsn Reductase AdvReac Intermediate Myalgias Verified 05/18/21 14:21 Inhibitor Consultations [facility] Procedures Performed Echocardiogram: * EF 30-35%. * apical akinesis; akinetic mid-anteroseptum, septum, inferior segments. * hypokinetic mid-anterior LV. * RV moderately dilated with mild RV dysfunction. * moderate mitral regurgitation. * borderline pulmonary HTN; dilated IVC. * grade 2 diastolic dysfunction. * moderate left pleural effusion. Ordered Studies Chest X-Ray 05/02/21 09:04 XR chest 1V portable CLINICAL HISTORY: Chest Pain COMPARISON STUDY: Chest radiograph November 14, 2020. FINDINGS: There is no pneumothorax. A moderate left pleural effusion is present. There is left basilar opacity. There is pulmonary vascular congestion with suspected pulmonary edema. Cardiomegaly is noted. IMPRESSION: 1. Moderate left pleural effusion with left basilar opacity which likely reflects atelectasis. Radiographic follow-up is recommended to ensure resolution. 2. Mild pulmonary edema. 3. Cardiomegaly. ACT 112: Negative or not required by law. Electronically signed by: Choco Davidson M.D. 05/02/2021 10:[address] 05/02/21 09:[address] DOSE: 3304.51 mGy.cm HISTORY: Neck pain fall TECHNIQUE: Multiaxial CT images of the cervical spine were performed and reformatted in the sagittal and coronal plane without the use of contrast. A dose lowering technique was utilized adhering to the principles of ALARA. COMPARISON: None. FINDINGS: No fracture or subluxation within the cervical spine. The C3-T1 vertebral bodies and facets are fused. The prevertebral soft tissues and C1-C2 interval are intact. Partially visualized left pleural effusion. IMPRESSION: No fractures within the cervical spine. Partially visualized left pleural effusion. ACT 112: Negative or not required by law. Electronically signed by: Adebayo Whitehead M.D. 05/02/2021 9:[address] 05/02/21 09:10 CT OF THE HEAD WITHOUT CONTRAST CLINICAL HISTORY: pain fall COMPARISON STUDY: No previous studies for comparison. MRI brain February 01, 2011. TECHNIQUE: Helical axial images of the head were obtained without IV contrast. Automated exposure control was utilized for the study. A dose lowering technique was utilized adhering to the principles of ALARA. FINDINGS: This exam is mildly compromised by motion artifact. No acute intracranial hemorrhage, midline shift or mass effect is present. The ventricular system is unremarkable. The basal cisterns are patent. No extra- axial collections are present. There are no findings to suggest acute dural sinus thrombosis or acute territorial infarct. Visualized portions of the sinuses and mastoid air cells are clear. A small right scalp contusion is noted. There is no calvarial fracture. IMPRESSION: 1. No acute intracranial findings. Exam mildly compromised by motion artifact. 2. Small right scalp contusion. No calvarial fracture. ACT 112: Negative or not required by law. Electronically signed by: Choco Davidson M.D. 05/02/2021 9:30 AM Hip/Pelvis X-Ray 05/02/21 09:10 XR hip RT 2V w pelvis CLINICAL HISTORY: Right hip pain. Fall COMPARISON STUDY: Pelvis 10/12/2014. FINDINGS: No fracture or dislocation within the pelvis or hips. There is mild osteoarthritis within the bilateral hips, unchanged. The sacrum appears intact. Soft tissues are within normal limits. IMPRESSION: No fracture or dislocation within the pelvis or hips. ACT 112: Negative or not required by law. Electronically signed by: Adebayo Whitehead M.D. 05/02/2021 10:18 AM Venous Doppler Study 05/02/21 10:13 BILATERAL LOWER EXTREMITY VENOUS DOPPLER HISTORY: Lower extremity edema pain COMPARISON STUDY: None. FINDINGS: There is normal compressibility, flow, and augmentation within the bilateral lower extremity deep venous systems. IMPRESSION: No DVT within the right or left lower extremity. ACT 112: Negative or not required by law. Electronically signed by: Adebayo Whitehead M.D. 05/02/2021 11:54 AM Chest X-Ray 05/05/21 07:00 XR chest 2V PA/lateral HISTORY: Follow-up Pleural effusion COMPARISON: Chest 05/02/2021. FINDINGS: No pneumothorax. Moderate left pleural effusion and left basilar densities remain unchanged. No right pleural effusion. The heart remains mildly enlarged. There is mild central pulmonary vascular congestion without overt edema. IMPRESSION: No change in the moderate left pleural effusion. The pulmonary vasculature congestion has improved. ACT 112: Negative or not required by law. Electronically signed by: Adebayo Whitehead M.D. 05/05/2021 9:18 AM Chest X-Ray 05/08/21 11:45 TWO VIEW CHEST CLINICAL HISTORY: Dyspnea on exertion. Pleural effusions. FINDINGS: AP and lateral chest radiographs are compared to study dated 05/05/2021 and correlated with chest CT dated 03/07/2020. The heart is enlarged noting atherosclerotic calcification of the thoracic aorta. There is pulmonary vascular congestion. There is a layering left pleural effusion with left basilar consolidation. No right pleural effusion is identified. There is right basilar atelectasis. There is no pneumothorax. The skeletal structures are osteopenic. The bony thorax appears intact. IMPRESSION: 1. Cardiomegaly with evidence of congestive failure. This has modestly worsened as compared to 05/05/2021. 2. Layering left pleural effusion with left basilar consolidation. This is similar to previous. ACT 112: Negative or not required by law. Electronically signed by: Nikolai Bacon M.D. 05/08/2021 3:56 PM Ribs w/Chest X-Ray 05/13/21 13:33 XR ribs BI min 4V w CXR1V HISTORY: 76 years-old Male pain over right chest/sternum; eval Fx acute right- sided chest and rib pain status post fall COMPARISON: Chest radiographs 05/08/2021 TECHNIQUE: PA view the chest with 4 views of the bilateral ribs FINDINGS: Cardiac silhouette is enlarged. Trace right and small left pleural effusions with left lung base opacities redemonstrated. There is resolution of the previously described pulmonary edema. Degenerative changes of the shoulders and spine. No acute displaced rib fracture identified. IMPRESSION: 1. Cardiomegaly with resolution of the previously described pulmonary edema. 2. Decreased size of the left pleural effusion with persistent left lung base opacities favoring atelectasis. 3. No acute displaced rib fracture or pneumothorax. ACT 112: Negative or not required by law. The above report was generated using voice recognition software. It may contain grammatical, syntax or spelling errors. Electronically signed by: Kamron Ahmadi M.D. 05/13/2021 2:27 PM Hospital Course (1) Acute on chronic combined systolic and diastolic CHF (congestive heart failure): Patient had copious diuresis during the stay with near 30 pounds of weight loss by time of discharge. Discharge weight was 108.9 kg (239.5 pounds). He had residual LE edema at discharge, possibly combination of RV dysfunction and venous reflux/venous insufficiency. Due to relative hypotension his metoprolol succinate was reduced to 50mg BID during the stay. Entresto dosing was also lowered because of the hypotension to the 49/51mg combination pill. He will take BID. Diuretics at discharge - bumex 2mg BID. CHF instructions were given at discharge. Fluid / salt restriction advised. Echo during the stay with EF 30-35%. Other echo findings as above. He will follow-up with Ms Lee Ann Kennedy in the [facility] [place] [place] within a week of discharge. (2) Hypotension: Resolved. Multifactorial - medication-induced, diuresis, +/- his CHF itself. Beta ruby and Entresto doses were reduced in response to the hypotension. BPs were improved by discharge. (3) Pleural effusion: 2nd to systolic/diastolic CHF. Clinically and radiographically near-resolution by discharge s/p diuresis. (4) History of coronary artery disease: Had intermittent chest pain episodes at home over the few weeks prior to admission. He also had some episodes in the hospital some of which were mildly exertional. He seemed to have 2 discrete types of chest pain. First type of chest discomfort was "sharp" which he would get by moving into the bed and "swinging his legs up." Pain was lower sternal region. This pain started following his fall on the day of admission. Despite sounding musculoskeletal voltaren gel did not help the discomfort. 2nd pain was more mid-sternal and brought on by exertion. Despite the above symptoms troponins were negative and EKGs were unchanged. He has a known complex CAD history with stents x 3 in 08/[address] Yassine Peterson. In light of negative biomarkers and unchanged EKGs there were no plans for ischemic eval (stress test, cath, etc) during this stay. However, he will have close cardiology follow-up post-discharge. He will continue BB and plavix. He is statin intolerant. (5) Paroxysmal atrial fibrillation: Continue Eliquis and amiodarone. Continue metoprolol succinate at reduced dose of 50mg BID. Was in NSR on the monitor the entire stay. (6) Type 2 diabetes mellitus: Controlled during the visit. HbA1C 6.6%. Continue diet control upon discharge. (7) Hyperlipidemia: LDL 48 off of any statin agent cont colestipol (8) Hypertension: controlled during the stay; in fact, had relative hypotension as discussed above. see above re: med changes. (9) Acute on chronic renal failure: Had a rise in Creatinine during the early portion of the visit likely 2nd diuresis. Peak creatinine about 2. Creatinine at discharge about 1.8. Baseline Creatinine 1.5 to 1.6. Will need repeat BMP at time of cardiology follow-up post-discharge. (10) Venous ulcer of leg: Wound care was consulted and they provided recommendations for his venous stasis ulcers. cont local wound care dressings upon discharge. elevate legs. cont diuretics. Cardiology considering a venous reflux study post-discharge. would likely benefit from compression once volume status/LE edema is improved. (11) Hypokalemia: resolved with appropriate supplementation. (12) Weakness: significant deconditioning in the setting of severe systolic CHF and other medical problems. Patient was unsafe to return home as he could not safely ascend the steps to get into his condo building. seen by PT/OT both of which strongly advised rehab. transferring to local SNF for such. (13) CKD (chronic kidney disease) stage 3, GFR 30-59 ml/min: baseline Cr about 1.6 (14) Chest pain: during his prolonged stay c/o intermittent chest wall pains that were worsened by transferring from chair to bed, chair to standing, etc. this pain started following his pre-admission fall. rib series negative for rib fractures. suspect musculoskeletal etiology despite the negative x-rays. doubt VTE - patient takes chronic eliquis. this pain was not suggestive of ischemia given the fact it was brought on by transfers cont voltaren gel qid prn. also see "CAD" above. Total Time Total Time Spent Total Time Spent (In Minutes): 60 Discharge Plan Discharge Items Patient Disposition: Transfer Long Term Fac Reason For Visit: Fall, Congestive Heart Failure Discharge Diagnosis: 1. recent fall 2. acute on chronic congestive heart failure 3. lower leg wounds bilaterally 4. coronary artery disease 5. lower chest wall pain with bending, twisting, and getting into bed - musculoskeletal etiology is suspected; rib x-rays negative for fracture Activity: Resume your previous activity Non-emergency contact: Primary Care Provider and Mill And Coal Transport Operator Call non-emergency contact if: you have any medication questions, your symptoms worsen, your pain is not controlled, your pain is worsening, your pain is unusual for you and you have a fever Follow-up/Referrals: Sohan Lawler MD [Primary Care Provider] - Lee Ann Kennedy PA-C [Physician Oracle Erp Architect] - 05/18/21 2:00 pm (Congestive Heart Failure Program Appointment Information Early follow up is essential to managing your heart failure. An appointment has been scheduled for you with the [facility] Heart [facility] Program within 7 days of discharge. Anticipate this visit to be 30-60 minutes long. Please expect a four slide machine setter phone call from one of our nurses approximately 48 hours from discharge. They will also be placing an order for lab work to be completed 1-2 days prior to your heart failure follow up appointment. Please be sure to have this done so we can go over the results when you come in. Office Location The cardiology office building is located in front of the hospital at [address] Bring the following with you to your follow-up doctor appointments: Please bring your daily weight log any discharge paperwork all of your medication bottles with you to this visit. ) Diet: Carb Consistent or DM2 and Heart Healthy Fluids: 1800ml (7 cups) Addtl Attending Provider Instructions: Mr Peterson was admitted to the hospital after having had a fall. He was found to have decompensated congestive heart failure at time of admission. He diuresed 30 pounds of fluid since admission with discharge weight of 240 pounds. Recommendations - 1. DAILY AM WEIGHTS on standing scale. Notify provider if any weight gain of more than 2-3 pounds in 1-2 days. 2. BMP, magnesium levels in 3-4 days for stability. 3. Check BSGs twice daily -- morning and at bedtime. Notify provider if blood sugars are consistently greater than 150. Patient previously took metformin but this has been discontinued as his blood sugars have been nearly all <150 while at [facility]. Addtl Sales Representative Printing Provider Instructions: Call your Primary Care doctor or Mill And Coal Transport Operator if any of the following symptoms or problems start or get worse: * Shortness of breath or difficulty breathing * Wake up at night short of breath * Chest pain * Cough * Swelling of your hands, feet, or legs * More fatigued or tired with your normal activity * Palpitations - sudden fast heart beats WEIGHT * Weigh yourself every morning after using the bathroom. * Use the same scale. * Wear the same amount of clothing. * Write your weight down on a chart. * Call your Primary Care doctor or Mill And Coal Transport Operator if you gain more than 2-3 pounds in 1-2 days. MEDICATIONS * Use this discharge instruction sheet for medication instructions. * Take your medications at the time your doctor ordered. * Do not skip a dose of your medicines. * If you miss a dose of medicine, take it as soon as possible, but DO NOT DOUBLE A DOSE. * Read your medicine information when you get home. * Know all of the side effects of your medicine. If in doubt, ask your pharmacist * Call your Primary Care doctor's office if you have any side effects. * Be sure all of your doctors know what medicine and herbs you take (including cold, flu, and herbal medicine). Take the following with you to your follow-up doctor appointments: * Weight Chart * Medication List * List of questions Do not drink excessive alcohol, beer or wine. Pending Studies at Discharge: No Stand-Alone Forms: My [facility] [employer] Skilled Items Patient informed of condition?: Yes DNR: Yes Discharge Level of Care: Skilled Communicable Disease: No Discharge Prognosis: Stable Lines: None Urinary Catheter: No Medications and DC Order Prescriptions: New diclofenac sodium [Voltaren Arthritis Pain] 1 % Gel 4 g EXT QID PRN (Reason: chest wall pain) Qty: 1 RF: 0 nystatin [Nystop] 100,000 unit/gram Powder 1 applic EXT TID Qty: 30 RF: 1 sennosides [senna] 8.6 mg tablet 17.2 mg PO DAILY Qty: 30 RF: 0 polyethylene glycol 3350 [Miralax] 17 gram powder in packet 17 g PO DAILY Qty: 30 RF: 0 Continued PreserVision AREDS [id number],[id number] [id number]-uf-[id number] capsule 1 cap PO BID RF: 0 Centrum Silver Men 300-600-300 mcg tablet 1 tab PO QAM RF: 0 omega 8-oog-bdb-fish oil [Fish Oil] 1,000 mg (120 mg-180 mg) capsule 1 cap PO QAM RF: 0 Eliquis 5 mg tablet 5 mg PO BID Qty: 180 RF: 3 amiodarone [Pacerone] 200 mg tablet 200 mg PO HS RF: 0 clopidogrel [Plavix] 75 mg tablet 75 mg PO QAM RF: 0 nitroglycerin [Nitrostat] 0.4 mg tablet, sublingual 0.4 mg SL Q5M PRN (Reason: chest pain) RF: 0 albuterol sulfate [Ventolin HFA] 90 mcg/actuation HFA aerosol inhaler 2 puff inhalation Q6H PRN (Reason: shortness of breath or wheezing) RF: 0 colestipol [Colestid] 1 gram tablet 2 g PO BID RF: 0 bumetanide 2 mg tablet 2 mg PO BID Qty: 60 RF: 2 sacubitril-valsartan 49-51 mg tablet 1 tab PO BID Qty: 60 RF: 5 sertraline [Zoloft] 50 mg tablet 50 mg PO QAM RF: 0 Changed allopurinol 100 mg tablet 200 mg PO DAILY Qty: 60 RF: 5 metoprolol succinate 50 mg capsule,sprinkle,ER 24hr 50 mg PO BID Qty: 60 RF: 5 Discontinued metolazone 5 mg tablet 5 mg PO DAILY Qty: 7 RF: 0 metformin 500 mg Tablet 500 mg PO BIDM Qty: 60 RF: 0 ketoconazole 2 % cream 1 applic TOPICAL DAILY RF: 0 No Action potassium chloride 20 mEq tablet extended release 20 meq PO DAILY Qty: 30 RF: 2 tramadol 50 mg tablet 50 mg PO Q8H PRNRF: 0 Discharge Orders: Discharge Order (Routine); Ordered 05/13/21 Ordered By: Tony Moreno/Other Patient Handouts: A1C, Healthy Tips for Eating Out, High Blood Sugar (Hyperglycemia), Hypoglycemia (Low Blood Sugar), Managing Type 2 Diabetes, Heart Failure Making Changes to ... Admission Data Admit Date/Time: 05/02/21 14:04 Attending Provider: Tony Alaniz Admit Provider: Bi Marquis Primary Care Provider: Sohan Lawler Other Providers: Bi Marquis ; Stuart Bentley ; [facility] ; [place], [place] ; [facility] Other Interventions: Discharge Summary Assessment (RN) Last Done: 05/13/21 16:05 Coding Level of Care Code D/C DAY MANAGEMENT >30 MINS Diagnoses Acute on chronic combined systolic and diastolic CHF (congestive heart failure) I50.43 Hypotension I95.9 Pleural effusion J90 History of coronary artery disease Z86.79 Paroxysmal atrial fibrillation I48.0 Type 2 diabetes mellitus E11.22; N18.32 Chronic kidney disease stage: stage 3 (moderate) Chronic kidney disease stage 3 subtype: stage 3b (GFR 30-44) Diabetes mellitus complication detail: with chronic kidney disease Diabetes mellitus complication status: with kidney complications 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
--- NOTE | 2021-05-13 14:28 | XRay Report ---
XR ribs BI min 4V w CXR1V HISTORY: 76 years-old Male pain over right chest/sternum; eval Fx acute right-sided chest and rib pa in status post fall COMPARISON: Chest radiographs 05/08/2021 TECHNIQUE: PA view the chest with 4 views of the bilateral ribs FINDINGS: Cardiac silhouette is enlarged. Trace right and small left pleural effusions with left lung base opac ities redemonstrated. There is resolution of the previously described pulmonary edema. Degenerative c hanges of the shoulders and spine. No acute displaced rib fracture identified. IMPRESSION: 1. Cardiomegaly with resolution of the previously described pulmonary edema. 2. Decreased size of the left pleural effusion with persistent left lung base opacities favoring atel ectasis. 3. No acute displaced rib fracture or pneumothorax. ACT 112: Negative or not required by law. The above report was generated using voice recognition software. It may contain grammatical, syntax o r spelling errors. Electronically signed by: Kamron Ahmadi M.D. 05/13/2021 2:27 PM
== END 2021-05-13 16:05 | DRG 291 ==
LOC: ED 08:01 → SUATTDRO 14:04 → 2S 14:04

== ENCOUNTER 2021-07-11 12:23 | Inpatient (IN) ==
[2021-07-11 13:05] LABS: Basophils # (auto) 0.01 K/uL (0-0.2); Basophils % (auto) 0.1 %; Eosinophils # (auto) 0.08 K/uL (0-0.5); Eosinophils % (auto) 0.9 %; Hematocrit (blood only) 30.3 % (42-52); Hemoglobin 9.8 g/dL (14.0-18.0); INR 1.1 (0.9-1.1); Immature Granulocytes # (auto) 0.02 K/uL (0.00-0.02); Immature Granulocytes % (auto) 0.2 %; Lymphocytes % (auto) 5.5 %; Mean Corpuscular Hgb Conc 32.3 g/dL (32-36); Mean Corpuscular Volume 89.6 fL (80-100); Mean Platelet Volume 10.7 fL (7.4-10.4); Monocytes # (auto) 0.66 K/uL (0.11-0.59); Monocytes % (auto) 7.3 %; Neutrophils # (auto) 7.77 K/uL (1.4-6.5); Platelet Count 326 K/uL (130-400); Prothrombin Time 11.2 Seconds (9.0-12.0); RDW Coefficient of Variation 17.9 % (11.5-14.5); Red Blood Count 3.38 M/uL (4.7-6.1); White Blood Count 9.04 K/uL (4.8-10.8)
[2021-07-11 13:16] LABS: Appearance Urine Clear (Clear); Bilirubin Urine Negative (Negative); Blood Urine Negative (Negative); Color Urine Yellow; Glucose Urine UA Negative (Negative); Ketones Urine Negative (Negative); Leukocyte Esterase Urine Negative (Negative); Nitrite Urine Negative (Negative); Protein Urine Negative (Negative); Urobilinogen Urine Negative (Negative); pH Urine 5.5 (4.5-7.5)
[2021-07-11 13:24] LABS: Alanine Aminotransferase 23 U/L (12-78); Aspartate Aminotransferase 24 U/L (15-37); BUN Creatinine Ratio 25.1 (10-20); Bilirubin Direct 0.3 mg/dl (0-0.2); Blood Urea Nitrogen 93 mg/dl (7-18); Calcium 9.4 mg/dl (8.5-10.1); Carbon Dioxide 27 mmol/L (21-32); Chloride 101 mmol/L (98-107); Creatinine Clr Calc Pharmacy 21.3 ml/min; Est GFR (African American) 17.3 ml/min; Est GFR (Non-African American) 14.9 ml/min; Glucose 145 mg/dl (70-99); Lipase 602 U/L (73-393); Magnesium 2.5 mg/dl (1.8-2.4); Potassium 4.8 mmol/L (3.5-5.1); Sodium 135 mmol/L (136-145)
[2021-07-11 13:32] LABS: Albumin Globulin Ratio 0.7 (0.9-2); Alkaline Phosphatase 259 U/L (45-117); Bilirubin,Total 0.5 mg/dl (0.2-1); Globulin 4.5 gm/dl (2.5-4.0); NT Pro B Type Natriuretic Pept 4884 pg/ml (0-1800); Phosphorus 3.9 mg/dl (2.5-4.9); Total Protein 7.5 gm/dl (6.4-8.2); Troponin I < 0.015 ng/ml (0-0.045)
--- NOTE | 2021-07-11 13:57 | XRay Report ---
XR chest 1V portable CLINICAL HISTORY: Atypical chest pain TECHNIQUE: Single frontal radiograph of the chest was obtained. Comparison: Comparison is made to rib series on 07/22/2021 FINDINGS: No lines and tubes are seen. Cardiomegaly is noted. Prominence and cephalization of the vasculature i s seen. Moderate left pleural effusion is seen. IMPRESSION: 1. Moderate left pleural effusion. 2. Mild pulmonary edema. Left retrocardiac airspace opacity cannot be entirely excluded. 3. Cardiomegaly. ACT 112: Negative or not required by law. Electronically signed by: Justin Kumar M.D. 07/11/2021 1:56 PM
[2021-07-11] MEDS ORDERED: BUMETANIDE 4 MG in SYRINGE 0 ML IV ONE (14:52)
--- NOTE | 2021-07-11 16:53 | History & Physical Report ---
Date of Service July 11, 2021 Assessment & Plan (1) Hypervolemia due to congestive heart failure: Plan: Acute heart failure with reduced ejection fraction. Difficult fluid balance given mainly right sided heart failure on exam with CIRILO. BNP acutally decreased from prior and he has needed ICU stay due to overdiuresis previously in March 2020. Blood pressure is stable but low and does not appear to a good indicator of fluid status Given his weight is increased from prior would favor continued diuresis at the present time and monitoring his renal function closely although the majority of his fluid appears to be related to venous insufficiency. Bumex 4mg IV given in ER, will defer further dosing until Cr is known in the morning. Previously diuresed well on Bumex 2mg IV BID. Will consult cardiology and nephrology (2) Acute on chronic renal insufficiency: Plan: Stop Entresto. Fluid balance as above. Renal US to assess for obstructive cause Consult nephrology (3) Bilateral edema of lower extremity: Plan: Suspect a lot of this is venous insufficiency Elevated legs as much as possible while sitting. (4) Ischemic cardiomyopathy: Plan: Continue Metoprolol succinate XL Will hold on Entresto given renal failure as above (5) Gout: Plan: No current flare of this Continue allopurinol 300mg PO daily (6) Atrial fibrillation: Plan: Currently in sinus rhythm Continue amiodarone/metoprolol Continue Eliquis for anticoagulation (7) CAD S/P percutaneous coronary angioplasty: Plan: Continue Plavix, Eliquis, Metoprolol, not on statin due to Myalgias. Plan: VTE Prophyalxis - Eliquis Diet - Low Na, fluid restrict 1500ml Disposition - observation status to med/tele Admission and Anticipated Discharge Date Admission Date: July 11, 2021 History of Present Illness Chief Complaint: Fatigue, generalized weakness and leg swelling Primary Care Provider: Sohan Lawler MD Moisés Peterson is a 76 year old male who presents to the ER with generalized, fa tigue, weakness and leg swelling. He is well known to this service with repeated admissions for congestive heart failure. He reports usually he is improved on discharge and rehabilitation helps but then he gets progressively worse and ends back in hospital again. His fluid balance is maintained by the heart failure clinic and he reports being just 4lb over his dry weight at the current time. He legs are swollen and weeping however he reports they are always like this. He denies any current chest pain (although has chronic intermittent chest pain on movements), palpitations, orthopnea or PND. He reports getting slowly progressively worse since his prior discharge in May. In the ER His CXR show mild increased pulmonary edema from prior, BNP 4884 (increased prior after discharge 2163), Cr increased to 3.69 from prior baseline 1.84. He was referred to medicine for admission and ongoing management fo CHF and CIRILO. Allergies Allergy/AdvReac Type Severity Reaction Status Date / Time spironolactone AdvReac Severe Hyperkalemia, Verified 07/11/21 16:06 bradycardia Vjimxgv-DVV-TmU Reductase AdvReac Intermediate Myalgias Verified 07/11/21 16:06 Inhibitor [Bjnppuj-Zdo-Dyf Reductase Inhibitor] Home Medications Medication Instructions Recorded Confirmed Type cumpoalr-rha-qjqms acid 300 1 tab PO QAM 05/11/19 07/11/21 History mcg-lycopene 600 mcg-lutein 300 mcg tablet (Centrum Silver Men) vitamins A,C,B-vqxt-ycgjpx 14,320 1 cap PO BID 05/11/19 07/11/21 History unit-226 mg-200 unit capsule (PreserVision AREDS) omega 6-drf-llu-fish oil 1,000 mg 1 cap PO QAM 05/20/19 07/11/21 History (120 mg-180 mg) capsule (Fish Oil) amiodarone 200 mg tablet (Pacerone) 200 mg PO HS 10/06/20 07/11/21 History sertraline 50 mg tablet (Zoloft) 50 mg PO QAM 11/14/20 07/11/21 History apixaban 5 mg tablet (Eliquis) 5 mg PO BID #180 tab 03/28/21 07/11/21 Rx clopidogrel 75 mg tablet (Plavix) 75 mg PO QAM 05/02/21 07/11/21 History nitroglycerin 0.4 mg sublingual 0.4 mg SL Q5M PRN 05/02/21 07/11/21 History tablet (Nitrostat) metoprolol succinate 50 mg capsule 50 mg PO BID #60 ea 05/13/21 07/11/21 Rx sprinkle, ext. release 24 hr nystatin 100,000 unit/gram topical 1 applic EXT TID #30 g 05/13/21 07/11/21 Rx powder (Nystop) tramadol 50 mg tablet 50 mg PO Q8H PRN 05/18/21 07/11/21 History albuterol sulfate 90 mcg/actuation 2 puff INHALATION Q6H PRN #6.7 g 06/26/21 07/11/21 Rx aerosol inhaler (Ventolin HFA) bumetanide 2 mg tablet 4 mg PO BID #120 tab 06/26/21 07/11/21 Rx colestipol 1 gram tablet (Colestid) 2 g PO HS tab 07/05/21 07/11/21 History sacubitril 97 mg-valsartan 103 mg 1 tab PO BID 07/06/21 07/11/21 History tablet (Entresto) allopurinol 300 mg tablet 300 mg PO QAM 07/11/21 07/11/21 History Past Med/Surg History Medical History Arthritis back, knees Atrial fibrillation New onset a. fib 08/2020 in setting of NSTEMI (which resulted in placement of 3 stents) Bilateral edema of lower extremity Chronic anticoagulation Chronic systolic heart failure Coronary artery disease stent x1 (2006), stents x3 (08/2020) Diastolic CHF Newly diagnosed during 03/2020 admission, responded well to diuretics > discharged on diuretics and referred to HF clinic per cardiology records Fall from standing Gout of ankle Hx of myocardial infarction 2006, NSTEMI (08/2020 > 3 stents) Ischemic cardiomyopathy Low back pain Lyme disease hx of 2018 Major depressive disorder Obesity Pulmonary embolism 5+ years ago Surgical History History of prostate biopsy S/P coronary artery stent placement stent x1 (2006), stents x3 (08/2020) Family History Family/Other Prostate cancer Father Heart disease Mother Bone cancer Sister Colon cancer Social History Smoking Status: Never smoker Second Hand Exposure: No; Hx Alcohol Use: Yes Alcohol type: wine Hx Substance Use: No Preferred Language: Danish Communication Ability: Effective Foot Orthopedist Required: No Beliefs That Will Affect Care: None marital status: Single Current Living Situation: Alone current occupational status: retired Other Information That Helps Us Care for You: No Feels Safe at Home: Yes Safety Concerns: Feels Safe At This Time Diet Comment: Has special diet unsure what kind Assistive Devices: Cane and Glasses Physical Exam Constitutional: well developed; + not well nourished and no acute distress ENMT: Mouth: oral mucous membranes not dry Neck: trachea midline, no thyromegaly Respiratory: + respiratory distress and + uses accessory muscles; + not able to speak in complete sentence Auscultation: + breath sounds absent (Left base) and + diminished lung sounds; no crackles and no wheezes Cardiovascular: Rate/Rhythm: regular rate and regular rhythm Heart Sounds: + murmur (Apical systolic) Vessels: no JVD Extremities: normal capillary refill, + calf tenderness (b/l) and + pedal edema (2+ to knees b/l equal) Gastrointestinal (Abdomen): Inspection/Auscultation: + abdomen distended and normal bowel sounds Percussion/Palpation: abdomen soft; abdomen nontender, no guarding and abdomen not rigid Musculoskeletal: no cyanosis or clubbing, extremities motor strength 5/5 Skin: venous stasis changes of lower extremities with open weaping wounds Neurologic: moves all extremities and awake; not confused Psychiatric: A+Ox3, euthymic affect Results & Data Results & Data ([facility]) Vital Signs (Past 12 Hours) Vital Signs Temp Pulse Pulse Resp BP BP Pulse Ox 07/11/21 15:05 80 20 105/55 L 98 07/11/21 12:42 36.5 C 97 H 16 92/55 L 93 Laboratory Results Abnormal lab results 07/11/21 07/11/21 07/11/21 Range/Units 12:40 12:40 19:49 RBC 3.38 L (4.7-6.1) M/uL Hgb 9.8 L (14.0-18.0) g/dL Hct 30.3 L (42-52) % RDW Std Deviation 58.0 H (36.4-46.3) fL RDW Coeff of Jeff 17.9 H (11.5-14.5) % MPV 10.7 H (7.4-10.4) fL Neut # (Auto) 7.77 H (1.4-6.5) K/uL Lymph # (Auto) 0.50 L (1.2-3.4) K/uL [place] # (Auto) 0.66 H (0.11-0.59) K/uL Sodium 135 L (136-145) mmol/L BUN 93 H (7-18) mg/dl Creatinine 3.69 H (0.6-1.4) mg/dl BUN/Creatinine Ratio 25.1 H (10-20) Glucose 145 H (70-99) mg/dl POC Glucose 114 H (70-99) mg/dl Magnesium 2.5 H (1.8-2.4) mg/dl Direct Bilirubin 0.3 H (0-0.2) mg/dl Alkaline Phosphatase 259 H (45-117) U/L NT-Pro-B Natriuret Pep 4884 H (0-1800) pg/ml Albumin 3.0 L (3.4-5.0) gm/dl Globulin 4.5 H (2.5-4.0) gm/dl Albumin/Globulin Ratio 0.7 L (0.9-2) Lipase 602 H (73-393) U/L Diagnostic Findings XR chest 1V portable CLINICAL HISTORY: Atypical chest pain TECHNIQUE: Single frontal radiograph of the chest was obtained. Comparison: Comparison is made to rib series on 07/22/2021 FINDINGS: No lines and tubes are seen. Cardiomegaly is noted. Prominence and cephalization of the vasculature is seen. Moderate left pleural effusion is seen. IMPRESSION: 1. Moderate left pleural effusion. 2. Mild pulmonary edema. Left retrocardiac airspace opacity cannot be entirely excluded. 3. Cardiomegaly. Medications Administered ER Medications Given: Bumex 4mg IV ECG Indication: SOB/dyspnea Rate (beats per minute): 61 Rhythm: normal sinus Findings: + left axis deviation Comparison ECG Date: from (May 08, 2021) Change: no significant change Code Status & VTE Plan Code Status DNT/DNI as discussed with the patient VTE Prophylaxis Plan VTE Prophylaxis will be ordered: Yes PG Care Time/CCT Total # of Minutes Spent Total Time Spent with Patient: Total time spent is greater than 50% in coordination of care (as documented) at patient's floor/unit and/or counseling patient: Coding Level of Care Code INT OBSERVATION CARE 70M LVL 3 Diagnoses Hypervolemia due to congestive heart failure E87.70; I50.9 Bilateral edema of lower extremity R60.0 Ischemic cardiomyopathy I25.5 Gout M10.9 Acute on chronic renal insufficiency N28.9; N18.9 Atrial fibrillation I48.19 Atrial fibrillation type: persistent (not longstanding) CAD S/P percutaneous coronary angioplasty I25.10; Z98.61 (1) Atrial fibrillation Atrial fibrillation type: persistent (not longstanding) Qualified Code(s): I48.19 - Other persistent atrial fibrillation
--- NOTE | 2021-07-11 17:03 | Emergency Department Note ---
Impression & Plan Hypervolemia due to congestive heart failure, Bilateral edema of lower extremity, Weakness generalized, Acute on chronic renal insufficiency ED Provider Note NAME: LATANYA ASHLEY AGE: 76 SEX: M ARRIVES VIA: Ambulance INFORMANT: Patient, ED PROVIDER(S): Daryl Johnson MD CHIEF COMPLAINT: Weakness, edema. PLAN: Disposition: Admit MEDICAL DECISION MAKING: The patient is a pleasant 76-year-old gentleman with a past medical history of systolic heart failure, ischemic cardiomyopathy, who presents to the emergency department for progressive generalized weakness and dyspnea over the past several months where he reports over the past week he has gotten weaker and barely able to function at home where he lives by himself. He reports he has been so weak he was unable to go to scheduled wound clinic appointment where he gets his lower extremity edema managed. He also reports he has a home nurse who helps with his dressing changes but they are not there every day and he does his best to dress his legs on his own. He denies any fevers, chills, cough, congestion, nausea, vomiting, diarrhea or urinary symptoms. He reports his fluid retention has progressively worsened. On arrival patient is chronically ill-appearing but no acute distress, afebrile with stable vital signs. He appears overtly hypervolemic with 4+ bilateral lower extremity pitting edema with serous weeping. Mild erythema but without warmth or tenderness. EKG without overt acute ischemia. Chest x-ray demonstrates mild pulmonary edema. WBC and platelets within normal limits. H/H 9.8/30.3 decreased from prior values though it may reflect a component of hemodilution given the patient's hypervolemia. Chemistry without metabolic acidosis. Creatinine 3.69 increased from recent baseline of 1.8-2.3. Troponin negative/undetectable. BNP 4800 which is mid range within the patient's prior values. TSHwithin normal limits. UA without convincing evidence of infection. COVID-19 PCR was negative. The patient's progressive worsening generalized weakness with his report of persistent fluid retention to the point where he feels he is unable to function now with also acute on chronic renal insufficiency reasonable to admit the patient for further medical optimization and likely placement into rehab. Patient is in agreement with this plan. Case was discussed with Dr. Hammond, [facility] hospitalist, who will evaluate the patient for admission. Triage Nursing notes reviewed and agree them. Prior medical records reviewed Vital Signs: reviewed and remarkable for no significant abnormalities Differential diagnosis: Reactive airway disease, pneumonia, pneumothorax, COPD, CHF, infections, cardiac ischemia, pulmonary embolism, musculoskeletal, gastrointestinal, as well as other pathologies. ER treatment provided: See below. Diagnostics interpreted by me: ECG: Sinus rhythm with first-degree AV block, 61 bpm, no ectopy, no overt ST elevation or depression, QTC 455, QRS 108. Cardiac Monitoring: An order for continuous cardiac monitoring was placed and demonstrated sinus rhythm, 61 bpm, no ectopy. Laboratory studies: See below Imaging studies: See below Consultation(s): Case was discussed with Dr. Hammond, [facility] hospitalist, who will evaluate the patient for admission. HPI: The patient is a pleasant 76-year-old gentleman with a past medical history of systolic heart failure, ischemic cardiomyopathy, who presents to the emergency department for progressive generalized weakness and dyspnea over the past several months where he reports over the past week he has gotten weaker and barely able to function at home where he lives by himself. He reports he has been so weak he was unable to go to scheduled wound clinic appointment where he gets his lower extremity edema managed. He also reports he has a home nurse who helps with his dressing changes but they are not there every day and he does his best to dress his legs on his own. He denies any fevers, chills, cough, congestion, nausea, vomiting, diarrhea or urinary symptoms. He reports his fluid retention has progressively worsened. ROS: See above HPI for pertinent positives & negatives. A total of 10 systems reviewed and were otherwise negative. PAST MEDICAL HISTORY:See Below PAST SURGICAL HISTORY:See Below FAMILY HISTORY:See Below SOCIAL HISTORY:See Below HOME MEDICATIONS:See Below ALLERGIES:See Below VITALS:See Below PHYSICAL EXAMINATION: GENERAL: Awake, alert, chronically ill-appearing, in no distress, BMI 38.6 HENT: Normocephalic, atraumatic. Oropharynx unremarkable. EYES: Normal conjunctiva. Sclera non-icteric. NECK: Supple. No nuchal rigidity. FROM. No JVD. RESPIRATORY: Clear to auscultation. CARDIAC: Regular rate, normal rhythm. Extremities warm and well perfused. Pulses equal. ABDOMEN: Soft, non-distended. No tenderness to palpation. No rebound or guarding. No masses. RECTAL: Deferred. MUSCULOSKELETAL: Chest examination reveals no tenderness. The back is symme trical on inspection without obvious abnormality. There is no CVA tenderness to palpation. No joint edema. LOWER EXTREMITIES: Calves are equal size bilaterally and non-tender. No edema. No discoloration. 4+ bilateral lower extremity pitting edema with serous weeping. Mild scant erythema without warmth or tenderness. NEURO: Normal sensorium. No sensory or motor deficits noted. SKIN: No rash or jaundice noted. Daryl Johnson MD Past Med/Surg History Medical History Arthritis back, knees Atrial fibrillation New onset a. fib 08/2020 in setting of NSTEMI (which resulted in placement of 3 stents) Bilateral edema of lower extremity Chronic anticoagulation Chronic systolic heart failure Coronary artery disease stent x1 (2006), stents x3 (08/2020) Diastolic CHF Newly diagnosed during 03/2020 admission, responded well to diuretics > discharged on diuretics and referred to HF clinic per cardiology records Fall from standing Gout of ankle Hx of myocardial infarction 2006, NSTEMI (08/2020 > 3 stents) Ischemic cardiomyopathy Low back pain Lyme disease hx of 2018 Major depressive disorder Obesity Pulmonary embolism 5+ years ago Surgical History History of prostate biopsy S/P coronary artery stent placement stent x1 (2006), stents x3 (08/2020) Family History Family/Other Prostate cancer Father Heart disease Mother Bone cancer Sister Colon cancer Social History Smoking Status: Never smoker Second Hand Exposure: No; Hx Alcohol Use: Yes Alcohol type: wine Hx Substance Use: No Preferred Language: Maltese Communication Ability: Effective Flyer Maker Required: No Beliefs That Will Affect Care: None marital status: Single Current Living Situation: Alone current occupational status: retired Other Information That Helps Us Care for You: No Feels Safe at Home: Yes Safety Concerns: Feels Safe At This Time Diet Comment: Has special diet unsure what kind Assistive Devices: Glasses Allergies Allergies Allergy/AdvReac Type Severity Reaction Status Date / Time spironolactone AdvReac Severe Hyperkalemia, Verified 07/11/21 16:06 bradycardia Ismsdzi-SPQ-YkR Reductase AdvReac Intermediate Myalgias Verified 07/11/21 16:06 Inhibitor [Dvtnyir-Esv-Bom Reductase Inhibitor] Home Meds Home Medications Medication Instructions Recorded Confirmed drwzktcu-bkc-uwpab acid 300 1 tab PO QAM 05/11/19 07/11/21 mcg-lycopene 600 mcg-lutein 300 mcg tablet (Centrum Silver Men) vitamins A,C,E-squm-ohdurd 14,320 1 cap PO BID 05/11/19 07/11/21 unit-226 mg-200 unit capsule (PreserVision AREDS) omega 5-qic-fuy-fish oil 1,000 mg 1 cap PO QAM 05/20/19 07/11/21 (120 mg-180 mg) capsule (Fish Oil) amiodarone 200 mg tablet (Pacerone) 200 mg PO HS 10/06/20 07/11/21 sertraline 50 mg tablet (Zoloft) 50 mg PO QAM 11/14/20 07/11/21 clopidogrel 75 mg tablet (Plavix) 75 mg PO QAM 05/02/21 07/11/21 nitroglycerin 0.4 mg sublingual 0.4 mg SL Q5M PRN 05/02/21 07/11/21 tablet (Nitrostat) tramadol 50 mg tablet 50 mg PO Q8H PRN 05/18/21 07/11/21 colestipol 1 gram tablet (Colestid) 2 g PO HS tab 07/05/21 07/11/21 sacubitril 97 mg-valsartan 103 mg 1 tab PO BID 07/06/21 07/11/21 tablet (Entresto) allopurinol 300 mg tablet 300 mg PO QAM 07/11/21 07/11/21 Previous Rx's Medication Instructions Recorded apixaban 5 mg tablet (Eliquis) 5 mg PO BID #180 tab 03/28/21 metoprolol succinate 50 mg capsule 50 mg PO BID #60 ea 05/13/21 sprinkle, ext. release 24 hr nystatin 100,000 unit/gram topical 1 applic EXT TID #30 g 05/13/21 powder (Nystop) albuterol sulfate 90 mcg/actuation 2 puff INHALATION Q6H PRN #6.7 g 06/26/21 aerosol inhaler (Ventolin HFA) bumetanide 2 mg tablet 4 mg PO BID #120 tab 06/26/21 Results & Data (ED) Vital Signs Vital Signs - 24 hr 07/11/21 12:42 07/11/21 15:05 Temperature 36.5 C Temperature Source Oral Pulse Rate 97 H Pulse Rate [Left Finger] 80 Pulse Strength Normal Respiratory Rate 16 20 Respiratory Effort / Characteristics Non-Labored Respiratory Depth Normal Blood Pressure 92/55 L Blood Pressure [Left Arm] 105/55 L Blood Pressure Mean 67 Blood Pressure Mean [Left Arm] 71 Blood Pressure Position Lying Blood Pressure Position [Left Arm] Sitting Pulse Oximetry 93 98 Oxygen Delivery Method Room Air Sepsis Recent Fever Within 48 Hours No Sepsis New/Unexplained Change in Mental Status N/A Sepsis Action Taken by Nursing No Action Required Laboratory Data Attestation: I reviewed the patient's lab results. Result diagrams: 07/11/21 12:40 07/11/21 12:40 Lab Results 07/11/21 07/11/21 07/11/21 Range/Units 12:40 12:40 12:40 WBC 9.04 (4.8-10.8) K/uL RBC 3.38 L (4.7-6.1) M/uL Hgb 9.8 L (14.0-18.0) g/dL Hct 30.3 L (42-52) % MCV 89.6 (80-100) fL MCH 29.0 (25-34) pg MCHC 32.3 (32-36) g/dL RDW Std Deviation 58.0 H (36.4-46.3) fL RDW Coeff of Jeff 17.9 H (11.5-14.5) % Plt Count 326 (130-400) K/uL MPV 10.7 H (7.4-10.4) fL Immature Gran % (Auto) 0.2 % Neut % (Auto) 86.0 % Lymph % (Auto) 5.5 % Nance % (Auto) 7.3 % Eos % (Auto) 0.9 % Baso % (Auto) 0.1 % Neut # (Auto) 7.77 H (1.4-6.5) K/uL Lymph # (Auto) 0.50 L (1.2-3.4) K/uL Nance # (Auto) 0.66 H (0.11-0.59) K/uL Eos # (Auto) 0.08 (0-0.5) K/uL Baso # (Auto) 0.01 (0-0.2) K/uL Immature Gran # (Auto) 0.02 (0.00-0.02) K/uL PT 11.2 (9.0-12.0) Seconds INR 1.1 (0.9-1.1) Sodium 135 L (136-145) mmol/L Potassium 4.8 (3.5-5.1) mmol/L Chloride 101 (98-107) mmol/L Carbon Dioxide 27 (21-32) mmol/L Anion Gap 7.0 (3-11) BUN 93 H (7-18) mg/dl Creatinine 3.69 H (0.6-1.4) mg/dl Est Cr Clr Drug Dosing 21.3 ml/min Est GFR ( Amer) 17.3 ml/min Est GFR (Non-Af Amer) 14.9 ml/min BUN/Creatinine Ratio 25.1 H (10-20) Glucose 145 H (70-99) mg/dl Calcium 9.4 (8.5-10.1) mg/dl Phosphorus 3.9 (2.5-4.9) mg/dl Magnesium 2.5 H (1.8-2.4) mg/dl Total Bilirubin 0.5 (0.2-1) mg/dl Direct Bilirubin 0.3 H (0-0.2) mg/dl AST 24 (15-37) U/L ALT 23 (12-78) U/L Alkaline Phosphatase 259 H (45-117) U/L Troponin I < 0.015 (0-0.045) ng/ml NT-Pro-B Natriuret Pep 4884 H (0-1800) pg/ml Total Protein 7.5 (6.4-8.2) gm/dl Albumin 3.0 L (3.4-5.0) gm/dl Globulin 4.5 H (2.5-4.0) gm/dl Albumin/Globulin Ratio 0.7 L (0.9-2) Lipase 602 H (73-393) U/L TSH 3.820 (0.300-4.500) uIu/ml Urine Color Urine Appearance (Clear) Urine pH (4.5-7.5) Ur Specific [place] (1.000-1.030) Urine Protein (Negative) Urine Glucose (UA) (Negative) Urine Ketones (Negative) Urine Blood (Negative) Urine Nitrite (Negative) Urine Bilirubin (Negative) Urine Urobilinogen (Negative) Ur Leukocyte Esterase (Negative) COVID-19 Eval Order SARS-CoV-2 (PCR) (Negative) 07/11/21 07/11/21 07/11/21 Range/Units 13:00 13:12 13:12 WBC (4.8-10.8) K/uL RBC (4.7-6.1) M/uL Hgb (14.0-18.0) g/dL Hct (42-52) % MCV (80-100) fL MCH (25-34) pg MCHC (32-36) g/dL RDW Std Deviation (36.4-46.3) fL RDW Coeff of Jeff (11.5-14.5) % Plt Count (130-400) K/uL MPV (7.4-10.4) fL Immature Gran % (Auto) % Neut % (Auto) % Lymph % (Auto) % Nance % (Auto) % Eos % (Auto) % Baso % (Auto) % Neut # (Auto) (1.4-6.5) K/uL Lymph # (Auto) (1.2-3.4) K/uL Nance # (Auto) (0.11-0.59) K/uL Eos # (Auto) (0-0.5) K/uL Baso # (Auto) (0-0.2) K/uL Immature Gran # (Auto) (0.00-0.02) K/uL PT (9.0-12.0) Seconds INR (0.9-1.1) Sodium (136-145) mmol/L Potassium (3.5-5.1) mmol/L Chloride (98-107) mmol/L Carbon Dioxide (21-32) mmol/L Anion Gap (3-11) BUN (7-18) mg/dl Creatinine (0.6-1.4) mg/dl Est Cr Clr Drug Dosing ml/min Est GFR ( Amer) ml/min Est GFR (Non-Af Amer) ml/min BUN/Creatinine Ratio (10-20) Glucose (70-99) mg/dl Calcium (8.5-10.1) mg/dl Phosphorus (2.5-4.9) mg/dl Magnesium (1.8-2.4) mg/dl Total Bilirubin (0.2-1) mg/dl Direct Bilirubin (0-0.2) mg/dl AST (15-37) U/L ALT (12-78) U/L Alkaline Phosphatase (45-117) U/L Troponin I (0-0.045) ng/ml NT-Pro-B Natriuret Pep (0-1800) pg/ml Total Protein (6.4-8.2) gm/dl Albumin (3.4-5.0) gm/dl Globulin (2.5-4.0) gm/dl Albumin/Globulin Ratio (0.9-2) Lipase (73-393) U/L TSH (0.300-4.500) uIu/ml Urine Color Yellow Urine Appearance Clear (Clear) Urine pH 5.5 (4.5-7.5) Ur Specific [place] 1.010 (1.000-1.030) Urine Protein Negative (Negative) Urine Glucose (UA) Negative (Negative) Urine Ketones Negative (Negative) Urine Blood Negative (Negative) Urine Nitrite Negative (Negative) Urine Bilirubin Negative (Negative) Urine Urobilinogen Negative (Negative) Ur Leukocyte Esterase Negative (Negative) COVID-19 Eval Order Covid19 at [facility] SARS-CoV-2 (PCR) NEGATIVE (Negative) Administered Medications Amiodarone HCl (Amiodarone 200 Mg Tab) 200 mg PO HS [place] Stop: 08/10/21 20:59 Last Admin: 07/11/21 20:53 Dose: 200 mg Documented by: [id number] Apixaban (Apixaban 5 Mg Tablet) 5 mg PO BID [place] Stop: 08/10/21 20:59 Last Admin: 07/11/21 20:59 Dose: 5 mg Documented by: [id number] Metoprolol Succinate (Metoprolol Succ 50mg Ext Rel Tab) 50 mg PO BID [place] Stop: 08/10/21 20:59 Last Admin: 07/11/21 21:00 Dose: Not Given Documented by: [id number] Multivitamins/Minerals (Cerovite Adv Formula Tab) 1 tab PO BID [place] Stop: 08/10/21 20:59 Last Admin: 07/11/21 21:00 Dose: 1 tab Documented by: [id number] Nystatin (Nystatin Powder 15gm Btl) 1 appln EXT TID [place] Stop: 07/21/21 20:59 Last Admin: 07/11/21 21:00 Dose: 1 appln Documented by: [id number] Discontinued Medications Bumetanide 4 mg/ Syringe 16 mls @ 4 mls/min IV ONE ONE Stop: 07/11/21 14:55 Last Admin: 07/11/21 15:05 Dose: 4 mls/min Documented by: [id number] Imaging Data Radiologist's Impression: Chest X-Ray 07/11/21 12:42 XR chest 1V portable CLINICAL HISTORY: Atypical chest pain TECHNIQUE: Single frontal radiograph of the chest was obtained. Comparison: Comparison is made to rib series on 07/22/2021 FINDINGS: No lines and tubes are seen. Cardiomegaly is noted. Prominence and cephalization of the vasculature is seen. Moderate left pleural effusion is seen. IMPRESSION: 1. Moderate left pleural effusion. 2. Mild pulmonary edema. Left retrocardiac airspace opacity cannot be entirely excluded. 3. Cardiomegaly. ACT 112: Negative or not required by law. Electronically signed by: Justin Kumar M.D. 07/11/2021 1:56 PM Discharge Plan Visit Data Chief Complaint: Weakness Stated Complaint: weakness ED Provider: Daryl Johnson Discharge Problem: Hypervolemia due to congestive heart failure, Bilateral edema of lower extremity, Weakness generalized, Acute on chronic renal insufficiency Patient Disposition: Admitted As Inpatient Discharge Instructions Interventions: ED Discharge Assessment Last Done: 07/11/21 18:15
[2021-07-11] MEDS ORDERED: ACETAMINOPHEN 325 MG TAB PO PRN (18:55)
[2021-07-11] MEDS ORDERED: NITROGLYCERIN SL 0.4 MG/TAB TAB SL PRN (18:55)
[2021-07-11] MEDS: AMIODARONE 200 MG TAB PO SCH (20:53)
[2021-07-11] MEDS: APIXABAN 5 MG TABLET PO SCH (20:59)
[2021-07-11] MEDS: NYSTATIN POWDER 15GM BTL EXT SCH (21:00)
[2021-07-11] MEDS: CEROVITE ADV FORMULA TAB PO SCH (21:00)
[2021-07-11] MEDS: METOPROLOL SUCC 50MG EXT REL TAB PO SCH (21:00)
--- NOTE | 2021-07-11 21:03 | Ultrasound Report ---
ULTRASOUND KIDNEYS AND BLADDER CLINICAL HISTORY: Acute renal insufficiency. COMPARISON STUDY: Abdominal CT dated 07/11/2021. TECHNIQUE: Real-time, grayscale, and color flow sonography of the kidneys and bladder is performed. I mages are reviewed in the transverse and longitudinal planes. FINDINGS: Kidneys: The kidneys demonstrate mild cortical atrophy. Echotexture is normal. The right kidney measu res 11.1 x 6.3 x 6.8 cm and the left kidney measures 11.1 x 5.7 x 6.3 cm. There is no hydronephrosis . No shadowing renal calculi are identified. There is no sonographic evidence of contour deforming re nal mass lesion. No perinephric fluid is identified. Bladder: The partially distended bladder is normal in appearance. Bilateral ureteral jets were seen. IMPRESSION: 1. The kidneys demonstrate mild cortical atrophy and are without hydronephrosis. 2. The bladder is normal as visualized. ACT 112: Negative or not required by law. Electronically signed by: Nikolai Bacon M.D. 07/11/2021 9:02 PM
[2021-07-11] MEDS: COLESTIPOL HCL 1 GM TAB PO SCH (23:32)
[2021-07-12] MEDS: traMADol HCL 50 MG TABLET PO PRN ×2 (02:24→20:06)
[2021-07-12 07:13] LABS: Basophils # (auto) 0.02 K/uL (0-0.2); Basophils % (auto) 0.2 %; Eosinophils # (auto) 0.09 K/uL (0-0.5); Hematocrit (blood only) 31.1 % (42-52); Hemoglobin 9.7 g/dL (14.0-18.0); Immature Granulocytes # (auto) 0.01 K/uL (0.00-0.02); Immature Granulocytes % (auto) 0.1 %; Lymphocytes # (auto) 0.62 K/uL (1.2-3.4); Lymphocytes % (auto) 7.1 %; Mean Corpuscular Hemoglobin 28.7 pg (25-34); Mean Corpuscular Hgb Conc 31.2 g/dL (32-36); Mean Platelet Volume 10.2 fL (7.4-10.4); Monocytes # (auto) 0.63 K/uL (0.11-0.59); Monocytes % (auto) 7.2 %; Neutrophils # (auto) 7.39 K/uL (1.4-6.5); Neutrophils % (auto) 84.4 %; Platelet Count 290 K/uL (130-400); RDW Coefficient of Variation 17.8 % (11.5-14.5); RDW Standard Deviation 58.4 fL (36.4-46.3); Red Blood Count 3.38 M/uL (4.7-6.1); White Blood Count 8.76 K/uL (4.8-10.8)
[2021-07-12 07:43] LABS: BUN Creatinine Ratio 28.4 (10-20); Calcium 9.8 mg/dl (8.5-10.1); Creatinine Clr Calc Pharmacy 25.2 ml/min; Est GFR (African American) 21.4 ml/min; Est GFR (Non-African American) 18.5 ml/min; Potassium 4.6 mmol/L (3.5-5.1)
[2021-07-12] MEDS: NYSTATIN POWDER 15GM BTL EXT SCH ×3 (07:44→20:07)
[2021-07-12] MEDS: METOPROLOL SUCC 50MG EXT REL TAB PO SCH ×2 (07:45→20:08)
[2021-07-12] MEDS: allopurinoL 300 MG TAB PO SCH (07:45)
[2021-07-12] MEDS: SERTRALINE HCL 50 MG TABLET PO SCH (07:45)
[2021-07-12] MEDS: MULTIVITAMIN TAB PO SCH (07:45)
[2021-07-12] MEDS: APIXABAN 5 MG TABLET PO SCH ×2 (07:45→20:08)
[2021-07-12] MEDS: CLOPIDOGREL BISULFATE 75 MG TAB PO SCH (07:45)
[2021-07-12] MEDS: CEROVITE ADV FORMULA TAB PO SCH ×2 (07:45→20:07)
[2021-07-12] MEDS: OMEGA-3 (PURIFIED FISH OIL) 1 GM CAP PO SCH (07:45)
--- NOTE | 2021-07-12 11:22 | Nephrology Consultation ---
Date of Consultation July 12, 2021 Assessment & Plan (1) Acute on chronic renal insufficiency: (2) Hypervolemia due to congestive heart failure: (3) Weakness generalized: (4) Bilateral edema of lower extremity: (5) Ischemic cardiomyopathy: 76-year-old gentleman admitted with generalized weakness and volume overload with history of congestive heart failure with both systolic and diastolic dysfunction, EF around 30%, stage III CKD secondary to cardiorenal syndrome, baseline creatinine 1.6-1.8. His dry weight around 240 and on admission he was 250 lb and reports missing on his regular Bumex dose. Noted to have CIRILO with creatinine 3.7 on admission which slightly improved to 3.1 this morning. Urinalysis and renal ultrasound otherwise unremarkable. Overall feeling better. Continues to be slightly volume overloaded but no respiratory distress. Mainly seems to have significant bilateral lower extremity edema which has been chronic. -- resume Bumex 4 mg p.o. b.i.d., aim for net negative around 0.5-1 L per day. Monitor intake and output. -- Monitor renal function electrolytes daily while on high-dose diuretics. -- check iron study, PTH -- dose meds for GFR<30, left arm nephrology precaution in case he needs vascular access in future if he needs dialysis. -- Eventually he will need placement to a long-term care facility as it seems like he has been having significant difficulty with minimum chores at home and takeing care of himself. Thank you for allowing me to participate in your patient's care. It was a pleasure to see Mr. Peterson. History of Present Illness Reason for Consultation: Acute kidney injury, volume overload. Attending Physician: Heber Spangler MD History of Present Illness Mr. Peterson is a 76-year-old gentleman with PMH significant for stage IIIB CKD, CAD s/p PCI 08/2020, paroxysmal Atrial fib on amiodarone, CHF, HTN, DM admitted to the hospital with generalized weakness, volume overload and CIRILO. Nephrology consult was requested for management of CIRILO and volume status. EMR records where reviewed in detail during patient's visit. Jesús presented to hospital yesterday with progressive generalized weakness, difficulty walking and weight gain. He has history of CHF with EF 30 to 35% and had repeated hospitalization for volume overload requiring high dose of diuretics. he was last hospitalized in May for almost 2 weeks and after discharge he was in [facility] for a week and then went home. he reports feeling his best in last few years while he was at [facility]. Since he went home he again started to clinically decline with getting fatigued, difficulty walking because of leg weakness and having difficulty with minimum activity and chores. Follows with heart failure clinic, lately he was on Bumex 4 mg twice a day, his dry weight 240 lb. He reports not taking afternoon dose of Bumex on several occasions over last 10 days specially when he had to go out in the afternoon for different appointments. His weakness progressively worsened and he decided to come to ER yesterday evening. On admission he was around 250 lbs, almost 10 lbs above his dry weight. Chest x- ray showed moderate left pleural effusion and pulmonary vascular congestion. Blood pressure was relatively stable. BNP was elevated above 4000, normally stays around 3000 to 5000. lab showed creatinine of 3.7, baseline creatinine has been around 1.7-1.8 lately. Urinalysis was negative for proteinuria hematuria pyuria. Renal ultrasound showed bilateral otherwise normal size kidney, no postrenal obstruction, had a slight increase in cortical echogenicity. He received 1 dose Bumex 2 mg IV. He had 1 L of urine output. Hemoglobin was low at 9.7. He has multiple significant past medical history including stage 3B CKD, b/l cr 1.6 to 1.8 secondary to cardiorenal syndrome, CAD s/p PCI in August 2020 with multiple stent, was on Entresto before which is currently on hold because of CIRILO. AFib, currently in sinus rhythm, rate controlled on amiodarone on and anticoagulation. Echo on 12/2020 showed EF 30 to 35%, LV and RV mildly dilated, Moderate MR. Has diabetes, hypertension and dyslipidemia however has h/o intolerance to statin therapy. He lives alone, never , no children, retired, never smoker. He reports overall feeling much better today as he does not have to worry about doing his chores, remember to take his meds. Cr slightly improved to 3.1 this morning. Allergies Allergy/AdvReac Type Severity Reaction Status Date / Time spironolactone AdvReac Severe Hyperkalemia, Verified 07/11/21 16:06 bradycardia Rkxzurj-APK-JxT Reductase AdvReac Intermediate Myalgias Verified 07/11/21 16:06 Inhibitor [Cjjgmso-Ozi-Out Reductase Inhibitor] Home Medications Medication Instructions Recorded Confirmed Type gimgnhyw-cyx-unrof acid 300 1 tab PO QAM 05/11/19 07/11/21 History mcg-lycopene 600 mcg-lutein 300 mcg tablet (Centrum Silver Men) vitamins A,C,O-fvoe-ytynbd 14,320 1 cap PO BID 05/11/19 07/11/21 History unit-226 mg-200 unit capsule (PreserVision AREDS) omega 1-xby-zqj-fish oil 1,000 mg 1 cap PO QAM 05/20/19 07/11/21 History (120 mg-180 mg) capsule (Fish Oil) amiodarone 200 mg tablet (Pacerone) 200 mg PO HS 10/06/20 07/11/21 History sertraline 50 mg tablet (Zoloft) 50 mg PO QAM 11/14/20 07/11/21 History apixaban 5 mg tablet (Eliquis) 5 mg PO BID #180 tab 03/28/21 07/11/21 Rx clopidogrel 75 mg tablet (Plavix) 75 mg PO QAM 05/02/21 07/11/21 History nitroglycerin 0.4 mg sublingual 0.4 mg SL Q5M PRN 05/02/21 07/11/21 History tablet (Nitrostat) metoprolol succinate 50 mg capsule 50 mg PO BID #60 ea 05/13/21 07/11/21 Rx sprinkle, ext. release 24 hr nystatin 100,000 unit/gram topical 1 applic EXT TID #30 g 05/13/21 07/11/21 Rx powder (Nystop) tramadol 50 mg tablet 50 mg PO Q8H PRN 05/18/21 07/11/21 History albuterol sulfate 90 mcg/actuation 2 puff INHALATION Q6H PRN #6.7 g 06/26/21 07/11/21 Rx aerosol inhaler (Ventolin HFA) bumetanide 2 mg tablet 4 mg PO BID #120 tab 06/26/21 07/11/21 Rx colestipol 1 gram tablet (Colestid) 2 g PO HS tab 07/05/21 07/11/21 History sacubitril 97 mg-valsartan 103 mg 1 tab PO BID 11/04/21 11/09/21 History tablet (Entresto) allopurinol 300 mg tablet 300 mg PO QAM 07/11/21 07/11/21 History Patient History Medical History Arthritis back, knees Atrial fibrillation New onset a. fib 08/2020 in setting of NSTEMI (which resulted in placement of 3 stents) Bilateral edema of lower extremity Chronic anticoagulation Chronic systolic heart failure Coronary artery disease stent x1 (2006), stents x3 (08/2020) Diastolic CHF Newly diagnosed during 03/2020 admission, responded well to diuretics > discharged on diuretics and referred to HF clinic per cardiology records Fall from standing Gout of ankle Hx of myocardial infarction 2006, NSTEMI (08/2020 > 3 stents) Ischemic cardiomyopathy Low back pain Lyme disease hx of 2018 Major depressive disorder Obesity Pulmonary embolism 5+ years ago Surgical History History of prostate biopsy S/P coronary artery stent placement stent x1 (2006), stents x3 (08/2020) Family History Family/Other Prostate cancer Father Heart disease Mother Bone cancer Sister Colon cancer Social History Smoking Status: Never smoker Second Hand Exposure: No; Hx Alcohol Use: Yes Alcohol type: wine Hx Substance Use: No Preferred Language: Latvian Communication Ability: Effective 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 Physical Exam Constitutional: WD/WN, vitals as above no acute distress Eyes: + anicteric sclerae ENMT: Ears: no hearing impairment and no external ear abnormality Neck: normal visual inspection Thyroid: no thyromegaly Respiratory: normal respiratory effort; no respiratory distress and no cough Auscultation: + diminished lung sounds and + rales Cardiovascular: Rate/Rhythm: regular rate and regular rhythm Heart Sounds: normal S1 and normal S2 Vessels: no JVD Extremities: no edema Gastrointestinal (Abdomen): Inspection/Auscultation: abdomen normal to inspection and normal bowel sounds Percussion/Palpation: abdomen soft; abdomen nontender Musculoskeletal: Extremities: extremities normal to inspection Skin: normal turgor; no rashes Neurologic: no focal motor deficits and not confused Psychiatric: Orientation: alert and oriented x 3 Affect: euthymic affect Results & Data ([facility]) Vital Signs (Past 12 Hours) Vital Signs Temp Pulse Resp BP BP Pulse Ox 07/12/21 07:35 36.4 C L 110 H 20 117/79 93 07/12/21 03:15 36.4 C L 56 L 18 94/57 L 95 07/11/21 23:52 36.4 C L 67 18 103/70 95 PG Care Time/CCT Total # of Minutes Spent Total Time Spent with Patient: Total time spent is greater than 50% in coordination of care (as documented) at patient's floor/unit and/or counseling patient: Coding Level of Care Code 63223 Initial Inpt Care Lvl 3 Diagnoses Acute on chronic renal insufficiency N28.9; N18.9 Hypervolemia due to congestive heart failure E87.70; I50.9 Weakness generalized R53.1 Bilateral edema of lower extremity R60.0 Ischemic cardiomyopathy I25.5
--- NOTE | 2021-07-12 12:25 | Hospitalist Progress Note ---
Date of Service July 12, 2021 Assessment & Plan (1) Hypervolemia due to congestive heart failure: Plan: Patient presents with weight gain and leg edema. Follows up with cardiology as outpatient. BNP above 4000, compared to 1999 during his last admission Received 4 mg IV Bumex in the ED yesterday. We will defer to cardiology regarding diuresis. We will continue to monitor input and output, daily weight (2) Acute on chronic renal insufficiency: Plan: Serum creatinine was 3.36 on admission. Some improvement to 3.09 after diuresis. Nephrology on consult We will avoid nephrotoxic's (3) Bilateral edema of lower extremity: Plan: Bilateral edema is mostly due to venous insufficiency We will encourage Steven wraps Also encourage elevation of legs when he is in bed (4) Ischemic cardiomyopathy: Plan: Last ejection fraction 30 to 35%. Patient had refused ICD in the past Continue home medications. Cardiology on consult. (5) Gout: Plan: On allopurinol at home, continue. (6) Atrial fibrillation: Plan: Currently in sinus rhythm Continue amiodarone/metoprolol Continue Eliquis for anticoagulation (7) CAD S/P percutaneous coronary angioplasty: Plan: Continue Plavix, Eliquis, Metoprolol, not on statin due to Myalgias. Admission and Anticipated Discharge Date Admission Date: July 11, 2021 Subjective Patient was seen and examined this morning, was sitting up in the chair, denies any significant shortness of breath Review of Systems Review of Systems: All systems reviewed are negative, apart from the ones contained in the history. Physical Exam Physical Exam: The patient is awake, alert and oriented 3, well developed and well nourished, normocephalic and atraumatic, lying in bed and in no acute distress. HEENT--PERRL, EOMI, mucous membranes and oropharynx mildly dry Neck--supple. No JVD. No bruits. Thyroid normal, trachea midline, no adenopathy. Heart--normal S1 and S2. No murmurs, rubs or gallops. Lungs--clear bilaterally, no respiratory distress, no accessory muscle use. Abdomen--normal bowel sounds and soft. Mild epigastric and left sided abdominal pain Extremities--bilateral leg edema, signs of chronic venous stasis Dermatologic--normal skin turgor, normal color, no abnormal lymph nodes, no rash. Neurologic--cranial nerves II through XII grossly intact. Rheumatologic--normal range of motion. Psychiatric--normal affect. Results & Data Results & Data ([facility]) Vital Signs (Past 12 Hours) Vital Signs Temp Pulse Resp BP Pulse Ox 07/12/21 07:35 97.5 F L 110 H 20 117/79 93 07/12/21 03:15 97.5 F L 56 L 18 94/57 L 95 Laboratory Results Laboratory Results - last 24 hr 07/11/21 07/11/21 07/11/21 12:40 12:40 12:40 WBC 9.04 RBC 3.38 L Hgb 9.8 L Hct 30.3 L MCV 89.6 MCH 29.0 MCHC 32.3 RDW Std Deviation 58.0 H RDW Coeff of Jeff 17.9 H Plt Count 326 MPV 10.7 H Immature Gran % (Auto) 0.2 Neut % (Auto) 86.0 Lymph % (Auto) 5.5 [place] % (Auto) 7.3 Eos % (Auto) 0.9 Baso % (Auto) 0.1 Neut # (Auto) 7.77 H Lymph # (Auto) 0.50 L [place] # (Auto) 0.66 H Eos # (Auto) 0.08 Baso # (Auto) 0.01 Immature Gran # (Auto) 0.02 PT 11.2 INR 1.1 Sodium 135 L Potassium 4.8 Chloride 101 Carbon Dioxide 27 Anion Gap 7.0 BUN 93 H Creatinine 3.69 H Est Cr Clr Drug Dosing 21.3 Est GFR ( Amer) 17.3 Est GFR (Non-Af Amer) 14.9 BUN/Creatinine Ratio 25.1 H Glucose 145 H POC Glucose Calcium 9.4 Phosphorus 3.9 Magnesium 2.5 H Total Bilirubin 0.5 Direct Bilirubin 0.3 H AST 24 ALT 23 Alkaline Phosphatase 259 H Troponin I < 0.015 NT-Pro-B Natriuret Pep 4884 H Total Protein 7.5 Albumin 3.0 L Globulin 4.5 H Albumin/Globulin Ratio 0.7 L Lipase 602 H TSH 3.820 Urine Color Urine Appearance Urine pH Ur Specific [place] Urine Protein Urine Glucose (UA) Urine Ketones Urine Blood Urine Nitrite Urine Bilirubin Urine Urobilinogen Ur Leukocyte Esterase COVID-19 Eval Order SARS-CoV-2 (PCR) 07/11/21 07/11/21 07/11/21 13:00 13:12 13:12 WBC RBC Hgb Hct MCV MCH MCHC RDW Std Deviation RDW Coeff of Jeff Plt Count MPV Immature Gran % (Auto) Neut % (Auto) Lymph % (Auto) [place] % (Auto) Eos % (Auto) Baso % (Auto) Neut # (Auto) Lymph # (Auto) [place] # (Auto) Eos # (Auto) Baso # (Auto) Immature Gran # (Auto) PT INR Sodium Potassium Chloride Carbon Dioxide Anion Gap BUN Creatinine Est Cr Clr Drug Dosing Est GFR ( Amer) Est GFR (Non-Af Amer) BUN/Creatinine Ratio Glucose POC Glucose Calcium Phosphorus Magnesium Total Bilirubin Direct Bilirubin AST ALT Alkaline Phosphatase Troponin I NT-Pro-B Natriuret Pep Total Protein Albumin Globulin Albumin/Globulin Ratio Lipase TSH Urine Color Yellow Urine Appearance Clear Urine pH 5.5 Ur Specific [place] 1.010 Urine Protein Negative Urine Glucose (UA) Negative Urine Ketones Negative Urine Blood Negative Urine Nitrite Negative Urine Bilirubin Negative Urine Urobilinogen Negative Ur Leukocyte Esterase Negative COVID-19 Eval Order Covid19 at [facility] SARS-CoV-2 (PCR) NEGATIVE 07/11/21 07/12/21 07/12/21 19:49 06:43 06:43 WBC 8.76 RBC 3.38 L Hgb 9.7 L Hct 31.1 L MCV 92.0 MCH 28.7 MCHC 31.2 L RDW Std Deviation 58.4 H RDW Coeff of Jeff 17.8 H Plt Count 290 MPV 10.2 Immature Gran % (Auto) 0.1 Neut % (Auto) 84.4 Lymph % (Auto) 7.1 [place] % (Auto) 7.2 Eos % (Auto) 1.0 Baso % (Auto) 0.2 Neut # (Auto) 7.39 H Lymph # (Auto) 0.62 L [place] # (Auto) 0.63 H Eos # (Auto) 0.09 Baso # (Auto) 0.02 Immature Gran # (Auto) 0.01 PT INR Sodium 138 Potassium 4.6 Chloride 105 Carbon Dioxide 25 Anion Gap 8.0 BUN 88 H Creatinine 3.09 H D Est Cr Clr Drug Dosing 25.2 Est GFR ( Amer) 21.4 Est GFR (Non-Af Amer) 18.5 BUN/Creatinine Ratio 28.4 H Glucose 122 H POC Glucose 114 H Calcium 9.8 Phosphorus Magnesium Total Bilirubin Direct Bilirubin AST ALT Alkaline Phosphatase Troponin I NT-Pro-B Natriuret Pep Total Protein Albumin Globulin Albumin/Globulin Ratio Lipase TSH Urine Color Urine Appearance Urine pH Ur Specific [place] Urine Protein Urine Glucose (UA) Urine Ketones Urine Blood Urine Nitrite Urine Bilirubin Urine Urobilinogen Ur Leukocyte Esterase COVID-19 Eval Order SARS-CoV-2 (PCR) 07/12/21 07:28 WBC RBC Hgb Hct MCV MCH MCHC RDW Std Deviation RDW Coeff of Jeff Plt Count MPV Immature Gran % (Auto) Neut % (Auto) Lymph % (Auto) [place] % (Auto) Eos % (Auto) Baso % (Auto) Neut # (Auto) Lymph # (Auto) [place] # (Auto) Eos # (Auto) Baso # (Auto) Immature Gran # (Auto) PT INR Sodium Potassium Chloride Carbon Dioxide Anion Gap BUN Creatinine Est Cr Clr Drug Dosing Est GFR ( Amer) Est GFR (Non-Af Amer) BUN/Creatinine Ratio Glucose POC Glucose 113 H Calcium Phosphorus Magnesium Total Bilirubin Direct Bilirubin AST ALT Alkaline Phosphatase Troponin I NT-Pro-B Natriuret Pep Total Protein Albumin Globulin Albumin/Globulin Ratio Lipase TSH Urine Color Urine Appearance Urine pH Ur Specific [place] Urine Protein Urine Glucose (UA) Urine Ketones Urine Blood Urine Nitrite Urine Bilirubin Urine Urobilinogen Ur Leukocyte Esterase COVID-19 Eval Order SARS-CoV-2 (PCR) PG Care Time/CCT Total # of Minutes Spent Total Time Spent with Patient: Total time spent is greater than 50% in coordination of care (as documented) at patient's floor/unit and/or counseling patient: Coding Level of Care Code 70178 Subseq Hosp Care Lvl 2 Diagnoses Hypervolemia due to congestive heart failure E87.70; I50.9 Acute on chronic renal insufficiency N28.9; N18.9 Bilateral edema of lower extremity R60.0 Ischemic cardiomyopathy I25.5 Gout M10.9 Atrial fibrillation I48.19 Atrial fibrillation type: persistent (not longstanding) CAD S/P percutaneous coronary angioplasty I25.10; Z98.61 (1) Atrial fibrillation Atrial fibrillation type: persistent (not longstanding) Qualified Code(s): I48.19 - Other persistent atrial fibrillation
--- NOTE | 2021-07-12 13:19 | Electrocardiogram Report ---
Test Reason : Blood Pressure : / mmHG Vent. Rate : 061 BPM Atrial Rate : 061 BPM P-R Int : 362 ms QRS Dur : 108 ms QT Int : 452 ms P-R-T Axes : 005 -49 106 degrees QTc Int : 455 ms Sinus rhythm with 1st degree A-V block Left axis deviation Low voltage QRS Inferior infarct (cited on or before 04-AUG-2007) Anterolateral infarct (cited on or before 04-AUG-2007) Abnormal ECG When compared with ECG of 08-MAY-2021 11:50, No significant change was found Confirmed by Alex Ibarra ([id number]) on 07/12/2021 1:19:35 PM Referred By: REFERRED SELF Confirmed By:Alex Ibarra
[2021-07-12] MEDS: BUMETANIDE 1 MG TAB PO SCH (16:47)
--- NOTE | 2021-07-12 16:50 | Cardiology Consultation ---
Date of Consultation July 12, 2021 Assessment & Plan (1) Acute systolic heart failure: 2. Multivessel CAD 3. Paroxysmal atrial fibrillation 4. Acute on chronic renal insufficiency 5. Bilateral venous ulcers, suspected CVI/edema 6. Failure to thrive Patient readmitted with acute systolic heart failure with primarily right-sided heart failure symptoms. No clear precipitants although it does seem that patient not always taking his maintenance diuretic. Suspect though that recurrent hospitalizations/increase in his diuretic requirement is part of progressing advanced heart failure. Had worsened acute on chronic renal insufficiency on admission, improving with diuresis. Appreciate nephrology input. Agree with resuming Bumex 4 mg twice daily. Goal diuresis greater than 1 L today If urine output inadequate previously responded to metolazone. Continue Toprol-XL. Entresto on hold Continue current amiodarone, Eliquis. Venous reflux ultrasound as an outpatient. We will likely need rehab, long-term assistance post discharge. We will follow History of Present Illness Attending Physician: Heber Spangler MD History of Present Illness Mr. Peterson is a very pleasant 76-year-old gentleman with a history significant for CAD status post anterior [place] in August of 2007, multivessel PCI 08/2020, paroxysmal Atrial fibrillation on amiodarone, heart failure with reduced ejection fraction (EF 30 to 35%), type 2 diabetes, hypertension, dyslipidemia intolerant to statin therapy, and remote pulmonary embolism. His primary employee counselor is Dr. Canchola. He is followed in the Heart Failure Program with Ms. Lee Ann Kennedy. Most recently hospitalized for acute heart failure back in May 2021. -13 L during that admission, weight down to 240. Followed by wound care for bilateral lower extremity ulcerations. Since that time has been followed by heart failure clinic. Has been struggling at home. Bumex increased to 4 mg twice daily. Presented to ED yesterday due to generalized fatigue, mild weight gain and failure to thrive at home. On arrival chest x-ray showed significant pulmonary congestion. ECG without dynamic ST changes. Troponin negative. NT proBNP 4900, same as time of prior admit. Serum creatinine up from baseline of around 1.8 up to 3.7. Given IV Bumex 4 mg in ED. Overnight -800. Creatinine down to 3.1. Most recent cardiac studies: August of 2020- PCI of distal RCA to proximal PDA with 3 x 22 mm milena, mid LAD with 2.75 x 15 mm milena, and distal circumflex with 2.75 x 15 mm Xience. His RCA lesion was felt to be the culprit lesion and left to right collaterals are noted. 12/2020 echo: EF 30 to 35%, LV mildly dilated, apex, anterior wall is akinetic. Normal RV function, mildly dilated RV. Moderate MR Echo 05/2021: LVEF 30 to 35% apical akinesis, mid septum/inferior segments. Hypokinetic mid anterior wall. Moderate MR. estimated PASP 40, RA 15, grade 2 diastolic dysfunction. RV moderately dilated with mild RV dysfunction and worse from 12/2020. Allergies Allergy/AdvReac Type Severity Reaction Status Date / Time spironolactone AdvReac Severe Hyperkalemia, Verified 07/11/21 16:06 bradycardia Zpgqhgj-AYS-PwG Reductase AdvReac Intermediate Myalgias Verified 07/11/21 16:06 Inhibitor [Evmuiye-Jwh-Jqf Reductase Inhibitor] Home Medications Medication Instructions Recorded Confirmed Type xhtbblim-usm-xdfvw acid 300 1 tab PO QAM 05/11/19 07/11/21 History mcg-lycopene 600 mcg-lutein 300 mcg tablet (Centrum Silver Men) vitamins A,C,O-pjrd-tjxjad 14,320 1 cap PO BID 05/11/19 07/11/21 History unit-226 mg-200 unit capsule (PreserVision AREDS) omega 0-eow-wle-fish oil 1,000 mg 1 cap PO QAM 05/20/19 07/11/21 History (120 mg-180 mg) capsule (Fish Oil) amiodarone 200 mg tablet (Pacerone) 200 mg PO HS 10/06/20 07/11/21 History sertraline 50 mg tablet (Zoloft) 50 mg PO QAM 11/14/20 07/11/21 History apixaban 5 mg tablet (Eliquis) 5 mg PO BID #180 tab 03/28/21 07/11/21 Rx clopidogrel 75 mg tablet (Plavix) 75 mg PO QAM 05/02/21 07/11/21 History nitroglycerin 0.4 mg sublingual 0.4 mg SL Q5M PRN 05/02/21 07/11/21 History tablet (Nitrostat) metoprolol succinate 50 mg capsule 50 mg PO BID #60 ea 05/13/21 07/11/21 Rx sprinkle, ext. release 24 hr nystatin 100,000 unit/gram topical 1 applic EXT TID #30 g 05/13/21 07/11/21 Rx powder (Nystop) tramadol 50 mg tablet 50 mg PO Q8H PRN 05/18/21 07/11/21 History albuterol sulfate 90 mcg/actuation 2 puff INHALATION Q6H PRN #6.7 g 06/26/21 07/11/21 Rx aerosol inhaler (Ventolin HFA) bumetanide 2 mg tablet 4 mg PO BID #120 tab 06/26/21 07/11/21 Rx colestipol 1 gram tablet (Colestid) 2 g PO HS tab 07/05/21 07/11/21 History sacubitril 97 mg-valsartan 103 mg 1 tab PO BID 07/06/21 07/11/21 History tablet (Entresto) allopurinol 300 mg tablet 300 mg PO QAM 07/11/21 07/11/21 History Patient History Medical History Arthritis back, knees Atrial fibrillation New onset a. fib 08/2020 in setting of NSTEMI (which resulted in placement of 3 stents) Bilateral edema of lower extremity Chronic anticoagulation Chronic systolic heart failure Coronary artery disease stent x1 (2006), stents x3 (08/2020) Diastolic CHF Newly diagnosed during 03/2020 admission, responded well to diuretics > discharged on diuretics and referred to HF clinic per cardiology records Fall from standing Gout of ankle Hx of myocardial infarction 2006, NSTEMI (08/2020 > 3 stents) Ischemic cardiomyopathy Low back pain Lyme disease hx of 2018 Major depressive disorder Obesity Pulmonary embolism 5+ years ago Surgical History History of prostate biopsy S/P coronary artery stent placement stent x1 (2006), stents x3 (08/2020) Family History Family/Other Prostate cancer Father Heart disease Mother Bone cancer Sister Colon cancer Social History Smoking Status: Never smoker Second Hand Exposure: No; Hx Alcohol Use: Yes Alcohol type: wine Hx Substance Use: No Preferred Language: Italian Communication Ability: Effective 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 Beliefs That Will Affect Care: None marital status: Single Current Living Situation: Alone current occupational status: retired Other Information That Helps Us Care for You: No Feels Safe at Home: Yes Safety Concerns: Feels Safe At This Time Diet Comment: Has special diet unsure what kind Assistive Devices: Cane and Glasses Review of Systems Review of Systems: All systems reviewed & are unremarkable except as noted in HPI & below Physical Exam Physical Exam: General: Comfortable, in good spirits HEENT: Sclerae anicteric Lungs: Decreased breath sounds at left base, few crackles at right base Cardiac: Distant heart sounds, regular, bradycardic, 2/6 holosystolic murmur heard best at the apex Vascular: 2+ radial bilaterally Abdomen: Soft, nontender Extremities: Well perfused, 2+ bilateral lower extremity edema. Wounds dressed. Neuro: Nonfocal Psych: Alert orient x3, normal affect and mood Results & Data ([facility]) Vital Signs (Past 12 Hours) Vital Signs Temp Pulse Resp BP Pulse Ox 07/12/21 15:19 97.5 F L 52 L 16 95/55 L 91 07/12/21 12:29 97.5 F L 58 L 16 119/63 90 07/12/21 07:35 97.5 F L 110 H 20 117/79 93 PG Care Time/CCT Total # of Minutes Spent Total Time Spent with Patient: Total time spent is greater than 50% in coordination of care (as documented) at patient's floor/unit and/or counseling patient: Coding Level of Care Code 33540 Initial Inpt Care Lvl 3 Diagnoses Acute systolic heart failure I50.21
[2021-07-12] MEDS: AMIODARONE 200 MG TAB PO SCH (20:08)
[2021-07-12] MEDS: COLESTIPOL HCL 1 GM TAB PO SCH (22:32)
[2021-07-13 08:45] LABS: Hematocrit (blood only) 30.6 % (42-52); Hemoglobin 9.5 g/dL (14.0-18.0); Mean Corpuscular Hemoglobin 28.6 pg (25-34); Mean Corpuscular Volume 92.2 fL (80-100); Mean Platelet Volume 10.2 fL (7.4-10.4); Platelet Count 285 K/uL (130-400); RDW Coefficient of Variation 17.9 % (11.5-14.5); RDW Standard Deviation 59.2 fL (36.4-46.3); Red Blood Count 3.32 M/uL (4.7-6.1); White Blood Count 9.08 K/uL (4.8-10.8)
[2021-07-13] MEDS: SERTRALINE HCL 50 MG TABLET PO SCH (08:50)
[2021-07-13] MEDS: CLOPIDOGREL BISULFATE 75 MG TAB PO SCH (08:51)
[2021-07-13] MEDS: MULTIVITAMIN TAB PO SCH (08:51)
[2021-07-13] MEDS: OMEGA-3 (PURIFIED FISH OIL) 1 GM CAP PO SCH (08:51)
[2021-07-13] MEDS: allopurinoL 300 MG TAB PO SCH (08:51)
[2021-07-13] MEDS: CEROVITE ADV FORMULA TAB PO SCH ×2 (08:51→21:58)
[2021-07-13] MEDS: BUMETANIDE 1 MG TAB PO SCH ×2 (08:52→16:53)
[2021-07-13] MEDS: APIXABAN 5 MG TABLET PO SCH ×2 (08:52→21:59)
[2021-07-13] MEDS: METOPROLOL SUCC 50MG EXT REL TAB PO SCH ×2 (08:58→22:00)
[2021-07-13] MEDS: NYSTATIN POWDER 15GM BTL EXT SCH ×3 (09:00→22:00)
[2021-07-13 09:11] LABS: Albumin Level 2.8 gm/dl (3.4-5.0); BUN Creatinine Ratio 28.7 (10-20); Calcium 9.5 mg/dl (8.5-10.1); Creatinine Clr Calc Pharmacy 27.8 ml/min; Est GFR (African American) 24.4 ml/min; Est GFR (Non-African American) 21.1 ml/min; Magnesium 2.4 mg/dl (1.8-2.4); Potassium 3.7 mmol/L (3.5-5.1)
--- NOTE | 2021-07-13 09:28 | Nephrology Progress Note ---
Date of Service July 13, 2021 Assessment & Plan (1) Acute on chronic renal insufficiency: (2) Hypervolemia due to congestive heart failure: (3) Weakness generalized: (4) Bilateral edema of lower extremity: (5) Ischemic cardiomyopathy: Plan: 76-year-old gentleman admitted with generalized weakness and volume overload with history of congestive heart failure with both systolic and diastolic dysfunction, EF around 30%, stage III CKD secondary to cardiorenal syndrome, baseline creatinine 1.6-1.8. His dry weight around 240 and on admission he was 250 lb and reports missing on his regular Bumex dose. Noted to have CIRILO with creatinine 3.7 on admission which slightly improved to 3.1 this morning. Urinalysis and renal ultrasound otherwise unremarkable. Overall feeling better. Continues to be slightly volume overloaded but no respiratory distress. Mainly seems to have significant bilateral lower extremity edema which has been chronic. renal function improving, electrolyte acceptable. Blood pressure stable. Decent urine output with net negative. -- continue Bumex 4 mg p.o. b.i.d., aim for net negative around 0.5-1 L per day. Monitor intake and output. -- Monitor renal function and electrolytes daily while on high-dose diuretics. -- dose meds for GFR<30, left arm nephrology precaution in case he needs vascular access in future if he needs dialysis. -- Eventually he will need placement to a long-term care facility as it seems like he has been having significant difficulty with minimum chores at home and taking care of himself. Will follow Admission and Anticipated Discharge Date Admission Date: July 11, 2021 Subjective Donor was seen and examined in his room this morning. No overnight events. Overall feeling better, appetite decent, feeling a bit stronger. Complained of some feeling of "echo chamber" around his face and neck. Blood pressure stable, no respiratory distress. Renal function continues to improve, electrolyte acceptable. Responding to diuretics with net negative around 1 L last 24 hour. Review of Systems Review of Systems: Detailed ROS was done and otherwise negative except mentioned in HPI. Physical Exam Constitutional: WD/WN, vitals as above no acute distress Eyes: + anicteric sclerae ENMT: Ears: no hearing impairment Neck: normal visual inspection Respiratory: normal respiratory effort; no respiratory distress Auscultation: + diminished lung sounds Cardiovascular: Rate/Rhythm: regular rate and regular rhythm Vessels: no JVD Musculoskeletal: Bilateral lower extremity edema with superficial ulceration and weeping, in dressing Neurologic: no focal motor deficits and not confused Psychiatric: Orientation: alert and oriented x 3 Affect: euthymic affect Results & Data ([facility]) Vital Signs (Past 12 Hours) Vital Signs Temp Pulse Resp BP BP Pulse Ox 07/13/21 08:55 66 106/66 07/13/21 06:57 36.3 C L 59 L 20 109/73 93 07/13/21 04:23 36.4 C L 90 20 107/68 96 07/12/21 23:47 36.3 C L 60 18 130/63 92 PG Care Time/CCT Total # of Minutes Spent Total Time Spent with Patient: Total time spent is greater than 50% in coordination of care (as documented) at patient's floor/unit and/or counseling patient: Coding Level of Care Code 68299 Subseq Hosp Care Lvl 3 Diagnoses Acute on chronic renal insufficiency N28.9; N18.9 Hypervolemia due to congestive heart failure E87.70; I50.9 Weakness generalized R53.1 Bilateral edema of lower extremity R60.0 Ischemic cardiomyopathy I25.5
[2021-07-13 09:29] LABS: Ferritin 40.5 ng/ml (8-388)
--- NOTE | 2021-07-13 13:04 | Hospitalist Progress Note ---
Date of Service July 13, 2021 Assessment & Plan (1) Hypervolemia due to congestive heart failure: Plan: Will continue to diurese with Bumex 4mg Monitor I/O, daily weights Cardiology on consult, appreciate recs (2) Acute on chronic renal insufficiency: Plan: Some improvement in renal function Cr 2.77 today Nephrology on consult We will avoid nephrotoxic's (3) Bilateral edema of lower extremity: Plan: Bilateral edema is mostly due to venous insufficiency We will encourage Steven wraps Also encourage elevation of legs when he is in bed (4) Ischemic cardiomyopathy: Plan: Last ejection fraction 30 to 35%. Patient had refused ICD in the past Continue home medications. Cardiology on consult. (5) Gout: Plan: On allopurinol at home, continue. (6) Atrial fibrillation: Plan: Currently in sinus rhythm Continue amiodarone/metoprolol Continue Eliquis for anticoagulation (7) CAD S/P percutaneous coronary angioplasty: Plan: Continue Plavix, Eliquis, Metoprolol, not on statin due to Myalgias. (8) Wound of lower extremity: Plan: Continue wound care Plan: Anticipate discharge to a rehab facility when medically stable Admission and Anticipated Discharge Date Admission Date: July 13, 2021 Subjective Patient seen and examined today, was sitting up in the chair. SOB is much improved, leg swelling also better Review of Systems Review of Systems: All systems reviewed are negative, apart from the ones contained in the history. Physical Exam Physical Exam: The patient is awake, alert and oriented 3, well developed and well nourished, normocephalic and atraumatic, lying in bed and in no acute distress. HEENT--PERRL, EOMI, mucous membranes and oropharynx mildly dry Neck--supple. No JVD. No bruits. Thyroid normal, trachea midline, no adenopathy. Heart--normal S1 and S2. No murmurs, rubs or gallops. Lungs--clear bilaterally, no respiratory distress, no accessory muscle use. Abdomen--normal bowel sounds and soft. Mild epigastric and left sided abdominal pain Extremities--bilateral leg edema, signs of chronic venous stasis Dermatologic--normal skin turgor, normal color, no abnormal lymph nodes, no rash. Neurologic--cranial nerves II through XII grossly intact. Rheumatologic--normal range of motion. Psychiatric--normal affect. Results & Data Results & Data ([facility]) Vital Signs (Past 12 Hours) Vital Signs Temp Pulse Resp BP BP Pulse Ox 07/13/21 10:00 97.9 F 84 20 117/72 94 07/13/21 08:55 66 106/66 07/13/21 06:57 97.3 F L 59 L 20 109/73 93 07/13/21 04:23 97.5 F L 90 20 107/68 96 Laboratory Results Laboratory Results - last 24 hr 07/12/21 07/13/21 07/13/21 16:41 08:29 08:29 WBC 9.08 RBC 3.32 L Hgb 9.5 L Hct 30.6 L MCV 92.2 MCH 28.6 MCHC 31.0 L RDW Std Deviation 59.2 H RDW Coeff of Jeff 17.9 H Plt Count 285 MPV 10.2 Sodium 138 Potassium 3.7 D Chloride 103 Carbon Dioxide 26 Anion Gap 9.0 BUN 80 H Creatinine 2.77 H D Est Cr Clr Drug Dosing 27.8 Est GFR ( Amer) 24.4 Est GFR (Non-Af Amer) 21.1 BUN/Creatinine Ratio 28.7 H Glucose 140 H POC Glucose 142 H Calcium 9.5 Phosphorus 4.0 Magnesium 2.4 Transferrin 295 Ferritin 40.5 Albumin 2.8 L PTH Intact 07/13/21 08:29 WBC RBC Hgb Hct MCV MCH MCHC RDW Std Deviation RDW Coeff of Jeff Plt Count MPV Sodium Potassium Chloride Carbon Dioxide Anion Gap BUN Creatinine Est Cr Clr Drug Dosing Est GFR ( Amer) Est GFR (Non-Af Amer) BUN/Creatinine Ratio Glucose POC Glucose Calcium Phosphorus Magnesium Transferrin Ferritin Albumin PTH Intact 104.8 H PG Care Time/CCT Total # of Minutes Spent Total Time Spent with Patient: Total time spent is greater than 50% in coordination of care (as documented) at patient's floor/unit and/or counseling patient: Coding Level of Care Code 79122 Subseq Hosp Care Lvl 2 Diagnoses Hypervolemia due to congestive heart failure E87.70; I50.9 Acute on chronic renal insufficiency N28.9; N18.9 Bilateral edema of lower extremity R60.0 Ischemic cardiomyopathy I25.5 Gout M10.9 Atrial fibrillation I48.19 Atrial fibrillation type: persistent (not longstanding) CAD S/P percutaneous coronary angioplasty I25.10; Z98.61 Wound of lower extremity S81.809A (1) Atrial fibrillation Atrial fibrillation type: persistent (not longstanding) Qualified Code(s): I48.19 - Other persistent atrial fibrillation
--- NOTE | 2021-07-13 17:05 | Cardiology Progress Note ---
Date of Service July 13, 2021 Assessment & Plan (1) Acute systolic heart failure: Plan: 2. Multivessel CAD 3. Paroxysmal atrial fibrillation 4. Acute on chronic renal insufficiency 5. Bilateral venous ulcers, suspected CVI/edema 6. Failure to thrive Responding to twice daily Bumex. Negative more than 1 L yesterday. Renal function improving. Electrolytes stable. Agree with continued Bumex 4 mg twice daily Goal diuresis greater than 1 L today Continue Toprol-XL. Entresto on hold Continue current amiodarone, Eliquis. Venous reflux ultrasound as an outpatient. We will likely need rehab, long-term assistance post discharge. We will follow Admission and Anticipated Discharge Date Admission Date: July 13, 2021 Subjective Reports feeling better today than he did on admission and definitely better than several days ago. Burning leg pain improved. Denies shortness of breath or chest pain. Review of Systems Review of Systems: All systems reviewed & are unremarkable except as noted in HPI & below Physical Exam Physical Exam: General: Comfortable, in good spirits HEENT: Sclerae anicteric Lungs: Lungs clear bilaterally Cardiac: Distant heart sounds, regular, bradycardic, 2/6 holosystolic murmur heard best at the apex Vascular: 2+ radial bilaterally Abdomen: Soft, nontender Extremities: Well perfused, 2+ bilateral lower extremity edema. Wounds dressed. Neuro: Nonfocal Psych: Alert orient x3, normal affect and mood Results & Data ([facility]) Vital Signs (Past 12 Hours) Vital Signs Temp Pulse Pulse Resp BP BP Pulse Ox 07/13/21 14:31 97.7 F 65 18 100/63 95 07/13/21 10:00 97.9 F 84 20 117/72 94 07/13/21 08:55 66 106/66 07/13/21 06:57 97.3 F L 59 L 20 109/73 93 07/13/21 06:25 60 PG Care Time/CCT Total # of Minutes Spent Total Time Spent with Patient: Total time spent is greater than 50% in coordination of care (as documented) at patient's floor/unit and/or counseling patient: Coding Level of Care Code 79069 Subseq Hosp Care Lvl 3 Diagnoses Acute systolic heart failure I50.21
[2021-07-13] MEDS: traMADol HCL 50 MG TABLET PO PRN (17:08)
[2021-07-13] MEDS ORDERED: ALBUT/IPRATROP 3MG/0.5MG NEB 3 ML VIAL NEB PRN (19:44)
[2021-07-13] MEDS: AMIODARONE 200 MG TAB PO SCH (22:04)
[2021-07-13] MEDS: ALBUTEROL HFA 8 GM INHALER INH PRN (22:36)
[2021-07-13] MEDS: COLESTIPOL HCL 1 GM TAB PO SCH (22:46)
[2021-07-14] MEDS ORDERED: POLYETHYLENE (MIRALAX) 17 GM PACK PO PRN (06:06)
[2021-07-14 07:46] LABS: Hematocrit (blood only) 29.9 % (42-52); Hemoglobin 9.5 g/dL (14.0-18.0); Mean Corpuscular Hemoglobin 29.1 pg (25-34); Mean Corpuscular Hgb Conc 31.8 g/dL (32-36); Mean Corpuscular Volume 91.4 fL (80-100); Mean Platelet Volume 10.1 fL (7.4-10.4); Platelet Count 287 K/uL (130-400); RDW Coefficient of Variation 17.9 % (11.5-14.5); RDW Standard Deviation 59.3 fL (36.4-46.3); Red Blood Count 3.27 M/uL (4.7-6.1); White Blood Count 9.78 K/uL (4.8-10.8)
[2021-07-14] MEDS: allopurinoL 300 MG TAB PO SCH (08:02)
[2021-07-14] MEDS: MULTIVITAMIN TAB PO SCH (08:02)
[2021-07-14] MEDS: CEROVITE ADV FORMULA TAB PO SCH (08:03)
[2021-07-14] MEDS: CLOPIDOGREL BISULFATE 75 MG TAB PO SCH (08:04)
[2021-07-14] MEDS: METOPROLOL SUCC 50MG EXT REL TAB PO SCH ×2 (08:04→20:43)
[2021-07-14] MEDS: APIXABAN 5 MG TABLET PO SCH ×2 (08:04→20:43)
[2021-07-14] MEDS: SERTRALINE HCL 50 MG TABLET PO SCH (08:05)
[2021-07-14] MEDS: BUMETANIDE 1 MG TAB PO SCH ×2 (08:05→16:56)
[2021-07-14] MEDS: NYSTATIN POWDER 15GM BTL EXT SCH ×3 (08:09→20:44)
[2021-07-14 08:29] LABS: Albumin Level 2.8 gm/dl (3.4-5.0); BUN Creatinine Ratio 27.7 (10-20); Calcium 9.3 mg/dl (8.5-10.1); Creatinine Clr Calc Pharmacy 30.1 ml/min; Est GFR (African American) 26.9 ml/min; Est GFR (Non-African American) 23.2 ml/min; Potassium 3.3 mmol/L (3.5-5.1)
[2021-07-14] MEDS: IRON SUCROSE 200 MG in 0.9 % SODIUM CHLORIDE 100 ML IV SCH (08:37)
[2021-07-14 08:39] LABS: Phosphorus 3.4 mg/dl (2.5-4.9)
[2021-07-14] MEDS: OMEGA-3 (PURIFIED FISH OIL) 1 GM CAP PO SCH (08:43)
--- NOTE | 2021-07-14 10:11 | Nephrology Progress Note ---
Date of Service July 14, 2021 Assessment & Plan (1) Acute on chronic renal insufficiency: (2) Hypervolemia due to congestive heart failure: (3) Weakness generalized: (4) Bilateral edema of lower extremity: (5) Ischemic cardiomyopathy: Plan: 76-year-old gentleman admitted with generalized weakness and volume overload with history of congestive heart failure with both systolic and diastolic dysfunction, EF around 30%, stage III CKD secondary to cardiorenal syndrome, baseline creatinine 1.6-1.8. His dry weight around 240 and on admission he was 250 lb and reports missing on his regular Bumex dose. Noted to have CIRILO with creatinine 3.7 on admission which slightly improved to 3.1 this morning. Urinalysis and renal ultrasound otherwise unremarkable. Overall feeling better. Continues to be slightly volume overloaded but no respiratory distress. Mainly seems to have significant bilateral lower extremity edema which has been chronic. Renal function improving, with continued improvement in volume status, net negative more than 2 L.. Blood pressure stable. Decent urine output with net negative. -- Venofer 200 mg IV daily -- continue Bumex 4 mg p.o. b.i.d., aim for net negative around 0.5-1 L per day. Monitor intake and output. -- replace potassium with 40 mEq potassium chloride -- Monitor renal function and electrolytes daily while on high-dose diuretics. -- dose meds for GFR<30, left arm nephrology precaution in case he needs vascular access in future if he needs dialysis. -- Eventually he will need placement to a long-term care facility as it seems like he has been having significant difficulty with minimum chores at home and taking care of himself. Will follow Admission and Anticipated Discharge Date Admission Date: July 13, 2021 Debi Espinosa was seen and examined in his room this morning. No overnight events. Overall feeling better, appetite decent, was able to walk outside the room. Blo od pressure stable, no respiratory distress. Renal function continues to improve, potassium lower 3.3 with diuresis.. Responding to diuretics with net negative >2 L last 24 hour. Review of Systems Review of Systems: Detailed ROS was done and otherwise negative except mentioned above. Physical Exam Constitutional: WD/WN, vitals as above no acute distress Eyes: + anicteric sclerae ENMT: Ears: no hearing impairment Neck: normal visual inspection Respiratory: normal respiratory effort; no respiratory distress Auscultation: lungs clear to auscultation bilaterally Cardiovascular: Rate/Rhythm: regular rate and regular rhythm Vessels: no JVD Musculoskeletal: Bilateral lower extremity edema with superficial ulceration and weeping, in dressing Neurologic: no focal motor deficits and not confused Psychiatric: Orientation: alert and oriented x 3 Affect: euthymic affect Results & Data ([facility]) Vital Signs (Past 12 Hours) Vital Signs Temp Pulse Pulse Resp BP Pulse Ox 07/14/21 07:22 36.4 C L 73 16 112/74 90 07/14/21 04:00 36.6 C 71 20 116/73 93 07/13/21 23:00 36.8 C 68 20 116/70 92 07/13/21 22:36 64 18 91 07/13/21 22:28 63 PG Care Time/CCT Total # of Minutes Spent Total Time Spent with Patient: Total time spent is greater than 50% in coordination of care (as documented) at patient's floor/unit and/or counseling patient: Coding Level of Care Code 19495 Subseq Hosp Care Lvl 3 Diagnoses Acute on chronic renal insufficiency N28.9; N18.9 Hypervolemia due to congestive heart failure E87.70; I50.9 Weakness generalized R53.1 Bilateral edema of lower extremity R60.0 Ischemic cardiomyopathy I25.5
[2021-07-14] MEDS ORDERED: POTASSIUM CHLORIDE CRTAB 20 MEQ TABCR PO STA (11:46)
--- NOTE | 2021-07-14 11:56 | Hospitalist Progress Note ---
Date of Service July 14, 2021 Assessment & Plan (1) Hypervolemia due to congestive heart failure: Plan: He is responding to diuresis making good urine Will continue to diurese with Bumex 4mg Monitor I/O, daily weights Cardiology on consult, appreciate recs (2) Acute on chronic renal insufficiency: Plan: His renal function continues to improve Cr 2.56 today Nephrology on consult, appreciate input We will avoid nephrotoxic's (3) Bilateral edema of lower extremity: Plan: Some improvement in edema Bilateral edema is mostly due to venous insufficiency We will encourage Steven wraps Also encourage elevation of legs when he is in bed (4) Ischemic cardiomyopathy: Plan: Last ejection fraction 30 to 35%. Patient had refused ICD in the past Continue home medications. Cardiology on consult. (5) Gout: Plan: On allopurinol at home, continue. (6) Atrial fibrillation: Plan: Currently in sinus rhythm Continue amiodarone/metoprolol Continue Eliquis for anticoagulation (7) CAD S/P percutaneous coronary angioplasty: Plan: Continue Plavix, Eliquis, Metoprolol, not on statin due to Myalgias. (8) Wound of lower extremity: Plan: Improving Continue wound care Plan: Anticipate discharge to a rehab facility when medically stable Admission and Anticipated Discharge Date Admission Date: July 13, 2021 Subjective Patient seen and examined this morning, in high spirits, participating in physical therapy, feels overall better Review of Systems Review of Systems: All systems reviewed are negative, apart from the ones contained in the history. Physical Exam Physical Exam: The patient is awake, alert and oriented 3, well developed and well nourished, normocephalic and atraumatic, lying in bed and in no acute distress. HEENT--PERRL, EOMI, mucous membranes and oropharynx mildly dry Neck--supple. No JVD. No bruits. Thyroid normal, trachea midline, no adenopathy. Heart--normal S1 and S2. No murmurs, rubs or gallops. Lungs--clear bilaterally, no respiratory distress, no accessory muscle use. Abdomen--normal bowel sounds and soft. Mild epigastric and left sided abdominal pain Extremities--bilateral leg edema, signs of chronic venous stasis Dermatologic--normal skin turgor, normal color, no abnormal lymph nodes, no rash. Neurologic--cranial nerves II through XII grossly intact. Rheumatologic--normal range of motion. Psychiatric--normal affect. Results & Data Results & Data ([facility]) Vital Signs (Past 12 Hours) Vital Signs Temp Pulse Resp BP Pulse Ox 07/14/21 11:20 97.3 F L 72 18 138/70 90 07/14/21 07:22 97.5 F L 73 16 112/74 90 07/14/21 04:00 97.9 F 71 20 116/73 93 Laboratory Results Laboratory Results - last 24 hr 07/14/21 07/14/21 07/14/21 07:08 07:08 07:08 WBC 9.78 RBC 3.27 L Hgb 9.5 L Hct 29.9 L MCV 91.4 MCH 29.1 MCHC 31.8 L RDW Std Deviation 59.3 H RDW Coeff of Jeff 17.9 H Plt Count 287 MPV 10.1 Sodium 139 Cancelled Potassium 3.3 L Cancelled Chloride 104 Cancelled Carbon Dioxide 26 Cancelled Anion Gap 10.0 Cancelled BUN 71 H Cancelled Creatinine 2.56 H Cancelled Est Cr Clr Drug Dosing 30.1 Cancelled Est GFR ( Amer) 26.9 Cancelled Est GFR (Non-Af Amer) 23.2 Cancelled BUN/Creatinine Ratio 27.7 H Cancelled Glucose 125 H Cancelled Calcium 9.3 Cancelled Phosphorus 3.4 Albumin 2.8 L PG Care Time/CCT Total # of Minutes Spent Total Time Spent with Patient: Total time spent is greater than 50% in coordination of care (as documented) at patient's floor/unit and/or counseling patient: Coding Level of Care Code 89895 Subseq Hosp Care Lvl 2 Diagnoses Hypervolemia due to congestive heart failure E87.70; I50.9 Acute on chronic renal insufficiency N28.9; N18.9 Bilateral edema of lower extremity R60.0 Ischemic cardiomyopathy I25.5 Gout M10.9 Atrial fibrillation I48.19 Atrial fibrillation type: persistent (not longstanding) CAD S/P percutaneous coronary angioplasty I25.10; Z98.61 Wound of lower extremity S81.809A (1) Atrial fibrillation Atrial fibrillation type: persistent (not longstanding) Qualified Code(s): I48.19 - Other persistent atrial fibrillation
[2021-07-14] MEDS: AMIODARONE 200 MG TAB PO SCH (21:18)
[2021-07-14] MEDS: COLESTIPOL HCL 1 GM TAB PO SCH (22:26)
[2021-07-15 07:31] LABS: Hematocrit (blood only) 30.9 % (42-52); Hemoglobin 9.9 g/dL (14.0-18.0); Mean Corpuscular Hemoglobin 29.5 pg (25-34); Mean Platelet Volume 10.2 fL (7.4-10.4); Platelet Count 320 K/uL (130-400); RDW Coefficient of Variation 18.2 % (11.5-14.5); RDW Standard Deviation 60.1 fL (36.4-46.3); Red Blood Count 3.36 M/uL (4.7-6.1); White Blood Count 9.42 K/uL (4.8-10.8)
[2021-07-15 08:03] LABS: Albumin Level 2.9 gm/dl (3.4-5.0); BUN Creatinine Ratio 28.2 (10-20); Calcium 9.4 mg/dl (8.5-10.1); Creatinine Clr Calc Pharmacy 32.6 ml/min; Est GFR (African American) 30.6 ml/min; Est GFR (Non-African American) 26.4 ml/min; Potassium 3.3 mmol/L (3.5-5.1)
[2021-07-15] MEDS: SERTRALINE HCL 50 MG TABLET PO SCH (08:26)
[2021-07-15] MEDS: OMEGA-3 (PURIFIED FISH OIL) 1 GM CAP PO SCH (08:27)
[2021-07-15] MEDS: MULTIVITAMIN TAB PO SCH (08:27)
[2021-07-15] MEDS: APIXABAN 5 MG TABLET PO SCH ×2 (08:27→22:01)
[2021-07-15] MEDS: METOPROLOL SUCC 50MG EXT REL TAB PO SCH ×2 (08:27→22:01)
[2021-07-15] MEDS: CLOPIDOGREL BISULFATE 75 MG TAB PO SCH (08:28)
[2021-07-15] MEDS: BUMETANIDE 1 MG TAB PO SCH ×2 (08:28→16:23)
[2021-07-15] MEDS: allopurinoL 300 MG TAB PO SCH (08:28)
[2021-07-15] MEDS: NYSTATIN POWDER 15GM BTL EXT SCH ×3 (08:29→22:00)
[2021-07-15] MEDS: IRON SUCROSE 200 MG in 0.9 % SODIUM CHLORIDE 100 ML IV SCH (08:32)
[2021-07-15] MEDS ORDERED: POTASSIUM CHLORIDE CRTAB 20 MEQ TABCR PO STA (11:32)
--- NOTE | 2021-07-15 11:50 | Hospitalist Progress Note ---
Date of Service July 15, 2021 Assessment & Plan (1) Hypervolemia due to congestive heart failure: Plan: He is responding to diuresis making good urine Will continue to diurese with Bumex 4mg Monitor I/O, daily weights Cardiology on consult, appreciate recs (2) Acute on chronic renal insufficiency: Plan: His renal function continues to improve Cr 2.30 today Nephrology on consult, appreciate input We will avoid nephrotoxic's (3) Bilateral edema of lower extremity: Plan: Some improvement in edema Bilateral edema is mostly due to venous insufficiency We will encourage Steven wraps Also encourage elevation of legs when he is in bed (4) Ischemic cardiomyopathy: Plan: Last ejection fraction 30 to 35%. Patient had refused ICD in the past Continue home medications. Cardiology on consult. (5) Gout: Plan: On allopurinol at home, continue. (6) Atrial fibrillation: Plan: Currently in sinus rhythm Continue amiodarone/metoprolol Continue Eliquis for anticoagulation (7) CAD S/P percutaneous coronary angioplasty: Plan: Continue Plavix, Eliquis, Metoprolol, not on statin due to Myalgias. (8) Wound of lower extremity: Plan: Improving Continue wound care (9) Ear fullness: Plan: Patient complains of some fullness in the ear No ear discharge on exam Will ask him to follow up with ENT as outpatient Plan: Anticipate discharge to a rehab facility when medically stable Admission and Anticipated Discharge Date Admission Date: July 13, 2021 Subjective Patient seen and examined this morning, sitting up in the chair, complains of fullness in the ear and cough Review of Systems Review of Systems: All systems reviewed are negative, apart from the ones contained in the history. Physical Exam Physical Exam: The patient is awake, alert and oriented 3, well developed and well nourished, normocephalic and atraumatic, lying in bed and in no acute distress. HEENT--PERRL, EOMI, mucous membranes and oropharynx mildly dry Neck--supple. No JVD. No bruits. Thyroid normal, trachea midline, no adenopathy. Heart--normal S1 and S2. No murmurs, rubs or gallops. Lungs--clear bilaterally, no respiratory distress, no accessory muscle use. Abdomen--normal bowel sounds and soft. Mild epigastric and left sided abdominal pain Extremities--bilateral leg edema, signs of chronic venous stasis Dermatologic--normal skin turgor, normal color, no abnormal lymph nodes, no rash. Neurologic--cranial nerves II through XII grossly intact. Rheumatologic--normal range of motion. Psychiatric--normal affect. Results & Data Results & Data ([facility]) Vital Signs (Past 12 Hours) Vital Signs Temp Pulse Pulse Pulse Resp BP BP 07/15/21 11:31 97.5 F L 71 18 100/62 07/15/21 08:00 73 07/15/21 07:26 97.9 F 74 16 108/69 07/15/21 07:20 97.5 F L 67 18 132/70 07/15/21 05:07 72 07/15/21 04:00 97.5 F L 76 18 105/63 Pulse Ox 07/15/21 11:31 92 07/15/21 08:00 07/15/21 07:26 91 07/15/21 07:20 96 07/15/21 05:07 07/15/21 04:00 91 Laboratory Results Laboratory Results - last 24 hr 07/15/21 07/15/21 06:56 06:56 WBC 9.42 RBC 3.36 L Hgb 9.9 L Hct 30.9 L MCV 92.0 MCH 29.5 MCHC 32.0 RDW Std Deviation 60.1 H RDW Coeff of Jeff 18.2 H Plt Count 320 MPV 10.2 Sodium 139 Potassium 3.3 L Chloride 104 Carbon Dioxide 29 Anion Gap 6.0 BUN 65 H Creatinine 2.30 H Est Cr Clr Drug Dosing 32.6 Est GFR ( Amer) 30.6 Est GFR (Non-Af Amer) 26.4 BUN/Creatinine Ratio 28.2 H Glucose 123 H Calcium 9.4 Phosphorus 3.0 Albumin 2.9 L PG Care Time/CCT Total # of Minutes Spent Total Time Spent with Patient: Total time spent is greater than 50% in coordination of care (as documented) at patient's floor/unit and/or counseling patient: Coding Level of Care Code 80213 Subseq Hosp Care Lvl 2 Diagnoses Hypervolemia due to congestive heart failure E87.70; I50.9 Acute on chronic renal insufficiency N28.9; N18.9 Bilateral edema of lower extremity R60.0 Ischemic cardiomyopathy I25.5 Gout M10.9 Atrial fibrillation I48.19 Atrial fibrillation type: persistent (not longstanding) CAD S/P percutaneous coronary angioplasty I25.10; Z98.61 Wound of lower extremity S81.809A Ear fullness H93.8X9 (1) Atrial fibrillation Atrial fibrillation type: persistent (not longstanding) Qualified Code(s): I48.19 - Other persistent atrial fibrillation
--- NOTE | 2021-07-15 12:34 | Nephrology Progress Note ---
Date of Service July 15, 2021 Assessment & Plan (1) Acute on chronic renal insufficiency: (2) Hypervolemia due to congestive heart failure: (3) Weakness generalized: (4) Bilateral edema of lower extremity: (5) Ischemic cardiomyopathy: Plan: CIRILO with CRS. Creatinine improving. CKD at baseline noted. Non-oliguric. Electrolytes acceptable. Adequate UOP in response to Bumex. Remains markedly volume overload. BP acceptable. Continue current therapy. Bumex 4 PO BID. Goal is at lest 1-2 L negative per day. Venofer 200 mg IV daily for anemia. Document I/O's and daily weight. Repeat metabolic profile tomorrow AM. Admission and Anticipated Discharge Date Admission Date: July 13, 2021 Subjective No acute events overnight. Moisés feels well this AM. Edema improving. Review of Systems Review of Systems: All systems reviewed & are unremarkable except as noted in HPI & below Physical Exam Constitutional: well developed; no acute distress Eyes: no scleral abnormality and no corneal abnormality ENMT: Mouth: no oral mucosal abnormality and oral mucous membranes not dry Neck: normal visual inspection and trachea midline Respiratory: normal respiratory effort Auscultation: + rales Cardiovascular: Rate/Rhythm: regular rate Heart Sounds: normal S1 and normal S2 Extremities: + edema Musculoskeletal: Extremities: no cyanosis and no clubbing Skin: normal turgor; no lesions Neurologic: Motor/Sensory: no tremor and no asterixis Psychiatric: Orientation: alert and oriented x 3 Results & Data ([facility]) Vital Signs (Past 12 Hours) Vital Signs Temp Pulse Pulse Pulse Resp BP BP 07/15/21 11:31 36.4 C L 71 18 100/62 07/15/21 08:00 73 07/15/21 07:26 36.6 C 74 16 108/69 07/15/21 07:20 36.4 C L 67 18 132/70 07/15/21 05:07 72 07/15/21 04:00 36.4 C L 76 18 105/63 Pulse Ox 07/15/21 11:31 92 07/15/21 08:00 07/15/21 07:26 91 07/15/21 07:20 96 07/15/21 05:07 07/15/21 04:00 91 Laboratory Results Laboratory Results - last 24 hr 07/15/21 07/15/21 06:56 06:56 WBC 9.42 RBC 3.36 L Hgb 9.9 L Hct 30.9 L MCV 92.0 MCH 29.5 MCHC 32.0 RDW Std Deviation 60.1 H RDW Coeff of Jeff 18.2 H Plt Count 320 MPV 10.2 Sodium 139 Potassium 3.3 L Chloride 104 Carbon Dioxide 29 Anion Gap 6.0 BUN 65 H Creatinine 2.30 H Est Cr Clr Drug Dosing 32.6 Est GFR ( Amer) 30.6 Est GFR (Non-Af Amer) 26.4 BUN/Creatinine Ratio 28.2 H Glucose 123 H Calcium 9.4 Phosphorus 3.0 Albumin 2.9 L PG Care Time/CCT Total # of Minutes Spent Total Time Spent with Patient: Total time spent is greater than 50% in coordination of care (as documented) at patient's floor/unit and/or counseling patient: Coding Level of Care Code 18446 Subseq Hosp Care Lvl 3 Diagnoses Acute on chronic renal insufficiency N28.9; N18.9 Hypervolemia due to congestive heart failure E87.70; I50.9 Weakness generalized R53.1 Bilateral edema of lower extremity R60.0 Ischemic cardiomyopathy I25.5
[2021-07-15] MEDS: ALBUTEROL HFA 8 GM INHALER INH PRN (18:46)
[2021-07-15] MEDS: AMIODARONE 200 MG TAB PO SCH (22:01)
[2021-07-15] MEDS: COLESTIPOL HCL 1 GM TAB PO SCH (22:57)
[2021-07-16 08:24] LABS: BUN Creatinine Ratio 26.5 (10-20); Calcium 9.8 mg/dl (8.5-10.1); Creatinine Clr Calc Pharmacy 34.1 ml/min; Est GFR (African American) 32.3 ml/min; Est GFR (Non-African American) 27.9 ml/min; Potassium 3.8 mmol/L (3.5-5.1)
[2021-07-16] MEDS: MULTIVITAMIN TAB PO SCH (09:19)
[2021-07-16] MEDS: OMEGA-3 (PURIFIED FISH OIL) 1 GM CAP PO SCH (09:19)
[2021-07-16] MEDS: CLOPIDOGREL BISULFATE 75 MG TAB PO SCH (09:20)
[2021-07-16] MEDS: SERTRALINE HCL 50 MG TABLET PO SCH (09:20)
[2021-07-16] MEDS: APIXABAN 5 MG TABLET PO SCH ×2 (09:20→21:05)
[2021-07-16] MEDS: BUMETANIDE 1 MG TAB PO SCH ×2 (09:21→16:52)
[2021-07-16] MEDS: allopurinoL 300 MG TAB PO SCH (09:21)
[2021-07-16] MEDS: METOPROLOL SUCC 50MG EXT REL TAB PO SCH ×2 (09:22→21:06)
[2021-07-16] MEDS: NYSTATIN POWDER 15GM BTL EXT SCH ×3 (09:33→21:05)
[2021-07-16] MEDS: IRON SUCROSE 200 MG in 0.9 % SODIUM CHLORIDE 100 ML IV SCH (09:33)
--- NOTE | 2021-07-16 10:12 | Nephrology Progress Note ---
Date of Service July 16, 2021 Assessment & Plan (1) Acute on chronic renal insufficiency: (2) Hypervolemia due to congestive heart failure: (3) Bilateral edema of lower extremity: (4) Ischemic cardiomyopathy: Plan: CIRILO with CRS. Creatinine stable at 2.2 mg/dL. Baseline kidney function 1.6-1.9 mg/dL. Non-oliguric. Electrolytes acceptable. Adequate UOP in response to Bumex. Remains markedly volume overload. BP acceptable. Continue current therapy. Bumex 4 PO BID. Goal is at lest 1-2 L negative per day. Venofer 200 mg IV daily for anemia. Day 11/04. Repeat H/H on 07/18. Document I/O's and daily weight. Repeat metabolic profile tomorrow AM. Medications appropriately dosed for kidney function. Admission and Anticipated Discharge Date Admission Date: July 13, 2021 Subjective No acute events overnight. Moisés feels well this AM. Edema improving. Review of Systems Review of Systems: All systems reviewed & are unremarkable except as noted in HPI & below Physical Exam Constitutional: well developed; no acute distress Eyes: no scleral abnormality and no corneal abnormality ENMT: Mouth: no oral mucosal abnormality and oral mucous membranes not dry Neck: normal visual inspection and trachea midline Respiratory: normal respiratory effort Auscultation: + rales Cardiovascular: Rate/Rhythm: regular rate Heart Sounds: normal S1 and normal S2 Extremities: + edema Musculoskeletal: Extremities: no cyanosis and no clubbing Skin: normal turgor; no lesions Neurologic: Motor/Sensory: no tremor and no asterixis Psychiatric: Orientation: alert and oriented x 3 Results & Data ([facility]) Vital Signs (Past 12 Hours) Vital Signs Temp Pulse Pulse Pulse Resp BP BP 07/16/21 07:52 07/16/21 07:29 36.6 C 76 18 107/68 07/16/21 07:12 75 07/16/21 04:26 36.6 C 76 18 104/70 07/15/21 22:23 73 Pulse Ox 07/16/21 07:52 90 07/16/21 07:29 88 L 07/16/21 07:12 07/16/21 04:26 91 07/15/21 22:23 PG Care Time/CCT Total # of Minutes Spent Total Time Spent with Patient: Total time spent is greater than 50% in coordination of care (as documented) at patient's floor/unit and/or counseling patient: Coding Level of Care Code 76732 Subseq Hosp Care Lvl 3 Diagnoses Acute on chronic renal insufficiency N28.9; N18.9 Hypervolemia due to congestive heart failure E87.70; I50.9 Bilateral edema of lower extremity R60.0 Ischemic cardiomyopathy I25.5
--- NOTE | 2021-07-16 10:25 | Hospitalist Progress Note ---
Date of Service July 16, 2021 Assessment & Plan (1) Hypervolemia due to congestive heart failure: Plan: He is responding to diuresis making good urine, he has lost about 13 pounds since admission and negative 8L in fluid balance Will continue to diurese with Bumex 4mg Monitor I/O, daily weights Cardiology on consult, appreciate recs (2) Acute on chronic renal insufficiency: Plan: His renal function continues to improve Cr 2.20 today Nephrology on consult, appreciate input We will avoid nephrotoxic's (3) Bilateral edema of lower extremity: Plan: A lot of improvement in edema Bilateral edema is mostly due to venous insufficiency We will encourage Steven wraps Also encourage elevation of legs when he is in bed (4) Ischemic cardiomyopathy: Plan: Last ejection fraction 30 to 35%. Patient had refused ICD in the past Continue home medications. Cardiology on consult. (5) Gout: Plan: On allopurinol at home, continue. (6) Atrial fibrillation: Plan: Currently in sinus rhythm Continue amiodarone/metoprolol Continue Eliquis for anticoagulation (7) CAD S/P percutaneous coronary angioplasty: Plan: Continue Plavix, Eliquis, Metoprolol, not on statin due to Myalgias. (8) Wound of lower extremity: Plan: Improving Continue wound care (9) Ear fullness: Plan: Patient complains of some fullness in the ear No ear discharge on exam Will ask him to follow up with ENT as outpatient Plan: Anticipate discharge to a rehab facility when medically stable Admission and Anticipated Discharge Date Admission Date: July 13, 2021 Subjective No acute events overnight. Moisés feels well this AM. Edema improving. In high spirits Review of Systems Review of Systems: All systems reviewed are negative, apart from the ones contained in the history. Physical Exam Physical Exam: The patient is awake, alert and oriented 3, well developed and well nourished, normocephalic and atraumatic, lying in bed and in no acute distress. HEENT--PERRL, EOMI, mucous membranes and oropharynx mildly dry Neck--supple. No JVD. No bruits. Thyroid normal, trachea midline, no adenopathy. Heart--normal S1 and S2. No murmurs, rubs or gallops. Lungs--clear bilaterally, no respiratory distress, no accessory muscle use. Abdomen--normal bowel sounds and soft. Mild epigastric and left sided abdominal pain Extremities--bilateral leg edema, signs of chronic venous stasis Dermatologic--normal skin turgor, normal color, no abnormal lymph nodes, no rash. Neurologic--cranial nerves II through XII grossly intact. Rheumatologic--normal range of motion. Psychiatric--normal affect. Results & Data Results & Data ([facility]) Vital Signs (Past 12 Hours) Vital Signs Temp Pulse Pulse Pulse Resp BP BP 07/16/21 07:52 07/16/21 07:29 97.9 F 76 18 107/68 07/16/21 07:12 75 07/16/21 04:26 97.9 F 76 18 104/70 Pulse Ox 07/16/21 07:52 90 07/16/21 07:29 88 L 07/16/21 07:12 07/16/21 04:26 91 Laboratory Results Laboratory Results - last 24 hr 07/16/21 07:30 Sodium 142 Potassium 3.8 D Chloride 103 Carbon Dioxide 29 Anion Gap 10.0 BUN 58 H Creatinine 2.20 H Est Cr Clr Drug Dosing 34.1 Est GFR ( Amer) 32.3 Est GFR (Non-Af Amer) 27.9 BUN/Creatinine Ratio 26.5 H Glucose 135 H Calcium 9.8 PG Care Time/CCT Total # of Minutes Spent Total Time Spent with Patient: Total time spent is greater than 50% in coordination of care (as documented) at patient's floor/unit and/or counseling patient: Coding Level of Care Code 13528 Subseq Hosp Care Lvl 2 Diagnoses Hypervolemia due to congestive heart failure E87.70; I50.9 Acute on chronic renal insufficiency N28.9; N18.9 Bilateral edema of lower extremity R60.0 Ischemic cardiomyopathy I25.5 Gout M10.9 Atrial fibrillation I48.19 Atrial fibrillation type: persistent (not longstanding) CAD S/P percutaneous coronary angioplasty I25.10; Z98.61 Wound of lower extremity S81.809A Ear fullness H93.8X9 (1) Atrial fibrillation Atrial fibrillation type: persistent (not longstanding) Qualified Code(s): I48.19 - Other persistent atrial fibrillation
[2021-07-16] MEDS: ALBUTEROL HFA 8 GM INHALER INH PRN (19:30)
[2021-07-16] MEDS: COLESTIPOL HCL 1 GM TAB PO SCH (20:00)
[2021-07-16] MEDS: AMIODARONE 200 MG TAB PO SCH (21:05)
[2021-07-17] MEDS ORDERED: SALINE NASAL 225 SPRAYS, GENTAMICIN SULFATE 60 MG, BARCODE IDENTIFIER 0 EA PRN (04:49)
[2021-07-17] MEDS ORDERED: SODIUM CHLORIDE 0.65% NA SOLN 45 ML (OCEAN) ONE (04:56)
[2021-07-17] MEDS ORDERED: SODIUM CHLORIDE 0.65% NA SOLN 45 ML (OCEAN) PRN (05:02)
[2021-07-17 07:31] LABS: BUN Creatinine Ratio 25.9 (10-20); Calcium 9.6 mg/dl (8.5-10.1); Creatinine Clr Calc Pharmacy 35.2 ml/min; Est GFR (African American) 33.6 ml/min; Potassium 3.1 mmol/L (3.5-5.1)
[2021-07-17] MEDS: IRON SUCROSE 200 MG in 0.9 % SODIUM CHLORIDE 100 ML IV SCH (08:21)
[2021-07-17] MEDS: BUMETANIDE 1 MG TAB PO SCH ×2 (08:21→17:16)
[2021-07-17] MEDS: CLOPIDOGREL BISULFATE 75 MG TAB PO SCH (08:21)
[2021-07-17] MEDS: APIXABAN 5 MG TABLET PO SCH ×2 (08:21→21:39)
[2021-07-17] MEDS: OMEGA-3 (PURIFIED FISH OIL) 1 GM CAP PO SCH (08:21)
[2021-07-17] MEDS: METOPROLOL SUCC 50MG EXT REL TAB PO SCH ×2 (08:22→21:39)
[2021-07-17] MEDS: SERTRALINE HCL 50 MG TABLET PO SCH (08:22)
[2021-07-17] MEDS: MULTIVITAMIN TAB PO SCH (08:22)
[2021-07-17] MEDS: NYSTATIN POWDER 15GM BTL EXT SCH ×3 (08:22→21:41)
[2021-07-17] MEDS ORDERED: POTASSIUM CHLORIDE CRTAB 20 MEQ TABCR PO STA (08:45)
[2021-07-17] MEDS: allopurinoL 300 MG TAB PO SCH (08:51)
--- NOTE | 2021-07-17 09:57 | Nephrology Progress Note ---
Date of Service July 17, 2021 Assessment & Plan (1) Acute on chronic renal insufficiency: Plan: CIRILO with CRS. Creatinine stable at 2.2 mg/dL. Baseline kidney function 1.6-1.9 mg/dL. Non-oliguric. Electrolytes acceptable. Adequate UOP in response to Bumex. Medications appropriate for kidney dysfunction. KCl 40 mEq daily added today. Repeat metabolic profile + Mg tomorrow AM. (2) Hypervolemia due to congestive heart failure: Plan: Remains markedly volume overload. BP acceptable. Continue current therapy. Bumex 4 PO BID. Goal is at lest 1-2 L negative per day. (3) Bilateral edema of lower extremity: Plan: Compression wraps and feet elevation. (4) Ischemic cardiomyopathy: Plan: Plan of care reviewed with cardiology this AM. Document I/O's and daily weight. Entresto held due to acute kidney dysfunction but may consider restarting in next couple days if function stable. (5) Anemia: Plan: Venofer 200 mg IV daily for anemia. Day 12/05. Repeat H/H tomorrow. Admission and Anticipated Discharge Date Admission Date: July 13, 2021 Subjective No acute events overnight. Moisés feels well this AM. Edema improving. I reviewed the plan of care with Jaye Kennedy PA-C this AM Review of Systems Review of Systems: All systems reviewed & are unremarkable except as noted in HPI & below Physical Exam Constitutional: well developed; no acute distress Eyes: no scleral abnormality and no corneal abnormality ENMT: Mouth: no oral mucosal abnormality and oral mucous membranes not dry Neck: normal visual inspection and trachea midline Respiratory: normal respiratory effort Auscultation: + rales Cardiovascular: Rate/Rhythm: regular rate Heart Sounds: normal S1 and normal S2 Extremities: + edema Musculoskeletal: Extremities: no cyanosis and no clubbing Skin: normal turgor; no lesions Neurologic: Motor/Sensory: no tremor and no asterixis Psychiatric: Orientation: alert and oriented x 3 Results & Data ([facility]) Vital Signs (Past 12 Hours) Vital Signs Temp Pulse Pulse Pulse Resp BP Pulse Ox 07/17/21 08:00 36.3 C L 74 18 120/82 91 07/17/21 06:39 75 07/17/21 04:05 36.4 C L 72 18 117/77 92 07/17/21 00:00 36.4 C L 74 18 104/62 92 11/14/21 22:18 75 Laboratory Results Laboratory Results - last 24 hr 07/17/21 06:17 Sodium 140 Potassium 3.1 L D Chloride 101 Carbon Dioxide 30 Anion Gap 9.0 BUN 55 H Creatinine 2.13 H Est Cr Clr Drug Dosing 35.2 Est GFR ( Amer) 33.6 Est GFR (Non-Af Amer) 29.0 BUN/Creatinine Ratio 25.9 H Glucose 137 H Calcium 9.6 PG Care Time/CCT Total # of Minutes Spent Total Time Spent with Patient: Total time spent is greater than 50% in coordination of care (as documented) at patient's floor/unit and/or counseling patient: Coding Level of Care Code 92258 Subseq Hosp Care Lvl 3 Diagnoses Acute on chronic renal insufficiency N28.9; N18.9 Hypervolemia due to congestive heart failure E87.70; I50.9 Bilateral edema of lower extremity R60.0 Ischemic cardiomyopathy I25.5 Anemia D64.9
[2021-07-17] MEDS: traMADol HCL 50 MG TABLET PO PRN (11:53)
[2021-07-17] MEDS ORDERED: POTASSIUM CHLORIDE CRTAB 20 MEQ TABCR PO ONE ×2 (12:00→15:00)
--- NOTE | 2021-07-17 19:35 | Hospitalist Progress Note ---
Date of Service July 17, 2021 Assessment & Plan (1) Acute on chronic combined systolic and diastolic CHF (congestive heart failure): Plan: appreciate cardiology & nephrology assistance cont bumex 4mg BID in a controlled medical setting he diureses well and achieves euvolemia fairly well at home he decompensates - due to noncompliance with meds and/or diet? other? cont metoprolol resume low-dose Entresto if renal function will allow and BP will allow? currently on hold (2) Acute kidney injury: Plan: 2nd to #1 - improved with diuresis & time (3) Chronic renal failure, stage 3b: Plan: baseline Cr about 1.8 daily BMP (4) Anemia: Plan: appreciate nephrology management with IV venofer (5) Fall: Plan: check b12 level am has had falls at home then had fall again today not orthostatic or dizzy no vertigo doesn't have known h/o neuropathy cont PT/OT agree w/ patient that he needs higher level of care at discharge (6) Chest pain: Plan: chronic has known CAD, but symptoms not c/w ischemia (7) Atrial fibrillation: Plan: remains in NSR cont amiodarone cont eliquis cautiously cont beta ruby (8) Ischemic cardiomyopathy: Plan: EF 30-35% (9) Hx of myocardial infarction: (10) History of pulmonary embolus (PE): Plan: eliquis BID (11) Hypokalemia: Plan: replace bmp am (12) DVT prophylaxis: Plan: eliquis BID Plan: dispo planning Admission and Anticipated Discharge Date Admission Date: July 13, 2021 Subjective pt had a somewhat controlled fall earlier today he was standing near the chair trying to manipulate his bedside table (his meal had arrived) simply lost his footing and balance and fell to the ground denies hitting his head denies ANY Injury denies any pain in any location breathing is about baseline - still with LOREDO with any activity LE edema is improved, however he admits that he likely cannot live alone in his condo any longer has been in touch with his nephew (POA) regarding his disposition tele overnight wnl Review of Systems Review of Systems: gen - no fevers; good appetite CV - intermittent chest discomfort - CHRONIC pulm - no cough GI - no pain or nausea Physical Exam Physical Exam: gen - NAD head - no signs of trauma musculo - no evidence of trauma to any limb; passive flexion of b/l hips does not cause any pain; passive movement of b/l arms does not cause pain skin - no ecchymoses or trauma neck - no JVD sitting upright at 90 degrees mouth - MMM heart - RRR, s1 s2 lungs - bibasilar dry rales abd - soft NT ND BS+ ext - 3+ edema of b/l legs skin - venous stasis changes b/l shins Results & Data Results & Data ([facility]) Vital Signs (Past 12 Hours) Vital Signs Temp Pulse Pulse Pulse Resp BP Pulse Ox 07/17/21 15:38 36.5 C 70 18 109/61 95 07/17/21 15:11 72 07/17/21 13:06 36.2 C L 78 20 113/66 07/17/21 11:34 36.6 C 78 18 122/68 91 07/17/21 08:00 36.3 C L 74 18 120/82 91 Laboratory Results Laboratory Results - last 24 hr 07/17/21 06:17 Sodium 140 Potassium 3.1 L D Chloride 101 Carbon Dioxide 30 Anion Gap 9.0 BUN 55 H Creatinine 2.13 H Est Cr Clr Drug Dosing 35.2 Est GFR ( Amer) 33.6 Est GFR (Non-Af Amer) 29.0 BUN/Creatinine Ratio 25.9 H Glucose 137 H Calcium 9.6 PG Care Time/CCT Total # of Minutes Spent Total Time Spent with Patient: Total time spent is greater than 50% in coordination of care (as documented) at patient's floor/unit and/or counseling patient: Coding Level of Care Code 90139 Subseq Hosp Care Lvl 3 Diagnoses Acute on chronic combined systolic and diastolic CHF (congestive heart failure) I50.43 Acute kidney injury N17.9 Chronic renal failure, stage 3b N18.32 Anemia D64.9 Fall W19.XXXA Chest pain R07.9 Atrial fibrillation I48.19 Atrial fibrillation type: persistent (not longstanding) Ischemic cardiomyopathy I25.5 Hx of myocardial infarction I25.2 History of pulmonary embolus (PE) Z86.711 Hypokalemia E87.6 DVT prophylaxis Z29.9 (1) Atrial fibrillation Atrial fibrillation type: persistent (not longstanding) Qualified Code(s): I48.19 - Other persistent atrial fibrillation
[2021-07-17] MEDS: COLESTIPOL HCL 1 GM TAB PO SCH (21:39)
[2021-07-17] MEDS: AMIODARONE 200 MG TAB PO SCH (21:40)
[2021-07-18 07:35] LABS: Hematocrit (blood only) 29.2 % (42-52); Hemoglobin 9.1 g/dL (14.0-18.0); Mean Corpuscular Hemoglobin 29.3 pg (25-34); Mean Corpuscular Hgb Conc 31.2 g/dL (32-36); Mean Corpuscular Volume 93.9 fL (80-100); Mean Platelet Volume 10.4 fL (7.4-10.4); Platelet Count 315 K/uL (130-400); RDW Coefficient of Variation 19.6 % (11.5-14.5); RDW Standard Deviation 62.9 fL (36.4-46.3); Red Blood Count 3.11 M/uL (4.7-6.1); White Blood Count 9.68 K/uL (4.8-10.8)
[2021-07-18] MEDS: allopurinoL 300 MG TAB PO SCH (07:57)
[2021-07-18] MEDS: APIXABAN 5 MG TABLET PO SCH ×2 (07:57→21:55)
[2021-07-18] MEDS: BUMETANIDE 1 MG TAB PO SCH ×2 (07:57→17:06)
[2021-07-18] MEDS: OMEGA-3 (PURIFIED FISH OIL) 1 GM CAP PO SCH (07:58)
[2021-07-18] MEDS: CLOPIDOGREL BISULFATE 75 MG TAB PO SCH (07:58)
[2021-07-18] MEDS: METOPROLOL SUCC 50MG EXT REL TAB PO SCH ×2 (07:58→21:55)
[2021-07-18] MEDS: IRON SUCROSE 200 MG in 0.9 % SODIUM CHLORIDE 100 ML IV SCH (07:58)
[2021-07-18] MEDS: NYSTATIN POWDER 15GM BTL EXT SCH ×3 (07:59→21:58)
[2021-07-18] MEDS: MULTIVITAMIN TAB PO SCH (07:59)
[2021-07-18] MEDS: POTASSIUM CHLORIDE CRTAB 20 MEQ TABCR PO SCH (07:59)
[2021-07-18] MEDS: SERTRALINE HCL 50 MG TABLET PO SCH (07:59)
[2021-07-18 08:07] LABS: BUN Creatinine Ratio 26.7 (10-20); Calcium 9.3 mg/dl (8.5-10.1); Creatinine Clr Calc Pharmacy 37.2 ml/min; Est GFR (African American) 35.6 ml/min; Est GFR (Non-African American) 30.7 ml/min
[2021-07-18] MEDS ORDERED: EPOETIN ALFA 10,000 UNITS/ML VIAL SQ ONE ×2 (09:29→10:23)
--- NOTE | 2021-07-18 10:29 | Nephrology Progress Note ---
Date of Service July 18, 2021 Assessment & Plan (1) Acute on chronic renal insufficiency: Plan: CIRILO with CRS. Creatinine improved to 2.0 mg/dL. Baseline kidney function 1.6-1.9 mg/dL. Non-oliguric. Electrolytes normal. Remains on KCl 40 mEq daily. Volume status continues to improve. Medications appropriate for kidney dysfunction. Low sodium diet with fluid restriction. Monitor metabolic profile + magnesium while inpatient. (2) Hypervolemia due to congestive heart failure: Plan: Remains markedly volume overload. BP acceptable. Continue current therapy. Bumex 4 PO BID. (3) Bilateral edema of lower extremity: Plan: Compression wraps and feet elevation. (4) Ischemic cardiomyopathy: Plan: Plan of care reviewed with cardiology yesterday. Document I/O's and daily weight. I would suggest restarting Entresto today or tomorrow while monitoring kidney function. (5) Anemia: Plan: Venofer 200 mg IV daily for anemia. Day 01/04. Unfortunately H/H continues to trend down. Will provide Epogen booster today. Monitor for GI blood loss and suggest checking stool. Admission and Anticipated Discharge Date Admission Date: July 13, 2021 Subjective No acute events overnight. Weakness persists. Breathing comfortably. Unsteady on feet. Noted fall yesterday. Edema improving. Denies melena or hematochezia. Review of Systems Review of Systems: All systems reviewed & are unremarkable except as noted in HPI & below Physical Exam Constitutional: well developed; no acute distress Eyes: no scleral abnormality and no corneal abnormality ENMT: Mouth: no oral mucosal abnormality and oral mucous membranes not dry Neck: normal visual inspection and trachea midline Respiratory: normal respiratory effort Auscultation: + rales Cardiovascular: Rate/Rhythm: regular rate Heart Sounds: normal S1 and normal S2 Extremities: + edema Musculoskeletal: Extremities: no cyanosis and no clubbing Skin: normal turgor; no lesions Neurologic: Motor/Sensory: no tremor and no asterixis Psychiatric: Orientation: alert and oriented x 3 Results & Data ([facility]) Vital Signs (Past 12 Hours) Vital Signs Temp Pulse Pulse Resp BP BP Pulse Ox 07/18/21 07:11 36.3 C L 70 18 116/67 91 07/18/21 06:22 71 07/18/21 04:39 36.3 C L 62 20 121/67 96 07/17/21 22:46 36.7 C 72 18 122/64 93 Laboratory Results Laboratory Results - last 24 hr 07/18/21 07/18/21 07/18/21 06:44 06:44 06:44 WBC 9.68 RBC 3.11 L Hgb 9.1 L Hct 29.2 L MCV 93.9 MCH 29.3 MCHC 31.2 L RDW Std Deviation 62.9 H RDW Coeff of Jeff 19.6 H Plt Count 315 MPV 10.4 Sodium 138 Potassium 4.0 D Chloride 101 Carbon Dioxide 28 Anion Gap 9.0 BUN 54 H Creatinine 2.03 H Est Cr Clr Drug Dosing 37.2 Est GFR ( Amer) 35.6 Est GFR (Non-Af Amer) 30.7 BUN/Creatinine Ratio 26.7 H Glucose 141 H Calcium 9.3 Magnesium 2.0 AST 26 ALT 25 Vitamin B12 Pending PG Care Time/CCT Total # of Minutes Spent Total Time Spent with Patient: Total time spent is greater than 50% in coordination of care (as documented) at patient's floor/unit and/or counseling patient: Coding Level of Care Code 92487 Subseq Hosp Care Lvl 3 Diagnoses Acute on chronic renal insufficiency N28.9; N18.9 Hypervolemia due to congestive heart failure E87.70; I50.9 Bilateral edema of lower extremity R60.0 Ischemic cardiomyopathy I25.5 Anemia D64.9
--- NOTE | 2021-07-18 21:50 | Hospitalist Progress Note ---
Date of Service July 18, 2021 Assessment & Plan (1) Acute on chronic combined systolic and diastolic CHF (congestive heart failure): Plan: appreciate cardiology & nephrology assistance cont bumex 4mg BID in a controlled medical setting he diureses well and achieves euvolemia fairly well at home he decompensates - due to noncompliance with meds and/or diet? other? cont metoprolol resume low-dose Entresto in am - I discussed this with Dr Barnes today (2) Acute kidney injury: Plan: 2nd to #1 - resolved Cr has nearly returned to baseline appreciate nephrology assistance (3) Chronic renal failure, stage 3b: Plan: baseline Cr about 1.8 today = 2 daily BMP (4) Anemia: Plan: appreciate nephrology management with IV venofer H/H remain stable in the 9-10 range (5) Fall: Plan: b12 level wnl frequent falls at home no dizziness or lightheadedness or vertigo neuropathy of legs? other? PT, OT going to [facility] post-d/c (6) Chest pain: Plan: chronic has known CAD, but symptoms not c/w ischemia (7) Atrial fibrillation: Plan: remains in NSR cont amiodarone cont eliquis cautiously cont beta ruby (8) Ischemic cardiomyopathy: Plan: EF 30-35% (9) Hx of myocardial infarction: (10) History of pulmonary embolus (PE): Plan: eliquis BID (11) Hypokalemia: Plan: replaced and resolved bmp am (12) DVT prophylaxis: Plan: eliquis BID Plan: left message for pt's nephew on voicemail 07/18/17 Admission and Anticipated Discharge Date Admission Date: July 13, 2021 Subjective no events overnight he does report "I'm so tired" and endorses poor sleep does not wake up feeling refreshed denies myalgias unsteadiness on feet remains we had lengthy discussion about him going to [facility] and he is accepting/comfortable w/ that plan no change in baseline LOREDO tele - NSR overnight Review of Systems Review of Systems: gen - good appetite, no fevers CV - no report of chest pain today; no orthopnea pulm - chronic LOREDO, no dyspnea at rest GI - no pain, nausea, emesis Physical Exam Physical Exam: gen - NAD, pleasant, sitting in chair skin - stasis changes b/l legs; wraps in place over lower legs neck - JVD present heart - RRR, s1 s2, 2/6 Systolic murmur LSB lungs - bibasilar dry rales - no change abd - soft NT ND BS+ ext - 2+ edema of b/l legs, pulses 2+ b/l Results & Data Results & Data ([facility]) Vital Signs (Past 12 Hours) Vital Signs Temp Pulse Pulse Pulse Resp BP Pulse Ox 07/18/21 18:39 37.1 C 67 20 107/69 96 07/18/21 15:26 36.7 C 70 20 102/59 L 92 07/18/21 14:43 68 Laboratory Results Laboratory Results - last 24 hr 07/18/21 07/18/21 07/18/21 06:44 06:44 06:44 WBC 9.68 RBC 3.11 L Hgb 9.1 L Hct 29.2 L MCV 93.9 MCH 29.3 MCHC 31.2 L RDW Std Deviation 62.9 H RDW Coeff of Jeff 19.6 H Plt Count 315 MPV 10.4 Sodium 138 Potassium 4.0 D Chloride 101 Carbon Dioxide 28 Anion Gap 9.0 BUN 54 H Creatinine 2.03 H Est Cr Clr Drug Dosing 37.2 Est GFR ( Amer) 35.6 Est GFR (Non-Af Amer) 30.7 BUN/Creatinine Ratio 26.7 H Glucose 141 H Calcium 9.3 Magnesium 2.0 AST 26 ALT 25 Vitamin B12 1090 H PG Care Time/CCT Total # of Minutes Spent Total Time Spent with Patient: Total time spent is greater than 50% in coordination of care (as documented) at patient's floor/unit and/or counseling patient: Coding Level of Care Code 48317 Subseq Hosp Care Lvl 2 Diagnoses Acute on chronic combined systolic and diastolic CHF (congestive heart failure) I50.43 Acute kidney injury N17.9 Chronic renal failure, stage 3b N18.32 Anemia D64.9 Fall W19.XXXA Chest pain R07.9 Atrial fibrillation I48.19 Atrial fibrillation type: persistent (not longstanding) Ischemic cardiomyopathy I25.5 Hx of myocardial infarction I25.2 History of pulmonary embolus (PE) Z86.711 Hypokalemia E87.6 DVT prophylaxis Z29.9 (1) Atrial fibrillation Atrial fibrillation type: persistent (not longstanding) Qualified Code(s): I48.19 - Other persistent atrial fibrillation
[2021-07-18] MEDS: AMIODARONE 200 MG TAB PO SCH (21:55)
[2021-07-18] MEDS: MELATONIN 3 MG TAB PO SCH (21:56)
[2021-07-18] MEDS: COLESTIPOL HCL 1 GM TAB PO SCH (21:58)
[2021-07-19 08:29] LABS: BUN Creatinine Ratio 27.3 (10-20); C Reactive Protein 10.4 mg/dl (0-0.29); Calcium 9.3 mg/dl (8.5-10.1); Est GFR (African American) 35.4 ml/min; Est GFR (Non-African American) 30.5 ml/min
[2021-07-19] MEDS: IRON SUCROSE 200 MG in 0.9 % SODIUM CHLORIDE 100 ML IV SCH (08:34)
[2021-07-19] MEDS: SERTRALINE HCL 50 MG TABLET PO SCH (08:34)
[2021-07-19] MEDS: NYSTATIN POWDER 15GM BTL EXT SCH ×3 (08:34→21:41)
[2021-07-19] MEDS: allopurinoL 300 MG TAB PO SCH (08:35)
[2021-07-19] MEDS: POTASSIUM CHLORIDE CRTAB 20 MEQ TABCR PO SCH (08:35)
[2021-07-19] MEDS: MULTIVITAMIN TAB PO SCH (08:35)
[2021-07-19] MEDS: METOPROLOL SUCC 50MG EXT REL TAB PO SCH ×2 (08:35→21:41)
[2021-07-19] MEDS: APIXABAN 5 MG TABLET PO SCH ×2 (08:35→21:42)
[2021-07-19] MEDS: OMEGA-3 (PURIFIED FISH OIL) 1 GM CAP PO SCH (08:35)
[2021-07-19] MEDS: BUMETANIDE 1 MG TAB PO SCH ×2 (08:35→16:37)
[2021-07-19] MEDS: CLOPIDOGREL BISULFATE 75 MG TAB PO SCH (08:35)
--- NOTE | 2021-07-19 10:16 | Nephrology Progress Note ---
Date of Service July 19, 2021 Assessment & Plan (1) Acute on chronic renal insufficiency: Plan: CIRILO with CRS. Creatinine stable at 2.0 mg/dL. Baseline kidney function 1.6-1.9 mg/dL. Non-oliguric. Electrolytes normal. Remains on KCl 40 mEq daily. Volume status co ntinues to improve. Medications appropriate for kidney dysfunction. Low sodium diet with fluid restriction. Monitor metabolic profile + magnesium while inpatient. (2) Hypervolemia due to congestive heart failure: Plan: Remains markedly volume overload. BP acceptable. Continue current therapy. Bumex 4 PO BID. (3) Bilateral edema of lower extremity: Plan: Compression wraps and feet elevation. (4) Ischemic cardiomyopathy: Plan: Plan of care reviewed with cardiology and Dr. Plasencia. Document I/O's and daily weight. If BP tolerates, consider restarting Entresto at low 24/36 mg dose. (5) Anemia: Plan: Venofer 200 mg IV daily for anemia. Day 5. Unfortunately H/H continues to trend down. Will provide Epogen booster today. Monitor for GI blood loss and suggest checking stool. Admission and Anticipated Discharge Date Admission Date: July 13, 2021 Subjective No acute events overnight. Feeling well this AM. No complaints. Review of Systems Review of Systems: All systems reviewed & are unremarkable except as noted in HPI & below Physical Exam Constitutional: well developed; no acute distress Eyes: no scleral abnormality and no corneal abnormality ENMT: Mouth: no oral mucosal abnormality and oral mucous membranes not dry Neck: normal visual inspection and trachea midline Respiratory: normal respiratory effort Auscultation: lungs clear to auscultation bilaterally Cardiovascular: Rate/Rhythm: regular rate Heart Sounds: normal S1 and normal S2 Extremities: + edema Musculoskeletal: Extremities: no cyanosis and no clubbing Skin: normal turgor; no lesions Neurologic: Motor/Sensory: no tremor and no asterixis Psychiatric: Orientation: alert and oriented x 3 Results & Data ([facility]) Vital Signs (Past 12 Hours) Vital Signs Temp Pulse Pulse Pulse Resp BP BP 07/19/21 07:37 36.6 C 68 20 94/58 L 07/19/21 04:00 36.4 C L 66 19 93/55 L 07/18/21 22:25 64 Pulse Ox 07/19/21 07:37 95 07/19/21 04:00 99 07/18/21 22:25 Laboratory Results Laboratory Results - last 24 hr 07/18/21 07/19/21 07/19/21 06:44 07:47 07:47 ESR 94 H Sodium 139 Potassium 4.0 Chloride 101 Carbon Dioxide 30 Anion Gap 8.0 BUN 56 H Creatinine 2.04 H Est Cr Clr Drug Dosing 37.0 Est GFR ( Amer) 35.4 Est GFR (Non-Af Amer) 30.5 BUN/Creatinine Ratio 27.3 H Glucose 139 H Calcium 9.3 C-Reactive Protein 10.40 H Vitamin B12 1090 H PG Care Time/CCT Total # of Minutes Spent Total Time Spent with Patient: Total time spent is greater than 50% in coordination of care (as documented) at patient's floor/unit and/or counseling patient: Coding Level of Care Code 58327 Subseq Hosp Care Lvl 3 Diagnoses Acute on chronic renal insufficiency N28.9; N18.9 Hypervolemia due to congestive heart failure E87.70; I50.9 Bilateral edema of lower extremity R60.0 Ischemic cardiomyopathy I25.5 Anemia D64.9
[2021-07-19] MEDS ORDERED: predniSONE 20 MG TAB PO STA (13:38)
--- NOTE | 2021-07-19 16:50 | Cardiology Progress Note ---
Date of Service July 19, 2021 Assessment & Plan (1) Acute systolic heart failure: Plan: 2. Multivessel CAD 3. Paroxysmal atrial fibrillation 4. Acute on chronic renal insufficiency 5. Bilateral venous ulcers, suspected CVI/edema 6. Failure to thrive Continues to diurese well with PO Bumex. Renal function stable near baseline Hemoglobin slight trending down. -- Continue current Bumex 4 mg BID -- Resume entresto - start low dose -- Continue toprol XL -- Continue amiodarone, eliquis -- Can hold clopidogrel if concerns for bleeding. From a cardiac standpoint OK with discharge to [facility] on maintenance diuretics. Admission and Anticipated Discharge Date Admission Date: July 13, 2021 Subjective No events overnight. Feeling well today. Feels he just needs something for more energy. Able to walk with PT today. Review of Systems Review of Systems: All systems reviewed & are unremarkable except as noted in HPI & below Physical Exam Physical Exam: General: Comfortable, in good spirits HEENT: Sclerae anicteric Lungs: Lungs clear bilaterally Cardiac: Distant heart sounds, regular, 2/6 holosystolic murmur heard best at the apex Vascular: 2+ radial bilaterally Abdomen: Soft, nontender Extremities: Well perfused, 2+ chronic lower extremity edema - improved from admission. No leakage. Wounds dressed. Neuro: Nonfocal Psych: Alert orient x3, normal affect and mood Results & Data ([facility]) Vital Signs (Past 12 Hours) Vital Signs Temp Pulse Resp BP Pulse Ox 07/19/21 14:54 97.5 F L 68 18 102/67 96 07/19/21 11:36 98.4 F 70 20 104/66 94 07/19/21 07:37 97.9 F 68 20 94/58 L 95 PG Care Time/CCT Total # of Minutes Spent Total Time Spent with Patient: Total time spent is greater than 50% in coordination of care (as documented) at patient's floor/unit and/or counseling patient: Coding Level of Care Code 14585 Subseq Hosp Care Lvl 3 Diagnoses Acute systolic heart failure I50.21
--- NOTE | 2021-07-19 20:35 | Hospitalist Progress Note ---
Date of Service July 19, 2021 Assessment & Plan (1) Acute on chronic combined systolic and diastolic CHF (congestive heart failure): Plan: appreciate cardiology & nephrology assistance cont bumex 4mg BID diuresing well in a controlled medical setting he diureses well and achieves euvolemia fairly well at home he decompensates - due to noncompliance with meds and/or diet? other? cont metoprolol resume low-dose Entresto in am BMP in am (2) Acute kidney injury: Plan: 2nd to #1 - resolved Cr is about at baseline appreciate nephrology assistance (3) Chronic renal failure, stage 3b: Plan: baseline Cr about 1.8 daily BMP (4) Anemia: Plan: appreciate nephrology management with IV venofer H/H remain stable in the 9-10 range (5) Fall: Plan: b12 level wnl frequent falls at home no dizziness or lightheadedness or vertigo neuropathy of legs? other? PT, OT going to [facility] post-d/c (6) Chest pain: Plan: chronic has known CAD, but symptoms not c/w ischemia was treated for Miguel's syndrome in 08/2020 (7) Atrial fibrillation: Plan: remains in NSR cont amiodarone cont eliquis cont beta ruby (8) Ischemic cardiomyopathy: Plan: EF 30-35% (9) Hx of myocardial infarction: (10) History of pulmonary embolus (PE): Plan: eliquis BID (11) Hypokalemia: Plan: replaced and resolved bmp am (12) DVT prophylaxis: Plan: eliquis BID (13) Elevated sed rate: Plan: ESR 90s CRP 10 PMR? no symptoms of temporal arteritis robust appetite making malignancy less likely lack of fevers, etc make SBE unlikely other autoimmune disease possible will give 20mg of prednisone x 1 if robust response in fatigue/vague muscle complaints then perhaps he has PMR check CPK in am to be complete Plan: left message for pt's nephew on voicemail 07/18/21 progressing albeit slowly Admission and Anticipated Discharge Date Admission Date: July 13, 2021 Subjective pt feeling ok today LOREDO with walking in hallway with PT no chest pain he feels fatigued despite sleeping well s/p melatonin last night he does describe a generalized ache/discomfort upon awakening denies headaches again main issue is "fatigue" and "I'm always tired" tele overnight with NSR Review of Systems Review of Systems: gen - no fevers or chills; good appetite CV - no cp, no orthopnea pulm - no cough GI - no N/V musculo - vague myalgia/muscle discomfort - more generalized than proximal muscles Physical Exam Physical Exam: gen - NAD, pleasant, sitting in chair skin - stasis changes b/l legs; wraps in place over lower legs neck - JVD present as previous heart - RRR, s1 s2, 2/6 Systolic murmur LSB lungs - bibasilar dry rales - no change abd - soft NT ND BS+ ext - 2+ edema of b/l legs, pulses 2+ b/l head - no tenderness over b/l temporal arteries neuro - no discrete proximal muscle weakness of hips or shoulders Results & Data Results & Data ([facility]) Vital Signs (Past 12 Hours) Vital Signs Temp Pulse Pulse Resp BP Pulse Ox 07/19/21 19:50 36.6 C 71 18 111/63 94 07/19/21 14:54 36.4 C L 68 18 102/67 96 07/19/21 11:36 36.9 C 70 20 104/66 94 Laboratory Results Laboratory Results - last 24 hr 07/19/21 07/19/21 07:47 07:47 ESR 94 H Sodium 139 Potassium 4.0 Chloride 101 Carbon Dioxide 30 Anion Gap 8.0 BUN 56 H Creatinine 2.04 H Est Cr Clr Drug Dosing 37.0 Est GFR ( Amer) 35.4 Est GFR (Non-Af Amer) 30.5 BUN/Creatinine Ratio 27.3 H Glucose 139 H Calcium 9.3 C-Reactive Protein 10.40 H PG Care Time/CCT Total # of Minutes Spent Total Time Spent with Patient: Total time spent is greater than 50% in coordination of care (as documented) at patient's floor/unit and/or counseling patient: Coding Level of Care Code 31322 Subseq Hosp Care Lvl 2 Diagnoses Acute on chronic combined systolic and diastolic CHF (congestive heart failure) I50.43 Acute kidney injury N17.9 Chronic renal failure, stage 3b N18.32 Anemia D64.9 Fall W19.XXXA Chest pain R07.9 Atrial fibrillation I48.19 Atrial fibrillation type: persistent (not longstanding) Ischemic cardiomyopathy I25.5 Hx of myocardial infarction I25.2 History of pulmonary embolus (PE) Z86.711 Hypokalemia E87.6 DVT prophylaxis Z29.9 Elevated sed rate R70.0 (1) Atrial fibrillation Atrial fibrillation type: persistent (not longstanding) Qualified Code(s): I48.19 - Other persistent atrial fibrillation
[2021-07-19] MEDS: AMIODARONE 200 MG TAB PO SCH (21:42)
[2021-07-19] MEDS: COLESTIPOL HCL 1 GM TAB PO SCH (23:00)
[2021-07-19] MEDS: MELATONIN 3 MG TAB PO SCH (23:03)
[2021-07-20] MEDS: IRON SUCROSE 200 MG in 0.9 % SODIUM CHLORIDE 100 ML IV SCH (07:42)
[2021-07-20] MEDS: SERTRALINE HCL 50 MG TABLET PO SCH (07:43)
[2021-07-20] MEDS: NYSTATIN POWDER 15GM BTL EXT SCH ×3 (07:43→21:37)
[2021-07-20] MEDS: VALSARTAN/SACUBITRIL 26/24MG TAB PO SCH ×2 (07:43→21:35)
[2021-07-20] MEDS: MULTIVITAMIN TAB PO SCH (07:43)
[2021-07-20] MEDS: POTASSIUM CHLORIDE CRTAB 20 MEQ TABCR PO SCH (07:43)
[2021-07-20] MEDS: OMEGA-3 (PURIFIED FISH OIL) 1 GM CAP PO SCH (07:44)
[2021-07-20] MEDS: METOPROLOL SUCC 50MG EXT REL TAB PO SCH ×2 (07:44→21:35)
[2021-07-20] MEDS: CLOPIDOGREL BISULFATE 75 MG TAB PO SCH (07:44)
[2021-07-20] MEDS: allopurinoL 300 MG TAB PO SCH (07:44)
[2021-07-20] MEDS: APIXABAN 5 MG TABLET PO SCH ×2 (07:44→21:36)
[2021-07-20] MEDS: BUMETANIDE 1 MG TAB PO SCH ×2 (07:44→16:20)
[2021-07-20 07:48] LABS: BUN Creatinine Ratio 28.8 (10-20); Calcium 9.6 mg/dl (8.5-10.1); Creatinine Clr Calc Pharmacy 37.4 ml/min; Est GFR (African American) 35.8 ml/min; Est GFR (Non-African American) 30.9 ml/min; Potassium 3.8 mmol/L (3.5-5.1)
--- NOTE | 2021-07-20 10:27 | Nephrology Progress Note ---
Date of Service July 20, 2021 Assessment & Plan (1) Acute on chronic renal insufficiency: Plan: CIRILO with CRS. Creatinine stable at 2.0 mg/dL. Baseline kidney function 1.6-1.9 mg/dL. Non-oliguric. Electrolytes normal. Remains on KCl 40 mEq daily. Volume status co ntinues to improve. Medications appropriate for kidney dysfunction. Low sodium diet with fluid restriction. Monitor metabolic profile + magnesium while inpatient. (2) Hypervolemia due to congestive heart failure: Plan: Remains markedly volume overload. BP acceptable. Continue current therapy. Bumex 4 PO BID. (3) Bilateral edema of lower extremity: Plan: Compression wraps and feet elevation. (4) Ischemic cardiomyopathy: Plan: Document I/O's and daily weight. Entresto 24/36 mg restarted and Moisés is tolerating the medication well. (5) Anemia: Plan: Venofer 200 mg IV daily for anemia completed. Epogen booster provided on 07/18. Admission and Anticipated Discharge Date Admission Date: July 13, 2021 Subjective No acute events overnight. No complaints this AM. Some improvement in joint pains with prednisone. Review of Systems Review of Systems: All systems reviewed & are unremarkable except as noted in HPI & below Physical Exam Constitutional: well developed; no acute distress Eyes: no scleral abnormality and no corneal abnormality ENMT: Mouth: no oral mucosal abnormality and oral mucous membranes not dry Neck: normal visual inspection and trachea midline Respiratory: normal respiratory effort Auscultation: lungs clear to auscultation bilaterally Cardiovascular: Rate/Rhythm: regular rate Heart Sounds: normal S1 and normal S2 Extremities: + edema Musculoskeletal: Extremities: no cyanosis and no clubbing Skin: normal turgor; no lesions Neurologic: Motor/Sensory: no tremor and no asterixis Psychiatric: Orientation: alert and oriented x 3 [facility]) Vital Signs (Past 12 Hours) Vital Signs Temp Pulse Pulse Resp BP Pulse Ox 07/20/21 07:43 36.3 C L 69 18 112/65 98 07/20/21 03:45 36.3 C L 72 18 119/65 99 07/20/21 00:00 71 07/19/21 23:32 36.3 C L 71 20 111/66 97 Laboratory Results Laboratory Results - last 24 hr 07/20/21 06:56 Sodium 140 Potassium 3.8 Chloride 101 Carbon Dioxide 29 Anion Gap 9.0 BUN 58 H Creatinine 2.02 H Est Cr Clr Drug Dosing 37.4 Est GFR ( Amer) 35.8 Est GFR (Non-Af Amer) 30.9 BUN/Creatinine Ratio 28.8 H Glucose 143 H Calcium 9.6 Total Creatine Kinase 39 PG Care Time/CCT Total # of Minutes Spent Total Time Spent with Patient: Total time spent is greater than 50% in coordination of care (as documented) at patient's floor/unit and/or counseling patient: Coding Level of Care Code 21938 Subseq Hosp Care Lvl 3 Diagnoses Acute on chronic renal insufficiency N28.9; N18.9 Hypervolemia due to congestive heart failure E87.70; I50.9 Bilateral edema of lower extremity R60.0 Ischemic cardiomyopathy I25.5 Anemia D64.9
--- NOTE | 2021-07-20 19:50 | Hospitalist Progress Note ---
Date of Service July 20, 2021 Assessment & Plan (1) Acute on chronic combined systolic and diastolic CHF (congestive heart failure): Plan: appreciate cardiology & nephrology assistance cont bumex 4mg BID in a controlled medical setting he diureses well and achieves euvolemia fairly well at home he decompensates - due to noncompliance with meds and/or diet? other? cont metoprolol resumed low-dose Entresto BMP in am (2) Acute kidney injury: Plan: 2nd to #1 - resolved Cr is about at baseline appreciate nephrology assistance (3) Chronic renal failure, stage 3b: Plan: baseline Cr about 1.8 daily BMP (4) Anemia: Plan: appreciate nephrology management with IV venofer H/H remain stable in the 9-10 range checking SPEP/UPEP because of high sed rate/crp (5) Fall: Plan: b12 level wnl frequent falls at home no dizziness or lightheadedness or vertigo neuropathy of legs? other? PT, OT going to [facility] post-d/c (6) Chest pain: Plan: chronic has known CAD, but symptoms not c/w ischemia was treated for Miguel's syndrome in 08/2020 musculoskeletal cause suspected could consider ct chest if the pain worsens (7) Atrial fibrillation: Plan: remains in NSR cont amiodarone cont eliquis cont beta ruby (8) Ischemic cardiomyopathy: Plan: EF 30-35% (9) Hx of myocardial infarction: (10) History of pulmonary embolus (PE): Plan: eliquis BID (11) Hypokalemia: Plan: replaced and resolved bmp am (12) DVT prophylaxis: Plan: eliquis BID (13) Elevated sed rate: Plan: ESR 90s CRP 10 no response to prednisone low-dose thus PMR unlikely no symptoms of temporal arteritis robust appetite making malignancy less likely lack of fevers, etc make SBE unlikely other autoimmune disease possible CPK noted to be nl today check SPEP/UPEP to r/o underlying bone marrow malignancy had mildly elevated lipase recently - uncertain cause (due to acute/chronic kidney disease??) - repeat level am Plan: left message for pt's nephew on voicemail 07/18/21 progressing slowly dispo - [facility] at d/c Admission and Anticipated Discharge Date Admission Date: July 13, 2021 Subjective pt states he did not have any dramatic improvement in his fatigue or vague muscle discomforts/joint discomforts with the low-dose prednisone given yesterday we discussed that he likely does not have PMR then he also reported poor sleep last night no change in breathing no change in LE edema eating well Review of Systems Review of Systems: gen - no fevers or chills CV - denies chest pain HEENT - reports that he has intermittent vertigo and intermittent "feeling like my head is in an echo chamber"; has been having these symptoms for a few months pulm - mild cough, dyspnea unchanged Physical Exam Physical Exam: gen - NAD, pleasant, sitting in chair skin - stasis changes b/l legs; wraps in place over lower legs neck - JVD present as previous heart - RRR, s1 s2, 2/6 Systolic murmur LSB lungs - bibasilar dry rales - no change abd - soft NT ND BS+ ext - 2+ edema of b/l legs, pulses 2+ b/l - edema the same neuro - no discrete proximal muscle weakness of hips or shoulders Results & Data Results & Data ([facility]) Vital Signs (Past 12 Hours) Vital Signs Temp Pulse Resp BP Pulse Ox 07/20/21 19:28 36.7 C 65 19 109/67 98 07/20/21 15:16 36.5 C 68 18 97/60 L 95 07/20/21 11:06 36.5 C 71 18 112/70 97 Laboratory Results Laboratory Results - last 24 hr 07/20/21 06:56 Sodium 140 Potassium 3.8 Chloride 101 Carbon Dioxide 29 Anion Gap 9.0 BUN 58 H Creatinine 2.02 H Est Cr Clr Drug Dosing 37.4 Est GFR ( Amer) 35.8 Est GFR (Non-Af Amer) 30.9 BUN/Creatinine Ratio 28.8 H Glucose 143 H Calcium 9.6 Total Creatine Kinase 39 PG Care Time/CCT Total # of Minutes Spent Total Time Spent with Patient: Total time spent is greater than 50% in coordination of care (as documented) at patient's floor/unit and/or counseling patient: Coding Level of Care Code 66630 Subseq Hosp Care Lvl 2 Diagnoses Acute on chronic combined systolic and diastolic CHF (congestive heart failure) I50.43 Acute kidney injury N17.9 Chronic renal failure, stage 3b N18.32 Anemia D64.9 Fall W19.XXXA Chest pain R07.9 Atrial fibrillation I48.19 Atrial fibrillation type: persistent (not longstanding) Ischemic cardiomyopathy I25.5 Hx of myocardial infarction I25.2 History of pulmonary embolus (PE) Z86.711 Hypokalemia E87.6 DVT prophylaxis Z29.9 Elevated sed rate R70.0 (1) Atrial fibrillation Atrial fibrillation type: persistent (not longstanding) Qualified Code(s): I48.19 - Other persistent atrial fibrillation
[2021-07-20] MEDS: COLESTIPOL HCL 1 GM TAB PO SCH (21:35)
[2021-07-20] MEDS: AMIODARONE 200 MG TAB PO SCH (21:36)
[2021-07-20] MEDS: MELATONIN 3 MG TAB PO SCH (21:36)
[2021-07-21 07:51] LABS: BUN Creatinine Ratio 30.4 (10-20); Calcium 9.3 mg/dl (8.5-10.1); Creatinine Clr Calc Pharmacy 33.9 ml/min; Est GFR (African American) 31.4 ml/min; Est GFR (Non-African American) 27.1 ml/min; Potassium 3.7 mmol/L (3.5-5.1)
[2021-07-21] MEDS: allopurinoL 300 MG TAB PO SCH (09:42)
[2021-07-21] MEDS: APIXABAN 5 MG TABLET PO SCH ×2 (09:42→20:25)
[2021-07-21] MEDS: BUMETANIDE 1 MG TAB PO SCH ×2 (09:43→16:16)
[2021-07-21] MEDS: CLOPIDOGREL BISULFATE 75 MG TAB PO SCH (09:43)
[2021-07-21] MEDS: MULTIVITAMIN TAB PO SCH (09:43)
[2021-07-21] MEDS: OMEGA-3 (PURIFIED FISH OIL) 1 GM CAP PO SCH (09:43)
[2021-07-21] MEDS: POTASSIUM CHLORIDE CRTAB 20 MEQ TABCR PO SCH (09:43)
[2021-07-21] MEDS: METOPROLOL SUCC 50MG EXT REL TAB PO SCH ×2 (09:43→20:24)
[2021-07-21] MEDS: VALSARTAN/SACUBITRIL 26/24MG TAB PO SCH ×2 (09:44→20:26)
[2021-07-21] MEDS: SERTRALINE HCL 50 MG TABLET PO SCH (09:44)
[2021-07-21] MEDS: NYSTATIN POWDER 15GM BTL EXT SCH ×2 (09:44→13:21)
--- NOTE | 2021-07-21 10:24 | Nephrology Progress Note ---
Date of Service July 21, 2021 Assessment & Plan (1) Acute on chronic renal insufficiency: Plan: CIRILO with CRS. Creatinine stable at 2.2 mg/dL. Baseline kidney function 1.6-1.9 mg/dL. Non-oliguric. Electrolytes normal. Remains on KCl 40 mEq daily. Volume status co ntinues to improve. Medications appropriate for kidney dysfunction. Low sodium diet with fluid restriction. Monitor metabolic profile + magnesium while inpatient. (2) Hypervolemia due to congestive heart failure: Plan: Remains markedly volume overload. BP acceptable. Continue current therapy. Bumex 4 PO BID. (3) Bilateral edema of lower extremity: Plan: Compression wraps and feet elevation. (4) Ischemic cardiomyopathy: Plan: Document I/O's and daily weight. Entresto 24/36 mg restarted. BP low. Will monitor. (5) Anemia: Plan: Venofer 200 mg IV daily for anemia completed. Epogen booster provided on 07/18. Admission and Anticipated Discharge Date Admission Date: July 13, 2021 Subjective No acute events overnight. Moisés states that he feels the same today. No interval changes. A little tired. Did not sleep as well yesterday evening. BP low this AM. Still unsteady on his feet and reporting that he is in no padron to leave the hospital. Review of Systems Review of Systems: All systems reviewed & are unremarkable except as noted in HPI & below Physical Exam Constitutional: well developed; no acute distress Eyes: no scleral abnormality and no corneal abnormality ENMT: Mouth: no oral mucosal abnormality and oral mucous membranes not dry Neck: normal visual inspection and trachea midline Respiratory: normal respiratory effort Auscultation: lungs clear to auscultation bilaterally Cardiovascular: Rate/Rhythm: regular rate Heart Sounds: normal S1 and normal S2 Extremities: + edema Musculoskeletal: Extremities: no cyanosis and no clubbing Skin: normal turgor; no lesions Neurologic: Motor/Sensory: no tremor and no asterixis Psychiatric: Orientation: alert and oriented x 3 Results & Data ([facility]) Vital Signs (Past 12 Hours) Vital Signs Temp Pulse Pulse Resp BP BP Pulse Ox 07/21/21 07:48 59 L 07/21/21 07:30 36.6 C 60 18 89/43 L 90/47 L 98 07/21/21 03:23 36.4 C L 60 18 92/52 L 95 07/21/21 00:03 65 07/20/21 23:04 36.4 C L 64 18 103/62 99 Laboratory Results Laboratory Results - last 24 hr 07/21/21 07/21/21 06:50 06:50 Sodium 139 Potassium 3.7 Chloride 102 Carbon Dioxide 28 Anion Gap 9.0 BUN 69 H Creatinine 2.25 H Est Cr Clr Drug Dosing 33.9 Est GFR ( Amer) 31.4 Est GFR (Non-Af Amer) 27.1 BUN/Creatinine Ratio 30.4 H Glucose 126 H Calcium 9.3 Total Protein (PEP) Pending Albumin (PEP) Pending Vfkrp-3-Wlvtaikql Pending Svhdo-1-Mqyrwplst Pending Yexg-1-Oubydjqh Pending Afbh-4-Gcjwnqfp Pending Gamma Globulins Pending Monoclonal Peak 3 Pending Ser Monoclonl Protein Pending Ser Monoclonal Prot 2 Pending PEP Interpretation Pending Lipase 285 PG Care Time/CCT Total # of Minutes Spent Total Time Spent with Patient: Total time spent is greater than 50% in coordination of care (as documented) at patient's floor/unit and/or counseling patient: Coding Level of Care Code 82117 Subseq Hosp Care Lvl 3 Diagnoses Acute on chronic renal insufficiency N28.9; N18.9 Hypervolemia due to congestive heart failure E87.70; I50.9 Bilateral edema of lower extremity R60.0 Ischemic cardiomyopathy I25.5 Anemia D64.9
[2021-07-21] MEDS: AMIODARONE 200 MG TAB PO SCH (20:24)
[2021-07-21] MEDS: MELATONIN 3 MG TAB PO SCH (20:24)
--- NOTE | 2021-07-21 22:10 | Hospitalist Progress Note ---
Date of Service July 21, 2021 Assessment & Plan (1) Acute on chronic combined systolic and diastolic CHF (congestive heart failure): Plan: appreciate cardiology & nephrology assistance cont bumex 4mg BID weight is near his dry weight (108-109 kg) cont metoprolol cont low-dose Entresto BMP in am (2) Acute kidney injury: Plan: 2nd to #1 - resolved peak Cr 3.69 last several days Cr of 2 to 2.2 bmp am (3) Chronic renal failure, stage 3b: Plan: baseline Cr about 1.8 to 2 daily BMP (4) Anemia: Plan: appreciate nephrology management with IV venofer H/H remain stable in the 9-10 range checking SPEP/UPEP because of high sed rate/crp to r/o bone marrow disorders (5) Fall: Plan: b12 level wnl frequent falls at home no dizziness or lightheadedness but does have occasional vertigo and "echo feeling" in his head inner ear issue? neuropathy of legs? other? PT, OT going to [facility] post-d/c due to his complaints of intermittent vertigo and intermittent "echo feeling" in his head send to ENT (6) Chest pain: Plan: chronic has known CAD, but symptoms not c/w ischemia was treated for Miguel's syndrome in 08/2020 musculoskeletal cause suspected could consider ct chest if the pain worsens (7) Atrial fibrillation: Plan: remains in NSR cont amiodarone cont eliquis cont beta ruby (8) Ischemic cardiomyopathy: Plan: EF 30-35% (9) Hx of myocardial infarction: (10) History of pulmonary embolus (PE): Plan: eliquis BID (11) Hypokalemia: Plan: replaced and resolved bmp am (12) DVT prophylaxis: Plan: eliquis BID (13) Elevated sed rate: Plan: ESR 90s CRP 10 no response to prednisone low-dose thus PMR unlikely no symptoms of temporal arteritis robust appetite making malignancy less likely lack of fevers, etc make SBE unlikely other autoimmune disease possible CPK noted to be nl check SPEP/UPEP to r/o underlying bone marrow malignancy had mildly elevated lipase recently - uncertain cause (due to acute/chronic kidney disease??) - repeat level today wnl previous imaging of abd/pelvis did not show pancreatic pathology (that was in 04/2020) Plan: left message for pt's nephew on voicemail 07/18/21 progressing slowly dispo - [facility] at d/c - Saturday? Admission and Anticipated Discharge Date Admission Date: July 13, 2021 Subjective no events overnight sitting in chair napping when I arrived awoke easily no new complaints dyspnea on exertion unchanged chest discomfort w/ transfers from the chair to the bed unchanged (chronic) eating well Review of Systems Review of Systems: gen - fatigue (Chronic) CV - no orthopnea pulm - no cough GI - no N/V Physical Exam Physical Exam: gen - NAD, pleasant, sitting in chair skin - stasis changes b/l legs; wraps in place over lower legs; scattered ulcerations with adhered scab b/l shins neck - JVD present even at 90 degrees heart - RRR, s1 s2, 2/6 Systolic murmur LSB lungs - bibasilar dry rales - no change; decreased BS L base abd - soft NT ND BS+ ext - 2+ edema of b/l legs, pulses 2+ b/l Results & Data Results & Data ([facility]) Vital Signs (Past 12 Hours) Vital Signs Temp Pulse Pulse Pulse Resp BP BP 07/21/21 19:26 63 18 92/51 L 07/21/21 16:05 36.3 C L 62 18 94/55 L 07/21/21 15:09 60 07/21/21 11:34 36.7 C 65 18 107/58 L Pulse Ox 07/21/21 19:26 90 07/21/21 16:05 93 07/21/21 15:09 07/21/21 11:34 93 Laboratory Results Laboratory Results - last 24 hr 07/21/21 07/21/21 06:50 06:50 Sodium 139 Potassium 3.7 Chloride 102 Carbon Dioxide 28 Anion Gap 9.0 BUN 69 H Creatinine 2.25 H Est Cr Clr Drug Dosing 33.9 Est GFR ( Amer) 31.4 Est GFR (Non-Af Amer) 27.1 BUN/Creatinine Ratio 30.4 H Glucose 126 H Calcium 9.3 Total Protein (PEP) Pending Albumin (PEP) Pending Ihlvp-1-Wudbggupk Pending Rbzuk-4-Xldfaehda Pending Menn-1-Sjkuhqdl Pending Mtgf-6-Rdgbkfcz Pending Gamma Globulins Pending Monoclonal Peak 3 Pending Ser Monoclonl Protein Pending Ser Monoclonal Prot 2 Pending PEP Interpretation Pending Lipase 285 PG Care Time/CCT Total # of Minutes Spent Total Time Spent with Patient: Total time spent is greater than 50% in coordination of care (as documented) at patient's floor/unit and/or counseling patient: Coding Level of Care Code 18480 Subseq Hosp Care Lvl 2 Diagnoses Acute on chronic combined systolic and diastolic CHF (congestive heart failure) I50.43 Acute kidney injury N17.9 Chronic renal failure, stage 3b N18.32 Anemia D64.9 Fall W19.XXXA Chest pain R07.9 Atrial fibrillation I48.19 Atrial fibrillation type: persistent (not longstanding) Ischemic cardiomyopathy I25.5 Hx of myocardial infarction I25.2 History of pulmonary embolus (PE) Z86.711 Hypokalemia E87.6 DVT prophylaxis Z29.9 Elevated sed rate R70.0 (1) Atrial fibrillation Atrial fibrillation type: persistent (not longstanding) Qualified Code(s): I48.19 - Other persistent atrial fibrillation
[2021-07-21] MEDS: COLESTIPOL HCL 1 GM TAB PO SCH (22:55)
[2021-07-22 06:09] LABS: Hematocrit (blood only) 29.6 % (42-52); Mean Corpuscular Hemoglobin 29.4 pg (25-34); Mean Corpuscular Hgb Conc 30.4 g/dL (32-36); Mean Corpuscular Volume 96.7 fL (80-100); Mean Platelet Volume 10.2 fL (7.4-10.4); Platelet Count 282 K/uL (130-400); RDW Standard Deviation 71.5 fL (36.4-46.3); Red Blood Count 3.06 M/uL (4.7-6.1); White Blood Count 10.14 K/uL (4.8-10.8)
[2021-07-22 06:50] LABS: BUN Creatinine Ratio 33.6 (10-20); Calcium 9.6 mg/dl (8.5-10.1); Creatinine Clr Calc Pharmacy 30.6 ml/min; Est GFR (African American) 27.9 ml/min; Est GFR (Non-African American) 24.1 ml/min; Potassium 4.1 mmol/L (3.5-5.1)
[2021-07-22] MEDS: allopurinoL 300 MG TAB PO SCH (07:53)
[2021-07-22] MEDS: POTASSIUM CHLORIDE CRTAB 20 MEQ TABCR PO SCH (07:53)
[2021-07-22] MEDS: VALSARTAN/SACUBITRIL 26/24MG TAB PO SCH ×2 (07:53→21:50)
[2021-07-22] MEDS: APIXABAN 5 MG TABLET PO SCH ×2 (07:54→21:51)
[2021-07-22] MEDS: BUMETANIDE 1 MG TAB PO SCH ×2 (07:55→16:05)
[2021-07-22] MEDS: SERTRALINE HCL 50 MG TABLET PO SCH (07:55)
[2021-07-22] MEDS: MULTIVITAMIN TAB PO SCH (07:55)
[2021-07-22] MEDS: OMEGA-3 (PURIFIED FISH OIL) 1 GM CAP PO SCH (07:56)
[2021-07-22] MEDS: CLOPIDOGREL BISULFATE 75 MG TAB PO SCH (07:56)
[2021-07-22] MEDS: METOPROLOL SUCC 50MG EXT REL TAB PO SCH ×2 (08:03→21:50)
--- NOTE | 2021-07-22 09:31 | Nephrology Progress Note ---
Date of Service July 22, 2021 Assessment & Plan (1) Acute on chronic renal insufficiency: Plan: * CIRILO/CKD due to CRS. Baseline Cr 1.9 * Patient is clinically volume contracted. Cr is trending up. I&O reveal net - 14L since admission. Weight is 5 lbs below outpatient EDW (outpatient EDW 248 lbs). LE swelling due to R heart failure * Will reduce Bumex to 2 mg po BID * Continue B LE compression wraps * Monitor volume status and PRP (2) Ischemic cardiomyopathy: Plan: * On Entresto 24/36 mg daily - will monitor bp and kidney function (3) Anemia: Plan: * Venofer 1g IV completed * Epogen provided on 07/18 * Will recheck iron studies w/ am labs * Awaiting SPEP results Admission and Anticipated Discharge Date Admission Date: July 13, 2021 Subjective Mr. Peterson was evaluated in his hospital room this morning. He reports persistent LE swelling but notes that he is now breathing comfortably on RA. Review of Systems Constitutional: + weakness; no fever Eyes: no problem reported Ear, Nose, Mouth, Throat: no problem reported Respiratory: no dyspnea Cardiovascular: + edema; no chest pain and no palpitations Gastrointestinal: no abdominal pain, no nausea, no vomiting and no diarrhea/loose stools Genitourinary: no dysuria, no urinary hesitancy or no hematuria Musculoskeletal: no back pain Integumentary: no rash Neurologic: no falls, no dizziness and no confusion Physical Exam Constitutional: + overweight; not in distress Eyes: PERRL, conjunctivae normal, anicteric sclerae ENMT: external ear and nose normal, oropharynx normal Neck: trachea midline, no thyromegaly Respiratory: normal respiratory effort, lungs clear to auscultation Cardiovascular: Rate/Rhythm: regular rate and regular rhythm Extremities: + edema (2+ pretibial pitting edema) Gastrointestinal (Abdomen): normal bowel sounds, soft, nontender, no hepatosplenomegaly Neurologic: awake; not confused Results & Data ([facility]) Vital Signs (Past 12 Hours) Vital Signs Temp Pulse Pulse Pulse Resp BP BP 07/22/21 08:08 36.5 C 71 18 95/57 L 07/22/21 07:12 69 07/22/21 03:04 36.4 C L 65 16 96/61 L 07/22/21 03:00 57 L 07/21/21 22:57 36.4 C L 58 L 18 90/50 L Pulse Ox 07/22/21 08:08 97 07/22/21 07:12 07/22/21 03:04 98 07/22/21 03:00 07/21/21 22:57 94 Laboratory Results Laboratory Tests 07/21/21 07/22/21 07/22/21 06:50 05:31 05:31 WBC 10.14 Hgb 9.0 L Hct 29.6 L Plt Count 282 Sodium 137 Potassium 4.1 Chloride 101 Carbon Dioxide 29 BUN 83 H Creatinine 2.48 H Glucose 129 H Calcium 9.6 PEP Interpretation Pending PG Care Time/CCT Total # of Minutes Spent Total Time Spent with Patient: Total time spent is greater than 50% in coordination of care (as documented) at patient's floor/unit and/or counseling patient: Coding Level of Care Code 54247 Subseq Hosp Care Lvl 3 Diagnoses Acute on chronic renal insufficiency N28.9; N18.9 Ischemic cardiomyopathy I25.5 Anemia D64.9
[2021-07-22] MEDS: MELATONIN 3 MG TAB PO SCH (21:50)
[2021-07-22] MEDS: AMIODARONE 200 MG TAB PO SCH (21:51)
[2021-07-22] MEDS: COLESTIPOL HCL 1 GM TAB PO SCH (22:50)
--- NOTE | 2021-07-23 05:44 | Hospitalist Progress Note ---
Date of Service July 22, 2021 Assessment & Plan (1) Acute on chronic combined systolic and diastolic CHF (congestive heart failure): Plan: appreciate cardiology & nephrology assistance had been on bumex 4mg BID - Dr Rodrigez lowered dose to 2mg BID due to mild rise in Cr to 2.48 today LE edema is chronic and at his baseline - thought to have a component of venous insufficiency cont metoprolol cont low-dose Entresto cautiously in light of low BPs BMP in am (2) Acute kidney injury: Plan: 2nd to #1 - resolved peak Cr 3.69 last several days Cr of 2 to 2.2 but now 2.48 -- bumex dose lowered by nephrology bmp am (3) Chronic renal failure, stage 3b: Plan: baseline Cr about 1.8 to 2 daily BMP nephrology following - efforts appreciated see above (4) Anemia: Plan: appreciate nephrology management with IV venofer H/H remain stable in the 9-10 range checking SPEP/UPEP because of high sed rate/crp to r/o bone marrow disorders (5) Fall: Plan: b12 level wnl frequent falls at home no dizziness or lightheadedness but does have occasional vertigo and "echo feeling" in his head inner ear issue? neuropathy of legs? other? PT, OT going to [facility] post-d/c due to his complaints of intermittent vertigo and intermittent "echo feeling" in his head send to ENT (6) Chest pain: Plan: chronic has known CAD, but symptoms not c/w ischemia was treated for Miguel's syndrome in 08/2020 musculoskeletal cause suspected - it is very positional in nature and brought on by transferring from chair to bed could consider ct chest if the pain worsens (7) Atrial fibrillation: Plan: remains in NSR cont amiodarone cont eliquis cont beta ruby (8) Ischemic cardiomyopathy: Plan: EF 30-35% (9) Hx of myocardial infarction: (10) History of pulmonary embolus (PE): Plan: eliquis BID (11) Hypokalemia: Plan: resolved bmp am cont supplementation 20meq daily (12) DVT prophylaxis: Plan: eliquis BID (13) Elevated sed rate: Plan: ESR 90s CRP 10 no response to prednisone low-dose earlier this week thus PMR unlikely no symptoms of temporal arteritis robust appetite making malignancy less likely lack of fevers, etc make SBE unlikely other autoimmune disease possible CPK noted to be nl check SPEP/UPEP to r/o underlying bone marrow malignancy had mildly elevated lipase recently - uncertain cause (due to acute/chronic kidney disease??) - repeat level wnl previous imaging of abd/pelvis did not show pancreatic pathology (that was in 04/2020) recheck ESR/CRP in a few days to trend Plan: left message for pt's nephew on voicemail 07/18/21 progressing slowly dispo - [facility] at d/c - Saturday? cont PT/OT Admission and Anticipated Discharge Date Admission Date: July 13, 2021 Subjective tele - NSR overnight similar to prior visits pt was napping in the chair upon arrival easily awakens states he's having an "ok" day a little more energy today breathing is at baseline positional musculoskeletal (presumed) chest pain - which is chronic - unchanged no new complaints eating robustly Review of Systems Review of Systems: gen - no fevers; chronic fatigue CV - no orthopnea; LE edema - baseline pulm - chronic LOREDO; no sob at rest GI - no pain, emesis, diarrhea - voiding difficulty (baseline) Physical Exam Physical Exam: gen - NAD, pleasant, sitting in chair skin - stasis changes b/l legs; wraps in place over lower legs neck - JVD present even at 90 degrees (mild) heart - RRR, s1 s2, 2/6 Systolic murmur LSB lungs - bibasilar dry rales - no change abd - soft NT ND BS+ ext - 2+ edema of b/l legs, pulses 2+ b/l - edema without change Results & Data Results & Data ([facility]) Vital Signs (Past 12 Hours) Vital Signs Temp Pulse Pulse Pulse Resp BP Pulse Ox 07/23/21 02:51 36.6 C 63 16 129/77 93 07/23/21 02:12 84 07/22/21 23:02 36.5 C 62 16 112/66 94 07/22/21 21:48 83 116/72 07/22/21 19:42 36.6 C 80 18 118/68 95 Laboratory Results Laboratory Results - last 24 hr 07/22/21 07/22/21 07/22/21 05:31 05:31 16:45 WBC 10.14 RBC 3.06 L Hgb 9.0 L Hct 29.6 L MCV 96.7 MCH 29.4 MCHC 30.4 L RDW Std Deviation 71.5 H RDW Coeff of Jeff 22.0 H Plt Count 282 MPV 10.2 Sodium 137 Potassium 4.1 Chloride 101 Carbon Dioxide 29 Anion Gap 7.0 BUN 83 H Creatinine 2.48 H Est Cr Clr Drug Dosing 30.6 Est GFR ( Amer) 27.9 Est GFR (Non-Af Amer) 24.1 BUN/Creatinine Ratio 33.6 H Glucose 129 H Calcium 9.6 U Random Total Protein Pending Ur Creatinine mg/dL Pending Protein/Creatinin Ratio Pending Urine Albumin (%) Pending U Xpezc-4-Ozmhrqnf (%) Pending U Wtjxi-9-Wmrwfujf (%) Pending U Beta Globulin (%) Pending U Gamma Globulin (%) Pending U Abnormal Prot Band 1 Pending U Abnormal Prot Band 2 Pending U Abnormal Prot Band 3 Pending Urine PEP Interpret Pending PG Care Time/CCT Total # of Minutes Spent Total Time Spent with Patient: Total time spent is greater than 50% in coordination of care (as documented) at patient's floor/unit and/or counseling patient: Coding Level of Care Code 11962 Subseq Hosp Care Lvl 2 Diagnoses Acute on chronic combined systolic and diastolic CHF (congestive heart failure) I50.43 Acute kidney injury N17.9 Chronic renal failure, stage 3b N18.32 Anemia D64.9 Fall W19.XXXA Chest pain R07.9 Atrial fibrillation I48.19 Atrial fibrillation type: persistent (not longstanding) Ischemic cardiomyopathy I25.5 Hx of myocardial infarction I25.2 History of pulmonary embolus (PE) Z86.711 Hypokalemia E87.6 DVT prophylaxis Z29.9 Elevated sed rate R70.0 (1) Atrial fibrillation Atrial fibrillation type: persistent (not longstanding) Qualified Code(s): I48.19 - Other persistent atrial fibrillation
[2021-07-23] MEDS: METOPROLOL SUCC 50MG EXT REL TAB PO SCH ×2 (07:32→20:50)
[2021-07-23] MEDS: APIXABAN 5 MG TABLET PO SCH ×2 (07:32→20:51)
[2021-07-23] MEDS: POTASSIUM CHLORIDE CRTAB 20 MEQ TABCR PO SCH (07:33)
[2021-07-23] MEDS: OMEGA-3 (PURIFIED FISH OIL) 1 GM CAP PO SCH (07:33)
[2021-07-23] MEDS: MULTIVITAMIN TAB PO SCH (07:33)
[2021-07-23] MEDS: VALSARTAN/SACUBITRIL 26/24MG TAB PO SCH ×2 (07:33→20:50)
[2021-07-23] MEDS: CLOPIDOGREL BISULFATE 75 MG TAB PO SCH (07:34)
[2021-07-23] MEDS: SERTRALINE HCL 50 MG TABLET PO SCH (07:34)
[2021-07-23] MEDS: allopurinoL 300 MG TAB PO SCH (07:34)
[2021-07-23] MEDS: BUMETANIDE 1 MG TAB PO SCH ×2 (07:35→16:51)
[2021-07-23 08:10] LABS: Hematocrit (blood only) 29.8 % (42-52); Hemoglobin 9.4 g/dL (14.0-18.0); Mean Corpuscular Hemoglobin 30.1 pg (25-34); Mean Corpuscular Hgb Conc 31.5 g/dL (32-36); Mean Corpuscular Volume 95.5 fL (80-100); Platelet Count 251 K/uL (130-400); RDW Coefficient of Variation 22.2 % (11.5-14.5); RDW Standard Deviation 72.1 fL (36.4-46.3); Red Blood Count 3.12 M/uL (4.7-6.1); White Blood Count 9.71 K/uL (4.8-10.8)
[2021-07-23 08:39] LABS: BUN Creatinine Ratio 39.6 (10-20); Calcium 9.5 mg/dl (8.5-10.1); Creatinine Clr Calc Pharmacy 37.3 ml/min; Est GFR (African American) 35.6 ml/min; Est GFR (Non-African American) 30.7 ml/min; Potassium 3.7 mmol/L (3.5-5.1)
[2021-07-23 08:44] LABS: Ferritin 558.2 ng/ml (8-388)
--- NOTE | 2021-07-23 09:02 | Nephrology Progress Note ---
Date of Service July 23, 2021 Assessment & Plan (1) Acute on chronic renal insufficiency: Plan: * CIRILO/CKD due to CRS. Cr improved from 3.69 --> 2.03 (Baseline Cr 1.9) * Patient is clinically volume contracted. I&O reveal net -16L since admission. Weight is 5 lbs below outpatient EDW (outpatient EDW 248 lbs). LE swelling due to R heart failure * Continue Bumex to 2 mg po BID * Recommend that staff scientist provide B LE compression wraps daily * Monitor volume status and PRP (2) Ischemic cardiomyopathy: Plan: * BP is acceptable. Kidney function is nearing baseline * Continue Entresto 24/36 mg daily (3) Anemia: Plan: * Iron saturation 11%, Ferritin 558 (07/23/21) * Will schedule IV Venofer * Will redose KENTON today * Awaiting SPEP results Admission and Anticipated Discharge Date Admission Date: July 13, 2021 Subjective Mr. Peterson was evaluated in his hospital room this morning. He is breathing comfortably on RA and notes that LE swelling is mildly improved. He diuresed 2L yesterday. Review of Systems Constitutional: + weakness; no fever Eyes: no problem reported Ear, Nose, Mouth, Throat: no problem reported Respiratory: no dyspnea Cardiovascular: + edema; no chest pain and no palpitations Gastrointestinal: no abdominal pain, no nausea, no vomiting and no diarrhea/loose stools Genitourinary: no dysuria, no urinary hesitancy or no hematuria Musculoskeletal: no back pain Integumentary: no rash Neurologic: no falls, no dizziness and no confusion Physical Exam Constitutional: + overweight; not in distress Eyes: PERRL, conjunctivae normal, anicteric sclerae ENMT: external ear and nose normal, oropharynx normal Neck: trachea midline, no thyromegaly Respiratory: normal respiratory effort, lungs clear to auscultation Cardiovascular: Rate/Rhythm: regular rate and regular rhythm Extremities: + edema (2+ pretibial pitting edema) Gastrointestinal (Abdomen): normal bowel sounds, soft, nontender, no hepatosplenomegaly Neurologic: awake; not confused Results & Data ([facility]) Vital Signs (Past 12 Hours) Vital Signs Temp Pulse Pulse Pulse Resp BP BP 07/23/21 08:00 36.5 C 74 20 110/63 07/23/21 07:11 72 07/23/21 02:51 36.6 C 63 16 129/77 07/23/21 02:12 84 07/22/21 23:02 36.5 C 62 16 112/66 07/22/21 21:48 83 116/72 Pulse Ox 07/23/21 08:00 90 07/23/21 07:11 07/23/21 02:51 93 07/23/21 02:12 07/22/21 23:02 94 07/22/21 21:48 Laboratory Results Laboratory Tests 07/23/21 07:45 WBC 9.71 Hgb 9.4 L Hct 29.8 L Plt Count 251 Laboratory Tests 07/23/21 07:45 Sodium 140 Potassium 3.7 Chloride 103 Carbon Dioxide 26 BUN 80 H Creatinine 2.03 H D Glucose 120 H Calcium 9.5 Transferrin % Sat 11 L Ferritin 558.2 H PG Care Time/CCT Total # of Minutes Spent Total Time Spent with Patient: Total time spent is greater than 50% in coordination of care (as documented) at patient's floor/unit and/or counseling patient: Coding Level of Care Code 71051 Subseq Hosp Care Lvl 3 Diagnoses Acute on chronic renal insufficiency N28.9; N18.9 Ischemic cardiomyopathy I25.5 Anemia D64.9
[2021-07-23] MEDS ORDERED: EPOETIN ALFA 10,000 UNITS/ML VIAL SQ ONE (10:00)
[2021-07-23] MEDS: IRON SUCROSE 200 MG in 0.9 % SODIUM CHLORIDE 100 ML IV SCH (10:33)
[2021-07-23] MEDS: MELATONIN 3 MG TAB PO SCH (20:50)
[2021-07-23] MEDS: AMIODARONE 200 MG TAB PO SCH (20:51)
[2021-07-23] MEDS: COLESTIPOL HCL 1 GM TAB PO SCH (22:50)
--- NOTE | 2021-07-24 00:19 | Hospitalist Progress Note ---
Date of Service July 23, 2021 Assessment & Plan (1) Acute on chronic combined systolic and diastolic CHF (congestive heart failure): Plan: appreciate cardiology & nephrology assistance had been on bumex 4mg BID - Dr Rodrigez lowered dose to 2mg BID due to mild rise in Cr this weekend despite change he continues diuresing LE edema is chronic and at his baseline - thought to have a component of venous insufficiency cont metoprolol cont low-dose Entresto cautiously in light of low BPs BMP in am post-d/c -- follow with Jaye CARTER in [facility]F Clinic (2) Acute kidney injury: Plan: 2nd to #1 - resolved peak Cr 3.69 earlier this admission had improved to about 2 - then adia to 2.48; bumex dose changed from 4mg BID to 2mg BID Cr today back to 2 cont bumex at this dosing bmp am (3) Chronic renal failure, stage 3b: Plan: baseline Cr about 1.8 to 2 see above daily BMP nephrology following - efforts appreciated (4) Anemia: Plan: appreciate nephrology management with IV venofer H/H remain stable in the 9-10 range checking SPEP/UPEP because of high sed rate/crp, severe fatigue, etc to r/o bone marrow disorders (5) Fall: Plan: b12 level wnl frequent falls at home no dizziness or lightheadedness but does have occasional vertigo and "echo feeling" in his head inner ear issue? neuropathy of legs? other? PT, OT going to [facility] post-d/c due to his complaints of intermittent vertigo and intermittent "echo feeling" in his head send to ENT (6) Chest pain: Plan: chronic has known CAD, but symptoms not c/w ischemia was treated for Miguel's syndrome in 08/2020 musculoskeletal cause suspected - it is very positional in nature and brought on by transferring from chair to bed could consider ct chest if the pain worsens (7) Atrial fibrillation: Plan: remains in NSR cont amiodarone cont eliquis cont beta ruby (8) Ischemic cardiomyopathy: Plan: EF 30-35% (9) Hx of myocardial infarction: (10) History of pulmonary embolus (PE): Plan: eliquis BID (11) Hypokalemia: Plan: resolved bmp am cont supplementation 20meq daily (12) DVT prophylaxis: Plan: eliquis BID (13) Elevated sed rate: Plan: ESR 90s CRP 10 no response to prednisone low-dose earlier this week thus PMR unlikely no symptoms of temporal arteritis robust appetite making malignancy less likely lack of fevers, etc make SBE unlikely other autoimmune disease possible CPK noted to be nl check SPEP/UPEP to r/o underlying bone marrow malignancy had mildly elevated lipase recently - uncertain cause (due to acute/chronic kidney disease??) - repeat level wnl previous imaging of abd/pelvis did not show pancreatic pathology (that was in 04/2020) recheck ESR/CRP in a few days to trend (14) Depression: Plan: willing to try new med SSRIs previously did not help start wellbutrin SR 100mg BID consider counseling post-dc or pastoral support (15) Urinary incontinence: Plan: check ua and urine cx - r/o UTI Plan: left message for pt's nephew on voicemail 07/18/21 dispo - [facility] at d/c - Saturday? cont PT/OT Admission and Anticipated Discharge Date Admission Date: July 13, 2021 Subjective patient without any new complaints "still with fatigue" he said he also has been having urinary incontinence denies any change in pulmonary symptoms tele overnight w/ NSR Review of Systems Review of Systems: gen - no fevers; +fatigue; no anorexia CV - positional, musculoskeletal chest discomfort unchanged pulm - no cough; baseline LOREDO GI - no N/V/pain/diarrhea psych - pt admits to feeling depressed; he previously took zoloft -- "it did nothing"; willing to try a new antidepressant Physical Exam Physical Exam: gen - NAD, pleasant, sitting in chair; noted urinary incontinence on gown/floor skin - stasis changes b/l legs; wraps removed today; dried, peeling skin b/l shins but NO open ulcerations or cellulitis neck - minimal JVD present heart - RRR, s1 s2, 2/6 Systolic murmur LSB lungs - decreased BS bases, no rales or wheeze today abd - soft NT ND BS+ ext - 2+ edema of b/l legs, pulses 2+ b/l psych - a/o x 3 Results & Data Results & Data ([facility]) Vital Signs (Past 12 Hours) Vital Signs Temp Pulse Pulse Resp BP Pulse Ox 07/24/21 00:04 36.8 C 68 18 92/56 L 93 07/23/21 19:08 36.9 C 64 18 97/58 L 91 07/23/21 16:37 67 07/23/21 15:36 36.6 C 66 18 95/45 L 93 Laboratory Results Laboratory Results - last 24 hr 07/23/21 07/23/21 07:45 07:45 WBC 9.71 RBC 3.12 L Hgb 9.4 L Hct 29.8 L MCV 95.5 MCH 30.1 MCHC 31.5 L RDW Std Deviation 72.1 H RDW Coeff of Jeff 22.2 H Plt Count 251 MPV 10.0 Sodium 140 Potassium 3.7 Chloride 103 Carbon Dioxide 26 Anion Gap 10.0 BUN 80 H Creatinine 2.03 H D Est Cr Clr Drug Dosing 37.3 Est GFR ( Amer) 35.6 Est GFR (Non-Af Amer) 30.7 BUN/Creatinine Ratio 39.6 H Glucose 120 H Calcium 9.5 Iron 38 Transferrin 251 Transferrin % Sat 11 L Ferritin 558.2 H PG Care Time/CCT Total # of Minutes Spent Total Time Spent with Patient: Total time spent is greater than 50% in coordination of care (as documented) at patient's floor/unit and/or counseling patient: Coding Level of Care Code 39797 Subseq Hosp Care Lvl 3 Diagnoses Acute on chronic combined systolic and diastolic CHF (congestive heart failure) I50.43 Acute kidney injury N17.9 Chronic renal failure, stage 3b N18.32 Anemia D64.9 Fall W19.XXXA Chest pain R07.9 Atrial fibrillation I48.19 Atrial fibrillation type: persistent (not longstanding) Ischemic cardiomyopathy I25.5 Hx of myocardial infarction I25.2 History of pulmonary embolus (PE) Z86.711 Hypokalemia E87.6 DVT prophylaxis Z29.9 Elevated sed rate R70.0 Depression F32.A Urinary incontinence R32 (1) Atrial fibrillation Atrial fibrillation type: persistent (not longstanding) Qualified Code(s): I48.19 - Other persistent atrial fibrillation
[2021-07-24 04:53] LABS: Appearance Urine Clear (Clear); Bilirubin Urine Negative (Negative); Blood Urine Negative (Negative); Color Urine Yellow; Glucose Urine UA Negative (Negative); Ketones Urine Negative (Negative); Leukocyte Esterase Urine Negative (Negative); Nitrite Urine Negative (Negative); Protein Urine Negative (Negative); Specific Gravity Urine 1.009 (1.000-1.030); Urobilinogen Urine Negative (Negative)
[2021-07-24] MEDS: MULTIVITAMIN TAB PO SCH (08:14)
[2021-07-24] MEDS: POTASSIUM CHLORIDE CRTAB 20 MEQ TABCR PO SCH (08:15)
[2021-07-24] MEDS: SERTRALINE HCL 50 MG TABLET PO SCH (08:16)
[2021-07-24] MEDS: CLOPIDOGREL BISULFATE 75 MG TAB PO SCH (08:16)
[2021-07-24] MEDS: allopurinoL 300 MG TAB PO SCH (08:16)
[2021-07-24] MEDS: BUMETANIDE 1 MG TAB PO SCH (08:16)
[2021-07-24] MEDS: VALSARTAN/SACUBITRIL 26/24MG TAB PO SCH (08:17)
[2021-07-24] MEDS: APIXABAN 5 MG TABLET PO SCH (08:17)
[2021-07-24] MEDS: OMEGA-3 (PURIFIED FISH OIL) 1 GM CAP PO SCH (08:17)
[2021-07-24 08:53] LABS: BUN Creatinine Ratio 36.2 (10-20); Calcium 9.2 mg/dl (8.5-10.1); Creatinine Clr Calc Pharmacy 35.3 ml/min; Est GFR (African American) 33.4 ml/min; Est GFR (Non-African American) 28.8 ml/min; Potassium 3.8 mmol/L (3.5-5.1)
[2021-07-24] MEDS ORDERED: buPROPion SR 100 MG TABCR PO SCH (09:00)
[2021-07-24] MEDS: METOPROLOL SUCC 50MG EXT REL TAB PO SCH (09:32)
[2021-07-24] MEDS: IRON SUCROSE 200 MG in 0.9 % SODIUM CHLORIDE 100 ML IV SCH (09:42)
--- NOTE | 2021-07-24 10:06 | Nephrology Progress Note ---
Date of Service July 24, 2021 Assessment & Plan (1) Acute on chronic renal insufficiency: Plan: * CIRILO/CKD due to CRS. Cr improved from 3.69 --> 2.03 (Baseline Cr 1.9) * Patient is clinically volume contracted. I&O reveal net -16L since admission. Weight is 8 lbs below outpatient EDW (outpatient EDW 248 lbs). LE swelling due to R heart failure * Continue Bumex to 2 mg po BID * Recommend that administrative staff supervisor provide B LE compression wraps daily * Monitor volume status and PRP (2) Ischemic cardiomyopathy: Plan: * BP is acceptable. Kidney function is nearing baseline * Continue Entresto 24/36 mg daily (3) Anemia: Plan: * Iron saturation 11%, Ferritin 558 (07/23/21) * Day #2 of 5 IV Venofer * KENTON 10,000 units SQ x1 07/23/21 * Awaiting SPEP/UPEP results Admission and Anticipated Discharge Date Admission Date: July 13, 2021 Subjective Mr. Peterson was evaluated in his hospital room this morning. He is breathing comfortably on RA and notes that LE swelling is mildly improved. He diuresed 830 cc yesterday. Review of Systems Constitutional: + weakness; no fever Eyes: no problem reported Ear, Nose, Mouth, Throat: no problem reported Respiratory: no dyspnea Cardiovascular: + edema; no chest pain and no palpitations Gastrointestinal: no abdominal pain, no nausea, no vomiting and no diarrhea/loose stools Genitourinary: no dysuria, no urinary hesitancy or no hematuria Musculoskeletal: no back pain Integumentary: no rash Neurologic: no falls, no dizziness and no confusion Physical Exam Constitutional: + overweight; not in distress Eyes: PERRL, conjunctivae normal, anicteric sclerae ENMT: external ear and nose normal, oropharynx normal Neck: trachea midline, no thyromegaly Respiratory: normal respiratory effort, lungs clear to auscultation Cardiovascular: Rate/Rhythm: regular rate and regular rhythm Extremities: + edema (1+ pretibial pitting edema) Gastrointestinal (Abdomen): normal bowel sounds, soft, nontender, no hepatosplenomegaly Neurologic: awake; not confused Results & Data ([facility]) Vital Signs (Past 12 Hours) Vital Signs Temp Pulse Pulse Resp BP BP Pulse Ox 07/24/21 09:20 36.3 C L 71 18 93/57 L 90 07/24/21 07:23 70 07/24/21 04:05 36.4 C L 73 18 97/53 L 93 07/24/21 01:31 71 07/24/21 00:04 36.8 C 68 18 92/56 L 93 Laboratory Results Laboratory Tests 07/23/21 07/23/21 07:45 07:45 WBC 9.71 Hgb 9.4 L Hct 29.8 L Plt Count 251 Sodium 140 Potassium 3.7 Chloride 103 Carbon Dioxide 26 BUN 80 H Creatinine 2.03 H D Glucose 120 H Calcium 9.5 Transferrin % Sat 11 L Ferritin 558.2 H PG Care Time/CCT Total # of Minutes Spent Total Time Spent with Patient: Total time spent is greater than 50% in coordination of care (as documented) at patient's floor/unit and/or counseling patient: Coding Level of Care Code 70877 Subseq Hosp Care Lvl 3 Diagnoses Acute on chronic renal insufficiency N28.9; N18.9 Ischemic cardiomyopathy I25.5 Anemia D64.9
--- NOTE | 2021-07-24 11:19 | Cardiology Progress Note ---
Date of Service July 24, 2021 Assessment & Plan (1) Acute systolic heart failure: Plan: 2. Multivessel CAD 3. Paroxysmal atrial fibrillation 4. Chronic renal insufficiency 5. Bilateral venous ulcers, suspected CVI/edema 6. Failure to thrive Stable from a cardiac standpoint. At his recent dry weight. No pulmonary congestion. Lower extremity edema improved. Residual edema likely secondary to chronic venous disease/lymphedema. From a cardiac standpoint okay with discharge to [facility] today -- Continue maintenance Bumex 2 mg BID --Continue current Entresto, Toprol-XL -- Continue amiodarone, eliquis --Continue clopidogrel. Approaching 1 year out from multivessel PCI. Transition to low-dose aspirin as an outpatient. Continue compression stockings. Venous reflux ultrasound at some point as an outpatient. Continued CHF clinic follow-up. Admission and Anticipated Discharge Date Admission Date: July 13, 2021 Subjective Feeling fine today. Still reports just has a lack of energy. Remains down about his long-term situation. -800 yesterday Telemetry reviewed- no events Review of Systems Review of Systems: All systems reviewed & are unremarkable except as noted in HPI & below Physical Exam Physical Exam: General: Comfortable HEENT: Sclerae anicteric Lungs: Lungs clear bilaterally Cardiac: Distant heart sounds, regular, 2/6 holosystolic murmur heard best at the apex Vascular: 2+ radial bilaterally Abdomen: Soft, nontender Extremities: Well perfused, 1+ chronic lower extremity edema - improved from admission. No leakage. Wounds dressed. Neuro: Nonfocal Psych: Alert orient x3, normal affect and mood Results & Data ([facility]) Vital Signs (Past 12 Hours) Vital Signs Temp Pulse Pulse Resp BP BP Pulse Ox 07/24/21 09:20 97.3 F L 71 18 93/57 L 90 07/24/21 07:23 70 07/24/21 04:05 97.5 F L 73 18 97/53 L 93 07/24/21 01:31 71 07/24/21 00:04 98.2 F 68 18 92/56 L 93 PG Care Time/CCT Total # of Minutes Spent Total Time Spent with Patient: Total time spent is greater than 50% in coordination of care (as documented) at patient's floor/unit and/or counseling patient: Coding Level of Care Code 88447 Subseq Hosp Care Lvl 3 Diagnoses Acute systolic heart failure I50.21
--- NOTE | 2021-07-24 16:22 | Discharge Summary ---
Date of Service July 24, 2021 Admission HPI Per Admitting Provider Moisés Peterson is a 76 year old male who presents to the ER with generalized, fatigue, weakness and leg swelling. He is well known to this service with repeated admissions for congestive heart failure. He reports usually he is improved on discharge and rehabilitation helps but then he gets progressively worse and ends back in hospital again. His fluid balance is maintained by the heart failure clinic and he reports being just 4lb over his dry weight at the current time. He legs are swollen and weeping however he reports they are always like this. He denies any current chest pain (although has chronic intermittent chest pain on movements), palpitations, orthopnea or PND. He reports getting slowly progressively worse since his prior discharge in May. In the ER His CXR show mild increased pulmonary edema from prior, BNP 4884 (increased prior after discharge 2163), Cr increased to 3.69 from prior baseline 1.84. He was referred to medicine for admission and ongoing management fo CHF and CIRILO. Principal Diagnosis Lower extremity edema Discharge Exam Constitutional WD/WN, vitals as above Eyes EOM intact bilaterally; no conjunctival abnormality ENMT external ear and nose normal, oropharynx normal Neck trachea midline, no thyromegaly normal visual inspection Respiratory normal respiratory effort, lungs clear to auscultation no respiratory distress Cardiovascular Rate/Rhythm: regular rate and regular rhythm Gastrointestinal (Abdomen) Inspection/Auscultation: abdomen normal to inspection; abdomen not distended Musculoskeletal no cyanosis or clubbing, extremities motor strength 5/5 Skin no rashes, warm and dry Neurologic moves all extremities and awake Psychiatric Orientation: alert, oriented to person and cooperative Discharge Data Allergies Allergy/AdvReac Type Severity Reaction Status Date / Time spironolactone AdvReac Severe Hyperkalemia, Verified 07/11/21 16:06 bradycardia Ccfhjnu-ZWF-EnT Reductase AdvReac Intermediate Myalgias Verified 07/11/21 16:06 Inhibitor [Omsqtpq-Yce-Ahh Reductase Inhibitor] Consultations 07/11/21 14:53 ED Decision to Admit Stat 07/11/21 21:03 Consult Cardiology Routine Consult Nephrology Routine Ordered Studies 07/11/21 19:21 US renal/blad retro comp Routine Hospital Course (1) Acute on chronic combined systolic and diastolic CHF (congestive heart failure): appreciate cardiology & nephrology assistance had been on bumex 4mg BID - Dr Donelan lowered dose to 2mg BID due to mild rise in Cr this weekend despite change he continues diuresing LE edema is chronic and at his baseline - thought to have a component of venous insufficiency - Cont metoprolol - Cont low-dose Entresto cautiously in light of low BPs Post-d/c -- follow with Jaye CARTER in CHF Clinic (2) Acute kidney injury: 2nd to #1 - resolved. peak Cr 3.69 earlier this admission. Cr today back to 2 - Cont Bumex at this dosing (3) Chronic renal failure, stage 3b: baseline Cr about 1.8 to 2 see above daily BMP nephrology following - efforts appreciated (4) Anemia: appreciate nephrology management with IV Venofer H/H remain stable in the 9-10 range checking SPEP/UPEP because of high sed rate/crp, severe fatigue, etc to r/o bone marrow disorders (5) Fall: B12 level wnl frequent falls at home PT, OT going to [facility] post-d/c due to his complaints of intermittent vertigo and intermittent "echo feeling" in his head send to ENT (6) Chest pain: chronic has known CAD, but symptoms not c/w ischemia was treated for Miguel's syndrome in 08/2020 musculoskeletal cause suspected - it is very positional in nature and brought on by transferring from chair to bed (7) Atrial fibrillation: remains in NSR cont amiodarone cont eliquis cont beta ruby (8) Ischemic cardiomyopathy: EF 30-35% (9) Hx of myocardial infarction: (10) History of pulmonary embolus (PE): eliquis BID (11) Hypokalemia: resolved bmp am cont supplementation 20meq daily (12) DVT prophylaxis: eliquis BID (13) Elevated sed rate: ESR 90s CRP 10 no response to prednisone low-dose earlier this week thus PMR unlikely no symptoms of temporal arteritis robust appetite making malignancy less likely lack of fevers, etc make SBE unlikely other autoimmune disease possible CPK noted to be nl check SPEP/UPEP to r/o underlying bone marrow malignancy had mildly elevated lipase recently - uncertain cause (due to acute/chronic kidney disease??) - repeat level wnl previous imaging of abd/pelvis did not show pancreatic pathology (that was in 04/2020) (14) Depression: willing to try new med SSRIs previously did not help start wellbutrin SR 100mg BID consider counseling post-dc or pastoral support (15) Urinary incontinence: check ua and urine cx - r/o UTI Total Time Total Time Spent Total Time Spent (In Minutes): 35 Discharge Plan Discharge Items Patient Disposition: Personal Retirement Reason For Visit: RIGHT SIDED HEART FAILURE Discharge Diagnosis: CHF Activity: Resume your previous activity Non-emergency contact: Primary Care Provider and Manufacturing Finance Manager Call non-emergency contact if: your symptoms worsen Follow-up/Referrals: Sohan Lawler MD [Primary Care Provider] - 08/02/21 1:00 pm (DR VALENCIA) Lee Ann Kennedy PA-C [Physician Staffing Consultant] - 08/01/21 2:00 am (Congestive Heart Failure Program Appointment Information Early follow up is essential to managing your heart failure. An appointment has been scheduled for you with the [facility] Heart [facility] Program within 7 days of discharge. Anticipate this visit to be 30-60 minutes long. Please expect a leaflet or newspaper deliverer phone call from one of our nurses approximately 48 hours from discharge. They will also be placing an order for lab work to be completed 1-2 days prior to your heart failure follow up appointment. Please be sure to have this done so we can go over the results when you come in. Office Location The cardiology office building is located in front of the hospital at [address] Bring the following with you to your follow-up doctor appointments: Please bring your daily weight log any discharge paperwork all of your medication bottles with you to this visit. ) Diet: Heart Healthy and Low Sodium (2gm) Addtl Attending Provider Instructions: Mr. Peterson, You were admitted to the hospital with concern for CHF. We diuresed you and now you are at a stable weight with stable kidney function. Your dry weight per the notes is around 248 lbs which is actually slightly below your present weight. Please follow up with Dr. Rodrigez and Ms. Kennedy to help adjust your diuretic and watch your kidney function. We made a few changes to your medications: 1) Lowered your Bumex dose to 2 mg twice a day 2) Lowered your allopurinol to 100 mg to better suit your kidney function 3) Lowered your Entresto back to the starting dose 4) Started a medication (bupropion) to help with your mood Pending Studies at Discharge: Yes Studies:: Serum and urine proteins Stand-Alone Forms: [facility], Smoking Cessation Skilled Items Patient informed of condition?: No DNR: Yes Discharge Level of Care: Skilled Communicable Disease: No Discharge Prognosis: Stable Lines: None Urinary Catheter: No Medications and DC Order Prescriptions: New Entresto 24-26 mg Tablet 1 tab PO BID Qty: 60 RF: 0 bupropion HCl 100 mg Tablet Sustained-Release 12 Hr 100 mg PO BID Qty: 60 RF: 0 potassium chloride 20 mEq Tablet,Er Particles/Crystals 20 meq PO DAILY Qty: 30 RF: 0 allopurinol 100 mg tablet 100 mg PO DAILY Qty: 30 RF: 0 Continued albuterol sulfate [Ventolin HFA] 90 mcg/actuation HFA aerosol inhaler 2 puff inhalation Q6H PRN (Reason: shortness of breath or wheezing) Qty: 6.7 RF: 0 PreserVision AREDS [id number] ricn-cx-mdel capsule 1 cap PO BID RF: 0 Centrum Silver Men 300-600-300 mcg tablet 1 tab PO QAM RF: 0 omega 3-qzy-jpz-fish oil [Fish Oil] 1,000 mg (120 mg-180 mg) capsule 1 cap PO QAM RF: 0 Eliquis 5 mg tablet 5 mg PO BID Qty: 180 RF: 3 tramadol 50 mg tablet 50 mg PO Q8H PRN (Reason: Pain) RF: 0 amiodarone [Pacerone] 200 mg tablet 200 mg PO HS RF: 0 clopidogrel [Plavix] 75 mg tablet 75 mg PO QAM RF: 0 nitroglycerin [Nitrostat] 0.4 mg tablet, sublingual 0.4 mg SL Q5M PRN (Reason: chest pain) RF: 0 nystatin [Nystop] 100,000 unit/gram Powder 1 applic EXT TID Qty: 30 RF: 1 metoprolol succinate 50 mg capsule,sprinkle,ER 24hr 50 mg PO BID Qty: 60 RF: 5 colestipol [Colestid] 1 gram tablet 2 g PO HS RF: 0 sertraline [Zoloft] 50 mg tablet 50 mg PO QAM RF: 0 Changed bumetanide 2 mg tablet 2 mg PO BID Qty: 120 RF: 2 Discontinued Entresto 97-103 mg tablet 1 tab PO BID RF: 0 allopurinol 300 mg tablet 300 mg PO QAM RF: 0 Discharge Orders: Discharge Order (Routine); Ordered 07/24/21 Ordered By: Laurent Hawk Admission Data Admit Date/Time: 07/13/21 10:52 Attending Provider: Laurent Hawk Admit Provider: Tony Hammond Primary Care Provider: Sohan Lawler Other Providers: Jeffry Peterson ; Latricia Vaughan ; [facility] ; Laurent Hawk Other Interventions: Discharge Summary Assessment (RN) Last Done: 07/24/21 14:48 Coding Level of Care Code D/C DAY MANAGEMENT >30 MINS Diagnoses Acute on chronic combined systolic and diastolic CHF (congestive heart failure) I50.43 Acute kidney injury N17.9 Chronic renal failure, stage 3b N18.32 Anemia D64.9 Fall W19.XXXA Chest pain R07.9 Atrial fibrillation I48.19 Atrial fibrillation type: persistent (not longstanding) Ischemic cardiomyopathy I25.5 Hx of myocardial infarction I25.2 History of pulmonary embolus (PE) Z86.711 Hypokalemia E87.6 DVT prophylaxis Z29.9 Elevated sed rate R70.0 Depression F32.A Urinary incontinence R32
[2021-07-24 17:55] LABS: Alpha 1 Globulin 0.5 g/dL (0.2-0.3); Alpha 2 Globulin 0.9 g/dL (0.5-0.9); Beta-1-Globulin 0.4 g/dL (0.4-0.6); Beta-2-Globulin 0.5 g/dL (0.2-0.5); Gamma Globulin 0.8 g/dL (0.8-1.7); Monoclonal Protein Band 1 DNR g/dL (NONE DETECTED); Monoclonal Protein Band 2 DNR g/dL (NONE DETECTED); Monoclonal Protein Band 3 DNR g/dL (NONE DETECTED); Total Protein 6.1 g/dL (6.1-8.1)
[2021-07-25 15:01] LABS: Creatinine Ur 36 mg/dL (20-320); Protein, Urine Random 6 mg/dL (5-25); Ur Protein/Creat Ratio mg/g 167 mg/g creat (22-128); Urine Abnormal Protein Band 1 DNR mg/dL (NONE DETECTED); Urine Abnormal Protein Band 2 DNR mg/dL (NONE DETECTED); Urine Abnormal Protein Band 3 DNR mg/dL (NONE DETECTED); Urine Protein/Creatinine Ratio 0.167 (0.022-0.128)
== END 2021-07-24 15:51 | disposition home or self-care (01) | DRG 291 ==
LOC: 2N 12:23 → ED 12:23 → SUATTDRO 16:38 → 2N 18:15 → SUATTDRO 07-13 10:52

== ENCOUNTER 2021-07-26 18:35 | Inpatient (IN) ==
--- NOTE | 2021-07-26 19:02 | Emergency Department Note ---
Impression & Plan Fall, Occipital scalp laceration, Hypoxia, Fluid overload ED Provider Note Provider: Gerber Christie MD DATE OF SERVICE: 07/26/2021 CHIEF COMPLAINT: Fall HISTORY OF PRESENT ILLNESS: Patient is a 76-year-old gentleman history of PE on Eliquis, CHF, chronic venous insufficiency, and CAD presenting here today from [facility] where he is currently residing after a fall. Patient states he was just coming back from dinner and was going to sit in a wheelchair. Patient states he neglected to put the brakes in the wheelchair and went to sit down the wheelchair slid out from under him. Patient states he fell backwards landing on his buttocks and striking his head on the ground. Denies loss of consciousness. Complains of some mild pain in the back of the head. Denies any dizziness or visual change. Denies any nausea or vomiting. Denies significant neck pain or injury to the upper extremities. Denies significant back pain. Denies feeling short of breath at this time or injuring his lower extremities. A wound was noted in the back and had there was some bleeding that has since improved prior to arrival. Patient states she was recently hospitalized here in discharged 2 days ago to the facility. REVIEW OF SYSTEMS: A total of 10 review of systems was obtained and negative except as stated above in the HPI. PAST MEDICAL HISTORY: As noted above MEDICATIONS: Reviewed home medications and not on outpatient oxygen SOCIAL HISTORY: Single PHYSICAL EXAM: GENERAL: alert and oriented in no acute distress on stretcher Head: Patient with some dried blood in the posterior occiput with just off of the midline to the right approximately 2cm linear scalp wound. No foreign body noted. EYES: No injection, discharge or icterus. PERRL, EOMI. NECK: Trachea midline. Supple without posterior midline tenderness ENT: Mucous membranes pink and moist. LUNGS: Airway patent. No retractions. Breath sounds clear anteriorly but diminished in the bases HEART: Regular rate and rhythm. No chest wall tenderness ABDOMEN: Soft and non-tender, without guarding or rebound. SKIN: Acyanotic, warm, dry EXTREMITIES: Patient with chronic edema 2+ and stasis of the bilateral lower extremities. No significant tenderness of the arms or legs on gross physical exam NEUROLOGICAL: No focal deficits. No aphasia. No facial droop or slurred speech. Normal strength and tone in the extremities. Sensation to gross touch normal. LACERATION REPAIR: Performed by myself Patient, procedure, and site were verified immediately before the procedure. Appropriate neurovascular exam was performed to test sensation, motor function and perfusion. The skin around the wound was prepped with isopropyl alcohol and pleased with saline gauze. Wound was explored to its base. There was no visible foreign body in the wound. The laceration was repaired by means of a single layer closure. Skin was closed with four michelle in the standard fashion. Total wound length was 2cm. Good hemostasis. Patient tolerated the procedure well. GCS 15 Patient's imaging reviewed. Differential includes Fracture, dislocation, contusion, intra-abdominal, pneumothorax, intrathoracic, intracranial, neurologic, compartment syndrome, rhabdomyolysis, as well as other pathologies. IMPRESSION/MEDICAL DECISION MAKING: Patient awake and alert in no significant distress. Denies any syncopal component to his symptoms or LOC. Seems like a simple mechanical fall backwards. Is on Eliquis. Wound to the back of the head bleeding controlled at this time. No evidence of foreign body. Closed by myself as above with michelle and the patient tolerated this well. CT the head and cervical spine completed to exclude significant traumatic injury. Chest x-ray completed given his fall as well. Patient denies any significant shortness of breath and is satting around 90% on room air initially but quickly drops to high 80s%. No chest wall tenderness concerning for rib fractures. Patient denies URI symptoms or fever or chest pain or abdominal pain or nausea or vomiting. Patient's tetanus is up-to-date. Patient does desat into the high 80s to mid 80s on room air, not normally on oxygen. Chest x-ray report reviewed and images question some pneumonia findings versus viral findings. Covid test negative. Blood work here shows actually improved renal function and BUN compared to previous without significant new l eukocytosis. Question if he is suffering more some fluid overload. Given the new hypoxia feel the need to monitor diuresis with his renal function. Do not feel he is stable to be discharged back home at this time given the oxygen requirement. Given some IV Bumex here. Patient updated and has reported he felt a little bit more fatigued recently and states his medicines may have been mixed up as he just takes was given to them at the facility and is unsure if he has been on his Bumex or not. Hospitalist contacted. DIAGNOSIS: Fall, head laceration, hypoxia, fluid overload DISPOSITION: Seen by hospitalist. Patient was agreeable with this plan. Past Med/Surg History Medical History (Updated 07/27/21 @ 02:34 by Gerber Christie M.D.) Arthritis back, knees Atrial fibrillation New onset a. fib 08/2020 in setting of NSTEMI (which resulted in placement of 3 stents) Bilateral edema of lower extremity Chronic anticoagulation Chronic systolic heart failure Coronary artery disease stent x1 (2006), stents x3 (08/2020) Diastolic CHF Newly diagnosed during 03/2020 admission, responded well to diuretics > disch arged on diuretics and referred to HF clinic per cardiology records Fall from standing Gout of ankle Hx of myocardial infarction 2006, NSTEMI (08/2020 > 3 stents) Ischemic cardiomyopathy Low back pain Lyme disease hx of 2018 Major depressive disorder Obesity Pulmonary embolism 5+ years ago Surgical History History of prostate biopsy S/P coronary artery stent placement stent x1 (2006), stents x3 (08/2020) Family History Family/Other Prostate cancer Father Heart disease Mother Bone cancer Sister Colon cancer Social History Smoking Status: Former smoker Second Hand Exposure: No; Hx Alcohol Use: Yes Alcohol type: wine Hx Substance Use: No Preferred Language: Albanian Communication Ability: Effective Hat Binder Required: No Beliefs That Will Affect Care: None marital status: Single Current Living Situation: Alone current occupational status: retired Feels Safe at Home: Yes Diet Comment: Has special diet unsure what kind Assistive Devices: Cane and Walker Allergies Allergies Allergy/AdvReac Type Severity Reaction Status Date / Time spironolactone AdvReac Severe Hyperkalemia, Verified 07/26/21 19:06 bradycardia Rvznscw-SIH-QkV Reductase AdvReac Intermediate Myalgias Verified 07/26/21 19:06 Inhibitor [Tlqhtis-Wva-Lmw Reductase Inhibitor] Home Meds Home Medications Medication Instructions Recorded Confirmed vitamins A,C,V-nuta-smrhyi 14,320 1 cap PO BID 05/11/19 07/26/21 unit-226 mg-200 unit capsule (PreserVision AREDS) amiodarone 200 mg tablet (Pacerone) 200 mg PO HS 10/06/20 07/26/21 sertraline 50 mg tablet (Zoloft) 50 mg PO QAM 11/14/20 07/26/21 clopidogrel 75 mg tablet (Plavix) 75 mg PO QAM 05/02/21 07/26/21 nitroglycerin 0.4 mg sublingual 0.4 mg SL Q5M PRN 05/02/21 07/26/21 tablet (Nitrostat) tramadol 50 mg tablet 50 mg PO Q6H PRN 05/18/21 07/26/21 colestipol 1 gram tablet (Colestid) 2 g PO QAM tab 07/05/21 07/26/21 tftoaxgm-lgc-zgdkn acid 300 1 tab PO DAILY 07/26/21 07/26/21 mcg-lycopene 600 mcg-lutein 300 mcg tablet (Centrum Silver Men) Previous Rx's Medication Instructions Recorded apixaban 5 mg tablet (Eliquis) 5 mg PO BID #180 tab 03/28/21 metoprolol succinate 50 mg capsule 50 mg PO BID #60 ea 05/13/21 sprinkle, ext. release 24 hr albuterol sulfate 90 mcg/actuation 2 puff INHALATION Q6H PRN #6.7 g 06/26/21 aerosol inhaler (Ventolin HFA) allopurinol 100 mg tablet 100 mg PO DAILY #30 tab 07/24/21 bumetanide 2 mg tablet 2 mg PO BID #120 tab 07/24/21 bupropion HCl 100 mg tablet,12 hr 100 mg PO BID #60 ea 07/24/21 sustained-release potassium chloride 20 mEq 20 meq PO DAILY #30 tab 07/24/21 tablet,extended release(part/cryst) sacubitril 24 mg-valsartan 26 mg 1 tab PO BID #60 tab 07/24/21 tablet (Entresto) Results & Data (ED) Vital Signs Vital Signs - 24 hr 07/26/21 18:35 07/26/21 21:11 Temperature 37.7 C H Temperature Source Oral Pulse Rate 84 Pulse Rate [Right Finger] 74 Respiratory Rate 18 19 Respiratory Effort / Characteristics Non-Labored Spontaneous Respiratory Depth Normal Respiratory Pattern Regular Blood Pressure 122/60 Blood Pressure [Right Arm] 121/60 Blood Pressure Mean 80 Blood Pressure Mean [Right Arm] 80 Blood Pressure Position Sitting Pulse Oximetry 90 99 Oxygen Delivery Method Room Air Nasal Cannula Oxygen Flow Rate 2 Sepsis Recent Fever Within 48 Hours No Sepsis New/Unexplained Change in Mental Status No Sepsis Action Taken by Nursing No Action Required Laboratory Data Result diagrams: 07/26/21 21:17 07/26/21 21:17 Lab Results 07/26/21 07/26/21 07/26/21 Range/Units 20:33 21:17 21:17 WBC 10.43 (4.8-10.8) K/uL RBC 3.11 L (4.7-6.1) M/uL Hgb 9.4 L (14.0-18.0) g/dL Hct 30.2 L (42-52) % MCV 97.1 (80-100) fL MCH 30.2 (25-34) pg MCHC 31.1 L (32-36) g/dL RDW Std Deviation 78.1 H (36.4-46.3) fL RDW Coeff of Jeff 22.6 H (11.5-14.5) % Plt Count 261 (130-400) K/uL MPV 10.1 (7.4-10.4) fL Immature Gran % (Auto) 0.3 % Neut % (Auto) 84.5 % Lymph % (Auto) 9.0 % [place] % (Auto) 4.2 % Eos % (Auto) 1.8 % Baso % (Auto) 0.2 % Neut # (Auto) 8.81 H (1.4-6.5) K/uL Lymph # (Auto) 0.94 L (1.2-3.4) K/uL [place] # (Auto) 0.44 (0.11-0.59) K/uL Eos # (Auto) 0.19 (0-0.5) K/uL Baso # (Auto) 0.02 (0-0.2) K/uL Immature Gran # (Auto) 0.03 H (0.00-0.02) K/uL Anisocytosis Present Ovalocytes 1+ Sodium 139 (136-145) mmol/L Potassium 3.6 (3.5-5.1) mmol/L Chloride 104 (98-107) mmol/L Carbon Dioxide 27 (21-32) mmol/L Anion Gap 9.0 (3-11) BUN 55 H (7-18) mg/dl Creatinine 1.89 H (0.6-1.4) mg/dl Est Cr Clr Drug Dosing 40.7 ml/min Est GFR ( Amer) 38.8 ml/min Est GFR (Non-Af Amer) 33.5 ml/min BUN/Creatinine Ratio 28.9 H (10-20) Glucose 166 H (70-99) mg/dl Calcium 9.1 (8.5-10.1) mg/dl Total Bilirubin 1.0 (0.2-1) mg/dl AST 42 H (15-37) U/L ALT 42 (12-78) U/L Alkaline Phosphatase 388 H (45-117) U/L Troponin I < 0.015 (0-0.045) ng/ml NT-Pro-B Natriuret Pep 5814 H (0-1800) pg/ml Total Protein 7.0 (6.4-8.2) gm/dl Albumin 2.3 L (3.4-5.0) gm/dl Globulin 4.7 H (2.5-4.0) gm/dl Albumin/Globulin Ratio 0.5 L (0.9-2) SARS-CoV-2 (PCR) NEGATIVE (Negative) Administered Medications Discontinued Medications Bumetanide 2 mg/ Syringe 8 mls @ 4 mls/min IV ONE ONE Stop: 07/26/21 22:07 Last Admin: 07/26/21 22:41 Dose: 4 mls/min Documented by: [id number] Imaging Data Radiologist's Impression: Cervical Spine CT 07/26/21 18:[address] DOSE: 1711.87 mGy.cm HISTORY: fall TECHNIQUE: Multiaxial CT images of the cervical spine were performed and reformatted in the sagittal and coronal plane without the use of contrast. A dose lowering technique was utilized adhering to the principles of ALARA. COMPARISON: None. FINDINGS: No fractures. No subluxation. Prevertebral soft tissues and the C1-C2 interval are intact. No pneumothorax. Bony fusion of the C3-T1 vertebral bodies and majority of the facets. This raises the possibility of ankylosing spondylitis. Multifocal patchy airspace opacities within the lung apices consistent with a pneumonia. There is a small left pleural effusion which has improved in the interval. IMPRESSION: 1. No fractures within the cervical spine. 2. Multifocal patchy airspace opacities within the lung apices. This likely represents a viral pneumonia. 3. Small left pleural effusion which is improved. 4. Bony fusion of the C3-T1 levels which may represent ankylosing spondylitis. ACT 112: Negative or not required by law. Electronically signed by: Adebayo Whitehead M.D. 07/26/2021 7:[address] 07/26/21 18:[address] DOSE: HISTORY: fall, hit post head on eliquis TECHNIQUE: Multiaxial CT images of the head were performed without the use of intravenous contrast. Automated exposure control was utilized for this study. A dose lowering technique was utilized adhering to the principles of ALARA. Comparison: Head CT 05/02/2021. Findings: The paranasal sinuses and mastoid air cells are clear. The calvarium and skull base are intact. There is no mass, hematoma, midline shift, acute infarct. White matter hypodensity is nonspecific but suggestive of microvascular ischemic change. The ventricles and sulci demonstrate mild age-related involutional changes. Right posterior scalp swelling with associated scalp laceration skin michelle. Impression: No acute intracranial abnormality. Right posterior scalp injury. ACT 112: Negative or not required by law. Electronically signed by: Adebayo Whitehead M.D. 07/26/2021 7:44 PM Chest X-Ray 07/26/21 18:54 XR chest 1V portable HISTORY: Fall. COMPARISON: Chest 07/11/2021. FINDINGS: No pneumothorax. A small left pleural effusion has slightly improved. A few scattered patchy airspace opacities are seen within the lungs. The heart remains enlarged. There is mild central pulmonary vascular congestion without overt edema. There is nondisplaced left lateral eighth rib fracture. IMPRESSION: 1. Small scattered patchy airspace opacities. This likely represents a pneumonia could be due to a viral process. 2. Cardiomegaly with mild pulmonary vascular congestion. This has improved. 3. Small left pleural effusion has also improved. 4. Nondisplaced left lateral eighth rib fracture. ACT 112: Negative or not required by law. Electronically signed by: Adebayo Whitehead M.D. 07/26/2021 8:23 PM Discharge Plan Visit Data Chief Complaint: Fall Stated Complaint: Fall ED Provider: Gerber Christie Discharge Problem: Fall, Occipital scalp laceration, Hypoxia, Fluid overload Patient Disposition: Admitted As Inpatient Discharge Instructions Interventions: ED Discharge Assessment Last Done: 07/27/21 00:28
--- NOTE | 2021-07-26 19:46 | CT Scan Report ---
HEAD CT NONCONTRAST CT DOSE: HISTORY: fall, hit post head on eliquis TECHNIQUE: Multiaxial CT images of the head were performed without the use of intravenous contrast. A utomated exposure control was utilized for this study. A dose lowering technique was utilized adheri ng to the principles of ALARA. Comparison: Head CT 05/02/2021. Findings: The paranasal sinuses and mastoid air cells are clear. The calvarium and skull base are int act. There is no mass, hematoma, midline shift, acute infarct. White matter hypodensity is nonspecifi c but suggestive of microvascular ischemic change. The ventricles and sulci demonstrate mild age-rela phi involutional changes. Right posterior scalp swelling with associated scalp laceration skin staple s. Impression: No acute intracranial abnormality. Right posterior scalp injury. ACT 112: Negative or not required by law. Electronically signed by: Adebayo Whitehead M.D. 07/26/2021 7:44 PM
--- NOTE | 2021-07-26 19:51 | CT Scan Report ---
CERVICAL SPINE CT CT DOSE: 1711.87 mGy.cm HISTORY: fall TECHNIQUE: Multiaxial CT images of the cervical spine were performed and reformatted in the sagittal and coronal plane without the use of contrast. A dose lowering technique was utilized adhering to th e principles of ALARA. COMPARISON: None. FINDINGS: No fractures. No subluxation. Prevertebral soft tissues and the C1-C2 interval are intact. No pneumothorax. Bony fusion of the C3-T1 vertebral bodies and majority of the facets. This raises th e possibility of ankylosing spondylitis. Multifocal patchy airspace opacities within the lung apices consistent with a pneumonia. There is a small left pleural effusion which has improved in the interva l. IMPRESSION: 1. No fractures within the cervical spine. 2. Multifocal patchy airspace opacities within the lung apices. This likely represents a viral pneumo devika. 3. Small left pleural effusion which is improved. 4. Bony fusion of the C3-T1 levels which may represent ankylosing spondylitis. ACT 112: Negative or not required by law. Electronically signed by: Adebayo Whitehead M.D. 07/26/2021 7:50 PM
--- NOTE | 2021-07-26 20:24 | XRay Report ---
XR chest 1V portable HISTORY: Fall. COMPARISON: Chest 07/11/2021. FINDINGS: No pneumothorax. A small left pleural effusion has slightly improved. A few scattered patch y airspace opacities are seen within the lungs. The heart remains enlarged. There is mild central pul monary vascular congestion without overt edema. There is nondisplaced left lateral eighth rib fractur e. IMPRESSION: 1. Small scattered patchy airspace opacities. This likely represents a pneumonia could be due to a vi ral process. 2. Cardiomegaly with mild pulmonary vascular congestion. This has improved. 3. Small left pleural effusion has also improved. 4. Nondisplaced left lateral eighth rib fracture. ACT 112: Negative or not required by law. Electronically signed by: Adebayo Whitehead M.D. 07/26/2021 8:23 PM
[2021-07-26 21:26] LABS: Basophils # (auto) 0.02 K/uL (0-0.2); Basophils % (auto) 0.2 %; Eosinophils # (auto) 0.19 K/uL (0-0.5); Eosinophils % (auto) 1.8 %; Hematocrit (blood only) 30.2 % (42-52); Hemoglobin 9.4 g/dL (14.0-18.0); Immature Granulocytes # (auto) 0.03 K/uL (0.00-0.02); Immature Granulocytes % (auto) 0.3 %; Lymphocytes # (auto) 0.94 K/uL (1.2-3.4); Mean Corpuscular Hemoglobin 30.2 pg (25-34); Mean Corpuscular Hgb Conc 31.1 g/dL (32-36); Mean Corpuscular Volume 97.1 fL (80-100); Mean Platelet Volume 10.1 fL (7.4-10.4); Monocytes # (auto) 0.44 K/uL (0.11-0.59); Monocytes % (auto) 4.2 %; Neutrophils # (auto) 8.81 K/uL (1.4-6.5); Neutrophils % (auto) 84.5 %; Platelet Count 261 K/uL (130-400); RDW Coefficient of Variation 22.6 % (11.5-14.5); RDW Standard Deviation 78.1 fL (36.4-46.3); Red Blood Count 3.11 M/uL (4.7-6.1); White Blood Count 10.43 K/uL (4.8-10.8)
[2021-07-26 21:43] LABS: Alanine Aminotransferase 42 U/L (12-78); Albumin Level 2.3 gm/dl (3.4-5.0); Aspartate Aminotransferase 42 U/L (15-37); BUN Creatinine Ratio 28.9 (10-20); Blood Urea Nitrogen 55 mg/dl (7-18); Calcium 9.1 mg/dl (8.5-10.1); Carbon Dioxide 27 mmol/L (21-32); Chloride 104 mmol/L (98-107); Creatinine Clr Calc Pharmacy 40.7 ml/min; Est GFR (African American) 38.8 ml/min; Est GFR (Non-African American) 33.5 ml/min; Glucose 166 mg/dl (70-99); Potassium 3.6 mmol/L (3.5-5.1); Sodium 139 mmol/L (136-145)
[2021-07-26 21:47] LABS: Albumin Globulin Ratio 0.5 (0.9-2); Alkaline Phosphatase 388 U/L (45-117); Globulin 4.7 gm/dl (2.5-4.0); NT Pro B Type Natriuretic Pept 5814 pg/ml (0-1800); Troponin I < 0.015 ng/ml (0-0.045)
[2021-07-26 21:48] LABS: Anisocytosis Present; Ovalocytes 1+
[2021-07-26] MEDS ORDERED: BUMETANIDE 2 MG in SYRINGE 0 ML IV ONE (22:06)
--- NOTE | 2021-07-26 23:41 | History & Physical Report ---
Date of Service July 26, 2021 Assessment & Plan (1) Acute on chronic combined systolic and diastolic CHF (congestive heart failure): Plan: Acute on chronic combined systolic and diastolic CHF/CAD/hypertension/atrial fibrillation/status post PTCA and coronary artery stent placement/history of NC- Received Bumex 2 mg IV in ED Continue Bumex 2 mg IV twice daily for now. Continue apixaban, clopidogrel, metoprolol succinate, subglottic westerns, potassium chloride, Entresto. This was not the cause of his fall, but likely occurred as a result of the fall and stress (2) Occipital scalp laceration: Plan: Occipital scalp laceration status post mechanical fall Local wound care (3) Hypoxia: Plan: Hypoxia secondary to #1 Continue nasal cannula oxygen, titrate to keep pulse ox 90 to 94% (4) History of pulmonary embolus (PE): Plan: Continue apixaban (5) Hx of myocardial infarction: Plan: See above (6) Chronic renal failure, stage 3b: Plan: Creatinine 1.89 upon admission, with range 1.67-2.93 Continue to follow closely while diuresing (7) Atrial fibrillation: Plan: See above (8) CAD S/P percutaneous coronary angioplasty: Plan: See above History of Present Illness Chief Complaint: The patient reports that while at [facility] he was coming back from eating, with attempted to get up out of his wheelchair, did not put the brakes on a wheelchair, and when he went to stand the wheelchair went backwards and he fell backwards hitting the back of his head. Primary Care Provider: NO PCP The patient is a 76-year-old male with a past medical history including urinary incontinence, depression, pulmonary embolism, myocardial infarction, CKD stage IIIb, acute on chronic combined systolic and diastolic CHF, bilateral lower extremity edema, first-degree AV block, IVCD, history of pericarditis, atrial fibrillation, gout, CAD status post PTCA with stent placement, ischemic cardiomyopathy, major depressive disorder and arthritis. The patient was most recently admitted to [facility] from 07/11-07/24 for CHF, and upon returning to the ED this evening after falling and hitting his head, he was found to be in recurrent CHF, and was given Bumex 2 mg IV by the ED. Allergies Allergy/AdvReac Type Severity Reaction Status Date / Time spironolactone AdvReac Severe Hyperkalemia, Verified 07/26/21 19:06 bradycardia Zbtilsk-ZZQ-SjY Reductase AdvReac Intermediate Myalgias Verified 07/26/21 19:06 Inhibitor [Nfwwydf-Ugs-Roi Reductase Inhibitor] Home Medications Medication Instructions Recorded Confirmed Type vitamins A,C,U-kbbk-gnfyfx 14,320 1 cap PO BID 05/11/19 07/26/21 History unit-226 mg-200 unit capsule (PreserVision AREDS) amiodarone 200 mg tablet (Pacerone) 200 mg PO HS 10/06/20 07/26/21 History sertraline 50 mg tablet (Zoloft) 50 mg PO QAM 11/14/20 07/26/21 History apixaban 5 mg tablet (Eliquis) 5 mg PO BID #180 tab 03/28/21 07/26/21 Rx clopidogrel 75 mg tablet (Plavix) 75 mg PO QAM 05/02/21 07/26/21 History nitroglycerin 0.4 mg sublingual 0.4 mg SL Q5M PRN 05/02/21 07/26/21 History tablet (Nitrostat) metoprolol succinate 50 mg capsule 50 mg PO BID #60 ea 05/13/21 07/26/21 Rx sprinkle, ext. release 24 hr tramadol 50 mg tablet 50 mg PO Q6H PRN 05/18/21 07/26/21 History albuterol sulfate 90 mcg/actuation 2 puff INHALATION Q6H PRN #6.7 g 06/26/21 07/26/21 Rx aerosol inhaler (Ventolin HFA) colestipol 1 gram tablet (Colestid) 2 g PO QAM tab 07/05/21 07/26/21 History allopurinol 100 mg tablet 100 mg PO DAILY #30 tab 07/24/21 07/26/21 Rx bumetanide 2 mg tablet 2 mg PO BID #120 tab 07/24/21 07/26/21 Rx bupropion HCl 100 mg tablet,12 hr 100 mg PO BID #60 ea 07/24/21 07/26/21 Rx sustained-release potassium chloride 20 mEq 20 meq PO DAILY #30 tab 07/24/21 07/26/21 Rx tablet,extended release(part/cryst) sacubitril 24 mg-valsartan 26 mg 1 tab PO BID #60 tab 07/24/21 07/26/21 Rx tablet (Entresto) cfkgrqqz-hht-lpxfe acid 300 1 tab PO DAILY 07/26/21 07/26/21 History mcg-lycopene 600 mcg-lutein 300 mcg tablet (Centrum Silver Men) Past Med/Surg History Medical History (Updated 07/27/21 @ 02:34 by Gerber Christie M.D.) Arthritis back, knees Atrial fibrillation New onset a. fib 08/2020 in setting of NSTEMI (which resulted in placement of 3 stents) Bilateral edema of lower extremity Chronic anticoagulation Chronic systolic heart failure Coronary artery disease stent x1 (2006), stents x3 (08/2020) Diastolic CHF Newly diagnosed during 03/2020 admission, responded well to diuretics > discharged on diuretics and referred to HF clinic per cardiology records Fall from standing Gout of ankle Hx of myocardial infarction 2006, NSTEMI (08/2020 > 3 stents) Ischemic cardiomyopathy Low back pain Lyme disease hx of 2018 Major depressive disorder Obesity Pulmonary embolism 5+ years ago Surgical History History of prostate biopsy S/P coronary artery stent placement stent x1 (2006), stents x3 (08/2020) Family History Family/Other Prostate cancer Father Heart disease Mother Bone cancer Sister Colon cancer Social History Smoking Status: Former smoker Second Hand Exposure: No; Hx Alcohol Use: Yes Alcohol type: wine Hx Substance Use: No Preferred Language: French Communication Ability: Effective Plexiglas Former Required: No Beliefs That Will Affect Care: None marital status: Single Current Living Situation: Alone current occupational status: retired Feels Safe at Home: Yes Diet Comment: Has special diet unsure what kind Assistive Devices: Cane and Walker Review of Systems Review of Systems: The patient denies chest pain, palpitations, cough, sore throat, fevers, chills, sweats, nausea, vomiting, diarrhea , constipation, abdominal pain, pelvic pain, blood in urine or stool, dysuria, urinary frequency or urgency, loss of consciousness, rash, focal weakness, numbness or tingling in arms or legs, generalized arthralgias or myalgias, back or neck pain, or night sweats. The review of systems is otherwise negative other than for that already noted above, and at least 10 systems have been reviewed. Physical Exam Physical Exam: The patient is awake, alert and oriented 3, laceration on occiput, lying in bed and in no acute distress. HEENT--PERRL, EOMI, mucous membranes and oropharynx Neck--supple. No JVD. No bruits. Thyroid normal, trachea midline, no adenopathy. Heart--normal S1 and S2. No murmurs, rubs or gallops. Lungs--crackles at the bases bilaterally. No respiratory distress, no accessory muscle use. Abdomen--normal bowel sounds and soft. Nontender. Nondistended. Morbidly obese Extremities--1+ bilateral pretibial pitting edema. Dermatologic--as noted above Neurologic--cranial nerves II through XII grossly intact. Rheumatologic--normal range of motion. Psychiatric--normal affect. Results & Data Results & Data ([facility]) Vital Signs (Past 12 Hours) Vital Signs Temp Pulse Pulse Resp BP BP Pulse Ox 07/26/21 21:11 74 19 121/60 99 07/26/21 18:35 37.7 C H 84 18 122/60 90 Laboratory Results Laboratory Results WBC 10.43 K/uL (4.8-10.8) 07/26/21 21: RBC 3.11 M/uL (4.7-6.1) L 07/26/21 21:17 Hgb 9.4 g/dL (14.0-18.0) L 07/26/21 21: Hct 30.2 % (42-52) L 07/26/21 21:17 MCV 97.1 fL (80-100) 07/26/21 21:17 MCH 30.2 pg (25-34) 07/26/21 21: MCHC 31.1 g/dL (32-36) L 07/26/21 21:17 RDW Std Deviation 78.1 fL (36.4-46.3) H 07/26/21 21:17 RDW Coeff of Jeff 22.6 % (11.5-14.5) H 07/26/21 21: Plt Count 261 K/uL (130-400) 07/26/21 21:17 MPV 10.1 fL (7.4-10.4) 07/26/21 21:17 Immature Gran % (Auto) 0.3 % 07/26/21 21:17 Neut % (Auto) 84.5 % 07/26/21 21:17 Lymph % (Auto) 9.0 % 07/26/21 21:17 [place] % (Auto) 4.2 % 07/26/21 21:17 Eos % (Auto) 1.8 % 07/26/21 21:17 Baso % (Auto) 0.2 % 07/26/21 21:17 Neut # (Auto) 8.81 K/uL (1.4-6.5) H 07/26/21 21:17 Lymph # (Auto) 0.94 K/uL (1.2-3.4) L 07/26/21 21:17 [place] # (Auto) 0.44 K/uL (0.11-0.59) 07/26/21 21:17 Eos # (Auto) 0.19 K/uL (0-0.5) 07/26/21 21:17 Baso # (Auto) 0.02 K/uL (0-0.2) 07/26/21 21:17 Immature Gran # (Auto) 0.03 K/uL (0.00-0.02) H 07/26/21 21:17 Anisocytosis Present 07/26/21 21:17 Ovalocytes 1+ 07/26/21 21:17 Sodium 139 mmol/L (136-145) 07/26/21 21:17 Potassium 3.6 mmol/L (3.5-5.1) 07/26/21 21:17 Chloride 104 mmol/L (98-107) 07/26/21 21:17 Carbon Dioxide 27 mmol/L (21-32) 07/26/21 21:17 Anion Gap 9.0 (3-11) 07/26/21 21:17 BUN 55 mg/dl (7-18) H 07/26/21 21:17 Creatinine 1.89 mg/dl (0.6-1.4) H 07/26/21 21:17 Est Cr Clr Drug Dosing 40.7 ml/min 07/26/21 21:17 Est GFR ( Amer) 38.8 ml/min 07/26/21 21:17 Est GFR (Non-Af Amer) 33.5 ml/min 07/26/21 21:17 BUN/Creatinine Ratio 28.9 (10-20) H 07/26/21 21:17 Glucose 166 mg/dl (70-99) H 07/26/21 21:17 Calcium 9.1 mg/dl (8.5-10.1) 07/26/21 21:17 Total Bilirubin 1.0 mg/dl (0.2-1) 07/26/21 21:17 AST 42 U/L (15-37) H 07/26/21 21:17 ALT 42 U/L (12-78) 07/26/21 21:17 Alkaline Phosphatase 388 U/L (45-117) H 07/26/21 21:17 Troponin I < 0.015 ng/ml (0-0.045) 07/26/21 21:17 NT-Pro-B Natriuret Pep 5814 pg/ml (0-1800) H 07/26/21 21:17 Total Protein 7.0 gm/dl (6.4-8.2) 07/26/21 21:17 Albumin 2.3 gm/dl (3.4-5.0) L 07/26/21 21:17 Globulin 4.7 gm/dl (2.5-4.0) H 07/26/21 21:17 Albumin/Globulin Ratio 0.5 (0.9-2) L 07/26/21 21:17 SARS-CoV-2 (PCR) NEGATIVE (Negative) 07/26/21 20:[address] 07/26/21 18:[address] DOSE: 1711.87 mGy.cm HISTORY: fall TECHNIQUE: Multiaxial CT images of the cervical spine were performed and reformatted in the sagittal and coronal plane without the use of contrast. A dose lowering technique was utilized adhering to the principles of ALARA. COMPARISON: None. FINDINGS: No fractures. No subluxation. Prevertebral soft tissues and the C1-C2 interval are intact. No pneumothorax. Bony fusion of the C3-T1 vertebral bodies and majority of the facets. This raises the possibility of ankylosing spondylitis. Multifocal patchy airspace opacities within the lung apices consistent with a pneumonia. There is a small left pleural effusion which has improved in the interval. IMPRESSION: 1. No fractures within the cervical spine. 2. Multifocal patchy airspace opacities within the lung apices. This likely represents a viral pneumonia. 3. Small left pleural effusion which is improved. 4. Bony fusion of the C3-T1 levels which may represent ankylosing spondylitis. ACT 112: Negative or not required by law. Electronically signed by: Adebayo Whitehead M.D. 07/26/2021 7:[address] 07/26/21 18:[address] DOSE: HISTORY: fall, hit post head on eliquis TECHNIQUE: Multiaxial CT images of the head were performed without the use of intravenous contrast. Automated exposure control was utilized for this study. A dose lowering technique was utilized adhering to the principles of ALARA. Comparison: Head CT 05/02/2021. Findings: The paranasal sinuses and mastoid air cells are clear. The calvarium and skull base are intact. There is no mass, hematoma, midline shift, acute infa rct. White matter hypodensity is nonspecific but suggestive of microvascular ischemic change. The ventricles and sulci demonstrate mild age-related involutional changes. Right posterior scalp swelling with associated scalp laceration skin michelle. Impression: No acute intracranial abnormality. Right posterior scalp injury. ACT 112: Negative or not required by law. Electronically signed by: Adebayo Whitehead M.D. 07/26/2021 7:44 PM Chest X-Ray 07/26/21 18:54 XR chest 1V portable HISTORY: Fall. COMPARISON: Chest 07/11/2021. FINDINGS: No pneumothorax. A small left pleural effusion has slightly improved. A few scattered patchy airspace opacities are seen within the lungs. The heart remains enlarged. There is mild central pulmonary vascular congestion without overt edema. There is nondisplaced left lateral eighth rib fracture. IMPRESSION: 1. Small scattered patchy airspace opacities. This likely represents a pneumonia could be due to a viral process. 2. Cardiomegaly with mild pulmonary vascular congestion. This has improved. 3. Small left pleural effusion has also improved. 4. Nondisplaced left lateral eighth rib fracture. ACT 112: Negative or not required by law. Electronically signed by: Adebayo Whitehead M.D. 07/26/2021 8:23 PM Code Status & VTE Plan Code Status Full code VTE Prophylaxis Plan VTE Prophylaxis will be ordered: Yes PG Care Time/CCT Total # of Minutes Spent Total Time Spent with Patient: Total time spent is greater than 50% in coordination of care (as documented) at patient's floor/unit and/or counseling patient: Coding Level of Care Code 34627 Initial Inpt Care Lvl 3 Diagnoses Acute on chronic combined systolic and diastolic CHF (congestive heart failure) I50.43 Occipital scalp laceration S01.01XA Encounter type: initial encounter Hypoxia R09.02 History of pulmonary embolus (PE) Z86.711 Hx of myocardial infarction I25.2 Chronic renal failure, stage 3b N18.32 Atrial fibrillation I48.19 Atrial fibrillation type: persistent (not longstanding) CAD S/P percutaneous coronary angioplasty I25.10; Z98.61 (1) Occipital scalp laceration Encounter type: initial encounter Qualified Code(s): S01.01XA - Laceration without foreign body of scalp, initial encounter (2) Atrial fibrillation Atrial fibrillation type: persistent (not longstanding) Qualified Code(s): I48.19 - Other persistent atrial fibrillation
[2021-07-27] MEDS ORDERED: ONDANSETRON INJ 2 MG/ML 2 ML VIAL IV PRN (00:26)
[2021-07-27] MEDS ORDERED: NITROGLYCERIN SL 0.4 MG/TAB TAB SL PRN (00:26)
[2021-07-27] MEDS ORDERED: traMADol HCL 50 MG TABLET PO PRN (00:26)
[2021-07-27] MEDS ORDERED: ACETAMINOPHEN 325 MG TAB PO PRN (00:26)
[2021-07-27] MEDS: buPROPion SR 100 MG TABCR PO SCH ×3 (02:34→20:59)
[2021-07-27] MEDS: POTASSIUM CHLORIDE CRTAB 20 MEQ TABCR PO SCH ×3 (02:35→20:59)
[2021-07-27] MEDS: METOPROLOL SUCC 50MG EXT REL TAB PO SCH ×3 (02:36→21:00)
[2021-07-27] MEDS: APIXABAN 5 MG TABLET PO SCH ×3 (02:37→21:00)
[2021-07-27 07:23] LABS: Basophils # (auto) 0.02 K/uL (0-0.2); Basophils % (auto) 0.2 %; Eosinophils # (auto) 0.18 K/uL (0-0.5); Eosinophils % (auto) 1.9 %; Hematocrit (blood only) 29.3 % (42-52); Hemoglobin 9.1 g/dL (14.0-18.0); Immature Granulocytes # (auto) 0.01 K/uL (0.00-0.02); Immature Granulocytes % (auto) 0.1 %; Lymphocytes # (auto) 0.58 K/uL (1.2-3.4); Lymphocytes % (auto) 6.1 %; Mean Corpuscular Hgb Conc 31.1 g/dL (32-36); Mean Corpuscular Volume 96.7 fL (80-100); Mean Platelet Volume 9.9 fL (7.4-10.4); Monocytes # (auto) 0.84 K/uL (0.11-0.59); Monocytes % (auto) 8.8 %; Neutrophils # (auto) 7.88 K/uL (1.4-6.5); Neutrophils % (auto) 82.9 %; Platelet Count 264 K/uL (130-400); RDW Coefficient of Variation 22.4 % (11.5-14.5); RDW Standard Deviation 77.3 fL (36.4-46.3); Red Blood Count 3.03 M/uL (4.7-6.1); White Blood Count 9.51 K/uL (4.8-10.8)
[2021-07-27 07:42] LABS: Albumin Level 2.3 gm/dl (3.4-5.0); BUN Creatinine Ratio 28.3 (10-20); Calcium 8.9 mg/dl (8.5-10.1); Creatinine Clr Calc Pharmacy 44.8 ml/min; Est GFR (African American) 43.8 ml/min; Est GFR (Non-African American) 37.8 ml/min; Potassium 3.6 mmol/L (3.5-5.1)
[2021-07-27 07:45] LABS: Albumin Globulin Ratio 0.5 (0.9-2); Bilirubin,Total 1.1 mg/dl (0.2-1); Globulin 4.4 gm/dl (2.5-4.0); Magnesium 1.2 mg/dl (1.8-2.4); Total Protein 6.7 gm/dl (6.4-8.2)
[2021-07-27 07:49] LABS: Anisocytosis Present
[2021-07-27] MEDS: allopurinoL 100 MG TAB PO SCH (08:33)
[2021-07-27] MEDS: VALSARTAN/SACUBITRIL 26/24MG TAB PO SCH ×2 (08:33→20:59)
[2021-07-27] MEDS: SERTRALINE HCL 50 MG TABLET PO SCH (08:33)
[2021-07-27] MEDS: CLOPIDOGREL BISULFATE 75 MG TAB PO SCH (08:33)
[2021-07-27] MEDS ORDERED: ALBUTEROL HFA 8 GM INHALER INH PRN (08:44)
[2021-07-27] MEDS ORDERED: VANCOMYCIN CONSULT ACTIVE PRN ×2 (08:53)
[2021-07-27] MEDS ORDERED: BUMETANIDE 2 MG in SYRINGE 0 ML IV SCH (09:00)
[2021-07-27] MEDS ORDERED: VANCOMYCIN HCL 1 MG in SODIUM CHLORIDE 0.9% 250 ML IV SCH (09:00)
[2021-07-27] MEDS ORDERED: CEROVITE ADV FORMULA TAB PO SCH (09:00)
[2021-07-27] MEDS ORDERED: VANCOMYCIN HCL 2,750 MG in SODIUM CHLORIDE 0.9% 500 ML IV SCH (09:30)
--- NOTE | 2021-07-27 09:33 | Hospitalist Progress Note ---
Date of Service July 27, 2021 Assessment & Plan (1) Acute on chronic combined systolic and diastolic CHF (congestive heart failure): Plan: Acute on chronic combined systolic and diastolic CHF/CAD/hypertension/atrial fibrillation/status post PTCA and coronary artery stent placement/history of NH- HFrEF Received Bumex 2 mg IV in ED Continue Bumex 2 mg IV twice daily for now. Continue apixaban, clopidogrel, metoprolol succinate, Plavix, Amiodarone, potassium chloride, Entresto. This was not the cause of his fall, but likely occurred as a result of the fall and stress - Again agree this is not an acute exacerbation of his heart failure - Continue with low sodium diet - diuresed as above - Patient does not elevate feet at night but spends most of his day in wheel chair or sitting on the edge of his bed (2) Occipital scalp laceration: Plan: Occipital scalp laceration status post mechanical fall Local wound care - Well healing without hematoma or signs of infection (3) Hypoxia: Plan: Hypoxia without respiratory failure - ? MRSA pneumonia vs. Viral vs. poor inspirator effort with rib fracture - No WBC, Cough without sputum production Continue nasal cannula oxygen, titrate to keep pulse ox 90 to 94% - Continue inhalers (4) History of pulmonary embolus (PE): Plan: Continue apixaban (5) Hx of myocardial infarction: Plan: See above (6) Chronic renal failure, stage 3b: Plan: Creatinine 1.89 upon admission, with range 1.67-2.93 Continue to follow closely while diuresing - Imprvoed today- continue to monitor (7) Atrial fibrillation: Plan: See above -Continue ammiodarone and apixaban (8) CAD S/P percutaneous coronary angioplasty: Plan: See above Admission and Anticipated Discharge Date Admission Date: July 26, 2021 Subjective Patient sitting up on edge of the bed this morning with minimal conversational dyspnea. Legs remain edematous. MRSA swab positive today- source of pulmonary vs. lower extremities. Will start on Vancomycin IV. He will has received one more dose of IV BUMEX this mornig, and will transition back to his oral 2mg B UMEX this evening. Difficult to ascertain how much he has put out overnight secondary to not output charted, but overall his symptoms are improved. he feels he is getting around better from bed to standing, but still does endorse dyspnea with this. Will place on contact precautions for his +MRSA swab. Follow clinically if improved may likely be able to be discharged in the next 1- 2 days. Review of Systems Review of Systems: REVIEW OF SYSTEMS: Constitutional: No fever, sweats or chills Eyes: No diplopia, no worsening or blurred vision ENT: normal hearing, no trouble swallowing Respiratory: (+) cough, dyspnea at rest, NO sputum, or dyspnea on exertion Cardiovascular: (+) lower extremity edema and venous congestion, No chest pain, tightness or palpitations Abdomen: No pain, nausea, vomiting, diarrhea or constipation Musculoskeletal: No joint pain, calf pain, swelling Neurologic: No weakness, numbness/tingling, or balance problems Psychiatric: No anxiety or depression Skin: No rash or itch Physical Exam Physical Exam: PHYSICAL EXAM: General: awake, alert, no apparent distress Head: Normocephalic, midline stapled incision to back of the head- intact ENT: PERRL, EOMI, no pharyngeal exudate, mucous membranes moist Neuro: AAO x 3, speech clear and appropriate, strength intact bilaterally 5/5, sensation intact and equal all extremities and dermatomes, no pronator drift Chest: equal rise and fall of the chest, no accessory muscle use, no heaves or thrills, scattered crackles throughout decreased in the bases, on 2LNC, Cardiac: irregular rate and rhythm, telemetry reviewed- no acute events, skin warm dry, cap refill <3 seconds, peripheral pulses +2 no JVD, no murmur, bilateral +3 edema with venous congestion and ulcerations GI: NABS x 4 quadrants, soft, nontender to palpation, no rebound, guarding or tenderness : Spontaneously voiding, no pain, no CVA tenderness, Extremities: Normal inspection, no peripheral edema or erythema, calfs nontender to palpation Psych: Normal mood and affect Skin: As above for lower extremities, no other rash or erythema Results & Data Results & Data ([facility]) Vital Signs (Past 12 Hours) Vital Signs Pulse Pulse Resp BP BP Pulse Ox Pulse Ox 07/27/21 06:12 97 07/27/21 05:46 70 17 114/61 94 07/27/21 02:49 76 18 111/56 L 97 07/27/21 00:28 70 19 130/75 94 07/26/21 23:50 83 19 107/64 96 Laboratory Results Abnormal lab results 07/26/21 07/26/21 07/27/21 Range/Units 21:17 21:17 07:08 RBC 3.11 L 3.03 L (4.7-6.1) M/uL Hgb 9.4 L 9.1 L (14.0-18.0) g/dL Hct 30.2 L 29.3 L (42-52) % MCHC 31.1 L 31.1 L (32-36) g/dL RDW Std Deviation 78.1 H 77.3 H (36.4-46.3) fL RDW Coeff of Jeff 22.6 H 22.4 H (11.5-14.5) % Neut # (Auto) 8.81 H 7.88 H (1.4-6.5) K/uL Lymph # (Auto) 0.94 L 0.58 L (1.2-3.4) K/uL [place] # (Auto) 0.84 H (0.11-0.59) K/uL Immature Gran # (Auto) 0.03 H (0.00-0.02) K/uL BUN 55 H (7-18) mg/dl Creatinine 1.89 H (0.6-1.4) mg/dl BUN/Creatinine Ratio 28.9 H (10-20) Glucose 166 H (70-99) mg/dl POC Glucose (70-99) mg/dl Magnesium (1.8-2.4) mg/dl Total Bilirubin (0.2-1) mg/dl AST 42 H (15-37) U/L Alkaline Phosphatase 388 H (45-117) U/L NT-Pro-B Natriuret Pep 5814 H (0-1800) pg/ml Albumin 2.3 L (3.4-5.0) gm/dl Globulin 4.7 H (2.5-4.0) gm/dl Albumin/Globulin Ratio 0.5 L (0.9-2) Nasal Screen MRSA (PCR) (Negative) 07/27/21 07/27/21 07/27/21 Range/Units 07:08 07:12 07:21 RBC (4.7-6.1) M/uL Hgb (14.0-18.0) g/dL Hct (42-52) % MCHC (32-36) g/dL RDW Std Deviation (36.4-46.3) fL RDW Coeff of Jeff (11.5-14.5) % Neut # (Auto) (1.4-6.5) K/uL Lymph # (Auto) (1.2-3.4) K/uL [place] # (Auto) (0.11-0.59) K/uL Immature Gran # (Auto) (0.00-0.02) K/uL BUN 48 H (7-18) mg/dl Creatinine 1.71 H (0.6-1.4) mg/dl BUN/Creatinine Ratio 28.3 H (10-20) Glucose 126 H (70-99) mg/dl POC Glucose 126 H (70-99) mg/dl Magnesium 1.2 L (1.8-2.4) mg/dl Total Bilirubin 1.1 H (0.2-1) mg/dl AST (15-37) U/L Alkaline Phosphatase 337 H (45-117) U/L NT-Pro-B Natriuret Pep (0-1800) pg/ml Albumin 2.3 L (3.4-5.0) gm/dl Globulin 4.4 H (2.5-4.0) gm/dl Albumin/Globulin Ratio 0.5 L (0.9-2) Nasal Screen MRSA (PCR) Positive A (Negative) Medications Administered Allopurinol (Allopurinol 100 Mg Tab) 100 mg PO DAILY [place] Stop: 08/26/21 08:59 Last Admin: 07/27/21 08:33 Dose: 100 mg Documented by: [id number] Apixaban (Apixaban 5 Mg Tablet) 5 mg PO BID [place] Stop: 08/26/21 00:25 Last Admin: 07/27/21 08:32 Dose: 5 mg Documented by: [id number] Admin: 07/27/21 02:37 Dose: 5 mg Documented by: [id number] Bupropion HCl (Bupropion Sr 100 Mg Tabcr) 100 mg PO BID [place] Stop: 08/26/21 00:25 Last Admin: 07/27/21 08:32 Dose: 100 mg Documented by: [id number] Admin: 07/27/21 02:34 Dose: 100 mg Documented by: [id number] Clopidogrel Bisulfate (Clopidogrel Bisulfate 75 Mg Tab) 75 mg PO QAM [place] Stop: 08/26/21 08:59 Last Admin: 07/27/21 08:33 Dose: 75 mg Documented by: [id number] Colestipol HCl (Colestipol Hcl 1 Gm Tab) 2 gm PO DAILY@1000 [place] Stop: 08/26/21 09:59 Last Admin: 07/27/21 11:05 Dose: 2 gm Documented by: [id number] Bumetanide 2 mg/ Syringe 8 mls @ 4 mls/min IV BID@0900,1700 [place] Stop: 08/26/21 08:59 Last Admin: 07/27/21 08:33 Dose: 4 mls/min Documented by: [id number] Vancomycin HCl 2,750 mg/ (Sodium Chloride) 555 mls @ 180 mls/hr IV TODAY@0930 [facility] Stop: 07/27/21 12:34 Last Admin: 07/27/21 10:20 Dose: 180 mls/hr Documented by: [id number] Metoprolol Succinate (Metoprolol Succ 50mg Ext Rel Tab) 50 mg PO BID [facility] Stop: 08/26/21 00:25 Last Admin: 07/27/21 08:32 Dose: 50 mg Documented by: [id number] Admin: 07/27/21 02:36 Dose: 50 mg Documented by: [id number] Multivitamins/Minerals (Cerovite Adv Formula Tab) 1 tab PO DAILY [place] Stop: 08/26/21 08:59 Last Admin: 07/27/21 08:33 Dose: 1 tab Documented by: [id number] Potassium Chloride (Potassium Chloride Crtab 20 Meq Tabcr) 20 meq PO BID [place] Stop: 08/26/21 00:25 Last Admin: 07/27/21 08:32 Dose: 20 meq Documented by: [id number] Admin: 07/27/21 02:35 Dose: 20 meq Documented by: [id number] Sacubitril/Valsartan (Valsartan/Sacubitril 26/24mg Tab) 1 tab PO BID [facility] Stop: 08/26/21 08:59 Last Admin: 07/27/21 08:33 Dose: 1 tab Documented by: [id number] Sertraline HCl (Sertraline Hcl 50 Mg Tablet) 50 mg PO QAM [place] Stop: 08/26/21 08:59 Last Admin: 07/27/21 08:33 Dose: 50 mg Documented by: [id number] Discontinued Medications Bumetanide 2 mg/ Syringe 8 mls @ 4 mls/min IV ONE ONE Stop: 07/26/21 22:07 Last Admin: 07/26/21 22:41 Dose: 4 mls/min Documented by: [id number] PG Care Time/CCT Total # of Minutes Spent Total Time Spent with Patient: Total time spent is greater than 50% in coordination of care (as documented) at patient's floor/unit and/or counseling patient: Coding Level of Care Code 61235 Subseq Hosp Care Lvl 3 Diagnoses Acute on chronic combined systolic and diastolic CHF (congestive heart failure) I50.43 Occipital scalp laceration S01.01XA Encounter type: initial encounter Hypoxia R09.02 History of pulmonary embolus (PE) Z86.711 Hx of myocardial infarction I25.2 Chronic renal failure, stage 3b N18.32 Atrial fibrillation I48.19 Atrial fibrillation type: persistent (not longstanding) CAD S/P percutaneous coronary angioplasty I25.10; Z98.61 (1) Atrial fibrillation Atrial fibrillation type: persistent (not longstanding) Qualified Code(s): I48.19 - Other persistent atrial fibrillation (2) Occipital scalp laceration Encounter type: initial encounter Qualified Code(s): S01.01XA - Laceration without foreign body of scalp, initial encounter
[2021-07-27] MEDS: COLESTIPOL HCL 1 GM TAB PO SCH (11:05)
--- NOTE | 2021-07-27 12:27 | Electrocardiogram Report ---
Test Reason : Blood Pressure : / mmHG Vent. Rate : 079 BPM Atrial Rate : 083 BPM P-R Int : 000 ms QRS Dur : 112 ms QT Int : 398 ms P-R-T Axes : 000 -42 100 degrees QTc Int : 456 ms Atrial fibrillation Left axis deviation Low voltage QRS Inferior infarct (cited on or before 04-AUG-2007) Cannot rule out Anterior infarct (cited on or before 04-AUG-2007) Abnormal ECG When compared with ECG of 11-JUL-2021 12:31, Atrial fibrillation has replaced Sinus rhythm Confirmed by Yassine Ness ([id number]) on 07/27/2021 12:26:52 PM Referred By: REFERRED SELF Confirmed By:Gary Ness
--- NOTE | 2021-07-27 12:27 | Electrocardiogram Report ---
Test Reason : Blood Pressure : / mmHG Vent. Rate : 075 BPM Atrial Rate : 073 BPM P-R Int : 000 ms QRS Dur : 116 ms QT Int : 422 ms P-R-T Axes : 000 -47 111 degrees QTc Int : 471 ms Atrial fibrillation Left axis deviation Low voltage QRS Inferior infarct (cited on or before 04-AUG-2007) Cannot rule out Anterior infarct (cited on or before 04-AUG-2007) Abnormal ECG When compared with ECG of 26-JUL-2021 21:03, (unconfirmed) No significant change was found Confirmed by Yassine Ness ([id number]) on 07/27/2021 12:27:16 PM Referred By: REFERRED SELF Confirmed By:Gary Ness
--- NOTE | 2021-07-27 12:27 | Electrocardiogram Report ---
Test Reason : Blood Pressure : / mmHG Vent. Rate : 076 BPM Atrial Rate : 159 BPM P-R Int : 000 ms QRS Dur : 112 ms QT Int : 422 ms P-R-T Axes : 000 -44 080 degrees QTc Int : 474 ms Atrial fibrillation with a competing junctional pacemaker Left axis deviation Low voltage QRS Inferior infarct (cited on or before 04-AUG-2007) Cannot rule out Anterior infarct (cited on or before 04-AUG-2007) Abnormal ECG When compared with ECG of 26-JUL-2021 21:01, (unconfirmed) No significant change was found Confirmed by Yassine Ness ([id number]) on 07/27/2021 12:27:28 PM Referred By: REFERRED SELF Confirmed By:Gary Ness
[2021-07-27] MEDS: BUMETANIDE 1 MG TAB PO SCH (16:59)
[2021-07-27] MEDS: AMIODARONE 200 MG TAB PO SCH (20:59)
[2021-07-28 06:31] LABS: Basophils # (auto) 0.03 K/uL (0-0.2); Basophils % (auto) 0.3 %; Hematocrit (blood only) 29.1 % (42-52); Immature Granulocytes # (auto) 0.03 K/uL (0.00-0.02); Immature Granulocytes % (auto) 0.3 %; Lymphocytes # (auto) 0.43 K/uL (1.2-3.4); Lymphocytes % (auto) 4.2 %; Mean Corpuscular Hemoglobin 29.9 pg (25-34); Mean Corpuscular Hgb Conc 30.9 g/dL (32-36); Mean Corpuscular Volume 96.7 fL (80-100); Mean Platelet Volume 9.9 fL (7.4-10.4); Monocytes % (auto) 6.9 %; Neutrophils # (auto) 8.79 K/uL (1.4-6.5); Neutrophils % (auto) 86.3 %; Platelet Count 283 K/uL (130-400); RDW Coefficient of Variation 22.2 % (11.5-14.5); RDW Standard Deviation 77.6 fL (36.4-46.3); Red Blood Count 3.01 M/uL (4.7-6.1); White Blood Count 10.18 K/uL (4.8-10.8)
[2021-07-28 06:53] LABS: Anisocytosis Present; Polychromasia 1+
[2021-07-28 07:05] LABS: Albumin Level 2.1 gm/dl (3.4-5.0); BUN Creatinine Ratio 24.6 (10-20); Calcium 8.8 mg/dl (8.5-10.1); Creatinine Clr Calc Pharmacy 37.4 ml/min; Est GFR (African American) 35.2 ml/min; Est GFR (Non-African American) 30.3 ml/min; Magnesium 1.9 mg/dl (1.8-2.4); Potassium 3.4 mmol/L (3.5-5.1)
[2021-07-28 07:08] LABS: Albumin Globulin Ratio 0.4 (0.9-2); Bilirubin,Total 1.2 mg/dl (0.2-1); Globulin 4.7 gm/dl (2.5-4.0); Total Protein 6.8 gm/dl (6.4-8.2)
[2021-07-28] MEDS: buPROPion SR 100 MG TABCR PO SCH ×2 (08:53→21:32)
[2021-07-28] MEDS: POTASSIUM CHLORIDE CRTAB 20 MEQ TABCR PO SCH ×2 (08:54→21:32)
[2021-07-28] MEDS: BUMETANIDE 1 MG TAB PO SCH (08:54)
[2021-07-28] MEDS: SERTRALINE HCL 50 MG TABLET PO SCH (08:54)
[2021-07-28] MEDS: CLOPIDOGREL BISULFATE 75 MG TAB PO SCH (08:54)
[2021-07-28] MEDS: APIXABAN 5 MG TABLET PO SCH ×2 (08:54→21:32)
[2021-07-28] MEDS: COLESTIPOL HCL 1 GM TAB PO SCH (08:54)
[2021-07-28] MEDS: allopurinoL 100 MG TAB PO SCH (08:54)
[2021-07-28] MEDS: VALSARTAN/SACUBITRIL 26/24MG TAB PO SCH ×2 (08:55→21:33)
[2021-07-28] MEDS: METOPROLOL SUCC 50MG EXT REL TAB PO SCH ×2 (08:57→21:32)
[2021-07-28] MEDS ORDERED: POTASSIUM CHLORIDE CRTAB 20 MEQ TABCR PO STA (09:55)
[2021-07-28] MEDS: VANCOMYCIN HCL 1,250 MG in SODIUM CHLORIDE 0.9% 250 ML IV SCH (10:01)
--- NOTE | 2021-07-28 10:19 | Hospitalist Progress Note ---
Date of Service July 28, 2021 Assessment & Plan (1) Acute on chronic combined systolic and diastolic CHF (congestive heart failure): Plan: Acute on chronic combined systolic and diastolic CHF/CAD/hypertension/atrial fibrillation/status post PTCA and coronary artery stent placement/history of VT- HFrEF Received Bumex 2 mg IV in ED Continue Bumex 2 mg IV twice daily for now. Continue apixaban, clopidogrel, metoprolol succinate, Plavix, Amiodarone, potassium chloride, Entresto. This was not the cause of his fall, but likely occurred as a result of the fall and stress - Again agree this is not an acute exacerbation of his heart failure - Continue with low sodium diet - diuresed as above - Patient does not elevate feet at night but spends most of his day in wheel chair or sitting on the edge of his bed 07/28- euvolemic appearing on exam- will hold evening dose of Bumex tonight as [employer] up to 2.05 from 1.7 yesterday - Goal ~500ml negative yesterday - edema and errythema of legs improved and lung sounds improved (2) Occipital scalp laceration: Plan: Occipital scalp laceration status post mechanical fall Local wound care - Well healing without hematoma or signs of infection (3) Hypoxia: Plan: Hypoxia without respiratory failure - ? MRSA pneumonia vs. Viral vs. poor inspirator effort with rib fracture - No WBC, Cough without sputum production Continue nasal cannula oxygen, titrate to keep pulse ox 90 to 94% - Continue inhalers 07/28- improved today wean down oxygen to off SPO2 goal >92% (4) History of pulmonary embolus (PE): Plan: Continue apixaban (5) Hx of myocardial infarction: Plan: See above (6) Chronic renal failure, stage 3b: Plan: Creatinine 1.89 upon admission, with range 1.67-2.93 Continue to follow closely while diuresing - Imprvoed today- continue to monitor - As above hold evening BUMEX tonight (7) Atrial fibrillation: Plan: See above -Continue ammiodarone and apixaban (8) CAD S/P percutaneous coronary angioplasty: Plan: See above Admission and Anticipated Discharge Date Admission Date: July 26, 2021 Supervising Physician Co-Signing Physician Notes Patient chart was reviewed and discussed patient with ELECTROTHERAPIST but patient not seen. I agree with the plan above with the following exceptions. No pneumonia suspected given review of prior imaging but will continue on vancomycin for cellulitis. Agree patient is euvolemic and will switch back to his usual Bumex 2mg PO BID. Given readmission I do not believe he is safe to return at this time and will need PT/OT prior to discharge. Subjective Patient sitting up on edge of the bed this morning, is less conversationally dyspneic this morning and did not get dyspneic with getting self up from lying to sitting on edge of bed. Legs are less edematous and erythemic than yesterday. MRSA swab positive today- source of pulmonary vs. lower extremities. He appears Euvolemic today and was ~-475 ml out over 24 hours. Lungs improved with better air movement and less crackles. [employer] up to 2.05 but at his baseline. Hold this evenings BUMEX dose and likely add back tomorrow. He endorses that he drinks much more water at [facility] as he is not on water restriction there. He has no further Telemetry needs. He was concerned about his jacket and checkbook that he had in his jacket at [facility]. Call was placed and verified that they had both. He was obviously relieved as he is still requiring oxygen will continue admission. PCT for tomorrow morning for bacterial cause. Review of Systems Review of Systems: REVIEW OF SYSTEMS: Constitutional: No fever, sweats or chills Eyes: No diplopia, no worsening or blurred vision ENT: normal hearing, no trouble swallowing Respiratory: (+) cough, dyspnea at rest, NO sputum, or dyspnea on exertion Cardiovascular: (+) lower extremity edema and venous congestion, No chest pain, tightness or palpitations Abdomen: No pain, nausea, vomiting, diarrhea or constipation Musculoskeletal: No joint pain, calf pain, swelling Neurologic: No weakness, numbness/tingling, or balance problems Psychiatric: No anxiety or depression Skin: No rash or itch Physical Exam Physical Exam: PHYSICAL EXAM: General: awake, alert, no apparent distress Head: Normocephalic, midline stapled incision to back of the head- intact ENT: PERRL, EOMI, no pharyngeal exudate, mucous membranes moist Neuro: AAO x 3, speech clear and appropriate, strength intact bilaterally 5/5, sensation intact and equal all extremities and dermatomes, no pronator drift Chest: equal rise and fall of the chest, no accessory muscle use, no heaves or thrills, scattered crackles throughout decreased in the bases, on 2LNC, Cardiac: irregular rate and rhythm, telemetry reviewed- no acute events, skin warm dry, cap refill <3 seconds, peripheral pulses +2 no JVD, no murmur, bilateral +2 edema with venous congestion and ulcerations GI: NABS x 4 quadrants, soft, nontender to palpation, no rebound, guarding or tenderness : Spontaneously voiding, no pain, no CVA tenderness, Extremities: Normal inspection, no peripheral edema or erythema, calfs nontender to palpation Psych: Normal mood and affect Skin: As above for lower extremities- improved, no other rash or erythema Results & Data Results & Data ([facility]) Vital Signs (Past 12 Hours) Vital Signs Temp Pulse Resp BP Pulse Ox 07/28/21 08:58 36.9 C 77 18 106/69 92 07/28/21 05:53 71 93/86 L 92 07/28/21 00:38 77 107/67 96 Laboratory Results Abnormal lab results 07/28/21 07/28/21 Range/Units 06:18 06:18 RBC 3.01 L (4.7-6.1) M/uL Hgb 9.0 L (14.0-18.0) g/dL Hct 29.1 L (42-52) % MCHC 30.9 L (32-36) g/dL RDW Std Deviation 77.6 H (36.4-46.3) fL RDW Coeff of Jeff 22.2 H (11.5-14.5) % Neut # (Auto) 8.79 H (1.4-6.5) K/uL Lymph # (Auto) 0.43 L (1.2-3.4) K/uL [place] # (Auto) 0.70 H (0.11-0.59) K/uL Immature Gran # (Auto) 0.03 H (0.00-0.02) K/uL Potassium 3.4 L (3.5-5.1) mmol/L BUN 50 H (7-18) mg/dl Creatinine 2.05 H D (0.6-1.4) mg/dl BUN/Creatinine Ratio 24.6 H (10-20) Glucose 126 H (70-99) mg/dl Total Bilirubin 1.2 H (0.2-1) mg/dl AST 38 H (15-37) U/L Alkaline Phosphatase 365 H (45-117) U/L Albumin 2.1 L (3.4-5.0) gm/dl Globulin 4.7 H (2.5-4.0) gm/dl Albumin/Globulin Ratio 0.4 L (0.9-2) Medications Administered Acetaminophen (Acetaminophen 325 Mg Tab) 650 mg PO Q4H PRN PRN Reason: Pain or Fever Stop: 08/26/21 00:25 Last Admin: 07/27/21 21:00 Dose: 650 mg Documented by: [id number] Allopurinol (Allopurinol 100 Mg Tab) 100 mg PO DAILY [facility] Stop: 08/26/21 08:59 Last Admin: 07/28/21 08:54 Dose: 100 mg Documented by: [id number] Admin: 07/27/21 08:33 Dose: 100 mg Documented by: [id number] Amiodarone HCl (Amiodarone 200 Mg Tab) 200 mg PO HS [place] Stop: 08/26/21 20:59 Last Admin: 07/27/21 20:59 Dose: 200 mg Documented by: [id number] Apixaban (Apixaban 5 Mg Tablet) 5 mg PO BID [place] Stop: 08/26/21 00:25 Last Admin: 07/28/21 08:54 Dose: 5 mg Documented by: [id number] Admin: 07/27/21 21:00 Dose: 5 mg Documented by: [id number] Admin: 07/27/21 08:32 Dose: 5 mg Documented by: [id number] Admin: 07/27/21 02:37 Dose: 5 mg Documented by: [id number] Bumetanide (Bumetanide 1 Mg Tab) 2 mg PO [id number] [place] Stop: 08/26/21 16:59 Last Admin: 07/28/21 08:54 Dose: 2 mg Documented by: [id number] Admin: 07/27/21 16:59 Dose: 2 mg Documented by: [id number] Bupropion HCl (Bupropion Sr 100 Mg Tabcr) 100 mg PO BID [place] Stop: 08/26/21 00:25 Last Admin: 07/28/21 08:53 Dose: 100 mg Documented by: [id number] Admin: 07/27/21 20:59 Dose: 100 mg Documented by: [id number] Admin: 07/27/21 08:32 Dose: 100 mg Documented by: [id number] Admin: 07/27/21 02:34 Dose: 100 mg Documented by: [id number] Clopidogrel Bisulfate (Clopidogrel Bisulfate 75 Mg Tab) 75 mg PO QAM [place] Stop: 08/26/21 08:59 Last Admin: 07/28/21 08:54 Dose: 75 mg Documented by: [id number] Admin: 07/27/21 08:33 Dose: 75 mg Documented by: [id number] Colestipol HCl (Colestipol Hcl 1 Gm Tab) 2 gm PO DAILY@1000 [place] Stop: 08/26/21 09:59 Last Admin: 07/28/21 08:54 Dose: 2 gm Documented by: [id number] Admin: 07/27/21 11:05 Dose: 2 gm Documented by: [id number] Vancomycin HCl 1,250 mg/ (Sodium Chloride) 275 mls @ 200 mls/hr IV Q24H [place] Stop: 08/04/21 07:59 Last Infusion: 07/28/21 11:32 Dose: 0 mls/hr Documented by: [id number] Admin: 07/28/21 10:01 Dose: 200 mls/hr Documented by: [id number] Metoprolol Succinate (Metoprolol Succ 50mg Ext Rel Tab) 50 mg PO BID [place] Stop: 08/26/21 00:25 Last Admin: 07/28/21 08:57 Dose: 50 mg Documented by: [id number] Admin: 07/27/21 21:00 Dose: 50 mg Documented by: [id number] Admin: 07/27/21 08:32 Dose: 50 mg Documented by: [id number] Admin: 07/27/21 02:36 Dose: 50 mg Documented by: [id number] Multivitamins/Minerals (Cerovite Adv Formula Tab) 1 tab PO DAILY [place] Stop: 08/26/21 08:59 Last Admin: 07/27/21 08:33 Dose: 1 tab Documented by: [id number] Potassium Chloride (Potassium Chloride Crtab 20 Meq Tabcr) 20 meq PO BID [facility] Stop: 08/26/21 00:25 Last Admin: 07/28/21 08:54 Dose: 20 meq Documented by: [id number] Admin: 07/27/21 20:59 Dose: 20 meq Documented by: [id number] Admin: 07/27/21 08:32 Dose: 20 meq Documented by: [id number] Admin: 07/27/21 02:35 Dose: 20 meq Documented by: [id number] Sacubitril/Valsartan (Valsartan/Sacubitril 26/24mg Tab) 1 tab PO BID [place] Stop: 08/26/21 08:59 Last Admin: 07/28/21 08:55 Dose: 1 tab Documented by: [id number] Admin: 07/27/21 20:59 Dose: 1 tab Documented by: [id number] Admin: 07/27/21 08:33 Dose: 1 tab Documented by: [id number] Sertraline HCl (Sertraline Hcl 50 Mg Tablet) 50 mg PO QAM [facility] Stop: 08/26/21 08:59 Last Admin: 07/28/21 08:54 Dose: 50 mg Documented by: [id number] Admin: 07/27/21 08:33 Dose: 50 mg Documented by: [id number] Discontinued Medications Bumetanide 2 mg/ Syringe 8 mls @ 4 mls/min IV ONE ONE Stop: 07/26/21 22:07 Last Admin: 07/26/21 22:41 Dose: 4 mls/min Documented by: [id number] Bumetanide 2 mg/ Syringe 8 mls @ 4 mls/min IV BID@0900,1700 [facility] Stop: 08/26/21 08:59 Last Admin: 07/27/21 08:33 Dose: 4 mls/min Documented by: [id number] Vancomycin HCl 2,750 mg/ (Sodium Chloride) 555 mls @ 180 mls/hr IV TODAY@0930 [place] Stop: 07/27/21 12:34 Last Infusion: 07/27/21 14:48 Dose: 0 mls/hr Documented by: [id number] Admin: 07/27/21 10:20 Dose: 180 mls/hr Documented by: [id number] Potassium Chloride (Potassium Chloride Crtab 20 Meq Tabcr) 20 meq PO NOW STA Stop: 07/28/21 09:56 Last Admin: 07/28/21 10:41 Dose: 20 meq Documented by: [id number] PG Care Time/CCT Total # of Minutes Spent Total Time Spent with Patient: Total time spent is greater than 50% in coordination of care (as documented) at patient's floor/unit and/or counseling patient: Coding Level of Care Code 61776 Subseq Hosp Care Lvl 3 Diagnoses Acute on chronic combined systolic and diastolic CHF (congestive heart failure) I50.43 Occipital scalp laceration S01.01XA Encounter type: initial encounter Hypoxia R09.02 History of pulmonary embolus (PE) Z86.711 Hx of myocardial infarction I25.2 Chronic renal failure, stage 3b N18.32 Atrial fibrillation I48.19 Atrial fibrillation type: persistent (not longstanding) CAD S/P percutaneous coronary angioplasty I25.10; Z98.61 (1) Atrial fibrillation Atrial fibrillation type: persistent (not longstanding) Qualified Code(s): I48.19 - Other persistent atrial fibrillation (2) Occipital scalp laceration Encounter type: initial encounter Qualified Code(s): S01.01XA - Laceration without foreign body of scalp, initial encounter
--- NOTE | 2021-07-28 15:50 | Pharmacy Report ---
Pharmacy Vanc AUC Short Note - Date of Service July 28, 2021 - Assessment & Plan Assessment 76 year old M receiving Vancomycin for treatment of questionable pneumonia. Pertinent microbiologic data includes: Positive MRSA Nasal Swab. Day # 2 of antimicrobial therapy. Chest Xray shows small scattered patchy airspace opacities, which likely represent a pneumonia Plan Vancomycin * AUC/CODY is the preferred PK/PD target for vancomycin * AUC guided dosing is effective and associated with decreased risk of nephrotoxicity compared to traditional trough targets * Predicted Trough level of 16.4 mcg/mL is predicted to achieve target AUC/CODY of 400-600 mg/L.hr and may be associated with a 12 % risk of nephrotoxicity * Patient received Vancomycin 2750 x1 load (~24 mg/kg) and began maintenance dose of 1250 mg(11.1 mg/kg)IV every 24 hours OR Change to mg IV every hours * Trough or random level ordered for: 07/30/21 @ 0730 Pharmacy will continue to follow and will adjust dose/frequency as necessary. Thank you.
[2021-07-28] MEDS: AMIODARONE 200 MG TAB PO SCH (21:32)
[2021-07-29 07:22] LABS: Basophils # (auto) 0.04 K/uL (0-0.2); Basophils % (auto) 0.4 %; Eosinophils # (auto) 0.34 K/uL (0-0.5); Eosinophils % (auto) 3.2 %; Hematocrit (blood only) 28.7 % (42-52); Immature Granulocytes # (auto) 0.02 K/uL (0.00-0.02); Immature Granulocytes % (auto) 0.2 %; Lymphocytes # (auto) 0.59 K/uL (1.2-3.4); Lymphocytes % (auto) 5.6 %; Mean Corpuscular Hemoglobin 30.1 pg (25-34); Mean Corpuscular Hgb Conc 31.4 g/dL (32-36); Mean Platelet Volume 10.4 fL (7.4-10.4); Monocytes % (auto) 8.5 %; Neutrophils % (auto) 82.1 %; Platelet Count 300 K/uL (130-400); RDW Coefficient of Variation 21.6 % (11.5-14.5); RDW Standard Deviation 74.4 fL (36.4-46.3); Red Blood Count 2.99 M/uL (4.7-6.1); White Blood Count 10.59 K/uL (4.8-10.8)
[2021-07-29 07:43] LABS: Albumin Level 2.2 gm/dl (3.4-5.0); BUN Creatinine Ratio 27.6 (10-20); Calcium 9.3 mg/dl (8.5-10.1); Creatinine Clr Calc Pharmacy 35.9 ml/min; Est GFR (Non-African American) 29.3 ml/min; Potassium 4.2 mmol/L (3.5-5.1)
[2021-07-29 07:47] LABS: Albumin Globulin Ratio 0.5 (0.9-2); Bilirubin,Total 1.2 mg/dl (0.2-1); Globulin 4.8 gm/dl (2.5-4.0)
[2021-07-29] MEDS: VANCOMYCIN HCL 1,250 MG in SODIUM CHLORIDE 0.9% 250 ML IV SCH (07:59)
[2021-07-29] MEDS: allopurinoL 100 MG TAB PO SCH (08:03)
[2021-07-29] MEDS: APIXABAN 5 MG TABLET PO SCH ×2 (08:04→21:15)
[2021-07-29] MEDS: VALSARTAN/SACUBITRIL 26/24MG TAB PO SCH ×2 (08:04→21:15)
[2021-07-29] MEDS: CLOPIDOGREL BISULFATE 75 MG TAB PO SCH (08:04)
[2021-07-29] MEDS: POTASSIUM CHLORIDE CRTAB 20 MEQ TABCR PO SCH ×2 (08:05→21:15)
[2021-07-29] MEDS: SERTRALINE HCL 50 MG TABLET PO SCH (08:05)
[2021-07-29] MEDS: buPROPion SR 100 MG TABCR PO SCH ×2 (08:05→21:16)
[2021-07-29 09:32] LABS: Anisocytosis Present
[2021-07-29] MEDS ORDERED: POLYETHYLENE (MIRALAX) 17 GM PACK PO PRN (10:07)
[2021-07-29] MEDS: METOPROLOL SUCC 50MG EXT REL TAB PO SCH ×2 (10:34→21:19)
[2021-07-29] MEDS: COLESTIPOL HCL 1 GM TAB PO SCH (10:34)
[2021-07-29] MEDS: PSYLLIUM 58.6% POWDER PACKET PO SCH (14:16)
[2021-07-29] MEDS: LORATADINE 10 MG TAB PO SCH (14:18)
--- NOTE | 2021-07-29 17:01 | Hospitalist Progress Note ---
Date of Service July 29, 2021 Assessment & Plan (1) Acute on chronic combined systolic and diastolic CHF (congestive heart failure): Plan: - Suspect fall was not due to CHF as very mechanical in nature - does not appear to be in an acute exacerbation - Acute on chronic combined systolic and diastolic CHF/CAD/hypertension/atrial fibrillation/status post PTCA and coronary artery stent placement/history of NM- HFrEF - Received Bumex 2 mg IV in ED - Cr is beginning to rise and BP soft - held Bumex today and will monitor overnight with renal function and BP - weaning off O2 at rest but does desaturate with ambulation which suspect may be more chronic -- Ultimately should have 2 step prior to D/C - Continue apixaban, clopidogrel, metoprolol succinate, Amiodarone, potassium chloride, Entresto. - Appears rather Euvolemic at this time - reports his legs are much more improved from previous admission - largely looks more related to chronic venous stasis than infection (2) Occipital scalp laceration: Plan: Occipital scalp laceration status post mechanical fall - did not have breaks on wheelchair when going to move and it moved backwards and he fell Local wound care - Well healing without hematoma or signs of infection - will need michelle removed in coming days (3) Hypoxia: Plan: Hypoxia without respiratory failure - ? MRSA pneumonia vs. Viral vs. poor inspirator effort with rib fracture - No WBC, Cough without sputum production Continue nasal cannula oxygen, titrate to keep pulse ox > 92 - weaning down to 1 L at least at rest but suspect may need with ambulation and would need 2 step prior to D/C - Continue inhalers (4) History of pulmonary embolus (PE): Plan: Continue apixaban (5) Hx of myocardial infarction: Plan: See above (6) Chronic renal failure, stage 3b: Plan: Creatinine 1.89 upon admission, with range 1.67-2.93 Continue to follow closely while diuresing - As above in regards to Bumex - likely to readd tomorrow pending AM labs (7) Atrial fibrillation: Plan: See above -Continue ammiodarone and apixaban (8) CAD S/P percutaneous coronary angioplasty: Plan: See above Plan: PT/OT - patient may need to consider SNF prior to [facility]? - Monitor renal function Admission and Anticipated Discharge Date Admission Date: July 26, 2021 Subjective Reports doing overall well. States he feels like he gets a bit better everyday but hasn't been his normal for about 4-5 years. Acknowledges that he has declined and taking longer to bounce back from each hospitalization. He reports he does not enjoy [place] as there is noone there for him to talk to. Also feels that he may need a bit more care acutely then going to personal care. He states the back of his head is a bit sore but tolerable at this time. Denies SOB but does get some with ambulating and activity. Also reports Review of Systems Review of Systems: All systems reviewed & are unremarkable except as noted in Subjective Physical Exam Physical Exam: PHYSICAL EXAM General Appearance: NAD who is A&O x 3 HEENT: Head is normocephalic; small stapled incision to midline back of head without drainage, erythema, or dehiscence; Mucous membranes moist Neck: Supple; Trachea midline; Neg JVD Heart: RRR with no M/G/R Lungs: CTA in all lung ascencio bilaterally but diminished at bases; Respirations unlabored; Neg accessory muscle use Abdomen: Soft, non-tender, non-distended; Positive BS x 4 quadrants Extremities: Neg cyanosis; 2+ edema b/l lower extremities with venous stasis changes, not warm to touch; skin dry and flaky with no weeping Neurological: Speech clear; Gross motor/sensory function intact; Neg focal neurologic deficits Psychiatric: Appropriate mood/affect Skin: Normal Color; Warm/Dry; otherwise as above with extremities Results & Data Results & Data ([facility]) Vital Signs (Past 12 Hours) Vital Signs Temp Pulse Resp BP Pulse Ox 07/29/21 16:53 36.8 C 75 17 94/62 L 95 07/29/21 15:49 36.9 C 78 18 101/61 92 07/29/21 10:32 70 108/66 96 07/29/21 10:25 80 L 07/29/21 10:00 95 07/29/21 07:09 36.7 C 68 19 93/54 L 95 PG Care Time/CCT Total # of Minutes Spent Total Time Spent with Patient: Total time spent is greater than 50% in coordination of care (as documented) at patient's floor/unit and/or counseling patient: Coding Level of Care Code 70768 Subseq Hosp Care Lvl 3 Diagnoses Acute on chronic combined systolic and diastolic CHF (congestive heart failure) I50.43 Occipital scalp laceration S01.01XA Encounter type: initial encounter Hypoxia R09.02 History of pulmonary embolus (PE) Z86.711 Hx of myocardial infarction I25.2 Chronic renal failure, stage 3b N18.32 Atrial fibrillation I48.19 Atrial fibrillation type: persistent (not longstanding) CAD S/P percutaneous coronary angioplasty I25.10; Z98.61 (1) Atrial fibrillation Atrial fibrillation type: persistent (not longstanding) Qualified Code(s): I48.19 - Other persistent atrial fibrillation (2) Occipital scalp laceration Encounter type: initial encounter Qualified Code(s): S01.01XA - Laceration without foreign body of scalp, initial encounter
[2021-07-29] MEDS: AMIODARONE 200 MG TAB PO SCH (21:15)
[2021-07-30] MEDS ORDERED: VANCOMYCIN TROUGH ONE (07:30)
[2021-07-30 08:17] LABS: BUN Creatinine Ratio 29.1 (10-20); Calcium 8.9 mg/dl (8.5-10.1); Creatinine Clr Calc Pharmacy 34.4 ml/min; Est GFR (African American) 31.8 ml/min; Est GFR (Non-African American) 27.4 ml/min; Potassium 4.5 mmol/L (3.5-5.1)
--- NOTE | 2021-07-30 08:58 | Pharmacy Report ---
Pharmacy Vanc AUC Short Note - Date of Service July 30, 2021 - Assessment & Plan Assessment * 76 year old M receiving VANCOMYCIN IV for treatment of possible MRSA pna and lower ext SSTI. * Pertinent microbiologic data includes: Positive MRSA Nasal Swab * Day # 4 of antimicrobial therapy * Renal fxn worsening 1.71 -->2.05 --> 2.11 -->2.23 Plan Vancomycin * AUC/CODY is the preferred PK/PD target for vancomycin * AUC guided dosing is effective and associated with decreased risk of nephrotoxicity compared to traditional trough targets * He has been receiving 1250mg IV Q 24 hrs * Trough level of 18.7 mcg/mL is predicted to achieve AUC/CODY of > 600 mg/L.hr therefore will reduce dose to 1000mg IV Q 24 hrs as this dose is anticipated to produce an AUC/CODY of 400-600 and may be associated with a 13 % risk of nephrotoxicity * Will need to monitor renal fxn closely and adjust dose as necessary. Pharmacy will continue to follow and will adjust dose/frequency as necessary. Thank you.
[2021-07-30] MEDS: VANCOMYCIN HCL 1,250 MG in SODIUM CHLORIDE 0.9% 250 ML IV SCH (09:02)
[2021-07-30] MEDS: VALSARTAN/SACUBITRIL 26/24MG TAB PO SCH ×2 (09:03→21:24)
[2021-07-30] MEDS: APIXABAN 5 MG TABLET PO SCH ×2 (09:03→21:24)
[2021-07-30] MEDS: buPROPion SR 100 MG TABCR PO SCH ×2 (09:04→21:24)
[2021-07-30] MEDS: METOPROLOL SUCC 50MG EXT REL TAB PO SCH ×3 (09:04→21:24)
[2021-07-30] MEDS: CLOPIDOGREL BISULFATE 75 MG TAB PO SCH (09:04)
[2021-07-30] MEDS: SERTRALINE HCL 50 MG TABLET PO SCH (09:04)
[2021-07-30] MEDS: LORATADINE 10 MG TAB PO SCH (09:04)
[2021-07-30] MEDS: allopurinoL 100 MG TAB PO SCH (09:04)
[2021-07-30] MEDS: PSYLLIUM 58.6% POWDER PACKET PO SCH (09:05)
[2021-07-30] MEDS: POTASSIUM CHLORIDE CRTAB 20 MEQ TABCR PO SCH ×2 (09:13→21:25)
[2021-07-30] MEDS: COLESTIPOL HCL 1 GM TAB PO SCH (11:06)
--- NOTE | 2021-07-30 18:10 | Hospitalist Progress Note ---
Date of Service July 30, 2021 Assessment & Plan (1) Acute on chronic combined systolic and diastolic CHF (congestive heart failure): Plan: - Suspect fall was not due to CHF as very mechanical in nature - does not appear to be in an acute exacerbation - Acute on chronic combined systolic and diastolic CHF/CAD/hypertension/atrial fibrillation/status post PTCA and coronary artery stent placement/history of TN- HFrEF - Received Bumex 2 mg IV in ED - Cr is beginning to rise and BP soft - held Bumex today - weaning off O2 at rest but does desaturate with ambulation which suspect may be more chronic -- Ultimately should have 2 step prior to D/C - Continue apixaban, clopidogrel, metoprolol succinate, Amiodarone, potassium chloride, Entresto. - Appears rather Euvolemic at this time - reports his legs are much more improved from previous admission - largely looks more related to chronic venous stasis than infection (2) Occipital scalp laceration: Plan: Occipital scalp laceration status post mechanical fall - did not have breaks on wheelchair when going to move and it moved backwards and he fell Local wound care - Well healing without hematoma or signs of infection - will need michelle removed in coming days (3) Hypoxia: Plan: Hypoxia without respiratory failure - ? MRSA pneumonia vs. Viral vs. poor inspirator effort with rib fracture - No WBC, Cough without sputum production -- Low suspicion of bacterial PNA (no leukocytosis, neg procal); was initially placed on Vanc more for legs but low suspicion of infection there too. Holding further Vanc but will repeat CXR in AM Continue nasal cannula oxygen, titrate to keep pulse ox > 92 - weaning down to 1-2 L at least at rest but suspect may need with ambulation and would need 2 step prior to D/C - Continue inhalers (4) History of pulmonary embolus (PE): Plan: Continue apixaban (5) Hx of myocardial infarction: Plan: See above (6) Chronic renal failure, stage 3b: Plan: Creatinine 1.89 upon admission but has been trending up, with range 1.67-2.93 Continue to follow closely while diuresing - As above in regards to Bumex - will add just daily for now and monitor (7) Atrial fibrillation: Plan: See above -Continue ammiodarone and apixaban (8) CAD S/P percutaneous coronary angioplasty: Plan: See above Plan: PT/OT - PT recommending [facility] - Patient does not really want to go back there. Did have a long discussion as it appears the family is considering other options. However, may have to return there until those can be arranged. Mostly feels depressed there as most residents do not talk or interact Admission and Anticipated Discharge Date Admission Date: July 26, 2021 Subjective Reports feeling fine with rest. Fatigues easily with movement but feels he did okay with therapy today. Doesnt want to go back to [facility] due to people there are not interactive so it is kind of depressing for him. Tolerating a diet at this time. Verbalizes no complaints. Review of Systems Review of Systems: All systems reviewed & are unremarkable except as noted in Subjective Physical Exam Physical Exam: PHYSICAL EXAM General Appearance: NAD who is A&O x 3 HEENT: Head is normocephalic; small stapled incision to midline back of head without drainage, erythema, or dehiscence; Mucous membranes moist Neck: Supple; Trachea midline; Neg JVD Heart: RRR with no M/G/R Lungs: CTA in all lung ascencio bilaterally but diminished at bases; Respirations unlabored; Neg accessory muscle use Abdomen: Soft, non-tender, non-distended; Positive BS x 4 quadrants Extremities: Neg cyanosis; 2+ edema b/l lower extremities with venous stasis changes, toughened skin, not warm to touch; skin dry and flaky with no weeping Neurological: Speech clear; Gross motor/sensory function intact; Neg focal neurologic deficits Psychiatric: Appropriate mood/affect Skin: Normal Color; Warm/Dry; otherwise as above with extremities Results & Data Results & Data ([facility]) Vital Signs (Past 12 Hours) Vital Signs Temp Pulse Resp BP Pulse Ox 07/30/21 15:49 36.6 C 88 16 100/64 95 07/30/21 10:32 91 07/30/21 09:07 73 91/53 L 07/30/21 07:12 36.8 C 85 19 98/61 L 94 PG Care Time/CCT Total # of Minutes Spent Total Time Spent with Patient: Total time spent is greater than 50% in coordination of care (as documented) at patient's floor/unit and/or counseling patient: Coding Level of Care Code 64385 Subseq Hosp Care Lvl 2 Diagnoses Acute on chronic combined systolic and diastolic CHF (congestive heart failure) I50.43 Occipital scalp laceration S01.01XA Encounter type: initial encounter Hypoxia R09.02 History of pulmonary embolus (PE) Z86.711 Hx of myocardial infarction I25.2 Chronic renal failure, stage 3b N18.32 Atrial fibrillation I48.19 Atrial fibrillation type: persistent (not longstanding) CAD S/P percutaneous coronary angioplasty I25.10; Z98.61 (1) Occipital scalp laceration Encounter type: initial encounter Qualified Code(s): S01.01XA - Laceration without foreign body of scalp, initial encounter (2) Atrial fibrillation Atrial fibrillation type: persistent (not longstanding) Qualified Code(s): I48.19 - Other persistent atrial fibrillation
[2021-07-30] MEDS ORDERED: BUMETANIDE 1 MG TAB PO SCH (21:00)
[2021-07-30] MEDS: AMIODARONE 200 MG TAB PO SCH (21:24)
--- NOTE | 2021-07-31 07:40 | XRay Report ---
XR chest 1V portable CLINICAL HISTORY: Ongoing Hypoxia; CHF vs PNA COMPARISON STUDY: Chest radiograph July 26, 2021. FINDINGS: Lung volumes are normal. There is no pneumothorax. Small left pleural effusion persists. Ca rdiomegaly is unchanged. Asymmetric left lung airspace opacities have slightly increased. Mild inters titial thickening persists. IMPRESSION: 1. Increase in asymmetric left lung opacity. This may reflect an infectious process or asymmetric pul monary edema. 2. Persistent left pleural effusion. 3. Cardiomegaly. ACT 112: Negative or not required by law. Electronically signed by: Choco Davidson M.D. 07/31/2021 7:39 AM
[2021-07-31] MEDS: METOPROLOL SUCC 50MG EXT REL TAB PO SCH ×3 (08:08→21:13)
[2021-07-31] MEDS: allopurinoL 100 MG TAB PO SCH (08:09)
[2021-07-31] MEDS: SERTRALINE HCL 50 MG TABLET PO SCH (08:09)
[2021-07-31] MEDS: PSYLLIUM 58.6% POWDER PACKET PO SCH (08:09)
[2021-07-31] MEDS: LORATADINE 10 MG TAB PO SCH (08:09)
[2021-07-31] MEDS: CLOPIDOGREL BISULFATE 75 MG TAB PO SCH (08:09)
[2021-07-31] MEDS: BUMETANIDE 1 MG TAB PO SCH (08:10)
[2021-07-31] MEDS: buPROPion SR 100 MG TABCR PO SCH ×2 (08:10→21:08)
[2021-07-31] MEDS: APIXABAN 5 MG TABLET PO SCH ×2 (08:10→21:08)
[2021-07-31] MEDS: POTASSIUM CHLORIDE CRTAB 20 MEQ TABCR PO SCH ×2 (08:11→21:07)
[2021-07-31] MEDS: VALSARTAN/SACUBITRIL 26/24MG TAB PO SCH ×2 (08:12→21:07)
[2021-07-31 09:16] LABS: BUN Creatinine Ratio 29.1 (10-20); Calcium 8.7 mg/dl (8.5-10.1); Est GFR (African American) 30.3 ml/min; Est GFR (Non-African American) 26.1 ml/min; Potassium 4.5 mmol/L (3.5-5.1)
[2021-07-31 09:18] LABS: Basophils # (auto) 0.03 K/uL (0-0.2); Basophils % (auto) 0.3 %; Eosinophils # (auto) 0.34 K/uL (0-0.5); Eosinophils % (auto) 3.9 %; Hematocrit (blood only) 25.6 % (42-52); Hemoglobin 8.1 g/dL (14.0-18.0); Immature Granulocytes # (auto) 0.03 K/uL (0.00-0.02); Immature Granulocytes % (auto) 0.3 %; Lymphocytes # (auto) 0.45 K/uL (1.2-3.4); Lymphocytes % (auto) 5.1 %; Mean Corpuscular Hemoglobin 29.7 pg (25-34); Mean Corpuscular Volume 93.8 fL (80-100); Mean Platelet Volume 10.5 fL (7.4-10.4); Monocytes # (auto) 0.75 K/uL (0.11-0.59); Monocytes % (auto) 8.6 %; Neutrophils # (auto) 7.15 K/uL (1.4-6.5); Neutrophils % (auto) 81.8 %; Platelet Count 336 K/uL (130-400); RDW Coefficient of Variation 20.9 % (11.5-14.5); RDW Standard Deviation 70.6 fL (36.4-46.3); Red Blood Count 2.73 M/uL (4.7-6.1); White Blood Count 8.75 K/uL (4.8-10.8)
[2021-07-31 09:24] LABS: Mean Corpuscular Hgb Conc 31.6 g/dL (32-36)
[2021-07-31 09:39] LABS: Anisocytosis Present; Hypochromasia Present
[2021-07-31] MEDS ORDERED: VANCOMYCIN HCL 1,000 MG in SODIUM CHLORIDE 0.9% 250 ML IV SCH (10:00)
[2021-07-31] MEDS: COLESTIPOL HCL 1 GM TAB PO SCH (10:01)
--- NOTE | 2021-07-31 17:19 | Hospitalist Progress Note ---
Date of Service July 31, 2021 Assessment & Plan (1) Acute on chronic combined systolic and diastolic CHF (congestive heart failure): Plan: - Received Bumex 2 mg IV in ED - Suspect pt is at his dry weight, creatinine uptrending, soft BP, and mild hyponatremia - Bumex held past two days d/t soft BP - Continue apixaban, clopidogrel, metoprolol succinate, Amiodarone, potassium chloride, Entresto. (2) Occipital scalp laceration: Plan: - Occipital scalp laceration status post mechanical fall - Repaired in ED on 07/26, could be removed tomorrow - Continue local wound care (3) Hypoxia: Plan: Hypoxia without respiratory failure - ? MRSA pneumonia vs. Viral vs. poor inspirator effort with rib fracture - No WBC, Cough without sputum production - Repeat CXR this AM demonstrates persistent LL effusion and asymmetrical L opacity, CT chest w/o contrast ordered for further evaluation - Continue supplemental O2 for now, wean to maintain sat >90% (4) History of pulmonary embolus (PE): Plan: - Continue apixaban (5) Hx of myocardial infarction: Plan: - See above (6) Chronic renal failure, stage 3b: Plan: - Creatinine baseline 1.9 - Monitor (7) Atrial fibrillation: Plan: - See above - Continue amiodarone and apixaban Plan: Continue PT/OT - PT recommending [facility], d/w pt at length and he is agreeable to returning there Wean O2, obtain two step tomorrow Trend labs, f/u CT results D/C planning Admission and Anticipated Discharge Date Admission Date: July 26, 2021 Subjective Mr. Peterson was seen on rounds today. He is resting comfortably sitting up on edge of bed and voices no complaints. Pt remains hospitalized for hypoxia which was felt to be associated with acute exacerbation of CHF. He currently denies shortness of breath, chest pain, n/v/d, f/c, headache, or gu symptoms. He has chronic LE edema. Pt came from [facility] but was voicing hesitation to returning there. PT recommending return to [facility]. Is still requiring supplemental O2, currently 3L. Review of Systems Review of Systems: CONSTITUTIONAL: Denies weight loss/gain, fever and chills, fatigue, malaise, generalized weakness. HEENT: Denies changes in vision and hearing. RESPIRATORY: Denies SOB, cough, wheezing. CV: +LE edema. Denies palpitations, CP, orthopnea, PND. GI: Denies abdominal pain, nausea, vomiting and diarrhea. : Denies dysuria and urinary frequency, urgency, hesitancy. MUSCULOSKELETAL: Denies myalgia and joint pain. SKIN: Denies rash and pruritus. NEUROLOGICAL: Denies headache, syncope, focal weakness, numbness, tingling. PSYCHIATRIC: Denies recent changes in mood. Denies anxiety and depression. Physical Exam Physical Exam: GENERAL: 76 yo elderly WM. WD/WN pleasant. NAD. LUNGS: Clear to auscultation bilaterally. No accessory muscle use. No W/R/R. CARDIOVASCULAR: Regular rate and rhythm. No M/G/R. No JVD. ABDOMEN: Soft, non-tender. No palpable masses. Bowel sounds normoactive x 4 quad. EXTREMITIES: +2 pitting edema. Non-tender. Peripheral pulses +2/4. PSYCHIATRIC: Cooperative. Appropriate mood and affect. SKIN: Warm, dry, intact. No rashes or lesions. Results & Data Results & Data ([facility]) Vital Signs (Past 12 Hours) Vital Signs Temp Pulse Resp BP Pulse Ox 07/31/21 15:36 36.2 C L 91 H 19 97/63 L 94 07/31/21 08:07 90 07/31/21 07:58 36.2 C L 172 H 20 94/56 L 95 Laboratory Results 07/31/21 08:38 07/31/21 08:34 Diagnostic Findings Chest X-Ray 07/31/21 08:00 XR chest 1V portable CLINICAL HISTORY: Ongoing Hypoxia; CHF vs PNA COMPARISON STUDY: Chest radiograph July 26, 2021. FINDINGS: Lung volumes are normal. There is no pneumothorax. Small left pleural effusion persists. Cardiomegaly is unchanged. Asymmetric left lung airspace opacities have slightly increased. Mild interstitial thickening persists. IMPRESSION: 1. Increase in asymmetric left lung opacity. This may reflect an infectious process or asymmetric pulmonary edema. 2. Persistent left pleural effusion. 3. Cardiomegaly. ACT 112: Negative or not required by law. Electronically signed by: Choco Davidson M.D. 07/31/2021 7:39 AM PG Care Time/CCT Total # of Minutes Spent Total Time Spent with Patient: Total time spent is greater than 50% in coordination of care (as documented) at patient's floor/unit and/or counseling patient: Coding Level of Care Code 81958 Subseq Hosp Care Lvl 2 Diagnoses Acute on chronic combined systolic and diastolic CHF (congestive heart failure) I50.43 Occipital scalp laceration S01.01XA Encounter type: initial encounter Hypoxia R09.02 History of pulmonary embolus (PE) Z86.711 Hx of myocardial infarction I25.2 Chronic renal failure, stage 3b N18.32 Atrial fibrillation I48.19 Atrial fibrillation type: persistent (not longstanding) (1) Occipital scalp laceration Encounter type: initial encounter Qualified Code(s): S01.01XA - Laceration without foreign body of scalp, initial encounter (2) Atrial fibrillation Atrial fibrillation type: persistent (not longstanding) Qualified Code(s): I48.19 - Other persistent atrial fibrillation
--- NOTE | 2021-07-31 18:12 | CT Scan Report ---
CT SCAN OF THE CHEST WITHOUT IV CONTRAST CLINICAL HISTORY: Hypoxia. Abnormal chest x-ray. COMPARISON STUDY: Chest x-ray dated 07/31/2021. Chest CT dated 03/07/2020. TECHNIQUE: CT scan of the thorax was performed from the thoracic inlet to the upper abdomen. Images are reviewed in the axial, sagittal, and coronal planes. IV contrast was not administered for this ex amination as per the referring clinician. A dose lowering technique was utilized adhering to the salazar geoffrey of LANG. CT DOSE: 699.48 mGy.cm FINDINGS: Thyroid: Normal in size and heterogeneous in attenuation. Thoracic aorta: The thoracic aorta is normal in caliber and demonstrates standard 3-vessel arch anato my. Heart: The heart is enlarged and without pericardial effusion. The coronary arteries are densely calc ified. Lungs and pleural spaces: Evaluation of the lung parenchyma is degraded by motion artifact. 0There is a moderate left pleural effusion with atelectasis of the left lower lung. Trace pleural effusion is seen in the right. Patchy airspace consolidation is present throughout both lungs. There is no pneumo thorax. The trachea and central airways appear clear. Mediastinum: Numerous mildly enlarged mediastinal lymph nodes measure up to 14 mm in short axis. Thes e are likely reactive. Anita: Not well assessed without IV contrast. Axillae: There is no axillary lymphadenopathy. Upper abdomen: There is a small hiatal hernia. Partially visualized upper abdominal viscera is within normal limits. Skeletal structures: The skeletal structures are osteopenic. 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 There is a complex horizontal/oblique fracture of the T4 vertebral body with mil d loss of height. This involves the anterior and posterior cortex, and also reaches the anterior giacomo ex. Fracture likely involves the T4-T5 disc space, and there is also fracture within the anterior rig ht aspect of the T5 vertebral body. This involves the posterior elements of T5 including the right pe dicle, the left pedicle and the left lamina. There is also likely fracture through the base of the ri ght transverse process of T5. No lytic or blastic bony lesions are seen. Arthritic change is seen in the shoulders. There are subacute/healing fractures of the right posterior 9th and 10th ribs. IMPRESSION: 1. There is a complex and subacute appearing horizontal/oblique fracture through the body of T4 as de tailed above with mild loss of height. This fracture extends through the T4-T5 disc space, and also i nvolves the body and posterior elements of T5. This fracture is likely unstable. 2. There are subacute/healing right posterior 9th and 10th rib fractures. 3. Multifocal airspace consolidation seen throughout both lungs is typical for pneumonia. Clinical co rrelation will be required and radiographic follow-up to resolution is recommended. 4. Cardiomegaly. 5. Moderate left pleural effusion with atelectasis of the left lower lung. 6. Trace right pleural effusion. 7. Additional findings as above. ACT 112: Negative or not required by law. Electronically signed by: Nikolai Bacon M.D. 07/31/2021 6:10 PM
[2021-07-31] MEDS: AMIODARONE 200 MG TAB PO SCH (21:07)
[2021-07-31] MEDS: EUCERIN CR 120 GM JAR EXT SCH (21:08)
[2021-08-01 07:51] LABS: Basophils # (auto) 0.02 K/uL (0-0.2); Basophils % (auto) 0.2 %; Eosinophils # (auto) 0.25 K/uL (0-0.5); Eosinophils % (auto) 2.8 %; Hematocrit (blood only) 27.6 % (42-52); Hemoglobin 8.7 g/dL (14.0-18.0); Immature Granulocytes # (auto) 0.03 K/uL (0.00-0.02); Immature Granulocytes % (auto) 0.3 %; Lymphocytes # (auto) 0.77 K/uL (1.2-3.4); Lymphocytes % (auto) 8.5 %; Mean Corpuscular Hemoglobin 29.6 pg (25-34); Mean Corpuscular Hgb Conc 31.5 g/dL (32-36); Mean Corpuscular Volume 93.9 fL (80-100); Mean Platelet Volume 10.5 fL (7.4-10.4); Monocytes # (auto) 0.29 K/uL (0.11-0.59); Monocytes % (auto) 3.2 %; Platelet Count 355 K/uL (130-400); RDW Coefficient of Variation 20.7 % (11.5-14.5); RDW Standard Deviation 70.6 fL (36.4-46.3); Red Blood Count 2.94 M/uL (4.7-6.1); White Blood Count 9.06 K/uL (4.8-10.8)
[2021-08-01 08:25] LABS: BUN Creatinine Ratio 29.2 (10-20); Calcium 9.2 mg/dl (8.5-10.1); Creatinine Clr Calc Pharmacy 36.9 ml/min; Est GFR (African American) 34.8 ml/min; Magnesium 2.2 mg/dl (1.8-2.4); Potassium 4.8 mmol/L (3.5-5.1)
[2021-08-01 08:42] LABS: Anisocytosis Present
[2021-08-01] MEDS ORDERED: PIPERACILL/TAZOBAC CONSULT ACTIVE PRN (08:50)
[2021-08-01] MEDS: METOPROLOL SUCC 50MG EXT REL TAB PO SCH ×2 (08:56→21:31)
[2021-08-01] MEDS: VALSARTAN/SACUBITRIL 26/24MG TAB PO SCH ×2 (08:56→21:31)
[2021-08-01] MEDS: CLOPIDOGREL BISULFATE 75 MG TAB PO SCH (08:57)
[2021-08-01] MEDS: BUMETANIDE 1 MG TAB PO SCH (08:57)
[2021-08-01] MEDS: buPROPion SR 100 MG TABCR PO SCH ×2 (08:57→21:31)
[2021-08-01] MEDS: allopurinoL 100 MG TAB PO SCH (08:57)
[2021-08-01] MEDS: APIXABAN 5 MG TABLET PO SCH (08:57)
[2021-08-01] MEDS ORDERED: VANCOMYCIN CONSULT ACTIVE PRN (08:57)
[2021-08-01] MEDS: EUCERIN CR 120 GM JAR EXT SCH ×2 (08:57→21:32)
[2021-08-01] MEDS: PSYLLIUM 58.6% POWDER PACKET PO SCH (08:57)
[2021-08-01] MEDS: LORATADINE 10 MG TAB PO SCH (08:57)
[2021-08-01] MEDS: SERTRALINE HCL 50 MG TABLET PO SCH (08:57)
[2021-08-01] MEDS: COLESTIPOL HCL 1 GM TAB PO SCH (09:01)
--- NOTE | 2021-08-01 09:34 | Pharmacy Report ---
Pharmacy Vanc AUC Short Note - Date of Service August 01, 2021 - Assessment & Plan Assessment 76 year old with concerns for possible pneumonia. MRSA swab positive. Started on vancomycin 07/27, however stopped 07/30. Vancomycin and zosyn now started for this morning. Plan Vancomycin * AUC/CODY is the preferred PK/PD target for vancomycin * AUC guided dosing is effective and associated with decreased risk of nephrotoxicity compared to traditional trough targets * Previously on vancomycin 1250 mg iv q24 hrs - estimated vancomycin level this AM likely still >10 mcg/ml. Plan to start maintenance dose of vancomycin now with no loading doses * Plan to start vancomycin 1000 mg iv q 24 hrs. This is estimated to produce trough level ~16 mcg/ml, predicted to achieve target AUC/CODY of 400-600 mg/L.hr and may be associated with a 11% risk of nephrotoxicity * Plan to order vancomycin trough level if continued >48 hrs or sooner if renal function changes Zosyn * 4.5 gm iv q 8 hr - appropriate for CrCl >20 ml/min Pharmacy will continue to follow and will adjust dose/frequency as necessary. Thank you.
[2021-08-01] MEDS ORDERED: PIPERACILLIN/TAZOBACTAM 4.5 GM in DEXTROSE 5% 100 ML IV ONE (10:00)
[2021-08-01] MEDS: VANCOMYCIN HCL 1,000 MG in SODIUM CHLORIDE 0.9% 250 ML IV SCH (10:45)
[2021-08-01] MEDS: levoFLOXacin/D5W 750 MG/150 ML BAG IV SCH (10:49)
--- NOTE | 2021-08-01 10:49 | CT Scan Report ---
CT thoracic spine wo con CLINICAL HISTORY: Evaluate T4 fracture COMPARISON STUDY: CT of the chest from 07/31/2021 CT DOSE: 1210.05 mGy.cm TECHNIQUE: Standard CT of the Thoracic Spine was performed without IV contrast. A dose lowering tech nique was utilized adhering to the principles of ALARA. FINDINGS: Bones: There is evidence for a pathologic fracture of the T4 vertebral body. There is evidence for a lytic, destructive lesion of the T4 vertebral body with a comminuted, pathologic fracture through the body of T4 which extends into the posterior arch of T4 and the posterior elements. There is no poste rior extension of bone fragments into the spinal canal from the vertebral body. There is minimal ante rior extension of bone fragments from the posterior arch of T4. However, there is no evidence for spi nal cord compression. The overall fracture of the vertebral body is stable due to calcification of the anterior longitudina l ligaments at T3-4 and T4-5 along with involving the remainder of the thoracic spine. The fracture d oes extend transversely through the T4 vertebral body. There is only mild loss of height of the T4 ve rtebral body. The heights of the remaining thoracic vertebral bodies are maintained. The vertebral bodies are in an atomic alignment. Disc spaces: Mild to moderate disc space narrowing is seen throughout the thoracic spine. Pedicles::The remaining pedicles are intact bilaterally. Soft tissues: There is only mild paraspinal soft tissue swelling present. IMPRESSION: MR findings most characteristic of a pathologic comminuted fracture of the T4 vertebral b rad as described above. The anterior fracture fragments are stabilized from calcification of the ante rior longitudinal ligament at T3-4 and T4-5. There is mild displacement of the posterior fragments of the posterior spinal arch. However, no cord compression is identified. ACT 112: Negative or not required by law. Electronically signed by: Tremayne Goldsmith M.D. 08/01/2021 10:47 AM
[2021-08-01] MEDS: POTASSIUM CHLORIDE CRTAB 20 MEQ TABCR PO SCH ×2 (10:51→21:30)
--- NOTE | 2021-08-01 12:41 | Pulmonary Consultation ---
Date of Consultation August 01, 2021 Assessment & Plan (1) Bilateral pleural effusion: (2) Acute on chronic combined systolic and diastolic CHF (congestive heart failure): (3) Acute on chronic renal insufficiency: (4) Antiplatelet or antithrombotic long-term use: (5) Atrial fibrillation: Atrial fibrillation type: persistent (not longstanding) Qualified Code(s): I48.19 - Other persistent atrial fibrillation (6) History of pulmonary embolus (PE): Attending: Dr. Arceo Impression: This is a 76-year-old male with past medical history as indicated above. He was admitted for fall and found to have exacerbation of chronic systolic/diastolic congestive heart failure. proBNP was elevated. Patient received 1 dose of IV Bumex in the emergency department and is currently on his home dose of Bumex 2 mg p.o. twice daily. Since admission, patient has developed some shortness of breath with mild hypoxia. CT of the chest without contrast reveals moderate left pleural effusion with trace right pleural effusion. Patient most likely would benefit from thoracentesis but is currently on clopidogrel and apixaban which he received this morning. Patient denies acute distress or previous incident of pleural effusion or thoracentesis. Recommendations: 1. Bilateral pleural effusions: * Trace effusion on the right with moderate effusion on the left * Would recommend holding clopidogrel and apixaban. Ideally clopidogrel she will be hold for 5 days prior to procedure and apixaban for 48 hours. * Would recommend monitoring on telemetry if antiplatelet and anticoagulant is on hold as patient has history of atrial fibrillation * We will plan on repeat chest x-ray on morning (08/03/2021) * Continue with diuresis. Consider changing Bumex to IV from p.o. * Check repeat BNP * If patient's diuresis is optimized and patient still has considerable fluid on , will consider thoracentesis at that time 2. History of pulmonary embolus/DVT: * Patient unable to give history as to when he first had thrombus and if it was recurrent * Continues on anticoagulation with apixaban * Will ask that apixaban be held for 48 hours so we can perform thoracentesis * Would recommend monitoring on telemetry Thank you for including us in the care of this patient. We will continue to follow along with you for now. Please refer to Dr. Arceo's addendum for further recommendations. History of Present Illness Reason for Consultation: Unilateral lower sided pleural effusion Requesting Physician: Rosamaria Arellano PA-C Attending Physician: Galo Villela MD History of Present Illness Attending: Dr. Arceo This is a 76 yo male that has new left sided pleural effusion. He has a history of CAD with SONYA placement with Dr. Peterson in August 2020. He is currently on Plavix and apixaban. Further PMH includes, combined systolic/diastolic CHF on Beumex BID, depression, Hx of PE, anemia, chronic B/L LE gonsalo, chronic venous stasis, ischemic cardiomyopathy, arthitis, BPH, chronic bronchitis. Patient lives at [facility]. He was placed there as he was not able to care for himself at his own home. He has no pets. He denies any smoking hi story. He did serve in the [employer] for 2 years in [place] but was never deployed. He has no history of other pulmonary disease or exposure. He does have a history of pulmonary embolus. I do not see any evidence and imaging that he has had recurrent PE. CTA in March 2020 showed no evidence of pulmonary emboli. Patient was a [facility] in returning from a meal when he went to sit in his wheelchair and the brakes were not on. The wheelchair slipped out from behind him and he fell striking his head receiving an occipital wound. Patient was then admitted for acute on chronic combined systolic and diastolic heart failure with an elevated proBNP. He was given 1 dose of IV Bumex 2 mg in the emergency department. Otherwise, he has been on his home dose of Bumex 2 mg p.o. twice daily daily. Patient is having a slight increase in his creatinine but continues with good urine output. Patient has developed some shortness of breath with some hypoxia. CT of the chest yesterday revealed moderate to large left pleural effusion. This appears to be unilateral on review. Patient states that he has never had previous pleural effusion per his knowledge. He denies any previous thoracentesis. Patient does report he has chronic sternal chest pain which is exacerbated with palpitation. He has a history of previous CAD with most recent stent placement in March 2020. The patient is on clopidogrel as well as apixaban daily. Patient denies chronic supplemental oxygen use at home. Patient did receive Moderna Covid vaccination 11/02/2020 and 12/02/2020. I do not see a record of him receiving a booster. Allergies Allergy/AdvReac Type Severity Reaction Status Date / Time spironolactone AdvReac Severe Hyperkalemia, Verified 07/26/21 19:06 bradycardia Nwwbvac-HAN-PdO Reductase AdvReac Intermediate Myalgias Verified 07/26/21 19:06 Inhibitor [Bzvsmlr-Ppg-Xwm Reductase Inhibitor] Home Medications Medication Instructions Recorded Confirmed Type vitamins A,C,E-zxto-jplvjd 14,320 1 cap PO BID 05/11/19 07/26/21 History unit-226 mg-200 unit capsule (PreserVision AREDS) amiodarone 200 mg tablet (Pacerone) 200 mg PO HS 10/06/20 07/26/21 History sertraline 50 mg tablet (Zoloft) 50 mg PO QAM 11/14/20 07/26/21 History apixaban 5 mg tablet (Eliquis) 5 mg PO BID #180 tab 03/28/21 07/26/21 Rx clopidogrel 75 mg tablet (Plavix) 75 mg PO QAM 05/02/21 07/26/21 History nitroglycerin 0.4 mg sublingual 0.4 mg SL Q5M PRN 05/02/21 07/26/21 History tablet (Nitrostat) metoprolol succinate 50 mg capsule 50 mg PO BID #60 ea 05/13/21 07/26/21 Rx sprinkle, ext. release 24 hr tramadol 50 mg tablet 50 mg PO Q6H PRN 05/18/21 07/26/21 History albuterol sulfate 90 mcg/actuation 2 puff INHALATION Q6H PRN #6.7 g 06/26/21 07/26/21 Rx aerosol inhaler (Ventolin HFA) colestipol 1 gram tablet (Colestid) 2 g PO QAM tab 07/05/21 07/26/21 History allopurinol 100 mg tablet 100 mg PO DAILY #30 tab 07/24/21 07/26/21 Rx bumetanide 2 mg tablet 2 mg PO BID #120 tab 07/24/21 07/26/21 Rx bupropion HCl 100 mg tablet,12 hr 100 mg PO BID #60 ea 07/24/21 07/26/21 Rx sustained-release potassium chloride 20 mEq 20 meq PO DAILY #30 tab 07/24/21 07/26/21 Rx tablet,extended release(part/cryst) sacubitril 24 mg-valsartan 26 mg 1 tab PO BID #60 tab 07/24/21 07/26/21 Rx tablet (Entresto) rzgcnstu-hmq-gmgtq acid 300 1 tab PO DAILY 07/26/21 07/26/21 History mcg-lycopene 600 mcg-lutein 300 mcg tablet (Centrum Silver Men) Patient History Medical History (Updated 08/01/21 @ 17:17 by Rosamaria Arellano PA-C) Arthritis back, knees Atrial fibrillation New onset a. fib 08/2020 in setting of NSTEMI (which resulted in placement of 3 stents) Bilateral edema of lower extremity Bilateral pleural effusion Chronic anticoagulation Chronic systolic heart failure Coronary artery disease stent x1 (2006), stents x3 (08/2020) Diastolic CHF Newly diagnosed during 03/2020 admission, responded well to diuretics > di scharged on diuretics and referred to HF clinic per cardiology records Fall from standing Gout of ankle Hx of myocardial infarction 2006, NSTEMI (08/2020 > 3 stents) Ischemic cardiomyopathy Low back pain Lyme disease hx of 2018 Major depressive disorder Obesity Pulmonary embolism 5+ years ago Surgical History History of prostate biopsy S/P coronary artery stent placement stent x1 (2006), stents x3 (08/2020) Family History Family/Other Prostate cancer Father Heart disease Mother Bone cancer Sister Colon cancer Social History Smoking Status: Never smoker Second Hand Exposure: No; Hx Alcohol Use: No Hx Substance Use: No Preferred Language: Spanish Communication Ability: Effective Community Support Specialist Required: No Beliefs That Will Affect Care: None marital status: Single Current Living Situation: Snf current occupational status: retired Feels Safe at Home: Yes Diet Comment: Has special diet unsure what kind Assistive Devices: Glasses and Oxygen - Continuous Review of Systems Review of Systems: All systems reviewed & are unremarkable except as noted in Subjective Physical Exam Physical Exam: GENERAL : No acute distress. Patient is lying flat in bed and says that his back pain is so bad that he cannot easily move. He reports the back pain to be chronic. EYES: No icterus, gaze conjugate NOSE: No evidence of epistaxis MOUTH: No lesions or candidiasis NECK: Supple LUNGS: Bibasilar coarse crackles. No appreciation of rhonchi. No appreciation of bronchospasm. HEART: Regular, rate controlled ABDOMEN: Soft, NT, ND, BS Present EXTREMITIES: Bilateral LE edema, pedal pulses intact NEURO: A&OX3 Results & Data Results & Data ([facility]) Vital Signs (Past 12 Hours) Vital Signs Temp Pulse Resp BP Pulse Ox 08/01/21 07:49 36.8 C 95 H 18 102/65 96 Laboratory Results 08/01/21 06:33 08/01/21 06:[address] SCAN OF THE CHEST WITHOUT IV CONTRAST CLINICAL HISTORY: Hypoxia. Abnormal chest x-ray. COMPARISON STUDY: Chest x-ray dated 07/31/2021. Chest CT dated 03/07/2020. TECHNIQUE: CT scan of the thorax was performed from the thoracic inlet to the upper abdomen. Images are reviewed in the axial, sagittal, and coronal planes. IV contrast was not administered for this examination as per the referring clinician. A dose lowering technique was utilized adhering to the principles of ALARA. CT DOSE: 699.48 mGy.cm FINDINGS: Thyroid: Normal in size and heterogeneous in attenuation. Thoracic aorta: The thoracic aorta is normal in caliber and demonstrates standard 3-vessel arch anatomy. Heart: The heart is enlarged and without pericardial effusion. The coronary arteries are densely calcified. Lungs and pleural spaces: Evaluation of the lung parenchyma is degraded by motion artifact. 0There is a moderate left pleural effusion with atelectasis of the left lower lung. Trace pleural effusion is seen in the right. Patchy airspace consolidation is present throughout both lungs. There is no pneumothorax. The trachea and central airways appear clear. Mediastinum: Numerous mildly enlarged mediastinal lymph nodes measure up to 14 mm in short axis. These are likely reactive. Anita: Not well assessed without IV contrast. Axillae: There is no axillary lymphadenopathy. Upper abdomen: There is a small hiatal hernia. Partially visualized upper abd ominal viscera is within normal limits. Skeletal structures: The skeletal structures are osteopenic. 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 There is a complex horizontal/oblique fracture of the T4 vertebral body with mild loss of height. This involves the anterior and posterior cortex, and also reaches the anterior cortex. Fracture likely involves the T4-T5 disc space, and there is also fracture within the anterior right aspect of the T5 vertebral body. This involves the posterior elements of T5 including the right pedicle, the left pedicle and the left lamina. There is also likely fracture through the base of the right transverse process of T5. No lytic or blastic bony lesions are seen. Arthritic change is seen in the shoulders. There are subacute/healing fractures of the right posterior 9th and 10th ribs. IMPRESSION: 1. There is a complex and subacute appearing horizontal/oblique fracture through the body of T4 as detailed above with mild loss of height. This fracture extends through the T4-T5 disc space, and also involves the body and posterior elements of T5. This fracture is likely unstable. 2. There are subacute/healing right posterior 9th and 10th rib fractures. 3. Multifocal airspace consolidation seen throughout both lungs is typical for pneumonia. Clinical correlation will be required and radiographic follow-up to resolution is recommended. 4. Cardiomegaly. 5. Moderate left pleural effusion with atelectasis of the left lower lung. 6. Trace right pleural effusion. 7. Additional findings as above. ACT 112: Negative or not required by law. Electronically signed by: Nikolai Bacon M.D. 07/31/2021 6:[address] 08/01/21 08:56 CT thoracic spine wo con CLINICAL HISTORY: Evaluate T4 fracture COMPARISON STUDY: CT of the chest from 07/31/2021 CT DOSE: 1210.05 mGy.cm TECHNIQUE: Standard CT of the Thoracic Spine was performed without IV contrast. A dose lowering technique was utilized adhering to the principles of ALARA. FINDINGS: Bones: There is evidence for a pathologic fracture of the T4 vertebral body. There is evidence for a lytic, destructive lesion of the T4 vertebral body with a comminuted, pathologic fracture through the body of T4 which extends into the posterior arch of T4 and the posterior elements. There is no posterior extension of bone fragments into the spinal canal from the vertebral body. There is minimal anterior extension of bone fragments from the posterior arch of T4. However, there is no evidence for spinal cord compression. The overall fracture of the vertebral body is stable due to calcification of the anterior longitudinal ligaments at T3-4 and T4-5 along with involving the remainder of the thoracic spine. The fracture does extend transversely through the T4 vertebral body. There is only mild loss of height of the T4 vertebral rosalio dy. The heights of the remaining thoracic vertebral bodies are maintained. The vertebral bodies are in anatomic alignment. Disc spaces: Mild to moderate disc space narrowing is seen throughout the thoracic spine. Pedicles::The remaining pedicles are intact bilaterally. Soft tissues: There is only mild paraspinal soft tissue swelling present. IMPRESSION: MR findings most characteristic of a pathologic comminuted fracture of the T4 vertebral body as described above. The anterior fracture fragments are stabilized from calcification of the anterior longitudinal ligament at T3-4 and T4-5. There is mild displacement of the posterior fragments of the posterior spi nal arch. However, no cord compression is identified. ACT 112: Negative or not required by law. Electronically signed by: rTemayne Goldsmith M.D. 08/01/2021 10:47 AM PG Care Time/CCT Total # of Minutes Spent Total Time Spent with Patient: Total time spent is greater than 50% in coordination of care (as documented) at patient's floor/unit and/or counseling patient: 60 minutes Coding Level of Care Code 18047 Inpt Consult Level 4 Diagnoses Bilateral pleural effusion J90 Acute on chronic combined systolic and diastolic CHF (congestive heart failure) I50.43 Acute on chronic renal insufficiency N28.9; N18.9 Antiplatelet or antithrombotic long-term use Z79.02 Atrial fibrillation I48.19 Atrial fibrillation type: persistent (not longstanding) History of pulmonary embolus (PE) Z86.711 Time Spent (min) 60
[2021-08-01] MEDS ORDERED: metOLazone 2.5 MG TABLET PO ONE (13:00)
--- NOTE | 2021-08-01 14:30 | Orthopedic Consultation ---
Date of Consultation August 01, 2021 Assessment & Plan (1) Thoracic spine fracture: CAT scan obtained in this region does demonstrate evidence of a fracture through the body of T4. There does not appear to be any canal encroachment. Fracture very strange pattern. Could be pathologic or an old healing bony Chance fracture. I would ask to obtain an MRI of the thoracic spine. At this point I see no indication for surgical invention. History of Present Illness Reason for Consultation: T4 fracture Attending Physician: Galo Villela MD History of Present Illness This is a 76-year-old male who was admitted to the hospital for multiple medical issues and upon work-up obtained a CAT scan of the thoracic spine demonstrating potential fracture of T4. Upon my discussion with the day patient today. He states he has had several falls over the past year. He currently denies any interscapular upper thoracic pain. Denies any numbness and tingling to the upper or lower extremities. Allergies Allergy/AdvReac Type Severity Reaction Status Date / Time spironolactone AdvReac Severe Hyperkalemia, Verified 07/26/21 19:06 bradycardia Uckyjvu-AMU-CcU Reductase AdvReac Intermediate Myalgias Verified 07/26/21 19:06 Inhibitor [Uwrggsj-Ulj-Pay Reductase Inhibitor] Home Medications Medication Instructions Recorded Confirmed Type vitamins A,C,D-baak-emesug 14,320 1 cap PO BID 05/11/19 07/26/21 History unit-226 mg-200 unit capsule (PreserVision AREDS) amiodarone 200 mg tablet (Pacerone) 200 mg PO HS 10/06/20 07/26/21 History sertraline 50 mg tablet (Zoloft) 50 mg PO QAM 11/14/20 07/26/21 History apixaban 5 mg tablet (Eliquis) 5 mg PO BID #180 tab 03/28/21 07/26/21 Rx clopidogrel 75 mg tablet (Plavix) 75 mg PO QAM 05/02/21 07/26/21 History nitroglycerin 0.4 mg sublingual 0.4 mg SL Q5M PRN 05/02/21 07/26/21 History tablet (Nitrostat) metoprolol succinate 50 mg capsule 50 mg PO BID #60 ea 05/13/21 07/26/21 Rx sprinkle, ext. release 24 hr tramadol 50 mg tablet 50 mg PO Q6H PRN 05/18/21 07/26/21 History albuterol sulfate 90 mcg/actuation 2 puff INHALATION Q6H PRN #6.7 g 06/26/21 07/26/21 Rx aerosol inhaler (Ventolin HFA) colestipol 1 gram tablet (Colestid) 2 g PO QAM tab 07/05/21 07/26/21 History allopurinol 100 mg tablet 100 mg PO DAILY #30 tab 07/24/21 07/26/21 Rx bumetanide 2 mg tablet 2 mg PO BID #120 tab 07/24/21 07/26/21 Rx bupropion HCl 100 mg tablet,12 hr 100 mg PO BID #60 ea 07/24/21 07/26/21 Rx sustained-release potassium chloride 20 mEq 20 meq PO DAILY #30 tab 07/24/21 07/26/21 Rx tablet,extended release(part/cryst) sacubitril 24 mg-valsartan 26 mg 1 tab PO BID #60 tab 07/24/21 07/26/21 Rx tablet (Entresto) btocblai-spp-wxypp acid 300 1 tab PO DAILY 07/26/21 07/26/21 History mcg-lycopene 600 mcg-lutein 300 mcg tablet (Centrum Silver Men) Patient History Medical History (Updated 08/01/21 @ 14:34 by Ruel Zhou DO) Arthritis back, knees Atrial fibrillation New onset a. fib 08/2020 in setting of NSTEMI (which resulted in placement of 3 stents) Bilateral edema of lower extremity Bilateral pleural effusion Chronic anticoagulation Chronic systolic heart failure Coronary artery disease stent x1 (2006), stents x3 (08/2020) Diastolic CHF Newly diagnosed during 03/2020 admission, responded well to diuretics > discharged on diuretics and referred to HF clinic per cardiology records Fall from standing Gout of ankle Hx of myocardial infarction 2006, NSTEMI (08/2020 > 3 stents) Ischemic cardiomyopathy Low back pain Lyme disease hx of 2018 Major depressive disorder Obesity Pulmonary embolism 5+ years ago Surgical History History of prostate biopsy S/P coronary artery stent placement stent x1 (2006), stents x3 (08/2020) Family History Family/Other Prostate cancer Father Heart disease Mother Bone cancer Sister Colon cancer Social History Smoking Status: Never smoker Second Hand Exposure: No; Hx Alcohol Use: No Hx Substance Use: No Preferred Language: Malay Communication Ability: Effective Polarity Tester Required: No Beliefs That Will Affect Care: None marital status: Single Current Living Situation: Care Home current occupational status: retired Feels Safe at Home: Yes Diet Comment: Has special diet unsure what kind Assistive Devices: Glasses and Oxygen - Continuous Physical Exam Physical Exam: On exam he is alert and oriented cooperative. He is able to sit up without evidence of discomfort. I did assist him in this. He has no abnormal skin markings to the thoracic or lumbar spine. No pain to palpation or percussion of these regions. He is intact to testing lower extremities. Results & Data ([facility]) Vital Signs (Past 12 Hours) Vital Signs Temp Pulse Resp BP Pulse Ox 08/01/21 07:49 36.8 C 95 H 18 102/65 96
[2021-08-01] MEDS: ALBUT/IPRATROP 3MG/0.5MG NEB 3 ML VIAL NEB SCH ×2 (15:20→19:26)
[2021-08-01] MEDS: PIPERACILLIN/TAZOBACTAM 4.5 GM in DEXTROSE 5% 100 ML IV SCH (17:07)
--- NOTE | 2021-08-01 17:11 | Hospitalist Progress Note ---
Date of Service August 01, 2021 Assessment & Plan (1) Multifocal pneumonia: Plan: - Given his recent hospitalization 07/11 through 07/24 for a/c HF exacerbation he will require HAP coverage - Initiate Zosyn, Levaquin, and Vancomycin, all with renal adjustment - Mucinex - Routine Duonebs - Supplemental O2 - Incentive spirometry (2) Hypoxia: Plan: - Multifactoral -- multifocal PNA + bilateral L>R pleural effusions - Plan as outlined #1 and 3 (3) Bilateral pleural effusion: Plan: - Noted via CT scan to be moderate to large on L and small on R - Likely d/t CHF - Unfortunately, pt has not tolerated aggressive diuresis (uptrending creat, soft BP, downtrending Na+) - Currently on PO Bumex 2mg daily, held yesterday and day prior d/t soft BPs but able to be given today - Dose of Metolazone 2.5mg PO x1 ordered today, good output thus far of 1L - Pulmonology consulted, appreciate their assistance -- plan to repeat CXR on , hold Plavix and Eliquis in preparation for thoracentesis (4) Occipital scalp laceration: Plan: - D/T recent fall - Repaired in ED w/ michelle - [place] can be removed today - Continue local wound care (5) Thoracic spine fracture: Plan: - Incidentally found on CT chest w/o contrast - Dr. Zhou consulted, appreciate his assistance - Does not seem to be having pain associated with the fracture (only admits to low back pain which is chronic for him) - Ortho recommending MRI of thoracic spine for further investigation, no plans for surgical intervention currently (6) Acute kidney injury: Plan: - Chronic kidney disease stage 3 with a baseline creat of 1.9 - Mild CIRILO on CKD noted but Bumex held x 2 days and his creat is now approaching baseline - Will continue to monitor (7) Chronic renal failure, stage 3b: Plan: - Plan as per #6 (8) Chronic systolic heart failure: Plan: - Continue Bumex 2mg and increase back to BID - Pt is within 3 lbs of his dry weight according to his last note from Cardio when he was d/c'd on 07/24 (~109 kg) - Continue Toprol and Entresto - Leg edema is chronic -- he is to be wearing support stockings and keeping legs elevated as much as possible Plan: Pt with remote h/o PE (>5 yrs ago) and coronary artery stenting in 08/2020, will plan to hold Plavix and Eliquis to prepare for thoracentesis on . D/w Dr. Villela who is in agreement. Follow up labs tomorrow. F/u CXR on 08/03 PT/OT MRI as noted above CM for d/c planning -- pt not interested in returning to [facility] Admission and Anticipated Discharge Date Admission Date: July 26, 2021 Subjective Mr. Peterson was seen on rounds today. He is resting comfortably in bed and offers no new complaints. Pt remains hospitalized for hypoxia which was felt to be associated with acute exacerbation of CHF. He currently denies shortness of breath or chest pain at rest, n/v/d, f/c, headache, or gu symptoms. He has chronic LE edema. Pt came from [facility] but was voicing hesitation to returning there. PT recommending return to [facility]. Is still requiring supplemental O2, currently 3L. Pt admits to having ongoing cough, congestion for "months" that is productive of thick white sputum. Continues to have LOREDO. Review of Systems Review of Systems: CONSTITUTIONAL: Denies weight loss/gain, fever and chills, fatigue, malaise, generalized weakness. HEENT: Denies changes in vision and hearing. RESPIRATORY: +LOREDO and productive cough. Denies SOB at rest, wheezing. CV: +LE edema. Denies palpitations, CP, orthopnea, PND. GI: Denies abdominal pain, nausea, vomiting and diarrhea. : Denies dysuria and urinary frequency, urgency, hesitancy. MUSCULOSKELETAL: +low back pain (chronic). Denies myalgia and joint pain. SKIN: Denies rash and pruritus. NEUROLOGICAL: Denies headache, syncope, focal weakness, numbness, tingling. PSYCHIATRIC: Denies recent changes in mood. Denies anxiety and depression. Physical Exam Physical Exam: GENERAL: 76 yo elderly WM. WD/WN pleasant. NAD. LUNGS: Diminished in LLL. Crackles in R base. No rhonchi or wheezes noted. CARDIOVASCULAR: Regular rate and rhythm. No M/G/R. No JVD. ABDOMEN: Soft, non-tender. No palpable masses. Bowel sounds normoactive x 4 quad. EXTREMITIES: +2 to +3 pitting edema. Non-tender. Peripheral pulses +2/4. PSYCHIATRIC: Cooperative. Appropriate mood and affect. SKIN: Warm, dry, intact. No rashes or lesions. Results & Data Results & Data ([facility]) Vital Signs (Past 12 Hours) Vital Signs Temp Pulse Resp BP Pulse Ox 08/01/21 15:58 94 H 18 96 08/01/21 07:49 36.8 C 95 H 18 102/65 96 Laboratory Results 08/01/21 06:33 08/01/21 06:[address] 07/31/21 17:01 CT SCAN OF THE CHEST WITHOUT IV CONTRAST CLINICAL HISTORY: Hypoxia. Abnormal chest x-ray. COMPARISON STUDY: Chest x-ray dated 07/31/2021. Chest CT dated 03/07/2020. TECHNIQUE: CT scan of the thorax was performed from the thoracic inlet to the upper abdomen. Images are reviewed in the axial, sagittal, and coronal planes. IV contrast was not administered for this examination as per the referring clinician. A dose lowering technique was utilized adhering to the principles of ALARA. CT DOSE: 699.48 mGy.cm FINDINGS: Thyroid: Normal in size and heterogeneous in attenuation. Thoracic aorta: The thoracic aorta is normal in caliber and demonstrates standard 3-vessel arch anatomy. Heart: The heart is enlarged and without pericardial effusion. The coronary arteries are densely calcified. Lungs and pleural spaces: Evaluation of the lung parenchyma is degraded by motion artifact. 0There is a moderate left pleural effusion with atelectasis of the left lower lung. Trace pleural effusion is seen in the right. Patchy airspace consolidation is present throughout both lungs. There is no pneumoth orax. The trachea and central airways appear clear. Mediastinum: Numerous mildly enlarged mediastinal lymph nodes measure up to 14 mm in short axis. These are likely reactive. Anita: Not well assessed without IV contrast. Axillae: There is no axillary lymphadenopathy. Upper abdomen: There is a small hiatal hernia. Partially visualized upper abdominal viscera is within normal limits. Skeletal structures: The skeletal structures are osteopenic. 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 There is a complex horizontal/oblique fracture of the T4 vertebral body with mild loss of height. This involves the anterior and posterior cortex, and also reaches the anterior cortex. Fracture likely involves the T4-T5 disc space, and there is also fracture within the anterior right aspect of the T5 vertebral body. This involves the posterior elements of T5 including the right pedicle, the left pedicle and the left lamina. There is also likely fracture through the base of the right transverse process of T5. No lytic or blastic bony lesions are seen. Arthritic change is seen in the shoulders. There are subacute/healing fractures of the right posterior 9th and 10th ribs. IMPRESSION: 1. There is a complex and subacute appearing horizontal/oblique fracture through the body of T4 as detailed above with mild loss of height. This fracture extends through the T4-T5 disc space, and also involves the body and posterior elements of T5. This fracture is likely unstable. 2. There are subacute/healing right posterior 9th and 10th rib fractures. 3. Multifocal airspace consolidation seen throughout both lungs is typical for pneumonia. Clinical correlation will be required and radiographic follow-up to resolution is recommended. 4. Cardiomegaly. 5. Moderate left pleural effusion with atelectasis of the left lower lung. 6. Trace right pleural effusion. 7. Additional findings as above. ACT 112: Negative or not required by law. Electronically signed by: Nikolai Bacon M.D. 07/31/2021 6:[address] 08/01/21 08:56 CT thoracic spine wo con CLINICAL HISTORY: Evaluate T4 fracture COMPARISON STUDY: CT of the chest from 07/31/2021 CT DOSE: 1210.05 mGy.cm TECHNIQUE: Standard CT of the Thoracic Spine was performed without IV contrast. A dose lowering technique was utilized adhering to the principles of ALARA. FINDINGS: Bones: There is evidence for a pathologic fracture of the T4 vertebral body. There is evidence for a lytic, destructive lesion of the T4 vertebral body with a comminuted, pathologic fracture through the body of T4 which extends into the posterior arch of T4 and the posterior elements. There is no posterior extension of bone fragments into the spinal canal from the vertebral body. There is minimal anterior extension of bone fragments from the posterior arch of T4. However, there is no evidence for spinal cord compression. The overall fracture of the vertebral body is stable due to calcification of the anterior longitudinal ligaments at T3-4 and T4-5 along with involving the remainder of the thoracic spine. The fracture does extend transversely through the T4 vertebral body. There is only mild loss of height of the T4 vertebral body. The heights of the remaining thoracic vertebral bodies are maintained. The vertebral bodies are in anatomic alignment. Disc spaces: Mild to moderate disc space narrowing is seen throughout the thoracic spine. Pedicles::The remaining pedicles are intact bilaterally. Soft tissues: There is only mild paraspinal soft tissue swelling present. IMPRESSION: MR findings most characteristic of a pathologic comminuted fracture of the T4 vertebral body as described above. The anterior fracture fragments are stabilized from calcification of the anterior longitudinal ligament at T3-4 and T4-5. There is mild displacement of the posterior fragments of the posterior spinal arch. However, no cord compression is identified. ACT 112: Negative or not required by law. Electronically signed by: Tremayne Goldsmith M.D. 08/01/2021 10:47 AM PG Care Time/CCT Total # of Minutes Spent Total Time Spent with Patient: Total time spent is greater than 50% in coordination of care (as documented) at patient's floor/unit and/or counseling patient: Coding Level of Care Code 17257 Subseq Hosp Care Lvl 2 Diagnoses Multifocal pneumonia J18.9 Thoracic spine fracture S22.009A Hypoxia R09.02 Bilateral pleural effusion J90 Occipital scalp laceration S01.01XA Encounter type: initial encounter Chronic renal failure, stage 3b N18.32 Acute kidney injury N17.9 Chronic systolic heart failure I50.22 (1) Occipital scalp laceration Encounter type: initial encounter Qualified Code(s): S01.01XA - Laceration without foreign body of scalp, initial encounter
[2021-08-01] MEDS: guaiFENesin 600 MG TABCR PO SCH (21:30)
[2021-08-01] MEDS: AMIODARONE 200 MG TAB PO SCH (21:30)
[2021-08-02] MEDS ORDERED: GADOBUTROL 65ML VIAL IV ONE (00:37)
[2021-08-02] MEDS: PIPERACILLIN/TAZOBACTAM 4.5 GM in DEXTROSE 5% 100 ML IV SCH ×3 (01:04→16:33)
[2021-08-02] MEDS: ALBUT/IPRATROP 3MG/0.5MG NEB 3 ML VIAL NEB SCH ×4 (07:10→19:01)
[2021-08-02 07:45] LABS: BUN Creatinine Ratio 26.8 (10-20); Calcium 9.5 mg/dl (8.5-10.1); Creatinine Clr Calc Pharmacy 32.6 ml/min; Est GFR (Non-African American) 25.9 ml/min; Magnesium 2.3 mg/dl (1.8-2.4)
[2021-08-02] MEDS: allopurinoL 100 MG TAB PO SCH (08:35)
[2021-08-02] MEDS: LORATADINE 10 MG TAB PO SCH (08:36)
[2021-08-02] MEDS: BUMETANIDE 1 MG TAB PO SCH (08:36)
[2021-08-02] MEDS: buPROPion SR 100 MG TABCR PO SCH ×2 (08:36→21:07)
[2021-08-02] MEDS: EUCERIN CR 120 GM JAR EXT SCH ×2 (08:37→21:08)
[2021-08-02] MEDS: SERTRALINE HCL 50 MG TABLET PO SCH (08:37)
[2021-08-02] MEDS: VALSARTAN/SACUBITRIL 26/24MG TAB PO SCH ×2 (08:37→21:09)
[2021-08-02] MEDS: POTASSIUM CHLORIDE CRTAB 20 MEQ TABCR PO SCH ×2 (08:38→21:10)
[2021-08-02] MEDS: guaiFENesin 600 MG TABCR PO SCH ×2 (08:38→21:07)
[2021-08-02] MEDS: METOPROLOL SUCC 50MG EXT REL TAB PO SCH ×2 (08:38→21:08)
[2021-08-02] MEDS: PSYLLIUM 58.6% POWDER PACKET PO SCH (08:39)
[2021-08-02] MEDS: VANCOMYCIN HCL 1,000 MG in SODIUM CHLORIDE 0.9% 250 ML IV SCH (08:43)
--- NOTE | 2021-08-02 10:40 | Magnetic Resonance Report ---
MRI OF THE THORACIC SPINE WITH AND WITHOUT CONTRAST CLINICAL HISTORY: rule out pathologic fracture COMPARISON: Thoracic spine CT August 01, 2021. TECHNIQUE: Utilizing a 1.5 Tuyet magnet and dedicated coil, multiplanar, multiecho imaging of the th oracic spine was performed before and after the intravenous administration of 11 cc. FINDINGS: Alignment of the thoracic spine is anatomic. Extensive anterior osteophytosis is noted. Thi s is better depicted on thoracic spine CT. Note is made of an oblique transverse fracture through the T4 vertebral body without significant loss of vertebral body height. There is associated marrow gonsalo a and enhancement of the fracture is likely subacute when correlating with CT. Fracture extends into the posterior elements of T5, involving the right pedicle and bilateral superior articulating facets. Fracture may also slightly extends into the spinous process of T4. There is mild associated epidural enhancement. There is no epidural fluid collection. Thoracic cord signal suboptimally assessed on th is exam but likely within normal limits. There is an old T2 fracture. No acute thoracic spine fractur e is noted. A few T1 and T2 hyperintense lesions within the thoracic spine represent hemangiomas. The re is no suspicious marrow replacement. A left pleural effusion and airspace opacities within lungs a re better depicted on prior chest CT. IMPRESSION: 1. Oblique transverse fracture through T4 which extends through the posterior elements of T5, as desc ribed above. This represents a 3 column fracture which may be unstable. When correlating with recent CT, this fracture is likely subacute and may represent a developing pseudarthrosis in the setting of ankylosing spondylitis or diffuse idiopathic skeletal hyperostosis. Edema and enhancement along the f racture, including within the posterior epidural space. No epidural fluid collection. No evidence for pathologic fracture. 2. Normal thoracic cord signal and caliber. 3. Old T2 fracture. ACT 112: Negative or not required by law. Electronically signed by: Choco Davidson M.D. 08/02/2021 10:39 AM
[2021-08-02] MEDS: COLESTIPOL HCL 1 GM TAB PO SCH (10:52)
--- NOTE | 2021-08-02 12:26 | XRay Report ---
SINGLE VIEW CHEST CLINICAL HISTORY: Pleural effusion. Congestive heart failure. Hypotension. FINDINGS: An AP, portable, upright chest radiograph is compared to chest x-ray and chest CT dated . The heart is enlarged noting atherosclerotic calcification of the thoracic aorta. There is p ulmonary vascular congestion. Airspace opacities are present throughout both lungs. There is a layeri ng left pleural effusion with associated left basilar consolidation. Trace pleural effusion is noted on the right. No pneumothorax is seen. The skeletal structures are osteopenic. The bony thorax is harjinder ssly intact. IMPRESSION: 1. Cardiomegaly with pulmonary vascular congestion. 2. Bilateral airspace opacities could represent mild pulmonary edema versus an infectious/inflammator y pneumonitis. This is similar to 07/31/2021. 3. Left larger than right pleural effusions ACT 112: Negative or not required by law. Electronically signed by: Nikolai Bacon M.D. 08/02/2021 12:25 PM
[2021-08-02] MEDS ORDERED: SODIUM CHLORIDE 0.9% 500 ML IV SCH (13:30)
--- NOTE | 2021-08-02 13:39 | Hospitalist Progress Note ---
Date of Service August 02, 2021 Assessment & Plan (1) Multifocal pneumonia: Plan: - Given his recent hospitalization 07/11 thru 07/24 for a/c HF exacerbation he will require HAP coverage - IV abx started w/ Zosyn, Levaquin, and Vancomycin (all with renal adjustment) - Mucinex 600mg BID - Routine Duonebs QID - Supplemental O2 - Incentive spirometry (2) Hypoxia: Plan: - Multifactoral -- multifocal PNA + bilateral L>R pleural effusions - Plan as outlined #1 and 3 (3) Bilateral pleural effusion: Plan: - Noted via CT scan to be moderate to large on L and small on R - Likely d/t CHF - Unfortunately, pt has not tolerated aggressive diuresis (uptrending creat, soft BP, downtrending Na+) - Currently on PO Bumex 2mg daily - Dose of Metolazone 2.5mg PO x1 given 08/01 with good response - Pulmonology consulted, appreciate their assistance -- plan to repeat CXR on , hold Plavix and Eliquis in preparation for thoracentesis (4) Occipital scalp laceration: Plan: - D/T recent fall - Repaired in ED w/ michelle - [place] removed 08/01 - Continue local wound care (5) Thoracic spine fracture: Plan: - Incidentally found on CT chest w/o contrast - Dr. Zhou consulted, appreciate his assistance - Does not seem to be having pain associated with the fracture (only admits to low back pain which is chronic for him) - MRI performed, results as noted above, await further input from Dr. Zhou (6) Acute kidney injury: Plan: - Chronic kidney disease stage 3 with a baseline creat of 1.9 - Mild CIRILO on CKD noted but may need to establish a higher baseline to keep pt out of HF - Will continue to monitor (7) Chronic renal failure, stage 3b: Plan: - Plan as per #6 (8) Chronic systolic heart failure: Plan: - Continue Bumex 2mg currently on once daily and tolerating - Pt is within 3 lbs of his dry weight according to his last note from Cardio when he was d/c'd on 07/24 (~109 kg) - Continue Toprol and Entresto (hold parameters in place) - Leg edema is chronic -- he is to be wearing support stockings and keeping legs elevated as much as possible - Pt still having PVC findings on imaging, but will not tolerate more aggressive diuresis d/t soft BP Plan: Pt with remote h/o PE (>5 yrs ago) and coronary artery stenting in 08/2020, Plavix and Eliquis on hold to prepare for thoracentesis tomorrow. D/w Dr. Low zarate who is in agreement. Follow up labs tomorrow. Continue PT/OT CM for d/c planning -- pt not interested in returning to [facility]. Will send referrals to other facilities. Admission and Anticipated Discharge Date Admission Date: July 26, 2021 Subjective Mr. Peterson was seen on rounds today. He is resting comfortably in bed and offers no new complaints. Pt remains hospitalized for hypoxia which was initially felt to be associated with acute exacerbation of CHF. However, after repeat imaging with CT chest, he was noted to have multifocal PNA, bilateral (L>R) pleural effusions, and incidental finding of a T4 fx. The size of the L pleural effusion is moderate to large and likely causing a degree of compressive atelectasis. He currently denies shortness of breath or chest pain at rest, but continues to get winded easily with exertion. He denies n/v/d, f/c, headache, or gu symptoms. He has chronic LE edema but feels that they have improved recently. Pt came from [facility] but was voicing hesitation to returning there. PT recommending return to [facility]. Is still requiring supplemental O2, but currently weaned down to 2L w/ pulse ox of 98%. Review of Systems Review of Systems: CONSTITUTIONAL: Denies weight loss/gain, fever and chills, fatigue, malaise, generalized weakness. HEENT: Denies changes in vision and hearing. RESPIRATORY: +LOREDO and productive cough. Denies SOB at rest, wheezing. CV: +LE edema. Denies palpitations, CP, orthopnea, PND. GI: Denies abdominal pain, nausea, vomiting and diarrhea. : Denies dysuria and urinary frequency, urgency, hesitancy. MUSCULOSKELETAL: +low back pain (chronic). Denies myalgia and joint pain. SKIN: Denies rash and pruritus. NEUROLOGICAL: Denies headache, syncope, focal weakness, numbness, tingling. PSYCHIATRIC: Denies recent changes in mood. Denies anxiety and depression. Physical Exam Physical Exam: GENERAL: 76 yo elderly WM. WD/WN pleasant. NAD. LUNGS: Diminished in LLL. Crackles in R base. No rhonchi or wheezes noted. CARDIOVASCULAR: Regular rate and rhythm. No M/G/R. No JVD. ABDOMEN: Soft, non-tender. No palpable masses. Bowel sounds normoactive x 4 quad. EXTREMITIES: +2 to +3 pitting edema. Non-tender. Peripheral pulses +2/4. PSYCHIATRIC: Cooperative. Appropriate mood and affect. SKIN: Warm, dry, intact. No rashes or lesions. Results & Data Results & Data ([facility]) Vital Signs (Past 12 Hours) Vital Signs Temp Pulse Pulse Resp BP Pulse Ox 08/02/21 10:45 79 19 98 08/02/21 07:11 82 20 95 08/02/21 06:55 36.4 C L 83 22 89/50 L 93 Laboratory Results 08/01/21 06:33 08/02/21 06:38 Diagnostic Findings Thoracic Spine MRI 08/01/21 14:35 MRI OF THE THORACIC SPINE WITH AND WITHOUT CONTRAST CLINICAL HISTORY: rule out pathologic fracture COMPARISON: Thoracic spine CT August 01, 2021. TECHNIQUE: Utilizing a 1.5 Tuyet magnet and dedicated coil, multiplanar, multi echo imaging of the thoracic spine was performed before and after the intravenous administration of 11 cc. FINDINGS: Alignment of the thoracic spine is anatomic. Extensive anterior osteophytosis is noted. This is better depicted on thoracic spine CT. Note is made of an oblique transverse fracture through the T4 vertebral body without significant loss of vertebral body height. There is associated marrow edema and enhancement of the fracture is likely subacute when correlating with CT. Fracture extends into the posterior elements of T5, involving the right pedicle and bilateral superior articulating facets. Fracture may also slightly extends into the spinous process of T4. There is mild associated epidural enhancement. There is no epidural fluid collection. Thoracic cord signal suboptimally assessed on this exam but likely within normal limits. There is an old T2 fracture. No acute thoracic spine fracture is noted. A few T1 and T2 hyperintense lesions within the thoracic spine represent hemangiomas. There is no suspicious marrow replacement. A left pleural effusion and airspace opacities within lungs are better depicted on prior chest CT. IMPRESSION: 1. Oblique transverse fracture through T4 which extends through the posterior elements of T5, as described above. This represents a 3 column fracture which may be unstable. When correlating with recent CT, this fracture is likely subacute and may represent a developing pseudarthrosis in the setting of ankylosing spondylitis or diffuse idiopathic skeletal hyperostosis. Edema and enhancement along the fracture, including within the posterior epidural space. No epidural fluid collection. No evidence for pathologic fracture. 2. Normal thoracic cord signal and caliber. 3. Old T2 fracture. ACT 112: Negative or not required by law. Electronically signed by: Choco Davidson M.D. 08/02/2021 10:39 AM Chest X-Ray 08/02/21 11:27 SINGLE VIEW CHEST CLINICAL HISTORY: Pleural effusion. Congestive heart failure. Hypotension. FINDINGS: An AP, portable, upright chest radiograph is compared to chest x-ray and chest CT dated 07/31/2021. The heart is enlarged noting atherosclerotic calcification of the thoracic aorta. There is pulmonary vascular congestion. Airspace opacities are present throughout both lungs. There is a layering left pleural effusion with associated left basilar consolidation. Trace pleural effusion is noted on the right. No pneumothorax is seen. The skeletal structures are osteopenic. The bony thorax is grossly intact. IMPRESSION: 1. Cardiomegaly with pulmonary vascular congestion. 2. Bilateral airspace opacities could represent mild pulmonary edema versus an infectious/inflammatory pneumonitis. This is similar to 07/31/2021. 3. Left larger than right pleural effusions ACT 112: Negative or not required by law. Electronically signed by: Nikolai Bacon M.D. 08/02/2021 12:25 PM PG Care Time/CCT Total # of Minutes Spent Total Time Spent with Patient: Total time spent is greater than 50% in coordination of care (as documented) at patient's floor/unit and/or counseling patient: Coding Level of Care Code 78624 Subseq Hosp Care Lvl 2 Diagnoses Multifocal pneumonia J18.9 Hypoxia R09.02 Bilateral pleural effusion J90 Occipital scalp laceration S01.01XA Encounter type: initial encounter Thoracic spine fracture S22.009A Acute kidney injury N17.9 Chronic renal failure, stage 3b N18.32 Chronic systolic heart failure I50.22 (1) Occipital scalp laceration Encounter type: initial encounter Qualified Code(s): S01.01XA - Laceration without foreign body of scalp, initial encounter
[2021-08-02] MEDS: AMIODARONE 200 MG TAB PO SCH (21:07)
[2021-08-03] MEDS: PIPERACILLIN/TAZOBACTAM 4.5 GM in DEXTROSE 5% 100 ML IV SCH ×3 (00:30→16:05)
[2021-08-03] MEDS: ALBUT/IPRATROP 3MG/0.5MG NEB 3 ML VIAL NEB SCH ×4 (07:22→19:05)
[2021-08-03] MEDS: buPROPion SR 100 MG TABCR PO SCH ×2 (08:17→22:03)
[2021-08-03] MEDS: allopurinoL 100 MG TAB PO SCH (08:17)
[2021-08-03] MEDS: guaiFENesin 600 MG TABCR PO SCH ×2 (08:17→22:26)
[2021-08-03] MEDS: POTASSIUM CHLORIDE CRTAB 20 MEQ TABCR PO SCH ×2 (08:17→22:29)
[2021-08-03] MEDS: METOPROLOL SUCC 50MG EXT REL TAB PO SCH ×2 (08:17→22:27)
[2021-08-03] MEDS: SERTRALINE HCL 50 MG TABLET PO SCH (08:17)
[2021-08-03] MEDS: PSYLLIUM 58.6% POWDER PACKET PO SCH (08:18)
[2021-08-03] MEDS: VALSARTAN/SACUBITRIL 26/24MG TAB PO SCH ×2 (08:18→22:02)
[2021-08-03] MEDS: EUCERIN CR 120 GM JAR EXT SCH ×2 (08:18→22:03)
[2021-08-03] MEDS: BUMETANIDE 1 MG TAB PO SCH ×2 (08:18→22:03)
[2021-08-03] MEDS: LORATADINE 10 MG TAB PO SCH (08:18)
[2021-08-03] MEDS ORDERED: VANCOMYCIN TROUGH ONE (08:30)
[2021-08-03 09:18] LABS: Basophils # (auto) 0.03 K/uL (0-0.2); Basophils % (auto) 0.3 %; Eosinophils # (auto) 0.45 K/uL (0-0.5); Eosinophils % (auto) 4.5 %; Hematocrit (blood only) 29.2 % (42-52); Hemoglobin 9.1 g/dL (14.0-18.0); Immature Granulocytes # (auto) 0.03 K/uL (0.00-0.02); Immature Granulocytes % (auto) 0.3 %; Lymphocytes # (auto) 0.72 K/uL (1.2-3.4); Lymphocytes % (auto) 7.2 %; Mean Corpuscular Hemoglobin 29.1 pg (25-34); Mean Corpuscular Volume 93.3 fL (80-100); Mean Platelet Volume 9.8 fL (7.4-10.4); Monocytes # (auto) 0.27 K/uL (0.11-0.59); Monocytes % (auto) 2.7 %; Neutrophils # (auto) 8.49 K/uL (1.4-6.5); Platelet Count 367 K/uL (130-400); RDW Coefficient of Variation 20.4 % (11.5-14.5); RDW Standard Deviation 69.1 fL (36.4-46.3); Red Blood Count 3.13 M/uL (4.7-6.1); White Blood Count 9.99 K/uL (4.8-10.8)
[2021-08-03 09:26] LABS: Mean Corpuscular Hgb Conc 31.2 g/dL (32-36)
[2021-08-03 09:38] LABS: BUN Creatinine Ratio 25.2 (10-20); Calcium 9.2 mg/dl (8.5-10.1); Creatinine Clr Calc Pharmacy 31.8 ml/min; Est GFR (African American) 29.5 ml/min; Est GFR (Non-African American) 25.5 ml/min; Potassium 4.6 mmol/L (3.5-5.1)
[2021-08-03] MEDS: COLESTIPOL HCL 1 GM TAB PO SCH (09:39)
[2021-08-03] MEDS: VANCOMYCIN HCL 1,000 MG in SODIUM CHLORIDE 0.9% 250 ML IV SCH (09:40)
--- NOTE | 2021-08-03 10:33 | Pharmacy Report ---
Pharmacy Vanc AUC Short Note - Date of Service August 03, 2021 - Assessment & Plan Assessment 76 year old M receiving IV Vancomycin, Zosyn, and Levaquin for treatment of multifocal pneumonia, recent hospitalization 07/11 thru 07/24 requires HAP coverage. Pertinent microbiologic data includes: Positive MRSA Nasal Swab Day # 8 of antimicrobial therapy. Repeat CXR and Thoracentesis for today per pulmonology. Plan Vancomycin * AUC/CODY is the preferred PK/PD target for vancomycin * AUC guided dosing is effective and associated with decreased risk of nephrotoxicity compared to traditional trough targets * Trough level of 21.4 mcg/mL is predicted to achieve target AUC/CODY of 400-600 mg/L.hr * Due to decrease in renal function and accumulation, decrease dose to 750mg IV Q24 hours, may be associated with a 13 % risk of nephrotoxicity * Trough level ordered for: 08/06/21 Zosyn * 4.5g IV Q8H For CrCl > 20ml/min and BMI 35 Levaquin * 750mg IV Q48H for CrCl < 50ml/min Pharmacy will continue to follow and will adjust dose/frequency as necessary. Thank you.
[2021-08-03] MEDS: levoFLOXacin/D5W 750 MG/150 ML BAG IV SCH (11:59)
--- NOTE | 2021-08-03 14:08 | Hospitalist Progress Note ---
Date of Service August 03, 2021 Assessment & Plan (1) Multifocal pneumonia: Plan: - Given his recent hospitalization 07/11 thru 07/24 for a/c HF exacerbation he will require HAP coverage - IV abx --> Zosyn, Levaquin, and Vancomycin (all with renal adjustment), transition to oral Levaquin in AM q48h x 4 days - Mucinex 600mg BID - Routine Duonebs QID - Supplemental O2 - Incentive spirometry (2) Hypoxia: Plan: - Multifactoral -- multifocal PNA + bilateral L>R pleural effusions - Plan as outlined #1 and 3 (3) Bilateral pleural effusion: Plan: - Noted via CT scan to be moderate to large on L and small on R - Likely d/t CHF - Unfortunately, pt has not tolerated aggressive diuresis (uptrending creat, soft BP, downtrending Na+) - Currently on PO Bumex 2mg, BP better today, will increase back to BID - Dose of Metolazone 2.5mg PO x1 given 08/01 with good response - Pulmonology consulted, appreciate their assistance -- Plavix and Eliquis held in preparation for thoracentesis which is to be done today. (4) Occipital scalp laceration: Plan: - D/T recent fall - Repaired in ED w/ michelle - [place] removed 08/01 - Continue local wound care (5) Thoracic spine fracture: Plan: - Incidentally found on CT chest w/o contrast - Dr. Zhou consulted, appreciate his assistance - Does not seem to be having pain associated with the fracture (only admits to low back pain which is chronic for him) - MRI performed, results noted, no plan for surgical intervention at this time (6) Acute kidney injury: Plan: - Chronic kidney disease stage 3 with a baseline creat of 1.9 - Mild CIRILO on CKD noted but may need to establish a higher baseline to keep pt out of HF - Will continue to monitor (7) Chronic renal failure, stage 3b: Plan: - Plan as per #6 (8) Chronic systolic heart failure: Plan: - Continue Bumex 2mg with increase back to his BID dosing - Pt dry weight according to his last note from Cardio when he was d/c'd on 07/24 (~109 kg) - Continue Toprol and Entresto (hold parameters in place) - Leg edema is chronic -- he is to be wearing support stockings and keeping legs elevated as much as possible Plan: Pt with remote h/o PE (>5 yrs ago) and coronary artery stenting in 08/2020, Plavix and Eliquis on hold for procedure. Resume Eliquis in AM and Plavix in 48 hrs. Follow up labs tomorrow. Continue PT/OT CM for d/c planning -- back to [facility] when medically stable Admission and Anticipated Discharge Date Admission Date: July 26, 2021 Subjective Mr. Peterson was seen on rounds today. He is resting comfortably in bed and offers no new complaints. Pt remains hospitalized for hypoxia which was initially felt to be associated with acute exacerbation of CHF. However, after repeat imaging with CT chest, he was noted to have multifocal PNA, bilateral (L>R) pleural effusions, and incidental finding of a T4 fx. The size of the L pleural effusion is moderate to large and likely causing a degree of compressive atelectasis. He currently denies shortness of breath or chest pain at rest, but continues to get winded easily with exertion. He denies n/v/d, f/c, headache, or gu symptoms. He has chronic LE edema but feels that they have improved recently. Pt came from [facility], has voiced some hesitation in returning there, but is willing as he understands that beds at other facilities are tight. Is still requiring supplemental O2, but currently weaned down to 2L with pulse ox in the 90s. Review of Systems Review of Systems: CONSTITUTIONAL: Denies weight loss/gain, fever and chills, fatigue, malaise, generalized weakness. HEENT: Denies changes in vision and hearing. RESPIRATORY: +LOREDO and productive cough. Denies SOB at rest, wheezing. CV: +LE edema. Denies palpitations, CP, orthopnea, PND. GI: Denies abdominal pain, nausea, vomiting and diarrhea. : Denies dysuria and urinary frequency, urgency, hesitancy. MUSCULOSKELETAL: +low back pain (chronic). Denies myalgia and joint pain. SKIN: Denies rash and pruritus. NEUROLOGICAL: Denies headache, syncope, focal weakness, numbness, tingling. PSYCHIATRIC: Denies recent changes in mood. Denies anxiety and depression. Physical Exam Physical Exam: GENERAL: 76 yo elderly WM. WD/WN pleasant. NAD. LUNGS: Diminished in LLL. Bibasilar crackles. No rhonchi or wheezes noted. CARDIOVASCULAR: Regular rate and rhythm. No M/G/R. No JVD. ABDOMEN: Soft, non-tender. No palpable masses. Bowel sounds normoactive x 4 quad. EXTREMITIES: +2 to +3 pitting edema. Non-tender. Peripheral pulses +2/4. PSYCHIATRIC: Cooperative. Appropriate mood and affect. SKIN: Warm, dry, intact. No rashes or lesions. Results & Data Results & Data ([facility]) Vital Signs (Past 12 Hours) Vital Signs Temp Pulse Pulse Resp BP Pulse Ox 08/03/21 11:02 95 H 18 91 08/03/21 07:23 91 H 18 95 08/03/21 07:12 36.6 C 90 20 111/64 93 Laboratory Results 08/03/21 08:59 08/03/21 08:59 creat 2.37 PG Care Time/CCT Total # of Minutes Spent Total Time Spent with Patient: Total time spent is greater than 50% in coordination of care (as documented) at patient's floor/unit and/or counseling patient: Coding Level of Care Code 49341 Subseq Hosp Care Lvl 2 Diagnoses Multifocal pneumonia J18.9 Hypoxia R09.02 Bilateral pleural effusion J90 Occipital scalp laceration S01.01XA Encounter type: initial encounter Thoracic spine fracture S22.009A Acute kidney injury N17.9 Chronic renal failure, stage 3b N18.32 Chronic systolic heart failure I50.22 (1) Occipital scalp laceration Encounter type: initial encounter Qualified Code(s): S01.01XA - Laceration without foreign body of scalp, initial encounter
[2021-08-03] MEDS: AMIODARONE 200 MG TAB PO SCH (22:26)
--- NOTE | 2021-08-03 23:04 | Pulmonology Progress Note ---
Date of Service August 03, 2021 Assessment & Plan (1) Bilateral pleural effusion: (2) Acute on chronic combined systolic and diastolic CHF (congestive heart failure): (3) Acute on chronic renal insufficiency: (4) Antiplatelet or antithrombotic long-term use: (5) Atrial fibrillation: Atrial fibrillation type: persistent (not longstanding) Qualified Code(s): I48.19 - Other persistent atrial fibrillation (6) History of pulmonary embolus (PE): Plan: Attending: Dr. Arceo Impression: This is a 76-year-old male with past medical history as indicated above. He was admitted for fall and found to have exacerbation of chronic systolic/diastolic congestive heart failure. proBNP was elevated. Patient received 1 dose of IV Bumex in the emergency department and is currently on his home dose of Bumex 2 mg p.o. twice daily. Since admission, patient has developed some shortness of breath with mild hypoxia. CT of the chest without contrast reveals moderate left pleural effusion with trace right pleural effusion. Patient most likely would benefit from thoracentesis but is currently on clopidogrel and apixaban which has been held since Saturday. Patient denies acute distress or previous incident of pleural effusion or thoracentesis. Recommendations: 1. Bilateral pleural effusions: * Trace effusion on the right with moderate effusion on the left * Patient continues with persistent left pleural effusion. * Anticoagulation antiplatelet therapy held since Saturday. * Will perform thoracentesis tomorrow morning 2. History of pulmonary embolus/DVT: * Patient unable to give history as to when he first had thrombus and if it was recurrent * Continues on anticoagulation with apixaban * Apixaban has beenheld for 48 hours so we can perform thoracentesis Thank you for including us in the care of this patient. We will continue to follow along with you for now. Anticipate thoracentesis tomorrow morning Please refer to Dr. Arceo's addendum for further recommendations. Admission and Anticipated Discharge Date Admission Date: July 26, 2021 Subjective Attending: Dr. Arceo Patient seen and examined at bedside. Feels better than when admitted. Has been off anticoagulation and antiplatelet therapy for 48 hours. No chest pain or tightness. Continues with shortness of breath, especially with exertion. Review of Systems Review of Systems: All systems reviewed & are unremarkable except as noted in Subjective Physical Exam Physical Exam: GENERAL : No acute distress EYES: No icterus, gaze conjugate NOSE: No evidence of epistaxis MOUTH: No lesions or candidiasis NECK: Supple LUNGS: Decreased breath sounds throughout. Worse left than right base. Crackles bilaterally HEART: Regular, rate controlled ABDOMEN: Soft, NT, ND, BS Present EXTREMITIES: No LE edema, pedal pulses intact NEURO: A&OX3 Results & Data Results & Data ([facility]) Vital Signs (Past 12 Hours) Vital Signs Temp Pulse Resp BP Pulse Ox 08/03/21 19:06 86 18 93 08/03/21 16:00 36.4 C L 85 18 117/70 90 08/03/21 15:09 85 18 90 Laboratory Results 08/03/21 08:59 08/03/21 08:59 PG Care Time/CCT Total # of Minutes Spent Total Time Spent with Patient: Total time spent is greater than 50% in coordination of care (as documented) at patient's floor/unit and/or counseling patient:25 minutes Coding Level of Care Code 74588 Subseq Hosp Care Lvl 2 Diagnoses Bilateral pleural effusion J90 Acute on chronic combined systolic and diastolic CHF (congestive heart failure) I50.43 Acute on chronic renal insufficiency N28.9; N18.9 Antiplatelet or antithrombotic long-term use Z79.02 Atrial fibrillation I48.19 Atrial fibrillation type: persistent (not longstanding) History of pulmonary embolus (PE) Z86.711 Time Spent (min) 25
[2021-08-04 06:07] LABS: Hematocrit (blood only) 28.4 % (42-52); Hemoglobin 9.1 g/dL (14.0-18.0); Mean Corpuscular Hemoglobin 29.9 pg (25-34); Mean Corpuscular Volume 93.4 fL (80-100); Mean Platelet Volume 10.2 fL (7.4-10.4); Platelet Count 395 K/uL (130-400); RDW Coefficient of Variation 20.3 % (11.5-14.5); Red Blood Count 3.04 M/uL (4.7-6.1); White Blood Count 9.75 K/uL (4.8-10.8)
[2021-08-04 06:17] LABS: INR 1.2 (0.9-1.1); Partial Thromboplastin Ratio 1.2; Partial Thromboplastin Time 32.6 Seconds (21.0-31.0); Prothrombin Time 12.4 Seconds (9.0-12.0)
[2021-08-04 06:34] LABS: BUN Creatinine Ratio 22.4 (10-20); Calcium 9.3 mg/dl (8.5-10.1); Est GFR (African American) 26.6 ml/min
[2021-08-04] MEDS: ALBUT/IPRATROP 3MG/0.5MG NEB 3 ML VIAL NEB SCH ×4 (07:02→21:02)
--- NOTE | 2021-08-04 07:59 | XRay Report ---
XR chest 1V portable HISTORY: Shortness of breath. Pleural effusion COMPARISON: Chest 08/02/2021. FINDINGS: No pneumothorax. Small left pleural effusion has slightly improved. Patchy bilateral airspa ce opacities and interstitial thickening has slightly progressed. The heart remains mildly enlarged. Trace right pleural effusion persists. IMPRESSION: 1. Slight progression of bilateral patchy airspace opacities. This likely represents a viral pneumoni a. 2. Small left pleural effusion has slightly improved. A trace right pleural effusion persists. 3. Cardiomegaly and mild pulmonary vascular congestion remain unchanged. ACT 112: Negative or not required by law. Electronically signed by: Adebayo Whitehead M.D. 08/04/2021 7:58 AM
[2021-08-04] MEDS: allopurinoL 100 MG TAB PO SCH (08:41)
[2021-08-04] MEDS: BUMETANIDE 1 MG TAB PO SCH (08:42)
[2021-08-04] MEDS: VALSARTAN/SACUBITRIL 26/24MG TAB PO SCH (08:42)
[2021-08-04] MEDS: guaiFENesin 600 MG TABCR PO SCH ×2 (08:43→20:06)
[2021-08-04] MEDS: METOPROLOL SUCC 50MG EXT REL TAB PO SCH (08:43)
[2021-08-04] MEDS: LORATADINE 10 MG TAB PO SCH (08:43)
[2021-08-04] MEDS: buPROPion SR 100 MG TABCR PO SCH ×2 (08:43→20:06)
[2021-08-04] MEDS: EUCERIN CR 120 GM JAR EXT SCH ×2 (08:43→20:07)
[2021-08-04] MEDS: SERTRALINE HCL 50 MG TABLET PO SCH (08:46)
[2021-08-04] MEDS: PSYLLIUM 58.6% POWDER PACKET PO SCH (08:46)
[2021-08-04] MEDS: APIXABAN 5 MG TABLET PO SCH (08:54)
[2021-08-04] MEDS: POTASSIUM CHLORIDE CRTAB 20 MEQ TABCR PO SCH ×2 (08:54→20:12)
[2021-08-04] MEDS ORDERED: BUMETANIDE 1 MG in SYRINGE 0 ML IV ONE (09:30)
--- NOTE | 2021-08-04 09:57 | Nephrology Consultation ---
Date of Consultation August 04, 2021 Assessment & Plan (1) Acute kidney injury: (2) Chronic renal failure, stage 3b: (3) Fluid overload: (4) Hypoxia: (5) Bilateral pleural effusion: (6) Multifocal pneumonia: 76-year-old gentleman admitted with fall, multifocal pneumonia and bilateral pleural effusion. Also noted to have volume overload with history of chronic congestive heart failure with systolic and diastolic dysfunction. Developed AK with history of stage IIIB CKD secondary to cardiorenal syndrome, b/l cr 1.8-2.0. He continues to have significant bilateral lower extremity edema, pleural effusion and pulmonary congestion although overall he is net negative. -- resume Bumex 2 mg p.o. b.i.d., aim for net negative around 0.5-1 L per day. Monitor intake and output. -- Monitor renal function electrolytes daily while on high-dose diuretics. -- If blood pressure remained persistently low, could Entresto may need to be on hold. -- dose meds for GFR<30, left arm nephrology precaution in case he needs vascular access in future if he needs dialysis. Will follow Thank you for allowing me to participate in your patient's care. It was a pleasure to see Mr. Peterson. History of Present Illness Attending Physician: Galo Villela MD History of Present Illness Mr. Peterson is a 76-year-old gentleman with PMH significant for stage IIIB CKD, CA D s/p PCI 08/2020, paroxysmal Atrial fib on amiodarone, CHF, HTN, DM admitted to the hospital with hypoxia, community acquired pneumonia, volume overload and developed CIRILO. Nephrology consult was requested for management of CIRILO and volume status. EMR records where reviewed in detail during patient's visit. Jesús was most recently admitted to [facility] from 07/11-07/24 for CHF and CIRILO. He was discharged to Rehab. He presented to hospital admitted on 07/26/2021 after a fall at [facility] and found to have multifocal pneumonia. During hospitalization his blood pressure was relatively low and his diuretics was decreased to 2 mg/d. Has stage IIIB/4 CKD baseline creatinine around 1.8 to 2.0, secondary to cardiorenal syndrome. During last admission he had CIRILO And volume overload, creatinine was above 3 which urine eventually improved to baseline prior to discharge. On admission this time his creatinine was close to baseline at the 1.9. Over last few days creatinine has slowly worsened to up to 2.5 this morning. has been having decent urine output and net negative more than 6 L although he is still slightly above his dry weight which lately seems to be around 230-235 lb. He has multiple significant past medical history CAD s/p PCI in August 2020 with multiple stent, was on Entresto before which is currently on hold because of CIRILO. AFib, currently in sinus rhythm, rate controlled on amiodarone on and anticoagulation. Echo on 12/2020 showed EF 30 to 35%, LV and RV mildly dilated, Moderate MR. Has diabetes, hypertension and dyslipidemia however has h/o intole keyon to statin therapy. He was living alone, never , no children, retired, never smoker. He denied any significant symptoms except getting easily tired and short of breath with activity which has been happening since cardiac catheterization and multiple stent more than 6 months ago. Allergies Allergy/AdvReac Type Severity Reaction Status Date / Time spironolactone AdvReac Severe Hyperkalemia, Verified 07/26/21 19:06 bradycardia Fmsqlar-TFG-WsW Reductase AdvReac Intermediate Myalgias Verified 07/26/21 19:06 Inhibitor [Kghfoja-Efm-Yov Reductase Inhibitor] Home Medications Medication Instructions Recorded Confirmed Type vitamins A,C,D-nnzc-mxregd 14,320 1 cap PO BID 05/11/19 07/26/21 History unit-226 mg-200 unit capsule (PreserVision AREDS) amiodarone 200 mg tablet (Pacerone) 200 mg PO HS 10/06/20 07/26/21 History sertraline 50 mg tablet (Zoloft) 50 mg PO QAM 11/14/20 07/26/21 History apixaban 5 mg tablet (Eliquis) 5 mg PO BID #180 tab 03/28/21 07/26/21 Rx clopidogrel 75 mg tablet (Plavix) 75 mg PO QAM 05/02/21 07/26/21 History nitroglycerin 0.4 mg sublingual 0.4 mg SL Q5M PRN 05/02/21 07/26/21 History tablet (Nitrostat) metoprolol succinate 50 mg capsule 50 mg PO BID #60 ea 05/13/21 07/26/21 Rx sprinkle, ext. release 24 hr tramadol 50 mg tablet 50 mg PO Q6H PRN 05/18/21 07/26/21 History albuterol sulfate 90 mcg/actuation 2 puff INHALATION Q6H PRN #6.7 g 06/26/21 07/26/21 Rx aerosol inhaler (Ventolin HFA) colestipol 1 gram tablet (Colestid) 2 g PO QAM tab 07/05/21 07/26/21 History allopurinol 100 mg tablet 100 mg PO DAILY #30 tab 07/24/21 07/26/21 Rx bumetanide 2 mg tablet 2 mg PO BID #120 tab 07/24/21 07/26/21 Rx bupropion HCl 100 mg tablet,12 hr 100 mg PO BID #60 ea 07/24/21 07/26/21 Rx sustained-release potassium chloride 20 mEq 20 meq PO DAILY #30 tab 07/24/21 07/26/21 Rx tablet,extended release(part/cryst) sacubitril 24 mg-valsartan 26 mg 1 tab PO BID #60 tab 07/24/21 07/26/21 Rx tablet (Entresto) kjhoworm-qss-gdori acid 300 1 tab PO DAILY 07/26/21 07/26/21 History mcg-lycopene 600 mcg-lutein 300 mcg tablet (Centrum Silver Men) Patient History Medical History (Updated 08/01/21 @ 17:17 by Rosamaria Arellano PA-C) Arthritis back, knees Atrial fibrillation New onset a. fib 08/2020 in setting of NSTEMI (which resulted in placement of 3 stents) Bilateral edema of lower extremity Bilateral pleural effusion Chronic anticoagulation Chronic systolic heart failure Coronary artery disease stent x1 (2006), stents x3 (08/2020) Diastolic CHF Newly diagnosed during 03/2020 admission, responded well to diuretics > discharged on diuretics and referred to HF clinic per cardiology records Fall from standing Gout of ankle Hx of myocardial infarction 2006, NSTEMI (08/2020 > 3 stents) Ischemic cardiomyopathy Low back pain Lyme disease hx of 2018 Major depressive disorder Obesity Pulmonary embolism 5+ years ago Surgical History History of prostate biopsy S/P coronary artery stent placement stent x1 (2006), stents x3 (08/2020) Family History Family/Other Prostate cancer Father Heart disease Mother Bone cancer Sister Colon cancer Social History Smoking Status: Never smoker Second Hand Exposure: No; Hx Alcohol Use: No Hx Substance Use: No Preferred Language: Icelandic Communication Ability: Effective Embalmer Assistant Required: No Beliefs That Will Affect Care: None marital status: Single Current Living Situation: Snf current occupational status: retired Feels Safe at Home: Yes Diet Comment: Has special diet unsure what kind Assistive Devices: Oxygen - Continuous and Walker Review of Systems Review of Systems: Detailed review of system was done and pertinent positive and negatives mentioned in HPI. Physical Exam Constitutional: WD/WN, vitals as above no acute distress Eyes: + anicteric sclerae ENMT: Ears: no hearing impairment and no external ear abnormality Nose: nasal mucous membranes not dry Neck: normal visual inspection Thyroid: no thyromegaly Respiratory: normal respiratory effort; no respiratory distress and no cough Auscultation: + diminished lung sounds Cardiovascular: Rate/Rhythm: regular rate and regular rhythm Heart Sounds: normal S1 and normal S2 Extremities: + edema (2 to 3 + b/l LE edema) Gastrointestinal (Abdomen): Inspection/Auscultation: abdomen normal to inspection and normal bowel sounds Percussion/Palpation: abdomen soft; abdomen nontender Musculoskeletal: Extremities: extremities normal to inspection Skin: normal turgor; no rashes Neurologic: no focal motor deficits and not confused Psychiatric: Orientation: alert and oriented x 3 Affect: euthymic affect Results & Data ([facility]) Vital Signs (Past 12 Hours) Vital Signs Temp Pulse Pulse Resp BP Pulse Ox 08/04/21 07:44 36.5 C 92 H 22 104/65 92 08/04/21 07:04 89 20 90 PG Care Time/CCT Total # of Minutes Spent Total Time Spent with Patient: Total time spent is greater than 50% in coordination of care (as documented) at patient's floor/unit and/or counseling patient: Coding Level of Care Code 54700 Initial Inpt Care Lvl 3 Diagnoses Acute kidney injury N17.9 Chronic renal failure, stage 3b N18.32 Fluid overload E87.79 Hypervolemia type: other Hypoxia R09.02 Bilateral pleural effusion J90 Multifocal pneumonia J18.9 (1) Fluid overload Hypervolemia type: other Qualified Code(s): E87.79 - Other fluid overload
[2021-08-04] MEDS: COLESTIPOL HCL 1 GM TAB PO SCH (10:37)
[2021-08-04 11:21] LABS: Adenovirus PCR Not Detected (NotDetected); Bordetella parapertussis PCR Not Detected (NotDetected); Bordetella pertussis PCR Not Detected (NotDetected); Chlamydia pneumoniae PCR Not Detected (NotDetected); Coronavirus 229E PCR Not Detected (NotDetected); Coronavirus CoV-2 (COVID19)PCR Not Detected (NotDetected); Coronavirus HKU1 PCR Not Detected (NotDetected); Coronavirus NL63 PCR Not Detected (NotDetected); Coronavirus OC43PCR Not Detected (NotDetected); Human Metapneumovirus PCR Not Detected (NotDetected); Influenza A PCR Not Detected (NotDetected); Influenza B PCR Not Detected (NotDetected); Mycoplasma pneumoniae PCR Not Detected (NotDetected); Parainfluenza Virus 1 PCR Not Detected (NotDetected); Parainfluenza Virus 2 PCR Not Detected (NotDetected); Parainfluenza Virus 3 PCR Not Detected (NotDetected); Parainfluenza Virus 4 PCR Not Detected (NotDetected); Respiratory Syncytial VirusPCR Not Detected (NotDetected); Rhinovirus/Enterovirus PCR Not Detected (NotDetected)
--- NOTE | 2021-08-04 11:54 | Pulmonology Progress Note ---
Date of Service August 04, 2021 Assessment & Plan (1) Bilateral pleural effusion: (2) Acute on chronic combined systolic and diastolic CHF (congestive heart failure): (3) Acute on chronic renal insufficiency: (4) Antiplatelet or antithrombotic long-term use: (5) Atrial fibrillation: Atrial fibrillation type: persistent (not longstanding) Qualified Code(s): I48.19 - Other persistent atrial fibrillation (6) History of pulmonary embolus (PE): Plan: Attending: Dr. Arceo Impression: This is a 76-year-old male with past medical history as indicated above. He was admitted for fall and found to have exacerbation of chronic systolic/diastolic congestive heart failure. proBNP was elevated. Patient received 1 dose of IV Bumex in the emergency department and is currently on his home dose of Bumex 2 mg p.o. twice daily. Since admission, patient has developed some shortness of breath with mild hypoxia. CT of the chest without contrast reveals moderate left pleural effusion with trace right pleural effusion. Patient most likely would benefit from thoracentesis but is currently on clopidogrel and apixaban which has been held since Saturday. Patient denies acute distress or previous incident of pleural effusion or thoracentesis. Recommendations: 1. Bilateral pleural effusions: * Trace effusion on the right with moderate effusion on the left * Thoracentesis on the left performed today with no apparent complication. Fluid appears transudate of and was straw-colored yellow. No evidence of blood in the fluid * Anticoagulation antiplatelet therapy held since Saturday. Can resume per hospitalist team * Await labs and cytology on pleural fluid. * Postprocedural chest x-ray with no evidence of pneumothorax. There is only minimal blunting at the left costophrenic angle. 2. History of pulmonary embolus/DVT: * Patient unable to give history as to when he first had thrombus and if it was recurrent * Continues on anticoagulation with apixaban * Thoracentesis performed. No plans for thoracentesis on the right. May resume anticoagulation and antiplatelet therapy from a pulmonary perspective. Thank you for including us in the care of this patient. We will sign off at this time. Please call with further questions or needs. Admission and Anticipated Discharge Date Admission Date: July 26, 2021 Subjective Attending: Dr. Arceo Patient seen and examined at bedside. Still requiring 4 L/min by nasal cannula for supplemental oxygenation. Continues to have some exertional dyspnea. No fever, chills, sweats, rigors. Occasional sputum which is clear to yellow in color. He feels as though he has sputum stuck in the back of his throat. Review of Systems Review of Systems: All systems reviewed & are unremarkable except as noted in Subjective Physical Exam Physical Exam: GENERAL : No acute distress. Pleasant. Talkative EYES: No icterus, gaze conjugate NOSE: No evidence of epistaxis. Nasal cannula in place at 4 L/min MOUTH: No lesions or candidiasis NECK: Supple LUNGS: no crackles appreciated today. But there is decreased breath sounds on the left side. Most likely associated with pleural effusion. HEART: Regular, rate controlled ABDOMEN: Soft, NT, ND, BS Present EXTREMITIES: Bilateral LE edema, pedal pulses intact NEURO: A&OX3 Results & Data Results & Data ([facility]) Vital Signs (Past 12 Hours) Vital Signs Temp Pulse Pulse Resp BP BP Pulse Ox 08/04/21 11:29 85 80/38 L 98 08/04/21 11:18 89 87/46 L 99 08/04/21 10:50 92 H 93/49 L 95 08/04/21 10:03 92 H 96 08/04/21 07:44 36.5 C 92 H 22 104/65 92 08/04/21 07:04 89 20 90 Laboratory Results 08/04/21 05:27 08/04/21 05:27 INR 1.2 (0.9-1.1) H 08/04/21 05:27 PG Care Time/CCT Total # of Minutes Spent Total Time Spent with Patient: Total time spent is greater than 50% in coordination of care (as documented) at patient's floor/unit and/or counseling patient: 45 minutes Coding Level of Care Code 73703 Subseq Hosp Care Lvl 3 Diagnoses Bilateral pleural effusion J90 Acute on chronic combined systolic and diastolic CHF (congestive heart failure) I50.43 Acute on chronic renal insufficiency N28.9; N18.9 Antiplatelet or antithrombotic long-term use Z79.02 Atrial fibrillation I48.19 Atrial fibrillation type: persistent (not longstanding) History of pulmonary embolus (PE) Z86.711 Time Spent (min) 45
--- NOTE | 2021-08-04 11:56 | Procedure Note ---
Procedure Note Date of Service August 04, 2021 Note INDICATION: Moderate to large left pleural effusion refractory to diuresis PROCEDURE: Left thoracentesis with ultrasound imaging DATE: 08/04/2021 TIME: 10:57 AM PROVIDER: Nikolai Valladares PA-C CONSENT: Was obtained prior to the procedure by Nikolai Valladares PA-C as delegated by Dr. Arceo and placed on the chart PROCEDURE SUMMARY: Bedside ultra sound was performed to identify an appropriate puncture site. Images were saved to the [employer] system. A time out was performed. The patient was prepped and draped in a sterile manner using chlorhexidine scrub after the appropriate level was confirmed by ultrasound. 1% lidocaine was used to numb the region. A finder needle was then used under negative pressure to locate fluid and instill lidocaine into the pleural space. A small incision was made with a #10 scalpel. A needle with overlying catheter was advanced using negative pressure on the syringe until a pleural flash was obtained. The thoracentesis catheter was then threaded without difficulty and without any bleeding. The patient had 1440mL of transudate of appearing straw-colored removed. The incision site was then covered with two Band-Aids with no evidence of bleeding. No immediate complications were noted during the procedure. Dr. Arceo and Rosamaria Arellano PA-C were contacted after the procedure with results. A post-procedure chest x-ray was completed and reviewed at bedside by this provider and no pneumothorax was identified. The patient tolerated the procedure well with no shortness of breath, no increase in heart rate, and only a 10mmHg decrease in systolic blood pressure. No other acute symptoms. Coding
[2021-08-04] MEDS ORDERED: VANCOMYCIN HCL 750 MG in SODIUM CHLORIDE 0.9% 250 ML IV SCH (12:00)
[2021-08-04 12:06] LABS: Glucose Pleural Fluid 138 mg/dl
--- NOTE | 2021-08-04 12:08 | XRay Report ---
XR chest 1V portable CLINICAL HISTORY: S/P Thoracentesis. COMPARISON STUDY: 08/31/2021 at 6:52 AM TECHNIQUE: 1 view of the chest FINDINGS: Single frontal view of the chest demonstrates the cardiomediastinal silhouette to be within normal li mits. Compared to previous examination, the patient is status post left thoracentesis with only minim al blunting of left costophrenic angle now seen. There has been resolution of left basilar atelectasi s. With no evidence for pneumothorax. Interstitial and alveolar opacities are again seen bilaterally. There is no evidence for vascular congestion. There is no acute osseous pathology. IMPRESSION: 1. Status post left thoracentesis with only minimal residual blunting left costophrenic angle. 2. Resolution of left basilar atelectasis with no evidence for pneumothorax. 3. Bilateral interstitial and alveolar opacities are again seen. ACT 112: Negative or not required by law. Electronically signed by: Tremayne Goldsmith M.D. 08/04/2021 12:06 PM
[2021-08-04 12:11] LABS: LDH Pleural Fluid 72 U/L; Total Protein Pleural Fluid 2.5 g/dl
[2021-08-04 12:38] LABS: Appearance Pleural Fluid HAZY; Basophils, Fluid 0 %; Color Pleural Fluid YELLOW; Eosinophils, Fluid 0 %; Lymphocytes, Fluid 20 %; Mono,Macrophage,Mesothelial 50 %; Neutrophils, Fluid 30 %; RBC Pleural Fluid (A) < 3000 /uL; Source Pleural Fluid LEFT LUNG; WBC Pleural Fluid (A) 184 /uL
--- NOTE | 2021-08-04 14:52 | Hospitalist Progress Note ---
Date of Service August 04, 2021 Assessment & Plan (1) Bilateral pleural effusion: Plan: - Noted via CT scan to be moderate to large on L and small on R; he is s/p L th oracentesis with 1440 mL out - Likely d/t HFrEF (last echo LV EF 30-35%) - Unfortunately, pt has not tolerated aggressive diuresis - Currently on PO Bumex 2mg daily, BP better today, will increase back to BID and give a one time dose of IV Bumex 1mg x1 - Dose of Metolazone 2.5mg PO x1 given 08/01 with good response - Pulmonology consulted for thoracentesis -- performed today by TIESHA Cazares - Plavix and Eliquis held in preparation for thoracentesis which is to be done today. Can resume Eliquis tomorrow morning. (2) Acute on chronic combined systolic and diastolic CHF (congestive heart failure): Plan: - Continue Bumex 2mg with increase back to his BID dosing - Continue Toprol XL and Entresto (hold parameters in place) - Daily fluid restriction 1800 mL - Follows in HF clinic; d/w Shaniqua Kennedy PA-C, pt is maximized on medical therapy (3) Hypoxia: Plan: - Multifactoral -- multifocal PNA + CHF w/ bilateral L>R pleural effusions - Plan as outlined #1,2 (4) Acute on chronic renal insufficiency: Plan: - Chronic kidney disease stage 3 with a baseline creat of 1.9 - Mild CIRILO on CKD noted but may need to establish a higher baseline to keep pt out of HF - Will continue to monitor - Nephrology consulted, appreciate recommendations by Dr. Vaughan - Plan to keep pt net negative daily (5) Multifocal pneumonia: Plan: - Given his recent hospitalization 07/11 thru 07/24 for a/c HF exacerbation he will require HAP coverage - IV abx initiated w/ Zosyn, Levaquin, and Vancomycin (all with renal adjustment) - Transitioned to oral Levaquin and Vancomycin (d/t +MRSA screen) x 4 more days - Mucinex 600mg BID - Routine Duonebs QID - Supplemental O2 - Incentive spirometry (6) Antiplatelet or antithrombotic long-term use: Plan: - Held in preparation of procedure today - Resume Plavix on Saturday (7) Atrial fibrillation: Plan: - (Paroxysmal) Currently in NSR - Continue Amiodarone, Toprol XL - Resume Eliquis 12 AM as discussed (8) Thoracic spine fracture: Plan: - Incidentally found on CT chest w/o contrast - Does not seem to be having pain associated with the fracture (only admits to low back pain which is chronic for him) - Dr. Zhou consulted, requested MRI, results reviewed no plans for surgical intervention (9) Ischemic cardiomyopathy: Plan: - See above (10) Major depressive disorder: Plan: - Continue Sertraline (11) Bilateral edema of lower extremity: Plan: - Chronic -- combination of chronic venous stasis and biventricular CHF - Supposed to be wearing compression stockings Plan: Resume Eliquis 08/05 and Plavix on 08/06 Follow labs Continue PT/OT as tolerated Discussed option for hospice of which pt was agreeable. Will d/w CM, could consider back to [facility] w/ hospice care. Prognosis is poor Pt is DNR/DNI Called and updated pt's nephew, Alen. Admission and Anticipated Discharge Date Admission Date: July 26, 2021 Subjective Mr. Peterson was seen on rounds today. He is resting comfortably in bed and offers no new complaints. Pt remains hospitalized for hypoxia which was initially felt to be associated with acute exacerbation of CHF. However, after repeat imaging with CT chest, he was noted to have multifocal PNA, bilateral (L>R) pleural effusions, and incidental finding of a T4 fx. The size of the L pleural effusion is moderate to large and likely causing a degree of compressive atelectasis. He is for thoracentesis today. He currently denies shortness of breath or chest pain at rest, but continues to get winded and tired easily with exertion. He denies n/v/d, f/c, headache, or gu symptoms. He has chronic LE edema but feels that they have improved recently. Pt came from [facility], has voiced some hesitation in returning there, but is agreeable to returning with additional services. He is agreeable to hospice. Review of Systems Review of Systems: CONSTITUTIONAL: +generalized weakness, fatigue. Denies weight loss/gain, fever and chills, malaise. HEENT: Denies changes in vision and hearing. RESPIRATORY: +LOREDO and productive cough. Denies SOB at rest, wheezing. CV: +LE edema. Denies palpitations, CP, orthopnea, PND. GI: Denies abdominal pain, nausea, vomiting and diarrhea. : Denies dysuria and urinary frequency, urgency, hesitancy. MUSCULOSKELETAL: +low back pain (chronic). Denies myalgia and joint pain. SKIN: Denies rash and pruritus. NEUROLOGICAL: Denies headache, syncope, focal weakness, numbness, tingling. PSYCHIATRIC: Denies recent changes in mood. Denies anxiety and depression. Physical Exam Physical Exam: GENERAL: 76 yo elderly WM. WD/WN pleasant. NAD. LUNGS: Diminished in LLL. Bibasilar crackles. No rhonchi or wheezes noted. CARDIOVASCULAR: Regular rate and rhythm. No M/G/R. No JVD. ABDOMEN: Soft, non-tender. No palpable masses. Bowel sounds normoactive x 4 quad . EXTREMITIES: +2 to +3 pitting edema. Open skin tear to anterior LLE. Peripheral pulses +2/4. PSYCHIATRIC: Cooperative. Appropriate mood and affect. SKIN: Warm, dry, intact. No rashes or lesions. Chronic venous stasis changes bilateral LE. Results & Data Results & Data ([facility]) Vital Signs (Past 12 Hours) Vital Signs Temp Pulse Pulse Resp BP BP Pulse Ox 08/04/21 14:05 36.6 C 86 19 85/43 L 88 L 08/04/21 12:44 86 85/49 L 95 08/04/21 12:06 86 84/62 L 99 08/04/21 11:50 86 20 98 08/04/21 11:29 85 80/38 L 98 08/04/21 11:18 89 87/46 L 99 08/04/21 10:50 92 H 93/49 L 95 08/04/21 10:03 92 H 96 08/04/21 07:44 36.5 C 92 H 22 104/65 92 08/04/21 07:04 89 20 90 Laboratory Results 08/04/21 05:27 08/04/21 05:27 PG Care Time/CCT Total # of Minutes Spent Total Time Spent with Patient: Total time spent is greater than 50% in coordination of care (as documented) at patient's floor/unit and/or counseling patient: Coding Level of Care Code 94002 Subseq Hosp Care Lvl 3 Diagnoses Bilateral pleural effusion J90 Acute on chronic combined systolic and diastolic CHF (congestive heart failure) I50.43 Acute on chronic renal insufficiency N28.9; N18.9 Antiplatelet or antithrombotic long-term use Z79.02 Atrial fibrillation I48.19 Atrial fibrillation type: persistent (not longstanding) Hypoxia R09.02 Multifocal pneumonia J18.9 Thoracic spine fracture S22.009A Ischemic cardiomyopathy I25.5 Major depressive disorder F32.9 Active/Remission status: currently active Major depression episode severity: unspecified Major depression recurrence: unspecified whether recurrent Bilateral edema of lower extremity R60.0 (1) Major depressive disorder Active/Remission status: currently active Major depression episode severity: unspecified Major depression recurrence: unspecified whether recurrent Qualified Code(s): F32.9 - Major depressive disorder, single episode, unspecified (2) Atrial fibrillation Atrial fibrillation type: persistent (not longstanding) Qualified Code(s): I48.19 - Other persistent atrial fibrillation
--- NOTE | 2021-08-04 15:17 | Pharmacy Report ---
Pharmacy [facility] Short Note - Date of Service August 04, 2021 - Assessment & Plan Assessment 76 year old M receiving IV Vancomycin, Zosyn, and Levaquin for treatment of multifocal pneumonia, recent hospitalization 07/11 thru 07/24 requires HAP coverage. Pertinent microbiologic data includes: Positive MRSA Nasal Swab Plan Vancomycin * AUC/CODY is the preferred PK/PD target for vancomycin * AUC guided dosing is effective and associated with decreased risk of nep hrotoxicity compared to traditional trough targets * Scr trending up more today, therefore put doses on hold for vancomycin and ordered a random level * Random level ~20 mcg/ml (goal 15-20 mcg/ml) * Plan to give 750 mg x 1 vancomycin for this evening to maintain peak of ~30 mcg/ml * Plan to reorder another random level tomorrow to assist with further dosing Pharmacy will continue to follow and will adjust dose/frequency as necessary. Thank you.
[2021-08-04] MEDS ORDERED: VANCOMYCIN HCL 750 MG in SODIUM CHLORIDE 0.9% 250 ML IV ONE (18:00)
[2021-08-04] MEDS: AMIODARONE 200 MG TAB PO SCH (20:05)
--- NOTE | 2021-08-04 20:14 | Communication Note ---
Date of Service: August 04, 2021 Nursing messaged night team regarding low BP reading - patient's pressure was 92/54. Metoprolol and Bumex placed on hold due to concerns about worsening anti- hypertensive effect.
[2021-08-05 06:48] LABS: Basophils # (auto) 0.02 K/uL (0-0.2); Basophils % (auto) 0.2 %; Eosinophils # (auto) 0.41 K/uL (0-0.5); Eosinophils % (auto) 4.1 %; Hematocrit (blood only) 28.3 % (42-52); Hemoglobin 8.9 g/dL (14.0-18.0); Immature Granulocytes # (auto) 0.02 K/uL (0.00-0.02); Immature Granulocytes % (auto) 0.2 %; Lymphocytes # (auto) 0.77 K/uL (1.2-3.4); Lymphocytes % (auto) 7.7 %; Mean Corpuscular Hemoglobin 29.5 pg (25-34); Mean Corpuscular Hgb Conc 31.4 g/dL (32-36); Mean Corpuscular Volume 93.7 fL (80-100); Mean Platelet Volume 10.3 fL (7.4-10.4); Monocytes # (auto) 0.23 K/uL (0.11-0.59); Monocytes % (auto) 2.3 %; Neutrophils # (auto) 8.51 K/uL (1.4-6.5); Neutrophils % (auto) 85.5 %; Platelet Count 364 K/uL (130-400); RDW Coefficient of Variation 20.1 % (11.5-14.5); RDW Standard Deviation 68.2 fL (36.4-46.3); Red Blood Count 3.02 M/uL (4.7-6.1); White Blood Count 9.96 K/uL (4.8-10.8)
[2021-08-05 07:16] LABS: Anisocytosis Present; Polychromasia 1+
[2021-08-05 07:19] LABS: BUN Creatinine Ratio 21.7 (10-20); Calcium 9.4 mg/dl (8.5-10.1); Est GFR (African American) 23.2 ml/min; Potassium 4.2 mmol/L (3.5-5.1)
[2021-08-05] MEDS: ALBUT/IPRATROP 3MG/0.5MG NEB 3 ML VIAL NEB SCH ×3 (07:31→14:56)
[2021-08-05] MEDS: LORATADINE 10 MG TAB PO SCH (08:00)
[2021-08-05] MEDS: EUCERIN CR 120 GM JAR EXT SCH ×2 (08:00→20:02)
[2021-08-05] MEDS: PSYLLIUM 58.6% POWDER PACKET PO SCH (08:01)
[2021-08-05] MEDS: guaiFENesin 600 MG TABCR PO SCH (08:01)
[2021-08-05] MEDS: SERTRALINE HCL 50 MG TABLET PO SCH (08:01)
[2021-08-05] MEDS: buPROPion SR 100 MG TABCR PO SCH ×2 (08:01→20:01)
[2021-08-05] MEDS: allopurinoL 100 MG TAB PO SCH (08:01)
[2021-08-05] MEDS: CLOPIDOGREL BISULFATE 75 MG TAB PO SCH (08:01)
[2021-08-05] MEDS: APIXABAN 5 MG TABLET PO SCH ×2 (08:01→20:02)
[2021-08-05] MEDS: POTASSIUM CHLORIDE CRTAB 20 MEQ TABCR PO SCH ×2 (09:29→20:05)
[2021-08-05] MEDS: COLESTIPOL HCL 1 GM TAB PO SCH (09:29)
[2021-08-05] MEDS ORDERED: levoFLOXacin 750 MG TAB PO SCH (11:00)
--- NOTE | 2021-08-05 14:28 | Nephrology Progress Note ---
Date of Service August 05, 2021 Assessment & Plan (1) Acute kidney injury: Plan: Clinically consistent with ATN and CRS. Dialysis will not be considered part of the care plan. Confirmed plan to transition to [facility]/Hospice. I have nothing more to add and nephrology will sign off at this time. Please call with questions or concerns. (2) Chronic renal failure, stage 3b: Plan: Goals of care reviewed. (3) Fluid overload: Plan: Diuretics to encourage negative fluid balance. (4) Hypoxia: Plan: Mutlifocal pneumonia and CHF. Prognosis is poor. (5) Bilateral pleural effusion: Plan: s/p thoracentesis. (6) Multifocal pneumonia: Admission and Anticipated Discharge Date Admission Date: July 26, 2021 Subjective No acute events overnight. Remains very weak. Moisés confirmed for me this morning his plans to transition to comfort measures and hospice. Review of Systems Review of Systems: All systems reviewed & are unremarkable except as noted in HPI & below Physical Exam Constitutional: + ill appearing and + frail appearing; no acute distress Eyes: + anicteric sclerae; no corneal abnormality ENMT: Mouth: no oral mucosal abnormality and oral mucous membranes not dry Neck: normal visual inspection and trachea midline Respiratory: normal respiratory effort Auscultation: + diminished lung sounds and + rales Cardiovascular: Rate/Rhythm: regular rate Heart Sounds: normal S1, normal S2 and + murmur Vessels: + JVD Extremities: + edema Musculoskeletal: Extremities: no cyanosis and no clubbing Skin: + turgor decreased and + ecchymosis Neurologic: Motor/Sensory: no tremor and no asterixis Psychiatric: Orientation: alert and oriented x 3 Results & Data ([facility]) Vital Signs (Past 12 Hours) Vital Signs Temp Pulse Resp BP Pulse Ox 08/05/21 11:19 70 20 93 08/05/21 07:31 77 18 93 08/05/21 07:23 36.3 C L 71 18 97/57 L 91 Laboratory Results Laboratory Results - last 24 hr 08/04/21 08/05/21 08/05/21 14:10 06:26 06:26 WBC 9.96 RBC 3.02 L Hgb 8.9 L Hct 28.3 L MCV 93.7 MCH 29.5 MCHC 31.4 L RDW Std Deviation 68.2 H RDW Coeff of Jeff 20.1 H Plt Count 364 MPV 10.3 Immature Gran % (Auto) 0.2 Neut % (Auto) 85.5 Lymph % (Auto) 7.7 Weld % (Auto) 2.3 Eos % (Auto) 4.1 Baso % (Auto) 0.2 Neut # (Auto) 8.51 H Lymph # (Auto) 0.77 L Weld # (Auto) 0.23 Eos # (Auto) 0.41 Baso # (Auto) 0.02 Immature Gran # (Auto) 0.02 Polychromasia 1+ Anisocytosis Present Sodium 135 L Potassium 4.2 Chloride 103 Carbon Dioxide 24 Anion Gap 8.0 BUN 63 H Creatinine 2.89 H D Est Cr Clr Drug Dosing 26.0 Est GFR ( Amer) 23.2 Est GFR (Non-Af Amer) 20.0 BUN/Creatinine Ratio 21.7 H Glucose 124 H Calcium 9.4 Magnesium 2.0 Random Vancomycin 20.0 PG Care Time/CCT Total # of Minutes Spent Total Time Spent with Patient: Total time spent is greater than 50% in coordination of care (as documented) at patient's floor/unit and/or counseling patient: Coding Level of Care Code 63637 Subseq Hosp Care Lvl 3 Diagnoses Acute kidney injury N17.9 Chronic renal failure, stage 3b N18.32 Fluid overload E87.79 Hypervolemia type: other Hypoxia R09.02 Bilateral pleural effusion J90 Multifocal pneumonia J18.9 (1) Fluid overload Hypervolemia type: other Qualified Code(s): E87.79 - Other fluid overload
--- NOTE | 2021-08-05 15:19 | Hospitalist Progress Note ---
Date of Service August 05, 2021 Assessment & Plan (1) Bilateral pleural effusion: Plan: - Noted via CT scan to be moderate to large on L and small on R; he is s/p L th oracentesis with 1440 mL out - Likely d/t HFrEF (last echo LV EF 30-35%) - Unfortunately, pt has not tolerated aggressive diuresis - Currently on PO Bumex 2mg daily, BP better today, will increase back to BID and give a one time dose of IV Bumex 1mg x1 - Dose of Metolazone 2.5mg PO x1 given 08/01 with good response - Pulmonology consulted for thoracentesis -- performed today by TIESHA Cazares - Plavix and Eliquis held in preparation for thoracentesis which is to be done today. Can resume Eliquis tomorrow morning. (2) Acute on chronic combined systolic and diastolic CHF (congestive heart failure): Plan: - Continue Bumex 2mg with increase back to his BID dosing - Continue Toprol XL and Entresto (hold parameters in place) - Daily fluid restriction 1800 mL - Follows in HF clinic; d/w Shaniqua Kennedy PA-C, pt is maximized on medical therapy (3) Hypoxia: Plan: - Multifactoral -- multifocal PNA + CHF w/ bilateral L>R pleural effusions - Plan as outlined #1,2 (4) Acute on chronic renal insufficiency: Plan: - Chronic kidney disease stage 3 with a baseline creat of 1.9 - CIRILO on CKD secondary to ATN and CRS - Continue diuresis for now with goal of daily net negative fluid balance - Nephrology was consulted, appreciated their assistance but there is no plan to pursue HD and they have signed off (5) Multifocal pneumonia: Plan: - Given his recent hospitalization 07/11 thru 07/24 for a/c HF exacerbation he will require HAP coverage - IV abx initiated w/ Zosyn, Levaquin, and Vancomycin (all with renal adjustment) - Transitioned to oral Levaquin and Vancomycin (d/t +MRSA screen); however, pt would like to discontinue abx - Mucinex 600mg BID will be discontinued - Routine Duonebs QID will be changed to PRN - Supplemental O2 as needed for comfort and hypoxia - Incentive spirometry (6) Antiplatelet or antithrombotic long-term use: Plan: - Eliquis and Plavix held for thoracentesis 08/04 - Eliquis resumed today 08/05 - Resume Plavix on Saturday (08/06) (7) Atrial fibrillation: Plan: - (Paroxysmal) - Continue Amiodarone, Toprol XL, Eliquis (8) Thoracic spine fracture: Plan: - Incidentally found on CT chest w/o contrast - Does not seem to be having pain associated with the fracture (only admits to low back pain which is chronic for him) - Dr. Zhou consulted, requested MRI, results reviewed no plans for surgical intervention (9) Ischemic cardiomyopathy: Plan: - See above (10) Major depressive disorder: Plan: - Continue Sertraline (11) Bilateral edema of lower extremity: Plan: - Chronic -- combination of chronic venous stasis and biventricular CHF - Supposed to be wearing compression stockings Plan: Stop abx, change duonebs to prn, continue supplemental O2 for now PT/OT consulted, but do not believe pt is rehab-able His prognosis is poor Pt is DNR/DNI Will discuss transitioning to comfort measures in the coming days if continues to decline Called and updated pt's nephew, Alen on 08/04. Will notify of any changes. Admission and Anticipated Discharge Date Admission Date: July 26, 2021 Subjective Mr. Peterson was seen on rounds today. He is resting comfortably in bed and offers no new complaints. Pt remains hospitalized for hypoxia which was initially felt to be associated with acute exacerbation of CHF. However, after repeat imaging with CT chest, he was noted to have multifocal PNA, bilateral (L>R) pleural effusions, and incidental finding of a T4 fx. He underwent thoracentesis 08/04 with 1440 mL of fluid drained. Following the procedure, no immediate complications but his BP was marginal at 88-90s systolic. He currently denies shortness of breath or chest pain at rest, but continues to get winded and tired easily with any exertion. He denies n/v/d, f/c, headache, or gu symptoms. Unfortunately, Mr. Peterson has steadily declined throughout his hospitalization despite aggressive treatment including attempts at diuresis, initiation of abx therapy for his pneumonia, as well as thoracentesis. Pt continues to feel overall fatigued, has continued to require 2-3L of supplemental oxygen, and has continued to have issues maintaining an adequate blood pressure. I talked at length with patient about considering hospice given his multiple comorbidities. He would like to discontinue antibiotics, and continue all other interventions currently. But will consider making full transition to comfort care if no improvement over the coming days. Review of Systems Review of Systems: CONSTITUTIONAL: +generalized weakness, fatigue. Denies weight loss/gain, fever and chills, malaise. HEENT: Denies changes in vision and hearing. RESPIRATORY: +LOREDO and productive cough. Denies SOB at rest, wheezing. CV: +LE edema. Denies palpitations, CP, orthopnea, PND. GI: Denies abdominal pain, nausea, vomiting and diarrhea. : Denies dysuria and urinary frequency, urgency, hesitancy. MUSCULOSKELETAL: +low back pain (chronic). Denies myalgia and joint pain. SKIN: Denies rash and pruritus. NEUROLOGICAL: Denies headache, syncope, focal weakness, numbness, tingling. PSYCHIATRIC: Denies recent changes in mood. Denies anxiety and depression. Physical Exam Physical Exam: GENERAL: 76 yo elderly WM. WD/WN pleasant. Appears ill/unwell but nontoxic. NAD. LUNGS: Bibasilar crackles. No rhonchi or wheezes noted. CARDIOVASCULAR: Regular rate and rhythm. 1-2/6 SARA. ABDOMEN: Soft, non-tender. No palpable masses. Bowel sounds normoactive x 4 quad. EXTREMITIES: +2 pitting edema. Open skin tear to anterior LLE. Peripheral pulses +2/4. PSYCHIATRIC: Cooperative. Appropriate mood and affect. SKIN: Warm, dry, intact. No rashes or lesions. Chronic venous stasis changes bilateral LE. Results & Data Results & Data ([facility]) Vital Signs (Past 12 Hours) Vital Signs Temp Pulse Resp BP Pulse Ox 08/05/21 14:56 73 18 94 08/05/21 11:19 70 20 93 08/05/21 07:31 77 18 93 08/05/21 07:23 36.3 C L 71 18 97/57 L 91 Laboratory Results 08/05/21 06:26 08/05/21 06:26 PG Care Time/CCT Total # of Minutes Spent Total Time Spent with Patient: Total time spent is greater than 50% in coordination of care (as documented) at patient's floor/unit and/or counseling patient: Coding Level of Care Code 65672 Subseq Hosp Care Lvl 2 Diagnoses Bilateral pleural effusion J90 Acute on chronic combined systolic and diastolic CHF (congestive heart failure) I50.43 Hypoxia R09.02 Acute on chronic renal insufficiency N28.9; N18.9 Multifocal pneumonia J18.9 Antiplatelet or antithrombotic long-term use Z79.02 Atrial fibrillation I48.19 Atrial fibrillation type: persistent (not longstanding) Thoracic spine fracture S22.009A Ischemic cardiomyopathy I25.5 Major depressive disorder F32.9 Major depression recurrence: unspecified whether recurrent Active/Remission status: currently active Major depression episode severity: unspecified Bilateral edema of lower extremity R60.0 (1) Atrial fibrillation Atrial fibrillation type: persistent (not longstanding) Qualified Code(s): I48.19 - Other persistent atrial fibrillation (2) Major depressive disorder Major depression recurrence: unspecified whether recurrent Active/Remission status: currently active Major depression episode severity: unspecified Qualified Code(s): F32.9 - Major depressive disorder, single episode, unspecified
--- NOTE | 2021-08-05 16:39 | Pharmacy Report ---
Pharmacy [facility] Short Note - Date of Service August 05, 2021 - Assessment & Plan Assessment 76 year old M receiving IV Vancomycin, Zosyn, and Levaquin for treatment of multifocal pneumonia, recent hospitalization 07/11 thru 07/24 requires HAP coverage. Pertinent microbiologic data includes: Positive MRSA Nasal Swab Plan Vancomycin * Random vancomycin level is 23 mcg/ml this afternoon. Goal 15-20 mcg/ml * Scr continues to trend upward more today from 2.5 to 2.89 * May opt to hold dose of vancomycin dose today due to rapid rising Scr. Estimated half life t1/2 ~26 hrs * Plan to order a random level in the morning to assist with further dosing. Level predicted to still be >15 mcg/ml tomorrow AM Pharmacy will continue to follow and will adjust dose/frequency as necessary. Thank you.
[2021-08-05] MEDS: AMIODARONE 200 MG TAB PO SCH (20:05)
[2021-08-06] MEDS: APIXABAN 5 MG TABLET PO SCH ×2 (07:29→20:12)
[2021-08-06] MEDS: CLOPIDOGREL BISULFATE 75 MG TAB PO SCH (07:29)
[2021-08-06] MEDS: COLESTIPOL HCL 1 GM TAB PO SCH (07:30)
[2021-08-06] MEDS: EUCERIN CR 120 GM JAR EXT SCH ×2 (07:31→20:12)
[2021-08-06] MEDS: PSYLLIUM 58.6% POWDER PACKET PO SCH (07:40)
[2021-08-06] MEDS: LORATADINE 10 MG TAB PO SCH (07:41)
[2021-08-06] MEDS: allopurinoL 100 MG TAB PO SCH (07:42)
[2021-08-06] MEDS: SERTRALINE HCL 50 MG TABLET PO SCH (07:42)
[2021-08-06] MEDS: buPROPion SR 100 MG TABCR PO SCH ×2 (07:42→20:12)
[2021-08-06] MEDS: POTASSIUM CHLORIDE CRTAB 20 MEQ TABCR PO SCH (07:45)
[2021-08-06] MEDS ORDERED: VANCOMYCIN TROUGH ONE (11:30)
[2021-08-06] MEDS: MoRPHine SULFATE 2 MG/ML CARP IV PRN ×2 (14:15→20:34)
--- NOTE | 2021-08-06 14:28 | Hospitalist Progress Note ---
Date of Service August 06, 2021 Assessment & Plan (1) Bilateral pleural effusion: Plan: - Noted via CT scan to be moderate to large on L and small on R; he is s/p L thoracentesis with 1440 mL out - Likely d/t HFrEF (last echo LV EF 30-35%) - Unfortunately, pt has not tolerated aggressive diuresis - Was on PO Bumex 2mg BID at home which has required adjustments throughout his stay d/t BP issues - Given dose of Metolazone 2.5mg PO x1 on 08/01 with good response - Pulmonology consulted for thoracentesis -- performed 08/04 by Nikolai Valladares PA-C (2) Acute on chronic combined systolic and diastolic CHF (congestive heart failure): Plan: - His regimen of Toprol XL, Entresto, and Bumex all on hold d/t hypotension - Daily fluid restriction 1800 mL - Initiate Morphine to help with comfort/air hunger (3) Hypoxia: Plan: - Multifactoral -- multifocal PNA + CHF w/ bilateral L>R pleural effusions (4) Acute on chronic renal insufficiency: Plan: - Chronic kidney disease stage 3 with a baseline creat of 1.9 - CIRILO on CKD secondary to ATN and CRS - Diuretics on hold d/t BP - Nephrology was consulted, appreciated their assistance but there is no plan to pursue HD and they have signed off - Becoming oliguric (5) Multifocal pneumonia: Plan: - D/T hospitalization 07/11 thru 07/24 he was placed on HAP coverage w/ Zosyn, Levaquin, and Vanco (uncertain if truly bacterial v viral but BioFire was neg ative) - Transitioned to oral Levaquin and Vancomycin (d/t +MRSA screen) on 08/04; however, abx stopped at pt request on 08/05 (6) Antiplatelet or antithrombotic long-term use: Plan: - On both Plavix and Eliquis (7) Atrial fibrillation: Plan: - (Paroxysmal) - Continue Amiodarone, Eliquis (8) Thoracic spine fracture: Plan: - Incidentally found on CT chest w/o contrast - Does not seem to be having pain associated with the fracture (only admits to low back pain which is chronic for him) - Dr. Zhou consulted, requested MRI, results reviewed no plans for surgical intervention (9) Ischemic cardiomyopathy: Plan: - See above (10) Major depressive disorder: Plan: - Continue Sertraline and Bupropion (11) Bilateral edema of lower extremity: Plan: - Chronic -- combination of chronic venous stasis and biventricular CHF - Supposed to be wearing compression stockings Plan: Will transition to comfort measures, no further labs Continue supplemental O2 Add Morphine for comfort/air hunger Consult Palliative medicine team, appreciate assistance in this case Will call and update pt's nephew, Alen. Admission and Anticipated Discharge Date Admission Date: July 26, 2021 Subjective Mr. Peterson was seen on rounds today. Pt remains hospitalized for hypoxia which was initially felt to be associated with acute exacerbation of CHF. However, after repeat imaging with CT chest, he was noted to have multifocal PNA, bilateral (L>R) pleural effusions, and incidental finding of a T4 fx. He underwent thoracentesis 08/04 with 1440 mL of fluid drained. Unfortunately, Mr. Peterson has steadily declined throughout his hospitalization despite aggressive treatment including attempts at diuresis, initiation of abx therapy for his pneumonia, as well as thoracentesis. Pt continues to feel overall very fatigued, ongoing supplemental oxygen requirement, and issues maintaining an adequate blood pressure. Overnight from 08/04-08/05, pt was hypotensive, overnight consumer loan underwriter resident held all of his BP meds and diuretics. I talked at length with patient about considering hospice given his multiple comorbidities and overall poor prognosis. He decided on 08/05, he wanted to stop antibiotics for his PNA which was done. This morning, pt decided that he would like to discontinue all aggressive treatment measures and wants to focus on comfort. Asked that his nephew, Alen, be updated on change. Review of Systems Review of Systems: CONSTITUTIONAL: +generalized weakness, fatigue. Denies weight loss/gain, fever and chills, malaise. HEENT: Denies changes in vision and hearing. RESPIRATORY: +LOREDO and productive cough. Denies SOB at rest, wheezing. CV: +LE edema. Denies palpitations, CP, orthopnea, PND. GI: Denies abdominal pain, nausea, vomiting and diarrhea. : Denies dysuria and urinary frequency, urgency, hesitancy. MUSCULOSKELETAL: +low back pain (chronic). Denies myalgia and joint pain. SKIN: Denies rash and pruritus. NEUROLOGICAL: Denies headache, syncope, focal weakness, numbness, tingling. PSYCHIATRIC: Denies recent changes in mood. Denies anxiety and depression. Physical Exam Physical Exam: GENERAL: 76 yo elderly WM. Appears ill/unwell/dusky, nontoxic. NAD. LUNGS: Bibasilar crackles. No rhonchi or wheezes noted. CARDIOVASCULAR: Regular rate and rhythm. 1-2/6 SARA. ABDOMEN: Soft, non-tender. No palpable masses. Bowel sounds normoactive x 4 quad. EXTREMITIES: +2 pitting edema. Open skin tear to anterior LLE. Peripheral pulses +2/4. PSYCHIATRIC: Cooperative. Appropriate mood and affect. SKIN: Warm, dry, intact. No rashes or lesions. Chronic venous stasis changes bilateral LE. Results & Data Results & [facility] ([facility]) Vital Signs (Past 12 Hours) Vital Signs Temp Pulse Resp BP Pulse Ox 08/06/21 14:13 36.4 C L 76 16 92/54 L 90 08/06/21 07:02 36.6 C 80 20 123/84 93 PG Care Time/CCT Total # of Minutes Spent Total Time Spent with Patient: Total time spent is greater than 50% in coordination of care (as documented) at patient's floor/unit and/or counseling patient: Coding Level of Care Code 54374 Subseq Hosp Care Lvl 2 Diagnoses Bilateral pleural effusion J90 Acute on chronic combined systolic and diastolic CHF (congestive heart failure) I50.43 Hypoxia R09.02 Acute on chronic renal insufficiency N28.9; N18.9 Multifocal pneumonia J18.9 Antiplatelet or antithrombotic long-term use Z79.02 Atrial fibrillation I48.19 Atrial fibrillation type: persistent (not longstanding) Thoracic spine fracture S22.009A Ischemic cardiomyopathy I25.5 Major depressive disorder F32.9 Major depression recurrence: unspecified whether recurrent Active/Remission status: currently active Major depression episode severity: unspecified Bilateral edema of lower extremity R60.0 (1) Atrial fibrillation Atrial fibrillation type: persistent (not longstanding) Qualified Code(s): I48.19 - Other persistent atrial fibrillation (2) Major depressive disorder Major depression recurrence: unspecified whether recurrent Active/Remission status: currently active Major depression episode severity: unspecified Qualified Code(s): F32.9 - Major depressive disorder, single episode, unspecified
[2021-08-06] MEDS: AMIODARONE 200 MG TAB PO SCH (20:12)
[2021-08-07] MEDS: APIXABAN 5 MG TABLET PO SCH ×2 (09:46→20:28)
[2021-08-07] MEDS: buPROPion SR 100 MG TABCR PO SCH ×2 (09:46→20:28)
[2021-08-07] MEDS: CLOPIDOGREL BISULFATE 75 MG TAB PO SCH (09:47)
[2021-08-07] MEDS: EUCERIN CR 120 GM JAR EXT SCH ×2 (09:51→20:28)
[2021-08-07] MEDS: SERTRALINE HCL 50 MG TABLET PO SCH (14:55)
--- NOTE | 2021-08-07 19:31 | Hospitalist Progress Note ---
Date of Service August 07, 2021 Assessment & Plan (1) Bilateral pleural effusion: Plan: - Noted via CT scan to be moderate to large on L and small on R; he is s/p L thoracentesis with 1440 mL out - Likely d/t HFrEF (last echo LV EF 30-35%) - Unfortunately, pt has not tolerated aggressive diuresis - at this time minimal improvement in respiratory status even with thoracentesis and attempts at diuresis - still requiring supplemental O2 and intermittent low BPs and rising renal function - Was on PO Bumex 2mg BID at home which has required adjustments throughout his stay d/t BP issues - Given dose of Metolazone 2.5mg PO x1 on 08/01 with good response - Pulmonology consulted for thoracentesis -- performed 08/04 by Nikolai Valladares PA-C (2) Acute on chronic combined systolic and diastolic CHF (congestive heart failure): Plan: - His regimen of Toprol XL, Entresto, and Bumex all on hold d/t hypotension - Daily fluid restriction 1800 mL - Initiate Morphine to help with comfort/air hunger (3) Hypoxia: Plan: - Multifactoral -- multifocal PNA + CHF w/ bilateral L>R pleural effusions (4) Acute on chronic renal insufficiency: Plan: - Chronic kidney disease stage 3 with a baseline creat of 1.9 - CIRILO on CKD secondary to ATN and CRS - Diuretics on hold d/t BP - Nephrology was consulted, appreciated their assistance but there is no plan to pursue HD and they have signed off - Becoming oliguric (5) Multifocal pneumonia: Plan: - D/T hospitalization 07/11 thru 07/24 he was placed on HAP coverage w/ Zosyn, Levaquin, and Vanco (uncertain if truly bacterial v viral but BioFire was negative) - Transitioned to oral Levaquin and Vancomycin (d/t +MRSA screen) on 08/04; however, abx stopped at pt request on 08/05 (6) Antiplatelet or antithrombotic long-term use: Plan: - On both Plavix and Eliquis (7) Atrial fibrillation: Plan: - (Paroxysmal) - Continue Amiodarone, Eliquis (8) Thoracic spine fracture: Plan: - Incidentally found on CT chest w/o contrast - Does not seem to be having pain associated with the fracture (only admits to low back pain which is chronic for him) - Dr. Zhou consulted, requested MRI, results reviewed no plans for surgical intervention (9) Ischemic cardiomyopathy: Plan: - See above (10) Major depressive disorder: Plan: - Continue Sertraline and Bupropion (11) Bilateral edema of lower extremity: Plan: - Chronic -- combination of chronic venous stasis and biventricular CHF - Supposed to be wearing compression stockings Plan: Discussion with previous PA and I discussed with patient again as he would like comfort measures and no further interventions. He requested stopping Abx and discussed again with him and he would not want to restart these. He has expressed understanding of his life expectancy to be limited as he is aware of his decline over the past months. Will consult palliative care to assist in any additional arrangements - Morphine for comfort; will stop labs; will discuss if he would like ongoing medications; updated case management Admission and Anticipated Discharge Date Admission Date: July 26, 2021 Subjective Pt reports ongoing fatigue and inability to get around. He looks more fatigued today compared to seeing him about a week ago. His breathing is a bit more labored compared to my last visit with him and still requiring supplemental O2. He discussed with me that his spoke with Rosamaria yesterday and feels that [facility]/hospice is the best approach. He did discuss this to a degree when I had him a week ago as he is aware that his had declined and having more difficulty bouncing back of the past few weeks. At that time he felt is lfie was limited. As he continues to decline he feels that aggressive measures will only prolong the inevitable. He would like to focus on comfort and managing his symptoms. He stated he wants to avoid "the anticipated suffering" that comes with dying by managing symptoms but reports that he is accepting of . We did discuss our morphine can be used to assist with air hunger and pain control and he verbalized understanding. Review of Systems Review of Systems: All systems reviewed & are unremarkable except as noted in Subjective Physical Exam Physical Exam: PHYSICAL EXAM General Appearance: frail appearing but nontoxic; mild respiratory distress; A&O x 3 HEENT: Head is normocephalic; Mucous membranes moist Neck: Supple; Trachea midline; Neg JVD Heart: RRR with murmur Lungs: Fine crackles bilateral; Respirations mildly labored Abdomen: Soft, non-tender, non-distended; Positive BS x 4 quadrants Extremities: Neg cyanosis; 2+ edema b/l lower extremities with venous stasis changes, toughened skin, not warm to touch; skin dry and flaky with no weeping Neurological: Speech clear; Gross motor/sensory function intact; Neg focal neurologic deficits Psychiatric: Appropriate mood/affect Skin: Normal Color; Warm/Dry; otherwise as above with extremities PG Care Time/CCT Total # of Minutes Spent Total Time Spent with Patient: Total time spent is greater than 50% in coordination of care (as documented) at patient's floor/unit and/or counseling patient: Coding Level of Care Code 23241 Subseq Hosp Care Lvl 2 Diagnoses Bilateral pleural effusion J90 Acute on chronic combined systolic and diastolic CHF (congestive heart failure) I50.43 Hypoxia R09.02 Acute on chronic renal insufficiency N28.9; N18.9 Multifocal pneumonia J18.9 Antiplatelet or antithrombotic long-term use Z79.02 Atrial fibrillation I48.19 Atrial fibrillation type: persistent (not longstanding) Thoracic spine fracture S22.009A Ischemic cardiomyopathy I25.5 Major depressive disorder F32.9 Major depression recurrence: unspecified whether recurrent Active/Remission status: currently active Major depression episode severity: unspecified Bilateral edema of lower extremity R60.0 (1) Atrial fibrillation Atrial fibrillation type: persistent (not longstanding) Qualified Code(s): I48.19 - Other persistent atrial fibrillation (2) Major depressive disorder Major depression recurrence: unspecified whether recurrent Active/Remission status: currently active Major depression episode severity: unspecified Qualified Code(s): F32.9 - Major depressive disorder, single episode, unspecified
[2021-08-07] MEDS: AMIODARONE 200 MG TAB PO SCH (20:28)
[2021-08-08] MEDS: APIXABAN 5 MG TABLET PO SCH ×2 (08:34→20:01)
[2021-08-08] MEDS: EUCERIN CR 120 GM JAR EXT SCH ×2 (08:34→20:02)
[2021-08-08] MEDS: SERTRALINE HCL 50 MG TABLET PO SCH (08:34)
[2021-08-08] MEDS: buPROPion SR 100 MG TABCR PO SCH ×2 (08:34→20:01)
[2021-08-08] MEDS: CLOPIDOGREL BISULFATE 75 MG TAB PO SCH (08:34)
--- NOTE | 2021-08-08 10:11 | Palliative Care Consultation ---
Date of Consultation August 08, 2021 Assessment & Plan (1) Palliative care encounter: Mr. Peterson is a 76 year old gentleman who was admitted for an acute on chronic CHF exacerbation which led to him subsequently falling and hitting his head. He had a recent admission from 07/11-07/24 for CHF as well. Aggressive diuresis has been performed without much relief. A CT of his chest revealed inoculated pleural effusions s/p thoracentesis with 1440mL removal. Unfortunately, he continued to experience shortness of breath despite aggressive diuresis and he has made indication that he would like to be made comfortable and cease aggressive treatment. Additional PMH includes: AF, CAD s/p PTCA stent placement, cardiomyopathy, depression and arthritis. Palliative medicine was consulted to discuss overall goals and provide symptom management. I was able to talk with the patient who was sitting on the [facility] and we were able to discuss his current medical situation. He was confused intermittently throughout the conversation but was able to recount his medical ailments. He said that he knows that all efforts have been taken to help with his diuresis and treatment and he stated that when he takes a step back, he would prefer focusing on comfort and quality and dignity towards end of life. He stated that he has never been nor has any children. He does have a nephew Alen who has been involved and has been assisting with decision making. I did call Alen and talk to him briefly, but he was in a meeting and indicated he would call back. Moisés decided he did not want to participate in PT today and would rather focus on his comfort. This was communicated with Case management who will arrange for him to have hospice upon his discharge and transition to [facility], likely tomorrow. Likely life expectancy up to a week or two. Continue PO meds as able and eventually transition away from non essential medications. Thanks for involving palliative medicine with this patient. (2) SOB (shortness of breath): Bilateral pleural effusions s/p thoracentesis 1440mL Aggressive diuresis for CHF Currently on 6LNC. He has been utilizing Morphine IV for air hunger/comfort; due to his worsening creatinine nearing 3, will switch him from IV Morphine to oral Roxicodone with discharge anticipation. (3) Weakness generalized: (4) Occipital scalp laceration: Encounter type: initial encounter Qualified Code(s): S01.01XA - Laceration without foreign body of scalp, initial encounter History of Present Illness Reason for Consultation: goals of care/symptom management Requesting Physician: Stephany Christine PA-C Attending Physician: Justin Rosenthal DO History of Present Illness Mr. Peterson is a 76 year old gentleman who was admitted for an acute on chronic CHF exacerbation which led to him subsequently falling and hitting his head. He had a recent admission from 07/11-07/24 for CHF as well. Aggressive diuresis has been performed without much relief. A CT of his chest revealed innoculated pleural effusions s/p thoracentesis with 1440mL removal. Unfortunately, he continued to experience shortness of breath despite aggressive diuresis and he has made indication that he would like to be made comfortable and cease aggressive treatment. Additional PMH includes: AF, CAD s/p PTCA stent placement, cardiomyopathy, depression and arthritis. Palliative medicine was consulted to discuss overall goals and provide symptom management. Please see A/P for further details. Thanks for involving Palliative medicine with this patient. Allergies Allergy/AdvReac Type Severity Reaction Status Date / Time spironolactone AdvReac Severe Hyperkalemia, Verified 07/26/21 19:06 bradycardia Oobwxvn-MVJ-QlB Reductase AdvReac Intermediate Myalgias Verified 07/26/21 19:06 Inhibitor [Lounuju-Mog-Wll Reductase Inhibitor] Home Medications Medication Instructions Recorded Confirmed Type vitamins A,C,G-tnnr-hzdsop 14,320 1 cap PO BID 05/11/19 07/26/21 History unit-226 mg-200 unit capsule (PreserVision AREDS) amiodarone 200 mg tablet (Pacerone) 200 mg PO HS 10/06/20 07/26/21 History sertraline 50 mg tablet (Zoloft) 50 mg PO QAM 11/14/20 07/26/21 History apixaban 5 mg tablet (Eliquis) 5 mg PO BID #180 tab 03/28/21 07/26/21 Rx clopidogrel 75 mg tablet (Plavix) 75 mg PO QAM 05/02/21 07/26/21 History nitroglycerin 0.4 mg sublingual 0.4 mg SL Q5M PRN 05/02/21 07/26/21 History tablet (Nitrostat) metoprolol succinate 50 mg capsule 50 mg PO BID #60 ea 05/13/21 07/26/21 Rx sprinkle, ext. release 24 hr tramadol 50 mg tablet 50 mg PO Q6H PRN 05/18/21 07/26/21 History albuterol sulfate 90 mcg/actuation 2 puff INHALATION Q6H PRN #6.7 g 06/26/21 07/26/21 Rx aerosol inhaler (Ventolin HFA) colestipol 1 gram tablet (Colestid) 2 g PO QAM tab 07/05/21 07/26/21 History allopurinol 100 mg tablet 100 mg PO DAILY #30 tab 07/24/21 07/26/21 Rx bumetanide 2 mg tablet 2 mg PO BID #120 tab 07/24/21 07/26/21 Rx bupropion HCl 100 mg tablet,12 hr 100 mg PO BID #60 ea 07/24/21 07/26/21 Rx sustained-release potassium chloride 20 mEq 20 meq PO DAILY #30 tab 07/24/21 07/26/21 Rx tablet,extended release(part/cryst) sacubitril 24 mg-valsartan 26 mg 1 tab PO BID #60 tab 07/24/21 07/26/21 Rx tablet (Entresto) gvjbnibm-lga-pasqf acid 300 1 tab PO DAILY 07/26/21 07/26/21 History mcg-lycopene 600 mcg-lutein 300 mcg tablet (Centrum Silver Men) Patient History Medical History (Updated 08/08/21 @ 10:10 by LISSETTE Nettles) Arthritis back, knees Atrial fibrillation New onset a. fib 08/2020 in setting of NSTEMI (which resulted in placement of 3 stents) Bilateral edema of lower extremity Bilateral pleural effusion Chronic anticoagulation Chronic systolic heart failure Coronary artery disease stent x1 (2006), stents x3 (08/2020) Diastolic CHF Newly diagnosed during 03/2020 admission, responded well to diuretics > discharged on diuretics and referred to HF clinic per cardiology records Fall from standing Gout of ankle Hx of myocardial infarction 2006, NSTEMI (08/2020 > 3 stents) Ischemic cardiomyopathy Low back pain Lyme disease hx of 2018 Major depressive disorder Obesity Palliative care encounter Pulmonary embolism 5+ years ago Surgical History History of prostate biopsy S/P coronary artery stent placement stent x1 (2006), stents x3 (08/2020) Family History Family/Other Prostate cancer Father Heart disease Mother Bone cancer Sister Colon cancer Social History Smoking Status: Never smoker Second Hand Exposure: No; Hx Alcohol Use: No Hx Substance Use: No Preferred Language: Faroese Communication Ability: Effective [employer] Required: No Beliefs That Will Affect Care: None marital status: Single Current Living Situation: Long-Term current occupational status: retired Feels Safe at Home: Yes Diet Comment: Has special diet unsure what kind Assistive Devices: Walker Review of Systems Review of Systems: Oonair System Assessment Scale: Pain: 0/3 SOB: 2/3 Anxiety: 1/3 Lack of Appetite: 1/3 Palliative Performance Scale: 30% Physical Exam Constitutional: + frail appearing and comfortable ENMT: Mouth: + dry oral mucous membranes Respiratory: + uses accessory muscles Cardiovascular: Rate/Rhythm: regular rate and regular rhythm Heart Sounds: normal S1 and normal S2 Extremities: normal capillary refill Gastrointestinal (Abdomen): Inspection/Auscultation: normal bowel sounds Skin: + pallor Results & Data ([facility]) Vital Signs (Past 12 Hours) Vital Signs Temp Pulse Resp BP Pulse Ox 08/08/21 08:25 36.5 C 80 18 126/77 91 08/07/21 22:26 36.4 C L 73 18 111/76 90 PG Care Time/CCT Total # of Minutes Spent Total Time Spent with Patient: Total time spent is greater than 50% in coordination of care (as documented) at patient's floor/unit and/or counseling patient: 100 minutes Coding Level of Care Code 78701 Inpt Consult Level 3 Diagnoses Palliative care encounter Z51.5 SOB (shortness of breath) R06.02 Weakness generalized R53.1 Occipital scalp laceration S01.01XA Encounter type: initial encounter Time Spent (min) 100
[2021-08-08] MEDS: AMIODARONE 200 MG TAB PO SCH (20:02)
--- NOTE | 2021-08-08 20:25 | Hospitalist Progress Note ---
Date of Service August 08, 2021 Assessment & Plan (1) Bilateral pleural effusion: Plan: - Noted via CT scan to be moderate to large on L and small on R; he is s/p L thoracentesis with 1440 mL out - Likely d/t HFrEF (last echo LV EF 30-35%) - Unfortunately, pt has not tolerated aggressive diuresis - at this time minimal improvement in respiratory status even with thoracentesis and attempts at diuresis - still requiring supplemental O2 and intermittent low BPs and rising renal function - Was on PO Bumex 2mg BID at home which has required adjustments throughout his stay d/t BP issues -- Maybe once a day dosing to help with breathing? However with rising renal function that dosing may not be sufficient to produce a response - Given dose of Metolazone 2.5mg PO x1 on 08/01 with good response - Pulmonology consulted for thoracentesis -- performed 08/04 by Nikolai Valladares PA-C (2) Acute on chronic combined systolic and diastolic CHF (congestive heart failure): Plan: - His regimen of Toprol XL, Entresto, and Bumex all on hold d/t hypotension - Daily fluid restriction 1800 mL - Initiate Morphine to help with comfort/air hunger (3) Hypoxia: Plan: - Multifactoral -- multifocal PNA + CHF w/ bilateral L>R pleural effusions (4) Acute on chronic renal insufficiency: Plan: - Chronic kidney disease stage 3 with a baseline creat of 1.9 - CIRILO on CKD secondary to ATN and CRS - Diuretics on hold d/t BP - Nephrology was consulted, appreciated their assistance but there is no plan to pursue HD and they have signed off - Becoming oliguric (5) Multifocal pneumonia: Plan: - D/T hospitalization 07/11 thru 07/24 he was placed on HAP coverage w/ Zosyn, Levaquin, and Vanco (uncertain if truly bacterial v viral but BioFire was negative) - Transitioned to oral Levaquin and Vancomycin (d/t +MRSA screen) on 08/04; however, abx stopped at pt request on 08/05 (6) Antiplatelet or antithrombotic long-term use: Plan: - On both Plavix and Eliquis (7) Atrial fibrillation: Plan: - (Paroxysmal) - Continue Amiodarone, Eliquis (8) Thoracic spine fracture: Plan: - Incidentally found on CT chest w/o contrast - Does not seem to be having pain associated with the fracture (only admits to low back pain which is chronic for him) - Dr. Zhou consulted, requested MRI, results reviewed no plans for surgical intervention (9) Ischemic cardiomyopathy: Plan: - See above (10) Major depressive disorder: Plan: - Continue Sertraline and Bupropion (11) Bilateral edema of lower extremity: Plan: - Chronic -- combination of chronic venous stasis and biventricular CHF - Supposed to be wearing compression stockings Plan: Discussion with previous PA and I discussed with patient again as he would like comfort measures and no further interventions. He requested stopping Abx and discussed again with him and he would not want to restart these. He has expressed understanding of his life expectancy to be limited as he is aware of his decline over the past months. Discussed with palliative care to assist in any additional arrangements - Morphine for comfort; will stop labs; will discuss if he would like ongoing medications (Eliquis, etc); updated case management and Rx signed for hospice - To go to [facility] tomorrow on hospice Admission and Anticipated Discharge Date Admission Date: July 26, 2021 Subjective Pt continues to endorse wanting to focus on comfort. Mostly complaining of fatigue. Is up to 6 L NC. BP is improved. Will discuss with him tomorrow to see if doing at least once a day diuretics to try and help with breathing for comfort focus only as his renal function will likely continue to elevate. He plans to go to [facility] tomorrow on hospice services. Discussed with case management and palliative care. Rx provided to case management. Review of Systems Review of Systems: All systems reviewed & are unremarkable except as noted in Subjective Physical Exam Physical Exam: PHYSICAL EXAM General Appearance: frail appearing but nontoxic; mild respiratory distress; A&O x 3 with moments of confusion HEENT: Head is normocephalic; Mucous membranes moist Neck: Supple; Trachea midline; Neg JVD Heart: RRR with murmur Lungs: Fine crackles bilateral; Respirations mildly labored Abdomen: Soft, non-tender, non-distended; Positive BS x 4 quadrants Extremities: Neg cyanosis; 2+ edema b/l lower extremities with venous stasis changes, toughened skin, not warm to touch; skin dry and flaky with no weeping Neurological: Speech clear; Gross motor/sensory function intact; Neg focal neurologic deficits Psychiatric: Appropriate mood/affect Skin: Normal Color; Warm/Dry; otherwise as above with extremities Results & Data Results & Data ([facility]) Vital Signs (Past 12 Hours) Vital Signs Temp Pulse Pulse Resp BP Pulse Ox 08/08/21 16:25 36.4 C L 77 16 114/67 96 08/08/21 08:25 36.5 C 80 18 126/77 91 PG Care Time/CCT Total # of Minutes Spent Total Time Spent with Patient: Total time spent is greater than 50% in coordination of care (as documented) at patient's floor/unit and/or counseling patient: Coding Level of Care Code 11621 Subseq Hosp Care Lvl 2 Diagnoses Bilateral pleural effusion J90 Acute on chronic combined systolic and diastolic CHF (congestive heart failure) I50.43 Hypoxia R09.02 Acute on chronic renal insufficiency N28.9; N18.9 Multifocal pneumonia J18.9 Antiplatelet or antithrombotic long-term use Z79.02 Atrial fibrillation I48.19 Atrial fibrillation type: persistent (not longstanding) Thoracic spine fracture S22.009A Ischemic cardiomyopathy I25.5 Major depressive disorder F32.9 Major depression recurrence: unspecified whether recurrent Active/Remission status: currently active Major depression episode severity: unspecified Bilateral edema of lower extremity R60.0 (1) Atrial fibrillation Atrial fibrillation type: persistent (not longstanding) Qualified Code(s): I48.19 - Other persistent atrial fibrillation (2) Major depressive disorder Major depression recurrence: unspecified whether recurrent Active/Remission status: currently active Major depression episode severity: unspecified Qualified Code(s): F32.9 - Major depressive disorder, single episode, unspecified
[2021-08-09] MEDS: oxyCODONE HCL SOLN 5 MG/5 ML UDC PO PRN ×2 (08:04→12:50)
[2021-08-09] MEDS: EUCERIN CR 120 GM JAR EXT SCH (08:04)
[2021-08-09] MEDS: buPROPion SR 100 MG TABCR PO SCH (08:08)
[2021-08-09] MEDS: SERTRALINE HCL 50 MG TABLET PO SCH (08:08)
[2021-08-09] MEDS: CLOPIDOGREL BISULFATE 75 MG TAB PO SCH (08:08)
[2021-08-09] MEDS: APIXABAN 5 MG TABLET PO SCH (08:08)
--- NOTE | 2021-08-09 15:59 | Discharge Summary ---
Date of Service August 09, 2021 Principal Diagnosis Comfort Measures; Acute Congestive Heart Failure; Fall with Scalp Laceration Discharge Exam PHYSICAL EXAM General Appearance: frail appearing but nontoxic; mild respiratory distress; A&O x 3 with moments of confusion HEENT: Head is normocephalic; Mucous membranes moist Neck: Supple; Trachea midline; Neg JVD Heart: RRR with murmur Lungs: Fine crackles bilateral; Respirations mildly labored Abdomen: Soft, non-tender, non-distended; Positive BS x 4 quadrants Extremities: Neg cyanosis; 2+ edema b/l lower extremities with venous stasis changes, toughened skin, not warm to touch; skin dry and flaky with no weeping Neurological: Speech clear; Gross motor/sensory function intact; Neg focal neurologic deficits Psychiatric: Appropriate mood/affect Skin: Normal Color; Warm/Dry; otherwise as above with extremities Discharge Data Allergies Allergy/AdvReac Type Severity Reaction Status Date / Time spironolactone AdvReac Severe Hyperkalemia, Verified 07/26/21 19:06 bradycardia Dizssgz-BUJ-RmO Reductase AdvReac Intermediate Myalgias Verified 07/26/21 19:06 Inhibitor [Kdbtsro-Khq-Myz Reductase Inhibitor] Consultations 07/26/21 22:53 ED Decision to Admit Stat 08/01/21 08:50 Consult Orthopedic Surgery Routine Consult Pulmonology Routine 08/04/21 09:18 Consult Nephrology Routine 08/07/21 15:56 Consult Palliative Care Routine Ordered Studies Cervical Spine CT 07/26/21 18:[address] DOSE: 1711.87 mGy.cm HISTORY: fall TECHNIQUE: Multiaxial CT images of the cervical spine were performed and reformatted in the sagittal and coronal plane without the use of contrast. A dose lowering technique was utilized adhering to the principles of ALARA. COMPARISON: None. FINDINGS: No fractures. No subluxation. Prevertebral soft tissues and the C1-C2 interval are intact. No pneumothorax. Bony fusion of the C3-T1 vertebral bodies and majority of the facets. This raises the possibility of ankylosing spondylitis. Multifocal patchy airspace opacities within the lung apices consistent with a pneumonia. There is a small left pleural effusion which has improved in the interval. IMPRESSION: 1. No fractures within the cervical spine. 2. Multifocal patchy airspace opacities within the lung apices. This likely represents a viral pneumonia. 3. Small left pleural effusion which is improved. 4. Bony fusion of the C3-T1 levels which may represent ankylosing spondylitis. ACT 112: Negative or not required by law. Electronically signed by: Adebayo Whitehead M.D. 07/26/2021 7:[address] 07/26/21 18:[address] DOSE: HISTORY: fall, hit post head on eliquis TECHNIQUE: Multiaxial CT images of the head were performed without the use of intravenous contrast. Automated exposure control was utilized for this study. A dose lowering technique was utilized adhering to the principles of ALARA. Comparison: Head CT 05/02/2021. Findings: The paranasal sinuses and mastoid air cells are clear. The calvarium and skull base are intact. There is no mass, hematoma, midline shift, acute infarct. White matter hypodensity is nonspecific but suggestive of microvascular ischemic change. The ventricles and sulci demonstrate mild age-related involutional changes. Right posterior scalp swelling with associated scalp laceration skin michelle. Impression: No acute intracranial abnormality. Right posterior scalp injury. ACT 112: Negative or not required by law. Electronically signed by: Adebayo Whitehead M.D. 07/26/2021 7:44 PM Chest X-Ray 07/26/21 18:54 XR chest 1V portable HISTORY: Fall. COMPARISON: Chest 07/11/2021. FINDINGS: No pneumothorax. A small left pleural effusion has slightly improved. A few scattered patchy airspace opacities are seen within the lungs. The heart remains enlarged. There is mild central pulmonary vascular congestion without overt edema. There is nondisplaced left lateral eighth rib fracture. IMPRESSION: 1. Small scattered patchy airspace opacities. This likely represents a pneumonia could be due to a viral process. 2. Cardiomegaly with mild pulmonary vascular congestion. This has improved. 3. Small left pleural effusion has also improved. 4. Nondisplaced left lateral eighth rib fracture. ACT 112: Negative or not required by law. Electronically signed by: Adebayo Whitehead M.D. 07/26/2021 8:23 PM Chest X-Ray 07/31/21 08:00 XR chest 1V portable CLINICAL HISTORY: Ongoing Hypoxia; CHF vs PNA COMPARISON STUDY: Chest radiograph July 26, 2021. FINDINGS: Lung volumes are normal. There is no pneumothorax. Small left pleural effusion persists. Cardiomegaly is unchanged. Asymmetric left lung airspace opacities have slightly increased. Mild interstitial thickening persists. IMPRESSION: 1. Increase in asymmetric left lung opacity. This may reflect an infectious process or asymmetric pulmonary edema. 2. Persistent left pleural effusion. 3. Cardiomegaly. ACT 112: Negative or not required by law. Electronically signed by: Choco Davidson M.D. 07/31/2021 7:[address] 07/31/21 17:01 CT SCAN OF THE CHEST WITHOUT IV CONTRAST CLINICAL HISTORY: Hypoxia. Abnormal chest x-ray. COMPARISON STUDY: Chest x-ray dated 07/31/2021. Chest CT dated 03/07/2020. TECHNIQUE: CT scan of the thorax was performed from the thoracic inlet to the upper abdomen. Images are reviewed in the axial, sagittal, and coronal planes. IV contrast was not administered for this examination as per the referring clinician. A dose lowering technique was utilized adhering to the principles of ALARA. CT DOSE: 699.48 mGy.cm FINDINGS: Thyroid: Normal in size and heterogeneous in attenuation. Thoracic aorta: The thoracic aorta is normal in caliber and demonstrates standard 3-vessel arch anatomy. Heart: The heart is enlarged and without pericardial effusion. The coronary arteries are densely calcified. Lungs and pleural spaces: Evaluation of the lung parenchyma is degraded by motion artifact. 0There is a moderate left pleural effusion with atelectasis of the left lower lung. Trace pleural effusion is seen in the right. Patchy airspace consolidation is present throughout both lungs. There is no pneumothorax. The trachea and central airways appear clear. Mediastinum: Numerous mildly enlarged mediastinal lymph nodes measure up to 14 mm in short axis. These are likely reactive. Anita: Not well assessed without IV contrast. Axillae: There is no axillary lymphadenopathy. Upper abdomen: There is a small hiatal hernia. Partially visualized upper abdominal viscera is within normal limits. Skeletal structures: The skeletal structures are osteopenic. 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 There is a complex horizontal/oblique fracture of the T4 vertebral body with mild loss of height. This involves the anterior and posterior cortex, and also reaches the anterior cortex. Fracture likely involves the T4-T5 disc space, and there is also fracture within the anterior right aspect of the T5 vertebral body. This involves the posterior elements of T5 including the right pedicle, the left pedicle and the left lamina. There is also likely fracture through the base of the right transverse process of T5. No lytic or blastic bony lesions are seen. Arthritic change is seen in the shoulders. There are subacute/healing fractures of the right posterior 9th and 10th ribs. IMPRESSION: 1. There is a complex and subacute appearing horizontal/oblique fracture through the body of T4 as detailed above with mild loss of height. This fracture extends through the T4-T5 disc space, and also involves the body and posterior elements of T5. This fracture is likely unstable. 2. There are subacute/healing right posterior 9th and 10th rib fractures. 3. Multifocal airspace consolidation seen throughout both lungs is typical for pneumonia. Clinical correlation will be required and radiographic follow-up to resolution is recommended. 4. Cardiomegaly. 5. Moderate left pleural effusion with atelectasis of the left lower lung. 6. Trace right pleural effusion. 7. Additional findings as above. ACT 112: Negative or not required by law. Electronically signed by: Nikolai Bacon M.D. 07/31/2021 6:[address] 08/01/21 08:56 CT thoracic spine wo con CLINICAL HISTORY: Evaluate T4 fracture COMPARISON STUDY: CT of the chest from 07/31/2021 CT DOSE: 1210.05 mGy.cm TECHNIQUE: Standard CT of the Thoracic Spine was performed without IV contrast. A dose lowering technique was utilized adhering to the principles of ALARA. FINDINGS: Bones: There is evidence for a pathologic fracture of the T4 vertebral body. There is evidence for a lytic, destructive lesion of the T4 vertebral body with a comminuted, pathologic fracture through the body of T4 which extends into the posterior arch of T4 and the posterior elements. There is no posterior extension of bone fragments into the spinal canal from the vertebral body. There is minimal anterior extension of bone fragments from the posterior arch of T4. However, there is no evidence for spinal cord compression. The overall fracture of the vertebral body is stable due to calcification of the anterior longitudinal ligaments at T3-4 and T4-5 along with involving the remainder of the thoracic spine. The fracture does extend transversely through the T4 vertebral body. There is only mild loss of height of the T4 vertebral body. The heights of the remaining thoracic vertebral bodies are maintained. The vertebral bodies are in anatomic alignment. Disc spaces: Mild to moderate disc space narrowing is seen throughout the thor acic spine. Pedicles::The remaining pedicles are intact bilaterally. Soft tissues: There is only mild paraspinal soft tissue swelling present. IMPRESSION: MR findings most characteristic of a pathologic comminuted fracture of the T4 vertebral body as described above. The anterior fracture fragments are stabilized from calcification of the anterior longitudinal ligament at T3-4 and T4-5. There is mild displacement of the posterior fragments of the posterior spinal arch. However, no cord compression is identified. ACT 112: Negative or not required by law. Electronically signed by: Tremayne Goldsmith M.D. 08/01/2021 10:47 AM Thoracic Spine MRI 08/01/21 14:35 MRI OF THE THORACIC SPINE WITH AND WITHOUT CONTRAST CLINICAL HISTORY: rule out pathologic fracture COMPARISON: Thoracic spine CT August 01, 2021. TECHNIQUE: Utilizing a 1.5 Tuyet magnet and dedicated coil, multiplanar, multiecho imaging of the thoracic spine was performed before and after the intravenous administration of 11 cc. FINDINGS: Alignment of the thoracic spine is anatomic. Extensive anterior osteophytosis is noted. This is better depicted on thoracic spine CT. Note is made of an oblique transverse fracture through the T4 vertebral body without significant loss of vertebral body height. There is associated marrow edema and enhancement of the fracture is likely subacute when correlating with CT. Fracture extends into the posterior elements of T5, involving the right pedicle and bilateral superior articulating facets. Fracture may also slightly extends into the spinous process of T4. There is mild associated epidural enhancement. There is no epidural fluid collection. Thoracic cord signal suboptimally assessed on this exam but likely within normal limits. There is an old T2 fracture. No acute thoracic spine fracture is noted. A few T1 and T2 hyperintense lesions within the thoracic spine represent hemangiomas. There is no suspicious marrow replacement. A left pleural effusion and airspace opacities within lungs are better depicted on prior chest CT. IMPRESSION: 1. Oblique transverse fracture through T4 which extends through the posterior elements of T5, as described above. This represents a 3 column fracture which may be unstable. When correlating with recent CT, this fracture is likely subacute and may represent a developing pseudarthrosis in the setting of ankylosing spondylitis or diffuse idiopathic skeletal hyperostosis. Edema and enhancement along the fracture, including within the posterior epidural space. No epidural fluid collection. No evidence for pathologic fracture. 2. Normal thoracic cord signal and caliber. 3. Old T2 fracture. ACT 112: Negative or not required by law. Electronically signed by: Choco Davidson M.D. 08/02/2021 10:39 AM Chest X-Ray 08/02/21 11:27 SINGLE VIEW CHEST CLINICAL HISTORY: Pleural effusion. Congestive heart failure. Hypotension. FINDINGS: An AP, portable, upright chest radiograph is compared to chest x-ray and chest CT dated 07/31/2021. The heart is enlarged noting atherosclerotic calcification of the thoracic aorta. There is pulmonary vascular congestion. Airspace opacities are present throughout both lungs. There is a layering left pleural effusion with associated left basilar consolidation. Trace pleural effusion is noted on the right. No pneumothorax is seen. The skeletal structures are osteopenic. The bony thorax is grossly intact. IMPRESSION: 1. Cardiomegaly with pulmonary vascular congestion. 2. Bilateral airspace opacities could represent mild pulmonary edema versus an infectious/inflammatory pneumonitis. This is similar to 07/31/2021. 3. Left larger than right pleural effusions ACT 112: Negative or not required by law. Electronically signed by: Nikolai Bacon M.D. 08/02/2021 12:25 PM Chest X-Ray 08/04/21 07:00 XR chest 1V portable HISTORY: Shortness of breath. Pleural effusion COMPARISON: Chest 08/02/2021. FINDINGS: No pneumothorax. Small left pleural effusion has slightly improved. Patchy bilateral airspace opacities and interstitial thickening has slightly progressed. The heart remains mildly enlarged. Trace right pleural effusion persists. IMPRESSION: 1. Slight progression of bilateral patchy airspace opacities. This likely represents a viral pneumonia. 2. Small left pleural effusion has slightly improved. A trace right pleural effusion persists. 3. Cardiomegaly and mild pulmonary vascular congestion remain unchanged. ACT 112: Negative or not required by law. Electronically signed by: Adebayo Whitehead M.D. 08/04/2021 7:58 AM Chest X-Ray 08/04/21 11:37 XR chest 1V portable CLINICAL HISTORY: S/P Thoracentesis. COMPARISON STUDY: 08/31/2021 at 6:52 AM TECHNIQUE: 1 view of the chest FINDINGS: Single frontal view of the chest demonstrates the cardiomediastinal silhouette to be within normal limits. Compared to previous examination, the patient is status post left thoracentesis with only minimal blunting of left costophrenic angle now seen. There has been resolution of left basilar atelectasis. With no evidence for pneumothorax. Interstitial and alveolar opacities are again seen bilaterally. There is no evidence for vascular congestion. There is no acute osseous pathology. IMPRESSION: 1. Status post left thoracentesis with only minimal residual blunting left costophrenic angle. 2. Resolution of left basilar atelectasis with no evidence for pneumothorax. 3. Bilateral interstitial and alveolar opacities are again seen. ACT 112: Negative or not required by law. Electronically signed by: Tremayne Goldsmith M.D. 08/04/2021 12:06 PM Hospital Course (1) Bilateral pleural effusion: - Noted via CT scan to be moderate to large on L and small on R; he is s/p L thoracentesis with 1440 mL out - Likely d/t HFrEF (last echo LV EF 30-35%) - -Unfortunately, pt has not tolerated aggressive diuresis - at this time minimal improvement in respiratory status even with thoracentesis and attempts at diuresis - still requiring supplemental O2 and intermittent low BPs and rising renal function - Mr. Peterson would like to continue the home medications as he can. He had lower BPs with his blood pressure meds and diuretics. Given increased renal function the current dosing may not be enough to impact much difference but could consider Bumex as needed to see if that helps with breathing vs focus more on Roxanol for air hunger as patient has stated multiple times he would like to focus on avoiding suffering - Was on PO Bumex 2mg BID at home which has required adjustments throughout his stay d/t BP issues - Given dose of Metolazone 2.5mg PO x1 on 08/01 with good response but only short duration of response - Pulmonology consulted for thoracentesis -- performed 08/04 by Nikolai Valladares PA-C (2) Acute on chronic combined systolic and diastolic CHF (congestive heart failure): - His regimen of Toprol XL, Entresto, and Bumex all on hold d/t hypotension - Daily fluid restriction 1800 mL - can lift in support of comfort - Initiate Morphine to help with comfort/air hunger (3) Hypoxia: - Multifactoral -- multifocal PNA + CHF w/ bilateral L>R pleural effusions (4) Acute on chronic renal insufficiency: - Chronic kidney disease stage 3 with a baseline creat of 1.9 prior to admission now in 2s and increasing - CIRILO on CKD secondary to ATN and CRS - Diuretics on hold d/t BP - Nephrology was consulted, appreciated their assistance but there is no plan to pursue HD and they have signed off - Becoming oliguric (5) Multifocal pneumonia: - D/T hospitalization 07/11 thru 07/24 he was placed on HAP coverage w/ Zosyn, Levaquin, and Vanco (uncertain if truly bacterial v viral but BioFire was negative) - Transitioned to oral Levaquin and Vancomycin (d/t +MRSA screen) on 08/04; however, abx stopped at pt request on 08/05 (6) Antiplatelet or antithrombotic long-term use: - On both Plavix and Eliquis (7) Atrial fibrillation: - (Paroxysmal) - Continue Amiodarone, Eliquis (8) Thoracic spine fracture: - Incidentally found on CT chest w/o contrast - Does not seem to be having pain associated with the fracture (only admits to low back pain which is chronic for him) - Dr. Zhou consulted, requested MRI, results reviewed no plans for surgical intervention (9) Ischemic cardiomyopathy: - See above (10) Major depressive disorder: - Continue Sertraline and Bupropion (11) Bilateral edema of lower extremity: - Chronic -- combination of chronic venous stasis and biventricular CHF - Supposed to be wearing compression stockings Discussion with previous PA and I discussed with patient again as he would like comfort measures and no further interventions. He requested stopping Abx and discussed again with him and he would not want to restart these. He has expressed understanding of his life expectancy to be limited as he is aware of his decline over the past months. Discussed with palliative care to assist in any additional arrangements. Mr. Peterson has started to become more confused. However, prior to starting comfort measures he mentioned multiple times he new is life expectancy was limited and want to avoid suffering if possible - Roxanol for comfort - [facility] on hospice - suspect may only have weeks given his cardiac standpoint and worsening O2 requirements Total Time Total Time Spent Total Time Spent (In Minutes): Spent greater than 30 minutes preparing patient for discharge. This includes discussion with patient/family, assessment, intervention, medication reconciliation, and coordination of care. Discharge Plan Discharge Items Patient Disposition: Hospice - Medical Facility Reason For Visit: CHF EXACERBATION Discharge Diagnosis: CHF Exacerbation Activity: Resume your previous activity Non-emergency contact: Primary Care Provider Call non-emergency contact if: you have any medication questions, your symptoms worsen and you have a fever Follow-up/Referrals: PCP,NO [Physician] - Diet: Heart Healthy Fluids: 1800ml (7 cups) Addtl Attending Provider Instructions: Bilateral pleural effusion: - Noted via CT scan to be moderate to large on L and small on R; he is s/p L thoracentesis with 1440 mL out - Likely d/t HFrEF (last echo LV EF 30-35%) -Unfortunately, pt has not tolerated aggressive diuresis - at this time minimal improvement in respiratory status even with thoracentesis and attempts at diuresis - still requiring supplemental O2 and intermittent low BPs and rising renal function - Mr. Peterson would like to continue the home medications as he can. He had lower BPs with his blood pressure meds and diuretics. Given increased renal function the current dosing may not be enough to impact much difference but could consider Bumex as needed to see if that helps with breathing vs focus more on Roxanol for air hunger as patient has stated multiple times he would like to focus on avoid suffering - Pulmonology consulted for thoracentesis -- performed 08/04 by Nikolai Valladares PA-C Acute on chronic combined systolic and diastolic CHF (congestive heart failure): - His regimen of Toprol XL, Entresto, and Bumex all on hold d/t hypotension - Daily fluid restriction 1800 mL - can lift for comfort - Continue Roxanol to help with comfort/air hunger Hypoxia: - Multifactoral -- multifocal PNA + CHF w/ bilateral L>R pleural effusions Acute on chronic renal insufficiency: - Chronic kidney disease stage 3 with a baseline creat of 1.9 - CIRILO on CKD secondary to ATN and CRS - Diuretics on hold d/t BP - Nephrology was consulted, appreciated their assistance but there is no plan to pursue HD and they have signed off - Becoming oliguric Multifocal pneumonia: - D/T hospitalization 07/11 thru 07/24 he was placed on HAP coverage w/ Zosyn, Levaquin, and Vanco (uncertain if truly bacterial v viral but BioFire was negative) - Transitioned to oral Levaquin and Vancomycin (d/t +MRSA screen) on 08/04; however, abx stopped at pt request on 08/05 Antiplatelet or antithrombotic long-term use: - On both Plavix and Eliquis Atrial fibrillation: - (Paroxysmal) - Continue Amiodarone, Eliquis Thoracic spine fracture: - Incidentally found on CT chest w/o contrast - Does not seem to be having pain associated with the fracture (only admits to low back pain which is chronic for him) - Dr. Zhou consulted, requested MRI, results reviewed no plans for surgical intervention Ischemic cardiomyopathy: - See above Major depressive disorder: - Continue Sertraline and Bupropion Bilateral edema of lower extremity: - Chronic -- combination of chronic venous stasis and biventricular CHF - Supposed to be wearing compression stockings Can continue to assess whether he would like to continue oral medications. He does have pneumonia and off medications. Have noticed he is getting more confused and suspect this will continue to worsen. Still can ask for his needs. Pending Studies at Discharge: No Stand-Alone Forms: My [facility] Skilled Items Patient informed of condition?: Yes DNR: Yes Discharge Level of Care: Other Communicable Disease: Yes (H/O MRSA) Discharge Prognosis: Stable Lines: None Urinary Catheter: No Medications and DC Order Prescriptions: Continued albuterol sulfate [Ventolin HFA] 90 mcg/actuation HFA aerosol inhaler 2 puff inhalation Q6H PRN (Reason: shortness of breath or wheezing) Qty: 6.7 RF: 0 Eliquis 5 mg tablet 5 mg PO BID Qty: 180 RF: 3 amiodarone [Pacerone] 200 mg tablet 200 mg PO HS RF: 0 clopidogrel [Plavix] 75 mg tablet 75 mg PO QAM RF: 0 colestipol [Colestid] 1 gram tablet 2 g PO QAM RF: 0 bupropion HCl 100 mg Tablet Sustained-Release 12 Hr 100 mg PO BID Qty: 60 RF: 0 sertraline [Zoloft] 50 mg tablet 50 mg PO QAM RF: 0 Discontinued PreserVision AREDS [id number] khyo-xv-aehy capsule 1 cap PO BID RF: 0 tramadol 50 mg tablet 50 mg PO Q6H PRN (Reason: Pain) RF: 0 nitroglycerin [Nitrostat] 0.4 mg tablet, sublingual 0.4 mg SL Q5M PRN (Reason: chest pain) RF: 0 metoprolol succinate 50 mg capsule,sprinkle,ER 24hr 50 mg PO BID Qty: 60 RF: 5 Entresto 24-26 mg Tablet 1 tab PO BID Qty: 60 RF: 0 potassium chloride 20 mEq Tablet,Er Particles/Crystals 20 meq PO DAILY Qty: 30 RF: 0 allopurinol 100 mg tablet 100 mg PO DAILY Qty: 30 RF: 0 bumetanide 2 mg tablet 2 mg PO BID Qty: 120 RF: 2 Centrum Silver Men 300-600-300 mcg Tablet 1 tab PO DAILY RF: 0 Discharge Orders: Discharge Order (Routine); Ordered 08/09/21 Ordered By: Stephany Moreno/Other Patient Handouts: What Is Hospice?, Starting Hospice Admission Data Admit Date/Time: 07/26/21 23:40 Attending Provider: Justin Rosenthal Admit Provider: Marquez Felton Primary Care Provider: Sohan Lawler Other Providers: Damien Zurita ; [facility] ; Marquez Felton ; Ruel Zhou ; Aiden Arceo ; [facility] Lu[facility] [place] ; [facility]Hol[facility] ; [facility] ; Latricia Vaughan ; Anusha Babcock Supervising Physician Co-Signing Physician Notes Attending note: patient seen and examined with Stephany Christine PA-C. I agree with her discharge summary. I personally reviewed the labs and imaging findings. patient is comfortable on oxygen, no distress discussed going to SNF on hospice, he is in agreement with this plan - Acute on chronic combined systolic and diastolic heart failure, bilateral pleural effusions, acute hypoxic respiratory failure discharge to SNF on hospice, use Morphine for comfort continue cardiac medications with goal of comfort Coding Level of Care Code D/C DAY MANAGEMENT >30 MINS Diagnoses Bilateral pleural effusion J90 Acute on chronic combined systolic and diastolic CHF (congestive heart failure) I50.43 Hypoxia R09.02 Acute on chronic renal insufficiency N28.9; N18.9 Multifocal pneumonia J18.9 Antiplatelet or antithrombotic long-term use Z79.02 Atrial fibrillation I48.19 Atrial fibrillation type: persistent (not longstanding) Thoracic spine fracture S22.009A Ischemic cardiomyopathy I25.5 Major depressive disorder F32.9 Active/Remission status: currently active Major depression episode severity: unspecified Major depression recurrence: unspecified whether recurrent Bilateral edema of lower extremity R60.0
== END 2021-08-09 13:15 | disposition hospice, inpatient (51) | DRG 291 ==
LOC: ED 18:35 → SUATTDRO 23:40 → EDINP 23:40 → 3W 07-28 20:52